=== PATIENT | female | born 1960 | race Caucasian/White ===

== ENCOUNTER 2017-12-24 15:59 | Emergency (ER) | payer OTHER, SELFPAY ==
--- OUTSIDE RECORDS SUMMARY | 2017-12-24 16:03 | XMS REPORT | Clinical Summary ---
:1960 Author Organization [facility] Address [address] [place] [address] Phone Care Team Providers Name Role Phone Unavailable Primary Care Provider Unavailable Allergies No Known Allergies Current Medications Prescription Sig. Disp. Refills Start Date End Date Status gabapentin Take 1 63 capsule 0 12/14/2017 01/04/2018 Active (NEURONTIN) 100 MG capsule (100 capsuleIndications: mg total) by Small bowel mouth 3 perforation (HCC) (three) times daily for 21 days. HYDROcodone-acetami Take 1-2 30 tablet 0 12/14/2017 12/29/2017 Active nophen (NORCO tablets by 5-325) 5-325 mg per mouth every 4 tabletIndications: (four) hours Small bowel as needed for perforation (HCC) up to 15 days. Max Daily Amount: 12 tablets magnesium oxide Take 1 tablet 270 tablet 0 12/14/2017 03/14/2018 Active (MAG-OX) 400 mg (400 mg tabletIndications: total) by Small bowel mouth 3 perforation (HCC) (three) times daily for 90 days. methocarbamol Take 2 240 tablet 0 12/14/2017 01/13/2018 Active (ROBAXIN) 750 MG tablets tabletIndications: (1,500 mg Small bowel total) by perforation (HCC) mouth 4 (four) times daily for 30 days. potassium chloride Take 15 mLs 500 mL 0 12/14/2017 Active (KAYCIEL) 20 mEq/15 (20 mEq mL total) by solutionIndications mouth daily. : Small bowel perforation (HCC) traMADol (ULTRAM) Take 1 tablet 30 tablet 0 12/14/2017 12/29/2017 Active 50 mg (50 mg total) tabletIndications: by mouth Small bowel every 6 (six) perforation (HCC) hours as needed for up to 15 days. Max Daily Amount: [address] 1 patch 10 patch 0 12/16/2017 01/15/2018 Active (TRANSDERM-SCOP) 1 (1.5 mg mg over 3 days total) onto patchIndications: the skin Small bowel every third perforation (HCC) day for 30 days. ondansetron Take 1 tablet 120 tablet 1 12/14/2017 01/13/2018 Active (ZOFRAN, (4 mg total) HYDROCHLORIDE,) 4 by mouth MG every 6 (six) tabletIndications: hours as Small bowel needed for perforation (HCC) Nausea for up to 30 days. nystatin Take 5 mLs 220 mL 0 12/14/2017 12/25/2017 Active (MYCOSTATIN) (500,000 100,000 unit/mL Units total) suspensionIndicatio by mouth 4 ns: Small bowel (four) times perforation (HCC) daily for 11 days. fluconazole Take 1 tablet 7 tablet 0 12/15/2017 12/14/2017 Discontinued (DIFLUCAN) 100 MG (100 mg tabletIndications: total) by Small bowel mouth daily perforation (HCC) for 7 days. nystatin Take 5 mLs 140 mL 0 12/14/2017 12/14/2017 Discontinued (MYCOSTATIN) (500,000 100,000 unit/mL Units total) suspensionIndicatio by mouth 4 ns: Small bowel (four) times perforation (HCC) daily for 7 days. fluconazole Take 1 tablet 8 tablet 0 12/15/2017 12/23/2017 (DIFLUCAN) 100 MG (100 mg tabletIndications: total) by Small bowel mouth daily perforation (HCC) for 8 days. Active Problems Problem Noted Date Severe protein-calorie malnutrition (HCC) 11/08/2017 Small bowel perforation and open abdomen s/p washout, repair SBR x2 11/03/2017 (11/01), [Hx OSH] SBR x2, Tayolr procedure, open abdomen (10/18, 2/5-7) Sepsis following intra-abdominal surgery (HCC) 11/02/2017 Overview: First operations at OSH On total parenteral nutrition (TPN) 10/29/2017 Anemia, unspecified type 10/28/2017 Hypotension 10/28/2017 Small bowel obstruction (HCC) 10/27/2017 Smoker 10/27/2017 COPD (chronic obstructive pulmonary disease) (HCC) 10/27/2017 Encounters Date Type Specialty Care Team Description 12/08/2017 Anesthesia Event Gastroenterology Oliva Kumar MD 12/08/2017 Procedure Pass Gastroenterology 12/08/2017 Surgery Gastroenterology Addison Ta UPPER Timur ENDOSCOPY,BIOPSY 11/10/2017 Anesthesia Event Enrique Velázquez, STUDIO OPERATIONS ENGINEER IN CHARGE 11/10/2017 Procedure Pass 11/10/2017 Surgery Soumya Rainey LAPAROTOMY,EXPLORAT FMD DAVID Fu 11/07/2017 Anesthesia Event Anthony Alvarez MD 11/07/2017 Procedure Pass 11/07/2017 Surgery [place], LAPAROTOMY,EXPLORAT DAVID Maza MD 11/05/2017 Anesthesia Event Jina Pascual, STUDIO OPERATIONS ENGINEER IN CHARGE 11/05/2017 Procedure Pass 11/05/2017 Surgery [place], LAPAROTOMY,EXPLORAT DAVID Maza MD 11/04/2017 Procedure Pass 11/04/2017 Surgery [place], EXPLORATION,ABDOMEN Torey Duckworth MD 11/03/2017 Anesthesia Event Josselin Ellis MD 11/01/2017 Orders Only General Internal Medicine 11/01/2017 Procedure Pass 11/01/2017 Soumya Watson EXPLORATION,ABDOMEN F., 10/31/2017 Anesthesia Event Tonja River MD 10/27/[address] [facility], Small bowel - Encounter Medicine Torey Duckworth, perforation and 12/14/2017 open abdomen s/p Addison Ta washout, repair SBR Timur x2 (11/01), [Hx OSH] SBR x2, Taylor procedure, open abdomen (10/18, 2-7) (Primary Dx);Open wound of anterior abdominal wall with complication, initial encounter;Perforate d viscus;Hyperglycemi a;Moderate protein-calorie malnutrition (HCC);Other emphysema (HCC);On total parenteral nutrition (TPN);Smoker;Acute blood loss anemia;Leukocytosis , unspecified type;Hypokalemia after 12/23/2016 Social History Tobacco Use Types Packs/Day Years Used Date Heavy Tobacco Smoker Cigarettes Alcohol Use Drinks/Week oz/Week Comments Yes Sex Assigned at Date Recorded Not on file Last Filed Vital Signs Vital Sign Reading Time Taken Blood Pressure 139/69 12/14/2017 4:00 PM CDT Pulse 90 12/14/2017 4:00 PM CDT Temperature 35.9 C (96.7 F) 12/14/2017 4:00 PM CDT Respiratory Rate 18 12/14/2017 4:00 PM CDT Oxygen Saturation 94% 12/14/2017 4:00 PM CDT Inhaled Oxygen Concentration - - Weight 47.7 kg (105 lb 3.2 oz) 12/12/2017 3:22 AM CDT Height 157.5 cm (5' 2") 10/27/2017 8:00 PM BROKERAGE COORDINATOR Body Mass Index 19.24 12/12/2017 3:22 AM CDT Plan of Treatment Not on file Procedures Procedure Name Priority Date/Time Associated Diagnosis Comments UPPER ENDOSCOPY,BIOPSY 12/08/2017 10:00 AM Epigastric abdominal CDT pain LAPAROTOMY,EXPLORATORY 11/10/2017 3:20 AM INTERNAL ABDOMINAL BROKERAGE COORDINATOR BLEEDING Special Needs EMERGENCY-TO BE DONE NOW!!! WASHOUT,ABDOMINAL 11/07/2017 9:00 AM BROKERAGE COORDINATOR OPEN ABDOMEN LAPAROTOMY,EXPLORATORY 11/07/2017 9:00 AM BROKERAGE COORDINATOR OPEN ABDOMEN LAPAROTOMY,EXPLORATORY 11/05/2017 8:00 AM BROKERAGE COORDINATOR S/P EX LAP CLOSURE,ESOPHAGOSTOMY/ 11/04/2017 12:10 PM BROKERAGE COORDINATOR Ischemic bowel disease FISTULA-THORACIC/ ABDOMINAL (HCC) WASHOUT,ABDOMINAL 11/04/2017 12:10 PM BROKERAGE COORDINATOR Ischemic bowel disease (HCC) EXPLORATION,ABDOMEN 11/04/2017 12:10 PM BROKERAGE COORDINATOR Ischemic bowel disease (HCC) EXPLORATION,ABDOMEN 11/01/2017 10:45 AM BROKERAGE COORDINATOR OPEN ABDOMEN, ISCHEMIC BOWEL Special Needs (REQ TF) after 12/23/2016 Results PERMANENT LAB REPORT - SCAN (12/15/2017 2:10 PM)RHYTHM STRIP - SCAN (2017 2:10 PM)Calcium, Ionized (12/14/2017 6:12 AM)Only the most recent of43 resultswithin the time period is included. Component Value Ref Range Calcium, Ion 0.98 (L) 1.12 - 1.27 mmol/L pH, Blood 7.46 Specimen Performing Laboratory Blood - Line, Venous [facility] [address] [address] CBC with platelet count + automated diff (12/14/2017 6:12 AM)Only the most recent of45 resultswithin the time period is included. Component Value Ref Range WBC 10.5 3.5 - 10.5 K/L RBC 2.92 (L) 3.93 - 5.22 M/L Hemoglobin 8.5 (L) 11.2 - 15.7 GM/DL Hematocrit 27.5 (L) 34.1 - 44.9 % MCV 94.2 79.4 - 94.8 fL MCH 29.1 25.6 - 32.2 pg MCHC 30.9 (L) 32.2 - 35.5 GM/DL RDW 14.1 11.7 - 14.4 % Platelets 330 150 - 450 K/CU MM MPV 9.3 (L) 9.4 - 12.3 fL nRBC 0 0 - 0 /100 WBC % Neutros 66 % % Lymphs 27 % % Monos 5 % % Eos 0 % % Baso 0 % # Neutros 6.91 (H) 1.56 - 6.13 K/L # Lymphs 2.86 1.18 - 3.74 K/L # Monos 0.54 (H) 0.24 - 0.36 K/L # Eos 0.04 0.04 - 0.36 K/L # Baso 0.02 0.01 - 0.08 K/L Immature Granulocytes-Relative 1 0 - 1 % Specimen Performing Laboratory Blood - Line, Venous [address] [address] CBC with platelet count + automated diff (12/14/2017 6:12 AM)Only the most recent of45 resultswithin the time period is included. Specimen Performing Laboratory Blood Narrative The following orders were created for panel order CBC with platelet count + automated diff. Procedure Abnormality Status --------- ------ CBC with platelet count ...[[id number]]AbnormalFinal result Please view results for these tests on the individual orders. Triglycerides (12/14/2017 6:12 AM)Only the most recent of6 resultswithin the time period is included. Component Value Ref Range Triglycerides 193 mg/dL Specimen Performing Laboratory Blood - Line, Venous [address] [address] Narrative TRIGLYCERIDE REFERENCE RANGE Low Risk<150 Borderline Risk 150-199 High Qciz537-124 Very High Risk >=500 Phosphorus (12/14/2017 6:12 AM)Only the most recent of57 resultswithin the time period is included. Component Value Ref Range Phosphorus 3.3 2.3 - 4.7 mg/dL Specimen Performing Laboratory Blood - Line, Venous [address] [address] Magnesium (12/14/2017 6:12 AM)Only the most recent of58 resultswithin the time period is included. Component Value Ref Range Magnesium 1.2 (L) 1.6 - 2.6 mg/dL Specimen Performing Laboratory Blood - Line, Venous [address] [address] Basic Metabolic Panel (12/14/2017 6:12 AM)Only the most recent of64 resultswithin the time period is included. Component Value Ref Range Sodium 136 136 - 145 meq/L Potassium 3.4 (L) 3.5 - 5.1 meq/L Chloride 102 98 - 107 meq/L CO2 23 22 - 29 meq/L BUN 3 (L) 7 - 21 mg/dL Creatinine 0.49 (L) 0.57 - 1.25 mg/dL Glucose 102 70 - 105 mg/dL Calcium 8.1 (L) 8.4 - 10.2 mg/dL EGFR 129Comment: ESTIMATED GFR IS NOT ACCURATE mL/min/1.73 sq m CREATININE CLEARANCE IN PREDICTING GLOMERULAR FILTRATION RATE. ESTIMATED GFR IS NOT APPLICABLE FOR DIALYSIS PATIENTS. Specimen Performing Laboratory Blood - Line, Venous [address] [address] REPORT OF PROCEDURE - ENDOSCOPY URL (12/13/2017 9:44 AM)CT abdomen/pelvis with IV contrast (12/12/2017 7:17 PM)Only the most recent of4 resultswithin the time period is included. Specimen Performing Laboratory GE RIS Narrative FINAL REPORT CT scan of the abdomen and pelvis. CLINICAL HISTORY: Evaluate for intra-abdominal source of leukocytosis, fevers, distention. COMPARISON STUDY: December 13, 2017. TECHNIQUE: Contiguous helical slices were acquired through the abdomen and pelvis post administration of intravenous contrast. No oral contrast was administered. This exam was performed according to our department dose optimization program which includes automated exposure control, adjustment of the mA and/or kV according to the patient's size and/or use of iterative reconstruction technique.. FINDINGS: Severe degenerative changes in the lung bases. There is bibasilar atelectasis or consolidation. The liver demonstrates scattered small granulomas. Tiny low-attenuation lesions are seen which are too small to characterize. The spleen also demonstrates no adrenal masses. The pancreas, adrenal glands and kidneys are within normal limits. There is a 4.6 x 4.1 cm cyst in the lower pole of the right kidney. Multiple dilated small bowel loops are seen measuring up to 4.4 cm in size, similar to previous. There has been extensive prior bowel surgery. A colostomy is seen in the left lower quadrant. A transition zone is difficult to identify. There is a residual rectosigmoid Taylor's pouch. Diverticulosis is seen. Generalized anasarca is seen. The uterus has been resected The bladder appears distended. Atop the right dome of the bladder is a 4.6 x 1.6 cm region of gas and fluid which may represent an extraluminal collection but this cannot be said with certainty. The aorta is normal in caliber. Atherosclerosis is seen. An open wound is seen anteriorly. Diffuse anasarca is present. Bone windows demonstrate degenerative changes. IMPRESSION: 1. Trace bilateral pleural effusions with adjacent atelectasis or consolidation. 2. Multiple dilated small bowel loops, as on previous. A small bowel or proximal colonic obstruction cannot be excluded. 3. Right renal and hepatic cysts. 4. Diffuse anasarca. 5. Colostomy left lower quadrant with a residual rectosigmoid Taylor's pouch in the pelvis. 6. Gas and fluid atop the right dome of the bladder which may be extraluminal in nature and represent an abscess. This cannot be said with certainty however. It is near a staple line. Signed: Magdi Rolon MD Report Verified Date/Time:12/12/2017 20:56:49 Reading Location: [address] Consult Reading Room Procedure Note Interface, External Ris In - 12/12/2017 8:58 PM CDT FINAL REPORT CT scan of the abdomen and pelvis. CLINICAL HISTORY: Evaluate for intra-abdominal source of leukocytosis, fevers, distention. COMPARISON STUDY: December 13, 2017. TECHNIQUE: Contiguous helical slices were acquired through the abdomen and pelvis post administration of intravenous contrast. No oral contrast was administered. This exam was performed according to our department dose optimization program which includes automated exposure control, adjustment of the mA and/or kV according to the patient's size and/or use of iterative reconstruction technique.. FINDINGS: Severe degenerative changes in the lung bases. There is bibasilar atelectasis or consolidation. The liver demonstrates scattered small granulomas. Tiny low-attenuation lesions are seen which are too small to characterize. The spleen also demonstrates no adrenal masses. The pancreas, adrenal glands and kidneys are within normal limits. There is a 4.6 x 4.1 cm cyst in the lower pole of the right kidney. Multiple dilated small bowel loops are seen measuring up to 4.4 cm in size, similar to previous. There has been extensive prior bowel surgery. A colostomy is seen in the left lower quadrant. A transition zone is difficult to identify. There is a residual rectosigmoid Taylor's pouch. Diverticulosis is seen. Generalized anasarca is seen. The uterus has been resected The bladder appears distended. Atop the right dome of the bladder is a 4.6 x 1.6 cm region of gas and fluid which may represent an extraluminal collection but this cannot be said with certainty. The aorta is normal in caliber. Atherosclerosis is seen. An open wound is seen anteriorly. Diffuse anasarca is present. Bone windows demonstrate degenerative changes. IMPRESSION: 1. Trace bilateral pleural effusions with adjacent atelectasis or consolidation. 2. Multiple dilated small bowel loops, as on previous. A small bowel or proximal colonic obstruction cannot be excluded. 3. Right renal and hepatic cysts. 4. Diffuse anasarca. 5. Colostomy left lower quadrant with a residual rectosigmoid Taylor's pouch in the pelvis. 6. Gas and fluid atop the right dome of the bladder which may be extraluminal in nature and represent an abscess. This cannot be said with certainty however. It is near a staple line. Signed: Magdi Rolon MD Report Verified Date/Time: 12/12/2017 20:56:49 Reading Location: [facility] [id number] Consult Reading Room Manual Differential (12/12/2017 11:29 AM)Only the most recent of7 resultswithin the time period is included. Component Value Ref Range Total Counted WBC Morphology Normal Platelet Morphology Normal RBC Morphology Normal Specimen Performing Laboratory Blood [address] [address] Prealbumin (12/12/2017 4:14 AM)Only the most recent of4 resultswithin the time period is included. Component Value Ref Range Prealbumin 8 (L) 14 - 45 mg/dL Specimen Performing Laboratory Blood - Central Venous Line [address] [address] POC-Glucose meter (12/10/2017 12:10 PM)Only the most recent of172 resultswithin the time period is included. Component Value Ref Range POC-Glucose Meter 134 (H)Comment: TESTED AT [address] 70 - 110 mg/[place] [address] Specimen Performing Laboratory Blood [address] [address] Fungus culture + smear (12/08/2017 11:05 AM)Only the most recent of4 resultswithin the time period is included. Component Value Ref Range Result 2+ Maryanne parapsilosis (A) Fungus Smear No fungi seen Specimen Performing Laboratory [place] - Esophagus [address] [address] Tissue Exam (12/08/2017 10:36 AM)Only the most recent of2 resultswithin the time period is included. Component Value Ref Range Case Report Surgical Pathology Report Case: [id number] Authorizing Provider:Addison Taected: 12/08/2017 1036 Ordering Location: [address] Received: 12/08/2017 1356 Service Pathologist: Ze Truong MD Specimens: A) - Biopsy, Gastric, random B) - Biopsy, Esophagus, random DIAGNOSIS A. STOMACH, RANDOM, BIOPSY: - REACTIVE GASTROPATHY WITH REGENERATIVE EPITHELIAL CHANGES - SMALL FOCUS OF DUODENAL MUCOSA, SUGGESTIVE OF JUNCTIONAL SAMPLING (SEE COMMENT) - NEGATIVE FOR H. PYLORI BY WARTHIN-STARRY STAIN B. ESOPHAGUS, RANDOM, BIOPSY: - ESOPHAGITIS WITH PARAKERATOSIS, DESQUAMATION, AND REACTIVE CHANGES - RARE DETATCHED FUNGAL ELEMENTS (YEASTS) AND BACTERIAL COLONIES IDENTIFIED ADJACENT TO DESQUAMATED SQUAMOUS CELLS, MOST COMPATIBLE WITH COLONIZATION (SEE COMMENT) - PENDING SPECIAL STAINS TO FURTHER EVALUATE Signing Pathologist Direct Phone Line: [phone] COMMENT A. Small focus of duodenal mucosa including Trent glands are seen adjacent to the gastric mucosa. This most likely represents sampling of junction between stomach and duodenum. Much less likely, it may represent intestinal metaplasia. B. Sections show squamous epithelium with intraepithelial neutrophils/ eosinphils and reactive changes, compatible with esophagitis. Additionally, desquamated squamous cells with rare surface detached fu ngal elements (yeasts) and bacterial colonies are seen. However, GMS stain performed on the deeper section fail to show additional fungal elements. The limited detached yeasts seen may be due to coloniz ation. Clinical correlation is recommended. Additional stains are being performed to rule out viral infection (HSV and CMV). An addendum will follow. CPT Code(s) 63470 X 2, 72455 X 2, 21293, 88349 CLINICAL HISTORY Epigastric abdominal pain SPECIMEN SOURCE A. Random gastric biopsy; B. Random esophagus biopsy GROSS DESCRIPTION Specimen A: Received in formalin labeled "biopsy, gastric" are four fragments measuring 0.8 x 0.6 x 0.1 cm in aggregate. Entirely submitted A1. Specimen B: Received in formalin labeled "biopsy, esophagus" are multiple fragments measuring 1.1 x 0.8 x 0.1 cm in aggregate. Entirely submitted B1. DB/ pl MICROSCOPIC DESCRIPTION Performed. SPECIAL STUDIES The following special studies were performed on this case and the interpretation is incorporated in the diagnostic report above: Specimen Performing Laboratory Tissue - Biopsy, Gastric; Tissue - Biopsy, [facility] Esophagus [address] [place] [address] CBC (Hemogram only) (12/07/2017 5:23 AM)Only the most recent of8 resultswithin the time period is included. Component Value Ref Range WBC 5.8 3.5 - 10.5 K/L RBC 2.76 (L) 3.93 - 5.22 M/L Hemoglobin 8.2 (L) 11.2 - 15.7 GM/DL Hematocrit 25.9 (L) 34.1 - 44.9 % MCV 93.8 79.4 - 94.8 fL MCH 29.7 25.6 - 32.2 pg MCHC 31.7 (L) 32.2 - 35.5 GM/DL RDW 13.7 11.7 - 14.4 % Platelets 194 150 - 450 K/CU MM MPV 10.4 9.4 - 12.3 fL nRBC 0 0 - 0 /100 WBC Specimen Performing Laboratory Blood - Line, Venous [address] [address] Urinalysis w/Microscopic (12/04/2017 4:03 PM)Only the most recent of3 resultswithin the time period is included. Component Value Ref Range Color, UA Yellow Clarity, UA Clear Specific [place], UA 1.008 1.001 - 1.035 pH, UA 6.0 5.0 - 8.0 Protein, UA Negative Negative Glucose, UA Negative Negative Ketones, UA Negative Negative Bilirubin, UA Negative Negative Blood, UA Negative Negative Nitrite, UA Negative Negative Leukocytes, UA Negative Negative Urobilinogen, UA 0.2 0.2 - 1.0 mg/dL RBC, UA <1 /HPF WBC, UA 2 /HPF Specimen Source Urine, Clean Catch Specimen Performing Laboratory Urine - Urine, Clean Catch [address] [address] Urine culture (12/04/2017 4:03 PM)Only the most recent of2 resultswithin the time period is included. Component Value Ref Range Result Result 50-59,000 col/mL Maryanne glabrata (A) Specimen Performing Laboratory Urine - Urine, Unspecified Source [address] [address] Urinalysis w/Microscopic + Reflex to Culture (11/29/2017 4:36 PM)Only the most recent of2 resultswithin the time period is included. Component Value Ref Range Color, UA Yellow Clarity, UA Clear Specific [place], UA 1.015 1.001 - 1.035 pH, UA 5.5 5.0 - 8.0 Protein, UA 20 mg/dL (A) Negative Glucose, UA Negative Negative Ketones, UA Negative Negative Bilirubin, UA Negative Negative Blood, UA Negative Negative Nitrite, UA Negative Negative Leukocytes, UA Negative Negative Urobilinogen, UA 0.2 0.2 - 1.0 mg/dL RBC, UA <1 /HPF WBC, UA 1 /HPF Bacteria, UA Occasional Mucus Rare Specimen Source Specimen Performing Laboratory Urine - Urine, Clean Catch [address] [place] [address] Prothrombin time/INR (11/29/2017 2:36 AM)Only the most recent of44 resultswithin the time period is included. Component Value Ref Range Protime 15.0 (H) 11.7 - 14.7 seconds INR 1.2 <=5.9 Specimen Performing Laboratory Blood [address] [address] Narrative RECOMMENDED COUMADIN/WARFARIN INR THERAPY RANGES STANDARD DOSE: 2.0 - 3.0 Includes: PROPHYLAXIS for venous thrombosis, systemic embolization; TREATMENT for venous thrombosis and/or pulmonary embolus. HIGH RISK: Target INR is 2.5-3.5 for patients with mechanical heart valves. Potassium (11/21/2017 6:47 PM) Component Value Ref Range Potassium 5.4 (H) 3.5 - 5.1 meq/L Specimen Performing Laboratory Blood - Central Venous Line [address] [address] Vancomycin level, trough (11/19/2017 7:11 PM)Only the most recent of5 resultswithin the time period is included. Component Value Ref Range Vancomycin Tr 14.9 10.0 - 20.0 ug/mL Specimen Performing Laboratory Blood - Central Venous Line [address] [address] Narrative Before vanc dose Hepatic function panel (11/19/2017 2:31 AM)Only the most recent of3 resultswithin the time period is included. Component Value Ref Range Protein, Total 5.7 (L) 6.0 - 8.3 gm/dL Albumin 2.6 (L) 3.5 - 5.0 g/dL Total Bilirubin 0.6 0.2 - 1.2 mg/dL Bilirubin, Direct 0.4 0.1 - 0.5 mg/dL Alkaline Phosphatase 83 40 - 150 U/L AST 16 5 - 34 U/L ALT 19 6 - 55 U/L Specimen Performing Laboratory Blood [address] [address] TRANSFUSION SERVICE REPORT - SCAN (11/18/2017 5:40 PM)Only the most recent of9 resultswithin the time period is included.T Spot TB (11/18/2017 11:45 AM) Component Value Ref Range T-Spot TB Negative Neg Ctrl Spot Count 0 Panel A Spot 0 Panel B Spot [address] >20 Scan Result Specimen Performing Laboratory Blood [facility] [address] [facility], [address] [place] [address] HIV-1 Antigen with HIV-1/2 Antibody (11/18/2017 7:27 AM)Only the most recent of2 resultswithin the time period is included. Component Value Ref Range HIV-1 Antigen with HIV 1&2 Antibody Nonreactive Nonreactive Specimen Performing Laboratory Blood [address] [address] Hepatitis panel, acute (11/18/2017 7:27 AM) Component Value Ref Range Hep A IgM Nonreactive Nonreactive Hep B C IgM Nonreactive Nonreactive Hepatitis C Ab Nonreactive Nonreactive hepatitis B Surface Ag Nonreactive Nonreactive Specimen Performing Laboratory Blood [address] [address] PT/aPTT (11/18/2017 4:00 AM)Only the most recent of5 resultswithin the time period is included. Component Value Ref Range Protime 16.9 (H) 11.7 - 14.7 seconds INR 1.4 <=5.9 PTT 32.6 22.5 - 36.0 seconds Specimen Performing Laboratory Blood [address] [address] Narrative RECOMMENDED COUMADIN/WARFARIN INR THERAPY RANGES STANDARD DOSE: 2.0 - 3.0 Includes: PROPHYLAXIS for venous thrombosis, systemic embolization; TREATMENT for venous thrombosis and/or pulmonary embolus. HIGH RISK: Target INR is 2.5-3.5 for patients with mechanical heart valves. Prepare plasma (11/17/2017 11:55 PM)Only the most recent of10 resultswithin the time period is included. Component Value Ref Range Unit ABO O Pos UNIT NUMBER [id number] Status TRANSFUSED Blood Bank Product FFP PRODUCT CODE [id number] Unit ABO O Pos UNIT NUMBER [id number] Status TRANSFUSED Blood Bank Product FFP PRODUCT CODE [id number] Specimen Performing Laboratory Blood SAFETRACE TX CT drainage abdominal (11/17/2017 2:26 PM) Specimen Performing Laboratory GE RIS Narrative FINAL REPORT CT-guided drainage catheter placement dated 11/17/2017 Name of practitioner performing procedure: Lucy Peraza M.D. Names of fire control assistant: None Procedure: Drainage placement into the abdominal abscess Preprocedure diagnosis: Abdominal abscess Postprocedure diagnosis: Abdominal abscess Specimens removed: 10 cc of cloudy fluid Estimated blood loss: None Complication: None Sedation: Moderate sedation was administered. 0.5 mg of Versed and 50 mcg fentanyl IV was used for moderate sedation monitored under my direction. Total intraservice time of the sedation was 20 minutes. The patient's vital signs were monitored throughout the procedure and recorded in the patient's medical record by the nurse. Graft/Implants: None Technique: This exam was performed according to our departmental dose-optimization program, which includes automated exposure control, adjustment of the mA and/or kV according to patient size and/or use of interactive reconstruction technique. After obtaining informed consent, CT-guided drainage catheter placement was performed under usual sterile technique. A 10 Turkmen pigtail catheter was placed into the right mid abdominal air-fluid collection. The drainage catheter was left in place, secured to skin with suture, and connected to bulb suction. Approximately 10 cc of cloudy fluid was removed. The specimen was sent to microbiology. Impression: Successful CT-guided drainage catheter placement into the right mid abdominal air-fluid collection. Signed: Lucy Peraza MD Report Verified Date/Time:11/17/2017 17:13:40 Reading Location: [address] Body Reading Room Procedure Note Interface, External Ris In - 11/17/2017 5:15 PM BROKERAGE COORDINATOR FINAL REPORT CT-guided drainage catheter placement dated 11/17/2017 Name of practitioner performing procedure: Lucy Peraza M.D. Names of fire control assistant: None Procedure: Drainage placement into the abdominal abscess Preprocedure diagnosis: Abdominal abscess Postprocedure diagnosis: Abdominal abscess Specimens removed: 10 cc of cloudy fluid Estimated blood loss: None Complication: None Sedation: Moderate sedation was administered. 0.5 mg of Versed and 50 mcg fentanyl IV was used for moderate sedation monitored under my direction. Total intraservice time of the sedation was 20 minutes. The patient's vital signs were monitored throughout the procedure and recorded in the patient's medical record by the nurse. Graft/Implants: None Technique: This exam was performed according to our departmental dose-optimization program, which includes automated exposure control, adjustment of the mA and/or kV according to patient size and/or use of interactive reconstruction technique. After obtaining informed consent, CT-guided drainage catheter placement was performed under usual sterile technique. A 10 Turkmen pigtail catheter was placed into the right mid abdominal air-fluid collection. The drainage catheter was left in place, secured to skin with suture, and connected to bulb suction. Approximately 10 cc of cloudy fluid was removed. The specimen was sent to microbiology. Impression: Successful CT-guided drainage catheter placement into the right mid abdominal air-fluid collection. Signed: Lucy Peraza MD Report Verified Date/Time: 11/17/2017 17:13:40 Reading Location: [facility] B1 C013Y CT Body Reading Room Anaerobic culture (11/17/2017 2:17 PM)Only the most recent of3 resultswithin the time period is included. Component Value Ref Range Result Result <1+ Lactobacillus rhamnosus (A) Specimen Performing Laboratory Body Fluid - Abdomen [address] [address] Narrative NO Anaerobes Isolated Body fluid culture + gram stain (11/17/2017 2:17 PM) Component Value Ref Range Result Result 4+ Pseudomonas aeruginosa (Mucoid-phenotype) (A) Result 1+ Maryanne parapsilosis (A) Gram Stain Result <1+ WBCs Gram Stain Result 1+ gram negative rods Gram Stain Result 2+ yeast Specimen Performing Laboratory Body Fluid - Abdomen [address] [address] Organism Antibiotic Method Susceptibility Pseudomonas aeruginosa Amikacin <=8: Susceptible (Mucoid-phenotype) Pseudomonas aeruginosa Aztreonam 16: Resistant (Mucoid-phenotype) Pseudomonas aeruginosa Cefepime <=4: Susceptible (Mucoid-phenotype) Pseudomonas aeruginosa Ceftazidime <=1: Susceptible (Mucoid-phenotype) Pseudomonas aeruginosa Ciprofloxacin 2: Resistant (Mucoid-phenotype) Pseudomonas aeruginosa Doripenem >4: Resistant (Mucoid-phenotype) Pseudomonas aeruginosa Gentamicin <=2: Susceptible (Mucoid-phenotype) Pseudomonas aeruginosa Imipenem >8: Resistant (Mucoid-phenotype) Pseudomonas aeruginosa Levofloxacin 8: Resistant (Mucoid-phenotype) Pseudomonas aeruginosa Meropenem >8: Resistant (Mucoid-phenotype) Pseudomonas aeruginosa Piperacillin <=16: Susceptible (Mucoid-phenotype) Pseudomonas aeruginosa Piperacillin + Tazobactam <=8: Susceptible (Mucoid-phenotype) Pseudomonas aeruginosa Tobramycin <=2: Susceptible (Mucoid-phenotype) Maryanne parapsilosis Fluconazole 0.25: Susceptible Maryanne parapsilosis Micafungin 2: Susceptible Maryanne parapsilosis Voriconazole 0.008: Susceptible Transfuse plasma (11/16/2017 9:03 PM)Only the most recent of19 resultswithin the time period is included.Incubated 1:1 Mixing Study (11/16/2017 3:28 PM) Component Value Ref Range Immediate PT 19.7 (H) 11.7 - 14.7 seconds Immediate PTT 36.7 (H) 22.5 - 36.0 seconds Immediate 1:1 Mix PT 14.8 (H) 11.7 - 14.7 seconds Immediate 1:1 Mix PTT 28.8 22.5 - 36.0 seconds 1:1 MIX, 1 HOUR INC PT 15.0 seconds 1:1 MIX, 1 HOUR INC PTT 30.4 seconds MIXING STUDY PATHOLOGIST Prolonged PT and PTT with INTERPRETATION complete correction suggestive of factor deficiency Pathologist: Ellyn Hamilton MD (electronic signature) Specimen Performing Laboratory Blood [place] [address] Thromboelastograph (TEG) (11/16/2017 3:28 PM)Only the most recent of3 resultswithin the time period is included. Component Value Ref Range TEG Activated Clotting Time 5.6 4.0 - 7.0 minutes TEG Fibrinogen Activity 76.5 (H) 61.0 - 73.0 degrees TEG Platelet Aggregation 72.1 (H) 55.0 - 65.0 MM TEG Fibrinolysis 0.1 0.0 - 5.0 % TEG-H Activated Clotting Time 5.8 4.0 - 7.0 minutes TEG-H Fibrinogen Activity 75.6 (H) 61.0 - 73.0 degrees TEG-H Platelet Aggregation 69.9 (H) 55.0 - 65.0 MM TEG-H Fibrinolysis 0.0 0.0 - 5.0 % Specimen Performing Laboratory Blood - Central Venous Line [facility] [address] [address] Fibrinogen (11/16/2017 3:28 PM)Only the most recent of5 resultswithin the time period is included. Component Value Ref Range Fibrinogen 335 225 - 434 mg/dl Specimen Performing Laboratory Blood - Central Venous Line [address] [address] Type and screen, automated (11/16/2017 3:47 AM)Only the most recent of4 resultswithin the time period is included. Component Value Ref Range ABO/RH AUTOMATED (BEAKER) O POSITIVE Ab Scrn NEGATIVE Specimen Performing Laboratory Blood [address] [address] Hemoglobin and hematocrit (11/14/2017 3:57 AM)Only the most recent of24 resultswithin the time period is included. Component Value Ref Range Hemoglobin 9.6 (L) 11.2 - 15.7 GM/DL Hematocrit 29.8 (L) 34.1 - 44.9 % Specimen Performing Laboratory Blood [address] [address] Prepare Leuko-Red RBC (11/11/2017 11:54 PM)Only the most recent of5 resultswithin the time period is included. Component Value Ref Range CROSSMATCH COMPATIBLE Unit ABO O Pos UNIT NUMBER [id number] Status TRANSFUSED Blood Bank Product RED BLOOD CELLS PRODUCT CODE J3262H76 CROSSMATCH COMPATIBLE Unit ABO O Pos UNIT NUMBER [id number] Status RETURNED FROM ISSUE Blood Bank Product RED BLOOD CELLS PRODUCT CODE [id number] Specimen Performing Laboratory Other [place] Prepare RBC (11/11/2017 11:54 PM)Only the most recent of4 resultswithin the time period is included. Component Value Ref Range CROSSMATCH COMPATIBLE Unit ABO O Pos UNIT NUMBER [id number] Status TRANSFUSED Blood Bank Product RED BLOOD CELLS PRODUCT CODE L2239B92 CROSSMATCH COMPATIBLE Unit ABO O Pos UNIT NUMBER [id number] Status RETURNED FROM ISSUE Blood Bank Product RED BLOOD CELLS PRODUCT CODE [id number] Specimen Performing Laboratory [place] Transfuse Leuko-Red RBC (11/11/2017 9:28 PM)Only the most recent of14 resultswithin the time period is included.XR chest 1 view portable / bedside ( 3:30 PM)Only the most recent of7 resultswithin the time period is included. Specimen Performing Laboratory GE RIS Narrative FINAL REPORT Chest one view INDICATION: Check PICC placement. COMPARISON: 11/08/2017 IMPRESSION: Right PICC line extends to the SVC. ET tube has been removed. NG tube and left subclavian line are again noted. The cardiomediastinal contours are stable accounting for positioning. Left retrocardiac consolidation or atelectasis is stable with adjacent pleural effusion. Pulmonary vascular congestion has regressed. Mild right basilar atelectasis is improved. No pneumothorax is seen. Signed: Jabari Grace MD Report Verified Date/Time:11/11/2017 15:51:54 Reading Location: [facility] C013 Consult Reading Room Procedure Note Interface, External Ris In - 11/11/2017 3:54 PM BROKERAGE COORDINATOR FINAL REPORT Chest one view INDICATION: Check PICC placement. COMPARISON: 11/08/2017 IMPRESSION: Right PICC line extends to the SVC. ET tube has been removed. NG tube and left subclavian line are again noted. The cardiomediastinal contours are stable accounting for positioning. Left retrocardiac consolidation or atelectasis is stable with adjacent pleural effusion. Pulmonary vascular congestion has regressed. Mild right basilar atelectasis is improved. No pneumothorax is seen. Signed: Jabari Grace MD Report Verified Date/Time: 11/11/2017 15:51:54 Reading Location: [facility] C013W Consult Reading Room Blood gas, arterial (11/10/2017 1:05 PM)Only the most recent of10 resultswithin the time period is included. Component Value Ref Range pH, Arterial 7.53 (H) 7.35 - 7.45 pCO2, Arterial 30 (L) 35 - 45 mmHg pO2, Arterial 96 (H) 80 - 90 mmHg O2 Sat, Arterial 97.9 (H) 96.0 - 97.0 % HCO3, Arterial 24 21 - 29 mmol/L Base Excess, Arterial 2.3 -2.0 - 3.0 mmol/L Patient Temperature 37.5 C FIO2 40.0 % Specimen Performing Laboratory Blood, Arterial - Line, Arterial [address] [address] [facility] CRITICAL LABS (ABG,NA,K,H&H,GLUCOSE) (11/10/2017 8:08 AM)Only the most recent of3 resultswithin the time period is included. Specimen Performing Laboratory Blood, Arterial Narrative The following orders were created for panel order [facility] CRITICAL LABS (ABG,NA,K,H&H,GLUCOSE). Procedure Abnormality Status --------- ------ Blood gas, arterial[[id number]]AbnormalFinal result Sodium Na-Stat Lab[[id number]] NormalFinal result Potassium-Stat Lab[[id number]] AbnormalFinal result Glucose-Stat Lab[[id number]] AbnormalFinal result HGB/HCT (H&H)-Stat Lab[[id number]] AbnormalFinal result Please view results for these tests on the individual orders. Potassium-Stat Lab (11/10/2017 8:08 AM)Only the most recent of3 resultswithin the time period is included. Component Value Ref Range Potassium 3.1 (L) 3.6 - 5.5 meq/L Specimen Performing Laboratory Blood, [address] [address] Sodium Na-Stat Lab (11/10/2017 8:08 AM)Only the most recent of3 resultswithin the time period is included. Component Value Ref Range Sodium 139 135 - 148 meq/L Specimen Performing Laboratory Blood, Arterial [address] [address] Glucose-Stat Lab (11/10/2017 8:08 AM)Only the most recent of3 resultswithin the time period is included. Component Value Ref Range Glucose 152 (H) 70 - 110 mg/dL Specimen Performing Laboratory Blood, [address] [address] HGB/HCT (H&H)-Stat Lab (11/10/2017 8:08 AM)Only the most recent of3 resultswithin the time period is included. Component Value Ref Range Hemoglobin 6.9 (L) 12.0 - 15.0 g/dL Hematocrit 20.0 (L) 36.0 - 45.0 % Specimen Performing Laboratory Blood, Arterial [address] [address] [facility] IBD (11/10/2017 3:56 AM) Component Value Ref Range ASCA IGA HORTECNIA 35.0 (H) <8.5 EU/ml ASCA IGG HORTENCIA 83.4 (H) <17.8 EU/ml Anti-OMPC IGA HORTENCIA 8.2 <10.9 EU/ml Anti-CBIR1 HORTENCIA 20.6 <78.4 EU/ml [id number] IGG HORTENCIA 30.6 <44.8 EU/ml Anti-FLAX IGG HORTENCIA 39.3 (H) <33.4 EU/ml IBD-Specific PANCA Autoantibody Comment: See report <19.8 EU/ml HORTENCIA IFA Perinuclear Pattern Not Detected Not Detected DNAse Sensitivity Not Detected Not Detected ATG 16L 1 SNP ([id number]) Variant detected ECM1 SNP ([id number]) Variant detected NKX2-3 SNP ([id number]) Variant not detected STAT3 SNP ([id number]) Variant detected ICAM-1 0.54 (H) <0.54 ug/ml VCAM-1 1.36 (H) <0.68 ug/ml VEGF 1616 (H) <345 pg/ml CRP 42.9 (H) <13.2 mg/L CALIXTO 161.3 (H) <10.9 mg/L Interpretation Pattern consistent with IBD Pattern not consistent with - Crohn's Disease (A) IBD Specimen Performing Laboratory Blood [employer] [address] [facility], [address] [place] [address] Blood culture (11/10/2017 3:56 AM)Only the most recent of5 resultswithin the time period is included. Component Value Ref Range Result No growth in 5 days Specimen Performing Laboratory Blood - Line, Arterial [address] [address] Sedimentation rate (11/09/2017 3:59 AM) Component Value Ref Range Sed Rate 26 0 - 30 mm/HR Specimen Performing Laboratory Blood - Line, Arterial [address] [address] CMV PCR, quantitative (11/07/2017 5:05 PM) Component Value Ref Range CMV DNA Viral Load Negative or below the linear range of the assay (<375 copies/mL) Specimen Performing Laboratory Blood [address] [address] Narrative Cytomegalovirus (CMV) infection can cause significant disease in immunosuppressed patients. However, it is common for CMV to manifest as a limited infection which is of no clinical significance in immunosuppressed patients or in healthy individuals. Viral load measurements are helpful to identify clinical CMV infection and to guide the pre-emptive management of antiviral therapy.For treatment of CMV infection due to reactivation in transplant recipients, a threshold between 4,000 and 5, 000 copies/mL is suggested.For treatment of primary CMV infection, a lower threshold can be used. CMV infection may also be monitored using weekly serial measurements. Serial measurements of CMV DNA viral load can be evaluated by identifying a 10-fold change, as well as assessing the CMV DNA viral load and the clinical context for each patient. The plasma CMV DNA viral load was detected using quantitative polymerase chain reaction and fluorescent monitoring of a specific hybridized probe. Genetic variation and other factors can affect the accuracy of nucleic acid testing. Therefore, the results should be interpreted in light of clinical data. A negative result may not exclude the presence of CMV disease. This test was developed and its performance characteristics determined by the [facility] Pathology Department, Section of Molecular Pathology. It has not been cleared or approved by the U.S. Food and Drug Administration (FDA), since FDA approval is not required for clinical use of the test. Validation was done as required by The Clinical Laboratory Improvement Amendments of 1988. XR X-RAY NO CHARGE (11/07/2017 10:42 AM) Specimen Performing Laboratory GE RIS Narrative FINAL REPORT Radiograph of the abdomen, intraoperative Reason for exam: previous retained item Comparison:No prior Discussion: A feeding tube is present. A surgical drain is seen in the pelvis, along with a rectal tube. No other surgical material identified. Note is made of splenic calcifications. Suture material is also seen in the pelvis. Results were called to the OR. Signed: Neville Kulkarni MD Report Verified Date/Time:11/07/2017 10:48:17 Reading Location: [facility] C0[facility] Ortho Consult Reading Room Procedure Note Interface, External Ris In - 11/07/2017 10:50 AM BROKERAGE COORDINATOR FINAL REPORT Radiograph of the abdomen, intraoperative Reason for exam: previous retained item Comparison: No prior Discussion: A feeding tube is present. A surgical drain is seen in the pelvis, along with a rectal tube. No other surgical material identified. Note is made of splenic calcifications. Suture material is also seen in the pelvis. Results were called to the OR. Signed: Neville Kulkarni MD Report Verified Date/Time: 11/07/2017 10:48:17 Reading Location: [facility] C013X Ortho Consult Reading Room Prepare cryoprecipitate (11/06/2017 11:54 PM) Component Value Ref Range Unit ABO O Pos UNIT NUMBER [id number] Status TRANSFUSED Blood Bank Product CRYOPRECIPITATE PRODUCT CODE [id number] Specimen Performing Laboratory Blood [employer] [place] aPTT (11/05/2017 3:37 PM)Only the most recent of4 resultswithin the time period is included. Component Value Ref Range PTT 39.9 (H) 22.5 - 36.0 seconds Specimen Performing Laboratory Blood - Line, Arterial [address] [address] Transfuse cryoprecipitate (11/05/2017 9:38 AM)Only the most recent of2 resultswithin the time period is included.Platelet count (11/05/2017 9:27 AM) Component Value Ref Range Platelets 153Comment: Discordant result compared to previous 150 - 450 K/CU MM result; clinical correlation required. Specimen Performing Laboratory Blood [address] [address] XR abdomen / KUB 1 view (11/03/2017 11:29 AM)Only the most recent of2 resultswithin the time period is included. Specimen Performing Laboratory GE RIS Narrative FINAL REPORT Abdomen one view shows NG tube extending to the gastric body level. Signed: Jaiden Santana MD Report Verified Date/Time:11/03/2017 12:10:21 Reading Location: [facility] Radiology Reading Room Procedure Note Interface, External Ris In - 11/03/2017 12:12 PM BROKERAGE COORDINATOR FINAL REPORT Abdomen one view shows NG tube extending to the gastric body level. Signed: Jaiden Santana MD Report Verified Date/Time: 11/03/2017 12:10:21 Reading Location: [facility] Radiology Reading Room Protein, 24 hour urine (11/02/2017 5:50 PM) Component Value Ref Range Protein, 24hr Urine 372 (H) 0 - 300 mg/24hr Volume, Urine 2325 ml Protein, Urine 16 (H) 0 - 14 mg/dL Specimen Performing Laboratory Urine - Urine, Shah [address] [address] Blood gas, venous (11/01/2017 2:52 PM) Component Value Ref Range pH, Angel 7.41 7.32 - 7.42 pCO2, Angel 60 (H) 41 - 51 mmHg pO2, Angel 46 (H) 25 - 40 mmHg O2 Sat, Angel 80.7 (H) 40.0 - 70.0 % HCO3, Angel 37 (H) 21 - 29 mmol/L Base Excess, Angel 11.3 (H) -2.0 - 3.0 mmol/L Patient Temperature 37.0 C FIO2 60.0 % Specimen Performing Laboratory Blood - Line, Venous [address] [address] ANESTHESIA PERIPHERAL BLOCK (11/01/2017 12:42 PM) Narrative Efra Philippe MD 11/01/2017 12:42 PM Peripheral Block Patient location during procedure: post-op Start time: 11/01/2017 12:17 PM End time: 11/01/2017 12:21 PM Reason for block: procedure for pain, at surgeon's request and post-op pain management Staffing Anesthesiologist: EFRA PHILIPPE Performed by: anesthesiologist Preanesthetic Checklist Completed: patient identified, site marked, surgical consent, pre-op evaluation, timeout performed, IV checked, risks and benefits discussed and monitors and equipment checked Peripheral Block Patient position: supine Prep: ChloraPrep and site prepped and draped Patient monitoring: heart rate, light technician and continuous pulse ox Block type: TAP Laterality: bilateral Injection technique: single-shot Procedures: ultrasound guided and landmark technique Local infiltration: bupivicaine Infiltration strength: 0.25 % Dose: 50 mL Additives: 25cc per side with Epi 1:200,000 Needle Needle type: pajunk sonotap. Needle gauge: 21 G Needle length: 100 mm Test dose: negative Assessment Injection assessment: negative aspiration for heme, no paresthesia on injection, incremental injection and local visualized surrounding nerve on ultrasound Paresthesia pain: none Heart rate change: no Slow fractionated injection: yes Additional Notes Patient tolerated well.No pain on injection or throughout procedure. Procedure Note Efra Philippe MD - 11/01/2017 12:40 PM BROKERAGE COORDINATOR Peripheral Block Patient location during procedure: post-op Start time: 11/01/2017 12:17 PM End time: 11/01/2017 12:21 PM Reason for block: procedure for pain, at surgeon's request and post-op pain management Staffing Anesthesiologist: EFRA PHILIPPE Performed by: anesthesiologist Preanesthetic Checklist Completed: patient identified, site marked, surgical consent, pre-op evaluation , timeout performed, IV checked, risks and benefits discussed and monitors and equipment checked Peripheral Block Patient position: supine Prep: ChloraPrep and site prepped and draped Patient monitoring: heart rate, light technician and continuous pulse ox Block type: TAP Laterality: bilateral Injection technique: single-shot Procedures: ultrasound guided and landmark technique Local infiltration: bupivicaine Infiltration strength: 0.25 % Dose: 50 mL Additives: 25cc per side with Epi 1:200,000 Needle Needle type: pajunk sonotap. Needle gauge: 21 G Needle length: 100 mm Test dose: negative Assessment Injection assessment: negative aspiration for heme, no paresthesia on injection , incremental injection and local visualized surrounding nerve on ultrasound Paresthesia pain: none Heart rate change: no Slow fractionated injection: yes Additional Notes Patient tolerated well. No pain on injection or throughout procedure. AFB culture + smear (11/01/2017 11:30 AM)Only the most recent of2 resultswithin the time period is included. Component Value Ref Range Result No acid-fast bacilli isolated in 42 days AFB Smear No acid fast bacilli seen Specimen Performing Laboratory Abscess - Abdomen [address] [address] Surgically obtained culture + gram stain (11/01/2017 11:30 AM)Only the most recent of2 resultswithin the time period is included. Component Value Ref Range Result Result 1+ Pseudomonas aeruginosa (A) Result 1+ Maryanne albicans (A) Result 1+ Maryanne tropicalis (A) Gram Stain Result 1+ WBCs Gram Stain Result No organisms seen Specimen Performing Laboratory Abscess - Abdomen [address] [address] Organism Antibiotic Method Susceptibility Pseudomonas aeruginosa Amikacin <=8: Susceptible Pseudomonas aeruginosa Aztreonam 8: Susceptible Pseudomonas aeruginosa Cefepime <=4: Susceptible Pseudomonas aeruginosa Ceftazidime 2: Susceptible Pseudomonas aeruginosa Ciprofloxacin 2: Resistant Pseudomonas aeruginosa Doripenem 2: Susceptible Pseudomonas aeruginosa Gentamicin <=2: Susceptible Pseudomonas aeruginosa Imipenem >8: Resistant Pseudomonas aeruginosa Levofloxacin 8: Resistant Pseudomonas aeruginosa Meropenem 4: Resistant Pseudomonas aeruginosa Piperacillin <=16: Susceptible Pseudomonas aeruginosa Piperacillin + Tazobactam <=8: Susceptible Pseudomonas aeruginosa Tobramycin <=2: Susceptible SPIN/CONCENTRATION CHARGE (11/01/2017 11:30 AM)Only the most recent of2 resultswithin the time period is included. Component Value Ref Range Concentration charged Done Specimen Performing Laboratory Abscess - Abdomen [address] [address] ECG 12 lead (11/01/2017 9:33 AM) Specimen Performing Laboratory GE MUSE Narrative Ventricular Rate 101 BPM Atrial Rate 101 BPM P-R Interval 142 ms QRS Duration 74 ms Q-T Interval 342 ms QTC Calculation(Bazett) 443 ms P Billings 45 degrees R Billings 69 degrees T Bill[place] 73 degrees Sinus tachycardia Minimal voltage criteria for LVH, may be normal variant Borderline ECG No previous ECGs available Confirmed by MD Brewster Roberto ([id number]) on 11/01/2017 1:22:04 PM Procedure Note Interface, External Ris In - 11/01/2017 1:22 PM BROKERAGE COORDINATOR Ventricular Rate 101 BPM Atrial Rate 101 BPM P-R Interval 142 ms QRS Duration 74 ms Q-T Interval 342 ms QTC Calculation(Bazett) 443 ms P Bill[place] 45 degrees R Bill[place] 69 degrees T [place] 73 degrees Sinus tachycardia Minimal voltage criteria for LVH, may be normal variant Borderline ECG No previous ECGs available Confirmed by MD Brewster Roberto ([id number]) on 11/01/2017 1:22:04 PM Anti-Neutrophil Cytoplasmic Ab (ANCA) (10/30/2017 8:29 PM) Component Value Ref Range Proteinase-3 Ab <1.0 <1.0 AI Comment: <1.0 AI No Antibody Detected > or=1.0 AI Antibody Detected Autoantibodies to proteinase-3 (OK-3) are accepted as characteristic for granulomatosis with polyangiitis (GPA, Mary Anne's), and are detectable in 95% of the histologically proven cases. The cytoplasmic IFA pattern, (c-ANCA), is based largely on autoantibody to OK-3 which serves as the primary antigen. These autoantibodies are present in active disease. Myeloperoxidase Ab <1.0 <1.0 AI Comment: <1.0 AI No Antibody Detected > or=1.0 AI Antibody Detected Autoantibodies to myeloperoxidase (MPO) are commonly associated with the following small-vessel vasculitides: microscopic polyangiitis, polyarteritis nodosa, Churg-Aj syndrome, necrotizing and crescentic glomerulonephritis and occasionally granulomatosis with polyangiitis (GPA, Mary Anne's). The perinuclear IFA pattern, (p-ANCA) is based largely on autoantibody to myeloperoxidase which serves as the primary antigen. These autoantibodies are present in active disease. Specimen Performing Laboratory Blood [facility] [address] [address] Narrative Performing Lab [facility] [address] [place] [address] Blu Downey MD, PhD Anti-Nuclear Antibody (BECCA) (10/30/2017 8:29 PM) Component Value Ref Range BECCA Negative Negative Specimen Performing Laboratory Blood [address] [address] Sodium, random urine (10/30/2017 1:02 PM) Component Value Ref Range Sodium Urine 82 meq/L Specimen Performing Laboratory Urine - Urine, [facility] [address] [place] [address] Narrative Reference Range: No Normals Eosinophil smear (10/30/2017 1:02 PM) Component Value Ref Range Eosinophil Smear Rare EOS=less than 5% WBCs seen are EOS (A)Comment: Many No EOS seen yeasts seen Specimen Performing Laboratory Urine - Urine, [facility] [address] [place] [address] CTA abdomen & pelvis (10/28/2017 9:41 PM) Specimen Performing Laboratory GE RIS Narrative FINAL REPORT CT angiogram of the abdomen and pelvis Reason for study: History of bowel perforation and resections at an outside hospital, possible acute on chronic mesenteric ischemia Comparison: KUB, earlier today Technique: Pre contrast imaging was performed of the abdomen and pelvis. Post contrast imaging was performed in the arterial and venous phases after intravenous contrast injection. 3-D post processing was performed at a freestanding workstation for vascular evaluation. Dose modulation, iterative reconstruction, and/or weight based adjustment of the mA/kV was utilized to reduce the radiation dose to as low as reasonably achievable. Findings: The abdominal aorta is patent and of normal caliber measuring 2.4 cm in diameter at the diaphragmatic hiatus, 1.8 cm at the renal artery origin, and 1.1 cm at the bifurcation. Scattered mild to moderate calcified and noncalcified atherosclerotic plaque is seen. The celiac, superior mesenteric, and inferior mesenteric arteries are patent. Mild luminal narrowing is identified at the origin of the superior mesenteric artery where some calcified plaque is identified. It measures 4 mm in caliber at its narrowest spot (at the origin). Minimal dilatation is identified just distally. The origin of the celiac and inferior mesenteric arteries measure 6 and 4 mm, respectively. No atherosclerotic plaque is identified. No thrombus is identified in the mesenteric vessels. However, peripheral SMA and EDIE branches are small. No pseudoaneurysm is seen. Single renal arteries are identified bilaterally with some scattered calcified plaque at the ostia. The iliofemoral arteries are patent with some scattered calcified and noncalcified plaque. The portal venous system is patent. The IVC and branches are patent, although this exam is not tailored for venous evaluation. The patient has undergone previous bowel resection. A portion of the left colon has been resected with a Taylor's pouch and left lower quadrant colostomy. There are multiple suture lines present in the central abdomen from small bowel resection and anastomosis. Some small bowel loops are mildly dilated measuring between 3.5 and 4 cm in diameter. Some bowel wall thickening is identified in these and other small bowel loops. Some colonic wall thickening is also noted. No high-grade bowel obstruction is noted.No pneumatosis is identified. Some oral contrast is identified in the bowel from previous CT. No leak of enteric contrast is identified into the peritoneal cavity. A nasogastric tube is present with tip in the stomach. An open abdomen is identified. There are pockets of air in the mesentery. A rim-enhancing fluid collection is identified in the dependent pelvis anterior to the sacral promontory measuring 2.5 x 1.9 cm. A surgical drain is present inferior to this collection. Edema is also identified in the small bowel mesentery. Minimal low-density peritoneal fluid is also identified in the paracolic gutters. Small liver cysts are identified. Calcified splenic granulomas are present. The adrenal glands and pancreas are unremarkable. The gallbladder is distended. There is no bile duct dilatation. The kidneys enhance symmetrically. Kidney cysts are seen, largest on the right. There is no hydronephrosis. The urinary bladder is empty with Shah catheter present. The uterus and ovaries are not identified. No abdominal or pelvic lymphadenopathy is identified. Moderate pleural effusions and lower lobe compressive atelectasis is seen. Anasarca is also identified. The bones are intact. IMPRESSION 1. Previous exploratory laparotomies with small and large bowel resection. Multiple sites of mid small bowel resection and anastomosis are noted along with partial left colon resection and Roger pouch and left lower quadrant colostomy. 2. The mesenteric vessels are patent, although some luminal narrowing is identified at the origin of the SMA (where calcified atherosclerotic plaque is seen). No mesenteric arterial thrombus is seen. There is narrowing of the peripheral mesenteric artery branches due to vasoconstriction. No mesenteric venous thrombus. 3. Scattered small and large bowel wall thickening. Some small bowel loops are also mildly distended. These are nonspecific findings, given the patient's history. No pneumatosis or high-grade obstruction. 4. Open abdomen. Pockets of free intraperitoneal air are noted, as expected with an open abdomen and recent surgeries. A small loculated fluid collection is identified in the upper pelvis. 5. Third spacing of fluid. Signed: Khoi Chand MD Report Verified Date/Time:10/29/2017 12:50:17 Reading Location: [place] [address] Cardiology MRI Procedure Note Interface, External Ris In - 10/29/2017 12:52 PM [employer] COORDINATOR FINAL REPORT CT angiogram of the abdomen and pelvis Reason for study: History of bowel perforation and resections at an outside hospital, possible acute on chronic mesenteric ischemia Comparison: KUB, earlier today Technique: Pre contrast imaging was performed of the abdomen and pelvis. Post contrast imaging was performed in the arterial and venous phases after intravenous contrast injection. 3-D post processing was performed at a freestanding workstation for vascular evaluation. Dose modulation, iterative reconstruction, and/or weight based adjustment of the mA/kV was utilized to reduce the radiation dose to as low as reasonably achievable. Findings: The abdominal aorta is patent and of normal caliber measuring 2.4 cm in diameter at the diaphragmatic hiatus, 1.8 cm at the renal artery origin, and 1.1 cm at the bifurcation. Scattered mild to moderate calcified and noncalcified atherosclerotic plaque is seen. The celiac, superior mesenteric, and inferior mesenteric arteries are patent. Mild luminal narrowing is identified at the origin of the superior mesenteric artery where some calcified plaque is identified. It measures 4 mm in caliber at its narrowest spot (at the origin). Minimal dilatation is identified just distally. The origin of the celiac and inferior mesenteric arteries measure 6 and 4 mm, respectively. No atherosclerotic plaque is identified. No thrombus is identified in the mesenteric vessels. However, peripheral SMA and EDIE branches are small. No pseudoaneurysm is seen. Single renal arteries are identified bilaterally with some scattered calcified plaque at the ostia. The iliofemoral arteries are patent with some scattered calcified and noncalcified plaque. The portal venous system is patent. The IVC and branches are patent, although this exam is not tailored for venous evaluation. The patient has undergone previous bowel resection. A portion of the left colon has been resected with a Taylor's pouch and left lower quadrant colostomy. There are multiple suture lines present in the central abdomen from small bowel resection and anastomosis. Some small bowel loops are mildly dilated measuring between 3.5 and 4 cm in diameter. Some bowel wall thickening is identified in these and other small bowel loops. Some colonic wall thickening is also noted. No high-grade bowel obstruction is noted. No pneumatosis is identified. Some oral contrast is identified in the bowel from previous CT. No leak of enteric contrast is identified into the peritoneal cavity. A nasogastric tube is present with tip in the stomach. An open abdomen is identified. There are pockets of air in the mesentery. A rim-enhancing fluid collection is identified in the dependent pelvis anterior to the sacral promontory measuring 2.5 x 1.9 cm. A surgical drain is present inferior to this collection. Edema is also identified in the small bowel mesentery. Minimal low-density peritoneal fluid is also identified in the paracolic gutters. Small liver cysts are identified. Calcified splenic granulomas are present. The adrenal glands and pancreas are unremarkable. The gallbladder is distended. There is no bile duct dilatation. The kidneys enhance symmetrically. Kidney cysts are seen, largest on the right. There is no hydronephrosis. The urinary bladder is empty with Shah catheter present. The uterus and ovaries are not identified. No abdominal or pelvic lymphadenopathy is identified. Moderate pleural effusions and lower lobe compressive atelectasis is seen. Anasarca is also identified. The bones are intact. IMPRESSION 1. Previous exploratory laparotomies with small and large bowel resection. Multiple sites of mid small bowel resection and anastomosis are noted along with partial left colon resection and Roger pouch and left lower quadrant colostomy. 2. The mesenteric vessels are patent, although some luminal narrowing is identified at the origin of the SMA (where calcified atherosclerotic plaque is seen). No mesenteric arterial thrombus is seen. There is narrowing of the peripheral mesenteric artery branches due to vasoconstriction. No mesenteric venous thrombus. 3. Scattered small and large bowel wall thickening. Some small bowel loops are also mildly distended. These are nonspecific findings, given the patient's history. No pneumatosis or high-grade obstruction. 4. Open abdomen. Pockets of free intraperitoneal air are noted, as expected with an open abdomen and recent surgeries. A small loculated fluid collection is identified in the upper pelvis. 5. Third spacing of fluid. 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 Other organisms and resistance markers not contained in this PCR panel cannot be excluded and follow-up of traditional culture results is required. This sample was tested at the [facility] Clinical Microbiology Laboratory using the [employer] Blood Culture ID Panel. This test is FDA cleared for in vitro diagnostic use and has been verified and approved by the [facility] Clinical [facility]biolog[facility] for clinical use. Reference Range: Not Detected Lactic acid, venous, whole blood (10/27/2017 8:29 PM) Component Value Ref Range Lactate, Venous 1.2 0.5 - 2.2 mmol/L Specimen Performing Laboratory Blood [address] [address] Narrative Effective 01/21/2016: Units/Reference Range Change New: 0.5-2.2 mmol/LPrevious: 5-20 mg/dL Comprehensive metabolic panel (10/27/2017 8:29 PM) Component Value Ref Range Protein, Total 3.6 (L) 6.0 - 8.3 gm/dL Albumin 1.5 (L) 3.5 - 5.0 g/dL Alkaline Phosphatase 43 40 - 150 U/L Total Bilirubin 2.0 (H) 0.2 - 1.2 mg/dL Sodium 131 (L) 136 - 145 meq/L Potassium 4.6 3.5 - 5.1 meq/L Chloride 101 98 - 107 meq/L CO2 25 22 - 29 meq/L BUN 16 7 - 21 mg/dL Creatinine 0.65 0.57 - 1.25 mg/dL Glucose 109 (H) 70 - 105 mg/dL Calcium 6.5 (L) 8.4 - 10.2 mg/dL AST 22 5 - 34 U/L ALT 10 6 - 55 U/L EGFR 93Comment: ESTIMATED GFR IS NOT ACCURATE mL/min/1.73 sq m CREATININE CLEARANCE IN PREDICTING GLOMERULAR FILTRATION RATE. ESTIMATED GFR IS NOT APPLICABLE FOR DIALYSIS PATIENTS. Specimen Performing Laboratory Blood [facility] [address] [place] [address] after 12/23/2016
--- OUTSIDE RECORDS SUMMARY | 2017-12-24 16:12 | XMS REPORT ---
:1960 [facility] [address] [place] [address] Care Team Providers Name Role Phone DENYS PERKINS Unavailable Unavailable Problems This patient has no known problems. Allergies, Adverse Reactions, Alerts This patient has no known allergies or adverse reactions. Medications This patient has no known medications. Results Test Description Test Time Test Comments Text Results Atomic Results Result Comments AFB CULTURE + SMEAR 2017-12-19 14:43:00 Test Item Value Reference Range Comments CULTURE (BEAKER) (test ejpf=0790) No acid-fast bacilli isolated in 42 days AFB SMEAR (BEAKER) (test bqrb=921) No acid fast bacilli seen AFB CULTURE + [id number] 14:43:00 Test Item Value Reference Range Comments CULTURE (BEAKER) (test No acid-fast bacilli isolated sghe=2420) in 42 days AFB SMEAR (BEAKER) (test No acid fast bacilli seen hgnr=673) FUNGUS CULTURE + [id number] 11:33:00 Test Item Value Reference Range Comments CULTURE (BEAKER) (test 2+ Maryanne parapsilosis fyay=8926) FUNGUS SMEAR (BEAKER) (test No fungi seen pezg=3041) [id number] 07:23:00 Test Item Value Reference Range Comments TRIGLYCERIDES (BEAKER) (test dubg=563) 193 mg/dL TRIGLYCERIDE REFERENCE RANGELow Risk <150Borderline Risk 150-199High Risk 200-499Very High Risk>=[id number] 07:23:00 Test Item Value Reference Range Comments MAGNESIUM (BEAKER) (test hphe=918) 1.2 mg/dL 1.6-2.6 [id number] 07:23:00 Test Item Value Reference Range Comments PHOSPHORUS (BEAKER) (test ftde=595) 3.3 mg/dL 2.3-4.7 BASIC METABOLIC [id number] 07:23:00 Test Item Value Reference Range Comments SODIUM (BEAKER) (test 136 meq/L 136-145 ajrr=871) POTASSIUM (BEAKER) (test 3.4 meq/L 3.5-5.1 xjzh=474) CHLORIDE (BEAKER) (test 102 meq/L 98-107 nitc=798) CO2 (BEAKER) (test 23 meq/L 22-29 gygv=209) BLOOD UREA NITROGEN 3 mg/dL 7-21 (BEAKER) (test skna=075) CREATININE (BEAKER) (test 0.49 mg/dL 0.57-1.25 opqq=111) GLUCOSE RANDOM (BEAKER) 102 mg/dL 70-105 (test lovd=944) CALCIUM (BEAKER) (test 8.1 mg/dL 8.4-10.2 fwoh=363) EGFR (BEAKER) (test 129 mL/min/1.73 sq m ESTIMATED GFR IS NOT rwga=4588) ACCURATE CREATININE CLEARANCE IN PREDICTING GLOMERULAR FILTRATION RATE. ESTIMATED GFR IS NOT APPLICABLE FOR DIALYSIS PATIENTS. CALCIUM, [id number] 07:08:00 Test Item Value Reference Range Comments CALCIUM IONIZED (BEAKER) (test kgsj=899) 0.98 mmol/L 1.12-1.27 PH, BLOOD (BEAKER) (test zsve=0961) 7.46 CBC W/PLT COUNT & AUTO [id number] 06:38:00 Test Item Value Reference Range Comments WHITE BLOOD CELL COUNT (BEAKER) (test ofhd=682) 10.5 K/ L 3.5-10.5 RED BLOOD CELL COUNT (BEAKER) (test zwgr=275) 2.92 M/ L 3.93-5.22 HEMOGLOBIN (BEAKER) (test eepi=878) 8.5 GM/DL 11.2-15.7 HEMATOCRIT (BEAKER) (test rlbp=002) 27.5 % 34.1-44.9 MEAN CORPUSCULAR VOLUME (BEAKER) (test thez=492) 94.2 fL 79.4-94.8 MEAN CORPUSCULAR HEMOGLOBIN (BEAKER) (test 29.1 pg 25.6-32.2 rayu=680) MEAN CORPUSCULAR HEMOGLOBIN CONC (BEAKER) (test 30.9 GM/DL 32.2-35.5 vakw=643) RED CELL DISTRIBUTION WIDTH (BEAKER) (test 14.1 % 11.7-14.4 fqgs=785) PLATELET COUNT (BEAKER) (test qjeg=411) 330 K/CU MM 150-450 MEAN PLATELET VOLUME (BEAKER) (test sjzb=985) 9.3 fL 9.4-12.3 NUCLEATED RED BLOOD CELLS (BEAKER) (test 0 /100 WBC 0-0 wsvt=686) NEUTROPHILS RELATIVE PERCENT (BEAKER) (test 66 % pocg=199) LYMPHOCYTES RELATIVE PERCENT (BEAKER) (test 27 % sbff=019) MONOCYTES RELATIVE PERCENT (BEAKER) (test 5 % jqfg=063) EOSINOPHILS RELATIVE PERCENT (BEAKER) (test 0 % scrf=415) BASOPHILS RELATIVE PERCENT (BEAKER) (test 0 % dysq=461) NEUTROPHILS ABSOLUTE COUNT (BEAKER) (test 6.91 K/ L 1.56-6.13 dufv=470) LYMPHOCYTES ABSOLUTE COUNT (BEAKER) (test 2.86 K/ L 1.18-3.74 bdxv=523) MONOCYTES ABSOLUTE COUNT (BEAKER) (test 0.54 K/ L 0.24-0.36 unyd=358) EOSINOPHILS ABSOLUTE COUNT (BEAKER) (test 0.04 K/ L 0.04-0.36 spev=663) BASOPHILS ABSOLUTE COUNT (BEAKER) (test 0.02 K/ L 0.01-0.08 yhlx=055) IMMATURE GRANULOCYTES-RELATIVE PERCENT (BEAKER) 1 % 0-1 (test epzf=5049) CALCIUM, [id number] 06:41:00 Test Item Value Reference Range Comments CALCIUM IONIZED (BEAKER) (test bueu=945) 1.02 mmol/L 1.12-1.27 PH, BLOOD (BEAKER) (test ycir=8661) 7.43 BASIC METABOLIC [id number] 06:20:00 Test Item Value Reference Range Comments SODIUM (BEAKER) (test 137 meq/L 136-145 dbjc=222) POTASSIUM (BEAKER) (test 3.5 meq/L 3.5-5.1 xwbv=992) CHLORIDE (BEAKER) (test 109 meq/L 98-107 jbqg=665) CO2 (BEAKER) (test 21 meq/L 22-29 thqm=988) BLOOD UREA NITROGEN 4 mg/dL 7-21 (BEAKER) (test xmec=721) CREATININE (BEAKER) (test 0.50 mg/dL 0.57-1.25 pzkx=129) GLUCOSE RANDOM (BEAKER) 88 mg/dL 70-105 (test bwbe=995) CALCIUM (BEAKER) (test 7.7 mg/dL 8.4-10.2 dnbz=453) EGFR (BEAKER) (test 126 mL/min/1.73 sq m ESTIMATED GFR IS NOT rfgd=6718) ACCURATE CREATININE CLEARANCE IN PREDICTING GLOMERULAR FILTRATION RATE. ESTIMATED GFR IS NOT APPLICABLE FOR DIALYSIS PATIENTS. [id number] 06:14:00 Test Item Value Reference Range Comments PHOSPHORUS (BEAKER) (test ivzb=132) 3.1 mg/dL 2.3-4.7 [id number] 06:14:00 Test Item Value Reference Range Comments MAGNESIUM (BEAKER) (test pkgq=311) 2.0 mg/dL 1.6-2.6 CBC W/PLT COUNT & AUTO [id number] 05:15:00 Test Item Value Reference Range Comments WHITE BLOOD CELL COUNT (BEAKER) (test woqs=260) 7.6 K/ L 3.5-10.5 RED BLOOD CELL COUNT (BEAKER) (test ltvp=545) 2.42 M/ L 3.93-5.22 HEMOGLOBIN (BEAKER) (test wpbb=895) 7.2 GM/DL 11.2-15.7 HEMATOCRIT (BEAKER) (test elju=631) 23.0 % 34.1-44.9 MEAN CORPUSCULAR VOLUME (BEAKER) (test iwpx=487) 95.0 fL 79.4-94.8 MEAN CORPUSCULAR HEMOGLOBIN (BEAKER) (test 29.8 pg 25.6-32.2 aibc=958) MEAN CORPUSCULAR HEMOGLOBIN CONC (BEAKER) (test 31.3 GM/DL 32.2-35.5 vfdu=230) RED CELL DISTRIBUTION WIDTH (BEAKER) (test 14.3 % 11.7-14.4 haya=530) PLATELET COUNT (BEAKER) (test ljyp=977) 272 K/CU MM 150-450 MEAN PLATELET VOLUME (BEAKER) (test etsg=987) 9.2 fL 9.4-12.3 NUCLEATED RED BLOOD CELLS (BEAKER) (test 0 /100 WBC 0-0 mqru=470) NEUTROPHILS RELATIVE PERCENT (BEAKER) (test 54 % xide=386) LYMPHOCYTES RELATIVE PERCENT (BEAKER) (test 34 % zjkc=303) MONOCYTES RELATIVE PERCENT (BEAKER) (test 9 % wzlt=542) EOSINOPHILS RELATIVE PERCENT (BEAKER) (test 3 % gjmq=558) BASOPHILS RELATIVE PERCENT (BEAKER) (test 0 % pakg=340) NEUTROPHILS ABSOLUTE COUNT (BEAKER) (test 4.07 K/ L 1.56-6.13 uvjw=085) LYMPHOCYTES ABSOLUTE COUNT (BEAKER) (test 2.57 K/ L 1.18-3.74 osse=516) MONOCYTES ABSOLUTE COUNT (BEAKER) (test 0.70 K/ L 0.24-0.36 wmaz=824) EOSINOPHILS ABSOLUTE COUNT (BEAKER) (test 0.19 K/ L 0.04-0.36 utzf=702) BASOPHILS ABSOLUTE COUNT (BEAKER) (test 0.02 K/ L 0.01-0.08 fhix=493) IMMATURE GRANULOCYTES-RELATIVE PERCENT (BEAKER) 1 % 0-1 (test rkwt=5977) CT, [id number] 20:56:00FINAL REPORT CT scan of the abdomen and pelvis. CLINICAL HISTORY: Evaluate for intra-abdominal source of leukocytosis, fevers, distention. COMPARISON STUDY: December 13, 2017. TECHNIQUE : Contiguous helical slices were acquired through the [...] low-attenuation lesions are seen which are too smallto characterize. The spleen also demonstrates no adrenal masses. The pancreas, adrenal glands and kidneys are within normal limits. There is a 4.6 x 4.1 cm cyst in the lower pole of the right kidney. Multiple dilated small bowel loops are seen measuring up to 4.4 cm in size, similar to previous. Therehas been extensive prior bowel surgery. A colostomy is seen in the left lower quadrant. A transitionzone is difficult to identify. There is a [...] is present. Bone windows demonstrate degenerative changes. IMPRESSION:1. Trace bilateral pleural effusions with adjacent atelectasis or consolidation.2. Multiple dilated small bowel loops, as on previous. A small bowel or proximal colonic obstruction cannot be excluded.3. Right renal and hepatic cysts.4. Diffuse anasarca.5. 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 Gas and fluid atop the right dome of the bladder which may be extraluminal in nature and represent an abscess. This cannot be said with certainty however. It is near a staple line. Signed: Magdi Rolon MDReport Verified Date/Time: 12/12/2017 20:56:49 Reading Location: [address] Consult Reading Room Electronicallysigned by : MAGDI ROLON M.D. on 12/12/2017 08:56 PMCBC W/PLT COUNT & AUTO [id number] 13:44:00 Test Item Value Reference Range Comments WHITE BLOOD CELL COUNT (BEAKER) (test trqf=430) 9.3 K/ L 3.5-10.5 RED BLOOD CELL COUNT (BEAKER) (test tnig=171) 2.56 M/ L 3.93-5.22 HEMOGLOBIN (BEAKER) (test zplz=695) 7.5 GM/DL 11.2-15.7 HEMATOCRIT (BEAKER) (test guic=200) 24.2 % 34.1-44.9 MEAN CORPUSCULAR VOLUME (BEAKER) (test qufj=175) 94.5 fL 79.4-94.8 MEAN CORPUSCULAR HEMOGLOBIN (BEAKER) (test 29.3 pg 25.6-32.2 wnar=708) MEAN CORPUSCULAR HEMOGLOBIN CONC (BEAKER) (test 31.0 GM/DL 32.2-35.5 tbpg=688) RED CELL DISTRIBUTION WIDTH (BEAKER) (test 14.4 % 11.7-14.4 ibst=798) PLATELET COUNT (BEAKER) (test chcv=521) 269 K/CU MM 150-450 MEAN PLATELET VOLUME (BEAKER) (test ynja=214) 9.2 fL 9.4-12.3 NUCLEATED RED BLOOD CELLS (BEAKER) (test 0 /100 WBC 0-0 gbng=295) NEUTROPHILS RELATIVE PERCENT (BEAKER) (test 70 % dqpp=003) LYMPHOCYTES RELATIVE PERCENT (BEAKER) (test 22 % zkdf=339) MONOCYTES RELATIVE PERCENT (BEAKER) (test 6 % jmip=599) EOSINOPHILS RELATIVE PERCENT (BEAKER) (test 2 % ssdw=136) BASOPHILS RELATIVE PERCENT (BEAKER) (test 0 % qgzw=854) NEUTROPHILS ABSOLUTE COUNT (BEAKER) (test 6.50 K/ L 1.56-6.13 tyky=954) LYMPHOCYTES ABSOLUTE COUNT (BEAKER) (test 2.06 K/ L 1.18-3.74 fykl=154) MONOCYTES ABSOLUTE COUNT (BEAKER) (test 0.51 K/ L 0.24-0.36 opao=305) EOSINOPHILS ABSOLUTE COUNT (BEAKER) (test 0.16 K/ L 0.04-0.36 ucqe=873) BASOPHILS ABSOLUTE COUNT (BEAKER) (test 0.02 K/ L 0.01-0.08 uqrs=090) IMMATURE GRANULOCYTES-RELATIVE PERCENT (BEAKER) 1 % 0-1 (test fhgu=1497) (MANUAL DIFFERENTIAL)2017-12-12 13:44:00 Test Item Value Reference Range Comments TOTAL COUNTED (BEAKER) (test cjam=7110) WBC MORPHOLOGY (BEAKER) (test tctb=559) Normal PLT MORPHOLOGY (BEAKER) (test fvxv=235) Normal RBC MORPHOLOGY (BEAKER) (test otmn=446) Normal BASIC METABOLIC [id number] 07:27:00 Test Item Value Reference Range Comments SODIUM (BEAKER) (test 132 meq/L 136-145 nndh=824) POTASSIUM (BEAKER) (test 3.8 meq/L 3.5-5.1 fdhh=409) CHLORIDE (BEAKER) (test 105 meq/L 98-107 njkj=522) CO2 (BEAKER) (test 19 meq/L 22-29 drlv=602) BLOOD UREA NITROGEN 10 mg/dL 7-21 (BEAKER) (test here=772) CREATININE (BEAKER) (test 0.59 mg/dL 0.57-1.25 rzha=113) GLUCOSE RANDOM (BEAKER) 95 mg/dL 70-105 (test ydeo=707) CALCIUM (BEAKER) (test 7.3 mg/dL 8.4-10.2 hsgq=625) EGFR (BEAKER) (test 104 mL/min/1.73 sq m ESTIMATED GFR IS NOT ibbu=1504) ACCURATE CREATININE CLEARANCE IN PREDICTING GLOMERULAR FILTRATION RATE. ESTIMATED GFR IS NOT APPLICABLE FOR DIALYSIS PATIENTS. [id number] 06:25:00 Test Item Value Reference Range Comments PHOSPHORUS (BEAKER) (test jebf=679) 2.9 mg/dL 2.3-4.7 [id number] 06:25:00 Test Item Value Reference Range Comments MAGNESIUM (BEAKER) (test vvqs=867) 1.2 mg/dL 1.6-2.6 [id number] 06:19:00 Test Item Value Reference Range Comments PREALBUMIN (BEAKER) (test mnho=437) 8 mg/dL 14-45 CALCIUM, [id number] 05:08:00 Test Item Value Reference Range Comments CALCIUM IONIZED (BEAKER) (test ycwr=403) 1.01 mmol/L 1.12-1.27 PH, BLOOD (BEAKER) (test plaw=0155) 7.41 CBC W/PLT COUNT & AUTO [id number] 14:04:00 Test Item Value Reference Range Comments WHITE BLOOD CELL COUNT (BEAKER) (test jfad=999) 14.2 K/ L 3.5-10.5 RED BLOOD CELL COUNT (BEAKER) (test lygs=394) 2.77 M/ L 3.93-5.22 HEMOGLOBIN (BEAKER) (test rnwr=282) 8.1 GM/DL 11.2-15.7 HEMATOCRIT (BEAKER) (test plzq=869) 26.0 % 34.1-44.9 MEAN CORPUSCULAR VOLUME (BEAKER) (test ejnl=209) 93.9 fL 79.4-94.8 MEAN CORPUSCULAR HEMOGLOBIN (BEAKER) (test 29.2 pg 25.6-32.2 zdpe=977) MEAN CORPUSCULAR HEMOGLOBIN CONC (BEAKER) (test 31.2 GM/DL 32.2-35.5 avtf=979) RED CELL DISTRIBUTION WIDTH (BEAKER) (test 14.1 % 11.7-14.4 qxdy=159) PLATELET COUNT (BEAKER) (test jgpv=614) 265 K/CU MM 150-450 MEAN PLATELET VOLUME (BEAKER) (test xxkj=146) 8.8 fL 9.4-12.3 NUCLEATED RED BLOOD CELLS (BEAKER) (test 0 /100 WBC 0-0 xeik=022) NEUTROPHILS RELATIVE PERCENT (BEAKER) (test 86 % ruzk=920) LYMPHOCYTES RELATIVE PERCENT (BEAKER) (test 8 % kryi=619) MONOCYTES RELATIVE PERCENT (BEAKER) (test 4 % fxpp=298) EOSINOPHILS RELATIVE PERCENT (BEAKER) (test 0 % zile=751) BASOPHILS RELATIVE PERCENT (BEAKER) (test 0 % sced=490) NEUTROPHILS ABSOLUTE COUNT (BEAKER) (test 12.27 K/ L 1.56-6.13 fjiu=447) LYMPHOCYTES ABSOLUTE COUNT (BEAKER) (test 1.20 K/ L 1.18-3.74 ocbe=336) MONOCYTES ABSOLUTE COUNT (BEAKER) (test 0.57 K/ L 0.24-0.36 jnln=322) EOSINOPHILS ABSOLUTE COUNT (BEAKER) (test 0.01 K/ L 0.04-0.36 azpx=766) BASOPHILS ABSOLUTE COUNT (BEAKER) (test 0.03 K/ L 0.01-0.08 gxep=938) IMMATURE GRANULOCYTES-RELATIVE PERCENT (BEAKER) 1 % 0-1 (test icho=2935) BASIC METABOLIC [id number] 09:23:00 Test Item Value Reference Range Comments SODIUM (BEAKER) (test 131 meq/L 136-145 zkru=608) POTASSIUM (BEAKER) (test 5.6 meq/L 3.5-5.1 ujpw=517) CHLORIDE (BEAKER) (test 105 meq/L 98-107 onib=456) CO2 (BEAKER) (test 16 meq/L 22-29 xtqy=047) BLOOD UREA NITROGEN 2 mg/dL 7-21 (BEAKER) (test ovca=697) CREATININE (BEAKER) (test 0.64 mg/dL 0.57-1.25 iqmr=560) GLUCOSE RANDOM (BEAKER) 358 mg/dL 70-105 (test paii=923) CALCIUM (BEAKER) (test 7.9 mg/dL 8.4-10.2 rpff=154) EGFR (BEAKER) (test 95 mL/min/1.73 sq m ESTIMATED GFR IS NOT xihz=1598) ACCURATE CREATININE CLEARANCE IN PREDICTING GLOMERULAR FILTRATION RATE. ESTIMATED GFR IS NOT APPLICABLE FOR DIALYSIS PATIENTS. [id number] 08:54:00 Test Item Value Reference Range Comments PHOSPHORUS (BEAKER) (test vbig=002) 3.3 mg/dL 2.3-4.7 [id number] 08:54:00 Test Item Value Reference Range Comments MAGNESIUM (BEAKER) (test hhts=007) 1.1 mg/dL 1.6-2.6 CALCIUM, [id number] 06:37:00 Test Item Value Reference Range Comments CALCIUM IONIZED (BEAKER) (test rmln=320) 1.01 mmol/L 1.12-1.27 PH, BLOOD (BEAKER) (test pldy=3489) 7.35 POCT-GLUCOSE [id number] 12:14:00 Test Item Value Reference Range Comments POC-GLUCOSE METER (BEAKER) 134 mg/dL 70-110 TESTED AT [address] (test gbhn=0978) [facility] [address] POCT-GLUCOSE [id number] 08:01:00 Test Item Value Reference Range Comments POC-GLUCOSE METER (BEAKER) 130 mg/dL 70-110 TESTED AT [address] (test yolp=8751) [place] [id number] 06:36:00 Test Item Value Reference Range Comments PHOSPHORUS (BEAKER) (test vxxy=968) 3.2 mg/dL 2.3-4.7 [id number] 06:36:00 Test Item Value Reference Range Comments MAGNESIUM (BEAKER) (test pugs=596) 1.6 mg/dL 1.6-2.6 BASIC METABOLIC [id number] 06:36:00 Test Item Value Reference Range Comments SODIUM (BEAKER) (test 133 meq/L 136-145 akyk=180) POTASSIUM (BEAKER) (test 3.8 meq/L 3.5-5.1 sbxt=153) CHLORIDE (BEAKER) (test 105 meq/L 98-107 ovnr=159) CO2 (BEAKER) (test 21 meq/L 22-29 jtpu=739) BLOOD UREA NITROGEN 2 mg/dL 7-21 (BEAKER) (test zfsu=914) CREATININE (BEAKER) (test 0.46 mg/dL 0.57-1.25 qbtf=055) GLUCOSE RANDOM (BEAKER) 102 mg/dL 70-105 (test enne=054) CALCIUM (BEAKER) (test 8.0 mg/dL 8.4-10.2 ipyu=320) EGFR (BEAKER) (test 139 mL/min/1.73 sq m ESTIMATED GFR IS NOT imbt=0442) ACCURATE CREATININE CLEARANCE IN PREDICTING GLOMERULAR FILTRATION RATE. ESTIMATED GFR IS NOT APPLICABLE FOR DIALYSIS PATIENTS. CALCIUM, [id number] 06:17:00 Test Item Value Reference Range Comments CALCIUM IONIZED (BEAKER) (test giqq=760) 1.07 mmol/L 1.12-1.27 PH, BLOOD (BEAKER) (test sedq=1543) 7.40 POCT-GLUCOSE [id number] 22:31:00 Test Item Value Reference Range Comments POC-GLUCOSE METER (BEAKER) 121 mg/dL 70-110 TESTED AT [address] (test zlwg=8620) [place] [address] POCT-GLUCOSE [id number] 18:01:00 Test Item Value Reference Range Comments POC-GLUCOSE METER (BEAKER) 132 mg/dL 70-110 TESTED AT [address] (test ttaz=6660) [place] [address] TISSUE [id number] 17:58:00Surgical Pathology Report Case: [id number] Authorizing Provider: Addison Ta Collected: 12/08/2017 1036 Ordering Location: [address] Received: 12/08/2017 1356 Service Pathologist: Ze Truong MD Specimens: A) - Biopsy, Gastric, random B) -Biopsy, Esophagus , random A. STOMACH, RANDOM, BIOPSY: - REACTIVE GASTROPATHY WITH REGENERATIVE EPITHELIAL CHANGES - SMALL FOCUS OF DUODENALMUCOSA, SUGGESTIVE OF JUNCTIONAL SAMPLING (SEE COMMENT) - NEGATIVE FOR H. PYLORI BY WARTHIN-STARRY STAINB. ESOPHAGUS, RANDOM, BIOPSY: - ESOPHAGITIS WITH PARAKERATOSIS, DESQUAMATION, AND REACTIVE CHANGES - RARE DETATCHED FUNGAL ELEMENTS (YEASTS) AND BACTERIAL COLONIES IDENTIFIED ADJACENT TO DESQUAMATED SQUAMOUS CELLS, MOST COMPATIBLE WITH COLONIZATION (SEE COMMENT) - PENDING SPECIAL STAINS TO FURTHER EVALUATE Signing Pathologist Direct Phone Line: A. Small focus of duodenal mucosa including Trent glands are seen adjacent to the gastric mucosa. This most likely represents sampling of junction between stomach and duodenum. Much less likely, it may represent intestinal metaplasia. B. Sections show squamous epithelium with intraepithelial neutrophils/ eosinphils and reactive changes, compatible with esophagitis. Additionally, desquamated squamous cells with rare surface detached fungal elements (yeasts) and bacterial colonies are seen. However, GMS stain performed on the deeper section fail to show additional fungal elements. The limited detached yeasts seen may be due to colonization. Clinical correlation is recommended. Additional stains are being performed to rule out viral infection (HSV and CMV) . An addendum will follow.84274 X 2, 95102 X 2, 27338, 51809 Epigastric abdominal painA.Random gastric biopsy; B. Random esophagus biopsySpecimen A: Received in formalin labeled "biopsy, gastric" are four fragments measuring 0.8 x 0.6 x 0.1 cm in aggregate. Entirely submitted A1. SpecimenB: Received in formalin labeled "biopsy, esophagus" are multiple fragments measuring 1.1 x 0.8 x 0.1cm in aggregate. Entirely submitted B1. DB/plPerformed.The following special studies were performed on this case and the interpretation is incorporated in the diagnostic report above:POCT-GLUCOSE [id number] 12:36: 00 Test Item Value Reference Range Comments POC-GLUCOSE METER (BEAKER) 132 mg/dL 70-[address] [facility] [address] [facility] (test mbld=7202) [facility] [address] POCT-GLUCOSE [id number] 08:46:00 Test Item Value Reference Range Comments POC-GLUCOSE METER (BEAKER) 158 mg/dL 70-[address] [facility] [address] [facility] (test ihom=3667) [facility] [address] CALCIUM, [id number] 05:59:00 Test Item Value Reference Range Comments CALCIUM IONIZED (BEAKER) (test kgel=331) 1.06 mmol/L 1.12-1.27 PH, BLOOD (BEAKER) (test xxxs=1740) 7.40 BASIC METABOLIC [id number] 05:37:00 Test Item Value Reference Range Comments SODIUM (BEAKER) (test 136 meq/L 136-145 bfwj=663) POTASSIUM (BEAKER) (test 3.9 meq/L 3.5-5.1 ejzs=198) CHLORIDE (BEAKER) (test 106 meq/L 98-107 cmri=633) CO2 (BEAKER) (test 21 meq/L 22-29 dnyv=109) BLOOD UREA NITROGEN 3 mg/dL 7-21 (BEAKER) (test slsg=801) CREATININE (BEAKER) (test 0.44 mg/dL 0.57-1.25 uarg=224) GLUCOSE RANDOM (BEAKER) 96 mg/dL 70-105 (test llju=507) CALCIUM (BEAKER) (test 7.9 mg/dL 8.4-10.2 aewi=764) EGFR (BEAKER) (test 146 mL/min/1.73 sq m ESTIMATED GFR IS NOT cppp=0761) ACCURATE CREATININE CLEARANCE IN PREDICTING GLOMERULAR FILTRATION RATE. ESTIMATED GFR IS NOT APPLICABLE FOR DIALYSIS PATIENTS. [id number] 05:34:00 Test Item Value Reference Range Comments PHOSPHORUS (BEAKER) (test mhrc=285) 2.4 mg/dL 2.3-4.7 [id number] 05:34:00 Test Item Value Reference Range Comments MAGNESIUM (BEAKER) (test jsmk=519) 1.9 mg/dL 1.6-2.6 [id number] 05:07:00 Test Item Value Reference Range Comments PREALBUMIN (BEAKER) (test iuoe=878) 10 mg/dL 14-45 POCT-GLUCOSE [id number] 23:01:00 Test Item Value Reference Range Comments POC-GLUCOSE METER (BEAKER) 109 mg/dL 70-110 TESTED AT [address] (test zdcu=5331) [facility] [address] POCT-GLUCOSE [id number] 16:57:00 Test Item Value Reference Range Comments POC-GLUCOSE METER (BEAKER) 131 mg/dL 70-110 TESTED AT [address] (test djli=7852) [facility] [address] POCT-GLUCOSE [id number] 13:09:00 Test Item Value Reference Range Comments POC-GLUCOSE METER (BEAKER) 97 mg/dL 70-110 TESTED AT [address] (test lwug=8695) [place] [id number] URINE [id number] 12:37:00 Test Item Value Reference Range Comments CULTURE (BEAKER) (test 50-59,000 col/mL Maryanne waav=8252) glabrata POCT-GLUCOSE [id number] 09:37:00 Test Item Value Reference Range Comments POC-GLUCOSE METER (BEAKER) 121 mg/dL 70-110 TESTED AT [address] (test qccc=0972) [place] [address] [id number] 08:22:00 Test Item Value Reference Range Comments PHOSPHORUS (BEAKER) (test mnkm=232) 3.0 mg/dL 2.3-4.7 [id number] 08:22:00 Test Item Value Reference Range Comments MAGNESIUM (BEAKER) (test syok=953) 1.5 mg/dL 1.6-2.6 BASIC METABOLIC [id number] 08:22:00 Test Item Value Reference Range Comments SODIUM (BEAKER) (test 135 meq/L 136-145 zchh=931) POTASSIUM (BEAKER) (test 3.2 meq/L 3.5-5.1 tspv=507) CHLORIDE (BEAKER) (test 101 meq/L 98-107 xdnx=388) CO2 (BEAKER) (test 22 meq/L 22-29 vlpl=416) BLOOD UREA NITROGEN 5 mg/dL 7-21 (BEAKER) (test dmqi=038) CREATININE (BEAKER) (test 0.47 mg/dL 0.57-1.25 wgax=021) GLUCOSE RANDOM (BEAKER) 93 mg/dL 70-105 (test naok=045) CALCIUM (BEAKER) (test 8.1 mg/dL 8.4-10.2 jbcp=645) EGFR (BEAKER) (test 136 mL/min/1.73 sq m ESTIMATED GFR IS NOT tmbq=7415) ACCURATE CREATININE CLEARANCE IN PREDICTING GLOMERULAR FILTRATION RATE. ESTIMATED GFR IS NOT APPLICABLE FOR DIALYSIS PATIENTS. CALCIUM, [id number] 07:15:00 Test Item Value Reference Range Comments CALCIUM IONIZED (BEAKER) (test rugw=527) 0.95 mmol/L 1.12-1.27 PH, BLOOD (BEAKER) (test tvzd=7837) 7.46 POCT-GLUCOSE [id number] 00:35:00 Test Item Value Reference Range Comments POC-GLUCOSE METER (BEAKER) 106 mg/dL 70-110 TESTED AT [address] (test ckge=1654) [facility] [address] POCT-GLUCOSE [id number] 16:38:00 Test Item Value Reference Range Comments POC-GLUCOSE METER (BEAKER) 89 mg/dL 70-110 TESTED AT [address] (test bduf=9213) [place] [id number] POCT-GLUCOSE [id number] 12:30:00 Test Item Value Reference Range Comments POC-GLUCOSE METER (BEAKER) 110 mg/dL 70-110 TESTED AT [address] (test muoc=6759) [facility] [address] POCT-GLUCOSE [id number] 08:50:00 Test Item Value Reference Range Comments POC-GLUCOSE METER (BEAKER) 125 mg/dL 70-110 TESTED AT [address] (test zoeq=4841) [facility] [address] CALCIUM, [id number] 07:29:00 Test Item Value Reference Range Comments CALCIUM IONIZED (BEAKER) (test dvuj=675) 1.08 mmol/L 1.12-1.27 PH, BLOOD (BEAKER) (test yieo=0457) 7.46 [id number] 06:49:00 Test Item Value Reference Range Comments TRIGLYCERIDES (BEAKER) (test ddkf=508) 265 mg/dL TRIGLYCERIDE REFERENCE RANGELow Risk <150Borderline Risk 150-199High Risk 200-499Very High Risk>=[id number] 06:49:00 Test Item Value Reference Range Comments MAGNESIUM (BEAKER) (test pjps=952) 1.8 mg/dL 1.6-2.6 [id number] 06:49:00 Test Item Value Reference Range Comments PHOSPHORUS (BEAKER) (test tlpr=380) 3.4 mg/dL 2.3-4.7 BASIC METABOLIC [id number] 06:49:00 Test Item Value Reference Range Comments SODIUM (BEAKER) (test 137 meq/L 136-145 bxzw=707) POTASSIUM (BEAKER) (test 3.5 meq/L 3.5-5.1 hmeg=904) CHLORIDE (BEAKER) (test 100 meq/L 98-107 bngr=742) CO2 (BEAKER) (test 25 meq/L 22-29 dbwh=086) BLOOD UREA NITROGEN 6 mg/dL 7-21 (BEAKER) (test qsxx=112) CREATININE (BEAKER) (test 0.50 mg/dL 0.57-1.25 vbsz=282) GLUCOSE RANDOM (BEAKER) 78 mg/dL 70-105 (test rrjk=012) CALCIUM (BEAKER) (test 8.5 mg/dL 8.4-10.2 tmfg=243) EGFR (BEAKER) (test 126 mL/min/1.73 sq m ESTIMATED GFR IS NOT zpvw=6384) ACCURATE CREATININE CLEARANCE IN PREDICTING GLOMERULAR FILTRATION RATE. ESTIMATED GFR IS NOT APPLICABLE FOR DIALYSIS PATIENTS. CBC (HEMOGRAM ONLY)2017-12-07 06:14:00 Test Item Value Reference Range Comments WHITE BLOOD CELL COUNT (BEAKER) (test yris=955) 5.8 K/ L 3.5-10.5 RED BLOOD CELL COUNT (BEAKER) (test awdj=654) 2.76 M/ L 3.93-5.22 HEMOGLOBIN (BEAKER) (test dfwl=603) 8.2 GM/DL 11.2-15.7 HEMATOCRIT (BEAKER) (test mnyh=152) 25.9 % 34.1-44.9 MEAN CORPUSCULAR VOLUME (BEAKER) (test slth=092) 93.8 fL 79.4-94.8 MEAN CORPUSCULAR HEMOGLOBIN (BEAKER) (test 29.7 pg 25.6-32.2 xsrk=611) MEAN CORPUSCULAR HEMOGLOBIN CONC (BEAKER) (test 31.7 GM/DL 32.2-35.5 vchg=810) RED CELL DISTRIBUTION WIDTH (BEAKER) (test 13.7 % 11.7-14.4 iswq=014) PLATELET COUNT (BEAKER) (test kcqv=045) 194 K/CU MM 150-450 MEAN PLATELET VOLUME (BEAKER) (test ljpg=892) 10.4 fL 9.4-12.3 NUCLEATED RED BLOOD CELLS (BEAKER) (test 0 /100 WBC 0-0 kbsu=364) CT, [id number] 03:50:00FINAL REPORT EXAM: CT of the abdomen and pelvis, with contrast CLINICAL HISTORY: History of intra- abdominal abscesses. Evaluate for resolution of abscesses versus new abscesses. TECHNIQUE: CT of the abdomen and pelvis was performed with intravenous contrast administration. Thisexam was performed according to our departmental dose optimization program which includes automated exposure control, adjustment of the mA and/or kV according to patient's size and/or use of iterative reconstructive technique. COMPARISON: CT abdomen and pelvis 11/28/2017 FINDINGS : LOWER CHEST: Emphysematous changes. Minimal bibasilar discoid atelectasis and/ or linear scarring.LIVER: Subcentimeter hypodensity in the right hepatic lobe too small to characterize. Small cyst in the medial segment of theleft hepatic lobe. Right hepatic calcified granuloma.BILE DUCTS: Within normal limits.GALL BLADDER: Within normal limits.PANCREAS: Within normal limits.SPLEEN: Calcified splenic granulomata.ADRENALS: Within normal limits.KIDNEYS/URETERS: Stable right lower pole renal cyst. Subcentimeter hypodensities in the left kidney too small to characterize. No hydronephrosis or radiopaque stones. URINARY BLADDER: Within normal limits.REPRODUCTIVE ORGANS: Status post hysterectomy. BOWEL/ MESENTERY: Left lower quadrant colostomy. Multiple small and large bowel anastomoses are seen. Dilatation of multiple small bowel loops with air-fluid levels, which likely represents an ileus. Diffuse mesenteric congestion. No bowel obstruction or abnormal wall thickening. Nonvisualization of the appendix. PERITONEUM/RETROPERITONEUM: Pigtail catheter in the anterior right lower quadrant. Trace abdominal and pelvic free fluid.Small pockets of peripheral enhancing fluid compatible with residual abscesses in the posterior pelvis measuring 2.7 x 1.8 x 1.4 cm (coronal image 47 and axial image 55-59) and another measuring 2.2 x 1.6 x 1.6 cm (coronal image 42 and axial image 52). Interval decrease in free intraperitoneal air with residual foci of air in the anterior abdomen and pelvis VESSELS: Calcific atherosclerosis. LYMPH NODES: Multiple subcentimeter retroperitoneal lymph nodes, nonspecific.SOFT TISSUES: Midline abdominal wound. Left lower quadrant colostomy. Right lower quadrant drainage catheter.BONES: No suspicious osseous lesions. Generalized osteopenia. IMPRESSION: Drainage catheter in the right anterior right lowerquadrant.Small residual abscesses in the posterior pelvis measuring 2.7 cm and 2.2 cm respectively.Small bowel ileus.Interval decrease in amount of free intraperitoneal air. Signed: Doug Ramirez MDReport Verified Date/Time: 2017 03:50:42 Reading Location: [address] Reading Room POCT- GLUCOSE [id number] 00:53:00 Test Item Value Reference Range Comments POC-GLUCOSE METER (BEAKER) 93 mg/dL 70-110 TESTED AT [address] (test ikpm=9651) [place] [id number] POCT-GLUCOSE [id number] 17:27:00 Test Item Value Reference Range Comments POC-GLUCOSE METER (BEAKER) 110 mg/dL 70-110 TESTED AT [address] (test sqnu=9672) [facility] [address] POCT-GLUCOSE [id number] 13:07:00 Test Item Value Reference Range Comments POC-GLUCOSE METER (BEAKER) 102 mg/dL 70-110 TESTED AT [address] (test uyqw=2933) [facility] [address] CALCIUM, [id number] 07:35:00 Test Item Value Reference Range Comments CALCIUM IONIZED (BEAKER) (test ihsu=808) 1.11 mmol/L 1.12-1.27 PH, BLOOD (BEAKER) (test kwzj=7911) 7.46 [id number] 06:20:00 Test Item Value Reference Range Comments PHOSPHORUS (BEAKER) (test pqcc=470) 4.2 mg/dL 2.3-4.7 [id number] 06:20:00 Test Item Value Reference Range Comments MAGNESIUM (BEAKER) (test qwhf=958) 1.5 mg/dL 1.6-2.6 BASIC METABOLIC [id number] 06:20:00 Test Item Value Reference Range Comments SODIUM (BEAKER) (test 131 meq/L 136-145 zcrd=673) POTASSIUM (BEAKER) (test 4.5 meq/L 3.5-5.1 rfuu=546) CHLORIDE (BEAKER) (test 98 meq/L 98-107 brdx=952) CO2 (BEAKER) (test 25 meq/L 22-29 lbyg=643) BLOOD UREA NITROGEN 10 mg/dL 7-21 (BEAKER) (test icmt=993) CREATININE (BEAKER) (test 0.51 mg/dL 0.57-1.25 qxjc=151) GLUCOSE RANDOM (BEAKER) 97 mg/dL 70-105 (test zhcj=954) CALCIUM (BEAKER) (test 8.6 mg/dL 8.4-10.2 airh=558) EGFR (BEAKER) (test 123 mL/min/1.73 sq m ESTIMATED GFR IS NOT zqhe=7216) ACCURATE CREATININE CLEARANCE IN PREDICTING GLOMERULAR FILTRATION RATE. ESTIMATED GFR IS NOT APPLICABLE FOR DIALYSIS PATIENTS. POCT-GLUCOSE [id number] 06:16:00 Test Item Value Reference Range Comments POC-GLUCOSE METER (BEAKER) 107 mg/dL 70-[address] [facility] [address] [facility] (test xbbc=1829) [facility] [address] CBC (HEMOGRAM ONLY)2017-12-06 06:15:00 Test Item Value Reference Range Comments WHITE BLOOD CELL COUNT (BEAKER) (test mdhy=953) 9.5 K/ L 3.5-10.5 RED BLOOD CELL COUNT (BEAKER) (test rrbd=353) 2.75 M/ L 3.93-5.22 HEMOGLOBIN (BEAKER) (test zbar=487) 8.1 GM/DL 11.2-15.7 HEMATOCRIT (BEAKER) (test bytl=628) 25.9 % 34.1-44.9 MEAN CORPUSCULAR VOLUME (BEAKER) (test lrqu=514) 94.2 fL 79.4-94.8 MEAN CORPUSCULAR HEMOGLOBIN (BEAKER) (test 29.5 pg 25.6-32.2 hykf=794) MEAN CORPUSCULAR HEMOGLOBIN CONC (BEAKER) (test 31.3 GM/DL 32.2-35.5 jtxs=674) RED CELL DISTRIBUTION WIDTH (BEAKER) (test 13.9 % 11.7-14.4 auqf=012) PLATELET COUNT (BEAKER) (test qufz=948) 164 K/CU MM 150-450 MEAN PLATELET VOLUME (BEAKER) (test fedy=489) 10.7 fL 9.4-12.3 NUCLEATED RED BLOOD CELLS (BEAKER) (test 0 /100 WBC 0-0 menn=737) POCT-GLUCOSE [id number] 23:31:00 Test Item Value Reference Range Comments POC-GLUCOSE METER (BEAKER) 124 mg/dL 70-110 TESTED AT [address] (test gniv=1419) [facility] [address] POCT-GLUCOSE [id number] 17:52:00 Test Item Value Reference Range Comments POC-GLUCOSE METER (BEAKER) 131 mg/dL 70-110 TESTED AT [address] (test ekyf=0760) [facility] [address] POCT-GLUCOSE [id number] 12:59:00 Test Item Value Reference Range Comments POC-GLUCOSE METER (BEAKER) 161 mg/dL 70-110 TESTED AT [address] (test gkff=1918) [place] [id number] 05:39:00 Test Item Value Reference Range Comments PHOSPHORUS (BEAKER) (test sxxv=057) 4.4 mg/dL 2.3-4.7 [id number] 05:39:00 Test Item Value Reference Range Comments MAGNESIUM (BEAKER) (test assn=130) 1.7 mg/dL 1.6-2.6 BASIC METABOLIC [id number] 05:39:00 Test Item Value Reference Range Comments SODIUM (BEAKER) (test 133 meq/L 136-145 dxzj=947) POTASSIUM (BEAKER) (test 4.3 meq/L 3.5-5.1 nvkm=578) CHLORIDE (BEAKER) (test 99 meq/L 98-107 elft=690) CO2 (BEAKER) (test 26 meq/L 22-29 rckl=287) BLOOD UREA NITROGEN 12 mg/dL 7-21 (BEAKER) (test uqfk=572) CREATININE (BEAKER) (test 0.48 mg/dL 0.57-1.25 ndrt=152) GLUCOSE RANDOM (BEAKER) 107 mg/dL 70-105 (test zmcu=146) CALCIUM (BEAKER) (test 9.3 mg/dL 8.4-10.2 ryyf=765) EGFR (BEAKER) (test 132 mL/min/1.73 sq m ESTIMATED GFR IS NOT ttcn=2488) ACCURATE CREATININE CLEARANCE IN PREDICTING GLOMERULAR FILTRATION RATE. ESTIMATED GFR IS NOT APPLICABLE FOR DIALYSIS PATIENTS. POCT-GLUCOSE [id number] 05:32:00 Test Item Value Reference Range Comments POC-GLUCOSE METER (BEAKER) 139 mg/dL 70-[address] [facility] [address] [facility] (test rbby=5631) [facility] [address] CALCIUM, [id number] 05:16:00 Test Item Value Reference Range Comments CALCIUM IONIZED (BEAKER) (test egot=976) 1.18 mmol/L 1.12-1.27 PH, BLOOD (BEAKER) (test ckqw=4061) 7.43 CBC (HEMOGRAM ONLY)2017-12-05 05:02:00 Test Item Value Reference Range Comments WHITE BLOOD CELL COUNT (BEAKER) (test vbhc=566) 7.8 K/ L 3.5-10.5 RED BLOOD CELL COUNT (BEAKER) (test qdyp=610) 3.01 M/ L 3.93-5.22 HEMOGLOBIN (BEAKER) (test zhul=781) 8.8 GM/DL 11.2-15.7 HEMATOCRIT (BEAKER) (test fnlu=757) 28.3 % 34.1-44.9 MEAN CORPUSCULAR VOLUME (BEAKER) (test lumf=766) 94.0 fL 79.4-94.8 MEAN CORPUSCULAR HEMOGLOBIN (BEAKER) (test 29.2 pg 25.6-32.2 arpi=390) MEAN CORPUSCULAR HEMOGLOBIN CONC (BEAKER) (test 31.1 GM/DL 32.2-35.5 mava=731) RED CELL DISTRIBUTION WIDTH (BEAKER) (test 14.0 % 11.7-14.4 jmzw=501) PLATELET COUNT (BEAKER) (test hqwl=347) 160 K/CU MM 150-450 MEAN PLATELET VOLUME (BEAKER) (test plci=595) 10.7 fL 9.4-12.3 NUCLEATED RED BLOOD CELLS (BEAKER) (test 0 /100 WBC 0-0 osqp=187) POCT-GLUCOSE [id number] 23:00:00 Test Item Value Reference Range Comments POC-GLUCOSE METER (BEAKER) 145 mg/dL 70-[address] [facility] [address] [facility] (test nmff=1259) [facility] [address] POCT-GLUCOSE [id number] 17:41:00 Test Item Value Reference Range Comments POC-GLUCOSE METER (BEAKER) 128 mg/dL 70-[address] [facility] [address] [facility] (test lufp=1402) [facility] [address] URINALYSIS W/ [id number] 16:27:00 Test Item Value Reference Range Comments COLOR (BEAKER) (test vrfw=660) Yellow CLARITY (BEAKER) (test elyx=094) Clear SPECIFIC GRAVITY UA (BEAKER) (test 1.008 1.001-1.035 ufya=782) PH UA (BEAKER) (test yinl=490) 6.0 5.0-8.0 PROTEIN UA (BEAKER) (test qdqj=172) Negative Negative GLUCOSE UA (BEAKER) (test hndr=124) Negative Negative KETONES UA (BEAKER) (test czit=640) Negative Negative BILIRUBIN UA (BEAKER) (test bkrs=024) Negative Negative BLOOD UA (BEAKER) (test roid=834) Negative Negative NITRITE UA (BEAKER) (test odgt=990) Negative Negative LEUKOCYTE ESTERASE UA (BEAKER) (test Negative Negative xsgl=955) UROBILINOGEN UA (BEAKER) (test atme=913) 0.2 mg/dL 0.2-1.0 RBC UA (BEAKER) (test pyhl=132) < /HPF WBC UA (BEAKER) (test ejyk=543) 2 /HPF SOURCE(BEAKER) (test szxw=1623) Urine, Clean Catch CBC (HEMOGRAM ONLY)2017-12-04 13:13:00 Test Item Value Reference Range Comments WHITE BLOOD CELL COUNT (BEAKER) (test iezs=460) 7.4 K/ L 3.5-10.5 RED BLOOD CELL COUNT (BEAKER) (test amhx=630) 2.81 M/ L 3.93-5.22 HEMOGLOBIN (BEAKER) (test ivyz=739) 8.1 GM/DL 11.2-15.7 HEMATOCRIT (BEAKER) (test bjjj=970) 26.2 % 34.1-44.9 MEAN CORPUSCULAR VOLUME (BEAKER) (test tjcj=393) 93.2 fL 79.4-94.8 MEAN CORPUSCULAR HEMOGLOBIN (BEAKER) (test 28.8 pg 25.6-32.2 vbya=747) MEAN CORPUSCULAR HEMOGLOBIN CONC (BEAKER) (test 30.9 GM/DL 32.2-35.5 rvur=355) RED CELL DISTRIBUTION WIDTH (BEAKER) (test 14.2 % 11.7-14.4 txai=110) PLATELET COUNT (BEAKER) (test jvgc=840) 142 K/CU MM 150-450 MEAN PLATELET VOLUME (BEAKER) (test lion=920) 11.0 fL 9.4-12.3 NUCLEATED RED BLOOD CELLS (BEAKER) (test 0 /100 WBC 0-0 yltv=524) POCT-GLUCOSE [id number] 13:06:00 Test Item Value Reference Range Comments POC-GLUCOSE METER ([facility]) 162 mg/dL 70-110 TESTED AT [address] (test gitw=4975) [facility] [address] CALCIUM, [id number] 06:59:00 Test Item Value Reference Range Comments CALCIUM IONIZED (BEAKER) (test ftny=070) 1.06 mmol/L 1.12-1.27 PH, BLOOD (AKER) (test jgnm=2892) 7.45 POCT-GLUCOSE [id number] 06:20:00 Test Item Value Reference Range Comments POC-GLUCOSE METER (BEAKER) 148 mg/dL 70-110 TESTED AT [address] (test ebif=9494) [facility] [address] [id number] 05:22:00 Test Item Value Reference Range Comments PHOSPHORUS (BEAKER) (test vtgf=273) 4.1 mg/dL 2.3-4.7 [id number] 05:22:00 Test Item Value Reference Range Comments MAGNESIUM (BEAKER) (test uinj=207) 1.5 mg/dL 1.6-2.6 BASIC METABOLIC [id number] 05:22:00 Test Item Value Reference Range Comments SODIUM (BEAKER) (test 132 meq/L 136-145 ljrr=899) POTASSIUM (BEAKER) (test 4.3 meq/L 3.5-5.1 mftv=401) CHLORIDE (BEAKER) (test 100 meq/L 98-107 iwli=930) CO2 (BEAKER) (test 25 meq/L 22-29 sgnb=668) BLOOD UREA NITROGEN 14 mg/dL 7-21 (BEAKER) (test vqhb=656) CREATININE (BEAKER) (test 0.46 mg/dL 0.57-1.25 eyiu=992) GLUCOSE RANDOM (BEAKER) 124 mg/dL 70-105 (test ywzy=047) CALCIUM (BEAKER) (test 9.0 mg/dL 8.4-10.2 ralm=077) EGFR (BEAKER) (test 139 mL/min/1.73 sq m ESTIMATED GFR IS NOT prdt=4616) ACCURATE CREATININE CLEARANCE IN PREDICTING GLOMERULAR FILTRATION RATE. ESTIMATED GFR IS NOT APPLICABLE FOR DIALYSIS PATIENTS. POCT-GLUCOSE [id number] 00:05:00 Test Item Value Reference Range Comments POC-GLUCOSE METER (BEAKER) 153 mg/dL 70-110 TESTED AT [address] (test nhfk=7829) [facility] [address] POCT-GLUCOSE [id number] 17:48:00 Test Item Value Reference Range Comments POC-GLUCOSE METER (BEAKER) 85 mg/dL 70-110 TESTED AT [address] (test alte=7929) [facility] [address] POCT-GLUCOSE [id number] 12:27:00 Test Item Value Reference Range Comments POC-GLUCOSE METER (BEAKER) 163 mg/dL 70-110 TESTED AT [address] (test wxoq=2428) [facility] [address] CALCIUM, [id number] 06:23:00 Test Item Value Reference Range Comments CALCIUM IONIZED (BEAKER) (test avkg=363) 1.16 mmol/L 1.12-1.27 PH, BLOOD (BEAKER) (test fmbk=6898) 7.35 POCT-GLUCOSE [id number] 05:48:00 Test Item Value Reference Range Comments POC-GLUCOSE METER (BEAKER) 121 mg/dL 70-110 TESTED AT [address] (test yaia=4662) [facility] [address] [id number] 04:21:00 Test Item Value Reference Range Comments PHOSPHORUS (BEAKER) (test ljkd=892) 4.0 mg/dL 2.3-4.7 [id number] 04:21:00 Test Item Value Reference Range Comments MAGNESIUM (BEAKER) (test kfsl=114) 1.9 mg/dL 1.6-2.6 BASIC METABOLIC [id number] 04:21:00 Test Item Value Reference Range Comments SODIUM (BEAKER) (test 136 meq/L 136-145 mqhn=392) POTASSIUM (BEAKER) (test 4.4 meq/L 3.5-5.1 mtos=506) CHLORIDE (BEAKER) (test 104 meq/L 98-107 xaoi=775) CO2 (BEAKER) (test 27 meq/L 22-29 rxru=553) BLOOD UREA NITROGEN 16 mg/dL 7-21 (BEAKER) (test aycn=947) CREATININE (BEAKER) (test 0.46 mg/dL 0.57-1.25 dupt=366) GLUCOSE RANDOM (BEAKER) 94 mg/dL 70-105 (test cdju=562) CALCIUM (BEAKER) (test 8.8 mg/dL 8.4-10.2 khue=929) EGFR (BEAKER) (test 139 mL/min/1.73 sq m ESTIMATED GFR IS NOT rmcf=1583) ACCURATE CREATININE CLEARANCE IN PREDICTING GLOMERULAR FILTRATION RATE. ESTIMATED GFR IS NOT APPLICABLE FOR DIALYSIS PATIENTS. POCT-GLUCOSE [id number] 23:26:00 Test Item Value Reference Range Comments POC-GLUCOSE METER (BEAKER) 149 mg/dL 70-110 TESTED AT [address] (test tfdz=9098) [place] [address] POCT-GLUCOSE [id number] 18:05:00 Test Item Value Reference Range Comments POC-GLUCOSE METER (BEAKER) 153 mg/dL 70-110 TESTED AT [address] (test yfsf=7802) [place] [id number] POCT-GLUCOSE [id number] 12:29:00 Test Item Value Reference Range Comments POC-GLUCOSE METER (BEAKER) 146 mg/dL 70-110 TESTED AT [address] (test juxf=6233) [place] [address] [id number] 07:57:00 Test Item Value Reference Range Comments PHOSPHORUS (BEAKER) (test veut=680) 3.5 mg/dL 2.3-4.7 [id number] 07:57:00 Test Item Value Reference Range Comments MAGNESIUM (BEAKER) (test iyme=838) 1.8 mg/dL 1.6-2.6 BASIC METABOLIC [id number] 07:57:00 Test Item Value Reference Range Comments SODIUM (BEAKER) (test 135 meq/L 136-145 qdqv=541) POTASSIUM (BEAKER) (test 4.2 meq/L 3.5-5.1 evtf=049) CHLORIDE (BEAKER) (test 102 meq/L 98-107 cwzu=584) CO2 (BEAKER) (test 25 meq/L 22-29 hhmr=263) BLOOD UREA NITROGEN 18 mg/dL 7-21 (BEAKER) (test fbqz=577) CREATININE (BEAKER) (test 0.44 mg/dL 0.57-1.25 zpgf=100) GLUCOSE RANDOM (BEAKER) 111 mg/dL 70-105 (test fzhp=731) CALCIUM (BEAKER) (test 8.7 mg/dL 8.4-10.2 zjsg=183) EGFR (BEAKER) (test 146 mL/min/1.73 sq m ESTIMATED GFR IS NOT xgye=4240) ACCURATE CREATININE CLEARANCE IN PREDICTING GLOMERULAR FILTRATION RATE. ESTIMATED GFR IS NOT APPLICABLE FOR DIALYSIS PATIENTS. [id number] 06:58:00 Test Item Value Reference Range Comments PREALBUMIN (BEAKER) (test mabi=097) 18 mg/dL 14-45 CALCIUM, [id number] 06:30:00 Test Item Value Reference Range Comments CALCIUM IONIZED (BEAKER) (test wlhv=350) 1.11 mmol/L 1.12-1.27 PH, BLOOD (BEAKER) (test nump=0985) 7.36 POCT-GLUCOSE [id number] 05:52:00 Test Item Value Reference Range Comments POC-GLUCOSE METER (BEAKER) 131 mg/dL 70-110 TESTED AT [address] (test fflf=2692) [facility] [address] POCT-GLUCOSE [id number] 00:36:00 Test Item Value Reference Range Comments POC-GLUCOSE METER (BEAKER) 121 mg/dL 70-110 TESTED AT [address] (test tuoq=4984) [facility] [address] POCT-GLUCOSE [id number] 17:52:00 Test Item Value Reference Range Comments POC-GLUCOSE METER (BEAKER) 150 mg/dL 70-[address] [facility] [address] [facility] (test pgix=1867) [facility] [address] POCT-GLUCOSE [id number] 12:17:00 Test Item Value Reference Range Comments POC-GLUCOSE METER (BEAKER) 138 mg/dL 70-[address] [facility] [address] [facility] (test ubzo=9448) [facility] [address] [id number] 07:15:00 Test Item Value Reference Range Comments PHOSPHORUS (BEAKER) (test ekgr=767) 3.8 mg/dL 2.3-4.7 [id number] 07:15:00 Test Item Value Reference Range Comments MAGNESIUM (BEAKER) (test xtuu=059) 1.8 mg/dL 1.6-2.6 BASIC METABOLIC [id number] 07:15:00 Test Item Value Reference Range Comments SODIUM (BEAKER) (test 136 meq/L 136-145 umpb=463) POTASSIUM (BEAKER) (test 4.1 meq/L 3.5-5.1 fmbe=422) CHLORIDE (BEAKER) (test 105 meq/L 98-107 wlaj=606) CO2 (BEAKER) (test 25 meq/L 22-29 fdbs=143) BLOOD UREA NITROGEN 18 mg/dL 7-21 (BEAKER) (test hgwo=534) CREATININE (BEAKER) (test 0.47 mg/dL 0.57-1.25 yvrn=937) GLUCOSE RANDOM (BEAKER) 101 mg/dL 70-105 (test jdnu=158) CALCIUM (BEAKER) (test 8.7 mg/dL 8.4-10.2 klyq=570) EGFR (BEAKER) (test 136 mL/min/1.73 sq m ESTIMATED GFR IS NOT ahzv=6947) ACCURATE CREATININE CLEARANCE IN PREDICTING GLOMERULAR FILTRATION RATE. ESTIMATED GFR IS NOT APPLICABLE FOR DIALYSIS PATIENTS. CALCIUM, [id number] 06:52:00 Test Item Value Reference Range Comments CALCIUM IONIZED (BEAKER) (test gewy=770) 1.20 mmol/L 1.12-1.27 PH, BLOOD (BEAKER) (test ecch=3946) 7.35 POCT-GLUCOSE [id number] 05:27:00 Test Item Value Reference Range Comments POC-GLUCOSE METER (BEAKER) 139 mg/dL 70-110 TESTED AT [address] (test cnle=9757) [facility] [address] POCT-GLUCOSE [id number] 23:45:00 Test Item Value Reference Range Comments POC-GLUCOSE METER (BEAKER) 147 mg/dL 70-110 TESTED AT [address] (test yycd=2473) [facility] [address] POCT-GLUCOSE [id number] 18:19:00 Test Item Value Reference Range Comments POC-GLUCOSE METER (BEAKER) 145 mg/dL 70-110 TESTED AT [address] (test dsjs=1287) [facility] [address] POCT-GLUCOSE [id number] 12:30:00 Test Item Value Reference Range Comments POC-GLUCOSE METER (BEAKER) 149 mg/dL 70-110 TESTED AT [address] (test bawx=3264) [facility] [address] CALCIUM, [id number] 05:40:00 Test Item Value Reference Range Comments CALCIUM IONIZED (BEAKER) (test hews=668) 1.17 mmol/L 1.12-1.27 PH, BLOOD (BEAKER) (test lyqq=7439) 7.39 POCT-GLUCOSE [id number] 05:16:00 Test Item Value Reference Range Comments POC-GLUCOSE METER (BEAKER) 164 mg/dL 70-110 TESTED AT [address] (test rhiz=8119) [facility] [address] [id number] 04:31:00 Test Item Value Reference Range Comments TRIGLYCERIDES (BEAKER) (test wlqb=265) 187 mg/dL TRIGLYCERIDE REFERENCE RANGELow Risk <150Borderline Risk 150-199High Risk 200-499Very High Risk>=[id number] 04:31:00 Test Item Value Reference Range Comments MAGNESIUM (BEAKER) (test likq=425) 1.7 mg/dL 1.6-2.6 [id number] 04:31:00 Test Item Value Reference Range Comments PHOSPHORUS (BEAKER) (test ezum=032) 3.9 mg/dL 2.3-4.7 BASIC METABOLIC [id number] 04:31:00 Test Item Value Reference Range Comments SODIUM (BEAKER) (test 136 meq/L 136-145 rmnn=884) POTASSIUM (BEAKER) (test 4.1 meq/L 3.5-5.1 lcmp=387) CHLORIDE (BEAKER) (test 106 meq/L 98-107 beco=836) CO2 (BEAKER) (test 23 meq/L 22-29 nflq=149) BLOOD UREA NITROGEN 21 mg/dL 7-21 (BEAKER) (test yrmx=040) CREATININE (BEAKER) (test 0.49 mg/dL 0.57-1.25 dlhn=689) GLUCOSE RANDOM (BEAKER) 108 mg/dL 70-105 (test qmfx=005) CALCIUM (BEAKER) (test 8.6 mg/dL 8.4-10.2 hfng=577) EGFR (BEAKER) (test 129 mL/min/1.73 sq m ESTIMATED GFR IS NOT bsdi=8130) ACCURATE CREATININE CLEARANCE IN PREDICTING GLOMERULAR FILTRATION RATE. ESTIMATED GFR IS NOT APPLICABLE FOR DIALYSIS PATIENTS. CBC (HEMOGRAM ONLY)2017-11-30 04:08:00 Test Item Value Reference Range Comments WHITE BLOOD CELL COUNT (BEAKER) (test ugmt=444) 4.9 K/ L 3.5-10.5 RED BLOOD CELL COUNT (BEAKER) (test elol=240) 2.81 M/ L 3.93-5.22 HEMOGLOBIN (BEAKER) (test bvjg=123) 8.3 GM/DL 11.2-15.7 HEMATOCRIT (BEAKER) (test rcul=577) 26.9 % 34.1-44.9 MEAN CORPUSCULAR VOLUME (BEAKER) (test umos=205) 95.7 fL 79.4-94.8 MEAN CORPUSCULAR HEMOGLOBIN (BEAKER) (test 29.5 pg 25.6-32.2 awpm=149) MEAN CORPUSCULAR HEMOGLOBIN CONC (BEAKER) (test 30.9 GM/DL 32.2-35.5 sucz=315) RED CELL DISTRIBUTION WIDTH (BEAKER) (test 14.7 % 11.7-14.4 fowd=019) PLATELET COUNT (BEAKER) (test huod=359) 151 K/CU MM 150-450 MEAN PLATELET VOLUME (BEAKER) (test jeuy=512) 11.3 fL 9.4-12.3 NUCLEATED RED BLOOD CELLS (BEAKER) (test 0 /100 WBC 0-0 istz=912) POCT-GLUCOSE [id number] 23:11:00 Test Item Value Reference Range Comments POC-GLUCOSE METER (BEAKER) 136 mg/dL 70-110 TESTED AT [address] (test twfj=3615) [facility] [address] URINALYSIS W/ REFLEX URINE [id number] 17:19:00 Test Item Value Reference Range Comments COLOR (BEAKER) (test pgpn=606) Yellow CLARITY (BEAKER) (test brtz=910) Clear SPECIFIC GRAVITY UA (BEAKER) (test bbsd=635) 1.015 1.001-1.035 PH UA (BEAKER) (test dcaw=530) 5.5 5.0-8.0 PROTEIN UA (BEAKER) (test rkqs=884) 20 mg/dL Negative GLUCOSE UA (BEAKER) (test fadz=323) Negative Negative KETONES UA (BEAKER) (test kwep=485) Negative Negative BILIRUBIN UA (BEAKER) (test kjnl=168) Negative Negative BLOOD UA (BEAKER) (test nwph=278) Negative Negative NITRITE UA (BEAKER) (test gczv=184) Negative Negative LEUKOCYTE ESTERASE UA (BEAKER) (test frfq=747) Negative Negative UROBILINOGEN UA (BEAKER) (test lxjf=319) 0.2 mg/dL 0.2-1.0 RBC UA (BEAKER) (test bcit=704) < /HPF WBC UA (BEAKER) (test vbvi=576) 1 /HPF BACTERIA (BEAKER) (test icrw=605) Occasional MUCUS (BEAKER) (test etti=1545) Rare SOURCE(BEAKER) (test qsiz=0629) POCT-GLUCOSE [id number] 17:03:00 Test Item Value Reference Range Comments POC-GLUCOSE METER (BEAKER) 213 mg/dL 70-110 TESTED AT [address] (test topf=6573) [facility] [address] POCT-GLUCOSE [id number] 13:24:00 Test Item Value Reference Range Comments POC-GLUCOSE METER (BEAKER) 127 mg/dL 70-110 TESTED AT [address] (test teef=7700) [facility] [address] POCT-GLUCOSE [id number] 06:03:00 Test Item Value Reference Range Comments POC-GLUCOSE METER (BEAKER) 95 mg/dL 70-[address] [facility] [address] (test nqtv=4807) [place] [address] CALCIUM, [id number] 05:01:00 Test Item Value Reference Range Comments CALCIUM IONIZED (BEAKER) (test vatv=811) 1.17 mmol/L 1.12-1.27 PH, BLOOD (BEAKER) (test tcpv=2247) 7.37 [id number] 04:51:00 Test Item Value Reference Range Comments PHOSPHORUS (BEAKER) (test qwxb=068) 3.9 mg/dL 2.3-4.7 [id number] 04:51:00 Test Item Value Reference Range Comments MAGNESIUM (BEAKER) (test rerp=793) 2.0 mg/dL 1.6-2.6 BASIC METABOLIC [id number] 04:51:00 Test Item Value Reference Range Comments SODIUM (BEAKER) (test 136 meq/L 136-145 fjhx=957) POTASSIUM (BEAKER) (test 4.6 meq/L 3.5-5.1 srio=769) CHLORIDE (BEAKER) (test 105 meq/L 98-107 wzgc=250) CO2 (BEAKER) (test 23 meq/L 22-29 zsij=593) BLOOD UREA NITROGEN 22 mg/dL 7-21 (BEAKER) (test vywy=769) CREATININE (BEAKER) (test 0.51 mg/dL 0.57-1.25 vavi=568) GLUCOSE RANDOM (BEAKER) 137 mg/dL 70-105 (test ytxl=942) CALCIUM (BEAKER) (test 8.8 mg/dL 8.4-10.2 vdfy=785) EGFR (BEAKER) (test 123 mL/min/1.73 sq m ESTIMATED GFR IS NOT hqet=1016) ACCURATE CREATININE CLEARANCE IN PREDICTING GLOMERULAR FILTRATION RATE. ESTIMATED GFR IS NOT APPLICABLE FOR DIALYSIS PATIENTS. PROTHROMBIN [id number] 04:43:00 Test Item Value Reference Range Comments PROTIME (BEAKER) (test rjgv=124) 15.0 seconds 11.7-14.7 INR (BEAKER) (test uesa=948) 1.2 <=5.9 RECOMMENDED COUMADIN/WARFARIN INR THERAPY RANGESSTANDARD DOSE: 2.0 - 3.0 Includes: PROPHYLAXIS forvenous thrombosis, systemic embolization; TREATMENT for venous thrombosis and/or pulmonary embolus.HIGH RISK: Target INR is 2.5-3.5 for patients with mechanical heart valves.CBC W/PLT COUNT & AUTO [id number] 04:34:00 Test Item Value Reference Range Comments WHITE BLOOD CELL COUNT (BEAKER) (test zpcu=971) 5.2 K/ L 3.5-10.5 RED BLOOD CELL COUNT (BEAKER) (test pfou=796) 2.88 M/ L 3.93-5.22 HEMOGLOBIN (BEAKER) (test rvzt=442) 8.7 GM/DL 11.2-15.7 HEMATOCRIT (BEAKER) (test cqng=253) 28.0 % 34.1-44.9 MEAN CORPUSCULAR VOLUME (BEAKER) (test pnod=414) 97.2 fL 79.4-94.8 MEAN CORPUSCULAR HEMOGLOBIN (BEAKER) (test 30.2 pg 25.6-32.2 lgzi=046) MEAN CORPUSCULAR HEMOGLOBIN CONC (BEAKER) (test 31.1 GM/DL 32.2-35.5 ueep=598) RED CELL DISTRIBUTION WIDTH (BEAKER) (test 14.8 % 11.7-14.4 shmi=911) PLATELET COUNT (BEAKER) (test rtep=972) 154 K/CU MM 150-450 MEAN PLATELET VOLUME (BEAKER) (test tena=889) 11.2 fL 9.4-12.3 NUCLEATED RED BLOOD CELLS (BEAKER) (test 0 /100 WBC 0-0 lhtm=499) NEUTROPHILS RELATIVE PERCENT (BEAKER) (test 64 % yqhl=689) LYMPHOCYTES RELATIVE PERCENT (BEAKER) (test 28 % rtqk=046) MONOCYTES RELATIVE PERCENT (BEAKER) (test 6 % zjqm=454) EOSINOPHILS RELATIVE PERCENT (BEAKER) (test 1 % xume=197) BASOPHILS RELATIVE PERCENT (BEAKER) (test 0 % yiwg=610) NEUTROPHILS ABSOLUTE COUNT (BEAKER) (test 3.36 K/ L 1.56-6.13 nccl=186) LYMPHOCYTES ABSOLUTE COUNT (BEAKER) (test 1.45 K/ L 1.18-3.74 tkzr=430) MONOCYTES ABSOLUTE COUNT (BEAKER) (test 0.33 K/ L 0.24-0.36 pipg=046) EOSINOPHILS ABSOLUTE COUNT (BEAKER) (test 0.05 K/ L 0.04-0.36 vqar=707) BASOPHILS ABSOLUTE COUNT (BEAKER) (test 0.02 K/ L 0.01-0.08 ntzf=344) IMMATURE GRANULOCYTES-RELATIVE PERCENT (BEAKER) 0 % 0-1 (test guci=1487) POCT-GLUCOSE [id number] 23:04:00 Test Item Value Reference Range Comments POC-GLUCOSE METER (BEAKER) 153 mg/dL 70-[address] [facility] [address] [facility] (test rpux=4553) [facility] [address] POCT-GLUCOSE [id number] 18:13:00 Test Item Value Reference Range Comments POC-GLUCOSE METER (BEAKER) 141 mg/dL 70-110 TESTED AT [address] (test yhgz=7203) [facility] [address] CT, [id number] 16:02:00Please use PO contrastFINAL REPORT CT scan of the abdomen and pelvis. MEDICAL HISTORY: Worsening pain, evaluate for drain placement, no anastomotic leaks. COMPARISON STUDY: CT guided drainage dated November 17, [address] scan of the abdomen and pelvis dated November 15, 2017. TECHNIQUE: Contiguous helical slices were acquired through the abdomen and pelvis posted ministration of oral and intravenous contrast. This exam was performed according to our department dose optimization program which includesautomated exposure control, adjustment of the mA and/or kV according to the patient's size and/or use of iterative reconstruction technique. FINDINGS: Atelectasis or fibrosis is seen in the lung bases.Emphysematous changes are present. The liver demonstrates a low- attenuation lesion in the left lobe,likely a cyst. Other tiny low-attenuation lesions are seen. Multiple calcified granulomas are seen in the spleen. The pancreas and adrenal glands are unremarkable. There are bilateral renal cysts measuring up to 4.5 x 4.2 cm the lower pole of the right kidney as well as tiny low-attenuation lesions, too small to characterize. No dilated loops of bowel are seen to suggest obstruction. A pigtail catheter seen in the right anterior abdomen with resolution of the previously seen fluid collection. A drainage catheter is also seen in the pelvis. There is a colostomy in the left lower quadrant and open wound anteriorly. Areas of significant free intraperitoneal air are seen. Diffuse mesenteric stranding is identified. The aorta is normal in caliber. Atherosclerosis is seen. There is no definite suspicious adenopathy. The uterus is absent. Bone windows demonstrate no focal abnormality. IMPRESSION:1. Emphysematous changes in the lung bases with areas of atelectasis or fibrosis.2. Low-attenuation renal and hepatic lesions, most likely cysts.3. Significant amount of intraperitoneal air. The patient is known to have anastomotic leaks. Some of the air may also be echogenic from the patient's catheters. Perforated viscus cannot be excluded.4. Other findings as described above. No drainable collection seen. Signed: Magdi Rolon MDReport Verified Date/Time: 11/28/2017 16:02:25 Reading Location: [facility] [id number] Ortho Consult Reading Room Electronically signed by: MAGDI ROLON M.D. on 08/2018 04:02 PMPOCT-GLUCOSE [id number] 12:56:00 Test Item Value Reference Range Comments POC-GLUCOSE METER (BEAKER) 282 mg/dL 70-110 TESTED AT [address] (test tkfx=7502) [facility] [address] FUNGUS CULTURE + [id number] 11:42:00 Test Item Value Reference Range Comments CULTURE (BEAKER) (test 4+ Same organism has been gyph=3382) isolated from culture(s) of the same body site and collection date. 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 [address] [place] [address] (test cdrx=3068) [facility] [address] CALCIUM, [id number] 05:04:00 Test Item Value Reference Range Comments CALCIUM IONIZED (BEAKER) (test bkby=633) 1.09 mmol/L 1.12-1.27 PH, BLOOD (BEAKER) (test hjdo=1756) 7.40 [id number] 04:52:00 Test Item Value Reference Range Comments PHOSPHORUS (BEAKER) (test slrd=284) 3.9 mg/dL 2.3-4.7 [id number] 04:52:00 Test Item Value Reference Range Comments MAGNESIUM (BEAKER) (test jrxw=673) 1.9 mg/dL 1.6-2.6 BASIC METABOLIC [id number] 04:52:00 Test Item Value Reference Range Comments SODIUM (BEAKER) (test 135 meq/L 136-145 ssdx=759) POTASSIUM (BEAKER) (test 4.7 meq/L 3.5-5.1 zuqh=329) CHLORIDE (BEAKER) (test 106 meq/L 98-107 wkgi=663) CO2 (BEAKER) (test 20 meq/L 22-29 sper=974) BLOOD UREA NITROGEN 22 mg/dL 7-21 (BEAKER) (test ujqp=414) CREATININE (BEAKER) (test 0.51 mg/dL 0.57-1.25 kasv=582) GLUCOSE RANDOM (BEAKER) 154 mg/dL 70-105 (test zomx=952) CALCIUM (BEAKER) (test 8.7 mg/dL 8.4-10.2 dmiv=736) EGFR (BEAKER) (test 123 mL/min/1.73 sq m ESTIMATED GFR IS NOT enax=6738) ACCURATE CREATININE CLEARANCE IN PREDICTING GLOMERULAR FILTRATION RATE. ESTIMATED GFR IS NOT APPLICABLE FOR DIALYSIS PATIENTS. PROTHROMBIN [id number] 03:58:00 Test Item Value Reference Range Comments PROTIME (BEAKER) (test lzvq=351) 15.3 seconds 11.7-14.7 INR (BEAKER) (test uwtd=657) 1.2 <=5.9 RECOMMENDED COUMADIN/WARFARIN INR THERAPY RANGESSTANDARD DOSE: 2.0 - 3.0 Includes: PROPHYLAXIS forvenous thrombosis, systemic embolization; TREATMENT for venous thrombosis and/or pulmonary embolus.HIGH RISK: Target INR is 2.5-3.5 for patients with mechanical heart valves.CBC W/PLT COUNT & AUTO [id number] 03:45:00 Test Item Value Reference Range Comments WHITE BLOOD CELL COUNT (BEAKER) (test wqpr=129) 5.4 K/ L 3.5-10.5 RED BLOOD CELL COUNT (BEAKER) (test sjtc=666) 2.93 M/ L 3.93-5.22 HEMOGLOBIN (BEAKER) (test hfwc=647) 8.7 GM/DL 11.2-15.7 HEMATOCRIT (BEAKER) (test vlwd=378) 28.1 % 34.1-44.9 MEAN CORPUSCULAR VOLUME (BEAKER) (test dzrk=080) 95.9 fL 79.4-94.8 MEAN CORPUSCULAR HEMOGLOBIN (BEAKER) (test 29.7 pg 25.6-32.2 pmyn=140) MEAN CORPUSCULAR HEMOGLOBIN CONC (BEAKER) (test 31.0 GM/DL 32.2-35.5 omfp=013) RED CELL DISTRIBUTION WIDTH (BEAKER) (test 14.7 % 11.7-14.4 mfye=802) PLATELET COUNT (BEAKER) (test zkat=654) 165 K/CU MM 150-450 MEAN PLATELET VOLUME (BEAKER) (test aesk=817) 11.5 fL 9.4-12.3 NUCLEATED RED BLOOD CELLS (BEAKER) (test 0 /100 WBC 0-0 fpbw=354) NEUTROPHILS RELATIVE PERCENT (BEAKER) (test 71 % aqly=320) LYMPHOCYTES RELATIVE PERCENT (BEAKER) (test 19 % wivc=106) MONOCYTES RELATIVE PERCENT (BEAKER) (test 7 % oblv=837) EOSINOPHILS RELATIVE PERCENT (BEAKER) (test 1 % qztx=649) BASOPHILS RELATIVE PERCENT (BEAKER) (test 1 % zqyt=160) NEUTROPHILS ABSOLUTE COUNT (BEAKER) (test 3.85 K/ L 1.56-6.13 bewl=532) LYMPHOCYTES ABSOLUTE COUNT (BEAKER) (test 1.05 K/ L 1.18-3.74 ldyn=871) MONOCYTES ABSOLUTE COUNT (BEAKER) (test 0.40 K/ L 0.24-0.36 eeor=129) EOSINOPHILS ABSOLUTE COUNT (BEAKER) (test 0.05 K/ L 0.04-0.36 nekw=759) BASOPHILS ABSOLUTE COUNT (BEAKER) (test 0.03 K/ L 0.01-0.08 cqnh=949) IMMATURE GRANULOCYTES-RELATIVE PERCENT (BEAKER) 0 % 0-1 (test pcgx=4231) POCT-GLUCOSE [id number] 23:07:00 Test Item Value Reference Range Comments POC-GLUCOSE METER (BEAKER) 139 mg/dL 70-110 TESTED AT [place] [id number] [facility] (test rwfi=7149) [facility] [address] POCT-GLUCOSE [id number] 17:14:00 Test Item Value Reference Range Comments POC-GLUCOSE METER (BEAKER) 146 mg/dL 70-110 TESTED AT [place] [id number] [facility] (test pthw=8730) [facility] [address] POCT-GLUCOSE [id number] 11:55:00 Test Item Value Reference Range Comments POC-GLUCOSE METER (BEAKER) 172 mg/dL 70-110 TESTED AT [address] (test eaop=7003) [facility] [address] CALCIUM, [id number] 08:29:00 Test Item Value Reference Range Comments CALCIUM IONIZED (BEAKER) (test dlls=687) 1.14 mmol/L 1.12-1.27 PH, BLOOD (BEAKER) (test qkca=7721) 7.33 [id number] 06:29:00 Test Item Value Reference Range Comments PHOSPHORUS (BEAKER) (test uhdv=805) 4.2 mg/dL 2.3-4.7 [id number] 06:29:00 Test Item Value Reference Range Comments MAGNESIUM (BEAKER) (test jjvs=561) 1.9 mg/dL 1.6-2.6 BASIC METABOLIC [id number] 06:29:00 Test Item Value Reference Range Comments SODIUM (BEAKER) (test 136 meq/L 136-145 chbp=813) POTASSIUM (BEAKER) (test 4.6 meq/L 3.5-5.1 onpb=214) CHLORIDE (BEAKER) (test 105 meq/L 98-107 tjgx=971) CO2 (BEAKER) (test 25 meq/L 22-29 phlr=272) BLOOD UREA NITROGEN 23 mg/dL 7-21 (BEAKER) (test urdz=004) CREATININE (BEAKER) (test 0.54 mg/dL 0.57-1.25 ziru=016) GLUCOSE RANDOM (BEAKER) 176 mg/dL 70-105 (test btnf=411) CALCIUM (BEAKER) (test 8.6 mg/dL 8.4-10.2 zauw=226) EGFR (BEAKER) (test 116 mL/min/1.73 sq m ESTIMATED GFR IS NOT kngw=9200) ACCURATE CREATININE CLEARANCE IN PREDICTING GLOMERULAR FILTRATION RATE. ESTIMATED GFR IS NOT APPLICABLE FOR DIALYSIS PATIENTS. PROTHROMBIN [id number] 06:13:00 Test Item Value Reference Range Comments PROTIME (BEAKER) (test lrwc=151) 16.0 seconds 11.7-14.7 INR (BEAKER) (test ntzj=470) 1.3 <=5.9 RECOMMENDED COUMADIN/WARFARIN INR THERAPY RANGESSTANDARD DOSE: 2.0 - 3.0 Includes: PROPHYLAXIS forvenous thrombosis, systemic embolization; TREATMENT for venous thrombosis and/or pulmonary embolus.HIGH RISK: Target INR is 2.5-3.5 for patients with mechanical heart valves.CBC W/PLT COUNT & AUTO [id number] 05:59:00 Test Item Value Reference Range Comments WHITE BLOOD CELL COUNT (BEAKER) (test ihoq=530) 5.7 K/ L 3.5-10.5 RED BLOOD CELL COUNT (BEAKER) (test nkae=288) 3.01 M/ L 3.93-5.22 HEMOGLOBIN (BEAKER) (test jqho=768) 9.0 GM/DL 11.2-15.7 HEMATOCRIT (BEAKER) (test yvbu=267) 29.0 % 34.1-44.9 MEAN CORPUSCULAR VOLUME (BEAKER) (test kavr=805) 96.3 fL 79.4-94.8 MEAN CORPUSCULAR HEMOGLOBIN (BEAKER) (test 29.9 pg 25.6-32.2 cdma=531) MEAN CORPUSCULAR HEMOGLOBIN CONC (BEAKER) (test 31.0 GM/DL 32.2-35.5 cpvl=602) RED CELL DISTRIBUTION WIDTH (BEAKER) (test 14.9 % 11.7-14.4 diov=128) PLATELET COUNT (BEAKER) (test jvyz=512) 187 K/CU MM 150-450 MEAN PLATELET VOLUME (BEAKER) (test wymq=710) 11.4 fL 9.4-12.3 NUCLEATED RED BLOOD CELLS (BEAKER) (test 0 /100 WBC 0-0 kdwb=534) NEUTROPHILS RELATIVE PERCENT (BEAKER) (test 72 % qjul=171) LYMPHOCYTES RELATIVE PERCENT (BEAKER) (test 18 % uqed=531) MONOCYTES RELATIVE PERCENT (BEAKER) (test 8 % tgkw=241) EOSINOPHILS RELATIVE PERCENT (BEAKER) (test 1 % aqdf=810) BASOPHILS RELATIVE PERCENT (BEAKER) (test 1 % amzl=533) NEUTROPHILS ABSOLUTE COUNT (BEAKER) (test 4.12 K/ L 1.56-6.13 bgyz=506) LYMPHOCYTES ABSOLUTE COUNT (BEAKER) (test 1.03 K/ L 1.18-3.74 eqib=417) MONOCYTES ABSOLUTE COUNT (BEAKER) (test 0.43 K/ L 0.24-0.36 xfha=217) EOSINOPHILS ABSOLUTE COUNT (BEAKER) (test 0.06 K/ L 0.04-0.36 aksi=365) BASOPHILS ABSOLUTE COUNT (BEAKER) (test 0.03 K/ L 0.01-0.08 vbpx=571) IMMATURE GRANULOCYTES-RELATIVE PERCENT (BEAKER) 1 % 0-1 (test elno=1010) POCT-GLUCOSE [id number] 05:54:00 Test Item Value Reference Range Comments POC-GLUCOSE METER (BEAKER) 187 mg/dL 70-110 TESTED AT [address] (test chux=7917) [place] [id number] POCT-GLUCOSE [id number] 23:25:00 Test Item Value Reference Range Comments POC-GLUCOSE METER (BEAKER) 159 mg/dL 70-110 TESTED AT [address] (test dhhn=3419) [place] [id number] POCT-GLUCOSE [id number] 17:20:00 Test Item Value Reference Range Comments POC-GLUCOSE METER (BEAKER) 105 mg/dL 70-110 TESTED AT [address] (test xykl=3141) [facility] [address] POCT-GLUCOSE [id number] 12:46:00 Test Item Value Reference Range Comments POC-GLUCOSE METER (BEAKER) 170 mg/dL 70-110 TESTED AT [address] (test quxn=7396) [facility] [address] CALCIUM, [id number] 07:00:00 Test Item Value Reference Range Comments CALCIUM IONIZED (BEAKER) (test hcyx=285) 1.06 mmol/L 1.12-1.27 PH, BLOOD (BEAKER) (test kohj=8830) 7.37 [id number] 06:42:00 Test Item Value Reference Range Comments PHOSPHORUS (BEAKER) (test krsv=207) 3.7 mg/dL 2.3-4.7 [id number] 06:42:00 Test Item Value Reference Range Comments MAGNESIUM (BEAKER) (test frld=021) 2.0 mg/dL 1.6-2.6 BASIC METABOLIC [id number] 06:42:00 Test Item Value Reference Range Comments SODIUM (BEAKER) (test 135 meq/L 136-145 retd=231) POTASSIUM (BEAKER) (test 4.5 meq/L 3.5-5.1 hvpx=878) CHLORIDE (BEAKER) (test 104 meq/L 98-107 dxtp=046) CO2 (BEAKER) (test 26 meq/L 22-29 evnm=261) BLOOD UREA NITROGEN 22 mg/dL 7-21 (BEAKER) (test vusi=057) CREATININE (BEAKER) (test 0.54 mg/dL 0.57-1.25 llfc=695) GLUCOSE RANDOM (BEAKER) 187 mg/dL 70-105 (test nnlk=687) CALCIUM (BEAKER) (test 8.6 mg/dL 8.4-10.2 nftr=600) EGFR (BEAKER) (test 116 mL/min/1.73 sq m ESTIMATED GFR IS NOT entc=9209) ACCURATE CREATININE CLEARANCE IN PREDICTING GLOMERULAR FILTRATION RATE. ESTIMATED GFR IS NOT APPLICABLE FOR DIALYSIS PATIENTS. PROTHROMBIN [id number] 06:41:00 Test Item Value Reference Range Comments PROTIME (BEAKER) (test xdna=466) 15.0 seconds 11.7-14.7 INR (BEAKER) (test oppo=001) 1.2 <=5.9 RECOMMENDED COUMADIN/WARFARIN INR THERAPY RANGESSTANDARD DOSE: 2.0 - 3.0 Includes: PROPHYLAXIS forvenous thrombosis, systemic embolization; TREATMENT for venous thrombosis and/or pulmonary embolus.HIGH RISK: Target INR is 2.5-3.5 for patients with mechanical heart valves.CBC W/PLT COUNT & AUTO [id number] 06:29:00 Test Item Value Reference Range Comments WHITE BLOOD CELL COUNT (BEAKER) (test frgq=068) 5.5 K/ L 3.5-10.5 RED BLOOD CELL COUNT (BEAKER) (test lpmg=981) 2.91 M/ L 3.93-5.22 HEMOGLOBIN (BEAKER) (test yurj=282) 8.9 GM/DL 11.2-15.7 HEMATOCRIT (BEAKER) (test ggfo=291) 28.1 % 34.1-44.9 MEAN CORPUSCULAR VOLUME (BEAKER) (test fzay=639) 96.6 fL 79.4-94.8 MEAN CORPUSCULAR HEMOGLOBIN (BEAKER) (test 30.6 pg 25.6-32.2 icrk=723) MEAN CORPUSCULAR HEMOGLOBIN CONC (BEAKER) (test 31.7 GM/DL 32.2-35.5 aend=221) RED CELL DISTRIBUTION WIDTH (BEAKER) (test 14.7 % 11.7-14.4 alpm=005) PLATELET COUNT (BEAKER) (test vjzp=319) 207 K/CU MM 150-450 MEAN PLATELET VOLUME (BEAKER) (test dpfi=389) 10.9 fL 9.4-12.3 NUCLEATED RED BLOOD CELLS (BEAKER) (test 0 /100 WBC 0-0 ptrc=608) NEUTROPHILS RELATIVE PERCENT (BEAKER) (test 70 % uuxh=458) LYMPHOCYTES RELATIVE PERCENT (BEAKER) (test 21 % qdkx=299) MONOCYTES RELATIVE PERCENT (BEAKER) (test 8 % tsfo=487) EOSINOPHILS RELATIVE PERCENT (BEAKER) (test 1 % yssq=180) BASOPHILS RELATIVE PERCENT (BEAKER) (test 0 % cslh=484) NEUTROPHILS ABSOLUTE COUNT (BEAKER) (test 3.86 K/ L 1.56-6.13 namd=452) LYMPHOCYTES ABSOLUTE COUNT (BEAKER) (test 1.13 K/ L 1.18-3.74 dnem=411) MONOCYTES ABSOLUTE COUNT (BEAKER) (test 0.44 K/ L 0.24-0.36 euxx=728) EOSINOPHILS ABSOLUTE COUNT (BEAKER) (test 0.04 K/ L 0.04-0.36 ezrd=633) BASOPHILS ABSOLUTE COUNT (BEAKER) (test 0.01 K/ L 0.01-0.08 cvjd=768) IMMATURE GRANULOCYTES-RELATIVE PERCENT (BEAKER) 0 % 0-1 (test qfza=5188) POCT-GLUCOSE [id number] 05:54:00 Test Item Value Reference Range Comments POC-GLUCOSE METER (BEAKER) 204 mg/dL 70-[address] [facility] [address] [facility] (test lekh=7869) [facility] [address] POCT-GLUCOSE [id number] 23:53:00 Test Item Value Reference Range Comments POC-GLUCOSE METER (BEAKER) 157 mg/dL 70-[address] [facility] [address] [facility] (test qcak=0108) [facility] [address] POCT-GLUCOSE [id number] 16:59:00 Test Item Value Reference Range Comments POC-GLUCOSE METER (BEAKER) 190 mg/dL 70-110 TESTED AT [address] (test cjdx=6237) [facility] [address] POCT-GLUCOSE [id number] 13:21:00 Test Item Value Reference Range Comments POC-GLUCOSE METER (BEAKER) 166 mg/dL 70-110 TESTED AT [address] (test nxjm=0739) [facility] [address] [id number] 07:07:00 Test Item Value Reference Range Comments PHOSPHORUS (BEAKER) (test qiwe=553) 3.5 mg/dL 2.3-4.7 [id number] 07:07:00 Test Item Value Reference Range Comments MAGNESIUM (BEAKER) (test tngd=989) 1.9 mg/dL 1.6-2.6 BASIC METABOLIC [id number] 07:07:00 Test Item Value Reference Range Comments SODIUM (BEAKER) (test 136 meq/L 136-145 fjjg=538) POTASSIUM (BEAKER) (test 4.4 meq/L 3.5-5.1 scvd=159) CHLORIDE (BEAKER) (test 103 meq/L 98-107 wooa=707) CO2 (BEAKER) (test 28 meq/L 22-29 wgjq=573) BLOOD UREA NITROGEN 22 mg/dL 7-21 (BEAKER) (test yida=786) CREATININE (BEAKER) (test 0.51 mg/dL 0.57-1.25 asni=010) GLUCOSE RANDOM (BEAKER) 163 mg/dL 70-105 (test cnis=465) CALCIUM (BEAKER) (test 8.6 mg/dL 8.4-10.2 zgko=541) EGFR (BEAKER) (test 123 mL/min/1.73 sq m ESTIMATED GFR IS NOT rbgg=9566) ACCURATE CREATININE CLEARANCE IN PREDICTING GLOMERULAR FILTRATION RATE. ESTIMATED GFR IS NOT APPLICABLE FOR DIALYSIS PATIENTS. CALCIUM, [id number] 06:57:00 Test Item Value Reference Range Comments CALCIUM IONIZED (BEAKER) (test aeuf=678) 1.17 mmol/L 1.12-1.27 PH, BLOOD (BEAKER) (test mtfh=0433) 7.37 PROTHROMBIN [id number] 06:42:00 Test Item Value Reference Range Comments PROTIME (BEAKER) (test gawe=360) 15.7 seconds 11.7-14.7 INR (BEAKER) (test swwm=889) 1.3 <=5.9 RECOMMENDED COUMADIN/WARFARIN INR THERAPY RANGESSTANDARD DOSE: 2.0 - 3.0 Includes: PROPHYLAXIS forvenous thrombosis, systemic embolization; TREATMENT for venous thrombosis and/or pulmonary embolus.HIGH RISK: Target INR is 2.5-3.5 for patients with mechanical heart valves.CBC W/PLT COUNT & AUTO [id number] 06:42:00 Test Item Value Reference Range Comments WHITE BLOOD CELL COUNT (BEAKER) (test xsmk=504) 6.0 K/ L 3.5-10.5 RED BLOOD CELL COUNT (BEAKER) (test coep=527) 3.02 M/ L 3.93-5.22 HEMOGLOBIN (BEAKER) (test euwe=136) 9.0 GM/DL 11.2-15.7 HEMATOCRIT (BEAKER) (test sguj=979) 29.0 % 34.1-44.9 MEAN CORPUSCULAR VOLUME (BEAKER) (test jvwj=945) 96.0 fL 79.4-94.8 MEAN CORPUSCULAR HEMOGLOBIN (BEAKER) (test 29.8 pg 25.6-32.2 wbet=401) MEAN CORPUSCULAR HEMOGLOBIN CONC (BEAKER) (test 31.0 GM/DL 32.2-35.5 nbwo=311) RED CELL DISTRIBUTION WIDTH (BEAKER) (test 14.7 % 11.7-14.4 xloz=929) PLATELET COUNT (BEAKER) (test obfy=922) 232 K/CU MM 150-450 MEAN PLATELET VOLUME (BEAKER) (test dsda=358) 10.7 fL 9.4-12.3 NUCLEATED RED BLOOD CELLS (BEAKER) (test 0 /100 WBC 0-0 bxjn=864) NEUTROPHILS RELATIVE PERCENT (BEAKER) (test 75 % zlie=130) LYMPHOCYTES RELATIVE PERCENT (BEAKER) (test 18 % xkfn=424) MONOCYTES RELATIVE PERCENT (BEAKER) (test 7 % ayus=696) EOSINOPHILS RELATIVE PERCENT (BEAKER) (test 0 % bove=202) BASOPHILS RELATIVE PERCENT (BEAKER) (test 0 % ymtd=790) NEUTROPHILS ABSOLUTE COUNT (BEAKER) (test 4.50 K/ L 1.56-6.13 zvxi=539) LYMPHOCYTES ABSOLUTE COUNT (BEAKER) (test 1.07 K/ L 1.18-3.74 iczk=073) MONOCYTES ABSOLUTE COUNT (BEAKER) (test 0.39 K/ L 0.24-0.36 eylb=598) EOSINOPHILS ABSOLUTE COUNT (BEAKER) (test 0.02 K/ L 0.04-0.36 dgjc=824) BASOPHILS ABSOLUTE COUNT (BEAKER) (test 0.02 K/ L 0.01-0.08 wguz=643) IMMATURE GRANULOCYTES-RELATIVE PERCENT (BEAKER) 1 % 0-1 (test abiy=0616) POCT-GLUCOSE [id number] 05:35:00 Test Item Value Reference Range Comments POC-GLUCOSE METER (BEAKER) 174 mg/dL 70-110 TESTED AT [address] (test onwy=2280) [place] [address] POCT-GLUCOSE [id number] 23:09:00 Test Item Value Reference Range Comments POC-GLUCOSE METER (BEAKER) 146 mg/dL 70-110 TESTED AT [address] (test kqrt=5090) [place] [address] POCT-GLUCOSE [id number] 18:00:00 Test Item Value Reference Range Comments POC-GLUCOSE METER (BEAKER) 100 mg/dL 70-110 TESTED AT [address] (test iuhx=5570) [place] [address] BODY FLUID CULTURE + GRAM [id number] 16:54:00 Test Item Value Reference Range Comments CULTURE (BEAKER) (test dmwa=1479) Amikacin (test code=1) Aztreonam (test code=32) Cefepime (test code=51) Ceftazidime (test code=27) Ciprofloxacin (test code=7) Doripenem (test upvw=707) Gentamicin (test code=18) Imipenem (test code=19) Levofloxacin (test code=22) Meropenem (test code=34) Piperacillin (test code=24) Piperacillin + Tazobactam (test code=29) Tobramycin (test code=25) CULTURE (BEAKER) (test 4+ Pseudomonas ojou=5588) aeruginosa (Mucoid-phenotype)mu coid colony type CULTURE (BEAKER) (test 4+ Pseudomonas jjiv=1167) aeruginosa (Mucoid-phenotype) GRAM STAIN RESULT <1+ WBCs (BEAKER) (test gars=6101) GRAM STAIN RESULT 1+ gram negative (BEAKER) (test rods pvqi=099290) GRAM STAIN RESULT 2+ yeast (BEAKER) (test zbzf=568916) CULTURE (BEAKER) (test MARYANNE PARAPSILOSIS 1+ Maryanne kulg=6777) parapsilosis 5-Flurocytosine (test raah=701) Caspofungin acetate (test bvtv=339) Fluconazole (test rdhd=626) Itraconazole (test zbdt=273) Micafungin (test yflp=353) Voriconazole (test yylp=863) Amphotericin B (test Susceptible >0-0 , upxx=012) No Interpretations Established <=0 or >0 Posaconazole (test Susceptible >0-0 , hdcd=184) No Interpretations Established <=0 or >0 GRAM STAIN RESULT 1+ gram negative (BEAKER) (test rods flfv=144862) GRAM STAIN RESULT 2+ yeast (BEAKER) (test hpzg=831450) POCT-GLUCOSE [id number] 13:32:00 Test Item Value Reference Range Comments POC-GLUCOSE METER (BEAKER) 191 mg/dL 70-110 TESTED AT [address] (test bamu=7828) [facility] [address] POCT-GLUCOSE [id number] 06:53:00 Test Item Value Reference Range Comments POC-GLUCOSE METER (BEAKER) 157 mg/dL 70-110 TESTED AT [address] (test fhja=5802) [facility] [address] CALCIUM, [id number] 05:32:00 Test Item Value Reference Range Comments CALCIUM IONIZED (BEAKER) (test ryqg=532) 1.09 mmol/L 1.12-1.27 PH, BLOOD (BEAKER) (test tqom=3794) 7.35 PROTHROMBIN TIME/[id number] 05:06:00 Test Item Value Reference Range Comments PROTIME (BEAKER) (test rven=434) 15.1 seconds 11.7-14.7 INR (BEAKER) (test pcpr=153) 1.2 <=5.9 RECOMMENDED COUMADIN/WARFARIN INR THERAPY RANGESSTANDARD DOSE: 2.0 - 3.0 Includes: PROPHYLAXIS forvenous thrombosis, systemic embolization; TREATMENT for venous thrombosis and/or pulmonary embolus.HIGH RISK: Target INR is 2.5-3.5 for patients with mechanical heart valves.[id number] 05:00:00 Test Item Value Reference Range Comments PHOSPHORUS (BEAKER) (test zqie=304) 3.5 mg/dL 2.3-4.7 [id number] 05:00:00 Test Item Value Reference Range Comments MAGNESIUM (BEAKER) (test llwi=370) 2.0 mg/dL 1.6-2.6 BASIC METABOLIC [id number] 05:00:00 Test Item Value Reference Range Comments SODIUM (BEAKER) (test 137 meq/L 136-145 tmah=293) POTASSIUM (BEAKER) (test 4.6 meq/L 3.5-5.1 qxxa=849) CHLORIDE (BEAKER) (test 104 meq/L 98-107 cbex=617) CO2 (BEAKER) (test 27 meq/L 22-29 uaka=603) BLOOD UREA NITROGEN 22 mg/dL 7-21 (BEAKER) (test heah=868) CREATININE (BEAKER) (test 0.51 mg/dL 0.57-1.25 jtvv=249) GLUCOSE RANDOM (BEAKER) 157 mg/dL 70-105 (test wltw=067) CALCIUM (BEAKER) (test 8.6 mg/dL 8.4-10.2 neef=402) EGFR (BEAKER) (test 123 mL/min/1.73 sq m ESTIMATED GFR IS NOT tkvu=8236) ACCURATE CREATININE CLEARANCE IN PREDICTING GLOMERULAR FILTRATION RATE. ESTIMATED GFR IS NOT APPLICABLE FOR DIALYSIS PATIENTS. CBC W/PLT COUNT & AUTO [id number] 04:37:00 Test Item Value Reference Range Comments WHITE BLOOD CELL COUNT (BEAKER) (test nwal=018) 6.7 K/ L 3.5-10.5 RED BLOOD CELL COUNT (BEAKER) (test fpnh=428) 2.80 M/ L 3.93-5.22 HEMOGLOBIN (BEAKER) (test frwn=963) 8.6 GM/DL 11.2-15.7 HEMATOCRIT (BEAKER) (test sdqi=154) 26.9 % 34.1-44.9 MEAN CORPUSCULAR VOLUME (BEAKER) (test booz=076) 96.1 fL 79.4-94.8 MEAN CORPUSCULAR HEMOGLOBIN (BEAKER) (test 30.7 pg 25.6-32.2 qpfm=199) MEAN CORPUSCULAR HEMOGLOBIN CONC (BEAKER) (test 32.0 GM/DL 32.2-35.5 nkiy=307) RED CELL DISTRIBUTION WIDTH (BEAKER) (test 14.5 % 11.7-14.4 ocvj=150) PLATELET COUNT (BEAKER) (test ntcz=982) 242 K/CU MM 150-450 MEAN PLATELET VOLUME (BEAKER) (test jddn=339) 10.3 fL 9.4-12.3 NUCLEATED RED BLOOD CELLS (BEAKER) (test 0 /100 WBC 0-0 twpv=524) NEUTROPHILS RELATIVE PERCENT (BEAKER) (test 78 % uygx=645) LYMPHOCYTES RELATIVE PERCENT (BEAKER) (test 14 % zqsr=462) MONOCYTES RELATIVE PERCENT (BEAKER) (test 8 % halz=147) EOSINOPHILS RELATIVE PERCENT (BEAKER) (test 0 % evmh=126) BASOPHILS RELATIVE PERCENT (BEAKER) (test 0 % jyyu=767) NEUTROPHILS ABSOLUTE COUNT (BEAKER) (test 5.17 K/ L 1.56-6.13 sqvh=737) LYMPHOCYTES ABSOLUTE COUNT (BEAKER) (test 0.90 K/ L 1.18-3.74 stax=372) MONOCYTES ABSOLUTE COUNT (BEAKER) (test 0.52 K/ L 0.24-0.36 pzum=301) EOSINOPHILS ABSOLUTE COUNT (BEAKER) (test 0.02 K/ L 0.04-0.36 tqim=417) BASOPHILS ABSOLUTE COUNT (BEAKER) (test 0.01 K/ L 0.01-0.08 cvex=743) IMMATURE GRANULOCYTES-RELATIVE PERCENT (BEAKER) 1 % 0-1 (test ypfe=4774) POCT-GLUCOSE [id number] 00:57:00 Test Item Value Reference Range Comments POC-GLUCOSE METER (BEAKER) 141 mg/dL 70-110 TESTED AT [address] (test ylcg=6169) [facility] [address] POCT-GLUCOSE [id number] 16:52:00 Test Item Value Reference Range Comments POC-GLUCOSE METER (BEAKER) 186 mg/dL 70-110 TESTED AT [address] (test fyrx=9291) [facility] [address] POCT-GLUCOSE [id number] 11:22:00 Test Item Value Reference Range Comments POC-GLUCOSE METER (BEAKER) 141 mg/dL 70-110 TESTED AT [address] (test fxmt=4454) [facility] [address] [id number] 06:45:00 Test Item Value Reference Range Comments TRIGLYCERIDES (BEAKER) (test uxgf=791) 193 mg/dL TRIGLYCERIDE REFERENCE RANGELow Risk <150Borderline Risk 150-199High Risk 200-499Very High Risk>=[id number] 06:45:00 Test Item Value Reference Range Comments MAGNESIUM (BEAKER) (test mabk=130) 1.9 mg/dL 1.6-2.6 [id number] 06:45:00 Test Item Value Reference Range Comments PHOSPHORUS (BEAKER) (test qgdp=196) 3.7 mg/dL 2.3-4.7 BASIC METABOLIC [id number] 06:45:00 Test Item Value Reference Range Comments SODIUM (BEAKER) (test 137 meq/L 136-145 tdgq=310) POTASSIUM (BEAKER) (test 4.7 meq/L 3.5-5.1 adfd=306) CHLORIDE (BEAKER) (test 104 meq/L 98-107 brco=548) CO2 (BEAKER) (test 27 meq/L 22-29 wdtp=407) BLOOD UREA NITROGEN 23 mg/dL 7-21 (BEAKER) (test dnay=210) CREATININE (BEAKER) (test 0.51 mg/dL 0.57-1.25 coaw=675) GLUCOSE RANDOM (BEAKER) 171 mg/dL 70-105 (test mhdo=324) CALCIUM (BEAKER) (test 8.4 mg/dL 8.4-10.2 bvsp=288) EGFR (BEAKER) (test 123 mL/min/1.73 sq m ESTIMATED GFR IS NOT cepm=5969) ACCURATE CREATININE CLEARANCE IN PREDICTING GLOMERULAR FILTRATION RATE. ESTIMATED GFR IS NOT APPLICABLE FOR DIALYSIS PATIENTS. CBC W/PLT COUNT & AUTO [id number] 06:14:00 Test Item Value Reference Range Comments WHITE BLOOD CELL COUNT (BEAKER) (test wjts=380) 7.6 K/ L 3.5-10.5 RED BLOOD CELL COUNT (BEAKER) (test vkvq=093) 2.82 M/ L 3.93-5.22 HEMOGLOBIN (BEAKER) (test xbom=770) 8.5 GM/DL 11.2-15.7 HEMATOCRIT (BEAKER) (test ighl=569) 27.3 % 34.1-44.9 MEAN CORPUSCULAR VOLUME (BEAKER) (test didz=851) 96.8 fL 79.4-94.8 MEAN CORPUSCULAR HEMOGLOBIN (BEAKER) (test 30.1 pg 25.6-32.2 afic=889) MEAN CORPUSCULAR HEMOGLOBIN CONC (BEAKER) (test 31.1 GM/DL 32.2-35.5 kzmi=783) RED CELL DISTRIBUTION WIDTH (BEAKER) (test 14.5 % 11.7-14.4 ibrr=656) PLATELET COUNT (BEAKER) (test uwnr=008) 282 K/CU MM 150-450 MEAN PLATELET VOLUME (BEAKER) (test mjyn=130) 10.5 fL 9.4-12.3 NUCLEATED RED BLOOD CELLS (BEAKER) (test 0 /100 WBC 0-0 vuxf=281) NEUTROPHILS RELATIVE PERCENT (BEAKER) (test 82 % upnm=896) LYMPHOCYTES RELATIVE PERCENT (BEAKER) (test 10 % xvnx=404) MONOCYTES RELATIVE PERCENT (BEAKER) (test 7 % wzow=047) EOSINOPHILS RELATIVE PERCENT (BEAKER) (test 0 % agve=160) BASOPHILS RELATIVE PERCENT (BEAKER) (test 0 % evaa=956) NEUTROPHILS ABSOLUTE COUNT (BEAKER) (test 6.24 K/ L 1.56-6.13 brsk=715) LYMPHOCYTES ABSOLUTE COUNT (BEAKER) (test 0.79 K/ L 1.18-3.74 azuj=821) MONOCYTES ABSOLUTE COUNT (BEAKER) (test 0.52 K/ L 0.24-0.36 dbih=424) EOSINOPHILS ABSOLUTE COUNT (BEAKER) (test 0.01 K/ L 0.04-0.36 duqm=832) BASOPHILS ABSOLUTE COUNT (BEAKER) (test 0.02 K/ L 0.01-0.08 gjsw=054) IMMATURE GRANULOCYTES-RELATIVE PERCENT (BEAKER) 0 % 0-1 (test arzl=7792) PROTHROMBIN [id number] 06:13:00 Test Item Value Reference Range Comments PROTIME (BEAKER) (test ives=175) 16.2 seconds 11.7-14.7 INR (BEAKER) (test fsuv=670) 1.3 <=5.9 RECOMMENDED COUMADIN/WARFARIN INR THERAPY RANGESSTANDARD DOSE: 2.0 - 3.0 Includes: PROPHYLAXIS forvenous thrombosis, systemic embolization; TREATMENT for venous thrombosis and/or pulmonary embolus.HIGH RISK: Target INR is 2.5-3.5 for patients with mechanical heart valves.POCT-GLUCOSE [id number] 05:59:00 Test Item Value Reference Range Comments POC-GLUCOSE METER (BEAKER) 180 mg/dL 70-110 TESTED AT [address] (test sisd=7007) [place] [id number] CALCIUM, [id number] 05:57:00 Test Item Value Reference Range Comments CALCIUM IONIZED (BEAKER) (test dyrn=493) 1.18 mmol/L 1.12-1.27 PH, BLOOD (BEAKER) (test axnw=9168) 7.38 POCT-GLUCOSE [id number] 22:36:00 Test Item Value Reference Range Comments POC-GLUCOSE METER (BEAKER) 119 mg/dL 70-110 TESTED AT [address] (test ivsx=4362) [facility] [address] POCT-GLUCOSE [id number] 16:57:00 Test Item Value Reference Range Comments POC-GLUCOSE METER (BEAKER) 141 mg/dL 70-110 TESTED AT [address] (test xunl=9383) [facility] [address] POCT-GLUCOSE [id number] 11:28:00 Test Item Value Reference Range Comments POC-GLUCOSE METER (BEAKER) 140 mg/dL 70-110 TESTED AT [address] (test dolx=0269) [facility] [address] POCT-GLUCOSE [id number] 07:47:00 Test Item Value Reference Range Comments POC-GLUCOSE METER (BEAKER) 141 mg/dL 70-[address] [facility] [address] [facility] (test qibf=4814) [facility] [address] POCT-GLUCOSE [id number] 06:10:00 Test Item Value Reference Range Comments POC-GLUCOSE METER (BEAKER) 222 mg/dL 70-[address] [facility] [address] [facility] (test fugi=5099) [facility] [address] [id number] 06:01:00 Test Item Value Reference Range Comments PHOSPHORUS (BEAKER) (test hbar=999) 3.3 mg/dL 2.3-4.7 [id number] 06:01:00 Test Item Value Reference Range Comments MAGNESIUM (BEAKER) (test timj=760) 2.1 mg/dL 1.6-2.6 BASIC METABOLIC [id number] 06:01:00 Test Item Value Reference Range Comments SODIUM (BEAKER) (test 136 meq/L 136-145 clql=669) POTASSIUM (BEAKER) (test 4.7 meq/L 3.5-5.1 ddpp=152) CHLORIDE (BEAKER) (test 103 meq/L 98-107 dnnp=434) CO2 (BEAKER) (test 26 meq/L 22-29 cptb=982) BLOOD UREA NITROGEN 23 mg/dL 7-21 (BEAKER) (test bhsa=159) CREATININE (BEAKER) (test 0.54 mg/dL 0.57-1.25 ztdw=050) GLUCOSE RANDOM (BEAKER) 199 mg/dL 70-105 (test dhqe=941) CALCIUM (BEAKER) (test 8.6 mg/dL 8.4-10.2 netj=682) EGFR (BEAKER) (test 116 mL/min/1.73 sq m ESTIMATED GFR IS NOT szwv=0538) ACCURATE CREATININE CLEARANCE IN PREDICTING GLOMERULAR FILTRATION RATE. ESTIMATED GFR IS NOT APPLICABLE FOR DIALYSIS PATIENTS. PROTHROMBIN [id number] 05:55:00 Test Item Value Reference Range Comments PROTIME (BEAKER) (test awio=353) 14.9 seconds 11.7-14.7 INR (BEAKER) (test epao=717) 1.2 <=5.9 RECOMMENDED COUMADIN/WARFARIN INR THERAPY RANGESSTANDARD DOSE: 2.0 - 3.0 Includes: PROPHYLAXIS forvenous thrombosis, systemic embolization; TREATMENT for venous thrombosis and/or pulmonary embolus.HIGH RISK: Target INR is 2.5-3.5 for patients with mechanical heart valves.CBC W/PLT COUNT & AUTO [id number] 05:45:00 Test Item Value Reference Range Comments WHITE BLOOD CELL COUNT (BEAKER) (test yhsl=330) 9.7 K/ L 3.5-10.5 RED BLOOD CELL COUNT (BEAKER) (test gjji=318) 3.05 M/ L 3.93-5.22 HEMOGLOBIN (BEAKER) (test npyi=235) 9.1 GM/DL 11.2-15.7 HEMATOCRIT (BEAKER) (test fhfn=407) 29.2 % 34.1-44.9 MEAN CORPUSCULAR VOLUME (BEAKER) (test auix=642) 95.7 fL 79.4-94.8 MEAN CORPUSCULAR HEMOGLOBIN (BEAKER) (test 29.8 pg 25.6-32.2 vgat=479) MEAN CORPUSCULAR HEMOGLOBIN CONC (BEAKER) (test 31.2 GM/DL 32.2-35.5 utiw=967) RED CELL DISTRIBUTION WIDTH (BEAKER) (test 14.4 % 11.7-14.4 hlmn=237) PLATELET COUNT (BEAKER) (test lwwc=014) 318 K/CU MM 150-450 MEAN PLATELET VOLUME (BEAKER) (test mvsu=115) 10.5 fL 9.4-12.3 NUCLEATED RED BLOOD CELLS (BEAKER) (test 0 /100 WBC 0-0 wnxc=133) NEUTROPHILS RELATIVE PERCENT (BEAKER) (test 85 % jsfa=333) LYMPHOCYTES RELATIVE PERCENT (BEAKER) (test 8 % jhjg=770) MONOCYTES RELATIVE PERCENT (BEAKER) (test 6 % ohxw=531) EOSINOPHILS RELATIVE PERCENT (BEAKER) (test 0 % qmqr=370) BASOPHILS RELATIVE PERCENT (BEAKER) (test 0 % dbcb=695) NEUTROPHILS ABSOLUTE COUNT (BEAKER) (test 8.22 K/ L 1.56-6.13 nxvb=764) LYMPHOCYTES ABSOLUTE COUNT (BEAKER) (test 0.81 K/ L 1.18-3.74 gkzl=791) MONOCYTES ABSOLUTE COUNT (BEAKER) (test 0.60 K/ L 0.24-0.36 sauc=146) EOSINOPHILS ABSOLUTE COUNT (BEAKER) (test 0.00 K/ L 0.04-0.36 mnec=625) BASOPHILS ABSOLUTE COUNT (BEAKER) (test 0.01 K/ L 0.01-0.08 wqmp=324) IMMATURE GRANULOCYTES-RELATIVE PERCENT (BEAKER) 0 % 0-1 (test rmdg=1703) CALCIUM, [id number] 05:33:00 Test Item Value Reference Range Comments CALCIUM IONIZED (BEAKER) (test sbbk=967) 1.10 mmol/L 1.12-1.27 PH, BLOOD (BEAKER) (test dtbw=9094) 7.43 ANAEROBIC [id number] 04:49:00 Test Item Value Reference Range Comments CULTURE (BEAKER) (test <1+ Lactobacillus rhamnosus ykqx=0527) NO Anaerobes IsolatedPOCT-GLUCOSE [id number] 23:46:00 Test Item Value Reference Range Comments POC-GLUCOSE METER (BEAKER) 134 mg/dL 70-110 TESTED AT [address] (test bjrj=7925) [place] [address] [id number] 19:05:00 Test Item Value Reference Range Comments POTASSIUM (BEAKER) (test cbxr=907) 5.4 meq/L 3.5-5.1 POCT-GLUCOSE [id number] 16:47:00 Test Item Value Reference Range Comments POC-GLUCOSE METER (BEAKER) 172 mg/dL 70-110 TESTED AT [address] (test zdae=2664) [place] [id number] POCT-GLUCOSE [id number] 12:08:00 Test Item Value Reference Range Comments POC-GLUCOSE METER (BEAKER) 173 mg/dL 70-110 TESTED AT [address] (test nrgd=4545) [place] [id number] CBC W/PLT COUNT & AUTO [id number] 05:19:00 Test Item Value Reference Range Comments WHITE BLOOD CELL COUNT (BEAKER) (test ypnh=627) 11.8 K/ L 3.5-10.5 RED BLOOD CELL COUNT (BEAKER) (test hjcy=369) 3.02 M/ L 3.93-5.22 HEMOGLOBIN (BEAKER) (test kjfw=632) 9.2 GM/DL 11.2-15.7 HEMATOCRIT (BEAKER) (test abim=332) 29.0 % 34.1-44.9 MEAN CORPUSCULAR VOLUME (BEAKER) (test eryt=843) 96.0 fL 79.4-94.8 MEAN CORPUSCULAR HEMOGLOBIN (BEAKER) (test 30.5 pg 25.6-32.2 oqmc=767) MEAN CORPUSCULAR HEMOGLOBIN CONC (BEAKER) (test 31.7 GM/DL 32.2-35.5 lnme=947) RED CELL DISTRIBUTION WIDTH (BEAKER) (test 14.4 % 11.7-14.4 orrx=411) PLATELET COUNT (BEAKER) (test snld=041) 337 K/CU MM 150-450 MEAN PLATELET VOLUME (BEAKER) (test ctbd=745) 10.7 fL 9.4-12.3 NUCLEATED RED BLOOD CELLS (BEAKER) (test 0 /100 WBC 0-0 dkoa=992) NEUTROPHILS RELATIVE PERCENT (BEAKER) (test 92 % nvzm=150) LYMPHOCYTES RELATIVE PERCENT (BEAKER) (test 5 % vzxt=650) MONOCYTES RELATIVE PERCENT (BEAKER) (test 3 % mwnw=139) EOSINOPHILS RELATIVE PERCENT (BEAKER) (test 0 % paiw=644) BASOPHILS RELATIVE PERCENT (BEAKER) (test 0 % vpui=111) NEUTROPHILS ABSOLUTE COUNT (BEAKER) (test 10.91 K/ L 1.56-6.13 ioml=208) LYMPHOCYTES ABSOLUTE COUNT (BEAKER) (test 0.55 K/ L 1.18-3.74 obhj=143) MONOCYTES ABSOLUTE COUNT (BEAKER) (test 0.30 K/ L 0.24-0.36 bjyy=920) EOSINOPHILS ABSOLUTE COUNT (BEAKER) (test 0.00 K/ L 0.04-0.36 bytd=494) BASOPHILS ABSOLUTE COUNT (BEAKER) (test 0.01 K/ L 0.01-0.08 oime=410) IMMATURE GRANULOCYTES-RELATIVE PERCENT (BEAKER) 1 % 0-1 (test tchk=4526) CALCIUM, [id number] 05:19:00 Test Item Value Reference Range Comments CALCIUM IONIZED (BEAKER) (test rubo=837) 1.08 mmol/L 1.12-1.27 PH, BLOOD (BEAKER) (test jfpr=4464) 7.41 POCT-GLUCOSE [id number] 05:08:00 Test Item Value Reference Range Comments POC-GLUCOSE METER (BEAKER) 237 mg/dL 70-[address] [facility] [address] (test vxse=7645) [facility] [address] [id number] 05:04:00 Test Item Value Reference Range Comments PHOSPHORUS (BEAKER) (test lkca=840) 3.2 mg/dL 2.3-4.7 [id number] 05:04:00 Test Item Value Reference Range Comments MAGNESIUM (BEAKER) (test jart=464) 2.0 mg/dL 1.6-2.6 BASIC METABOLIC [id number] 05:04:00 Test Item Value Reference Range Comments SODIUM (BEAKER) (test 133 meq/L 136-145 nfyo=888) POTASSIUM (BEAKER) (test 5.5 meq/L 3.5-5.1 ifnp=098) CHLORIDE (BEAKER) (test 100 meq/L 98-107 mlro=702) CO2 (BEAKER) (test 27 meq/L 22-29 xnig=861) BLOOD UREA NITROGEN 25 mg/dL 7-21 (BEAKER) (test rzih=574) CREATININE (BEAKER) (test 0.55 mg/dL 0.57-1.25 tazc=567) GLUCOSE RANDOM (BEAKER) 173 mg/dL 70-105 (test vgix=413) CALCIUM (BEAKER) (test 8.4 mg/dL 8.4-10.2 gpzm=650) EGFR (BEAKER) (test 113 mL/min/1.73 sq m ESTIMATED GFR IS NOT lsnx=8384) ACCURATE CREATININE CLEARANCE IN PREDICTING GLOMERULAR FILTRATION RATE. ESTIMATED GFR IS NOT APPLICABLE FOR DIALYSIS PATIENTS. PROTHROMBIN [id number] 05:03:00 Test Item Value Reference Range Comments PROTIME (BEAKER) (test ovuf=132) 15.4 seconds 11.7-14.7 INR (BEAKER) (test bsbq=356) 1.2 <=5.9 RECOMMENDED COUMADIN/WARFARIN INR THERAPY RANGESSTANDARD DOSE: 2.0 - 3.0 Includes: PROPHYLAXIS forvenous thrombosis, systemic embolization; TREATMENT for venous thrombosis and/or pulmonary embolus.HIGH RISK: Target INR is 2.5-3.5 for patients with mechanical heart valves.POCT-GLUCOSE [id number] 23:13:00 Test Item Value Reference Range Comments POC-GLUCOSE METER (BEAKER) 140 mg/dL 70-110 TESTED AT [address] (test amxk=4022) [facility] [address] POCT-GLUCOSE [id number] 16:46:00 Test Item Value Reference Range Comments POC-GLUCOSE METER (BEAKER) 252 mg/dL 70-110 TESTED AT [address] (test bnsw=5677) [facility] [address] POCT-GLUCOSE [id number] 11:42:00 Test Item Value Reference Range Comments POC-GLUCOSE METER (BEAKER) 191 mg/dL 70-110 TESTED AT [address] (test rkho=8296) [facility] [address] POCT-GLUCOSE [id number] 07:46:00 Test Item Value Reference Range Comments POC-GLUCOSE METER (BEAKER) 119 mg/dL 70-110 TESTED AT [address] (test mwwu=9879) [facility] [address] [id number] 05:40:00 Test Item Value Reference Range Comments PHOSPHORUS (BEAKER) (test xqkz=298) 2.7 mg/dL 2.3-4.7 [id number] 05:40:00 Test Item Value Reference Range Comments MAGNESIUM (BEAKER) (test oxgv=093) 1.9 mg/dL 1.6-2.6 BASIC METABOLIC [id number] 05:40:00 Test Item Value Reference Range Comments SODIUM (BEAKER) (test 137 meq/L 136-145 ozop=996) POTASSIUM (BEAKER) (test 4.4 meq/L 3.5-5.1 cfym=273) CHLORIDE (BEAKER) (test 103 meq/L 98-107 wzrw=010) CO2 (BEAKER) (test 28 meq/L 22-29 pppm=863) BLOOD UREA NITROGEN 23 mg/dL 7-21 (BEAKER) (test aipb=151) CREATININE (BEAKER) (test 0.48 mg/dL 0.57-1.25 oigd=644) GLUCOSE RANDOM (BEAKER) 106 mg/dL 70-105 (test mign=207) CALCIUM (BEAKER) (test 8.1 mg/dL 8.4-10.2 tooe=223) EGFR (BEAKER) (test 132 mL/min/1.73 sq m ESTIMATED GFR IS NOT eydf=1036) ACCURATE CREATININE CLEARANCE IN PREDICTING GLOMERULAR FILTRATION RATE. ESTIMATED GFR IS NOT APPLICABLE FOR DIALYSIS PATIENTS. POCT-GLUCOSE [id number] 05:26:00 Test Item Value Reference Range Comments POC-GLUCOSE METER (BEAKER) 154 mg/dL 70-[address] [facility] [address] [facility] (test hlnj=7038) [facility] [address] CALCIUM, [id number] 04:52:00 Test Item Value Reference Range Comments CALCIUM IONIZED (BEAKER) (test ragu=466) 1.10 mmol/L 1.12-1.27 PH, BLOOD (BEAKER) (test sgwb=1180) 7.42 CBC W/PLT COUNT & AUTO [id number] 04:48:00 Test Item Value Reference Range Comments WHITE BLOOD CELL COUNT (BEAKER) (test sype=774) 9.9 K/ L 3.5-10.5 RED BLOOD CELL COUNT (BEAKER) (test infq=182) 2.94 M/ L 3.93-5.22 HEMOGLOBIN (BEAKER) (test jhmh=886) 8.7 GM/DL 11.2-15.7 HEMATOCRIT (BEAKER) (test fgpg=511) 28.1 % 34.1-44.9 MEAN CORPUSCULAR VOLUME (BEAKER) (test dzuy=672) 95.6 fL 79.4-94.8 MEAN CORPUSCULAR HEMOGLOBIN (BEAKER) (test 29.6 pg 25.6-32.2 favw=925) MEAN CORPUSCULAR HEMOGLOBIN CONC (BEAKER) (test 31.0 GM/DL 32.2-35.5 rkcp=495) RED CELL DISTRIBUTION WIDTH (BEAKER) (test 14.2 % 11.7-14.4 gtcs=655) PLATELET COUNT (BEAKER) (test ytdi=450) 350 K/CU MM 150-450 MEAN PLATELET VOLUME (BEAKER) (test fxlm=820) 10.6 fL 9.4-12.3 NUCLEATED RED BLOOD CELLS (BEAKER) (test 0 /100 WBC 0-0 zbrw=835) NEUTROPHILS RELATIVE PERCENT (BEAKER) (test 78 % bpeg=572) LYMPHOCYTES RELATIVE PERCENT (BEAKER) (test 12 % npgc=756) MONOCYTES RELATIVE PERCENT (BEAKER) (test 10 % gcwx=280) EOSINOPHILS RELATIVE PERCENT (BEAKER) (test 0 % aife=640) BASOPHILS RELATIVE PERCENT (BEAKER) (test 0 % uzow=573) NEUTROPHILS ABSOLUTE COUNT (BEAKER) (test 7.69 K/ L 1.56-6.13 sibj=919) LYMPHOCYTES ABSOLUTE COUNT (BEAKER) (test 1.16 K/ L 1.18-3.74 tkxu=108) MONOCYTES ABSOLUTE COUNT (BEAKER) (test 0.97 K/ L 0.24-0.36 qoxm=350) EOSINOPHILS ABSOLUTE COUNT (BEAKER) (test 0.02 K/ L 0.04-0.36 idrj=348) BASOPHILS ABSOLUTE COUNT (BEAKER) (test 0.02 K/ L 0.01-0.08 fugu=982) IMMATURE GRANULOCYTES-RELATIVE PERCENT (BEAKER) 1 % 0-1 (test dlfo=9152) POCT-GLUCOSE [id number] 23:21:00 Test Item Value Reference Range Comments POC-GLUCOSE METER (BEAKER) 154 mg/dL 70-110 TESTED AT [address] (test mwxt=5378) [place] [id number] VANCOMYCIN LEVEL, [id number] 19:56:00 Test Item Value Reference Range Comments VANCOMYCIN TROUGH (BEAKER) (test wyst=182) 14.9 ug/mL 10.0-20.0 Before vanc dosePOCT-GLUCOSE [id number] 16:43:00 Test Item Value Reference Range Comments POC-GLUCOSE METER (BEAKER) 182 mg/dL 70-110 TESTED AT [address] (test ofxq=3987) [place] [address] POCT-GLUCOSE [id number] 12:09:00 Test Item Value Reference Range Comments POC-GLUCOSE METER (BEAKER) 163 mg/dL 70-110 TESTED AT [address] (test pqdb=1545) [place] [address] POCT-GLUCOSE [id number] 05:48:00 Test Item Value Reference Range Comments POC-GLUCOSE METER (BEAKER) 144 mg/dL 70-110 TESTED AT [address] (test unkf=3017) [place] [address] BASIC METABOLIC [id number] 03:50:00 Test Item Value Reference Range Comments SODIUM (BEAKER) (test 133 meq/L 136-145 fnml=983) POTASSIUM (BEAKER) (test 4.5 meq/L 3.5-5.1 xymh=209) CHLORIDE (BEAKER) (test 99 meq/L 98-107 xamo=965) CO2 (BEAKER) (test 27 meq/L 22-29 hrok=802) BLOOD UREA NITROGEN 23 mg/dL 7-21 (BEAKER) (test vtne=005) CREATININE (BEAKER) (test 0.48 mg/dL 0.57-1.25 qszn=546) GLUCOSE RANDOM (BEAKER) 90 mg/dL 70-105 (test efkb=758) CALCIUM (BEAKER) (test 8.2 mg/dL 8.4-10.2 edic=316) EGFR (BEAKER) (test 132 mL/min/1.73 sq m ESTIMATED GFR IS NOT asbt=1700) ACCURATE CREATININE CLEARANCE IN PREDICTING GLOMERULAR FILTRATION RATE. ESTIMATED GFR IS NOT APPLICABLE FOR DIALYSIS PATIENTS. HEPATIC FUNCTION [id number] 03:50:00 Test Item Value Reference Range Comments TOTAL PROTEIN (BEAKER) (test klai=054) 5.7 gm/dL 6.0-8.3 ALBUMIN (BEAKER) (test xwgh=5150) 2.6 g/dL 3.5-5.0 BILIRUBIN TOTAL (BEAKER) (test oesi=363) 0.6 mg/dL 0.2-1.2 BILIRUBIN DIRECT (BEAKER) (test jrdf=031) 0.4 mg/dL 0.1-0.5 ALKALINE PHOSPHATASE (BEAKER) (test qmef=181) 83 U/L 40-150 AST (SGOT) (BEAKER) (test dvop=094) 16 U/L 5-34 ALT (SGPT) (BEAKER) (test tqel=204) 19 U/L 6-55 [id number] 03:49:00 Test Item Value Reference Range Comments PHOSPHORUS (BEAKER) (test kcql=720) 2.6 mg/dL 2.3-4.7 [id number] 03:49:00 Test Item Value Reference Range Comments MAGNESIUM (BEAKER) (test dxpb=250) 2.0 mg/dL 1.6-2.6 CALCIUM, [id number] 03:28:00 Test Item Value Reference Range Comments CALCIUM IONIZED (BEAKER) (test jvsy=071) 1.08 mmol/L 1.12-1.27 PH, BLOOD (BEAKER) (test cptm=4518) 7.47 CBC W/PLT COUNT & AUTO [id number] 03:14:00 Test Item Value Reference Range Comments WHITE BLOOD CELL COUNT (BEAKER) (test wzvv=461) 11.4 K/ L 3.5-10.5 RED BLOOD CELL COUNT (BEAKER) (test gnda=561) 2.91 M/ L 3.93-5.22 HEMOGLOBIN (BEAKER) (test ejee=379) 8.8 GM/DL 11.2-15.7 HEMATOCRIT (BEAKER) (test mwjp=535) 27.6 % 34.1-44.9 MEAN CORPUSCULAR VOLUME (BEAKER) (test zius=521) 94.8 fL 79.4-94.8 MEAN CORPUSCULAR HEMOGLOBIN (BEAKER) (test 30.2 pg 25.6-32.2 amqs=955) MEAN CORPUSCULAR HEMOGLOBIN CONC (BEAKER) (test 31.9 GM/DL 32.2-35.5 raki=662) RED CELL DISTRIBUTION WIDTH (BEAKER) (test 14.5 % 11.7-14.4 quad=917) PLATELET COUNT (BEAKER) (test ajue=240) 335 K/CU MM 150-450 MEAN PLATELET VOLUME (BEAKER) (test ewml=422) 10.6 fL 9.4-12.3 NUCLEATED RED BLOOD CELLS (BEAKER) (test 0 /100 WBC 0-0 scdb=614) NEUTROPHILS RELATIVE PERCENT (BEAKER) (test 81 % viqb=163) LYMPHOCYTES RELATIVE PERCENT (BEAKER) (test 9 % krgy=464) MONOCYTES RELATIVE PERCENT (BEAKER) (test 9 % kjxi=771) EOSINOPHILS RELATIVE PERCENT (BEAKER) (test 0 % qbhn=741) BASOPHILS RELATIVE PERCENT (BEAKER) (test 0 % dswu=565) NEUTROPHILS ABSOLUTE COUNT (BEAKER) (test 9.23 K/ L 1.56-6.13 vkqm=057) LYMPHOCYTES ABSOLUTE COUNT (BEAKER) (test 1.01 K/ L 1.18-3.74 dzzd=105) MONOCYTES ABSOLUTE COUNT (BEAKER) (test 1.07 K/ L 0.24-0.36 xqsv=650) EOSINOPHILS ABSOLUTE COUNT (BEAKER) (test 0.02 K/ L 0.04-0.36 yoze=361) BASOPHILS ABSOLUTE COUNT (BEAKER) (test 0.02 K/ L 0.01-0.08 ikjn=782) IMMATURE GRANULOCYTES-RELATIVE PERCENT (BEAKER) 1 % 0-1 (test eian=3621) POCT-GLUCOSE [id number] 23:01:00 Test Item Value Reference Range Comments POC-GLUCOSE METER (BEAKER) 177 mg/dL 70-110 TESTED AT [address] (test fvqp=5377) [place] [address] POCT-GLUCOSE [id number] 17:40:00 Test Item Value Reference Range Comments POC-GLUCOSE METER (BEAKER) 220 mg/dL 70-110 TESTED AT [address] (test zbnz=5623) [place] [id number] POCT-GLUCOSE [id number] 12:09:00 Test Item Value Reference Range Comments POC-GLUCOSE METER (BEAKER) 146 mg/dL 70-110 TESTED AT [address] (test pwps=0381) [place] [id number] HEPATITIS PANEL, [id number] 08:46:00 Test Item Value Reference Range Comments HEPATITIS A IGM ANTIBODY (BEAKER) (test Nonreactive Nonreactive gdlx=541) HEPATITIS B CORE IGM ANTIBODY (BEAKER) (test Nonreactive Nonreactive enpo=223) HEPATITIS C ANTIBODY (BEAKER) (test flfm=884) Nonreactive Nonreactive HEPATITIS B SURFACE ANTIGEN (2) (BEAKER) (test Nonreactive Nonreactive dwjl=8915) HIV-1 ANTIGEN WITH HIV-1/2 [id number] 08:46:00 Test Item Value Reference Range Comments HIV-1 ANTIGEN WITH HIV 1\\T\\2 ANTIBODY (2) Nonreactive Nonreactive (BEAKER) (test npdl=4033) CBC W/PLT COUNT & AUTO [id number] 08:36:00 Test Item Value Reference Range Comments WHITE BLOOD CELL COUNT (BEAKER) (test xhuz=801) 15.1 K/ L 3.5-10.5 RED BLOOD CELL COUNT (BEAKER) (test uhhx=146) 2.74 M/ L 3.93-5.22 HEMOGLOBIN (BEAKER) (test pmnk=141) 8.4 GM/DL 11.2-15.7 HEMATOCRIT (BEAKER) (test kmlu=667) 26.6 % 34.1-44.9 MEAN CORPUSCULAR VOLUME (BEAKER) (test wfgs=165) 97.1 fL 79.4-94.8 MEAN CORPUSCULAR HEMOGLOBIN (BEAKER) (test 30.7 pg 25.6-32.2 cddj=363) MEAN CORPUSCULAR HEMOGLOBIN CONC (BEAKER) (test 31.6 GM/DL 32.2-35.5 asxs=621) RED CELL DISTRIBUTION WIDTH (BEAKER) (test 14.9 % 11.7-14.4 mifc=496) PLATELET COUNT (BEAKER) (test uaqh=917) 316 K/CU MM 150-450 MEAN PLATELET VOLUME (BEAKER) (test mhsm=500) 11.1 fL 9.4-12.3 NUCLEATED RED BLOOD CELLS (BEAKER) (test 0 /100 WBC 0-0 byuu=647) NEUTROPHILS RELATIVE PERCENT (BEAKER) (test 83 % cmyf=092) LYMPHOCYTES RELATIVE PERCENT (BEAKER) (test 8 % wnbn=327) MONOCYTES RELATIVE PERCENT (BEAKER) (test 8 % rlqy=239) EOSINOPHILS RELATIVE PERCENT (BEAKER) (test 0 % wetw=583) BASOPHILS RELATIVE PERCENT (BEAKER) (test 0 % frns=209) NEUTROPHILS ABSOLUTE COUNT (BEAKER) (test 12.50 K/ L 1.56-6.13 sltm=627) LYMPHOCYTES ABSOLUTE COUNT (BEAKER) (test 1.18 K/ L 1.18-3.74 cndd=080) MONOCYTES ABSOLUTE COUNT (BEAKER) (test 1.26 K/ L 0.24-0.36 frdb=740) EOSINOPHILS ABSOLUTE COUNT (BEAKER) (test 0.01 K/ L 0.04-0.36 jjha=057) BASOPHILS ABSOLUTE COUNT (BEAKER) (test 0.03 K/ L 0.01-0.08 jkxx=689) IMMATURE GRANULOCYTES-RELATIVE PERCENT (BEAKER) 1 % 0-1 (test rymh=2625) [id number] 08:22:00 Test Item Value Reference Range Comments PHOSPHORUS (BEAKER) (test pfrp=018) 2.4 mg/dL 2.3-4.7 [id number] 08:22:00 Test Item Value Reference Range Comments MAGNESIUM (BEAKER) (test iopu=554) 1.8 mg/dL 1.6-2.6 BASIC METABOLIC [id number] 08:22:00 Test Item Value Reference Range Comments SODIUM (BEAKER) (test 138 meq/L 136-145 zwkh=467) POTASSIUM (BEAKER) (test 4.5 meq/L 3.5-5.1 xjsk=840) CHLORIDE (BEAKER) (test 104 meq/L 98-107 zjla=927) CO2 (BEAKER) (test 25 meq/L 22-29 blnw=168) BLOOD UREA NITROGEN 22 mg/dL 7-21 (BEAKER) (test fwld=474) CREATININE (BEAKER) (test 0.52 mg/dL 0.57-1.25 totd=378) GLUCOSE RANDOM (BEAKER) 76 mg/dL 70-105 (test znkt=681) CALCIUM (BEAKER) (test 8.3 mg/dL 8.4-10.2 qevd=196) EGFR (BEAKER) (test 121 mL/min/1.73 sq m ESTIMATED GFR IS NOT zuzj=2225) ACCURATE CREATININE CLEARANCE IN PREDICTING GLOMERULAR FILTRATION RATE. ESTIMATED GFR IS NOT APPLICABLE FOR DIALYSIS PATIENTS. [id number] 07:21:00 Test Item Value Reference Range Comments PROTIME (BEAKER) (test cnaa=114) 16.9 seconds 11.7-14.7 INR (BEAKER) (test zlqg=912) 1.4 <=5.9 PARTIAL THROMBOPLASTIN TIME (BEAKER) (test 32.6 seconds 22.5-36.0 qcyr=278) RECOMMENDED COUMADIN/WARFARIN INR THERAPY RANGESSTANDARD DOSE: 2.0 - 3.0 Includes: PROPHYLAXIS forvenous thrombosis, systemic embolization; TREATMENT for venous thrombosis and/or pulmonary embolus.HIGH RISK: Target INR is 2.5-3.5 for patients with mechanical heart valves.POCT-GLUCOSE [id number] 07:16:00 Test Item Value Reference Range Comments POC-GLUCOSE METER (BEAKER) 135 mg/dL 70-[address] [facility] [address] [facility] (test egte=4967) [facility] [address] CALCIUM, [id number] 06:44:00 Test Item Value Reference Range Comments CALCIUM IONIZED (BEAKER) (test sumf=473) 1.07 mmol/L 1.12-1.27 PH, BLOOD (BEAKER) (test cabe=7211) 7.42 POCT-GLUCOSE [id number] 23:12:00 Test Item Value Reference Range Comments POC-GLUCOSE METER (BEAKER) 173 mg/dL 70-[address] [facility] [address] (test sptg=7774) [facility] [address] [address], DRAINAGE, [id number] 17:13:00Send fluid for C\\T\\S, Gstain, fungal C \\T\\S. Place to bulb suction. Reason for exam:->intestinal leak Should this be performed at the bedside?->NoFINAL REPORT CT- guided drainage catheter placement dated 11/17/2017 Name of practitioner performing procedure:Lucy Peraza M.D. Names of stores assistant:None Procedure: Drainage placement into the abdominal abscess Preprocedure diagnosis:Abdominal abscess Postprocedure diagnosis:Abdominal abscess Specimens removed:10 cc of cloudy fluid Estimated blood loss:None Complication:None Sedation: Moderate sedation was administered. 0.5 mg of Versed and 50 mcg fentanyl IV was used for moderatesedation monitored under my direction. Total intraservice time of the sedation was 20 minutes. The patient's vital signs were monitored throughout the procedure and recorded in the patient's medical record by the nurse. Graft/ Implants:None Technique: This exam was performed according to our departmental dose-optimization program, which includes automated exposure control, adjustment of the mA and/orkV according to patient size and/or use of interactive reconstruction technique. After obtaining informed consent, CT- guided drainage catheter placement was performed under usual sterile technique. A 10 [place] pigtail catheter was placed into the right mid abdominal air-fluid collection. The drainage catheter was left in place, secured to skin with suture , and connected to bulb suction. Nfoefadlfkbls18 cc of cloudy fluid was removed. The specimen was sent to microbiology. Impression: Successful CT- guided drainage catheter placement into the right mid abdominal air-fluid collection. Signed: Lucy Peraza MDReport Verified Date/Time: 11/17/2017 17:13: 40 Reading Location: [address] Body Reading Room CBC W/PLT COUNT & AUTO [id number] 13:16:00 Test Item Value Reference Range Comments WHITE BLOOD CELL COUNT (BEAKER) (test wmqx=616) 17.0 K/ L 3.5-10.5 RED BLOOD CELL COUNT (BEAKER) (test xgvu=548) 2.76 M/ L 3.93-5.22 HEMOGLOBIN (BEAKER) (test rgia=013) 8.3 GM/DL 11.2-15.7 HEMATOCRIT (BEAKER) (test yvuz=951) 26.8 % 34.1-44.9 MEAN CORPUSCULAR VOLUME (BEAKER) (test mtnv=736) 97.1 fL 79.4-94.8 MEAN CORPUSCULAR HEMOGLOBIN (BEAKER) (test 30.1 pg 25.6-32.2 iaiy=027) MEAN CORPUSCULAR HEMOGLOBIN CONC (BEAKER) (test 31.0 GM/DL 32.2-35.5 vnok=250) RED CELL DISTRIBUTION WIDTH (BEAKER) (test 15.6 % 11.7-14.4 fpru=658) PLATELET COUNT (BEAKER) (test gjwy=841) 314 K/CU MM 150-450 MEAN PLATELET VOLUME (BEAKER) (test flmb=947) 11.1 fL 9.4-12.3 NUCLEATED RED BLOOD CELLS (BEAKER) (test 0 /100 WBC 0-0 ylqd=140) NEUTROPHILS RELATIVE PERCENT (BEAKER) (test 84 % okfo=009) LYMPHOCYTES RELATIVE PERCENT (BEAKER) (test 8 % llhc=441) MONOCYTES RELATIVE PERCENT (BEAKER) (test 8 % hwrr=191) EOSINOPHILS RELATIVE PERCENT (BEAKER) (test 0 % kiuo=236) BASOPHILS RELATIVE PERCENT (BEAKER) (test 0 % wput=874) NEUTROPHILS ABSOLUTE COUNT (BEAKER) (test 14.20 K/ L 1.56-6.13 pdve=313) LYMPHOCYTES ABSOLUTE COUNT (BEAKER) (test 1.31 K/ L 1.18-3.74 avhr=020) MONOCYTES ABSOLUTE COUNT (BEAKER) (test 1.35 K/ L 0.24-0.36 btcl=069) EOSINOPHILS ABSOLUTE COUNT (BEAKER) (test 0.01 K/ L 0.04-0.36 sqbq=569) BASOPHILS ABSOLUTE COUNT (BEAKER) (test 0.02 K/ L 0.01-0.08 ytlu=711) IMMATURE GRANULOCYTES-RELATIVE PERCENT (BEAKER) 1 % 0-1 (test zmqp=5350) [id number] 13:15:00 Test Item Value Reference Range Comments PHOSPHORUS (BEAKER) (test kjma=406) 2.0 mg/dL 2.3-4.7 [id number] 13:15:00 Test Item Value Reference Range Comments MAGNESIUM (BEAKER) (test exyz=678) 1.7 mg/dL 1.6-2.6 [id number] 12:58:00 Test Item Value Reference Range Comments PROTIME (BEAKER) (test jktr=998) 17.3 seconds 11.7-14.7 INR (BEAKER) (test eigt=089) 1.4 <=5.9 PARTIAL THROMBOPLASTIN TIME (BEAKER) (test 33.1 seconds 22.5-36.0 orba=864) RECOMMENDED COUMADIN/WARFARIN INR THERAPY RANGESSTANDARD DOSE: 2.0 - 3.0 Includes: PROPHYLAXIS forvenous thrombosis, systemic embolization; TREATMENT for venous thrombosis and/or pulmonary embolus.HIGH RISK: Target INR is 2.5-3.5 for patients with mechanical heart valves.[id number] 08:29:00 Test Item Value Reference Range Comments PHOSPHORUS (BEAKER) (test ghlt=249) 2.3 mg/dL 2.3-4.7 [id number] 08:29:00 Test Item Value Reference Range Comments MAGNESIUM (BEAKER) (test nqos=360) 1.7 mg/dL 1.6-2.6 BASIC METABOLIC [id number] 08:29:00 Test Item Value Reference Range Comments SODIUM (BEAKER) (test 137 meq/L 136-145 xkbn=468) POTASSIUM (BEAKER) (test 4.3 meq/L 3.5-5.1 valo=470) CHLORIDE (BEAKER) (test 103 meq/L 98-107 xslb=457) CO2 (BEAKER) (test 28 meq/L 22-29 krvn=193) BLOOD UREA NITROGEN 22 mg/dL 7-21 (BEAKER) (test bynt=334) CREATININE (BEAKER) (test 0.51 mg/dL 0.57-1.25 xkvw=424) GLUCOSE RANDOM (BEAKER) 78 mg/dL 70-105 (test fcmd=972) CALCIUM (BEAKER) (test 8.1 mg/dL 8.4-10.2 bxgj=520) EGFR (BEAKER) (test 123 mL/min/1.73 sq m ESTIMATED GFR IS NOT mhxs=7303) ACCURATE CREATININE CLEARANCE IN PREDICTING GLOMERULAR FILTRATION RATE. ESTIMATED GFR IS NOT APPLICABLE FOR DIALYSIS PATIENTS. PROTHROMBIN [id number] 08:20:00 Test Item Value Reference Range Comments PROTIME (BEAKER) (test enpp=173) 17.8 seconds 11.7-14.7 INR (BEAKER) (test mqwm=457) 1.5 <=5.9 RECOMMENDED COUMADIN/WARFARIN INR THERAPY RANGESSTANDARD DOSE: 2.0 - 3.0 Includes: PROPHYLAXIS forvenous thrombosis, systemic embolization; TREATMENT for venous thrombosis and/or pulmonary embolus.HIGH RISK: Target INR is 2.5-3.5 for patients with mechanical heart valves.CBC W/PLT COUNT & AUTO [id number] 08:07:00 Test Item Value Reference Range Comments WHITE BLOOD CELL COUNT (BEAKER) (test wtck=011) 16.0 K/ L 3.5-10.5 RED BLOOD CELL COUNT (BEAKER) (test nxjc=418) 2.79 M/ L 3.93-5.22 HEMOGLOBIN (BEAKER) (test vyea=673) 8.3 GM/DL 11.2-15.7 HEMATOCRIT (BEAKER) (test lxnr=146) 26.5 % 34.1-44.9 MEAN CORPUSCULAR VOLUME (BEAKER) (test anxd=348) 95.0 fL 79.4-94.8 MEAN CORPUSCULAR HEMOGLOBIN (BEAKER) (test 29.7 pg 25.6-32.2 hwxa=836) MEAN CORPUSCULAR HEMOGLOBIN CONC (BEAKER) (test 31.3 GM/DL 32.2-35.5 twbo=216) RED CELL DISTRIBUTION WIDTH (BEAKER) (test 15.0 % 11.7-14.4 dfsl=126) PLATELET COUNT (BEAKER) (test jufg=308) 304 K/CU MM 150-450 MEAN PLATELET VOLUME (BEAKER) (test bpxb=991) 10.6 fL 9.4-12.3 NUCLEATED RED BLOOD CELLS (BEAKER) (test 0 /100 WBC 0-0 xbim=876) NEUTROPHILS RELATIVE PERCENT (BEAKER) (test 83 % xoto=194) LYMPHOCYTES RELATIVE PERCENT (BEAKER) (test 9 % ruyz=419) MONOCYTES RELATIVE PERCENT (BEAKER) (test 7 % mmrc=167) EOSINOPHILS RELATIVE PERCENT (BEAKER) (test 1 % ztdl=499) BASOPHILS RELATIVE PERCENT (BEAKER) (test 0 % kqau=931) NEUTROPHILS ABSOLUTE COUNT (BEAKER) (test 13.19 K/ L 1.56-6.13 wtft=726) LYMPHOCYTES ABSOLUTE COUNT (BEAKER) (test 1.41 K/ L 1.18-3.74 puiw=737) MONOCYTES ABSOLUTE COUNT (BEAKER) (test 1.12 K/ L 0.24-0.36 iyme=756) EOSINOPHILS ABSOLUTE COUNT (BEAKER) (test 0.08 K/ L 0.04-0.36 zfqo=221) BASOPHILS ABSOLUTE COUNT (BEAKER) (test 0.04 K/ L 0.01-0.08 axyg=044) IMMATURE GRANULOCYTES-RELATIVE PERCENT (BEAKER) 1 % 0-1 (test lmmy=0675) POCT-GLUCOSE [id number] 05:30:00 Test Item Value Reference Range Comments POC-GLUCOSE METER (BEAKER) 145 mg/dL 70-110 TESTED AT [address] (test yarv=8267) [place] [id number] CALCIUM, [id number] 02:43:00 Test Item Value Reference Range Comments CALCIUM IONIZED (BEAKER) (test bbhd=103) 1.08 mmol/L 1.12-1.27 PH, BLOOD (BEAKER) (test ithl=5871) 7.45 POCT-GLUCOSE [id number] 00:09:00 Test Item Value Reference Range Comments POC-GLUCOSE METER (BEAKER) 135 mg/dL 70-110 TESTED AT [address] (test aszh=1557) [facility] [address] THROMBOELASTOGRAPH (TEG)[id number] 17:44:00 Test Item Value Reference Range Comments TEG ACTIVATED CLOTTING TIME (BEAKER) (test 5.6 minutes 4.0-7.0 ezea=4148) TEG FIBRINOGEN ACTIVITY (BEAKER) (test 76.5 degrees 61.0-73.0 goqb=2621) TEG PLT. AGGREGATION (BEAKER) (test tlsy=3019) 72.1 MM 55.0-65.0 TEG FIBRINOLYSIS (BEAKER) (test mnsp=1050) 0.1 % 0.0-5.0 TGH ACTIVATED CLOTTING TIME (BEAKER) (test 5.8 minutes 4.0-7.0 zirp=8033) TGH FIBRINOGEN ACTIVITY (BEAKER) (test 75.6 degrees 61.0-73.0 wizc=9272) TGH PLT. AGGREGATION (BEAKER) (test nwdw=0616) 69.9 MM 55.0-65.0 TGH FIBRINOLYSIS (BEAKER) (test baxw=2749) 0.0 % 0.0-5.0 POCT-GLUCOSE [id number] 17:10:00 Test Item Value Reference Range Comments POC-GLUCOSE METER (BEAKER) 160 mg/dL 70-110 TESTED AT [address] (test gzfk=9901) [place] [address] [id number] 16:08:00 Test Item Value Reference Range Comments FIBRINOGEN LEVEL (BEAKER) (test gnzs=389) 335 mg/dl 225-434 POCT-GLUCOSE [id number] 14:43:00 Test Item Value Reference Range Comments POC-GLUCOSE METER (BEAKER) 205 mg/dL 70-110 TESTED AT [address] (test szfb=8146) [place] [address] PROTHROMBIN [id number] 11:51:00 Test Item Value Reference Range Comments PROTIME (BEAKER) (test qtfx=808) 19.6 seconds 11.7-14.7 INR (BEAKER) (test pmtv=814) 1.7 <=5.9 RECOMMENDED COUMADIN/WARFARIN INR THERAPY RANGESSTANDARD DOSE: 2.0 - 3.0 Includes: PROPHYLAXIS forvenous thrombosis, systemic embolization; TREATMENT for venous thrombosis and/or pulmonary embolus.HIGH RISK: Target INR is 2.5-3.5 for patients with mechanical heart valves.POCT-GLUCOSE [id number] 08:52:00 Test Item Value Reference Range Comments POC-GLUCOSE METER (BEAKER) 133 mg/dL 70-110 TESTED AT [address] (test bosv=0667) [place] [id number] POCT-GLUCOSE [id number] 06:06:00 Test Item Value Reference Range Comments POC-GLUCOSE METER (BEAKER) 144 mg/dL 70-[address] [facility] [address] (test oosv=8462) [facility] [address] CALCIUM, [id number] 04:52:00 Test Item Value Reference Range Comments CALCIUM IONIZED (BEAKER) (test lfxy=765) 1.01 mmol/L 1.12-1.27 PH, BLOOD (BEAKER) (test fxcu=4404) 7.45 BASIC METABOLIC [id number] 04:22:00 Test Item Value Reference Range Comments SODIUM (BEAKER) (test 137 meq/L 136-145 bqqf=140) POTASSIUM (BEAKER) (test 4.3 meq/L 3.5-5.1 evwp=679) CHLORIDE (BEAKER) (test 103 meq/L 98-107 efyn=547) CO2 (BEAKER) (test 28 meq/L 22-29 avtf=425) BLOOD UREA NITROGEN 28 mg/dL 7-21 (BEAKER) (test xpha=176) CREATININE (BEAKER) (test 0.50 mg/dL 0.57-1.25 pakh=119) GLUCOSE RANDOM (BEAKER) 112 mg/dL 70-105 (test pnix=684) CALCIUM (BEAKER) (test 7.7 mg/dL 8.4-10.2 azrs=455) EGFR (BEAKER) (test 126 mL/min/1.73 sq m ESTIMATED GFR IS NOT xgpv=4410) ACCURATE CREATININE CLEARANCE IN PREDICTING GLOMERULAR FILTRATION RATE. ESTIMATED GFR IS NOT APPLICABLE FOR DIALYSIS PATIENTS. [id number] 04:17:00 Test Item Value Reference Range Comments TRIGLYCERIDES (BEAKER) (test xdaz=379) 70 mg/dL TRIGLYCERIDE REFERENCE RANGELow Risk <150Borderline Risk 150-199High Risk 200-499Very High Risk>=[id number] 04:17:00 Test Item Value Reference Range Comments MAGNESIUM (BEAKER) (test azey=125) 2.0 mg/dL 1.6-2.6 [id number] 04:17:00 Test Item Value Reference Range Comments PHOSPHORUS (BEAKER) (test zphd=845) 2.3 mg/dL 2.3-4.7 [id number] 04:11:00 Test Item Value Reference Range Comments PROTIME (BEAKER) (test eprm=004) 22.8 seconds 11.7-14.7 INR (BEAKER) (test lmau=882) 2.0 <=5.9 PARTIAL THROMBOPLASTIN TIME (BEAKER) (test 41.9 seconds 22.5-36.0 gkpv=429) RECOMMENDED COUMADIN/WARFARIN INR THERAPY RANGESSTANDARD DOSE: 2.0 - 3.0 Includes: PROPHYLAXIS forvenous thrombosis, systemic embolization; TREATMENT for venous thrombosis and/or pulmonary embolus.HIGH RISK: Target INR is 2.5-3.5 for patients with mechanical heart valves.CBC W/PLT COUNT & AUTO [id number] 04:09:00 Test Item Value Reference Range Comments WHITE BLOOD CELL COUNT (BEAKER) (test izql=762) 21.9 K/ L 3.5-10.5 RED BLOOD CELL COUNT (BEAKER) (test lvpo=816) 3.21 M/ L 3.93-5.22 HEMOGLOBIN (BEAKER) (test mcwt=598) 9.6 GM/DL 11.2-15.7 HEMATOCRIT (BEAKER) (test tcqn=407) 29.8 % 34.1-44.9 MEAN CORPUSCULAR VOLUME (BEAKER) (test toat=636) 92.8 fL 79.4-94.8 MEAN CORPUSCULAR HEMOGLOBIN (BEAKER) (test 29.9 pg 25.6-32.2 ogpb=326) MEAN CORPUSCULAR HEMOGLOBIN CONC (BEAKER) (test 32.2 GM/DL 32.2-35.5 zupi=350) RED CELL DISTRIBUTION WIDTH (BEAKER) (test 15.1 % 11.7-14.4 lzpg=084) PLATELET COUNT (BEAKER) (test zffq=665) 292 K/CU MM 150-450 MEAN PLATELET VOLUME (BEAKER) (test awll=991) 10.8 fL 9.4-12.3 NUCLEATED RED BLOOD CELLS (BEAKER) (test 0 /100 WBC 0-0 cxnh=073) NEUTROPHILS RELATIVE PERCENT (BEAKER) (test 86 % ufrt=979) LYMPHOCYTES RELATIVE PERCENT (BEAKER) (test 6 % xiaz=206) MONOCYTES RELATIVE PERCENT (BEAKER) (test 6 % rzsy=765) EOSINOPHILS RELATIVE PERCENT (BEAKER) (test 0 % btux=070) BASOPHILS RELATIVE PERCENT (BEAKER) (test 0 % khcj=788) NEUTROPHILS ABSOLUTE COUNT (BEAKER) (test 18.89 K/ L 1.56-6.13 xpgb=982) LYMPHOCYTES ABSOLUTE COUNT (BEAKER) (test 1.37 K/ L 1.18-3.74 fawu=547) MONOCYTES ABSOLUTE COUNT (BEAKER) (test 1.34 K/ L 0.24-0.36 rwrw=942) EOSINOPHILS ABSOLUTE COUNT (BEAKER) (test 0.05 K/ L 0.04-0.36 hnly=620) BASOPHILS ABSOLUTE COUNT (BEAKER) (test 0.05 K/ L 0.01-0.08 rfmg=688) IMMATURE GRANULOCYTES-RELATIVE PERCENT (BEAKER) 1 % 0-1 (test doeh=6239) POCT-GLUCOSE [id number] 00:45:00 Test Item Value Reference Range Comments POC-GLUCOSE METER (BEAKER) 132 mg/dL 70-110 TESTED AT [address] (test vrjy=6131) [facility] [address] CT, [id number] 18:11:00PO and IV contrastFINAL REPORT ABDOMINAL AND PELVIS CT DATED 11/15/2017 COMPARISON: October CLINICAL INFORMATION: Fistula, GI TECHNIQUE: Axial images of the abdomen and pelvis were obtained from diaphragm to the pubic symphysis with GI and intravenous contrast. This exam was performedaccording to our departmental dose -optimization program, which includes automated exposure control, adjustment of the mA and/or kV according to patient size and/or use of interactive reconstruction technique. COMMENT: Previously noted right pleural effusion has been resolved. There is persistent smallto moderate left pleural effusion. Subsegmental atelectasis is seen in both lung bases. A large extraluminal collection is seen in the mid lower abdomen measuring 5.6 x 10 x 13.5 cm. A percutaneous drainage catheter is noted. GI contrast is seen in the collection suggestive of bowel perforation. The contrast is seen originating from a segment of the small bowel in the mid pelvis. A colostomy is seen in the left mid abdomen. Liver and spleen are normal in size without focal abnormality. Calcified granulomas are seen in the spleen. Gallbladder is contracted. No gallstone or biliary dilatation is noted. Pancreas and adrenals are unremarkable. Both kidneys are normal in size and functioning with prompt bilateral excretion. A 4.5 x 4 cm cyst is seen in the inferior pole right kidney. A 6 minutes cyst is seen in the inferior pole left kidney. There is diffusely decreased attenuation in the subcutaneous soft tissue suggestive of anasarca. Trace amount of free fluid is seen in the abdomen and pelvis. No pneumoperitoneum is seen. IMPRESSION: 1. Large extraluminal collection with GI contrast suggestive of small bowel perforation.2. Interval resolution of the right pleural effusion and persistent left pleural effusion.3. Trace ascites and subcutaneous edema.4. Bilateral renal cysts. Signed: Lucy Peraza MDReport Verified Date/Time: 11/15/2017 18:11:48 Reading Location: [address] Body Reading Room 06: 11 PMPOCT-GLUCOSE [id number] 11:41:00 Test Item Value Reference Range Comments POC-GLUCOSE METER (Codekko) 171 mg/dL 70-110 TESTED AT [address] (test gpgu=2715) [facility] [address] FUNGUS CULTURE + [id number] 10:38:00 Test Item Value Reference Range Comments CULTURE (BEAKER) (test <1+ Same organism has been wpvv=8973) isolated from culture(s) of the same body site and collection date. Repeat identification performed only after consultation with the clinical microbiology laboratory.Refer to previous culture ofCandida albicans FUNGUS SMEAR (BEAKER) No fungi seen (test psoh=7941) FUNGUS CULTURE + [id number] 10:37:00 Test Item Value Reference Range Comments CULTURE (BEAKER) (test rggb=1363) 5-Flurocytosine (test Susceptible 0-4 , ihja=977) Intermediate <0 or >4 , Resistant >16 Amphotericin B (test Susceptible >0-0 , No rwcf=792) Interpretations Established <=0 or >0 Caspofungin acetate Susceptible 0-0.12 , Non (test ymgl=877) Fluconazole (test Susceptible 0-0 , Dose wgjl=240) Dependent Susceptible <0 or >0 , Resi Micafungin (test Susceptible 0-0.06 , Non tqjq=990) Posaconazole (test Susceptible >0-0 , No jddu=022) Interpretations Established <=0 or >0 Voriconazole (test Susceptible >0-0 , Dose eakp=619) Dependent Susceptible <=0 or >0 , No CULTURE (BEAKER) (test 3+ Maryanne iszc=4331) glabrata FUNGUS SMEAR (BEAKER) <1+ budding (test vksf=4830) yeast BLOOD [id number] 10:00:00 Test Item Value Reference Range Comments CULTURE (BEAKER) (test jjsx=8932) No growth in 5 days BLOOD [id number] 10:00:00 Test Item Value Reference Range Comments CULTURE (BEAKER) (test cggv=3473) No growth in 5 days CBC W/PLT COUNT & AUTO [id number] 08:19:00 Test Item Value Reference Range Comments WHITE BLOOD CELL COUNT (BEAKER) (test kjmv=080) 29.0 K/ L 3.5-10.5 RED BLOOD CELL COUNT (BEAKER) (test bfxh=025) 3.41 M/ L 3.93-5.22 HEMOGLOBIN (BEAKER) (test dzoo=132) 10.2 GM/DL 11.2-15.7 HEMATOCRIT (BEAKER) (test mdie=160) 31.9 % 34.1-44.9 MEAN CORPUSCULAR VOLUME (BEAKER) (test nznm=930) 93.5 fL 79.4-94.8 MEAN CORPUSCULAR HEMOGLOBIN (BEAKER) (test 29.9 pg 25.6-32.2 gqhw=257) MEAN CORPUSCULAR HEMOGLOBIN CONC (BEAKER) (test 32.0 GM/DL 32.2-35.5 xqoz=976) RED CELL DISTRIBUTION WIDTH (BEAKER) (test 15.4 % 11.7-14.4 hsyo=195) PLATELET COUNT (BEAKER) (test drio=487) 276 K/CU MM 150-450 MEAN PLATELET VOLUME (BEAKER) (test zucx=097) 11.1 fL 9.4-12.3 NUCLEATED RED BLOOD CELLS (BEAKER) (test 0 /100 WBC 0-0 xdfa=631) NEUTROPHILS RELATIVE PERCENT (BEAKER) (test 87 % uurl=220) LYMPHOCYTES RELATIVE PERCENT (BEAKER) (test 6 % irmg=296) MONOCYTES RELATIVE PERCENT (BEAKER) (test 5 % dfyu=712) EOSINOPHILS RELATIVE PERCENT (BEAKER) (test 0 % yaea=617) BASOPHILS RELATIVE PERCENT (BEAKER) (test 0 % shvr=926) NEUTROPHILS ABSOLUTE COUNT (BEAKER) (test 25.13 K/ L 1.56-6.13 qahx=833) LYMPHOCYTES ABSOLUTE COUNT (BEAKER) (test 1.70 K/ L 1.18-3.74 eosd=813) MONOCYTES ABSOLUTE COUNT (BEAKER) (test 1.57 K/ L 0.24-0.36 hxxj=955) EOSINOPHILS ABSOLUTE COUNT (BEAKER) (test 0.13 K/ L 0.04-0.36 infz=013) BASOPHILS ABSOLUTE COUNT (BEAKER) (test 0.07 K/ L 0.01-0.08 jrma=321) IMMATURE GRANULOCYTES-RELATIVE PERCENT (BEAKER) 1 % 0-1 (test rqpk=7136) (MANUAL DIFFERENTIAL)2017-11-15 08:19:00 Test Item Value Reference Range Comments TOTAL COUNTED (BEAKER) (test dcuy=5778) WBC MORPHOLOGY (BEAKER) (test oqpf=492) Normal PLT MORPHOLOGY (BEAKER) (test qanf=151) Normal RBC MORPHOLOGY (BEAKER) (test tgfw=159) Normal CALCIUM, [id number] 04:56:00 Test Item Value Reference Range Comments CALCIUM IONIZED (BEAKER) (test gdmf=156) 1.15 mmol/L 1.12-1.27 PH, BLOOD (BEAKER) (test vyow=5016) 7.43 [id number] 04:29:00 Test Item Value Reference Range Comments PHOSPHORUS (BEAKER) (test jdcx=973) 2.5 mg/dL 2.3-4.7 [id number] 04:29:00 Test Item Value Reference Range Comments MAGNESIUM (BEAKER) (test ammn=038) 1.5 mg/dL 1.6-2.6 BASIC METABOLIC [id number] 04:29:00 Test Item Value Reference Range Comments SODIUM (BEAKER) (test 140 meq/L 136-145 zvxb=301) POTASSIUM (BEAKER) (test 4.3 meq/L 3.5-5.1 ghyh=133) CHLORIDE (BEAKER) (test 106 meq/L 98-107 msiy=596) CO2 (BEAKER) (test 27 meq/L 22-29 hpfz=574) BLOOD UREA NITROGEN 31 mg/dL 7-21 (BEAKER) (test ngkh=664) CREATININE (BEAKER) (test 0.50 mg/dL 0.57-1.25 plbu=553) GLUCOSE RANDOM (BEAKER) 112 mg/dL 70-105 (test fplr=721) CALCIUM (BEAKER) (test 8.0 mg/dL 8.4-10.2 jnmy=590) EGFR (BEAKER) (test 126 mL/min/1.73 sq m ESTIMATED GFR IS NOT sgti=1232) ACCURATE CREATININE CLEARANCE IN PREDICTING GLOMERULAR FILTRATION RATE. ESTIMATED GFR IS NOT APPLICABLE FOR DIALYSIS PATIENTS. PROTHROMBIN [id number] 04:16:00 Test Item Value Reference Range Comments PROTIME (BEAKER) (test gizz=348) 23.9 seconds 11.7-14.7 INR (BEAKER) (test hzdk=243) 2.1 <=5.9 RECOMMENDED COUMADIN/WARFARIN INR THERAPY RANGESSTANDARD DOSE: 2.0 - 3.0 Includes: PROPHYLAXIS forvenous thrombosis, systemic embolization; TREATMENT for venous thrombosis and/or pulmonary embolus.HIGH RISK: Target INR is 2.5-3.5 for patients with mechanical heart valves.POCT-GLUCOSE [id number] 00:37:00 Test Item Value Reference Range Comments POC-GLUCOSE METER (BEAKER) 113 mg/dL 70-110 TESTED AT [address] (test wdls=5498) [place] [id number] POCT-GLUCOSE [id number] 17:55:00 Test Item Value Reference Range Comments POC-GLUCOSE METER (BEAKER) 172 mg/dL 70-110 TESTED AT [address] (test ukrn=3428) [place] [id number] POCT-GLUCOSE [id number] 12:17:00 Test Item Value Reference Range Comments POC-GLUCOSE METER (BEAKER) 179 mg/dL 70-110 TESTED AT [address] (test qkym=3954) [place] [id number] CBC W/PLT COUNT & AUTO [id number] 08:15:00 Test Item Value Reference Range Comments WHITE BLOOD CELL COUNT (BEAKER) (test mkxv=024) 27.3 K/ L 3.5-10.5 RED BLOOD CELL COUNT (BEAKER) (test hlbz=984) 3.15 M/ L 3.93-5.22 HEMOGLOBIN (BEAKER) (test yfty=316) 9.6 GM/DL 11.2-15.7 HEMATOCRIT (BEAKER) (test elee=388) 29.8 % 34.1-44.9 MEAN CORPUSCULAR VOLUME (BEAKER) (test bnni=617) 94.6 fL 79.4-94.8 MEAN CORPUSCULAR HEMOGLOBIN (BEAKER) (test 30.5 pg 25.6-32.2 wqrq=030) MEAN CORPUSCULAR HEMOGLOBIN CONC (BEAKER) (test 32.2 GM/DL 32.2-35.5 fsmi=221) RED CELL DISTRIBUTION WIDTH (BEAKER) (test 15.7 % 11.7-14.4 utrs=579) PLATELET COUNT (BEAKER) (test bvbq=368) 214 K/CU MM 150-450 MEAN PLATELET VOLUME (BEAKER) (test mgme=238) 11.3 fL 9.4-12.3 NUCLEATED RED BLOOD CELLS (BEAKER) (test 0 /100 WBC 0-0 meiq=934) NEUTROPHILS RELATIVE PERCENT (BEAKER) (test 87 % tjxj=028) LYMPHOCYTES RELATIVE PERCENT (BEAKER) (test 6 % zxfx=045) MONOCYTES RELATIVE PERCENT (BEAKER) (test 5 % vyxv=491) EOSINOPHILS RELATIVE PERCENT (BEAKER) (test 1 % mvkt=964) BASOPHILS RELATIVE PERCENT (BEAKER) (test 0 % lumr=227) NEUTROPHILS ABSOLUTE COUNT (BEAKER) (test 23.56 K/ L 1.56-6.13 chtm=551) LYMPHOCYTES ABSOLUTE COUNT (BEAKER) (test 1.70 K/ L 1.18-3.74 vtwj=671) MONOCYTES ABSOLUTE COUNT (BEAKER) (test 1.41 K/ L 0.24-0.36 venx=284) EOSINOPHILS ABSOLUTE COUNT (BEAKER) (test 0.22 K/ L 0.04-0.36 owxr=766) BASOPHILS ABSOLUTE COUNT (BEAKER) (test 0.05 K/ L 0.01-0.08 nyid=032) IMMATURE GRANULOCYTES-RELATIVE PERCENT (BEAKER) 1 % 0-1 (test odxa=1354) (MANUAL DIFFERENTIAL)2017-11-14 08:15:00 Test Item Value Reference Range Comments TOTAL COUNTED (BEAKER) (test hpso=2918) WBC MORPHOLOGY (BEAKER) (test xmdt=463) Normal PLT MORPHOLOGY (BEAKER) (test jbyo=250) Normal RBC MORPHOLOGY (BEAKER) (test fzun=834) Normal VANCOMYCIN LEVEL, [id number] 08:13:00 Test Item Value Reference Range Comments VANCOMYCIN TROUGH (BEAKER) (test ftli=299) 12.9 ug/mL 10.0-20.0 POCT-GLUCOSE [id number] 06:30:00 Test Item Value Reference Range Comments POC-GLUCOSE METER (BEAKER) 134 mg/dL 70-[address] [facility] [address] [facility] (test bxxu=6199) [facility] [address] CALCIUM, [id number] 06:24:00 Test Item Value Reference Range Comments CALCIUM IONIZED (BEAKER) (test ylwn=395) 1.03 mmol/L 1.12-1.27 PH, BLOOD (BEAKER) (test mfdq=1635) 7.43 BASIC METABOLIC [id number] 04:52:00 Test Item Value Reference Range Comments SODIUM (BEAKER) (test 142 meq/L 136-145 ctvp=694) POTASSIUM (BEAKER) (test 4.0 meq/L 3.5-5.1 sdpg=464) CHLORIDE (BEAKER) (test 108 meq/L 98-107 ccmq=583) CO2 (BEAKER) (test 29 meq/L 22-29 zfzq=850) BLOOD UREA NITROGEN 31 mg/dL 7-21 (BEAKER) (test ppsp=829) CREATININE (BEAKER) (test 0.48 mg/dL 0.57-1.25 cxbm=128) GLUCOSE RANDOM (BEAKER) 93 mg/dL 70-105 (test osmm=859) CALCIUM (BEAKER) (test 7.7 mg/dL 8.4-10.2 ndiv=343) EGFR (BEAKER) (test 132 mL/min/1.73 sq m ESTIMATED GFR IS NOT juys=3777) ACCURATE CREATININE CLEARANCE IN PREDICTING GLOMERULAR FILTRATION RATE. ESTIMATED GFR IS NOT APPLICABLE FOR DIALYSIS PATIENTS. [id number] 04:49:00 Test Item Value Reference Range Comments PHOSPHORUS (BEAKER) (test dsjz=401) 2.1 mg/dL 2.3-4.7 [id number] 04:49:00 Test Item Value Reference Range Comments MAGNESIUM (BEAKER) (test bowp=334) 1.9 mg/dL 1.6-2.6 PROTHROMBIN [id number] 04:44:00 Test Item Value Reference Range Comments PROTIME (BEAKER) (test iouu=088) 23.6 seconds 11.7-14.7 INR (BEAKER) (test ilsq=410) 2.1 <=5.9 RECOMMENDED COUMADIN/WARFARIN INR THERAPY RANGESSTANDARD DOSE: 2.0 - 3.0 Includes: PROPHYLAXIS forvenous thrombosis, systemic embolization; TREATMENT for venous thrombosis and/or pulmonary embolus.HIGH RISK: Target INR is 2.5-3.5 for patients with mechanical heart valves.HEMOGLOBIN AND [id number] 04 :37:00 Test Item Value Reference Range Comments HEMOGLOBIN (BEAKER) (test tqle=963) 9.6 GM/DL 11.2-15.7 HEMATOCRIT (BEAKER) (test sbmo=326) 29.8 % 34.1-44.9 POCT-GLUCOSE [id number] 23:36:00 Test Item Value Reference Range Comments POC-GLUCOSE METER (BEAKER) 139 mg/dL 70-110 TESTED AT [address] (test qrsr=4824) [place] [id number] POCT-GLUCOSE [id number] 18:04:00 Test Item Value Reference Range Comments POC-GLUCOSE METER (BEAKER) 220 mg/dL 70-110 TESTED AT [address] (test jzoy=3845) [place] [id number] HEMOGLOBIN AND [id number] 17:09:00 Test Item Value Reference Range Comments HEMOGLOBIN (BEAKER) (test rtgm=508) 10.2 GM/DL 11.2-15.7 HEMATOCRIT (BEAKER) (test wsuv=808) 33.8 % 34.1-44.9 POCT-GLUCOSE [id number] 12:13:00 Test Item Value Reference Range Comments POC-GLUCOSE METER (BEAKER) 194 mg/dL 70-110 TESTED AT [address] (test ubgl=6715) [facility] [address] PROTHROMBIN [id number] 10:05:00 Test Item Value Reference Range Comments PROTIME (BEAKER) (test rews=073) 21.4 seconds 11.7-14.7 INR (BEAKER) (test lewb=856) 1.9 <=5.9 RECOMMENDED COUMADIN/WARFARIN INR THERAPY RANGESSTANDARD DOSE: 2.0 - 3.0 Includes: PROPHYLAXIS forvenous thrombosis, systemic embolization; TREATMENT for venous thrombosis and/or pulmonary embolus.HIGH RISK: Target INR is 2.5-3.5 for patients with mechanical heart valves.POCT-GLUCOSE [id number] 07:40:00 Test Item Value Reference Range Comments POC-GLUCOSE METER (BEAKER) 138 mg/dL 70-[address] [facility] [address] [facility] (test zsvi=4490) [facility] [address] CALCIUM, [id number] 04:47:00 Test Item Value Reference Range Comments CALCIUM IONIZED (BEAKER) (test vbrn=237) 1.16 mmol/L 1.12-1.27 PH, BLOOD (BEAKER) (test zaxn=3405) 7.41 CBC W/PLT COUNT & AUTO [id number] 04:41:00 Test Item Value Reference Range Comments WHITE BLOOD CELL COUNT (BEAKER) (test xnzb=791) 27.4 K/ L 3.5-10.5 RED BLOOD CELL COUNT (BEAKER) (test zlcl=525) 3.30 M/ L 3.93-5.22 HEMOGLOBIN (BEAKER) (test bdqy=643) 10.0 GM/DL 11.2-15.7 HEMATOCRIT (BEAKER) (test gaty=960) 30.8 % 34.1-44.9 MEAN CORPUSCULAR VOLUME (BEAKER) (test gqcl=321) 93.3 fL 79.4-94.8 MEAN CORPUSCULAR HEMOGLOBIN (BEAKER) (test 30.3 pg 25.6-32.2 vjea=119) MEAN CORPUSCULAR HEMOGLOBIN CONC (BEAKER) (test 32.5 GM/DL 32.2-35.5 yima=557) RED CELL DISTRIBUTION WIDTH (BEAKER) (test 15.6 % 11.7-14.4 ndxv=238) PLATELET COUNT (BEAKER) (test oxut=970) 189 K/CU MM 150-450 MEAN PLATELET VOLUME (BEAKER) (test mpoe=685) 11.0 fL 9.4-12.3 NUCLEATED RED BLOOD CELLS (BEAKER) (test 0 /100 WBC 0-0 yvtx=723) NEUTROPHILS RELATIVE PERCENT (BEAKER) (test 86 % qsxw=224) LYMPHOCYTES RELATIVE PERCENT (BEAKER) (test 6 % prcv=168) MONOCYTES RELATIVE PERCENT (BEAKER) (test 5 % zyki=221) EOSINOPHILS RELATIVE PERCENT (BEAKER) (test 1 % aqfw=666) BASOPHILS RELATIVE PERCENT (BEAKER) (test 0 % evzm=452) NEUTROPHILS ABSOLUTE COUNT (BEAKER) (test 23.62 K/ L 1.56-6.13 azhx=685) LYMPHOCYTES ABSOLUTE COUNT (BEAKER) (test 1.74 K/ L 1.18-3.74 qgnd=678) MONOCYTES ABSOLUTE COUNT (BEAKER) (test 1.30 K/ L 0.24-0.36 ntah=447) EOSINOPHILS ABSOLUTE COUNT (BEAKER) (test 0.29 K/ L 0.04-0.36 zlqs=191) BASOPHILS ABSOLUTE COUNT (BEAKER) (test 0.04 K/ L 0.01-0.08 eodz=226) IMMATURE GRANULOCYTES-RELATIVE PERCENT (BEAKER) 1 % 0-1 (test bqau=6969) BASIC METABOLIC [id number] 04:26:00 Test Item Value Reference Range Comments SODIUM (BEAKER) (test 145 meq/L 136-145 rikh=262) POTASSIUM (BEAKER) (test 4.0 meq/L 3.5-5.1 vggr=033) CHLORIDE (BEAKER) (test 109 meq/L 98-107 vscf=873) CO2 (BEAKER) (test 29 meq/L 22-29 wszc=114) BLOOD UREA NITROGEN 34 mg/dL 7-21 (BEAKER) (test llks=157) CREATININE (BEAKER) (test 0.54 mg/dL 0.57-1.25 tsun=849) GLUCOSE RANDOM (BEAKER) 117 mg/dL 70-105 (test usfw=198) CALCIUM (BEAKER) (test 7.8 mg/dL 8.4-10.2 zoet=106) EGFR (BEAKER) (test 116 mL/min/1.73 sq m ESTIMATED GFR IS NOT weep=9497) ACCURATE CREATININE CLEARANCE IN PREDICTING GLOMERULAR FILTRATION RATE. ESTIMATED GFR IS NOT APPLICABLE FOR DIALYSIS PATIENTS. [id number] 04:22:00 Test Item Value Reference Range Comments PHOSPHORUS (BEAKER) (test ovmc=775) 2.3 mg/dL 2.3-4.7 [id number] 04:22:00 Test Item Value Reference Range Comments MAGNESIUM (BEAKER) (test opqv=030) 1.7 mg/dL 1.6-2.6 PROTHROMBIN TIME/[id number] 21:51:00 Test Item Value Reference Range Comments PROTIME (BEAKER) (test aeol=578) 23.3 seconds 11.7-14.7 INR (BEAKER) (test ojsh=327) 2.1 <=5.9 RECOMMENDED COUMADIN/WARFARIN INR THERAPY RANGESSTANDARD DOSE: 2.0 - 3.0 Includes: PROPHYLAXIS forvenous thrombosis, systemic embolization; TREATMENT for venous thrombosis and/or pulmonary embolus.HIGH RISK: Target INR is 2.5-3.5 for patients with mechanical heart valves.POCT-GLUCOSE [id number] 18:30:00 Test Item Value Reference Range Comments POC-GLUCOSE METER (BEAKER) 151 mg/dL 70-110 TESTED AT [address] (test sobe=1302) [facility] [address] POCT-GLUCOSE [id number] 11:57:00 Test Item Value Reference Range Comments POC-GLUCOSE METER (BEAKER) 174 mg/dL 70-110 TESTED AT [address] (test qfdf=8198) [facility] [address] PROTHROMBIN [id number] 11:40:00 Test Item Value Reference Range Comments PROTIME (BEAKER) (test qerw=815) 20.8 seconds 11.7-14.7 INR (BEAKER) (test knmm=821) 1.8 <=5.9 RECOMMENDED COUMADIN/WARFARIN INR THERAPY RANGESSTANDARD DOSE: 2.0 - 3.0 Includes: PROPHYLAXIS forvenous thrombosis, systemic embolization; TREATMENT for venous thrombosis and/or pulmonary embolus.HIGH RISK: Target INR is 2.5-3.5 for patients with mechanical heart valves.CBC W/PLT COUNT & AUTO [id number] 11:32:00 Test Item Value Reference Range Comments WHITE BLOOD CELL COUNT (BEAKER) (test qkun=246) 28.8 K/ L 3.5-10.5 RED BLOOD CELL COUNT (BEAKER) (test qvia=298) 3.77 M/ L 3.93-5.22 HEMOGLOBIN (BEAKER) (test udcw=514) 11.1 GM/DL 11.2-15.7 HEMATOCRIT (BEAKER) (test bptr=341) 34.0 % 34.1-44.9 MEAN CORPUSCULAR VOLUME (BEAKER) (test atkf=420) 90.2 fL 79.4-94.8 MEAN CORPUSCULAR HEMOGLOBIN (BEAKER) (test 29.4 pg 25.6-32.2 yppi=118) MEAN CORPUSCULAR HEMOGLOBIN CONC (BEAKER) (test 32.6 GM/DL 32.2-35.5 zuhl=387) RED CELL DISTRIBUTION WIDTH (BEAKER) (test 15.9 % 11.7-14.4 dwrz=868) PLATELET COUNT (BEAKER) (test ydpz=151) 162 K/CU MM 150-450 MEAN PLATELET VOLUME (BEAKER) (test slin=356) 11.0 fL 9.4-12.3 NUCLEATED RED BLOOD CELLS (BEAKER) (test 0 /100 WBC 0-0 eyll=613) NEUTROPHILS RELATIVE PERCENT (BEAKER) (test 85 % bbtt=885) LYMPHOCYTES RELATIVE PERCENT (BEAKER) (test 6 % uvfg=981) MONOCYTES RELATIVE PERCENT (BEAKER) (test 5 % yczj=667) EOSINOPHILS RELATIVE PERCENT (BEAKER) (test 1 % zoub=541) BASOPHILS RELATIVE PERCENT (BEAKER) (test 0 % ndat=495) NEUTROPHILS ABSOLUTE COUNT (BEAKER) (test 24.49 K/ L 1.56-6.13 dqse=633) LYMPHOCYTES ABSOLUTE COUNT (BEAKER) (test 1.60 K/ L 1.18-3.74 inrr=412) MONOCYTES ABSOLUTE COUNT (BEAKER) (test 1.54 K/ L 0.24-0.36 tpdi=766) EOSINOPHILS ABSOLUTE COUNT (BEAKER) (test 0.22 K/ L 0.04-0.36 nkus=601) BASOPHILS ABSOLUTE COUNT (BEAKER) (test 0.09 K/ L 0.01-0.08 odvr=309) IMMATURE GRANULOCYTES-RELATIVE PERCENT (BEAKER) 3 % 0-1 (test onko=3325) (MANUAL DIFFERENTIAL)2017-11-12 11:32:00 Test Item Value Reference Range Comments TOTAL COUNTED (BEAKER) (test rxje=6247) WBC MORPHOLOGY (BEAKER) (test gdcl=021) Normal PLT MORPHOLOGY (BEAKER) (test tzwq=734) Normal ANISOCYTOSIS (BEAKER) (test dsjj=801) 1+ few POIKILOCYTES (BEAKER) (test wdpw=181) 1+ few HEMOGLOBIN AND [id number] 11:24:00 Test Item Value Reference Range Comments HEMOGLOBIN (BEAKER) (test gvxh=496) 9.9 GM/DL 11.2-15.7 HEMATOCRIT (BEAKER) (test deap=933) 31.0 % 34.1-44.9 VANCOMYCIN LEVEL, [id number] 09:40:00 Test Item Value Reference Range Comments VANCOMYCIN TROUGH (BEAKER) (test vsvp=291) 14.4 ug/mL 10.0-20.0 CALCIUM, [id number] 06:27:00 Test Item Value Reference Range Comments CALCIUM IONIZED (BEAKER) (test ttjc=930) 1.11 mmol/L 1.12-1.27 PH, BLOOD (BEAKER) (test hwak=5026) 7.49 POCT-GLUCOSE [id number] 06:26:00 Test Item Value Reference Range Comments POC-GLUCOSE METER (BEAKER) 190 mg/dL 70-110 TESTED AT [address] (test epga=4583) [facility] [address] BASIC METABOLIC [id number] 06:21:00 Test Item Value Reference Range Comments SODIUM (BEAKER) (test 144 meq/L 136-145 yugl=408) POTASSIUM (BEAKER) (test 3.4 meq/L 3.5-5.1 pjcw=722) CHLORIDE (BEAKER) (test 106 meq/L 98-107 jbzz=457) CO2 (BEAKER) (test 28 meq/L 22-29 cojy=312) BLOOD UREA NITROGEN 28 mg/dL 7-21 (BEAKER) (test vvbp=613) CREATININE (BEAKER) (test 0.53 mg/dL 0.57-1.25 dtes=860) GLUCOSE RANDOM (BEAKER) 158 mg/dL 70-105 (test klsh=000) CALCIUM (BEAKER) (test 7.5 mg/dL 8.4-10.2 eqjh=822) EGFR (BEAKER) (test 118 mL/min/1.73 sq m ESTIMATED GFR IS NOT tarz=8355) ACCURATE CREATININE CLEARANCE IN PREDICTING GLOMERULAR FILTRATION RATE. ESTIMATED GFR IS NOT APPLICABLE FOR DIALYSIS PATIENTS. [id number] 06:15:00 Test Item Value Reference Range Comments PHOSPHORUS (BEAKER) (test hpmx=751) 3.1 mg/dL 2.3-4.7 [id number] 06:15:00 Test Item Value Reference Range Comments MAGNESIUM (BEAKER) (test lcqw=062) 2.0 mg/dL 1.6-2.6 HEMOGLOBIN AND [id number] 00:22:00 Test Item Value Reference Range Comments HEMOGLOBIN (BEAKER) (test qady=059) 11.0 GM/DL 11.2-15.7 HEMATOCRIT (BEAKER) (test zhem=121) 32.8 % 34.1-44.9 POCT-GLUCOSE [id number] 00:14:00 Test Item Value Reference Range Comments POC-GLUCOSE METER (BEAKER) 143 mg/dL 70-110 TESTED AT [address] (test wrmm=9019) [place] [address] PROTHROMBIN [id number] 21:48:00 Test Item Value Reference Range Comments PROTIME (BEAKER) (test ooai=572) 18.6 seconds 11.7-14.7 INR (BEAKER) (test zvux=013) 1.6 <=5.9 RECOMMENDED COUMADIN/WARFARIN INR THERAPY RANGESSTANDARD DOSE: 2.0 - 3.0 Includes: PROPHYLAXIS forvenous thrombosis, systemic embolization; TREATMENT for venous thrombosis and/or pulmonary embolus.HIGH RISK: Target INR is 2.5-3.5 for patients with mechanical heart valves.HEMOGLOBIN AND [id number] 18 :10:00 Test Item Value Reference Range Comments HEMOGLOBIN (BEAKER) (test tkwl=614) 11.3 GM/DL 11.2-15.7 HEMATOCRIT (BEAKER) (test usic=421) 33.3 % 34.1-44.9 POCT-GLUCOSE [id number] 18:06:00 Test Item Value Reference Range Comments POC-GLUCOSE METER (BEAKER) 207 mg/dL 70-110 TESTED AT [address] (test mtok=4774) [place] [address] RAD, CHEST, 1 VIEW, NON [id number] 15:51:00Reason for exam:->check picc placement Should this be performed at the bedside?->YesFINAL REPORT Chest one view INDICATION: Check PICC placement. COMPARISON: 11/08 IMPRESSION: Right PICC line extends to the SVC. ET tube has been removed. NG tube and left subclavian line are again noted. The cardiomediastinal contours are stable accounting for positioning. Left retrocardiac consolidation or atelectasis is stable with adjacent pleural effusion. Pulmonary vascular congestion has regressed. Mild right basilar atelectasis is improved. No pneumothorax is seen. Signed: Jabari Grace MDReport Verified Date/Time: 11/11/2017 15:51:54 Reading Location: [address] Consult Reading Room BASIC METABOLIC [id number] 15:41:00 Test Item Value Reference Range Comments SODIUM (BEAKER) (test 144 meq/L 136-145 ttms=109) POTASSIUM (BEAKER) (test 3.6 meq/L 3.5-5.1 xduq=896) CHLORIDE (BEAKER) (test 110 meq/L 98-107 jpyy=479) CO2 (BEAKER) (test 26 meq/L 22-29 pacx=124) BLOOD UREA NITROGEN 32 mg/dL 7-21 (BEAKER) (test mwwr=621) CREATININE (BEAKER) (test 0.56 mg/dL 0.57-1.25 qtms=777) GLUCOSE RANDOM (BEAKER) 214 mg/dL 70-105 (test qhmz=287) CALCIUM (BEAKER) (test 7.7 mg/dL 8.4-10.2 hbth=265) EGFR (BEAKER) (test 111 mL/min/1.73 sq m ESTIMATED GFR IS NOT erub=1696) ACCURATE CREATININE CLEARANCE IN PREDICTING GLOMERULAR FILTRATION RATE. ESTIMATED GFR IS NOT APPLICABLE FOR DIALYSIS PATIENTS. [id number] 15:30:00 Test Item Value Reference Range Comments PHOSPHORUS (BEAKER) (test ecrx=043) 2.0 mg/dL 2.3-4.7 [id number] 15:30:00 Test Item Value Reference Range Comments MAGNESIUM (BEAKER) (test dfqz=118) 1.6 mg/dL 1.6-2.6 HEMOGLOBIN AND [id number] 12:57:00 Test Item Value Reference Range Comments HEMOGLOBIN (BEAKER) (test xcfg=385) 12.1 GM/DL 11.2-15.7 HEMATOCRIT (BEAKER) (test dmph=009) 35.6 % 34.1-44.9 POCT-GLUCOSE [id number] 11:30:00 Test Item Value Reference Range Comments POC-GLUCOSE METER (BEAKER) 190 mg/dL 70-110 TESTED AT [address] (test cyav=4920) [facility] [address] PROTHROMBIN [id number] 08:25:00 Test Item Value Reference Range Comments PROTIME (BEAKER) (test hmsv=379) 20.5 seconds 11.7-14.7 INR (BEAKER) (test rvec=022) 1.8 <=5.9 RECOMMENDED COUMADIN/WARFARIN INR THERAPY RANGESSTANDARD DOSE: 2.0 - 3.0 Includes: PROPHYLAXIS forvenous thrombosis, systemic embolization; TREATMENT for venous thrombosis and/or pulmonary embolus.HIGH RISK: Target INR is 2.5-3.5 for patients with mechanical heart valves.POCT-GLUCOSE [id number] 06:16:00 Test Item Value Reference Range Comments POC-GLUCOSE METER (BEAKER) 161 mg/dL 70-110 TESTED AT [address] (test jaol=8723) [facility] [address] CALCIUM, [id number] 04:22:00 Test Item Value Reference Range Comments CALCIUM IONIZED (BEAKER) (test wufx=221) 1.12 mmol/L 1.12-1.27 PH, BLOOD (BEAKER) (test erfs=4262) 7.43 [id number] 04:03:00 Test Item Value Reference Range Comments PREALBUMIN (BEAKER) (test vbll=162) 17 mg/dL 14-45 PROTHROMBIN [id number] 04:02:00 Test Item Value Reference Range Comments PROTIME (BEAKER) (test iken=372) 19.0 seconds 11.7-14.7 INR (BEAKER) (test gaiz=407) 1.6 <=5.9 RECOMMENDED COUMADIN/WARFARIN INR THERAPY RANGESSTANDARD DOSE: 2.0 - 3.0 Includes: PROPHYLAXIS forvenous thrombosis, systemic embolization; TREATMENT for venous thrombosis and/or pulmonary embolus.HIGH RISK: Target INR is 2.5-3.5 for patients with mechanical heart valves.[id number] 04:02:00 Test Item Value Reference Range Comments PROTIME (BEAKER) (test kvdg=343) 19.0 seconds 11.7-14.7 INR (BEAKER) (test quxu=221) 1.6 <=5.9 PARTIAL THROMBOPLASTIN TIME (BEAKER) (test 34.3 seconds 22.5-36.0 nsrl=221) RECOMMENDED COUMADIN/WARFARIN INR THERAPY RANGESSTANDARD DOSE: 2.0 - 3.0 Includes: PROPHYLAXIS forvenous thrombosis, systemic embolization; TREATMENT for venous thrombosis and/or pulmonary embolus.HIGH RISK: Target INR is 2.5-3.5 for patients with mechanical heart valves.[id number] 04:02:00 Test Item Value Reference Range Comments PHOSPHORUS (BEAKER) (test pztp=974) 2.5 mg/dL 2.3-4.7 [id number] 04:02:00 Test Item Value Reference Range Comments MAGNESIUM (BEAKER) (test kkqg=598) 2.1 mg/dL 1.6-2.6 BASIC METABOLIC [id number] 04:02:00 Test Item Value Reference Range Comments SODIUM (BEAKER) (test 146 meq/L 136-145 lgwh=896) POTASSIUM (BEAKER) (test 3.8 meq/L 3.5-5.1 habr=077) CHLORIDE (BEAKER) (test 111 meq/L 98-107 hveb=908) CO2 (BEAKER) (test 27 meq/L 22-29 ynri=568) BLOOD UREA NITROGEN 37 mg/dL 7-21 (BEAKER) (test vhsn=994) CREATININE (BEAKER) (test 0.57 mg/dL 0.57-1.25 dxbt=389) GLUCOSE RANDOM (BEAKER) 157 mg/dL 70-105 (test tecw=966) CALCIUM (BEAKER) (test 8.0 mg/dL 8.4-10.2 jqxw=920) EGFR (BEAKER) (test 109 mL/min/1.73 sq m ESTIMATED GFR IS NOT fhdf=5029) ACCURATE CREATININE CLEARANCE IN PREDICTING GLOMERULAR FILTRATION RATE. ESTIMATED GFR IS NOT APPLICABLE FOR DIALYSIS PATIENTS. CBC W/PLT COUNT & AUTO [id number] 03:50:00 Test Item Value Reference Range Comments WHITE BLOOD CELL COUNT (BEAKER) (test tvtv=780) 23.8 K/ L 3.5-10.5 RED BLOOD CELL COUNT (BEAKER) (test qewk=299) 4.17 M/ L 3.93-5.22 HEMOGLOBIN (BEAKER) (test ijjb=970) 12.4 GM/DL 11.2-15.7 HEMATOCRIT (BEAKER) (test ryuy=109) 36.9 % 34.1-44.9 MEAN CORPUSCULAR VOLUME (BEAKER) (test vicv=680) 88.5 fL 79.4-94.8 MEAN CORPUSCULAR HEMOGLOBIN (BEAKER) (test 29.7 pg 25.6-32.2 izxl=204) MEAN CORPUSCULAR HEMOGLOBIN CONC (BEAKER) (test 33.6 GM/DL 32.2-35.5 gfmw=752) RED CELL DISTRIBUTION WIDTH (BEAKER) (test 16.1 % 11.7-14.4 ldia=998) PLATELET COUNT (BEAKER) (test xlrw=565) 168 K/CU MM 150-450 MEAN PLATELET VOLUME (BEAKER) (test xxin=457) 10.3 fL 9.4-12.3 NUCLEATED RED BLOOD CELLS (BEAKER) (test 0 /100 WBC 0-0 jejm=020) NEUTROPHILS RELATIVE PERCENT (BEAKER) (test 84 % fckg=548) LYMPHOCYTES RELATIVE PERCENT (BEAKER) (test 6 % qzko=181) MONOCYTES RELATIVE PERCENT (BEAKER) (test 7 % eqrz=976) EOSINOPHILS RELATIVE PERCENT (BEAKER) (test 0 % gsaf=642) BASOPHILS RELATIVE PERCENT (BEAKER) (test 0 % vcqw=197) NEUTROPHILS ABSOLUTE COUNT (BEAKER) (test 19.98 K/ L 1.56-6.13 vtky=840) LYMPHOCYTES ABSOLUTE COUNT (BEAKER) (test 1.42 K/ L 1.18-3.74 pjan=298) MONOCYTES ABSOLUTE COUNT (BEAKER) (test 1.75 K/ L 0.24-0.36 zusu=276) EOSINOPHILS ABSOLUTE COUNT (BEAKER) (test 0.08 K/ L 0.04-0.36 ntzz=440) BASOPHILS ABSOLUTE COUNT (BEAKER) (test 0.05 K/ L 0.01-0.08 fsbn=218) IMMATURE GRANULOCYTES-RELATIVE PERCENT (BEAKER) 2 % 0-1 (test wqpu=7846) HEMOGLOBIN AND [id number] 03:48:00 Test Item Value Reference Range Comments HEMOGLOBIN (BEAKER) (test tvfq=858) 12.4 GM/DL 11.2-15.7 HEMATOCRIT (BEAKER) (test zjby=013) 36.9 % 34.1-44.9 HEMOGLOBIN AND [id number] 23:58:00 Test Item Value Reference Range Comments HEMOGLOBIN (BEAKER) (test yyoy=716) 12.2 GM/DL 11.2-15.7 HEMATOCRIT (BEAKER) (test rqvq=904) 35.6 % 34.1-44.9 POCT-GLUCOSE [id number] 23:53:00 Test Item Value Reference Range Comments POC-GLUCOSE METER (BEAKER) 165 mg/dL 70-110 TESTED AT [address] (test gubr=8417) [facility] [id number] PROTHROMBIN [id number] 20:21:00 Test Item Value Reference Range Comments PROTIME (BEAKER) (test dooj=959) 19.6 seconds 11.7-14.7 INR (BEAKER) (test vixy=092) 1.7 <=5.9 RECOMMENDED COUMADIN/WARFARIN INR THERAPY RANGESSTANDARD DOSE: 2.0 - 3.0 Includes: PROPHYLAXIS forvenous thrombosis, systemic embolization; TREATMENT for venous thrombosis and/or pulmonary embolus.HIGH RISK: Target INR is 2.5-3.5 for patients with mechanical heart valves.POCT-GLUCOSE [id number] 18:48:00 Test Item Value Reference Range Comments POC-GLUCOSE METER (BEAKER) 138 mg/dL 70-110 TESTED AT [address] (test dzrt=5986) [place] [id number] HEMOGLOBIN AND [id number] 17:47:00 Test Item Value Reference Range Comments HEMOGLOBIN (BEAKER) (test mjgo=082) 12.2 GM/DL 11.2-15.7 HEMATOCRIT (BEAKER) (test jykz=277) 35.7 % 34.1-44.9 [id number] 16:02:00 Test Item Value Reference Range Comments PHOSPHORUS (BEAKER) (test zdmv=053) 1.3 mg/dL 2.3-4.7 [id number] 15:53:00 Test Item Value Reference Range Comments MAGNESIUM (BEAKER) (test ozvj=920) 1.8 mg/dL 1.6-2.6 BASIC METABOLIC [id number] 15:53:00 Test Item Value Reference Range Comments SODIUM (BEAKER) (test 144 meq/L 136-145 kqlw=425) POTASSIUM (BEAKER) (test 3.4 meq/L 3.5-5.1 cksz=107) CHLORIDE (BEAKER) (test 110 meq/L 98-107 gjrg=637) CO2 (BEAKER) (test 26 meq/L 22-29 znjd=896) BLOOD UREA NITROGEN 42 mg/dL 7-21 (BEAKER) (test rkll=028) CREATININE (BEAKER) (test 0.61 mg/dL 0.57-1.25 xzue=040) GLUCOSE RANDOM (BEAKER) 201 mg/dL 70-105 (test ivai=471) CALCIUM (BEAKER) (test 8.1 mg/dL 8.4-10.2 wjlm=746) EGFR (BEAKER) (test 100 mL/min/1.73 sq m ESTIMATED GFR IS NOT zlhd=6405) ACCURATE CREATININE CLEARANCE IN PREDICTING GLOMERULAR FILTRATION RATE. ESTIMATED GFR IS NOT APPLICABLE FOR DIALYSIS PATIENTS. BLOOD GAS, [id number] 13:15:00 Test Item Value Reference Range Comments PH ARTERIAL (BEAKER) (test avms=059) 7.53 7.35-7.45 PCO2 ARTERIAL (BEAKER) (test kyjt=325) 30 mmHg 35-45 PO2 ARTERIAL (BEAKER) (test jheb=885) 96 mmHg 80-90 O2 SATURATION ARTERIAL (BEAKER) (test wnfg=792) 97.9 % 96.0-97.0 HCO3 ARTERIAL (BEAKER) (test vlok=170) 24 mmol/L 21-29 BASE EXCESS ARTERIAL (BEAKER) (test ydpl=886) 2.3 mmol/L -2.0-3.0 PATIENT TEMPERATURE (BEAKER) (test lcto=4034) 37.5 C FIO2 (BEAKER) (test xgbu=2263) 40.0 % SURGICALLY OBTAINED CULTURE + GRAM [id number] 11:44:00 Test Item Value Reference Range Comments CULTURE (BEAKER) (test rzqd=9938) Amikacin (test code=1) Aztreonam (test code=32) Cefepime (test code=51) Ceftazidime (test code=27) Ciprofloxacin (test code=7) Doripenem (test yhvl=432) Gentamicin (test code=18) Imipenem (test code=19) Levofloxacin (test code=22) Meropenem (test code=34) Piperacillin (test code=24) Piperacillin + Tazobactam (test code=29) Tobramycin (test code=25) CULTURE (BEAKER) (test 1+ Pseudomonas kvym=4315) aeruginosa CULTURE (BEAKER) (test 1+ Maryanne albicans olea=5920) CULTURE (BEAKER) (test 1+ Maryanne tropicalis kmth=6426) GRAM STAIN RESULT (BEAKER) 1+ WBCs (test ukas=8863) GRAM STAIN RESULT (BEAKER) No organisms seen (test emqi=347907) POCT-GLUCOSE [id number] 11:40:00 Test Item Value Reference Range Comments POC-GLUCOSE METER (BEAKER) 156 mg/dL 70-110 TESTED AT [address] (test fyji=5772) [facility] [address] BASIC METABOLIC [id number] 11:38:00 Test Item Value Reference Range Comments SODIUM (BEAKER) (test 144 meq/L 136-145 sihf=114) POTASSIUM (BEAKER) (test 2.8 meq/L 3.5-5.1 Specimen slightly vyzw=114) hemolyzed CHLORIDE (BEAKER) (test 111 meq/L 98-107 cqfn=743) CO2 (BEAKER) (test 26 meq/L 22-29 rlix=899) BLOOD UREA NITROGEN 47 mg/dL 7-21 (BEAKER) (test lmjh=794) CREATININE (BEAKER) (test 0.60 mg/dL 0.57-1.25 Specimen slightly aviy=472) hemolyzed GLUCOSE RANDOM (BEAKER) 184 mg/dL 70-105 (test uyrv=863) CALCIUM (BEAKER) (test 7.9 mg/dL 8.4-10.2 nmyi=864) EGFR (BEAKER) (test 102 mL/min/1.73 sq m ESTIMATED GFR IS NOT wkqe=0865) ACCURATE CREATININE CLEARANCE IN PREDICTING GLOMERULAR FILTRATION RATE. ESTIMATED GFR IS NOT APPLICABLE FOR DIALYSIS PATIENTS. PROTHROMBIN [id number] 11:14:00 Test Item Value Reference Range Comments PROTIME (BEAKER) (test ujyh=163) 18.3 seconds 11.7-14.7 INR (BEAKER) (test tvcy=486) 1.5 <=5.9 RECOMMENDED COUMADIN/WARFARIN INR THERAPY RANGESSTANDARD DOSE: 2.0 - 3.0 Includes: PROPHYLAXIS forvenous thrombosis, systemic embolization; TREATMENT for venous thrombosis and/or pulmonary embolus.HIGH RISK: Target INR is 2.5-3.5 for patients with mechanical heart valves.HEMOGLOBIN AND [id number] 11 :13:00 Test Item Value Reference Range Comments HEMOGLOBIN (BEAKER) (test gero=317) 12.0 GM/DL 11.2-15.7 HEMATOCRIT (BEAKER) (test tzvo=729) 35.9 % 34.1-44.9 [id number] 08:46:00 Test Item Value Reference Range Comments FIBRINOGEN LEVEL (BEAKER) (test whmo=584) 172 mg/dl 225-434 [id number] 08:41:00 Test Item Value Reference Range Comments PROTIME (BEAKER) (test hmqu=416) 20.9 seconds 11.7-14.7 INR (BEAKER) (test jqvc=831) 1.8 <=5.9 PARTIAL THROMBOPLASTIN TIME (BEAKER) (test 35.3 seconds 22.5-36.0 vene=588) RECOMMENDED COUMADIN/WARFARIN INR THERAPY RANGESSTANDARD DOSE: 2.0 - 3.0 Includes: PROPHYLAXIS forvenous thrombosis, systemic embolization; TREATMENT for venous thrombosis and/or pulmonary embolus.HIGH RISK: Target INR is 2.5-3.5 for patients with mechanical heart valves.BLOOD GAS, [id number] 08:33:00 Test Item Value Reference Range Comments PH ARTERIAL (BEAKER) (test tbva=187) 7.38 7.35-7.45 PCO2 ARTERIAL (BEAKER) (test jdwe=561) 49 mmHg 35-45 PO2 ARTERIAL (BEAKER) (test gkaa=788) 210 mmHg 80-90 O2 SATURATION ARTERIAL (BEAKER) (test ganv=958) 99.4 % 96.0-97.0 HCO3 ARTERIAL (BEAKER) (test lfkw=855) 28 mmol/L 21-29 BASE EXCESS ARTERIAL (BEAKER) (test plth=520) 2.8 mmol/L -2.0-3.0 PATIENT TEMPERATURE (BEAKER) (test ilcm=9389) 37.0 C FIO2 (BEAKER) (test mags=9316) 100.0 % GLUCOSE-STAT [id number] 08:33:00 Test Item Value Reference Range Comments GLUCOSE RANDOM (BEAKER) (test vvse=483) 152 mg/dL 70-110 POTASSIUM-STAT [id number] 08:33:00 Test Item Value Reference Range Comments POTASSIUM (BEAKER) (test wrae=597) 3.1 meq/L 3.6-5.5 HGB/HCT (H&H) - STAT [id number] 08:33:00 Test Item Value Reference Range Comments HEMOGLOBIN (BEAKER) (test zrsm=848) 6.9 g/dL 12.0-15.0 HEMATOCRIT (BEAKER) (test fgob=515) 20.0 % 36.0-45.0 CALCIUM, [id number] 08:28:00 Test Item Value Reference Range Comments CALCIUM IONIZED (BEAKER) (test ztkp=749) 1.11 mmol/L 1.12-1.27 PH, BLOOD (BEAKER) (test olxs=3737) 7.38 SODIUM NA-STAT [id number] 08:26:00 Test Item Value Reference Range Comments SODIUM (BEAKER) (test juza=494) 139 meq/L 135-148 VANCOMYCIN LEVEL, [id number] 07:50:00 Test Item Value Reference Range Comments VANCOMYCIN TROUGH (BEAKER) (test umvm=956) 17.2 ug/mL 10.0-20.0 Please draw 30 minutes prior to vancomycin due time. Do not administer if vancomycin trough is >20 mcg/mL. Thank you!POCT-GLUCOSE [id number] 06:16 :00 Test Item Value Reference Range Comments POC-GLUCOSE METER (BEAKER) 188 mg/dL 70-[address] [facility] [address] (test tprf=0481) [place] [address] PROTHROMBIN [id number] 06:02:00 Test Item Value Reference Range Comments PROTIME (BEAKER) (test ebrm=224) 18.9 seconds 11.7-14.7 INR (BEAKER) (test amip=737) 1.6 <=5.9 RECOMMENDED COUMADIN/WARFARIN INR THERAPY RANGESSTANDARD DOSE: 2.0 - 3.0 Includes: PROPHYLAXIS forvenous thrombosis, systemic embolization; TREATMENT for venous thrombosis and/or pulmonary embolus.HIGH RISK: Target INR is 2.5-3.5 for patients with mechanical heart valves.CALCIUM, [id number] 04:50:00 Test Item Value Reference Range Comments CALCIUM IONIZED (BEAKER) (test thga=510) 1.16 mmol/L 1.12-1.27 PH, BLOOD (BEAKER) (test fbij=7299) 7.45 CBC W/PLT COUNT & AUTO [id number] 04:43:00 Test Item Value Reference Range Comments WHITE BLOOD CELL COUNT (BEAKER) (test kuql=078) 19.2 K/ L 3.5-10.5 RED BLOOD CELL COUNT (BEAKER) (test mbty=236) 2.17 M/ L 3.93-5.22 HEMOGLOBIN (BEAKER) (test wvjc=052) 6.6 GM/DL 11.2-15.7 HEMATOCRIT (BEAKER) (test jisw=486) 20.6 % 34.1-44.9 MEAN CORPUSCULAR VOLUME (BEAKER) (test jusr=706) 94.9 fL 79.4-94.8 MEAN CORPUSCULAR HEMOGLOBIN (BEAKER) (test 30.4 pg 25.6-32.2 vrff=126) MEAN CORPUSCULAR HEMOGLOBIN CONC (BEAKER) (test 32.0 GM/DL 32.2-35.5 jaih=199) RED CELL DISTRIBUTION WIDTH (BEAKER) (test 15.5 % 11.7-14.4 kjyq=009) PLATELET COUNT (BEAKER) (test jakl=598) 217 K/CU MM 150-450 MEAN PLATELET VOLUME (BEAKER) (test jbcq=996) 10.4 fL 9.4-12.3 NUCLEATED RED BLOOD CELLS (BEAKER) (test 0 /100 WBC 0-0 ddwt=895) NEUTROPHILS RELATIVE PERCENT (BEAKER) (test 83 % whua=939) LYMPHOCYTES RELATIVE PERCENT (BEAKER) (test 7 % zzvi=438) MONOCYTES RELATIVE PERCENT (BEAKER) (test 7 % dcqw=973) EOSINOPHILS RELATIVE PERCENT (BEAKER) (test 0 % krrs=687) BASOPHILS RELATIVE PERCENT (BEAKER) (test 0 % oork=781) NEUTROPHILS ABSOLUTE COUNT (BEAKER) (test 15.91 K/ L 1.56-6.13 dnae=531) LYMPHOCYTES ABSOLUTE COUNT (BEAKER) (test 1.36 K/ L 1.18-3.74 ffek=927) MONOCYTES ABSOLUTE COUNT (BEAKER) (test 1.41 K/ L 0.24-0.36 cwky=081) EOSINOPHILS ABSOLUTE COUNT (BEAKER) (test 0.01 K/ L 0.04-0.36 ypou=205) BASOPHILS ABSOLUTE COUNT (BEAKER) (test 0.02 K/ L 0.01-0.08 aeei=095) IMMATURE GRANULOCYTES-RELATIVE PERCENT (BEAKER) 2 % 0-1 (test ofgi=2824) [id number] 04:31:00 Test Item Value Reference Range Comments PHOSPHORUS (BEAKER) (test mujj=379) 2.2 mg/dL 2.3-4.7 [id number] 04:31:00 Test Item Value Reference Range Comments MAGNESIUM (BEAKER) (test nkrf=779) 1.9 mg/dL 1.6-2.6 BASIC METABOLIC [id number] 04:31:00 Test Item Value Reference Range Comments SODIUM (BEAKER) (test 146 meq/L 136-145 czsb=095) POTASSIUM (BEAKER) (test 2.8 meq/L 3.5-5.1 vxmv=082) CHLORIDE (BEAKER) (test 109 meq/L 98-107 jrbk=534) CO2 (BEAKER) (test 29 meq/L 22-29 icxt=099) BLOOD UREA NITROGEN 49 mg/dL 7-21 (BEAKER) (test zops=172) CREATININE (BEAKER) (test 0.60 mg/dL 0.57-1.25 lusy=350) GLUCOSE RANDOM (BEAKER) 155 mg/dL 70-105 (test kpra=909) CALCIUM (BEAKER) (test 8.1 mg/dL 8.4-10.2 klsr=188) EGFR (BEAKER) (test 102 mL/min/1.73 sq m ESTIMATED GFR IS NOT wlrw=8185) ACCURATE CREATININE CLEARANCE IN PREDICTING GLOMERULAR FILTRATION RATE. ESTIMATED GFR IS NOT APPLICABLE FOR DIALYSIS PATIENTS. POCT-GLUCOSE [id number] 00:06:00 Test Item Value Reference Range Comments POC-GLUCOSE METER (BEAKER) 168 mg/dL 70-110 TESTED AT [address] (test jcer=0881) [place] [address] PROTHROMBIN [id number] 20:34:00 Test Item Value Reference Range Comments PROTIME (BEAKER) (test zduo=392) 17.1 seconds 11.7-14.7 INR (BEAKER) (test qxov=203) 1.4 <=5.9 RECOMMENDED COUMADIN/WARFARIN INR THERAPY RANGESSTANDARD DOSE: 2.0 - 3.0 Includes: PROPHYLAXIS forvenous thrombosis, systemic embolization; TREATMENT for venous thrombosis and/or pulmonary embolus.HIGH RISK: Target INR is 2.5-3.5 for patients with mechanical heart valves.HEMOGLOBIN AND [id number] 20 :29:00 Test Item Value Reference Range Comments HEMOGLOBIN (BEAKER) (test irfp=567) 8.8 GM/DL 11.2-15.7 HEMATOCRIT (BEAKER) (test jlmw=798) 27.6 % 34.1-44.9 POCT-GLUCOSE [id number] 20:11:00 Test Item Value Reference Range Comments POC-GLUCOSE METER (BEAKER) 193 mg/dL 70-110 TESTED AT [address] (test pnbh=8391) [place] [address] TISSUE [id number] 17:28:00Surgical Pathology Report Case: [id number] Authorizing Provider: Torey Perkins MD Collected: 11/04/2017 1442 Ordering Location: [address] Received: 11/07/2017 0718 Cardiovascular Pathologist: Ze Truong MD Specimen: Small Bowel, NOS SMALL BOWEL, RESECTION: - NECROSIS ASSOCIATED WITH ACUTE AND CHRONIC INFLAMMATION, ULCERATION, COMPATIBLE WITH ISCHEMIC TYPE CHANGES (SEE COMMENT) - MARKED ACUTE AND ORGANIZING SEROSITIS WITH FOREIGN BODY GIANT CELL REACTION - NEGATIVE FOR FUNGAL ELEMENTS BY GMS STAIN - ONE REACTIVE LYMPH NODE Signing Pathologist Direct Phone Line: [phone] signed by Ze Truong MD on 2017 at 5:28 PMNo diagnostic features of inflammatory bowel disease or amyloidosis are seen. No features of vasculitis or thrombi seen in the vessels away from the ulcerated areas. Vessels show mild arterioclerotics change. The histologic findings are not specific. In the appropriate clinical setting, they aremost compatible with ischemic type changes. Clinical correlation is recommended.Intradepartmental consultation: Dr. Tete Mandujano has been consulted on this case and concurs with the diagnosis.[id number], [address]77[address]Foyubjol bowel disease Small bowel The specimen is received in a formalin-filled container labeled with the patient's information and labeled "small bowel biopsy " and consists of a firm unoriented segment of small bowel measuring 16.5 cm in length x 4 cm in circumference. The serosa is morales-red anddull with green exudate. There is a perforation accompanied by many sutures measuring 4 cm in circumference x 0.8 cm in length located 4 and 8.5 cm from the resection margins. The remainder of the small bowel mucosa is unremarkable.Section code: A1. Resection margins en face; A2-A4, area of sutures and perforation. CG/ew A5 tp A9, additional sections of small bowel; A10, fat. CG/pl Performed.[id number] 15:08:00 Test Item Value Reference Range Comments MAGNESIUM (BEAKER) (test come=085) 2.0 mg/dL 1.6-2.6 BASIC METABOLIC [id number] 15:08:00 Test Item Value Reference Range Comments SODIUM (BEAKER) (test 147 meq/L 136-145 cifv=047) POTASSIUM (BEAKER) (test 3.5 meq/L 3.5-5.1 fnfz=981) CHLORIDE (BEAKER) (test 110 meq/L 98-107 wlzq=918) CO2 (BEAKER) (test 29 meq/L 22-29 cmen=636) BLOOD UREA NITROGEN 49 mg/dL 7-21 (BEAKER) (test lptj=798) CREATININE (BEAKER) (test 0.60 mg/dL 0.57-1.25 jeks=667) GLUCOSE RANDOM (BEAKER) 168 mg/dL 70-105 (test tbsg=705) CALCIUM (BEAKER) (test 8.2 mg/dL 8.4-10.2 zxqy=282) EGFR (BEAKER) (test 102 mL/min/1.73 sq m ESTIMATED GFR IS NOT vraj=8697) ACCURATE CREATININE CLEARANCE IN PREDICTING GLOMERULAR FILTRATION RATE. ESTIMATED GFR IS NOT APPLICABLE FOR DIALYSIS PATIENTS. POCT-GLUCOSE [id number] 14:07:00 Test Item Value Reference Range Comments POC-GLUCOSE METER (BEAKER) 174 mg/dL 70-110 TESTED AT [address] (test vxye=6678) [facility] [address] POCT-GLUCOSE [id number] 10:18:00 Test Item Value Reference Range Comments POC-GLUCOSE METER (BEAKER) 176 mg/dL 70-110 TESTED AT [address] (test gzle=6046) [facility] [address] PROTHROMBIN [id number] 09:40:00 Test Item Value Reference Range Comments PROTIME (BEAKER) (test metl=353) 18.7 seconds 11.7-14.7 INR (BEAKER) (test pvef=648) 1.6 <=5.9 RECOMMENDED COUMADIN/WARFARIN INR THERAPY RANGESSTANDARD DOSE: 2.0 - 3.0 Includes: PROPHYLAXIS forvenous thrombosis, systemic embolization; TREATMENT for venous thrombosis and/or pulmonary embolus.HIGH RISK: Target INR is 2.5-3.5 for patients with mechanical heart valves.HEMOGLOBIN AND [id number] 09 :27:00 Test Item Value Reference Range Comments HEMOGLOBIN (BEAKER) (test mxjt=923) 8.9 GM/DL 11.2-15.7 HEMATOCRIT (BEAKER) (test cdrj=607) 27.6 % 34.1-44.9 SEDIMENTATION [id number] 09:18:00 Test Item Value Reference Range Comments SEDIMENTATION RATE, ERYTHROCYTE (BEAKER) (test 26 mm/HR 0-30 dopo=777) CALCIUM, [id number] 05:11:00 Test Item Value Reference Range Comments CALCIUM IONIZED (BEAKER) (test ufpb=695) 1.19 mmol/L 1.12-1.27 PH, BLOOD (BEAKER) (test zlma=0812) 7.41 CBC W/PLT COUNT & AUTO [id number] 04:46:00 Test Item Value Reference Range Comments WHITE BLOOD CELL COUNT (BEAKER) (test uedv=687) 17.4 K/ L 3.5-10.5 RED BLOOD CELL COUNT (BEAKER) (test dysl=210) 2.81 M/ L 3.93-5.22 HEMOGLOBIN (BEAKER) (test tkra=497) 8.6 GM/DL 11.2-15.7 HEMATOCRIT (BEAKER) (test qwmg=546) 26.8 % 34.1-44.9 MEAN CORPUSCULAR VOLUME (BEAKER) (test lvwp=804) 95.4 fL 79.4-94.8 MEAN CORPUSCULAR HEMOGLOBIN (BEAKER) (test 30.6 pg 25.6-32.2 ygtr=946) MEAN CORPUSCULAR HEMOGLOBIN CONC (BEAKER) (test 32.1 GM/DL 32.2-35.5 fnvp=359) RED CELL DISTRIBUTION WIDTH (BEAKER) (test 15.9 % 11.7-14.4 xvxy=456) PLATELET COUNT (BEAKER) (test kwrv=760) 225 K/CU MM 150-450 MEAN PLATELET VOLUME (BEAKER) (test akck=286) 10.6 fL 9.4-12.3 NUCLEATED RED BLOOD CELLS (BEAKER) (test 0 /100 WBC 0-0 navu=347) NEUTROPHILS RELATIVE PERCENT (BEAKER) (test 88 % yjfa=292) LYMPHOCYTES RELATIVE PERCENT (BEAKER) (test 5 % wpng=925) MONOCYTES RELATIVE PERCENT (BEAKER) (test 5 % muhv=772) EOSINOPHILS RELATIVE PERCENT (BEAKER) (test 0 % hyea=705) BASOPHILS RELATIVE PERCENT (BEAKER) (test 0 % isgx=015) NEUTROPHILS ABSOLUTE COUNT (BEAKER) (test 15.38 K/ L 1.56-6.13 whep=704) LYMPHOCYTES ABSOLUTE COUNT (BEAKER) (test 0.84 K/ L 1.18-3.74 nbzl=185) MONOCYTES ABSOLUTE COUNT (BEAKER) (test 0.82 K/ L 0.24-0.36 agxi=684) EOSINOPHILS ABSOLUTE COUNT (BEAKER) (test 0.00 K/ L 0.04-0.36 cxea=896) BASOPHILS ABSOLUTE COUNT (BEAKER) (test 0.02 K/ L 0.01-0.08 nukb=945) IMMATURE GRANULOCYTES-RELATIVE PERCENT (BEAKER) 2 % 0-1 (test rroy=9213) [id number] 04:35:00 Test Item Value Reference Range Comments PHOSPHORUS (BEAKER) (test lbnb=012) 3.0 mg/dL 2.3-4.7 [id number] 04:35:00 Test Item Value Reference Range Comments MAGNESIUM (BEAKER) (test rmob=306) 1.9 mg/dL 1.6-2.6 BASIC METABOLIC [id number] 04:35:00 Test Item Value Reference Range Comments SODIUM (BEAKER) (test 148 meq/L 136-145 qbcb=985) POTASSIUM (BEAKER) (test 2.9 meq/L 3.5-5.1 czcf=848) CHLORIDE (BEAKER) (test 110 meq/L 98-107 hteg=034) CO2 (BEAKER) (test 29 meq/L 22-29 vfba=728) BLOOD UREA NITROGEN 54 mg/dL 7-21 (BEAKER) (test aoqi=380) CREATININE (BEAKER) (test 0.64 mg/dL 0.57-1.25 tvbk=295) GLUCOSE RANDOM (BEAKER) 165 mg/dL 70-105 (test flpg=000) CALCIUM (BEAKER) (test 8.3 mg/dL 8.4-10.2 bost=913) EGFR (BEAKER) (test 95 mL/min/1.73 sq m ESTIMATED GFR IS NOT izuf=5725) ACCURATE CREATININE CLEARANCE IN PREDICTING GLOMERULAR FILTRATION RATE. ESTIMATED GFR IS NOT APPLICABLE FOR DIALYSIS PATIENTS. POCT-GLUCOSE [id number] 00:11:00 Test Item Value Reference Range Comments POC-GLUCOSE METER (BEAKER) 188 mg/dL 70-[address] [facility] [address] [facility] (test wwbz=7290) [facility] [address] PROTHROMBIN [id number] 20:47:00 Test Item Value Reference Range Comments PROTIME (BEAKER) (test qyel=935) 17.2 seconds 11.7-14.7 INR (BEAKER) (test psac=137) 1.4 <=5.9 RECOMMENDED COUMADIN/WARFARIN INR THERAPY RANGESSTANDARD DOSE: 2.0 - 3.0 Includes: PROPHYLAXIS forvenous thrombosis, systemic embolization; TREATMENT for venous thrombosis and/or pulmonary embolus.HIGH RISK: Target INR is 2.5-3.5 for patients with mechanical heart valves.HEMOGLOBIN AND [id number] 20 :41:00 Test Item Value Reference Range Comments HEMOGLOBIN (BEAKER) (test stwx=059) 8.5 GM/DL 11.2-15.7 HEMATOCRIT (BEAKER) (test zxwv=211) 26.0 % 34.1-44.9 POCT-GLUCOSE [id number] 18:26:00 Test Item Value Reference Range Comments POC-GLUCOSE METER (BEAKER) 151 mg/dL 70-[address] [facility] [address] [facility] (test yklg=6371) [facility] [address] BASIC METABOLIC [id number] 15:46:00 Test Item Value Reference Range Comments SODIUM (BEAKER) (test 149 meq/L 136-145 bjrg=904) POTASSIUM (BEAKER) (test 3.9 meq/L 3.5-5.1 skao=518) CHLORIDE (BEAKER) (test 114 meq/L 98-107 mejs=837) CO2 (BEAKER) (test 26 meq/L 22-29 wixg=901) BLOOD UREA NITROGEN 65 mg/dL 7-21 (BEAKER) (test xgfr=245) CREATININE (BEAKER) (test 0.78 mg/dL 0.57-1.25 pplz=026) GLUCOSE RANDOM (BEAKER) 177 mg/dL 70-105 (test zzvf=767) CALCIUM (BEAKER) (test 8.4 mg/dL 8.4-10.2 lufz=531) EGFR (BEAKER) (test 76 mL/min/1.73 sq m ESTIMATED GFR IS NOT kifd=2422) ACCURATE CREATININE CLEARANCE IN PREDICTING GLOMERULAR FILTRATION RATE. ESTIMATED GFR IS NOT APPLICABLE FOR DIALYSIS PATIENTS. PROTHROMBIN [id number] 15:34:00 Test Item Value Reference Range Comments PROTIME (BEAKER) (test wcql=367) 17.6 seconds 11.7-14.7 INR (BEAKER) (test hyyh=968) 1.5 <=5.9 RECOMMENDED COUMADIN/WARFARIN INR THERAPY RANGESSTANDARD DOSE: 2.0 - 3.0 Includes: PROPHYLAXIS forvenous thrombosis, systemic embolization; TREATMENT for venous thrombosis and/or pulmonary embolus.HIGH RISK: Target INR is 2.5-3.5 for patients with mechanical heart valves.HEMOGLOBIN AND [id number] 15 :27:00 Test Item Value Reference Range Comments HEMOGLOBIN (BEAKER) (test bwbx=090) 8.6 GM/DL 11.2-15.7 HEMATOCRIT (BEAKER) (test klpx=531) 26.1 % 34.1-44.9 CMV PCR, [id number] 13:16:00 Test Item Value Reference Range Comments CMV VIRAL LOAD - NEGATIVE Negative or below the linear (BEAKER) (test tfmq=6776) range of the assay (<375 copies/mL) Cytomegalovirus (CMV) infection can cause significant disease in immunosuppressed patients. However,it is common for CMV to manifest as a limited infection which is of no clinical significance in immunosuppressed patients or in healthy individuals.Viral load measurements are helpful to identify clinical CMV infection and to guide the pre-emptive management of antiviral therapy. For treatment of CMVinfection due to reactivation in transplant recipients, a threshold between 4,000 and 5,000 copies/mL is suggested. For treatment of primary CMV infection, a lower threshold can be used.CMV infection may also be monitored using weekly serial measurements. Serial measurements of CMV DNA viral load canbe evaluated by identifying a 10- fold change, as well as assessing the CMV DNA viral load and the clinical context for each patient.The plasma CMV DNA viral load was detected using quantitative polymerase chain reaction and fluorescent monitoring of a specific hybridized probe. Genetic variation and other factors can affect the accuracy of nucleic acid testing. Therefore, the results should be interpreted in light of clinical data. A negative result may not exclude the presence of CMV disease.This test was developed and its performance characteristics determined by the [facility] Pathology Department, Section of Molecular Pathology. It has not been cleared or approved by the U.S. Food and Drug Administration (FDA), since FDA approval is not required for clinical use of the test. Validation was done as required by The Clinical Laboratory Improvement Amendments of 1988.POCT-GLUCOSE [id number] 12:45:00 Test Item Value Reference Range Comments POC-GLUCOSE METER (BEAKER) 213 mg/dL 70-[address] [facility] [address] [facility] (test mjdu=7276) [facility] [address] RAD, CHEST, 1 VIEW, NON [id number] 09:02:00Reason for exam:->ETT placement verificationFINAL REPORT Chest one view INDICATION: ET tube placement COMPARISON: 11/07/2017 IMPRESSION: ET tube terminates 5.5 cm above the balta. NG tube and left subclavian line are againnoted. The cardiomediastinal contours are stable accounting for positioning. Left retrocardiac consolidation or atelectasis has developed with adjacent pleural effusion. There is pulmonary vascular congestion. Mild right basilar opacities suggest atelectasis, possibly with adjacent trace effusion. No pneumothorax is seen. Signed: Jabari Grace MDReport Verified Date/ Time: 11/08/2017 09:02:35 Reading Location: [facility] Radiology Reading Room POCT-GLUCOSE [id number] 06:36:00 Test Item Value Reference Range Comments POC-GLUCOSE METER (BEAKER) 197 mg/dL 70-110 TESTED AT [address] (test cifd=0825) [facility] [address] BLOOD GAS, [id number] 05:35:00 Test Item Value Reference Range Comments PH ARTERIAL (BEAKER) (test vgej=947) 7.41 7.35-7.45 PCO2 ARTERIAL (BEAKER) (test lwnr=573) 42 mmHg 35-45 PO2 ARTERIAL (BEAKER) (test yflf=760) 104 mmHg 80-90 O2 SATURATION ARTERIAL (BEAKER) (test aics=385) 97.8 % 96.0-97.0 HCO3 ARTERIAL (BEAKER) (test hhhe=149) 26 mmol/L 21-29 BASE EXCESS ARTERIAL (BEAKER) (test rvgr=054) 1.1 mmol/L -2.0-3.0 PATIENT TEMPERATURE (BEAKER) (test nhsw=6048) 37.0 C FIO2 (BEAKER) (test fczx=1930) 40.0 % CALCIUM, [id number] 05:19:00 Test Item Value Reference Range Comments CALCIUM IONIZED (BEAKER) (test qkyh=970) 1.24 mmol/L 1.12-1.27 PH, BLOOD (BEAKER) (test haze=3133) 7.41 [id number] 04:52:00 Test Item Value Reference Range Comments PHOSPHORUS (BEAKER) (test gyke=382) 4.4 mg/dL 2.3-4.7 [id number] 04:52:00 Test Item Value Reference Range Comments MAGNESIUM (BEAKER) (test tmrs=721) 2.1 mg/dL 1.6-2.6 BASIC METABOLIC [id number] 04:52:00 Test Item Value Reference Range Comments SODIUM (BEAKER) (test 149 meq/L 136-145 lwxj=075) POTASSIUM (BEAKER) (test 4.8 meq/L 3.5-5.1 ezyu=887) CHLORIDE (BEAKER) (test 115 meq/L 98-107 gsou=132) CO2 (BEAKER) (test 24 meq/L 22-29 jkjs=658) BLOOD UREA NITROGEN 69 mg/dL 7-21 (BEAKER) (test paqk=100) CREATININE (BEAKER) (test 0.88 mg/dL 0.57-1.25 nyma=940) GLUCOSE RANDOM (BEAKER) 180 mg/dL 70-105 (test pxtd=863) CALCIUM (BEAKER) (test 8.6 mg/dL 8.4-10.2 ohpw=261) EGFR (BEAKER) (test 66 mL/min/1.73 sq m ESTIMATED GFR IS NOT tnhk=9328) ACCURATE CREATININE CLEARANCE IN PREDICTING GLOMERULAR FILTRATION RATE. ESTIMATED GFR IS NOT APPLICABLE FOR DIALYSIS PATIENTS. PROTHROMBIN [id number] 04:37:00 Test Item Value Reference Range Comments PROTIME (BEAKER) (test sniu=445) 21.0 seconds 11.7-14.7 INR (BEAKER) (test ellj=092) 1.8 <=5.9 RECOMMENDED COUMADIN/WARFARIN INR THERAPY RANGESSTANDARD DOSE: 2.0 - 3.0 Includes: PROPHYLAXIS forvenous thrombosis, systemic embolization; TREATMENT for venous thrombosis and/or pulmonary embolus.HIGH RISK: Target INR is 2.5-3.5 for patients with mechanical heart valves.CBC W/PLT COUNT & AUTO [id number] 04:36:00 Test Item Value Reference Range Comments WHITE BLOOD CELL COUNT (BEAKER) (test lamt=900) 15.5 K/ L 3.5-10.5 RED BLOOD CELL COUNT (BEAKER) (test uzth=937) 2.93 M/ L 3.93-5.22 HEMOGLOBIN (BEAKER) (test smdx=640) 9.1 GM/DL 11.2-15.7 HEMATOCRIT (BEAKER) (test pskm=117) 27.4 % 34.1-44.9 MEAN CORPUSCULAR VOLUME (BEAKER) (test ewaa=144) 93.5 fL 79.4-94.8 MEAN CORPUSCULAR HEMOGLOBIN (BEAKER) (test 31.1 pg 25.6-32.2 lfzs=554) MEAN CORPUSCULAR HEMOGLOBIN CONC (BEAKER) (test 33.2 GM/DL 32.2-35.5 jmpk=962) RED CELL DISTRIBUTION WIDTH (BEAKER) (test 16.0 % 11.7-14.4 xcyl=948) PLATELET COUNT (BEAKER) (test tfgi=780) 211 K/CU MM 150-450 MEAN PLATELET VOLUME (BEAKER) (test shbl=524) 10.6 fL 9.4-12.3 NUCLEATED RED BLOOD CELLS (BEAKER) (test 0 /100 WBC 0-0 vspq=210) NEUTROPHILS RELATIVE PERCENT (BEAKER) (test 87 % szbh=654) LYMPHOCYTES RELATIVE PERCENT (BEAKER) (test 6 % mirj=033) MONOCYTES RELATIVE PERCENT (BEAKER) (test 3 % ybxx=362) EOSINOPHILS RELATIVE PERCENT (BEAKER) (test 0 % azmg=837) BASOPHILS RELATIVE PERCENT (BEAKER) (test 0 % yruy=259) NEUTROPHILS ABSOLUTE COUNT (BEAKER) (test 13.44 K/ L 1.56-6.13 ahiv=300) LYMPHOCYTES ABSOLUTE COUNT (BEAKER) (test 0.97 K/ L 1.18-3.74 gvaz=579) MONOCYTES ABSOLUTE COUNT (BEAKER) (test 0.40 K/ L 0.24-0.36 ighw=920) EOSINOPHILS ABSOLUTE COUNT (BEAKER) (test 0.00 K/ L 0.04-0.36 rtqq=296) BASOPHILS ABSOLUTE COUNT (BEAKER) (test 0.03 K/ L 0.01-0.08 obel=083) IMMATURE GRANULOCYTES-RELATIVE PERCENT (BEAKER) 4 % 0-1 (test vjgg=1412) HEMOGLOBIN AND [id number] 04:29:00 Test Item Value Reference Range Comments HEMOGLOBIN (BEAKER) (test dkee=728) 9.1 GM/DL 11.2-15.7 HEMATOCRIT (BEAKER) (test ycks=395) 27.4 % 34.1-44.9 POCT-GLUCOSE [id number] 00:24:00 Test Item Value Reference Range Comments POC-GLUCOSE METER (BEAKER) 221 mg/dL 70-110 TESTED AT [address] (test wcwd=3563) [facility] [address] PROTHROMBIN [id number] 22:48:00 Test Item Value Reference Range Comments PROTIME (BEAKER) (test xeol=973) 21.8 seconds 11.7-14.7 INR (BEAKER) (test kgtf=867) 1.9 <=5.9 RECOMMENDED COUMADIN/WARFARIN INR THERAPY RANGESSTANDARD DOSE: 2.0 - 3.0 Includes: PROPHYLAXIS forvenous thrombosis, systemic embolization; TREATMENT for venous thrombosis and/or pulmonary embolus.HIGH RISK: Target INR is 2.5-3.5 for patients with mechanical heart valves.HEMOGLOBIN AND [id number] 22 :41:00 Test Item Value Reference Range Comments HEMOGLOBIN (BEAKER) (test tgtu=278) 9.1 GM/DL 11.2-15.7 HEMATOCRIT (BEAKER) (test omla=732) 27.9 % 34.1-44.9 HIV-1 ANTIGEN WITH HIV-1/2 [id number] 20:14:00 Test Item Value Reference Range Comments HIV-1 ANTIGEN WITH HIV 1\\T\\2 ANTIBODY (2) Nonreactive Nonreactive (BEAKER) (test leoa=8934) POCT-GLUCOSE [id number] 18:39:00 Test Item Value Reference Range Comments POC-GLUCOSE METER (BEAKER) 152 mg/dL 70-110 TESTED AT [place] [id number] [facility] (test aufp=4583) [facility] [address] PROTHROMBIN [id number] 17:42:00 Test Item Value Reference Range Comments PROTIME (BEAKER) (test slfi=908) 21.5 seconds 11.7-14.7 INR (BEAKER) (test tpor=457) 1.9 <=5.9 RECOMMENDED COUMADIN/WARFARIN INR THERAPY RANGESSTANDARD DOSE: 2.0 - 3.0 Includes: PROPHYLAXIS forvenous thrombosis, systemic embolization; TREATMENT for venous thrombosis and/or pulmonary embolus.HIGH RISK: Target INR is 2.5-3.5 for patients with mechanical heart valves.HEMOGLOBIN AND [id number] 17 :33:00 Test Item Value Reference Range Comments HEMOGLOBIN (BEAKER) (test xvkv=973) 9.2 GM/DL 11.2-15.7 HEMATOCRIT (BEAKER) (test txil=841) 27.9 % 34.1-44.9 BASIC METABOLIC [id number] 16:38:00 Test Item Value Reference Range Comments SODIUM (BEAKER) (test 148 meq/L 136-145 egdw=961) POTASSIUM (BEAKER) (test 5.0 meq/L 3.5-5.1 wmfh=238) CHLORIDE (BEAKER) (test 117 meq/L 98-107 asqa=622) CO2 (BEAKER) (test 24 meq/L 22-29 jkcy=232) BLOOD UREA NITROGEN 57 mg/dL 7-21 (BEAKER) (test hxhp=958) CREATININE (BEAKER) (test 0.78 mg/dL 0.57-1.25 wggu=050) GLUCOSE RANDOM (BEAKER) 175 mg/dL 70-105 (test nkes=142) CALCIUM (BEAKER) (test 8.4 mg/dL 8.4-10.2 efxk=761) EGFR (BEAKER) (test 76 mL/min/1.73 sq m ESTIMATED GFR IS NOT cwmj=4037) ACCURATE CREATININE CLEARANCE IN PREDICTING GLOMERULAR FILTRATION RATE. ESTIMATED GFR IS NOT APPLICABLE FOR DIALYSIS PATIENTS. PROTHROMBIN [id number] 16:33:00 Test Item Value Reference Range Comments PROTIME (BEAKER) (test hyci=677) 21.3 seconds 11.7-14.7 INR (BEAKER) (test yijf=798) 1.8 <=5.9 RECOMMENDED COUMADIN/WARFARIN INR THERAPY RANGESSTANDARD DOSE: 2.0 - 3.0 Includes: PROPHYLAXIS forvenous thrombosis, systemic embolization; TREATMENT for venous thrombosis and/or pulmonary embolus.HIGH RISK: Target INR is 2.5-3.5 for patients with mechanical heart valves.HEMOGLOBIN AND [id number] 16 :20:00 Test Item Value Reference Range Comments HEMOGLOBIN (BEAKER) (test opbs=458) 9.3 GM/DL 11.2-15.7 HEMATOCRIT (BEAKER) (test thrm=442) 28.1 % 34.1-44.9 RAD, CHEST, 1 VIEW, NON [id number] 14:22:00Reason for exam:->ETT placement verificationFINAL REPORT AP chest HISTORY: Endotracheal tube placement COMPARISON: 11/05/2007 IMPRESSION:Supportive lines unchanged. Stable cardiac silhouette. Mild pulmonary vascular congestion. Small left effusion. No pneumothorax. Signed: Radha Machuca MDReport Verified Date/ Time: 11/07/2017 14:22:52 Reading Location: [facility] Mammo Reading Room POCT -GLUCOSE [id number] 12:08:00 Test Item Value Reference Range Comments POC-GLUCOSE METER (BEAKER) 168 mg/dL 70-[address] [facility] [address] [facility] (test isgc=3226) [facility] [address] BASIC METABOLIC [id number] 11:57:00 Test Item Value Reference Range Comments SODIUM (BEAKER) (test 147 meq/L 136-145 wruc=432) POTASSIUM (BEAKER) (test 5.2 meq/L 3.5-5.1 uqda=121) CHLORIDE (BEAKER) (test 119 meq/L 98-107 uerz=684) CO2 (BEAKER) (test 21 meq/L 22-29 bliv=682) BLOOD UREA NITROGEN 55 mg/dL 7-21 (BEAKER) (test tfmd=950) CREATININE (BEAKER) (test 0.79 mg/dL 0.57-1.25 bsgh=110) GLUCOSE RANDOM (BEAKER) 158 mg/dL 70-105 (test cprc=340) CALCIUM (BEAKER) (test 8.1 mg/dL 8.4-10.2 krdw=248) EGFR (BEAKER) (test 74 mL/min/1.73 sq m ESTIMATED GFR IS NOT fnqv=9694) ACCURATE CREATININE CLEARANCE IN PREDICTING GLOMERULAR FILTRATION RATE. ESTIMATED GFR IS NOT APPLICABLE FOR DIALYSIS PATIENTS. HEMOGLOBIN AND [id number] 11:36:00 Test Item Value Reference Range Comments HEMOGLOBIN (BEAKER) (test gjmb=085) 9.0 GM/DL 11.2-15.7 HEMATOCRIT (BEAKER) (test sjjb=338) 27.7 % 34.1-44.9 POCT-GLUCOSE [id number] 11:18:00 Test Item Value Reference Range Comments POC-GLUCOSE METER (BEAKER) 183 mg/dL 70-[address] [facility] [address] (test cyxd=5835) [facility] [address] RAD, X-RAY, NO [id number] 10:48:00Reason for exam:->previous retained item Should this be performed at the bedside?->NoFINAL REPORT Radiograph of the abdomen, intraoperative Reason for exam: previous retained item Comparison: No prior Discussion: A feeding tube is present. A surgical drain is seen in the pelvis, along with a rectal tube. No other surgical material identified. Note is made of splenic calcifications. Suture material is also seen in the pelvis. Results were called to the OR. Signed: Neville Kulkarni MDReport Verified Date/Time: 11/07/2017 10:48:17 Reading Location: [address] OrthoConsult Reading Room BASIC METABOLIC [id number] 08:13:00 Test Item Value Reference Range Comments SODIUM (BEAKER) (test 148 meq/L 136-145 vqjs=615) POTASSIUM (BEAKER) (test 4.9 meq/L 3.5-5.1 hwta=741) CHLORIDE (BEAKER) (test 119 meq/L 98-107 agnx=162) CO2 (BEAKER) (test 26 meq/L 22-29 onvw=057) BLOOD UREA NITROGEN 61 mg/dL 7-21 (BEAKER) (test dkjl=832) CREATININE (BEAKER) (test 0.77 mg/dL 0.57-1.25 zgur=756) GLUCOSE RANDOM (BEAKER) 92 mg/dL 70-105 (test ghep=109) CALCIUM (BEAKER) (test 8.3 mg/dL 8.4-10.2 peig=263) EGFR (BEAKER) (test 77 mL/min/1.73 sq m ESTIMATED GFR IS NOT gngc=1394) ACCURATE CREATININE CLEARANCE IN PREDICTING GLOMERULAR FILTRATION RATE. ESTIMATED GFR IS NOT APPLICABLE FOR DIALYSIS PATIENTS. ANAEROBIC [id number] 08:13:00 Test Item Value Reference Range Comments CULTURE (BEAKER) (test prgz=0219) 2+ Lactobacillus species PROTHROMBIN [id number] 07:58:00 Test Item Value Reference Range Comments PROTIME (BEAKER) (test dact=582) 21.8 seconds 11.7-14.7 INR (BEAKER) (test fbey=359) 1.9 <=5.9 RECOMMENDED COUMADIN/WARFARIN INR THERAPY RANGESSTANDARD DOSE: 2.0 - 3.0 Includes: PROPHYLAXIS forvenous thrombosis, systemic embolization; TREATMENT for venous thrombosis and/or pulmonary embolus.HIGH RISK: Target INR is 2.5-3.5 for patients with mechanical heart valves.HEMOGLOBIN AND [id number] 07 :46:00 Test Item Value Reference Range Comments HEMOGLOBIN (BEAKER) (test lzem=895) 8.4 GM/DL 11.2-15.7 HEMATOCRIT (BEAKER) (test jarz=980) 25.4 % 34.1-44.9 BASIC METABOLIC [id number] 04:20:00 Test Item Value Reference Range Comments SODIUM (BEAKER) (test 147 meq/L 136-145 cseg=108) POTASSIUM (BEAKER) (test 5.5 meq/L 3.5-5.1 nlwp=479) CHLORIDE (BEAKER) (test 119 meq/L 98-107 cheh=105) CO2 (BEAKER) (test 23 meq/L 22-29 gnuz=673) BLOOD UREA NITROGEN 63 mg/dL 7-21 (BEAKER) (test sxxr=693) CREATININE (BEAKER) (test 0.83 mg/dL 0.57-1.25 bvoa=421) GLUCOSE RANDOM (BEAKER) 121 mg/dL 70-105 (test izuz=325) CALCIUM (BEAKER) (test 8.3 mg/dL 8.4-10.2 fucl=009) EGFR (BEAKER) (test 70 mL/min/1.73 sq m ESTIMATED GFR IS NOT zoyq=9698) ACCURATE CREATININE CLEARANCE IN PREDICTING GLOMERULAR FILTRATION RATE. ESTIMATED GFR IS NOT APPLICABLE FOR DIALYSIS PATIENTS. [id number] 04:19:00 Test Item Value Reference Range Comments PHOSPHORUS (BEAKER) (test qiva=319) 4.4 mg/dL 2.3-4.7 [id number] 04:19:00 Test Item Value Reference Range Comments MAGNESIUM (BEAKER) (test sxyw=404) 2.1 mg/dL 1.6-2.6 BLOOD GAS, [id number] 04:08:00 Test Item Value Reference Range Comments PH ARTERIAL (BEAKER) (test wvpe=294) 7.30 7.35-7.45 PCO2 ARTERIAL (BEAKER) (test gtbm=509) 50 mmHg 35-45 PO2 ARTERIAL (BEAKER) (test mvnf=392) 144 mmHg 80-90 O2 SATURATION ARTERIAL (BEAKER) (test ryly=753) 98.5 % 96.0-97.0 HCO3 ARTERIAL (BEAKER) (test hkhr=323) 24 mmol/L 21-29 BASE EXCESS ARTERIAL (BEAKER) (test xpmo=207) -2.3 mmol/L -2.0-3.0 PATIENT TEMPERATURE (BEAKER) (test ysvw=6166) 37.6 C FIO2 (BEAKER) (test fptv=2297) 40.0 % CALCIUM, [id number] 04:05:00 Test Item Value Reference Range Comments CALCIUM IONIZED (BEAKER) (test wiub=759) 1.28 mmol/L 1.12-1.27 PH, BLOOD (BEAKER) (test xmrv=0694) 7.31 PROTHROMBIN [id number] 04:02:00 Test Item Value Reference Range Comments PROTIME (BEAKER) (test dyvi=588) 24.4 seconds 11.7-14.7 INR (BEAKER) (test fqri=414) 2.2 <=5.9 RECOMMENDED COUMADIN/WARFARIN INR THERAPY RANGESSTANDARD DOSE: 2.0 - 3.0 Includes: PROPHYLAXIS forvenous thrombosis, systemic embolization; TREATMENT for venous thrombosis and/or pulmonary embolus.HIGH RISK: Target INR is 2.5-3.5 for patients with mechanical heart valves.CBC W/PLT COUNT & AUTO [id number] 04:00:00 Test Item Value Reference Range Comments WHITE BLOOD CELL COUNT (BEAKER) (test nkgt=670) 17.3 K/ L 3.5-10.5 RED BLOOD CELL COUNT (BEAKER) (test nvfq=550) 2.76 M/ L 3.93-5.22 HEMOGLOBIN (BEAKER) (test knap=386) 8.6 GM/DL 11.2-15.7 HEMATOCRIT (BEAKER) (test kwou=534) 26.0 % 34.1-44.9 MEAN CORPUSCULAR VOLUME (BEAKER) (test uoym=489) 94.2 fL 79.4-94.8 MEAN CORPUSCULAR HEMOGLOBIN (BEAKER) (test 31.2 pg 25.6-32.2 ciir=767) MEAN CORPUSCULAR HEMOGLOBIN CONC (BEAKER) (test 33.1 GM/DL 32.2-35.5 xbfl=151) RED CELL DISTRIBUTION WIDTH (BEAKER) (test 15.9 % 11.7-14.4 jkzp=290) PLATELET COUNT (BEAKER) (test abgp=697) 181 K/CU MM 150-450 MEAN PLATELET VOLUME (BEAKER) (test exsb=245) 10.4 fL 9.4-12.3 NUCLEATED RED BLOOD CELLS (BEAKER) (test 0 /100 WBC 0-0 kihy=917) NEUTROPHILS RELATIVE PERCENT (BEAKER) (test 73 % smvb=265) LYMPHOCYTES RELATIVE PERCENT (BEAKER) (test 10 % hsom=564) MONOCYTES RELATIVE PERCENT (BEAKER) (test 8 % kcpf=198) EOSINOPHILS RELATIVE PERCENT (BEAKER) (test 4 % eang=118) BASOPHILS RELATIVE PERCENT (BEAKER) (test 1 % cuze=632) NEUTROPHILS ABSOLUTE COUNT (BEAKER) (test 12.57 K/ L 1.56-6.13 nswr=913) LYMPHOCYTES ABSOLUTE COUNT (BEAKER) (test 1.65 K/ L 1.18-3.74 avua=761) MONOCYTES ABSOLUTE COUNT (BEAKER) (test 1.45 K/ L 0.24-0.36 hpwx=800) EOSINOPHILS ABSOLUTE COUNT (BEAKER) (test 0.76 K/ L 0.04-0.36 oclf=271) BASOPHILS ABSOLUTE COUNT (BEAKER) (test 0.08 K/ L 0.01-0.08 itps=933) IMMATURE GRANULOCYTES-RELATIVE PERCENT (BEAKER) 5 % 0-1 (test duxo=8135) HEMOGLOBIN AND [id number] 03:53:00 Test Item Value Reference Range Comments HEMOGLOBIN (BEAKER) (test evve=296) 8.6 GM/DL 11.2-15.7 HEMATOCRIT (BEAKER) (test lxbm=444) 26.0 % 34.1-44.9 POCT-GLUCOSE [id number] 03:46:00 Test Item Value Reference Range Comments POC-GLUCOSE METER (BEAKER) 125 mg/dL 70-110 TESTED AT [address] (test rbca=1304) [facility] [address] POCT-GLUCOSE [id number] 00:59:00 Test Item Value Reference Range Comments POC-GLUCOSE METER (BEAKER) 106 mg/dL 70-110 TESTED AT [address] (test gczp=4445) [facility] [address] POCT-GLUCOSE [id number] 00:23:00 Test Item Value Reference Range Comments POC-GLUCOSE METER (BEAKER) 55 mg/dL 70-110 Notified EVERARDO GRAHAM/TESTED AT [facility] (test enkj=6975) [address] [place] [address] BASIC METABOLIC [id number] 22:22:00 Test Item Value Reference Range Comments SODIUM (BEAKER) (test 147 meq/L 136-145 pkzh=366) POTASSIUM (BEAKER) (test 5.8 meq/L 3.5-5.1 fxzo=857) CHLORIDE (BEAKER) (test 119 meq/L 98-107 zflz=836) CO2 (BEAKER) (test 21 meq/L 22-29 difc=240) BLOOD UREA NITROGEN 64 mg/dL 7-21 (BEAKER) (test rhdd=049) CREATININE (BEAKER) (test 0.84 mg/dL 0.57-1.25 msru=446) GLUCOSE RANDOM (BEAKER) 68 mg/dL 70-105 (test tbnl=533) CALCIUM (BEAKER) (test 8.3 mg/dL 8.4-10.2 lmmg=807) EGFR (BEAKER) (test 69 mL/min/1.73 sq m ESTIMATED GFR IS NOT mgyi=6293) ACCURATE CREATININE CLEARANCE IN PREDICTING GLOMERULAR FILTRATION RATE. ESTIMATED GFR IS NOT APPLICABLE FOR DIALYSIS PATIENTS. PROTHROMBIN [id number] 22:17:00 Test Item Value Reference Range Comments PROTIME (BEAKER) (test oxai=031) 23.2 seconds 11.7-14.7 INR (BEAKER) (test nqcy=339) 2.1 <=5.9 RECOMMENDED COUMADIN/WARFARIN INR THERAPY RANGESSTANDARD DOSE: 2.0 - 3.0 Includes: PROPHYLAXIS forvenous thrombosis, systemic embolization; TREATMENT for venous thrombosis and/or pulmonary embolus.HIGH RISK: Target INR is 2.5-3.5 for patients with mechanical heart valves.CBC W/PLT COUNT & AUTO [id number] 22:12:00 Test Item Value Reference Range Comments WHITE BLOOD CELL COUNT (BEAKER) (test gfbb=091) 19.6 K/ L 3.5-10.5 RED BLOOD CELL COUNT (BEAKER) (test arto=258) 3.04 M/ L 3.93-5.22 HEMOGLOBIN (BEAKER) (test jzsh=205) 9.3 GM/DL 11.2-15.7 HEMATOCRIT (BEAKER) (test qzos=595) 28.4 % 34.1-44.9 MEAN CORPUSCULAR VOLUME (BEAKER) (test xzjy=379) 93.4 fL 79.4-94.8 MEAN CORPUSCULAR HEMOGLOBIN (BEAKER) (test 30.6 pg 25.6-32.2 vpxg=132) MEAN CORPUSCULAR HEMOGLOBIN CONC (BEAKER) (test 32.7 GM/DL 32.2-35.5 maau=063) RED CELL DISTRIBUTION WIDTH (BEAKER) (test 15.5 % 11.7-14.4 pndg=750) PLATELET COUNT (BEAKER) (test aulk=069) 189 K/CU MM 150-450 MEAN PLATELET VOLUME (BEAKER) (test xgrh=525) 10.1 fL 9.4-12.3 NUCLEATED RED BLOOD CELLS (BEAKER) (test 0 /100 WBC 0-0 adbj=189) NEUTROPHILS RELATIVE PERCENT (BEAKER) (test 71 % bcqf=490) LYMPHOCYTES RELATIVE PERCENT (BEAKER) (test 10 % ivpk=906) MONOCYTES RELATIVE PERCENT (BEAKER) (test 8 % kgfs=412) EOSINOPHILS RELATIVE PERCENT (BEAKER) (test 5 % xaiu=938) BASOPHILS RELATIVE PERCENT (BEAKER) (test 1 % mezg=009) NEUTROPHILS ABSOLUTE COUNT (BEAKER) (test 13.94 K/ L 1.56-6.13 sfiv=718) LYMPHOCYTES ABSOLUTE COUNT (BEAKER) (test 1.96 K/ L 1.18-3.74 vpqh=841) MONOCYTES ABSOLUTE COUNT (BEAKER) (test 1.64 K/ L 0.24-0.36 jcci=743) EOSINOPHILS ABSOLUTE COUNT (BEAKER) (test 1.00 K/ L 0.04-0.36 fzdp=636) BASOPHILS ABSOLUTE COUNT (BEAKER) (test 0.10 K/ L 0.01-0.08 zeuj=734) IMMATURE GRANULOCYTES-RELATIVE PERCENT (BEAKER) 5 % 0-1 (test qfgl=9309) POCT-GLUCOSE [id number] 17:55:00 Test Item Value Reference Range Comments POC-GLUCOSE METER (BEAKER) 129 mg/dL 70-[address] [facility] [address] [facility] (test tbtg=3357) [facility] [address] [id number] 17:04:00 Test Item Value Reference Range Comments PHOSPHORUS (BEAKER) (test xssw=160) 3.8 mg/dL 2.3-4.7 [id number] 17:04:00 Test Item Value Reference Range Comments MAGNESIUM (BEAKER) (test zmcs=539) 2.3 mg/dL 1.6-2.6 BASIC METABOLIC [id number] 17:04:00 Test Item Value Reference Range Comments SODIUM (BEAKER) (test 148 meq/L 136-145 hiez=320) POTASSIUM (BEAKER) (test 5.7 meq/L 3.5-5.1 zmto=284) CHLORIDE (BEAKER) (test 120 meq/L 98-107 pkpj=021) CO2 (BEAKER) (test 22 meq/L 22-29 awbd=396) BLOOD UREA NITROGEN 67 mg/dL 7-21 (BEAKER) (test efef=306) CREATININE (BEAKER) (test 0.84 mg/dL 0.57-1.25 rjyt=541) GLUCOSE RANDOM (BEAKER) 124 mg/dL 70-105 (test xqoj=442) CALCIUM (BEAKER) (test 8.8 mg/dL 8.4-10.2 yxtd=229) EGFR (BEAKER) (test 69 mL/min/1.73 sq m ESTIMATED GFR IS NOT klic=6642) ACCURATE CREATININE CLEARANCE IN PREDICTING GLOMERULAR FILTRATION RATE. ESTIMATED GFR IS NOT APPLICABLE FOR DIALYSIS PATIENTS. PROTHROMBIN [id number] 17:01:00 Test Item Value Reference Range Comments PROTIME (BEAKER) (test epap=110) 24.4 seconds 11.7-14.7 INR (BEAKER) (test nmma=841) 2.2 <=5.9 RECOMMENDED COUMADIN/WARFARIN INR THERAPY RANGESSTANDARD DOSE: 2.0 - 3.0 Includes: PROPHYLAXIS forvenous thrombosis, systemic embolization; TREATMENT for venous thrombosis and/or pulmonary embolus.HIGH RISK: Target INR is 2.5-3.5 for patients with mechanical heart valves.CBC W/PLT COUNT & AUTO [id number] 16:51:00 Test Item Value Reference Range Comments WHITE BLOOD CELL COUNT (BEAKER) (test tmmz=864) 18.6 K/ L 3.5-10.5 RED BLOOD CELL COUNT (BEAKER) (test ouhw=949) 3.08 M/ L 3.93-5.22 HEMOGLOBIN (BEAKER) (test yfnd=343) 9.6 GM/DL 11.2-15.7 HEMATOCRIT (BEAKER) (test ourj=290) 28.1 % 34.1-44.9 MEAN CORPUSCULAR VOLUME (BEAKER) (test tlkg=745) 91.2 fL 79.4-94.8 MEAN CORPUSCULAR HEMOGLOBIN (BEAKER) (test 31.2 pg 25.6-32.2 fjjq=075) MEAN CORPUSCULAR HEMOGLOBIN CONC (BEAKER) (test 34.2 GM/DL 32.2-35.5 tged=203) RED CELL DISTRIBUTION WIDTH (BEAKER) (test 14.9 % 11.7-14.4 fcfs=335) PLATELET COUNT (BEAKER) (test ykrx=425) 181 K/CU MM 150-450 MEAN PLATELET VOLUME (BEAKER) (test zwzb=025) 10.5 fL 9.4-12.3 NUCLEATED RED BLOOD CELLS (BEAKER) (test 0 /100 WBC 0-0 gphk=117) NEUTROPHILS RELATIVE PERCENT (BEAKER) (test 74 % gnui=590) LYMPHOCYTES RELATIVE PERCENT (BEAKER) (test 10 % xxqv=122) MONOCYTES RELATIVE PERCENT (BEAKER) (test 6 % kkuu=006) EOSINOPHILS RELATIVE PERCENT (BEAKER) (test 6 % paqk=108) BASOPHILS RELATIVE PERCENT (BEAKER) (test 1 % nknc=296) NEUTROPHILS ABSOLUTE COUNT (BEAKER) (test 13.79 K/ L 1.56-6.13 thks=921) LYMPHOCYTES ABSOLUTE COUNT (BEAKER) (test 1.76 K/ L 1.18-3.74 vzau=002) MONOCYTES ABSOLUTE COUNT (BEAKER) (test 1.19 K/ L 0.24-0.36 lmyf=442) EOSINOPHILS ABSOLUTE COUNT (BEAKER) (test 1.08 K/ L 0.04-0.36 hktt=207) BASOPHILS ABSOLUTE COUNT (BEAKER) (test 0.11 K/ L 0.01-0.08 davt=367) IMMATURE GRANULOCYTES-RELATIVE PERCENT (BEAKER) 4 % 0-1 (test ksxj=1888) HEMOGLOBIN AND [id number] 16:39:00 Test Item Value Reference Range Comments HEMOGLOBIN (BEAKER) (test kayl=598) 9.6 GM/DL 11.2-15.7 HEMATOCRIT (BEAKER) (test exli=702) 28.1 % 34.1-44.9 CBC W/PLT COUNT & AUTO [id number] 14:49:00 Test Item Value Reference Range Comments WHITE BLOOD CELL COUNT 19.0 K/ L 3.5-10.5 (BEAKER) (test yqnj=124) RED BLOOD CELL COUNT (BEAKER) 3.06 M/ L 3.93-5.22 (test pzma=867) HEMOGLOBIN (BEAKER) (test 9.6 GM/DL 11.2-15.7 dhku=481) HEMATOCRIT (BEAKER) (test 27.9 % 34.1-44.9 ttzz=644) MEAN CORPUSCULAR VOLUME 91.2 fL 79.4-94.8 (BEAKER) (test hbwk=518) MEAN CORPUSCULAR HEMOGLOBIN 31.4 pg 25.6-32.2 (BEAKER) (test maox=991) MEAN CORPUSCULAR HEMOGLOBIN 34.4 GM/DL 32.2-35.5 CONC (BEAKER) (test zvtv=324) RED CELL DISTRIBUTION WIDTH 14.6 % 11.7-14.4 (BEAKER) (test yjgb=243) PLATELET COUNT (BEAKER) (test 172 K/CU MM 150-450 Few large platelets seen on pgur=440) smear. MEAN PLATELET VOLUME (BEAKER) 10.7 fL 9.4-12.3 (test qlqa=806) NUCLEATED RED BLOOD CELLS 0 /100 WBC 0-0 (BEAKER) (test pclu=393) NEUTROPHILS RELATIVE PERCENT 75 % (BEAKER) (test ekur=911) LYMPHOCYTES RELATIVE PERCENT 9 % (BEAKER) (test voie=461) MONOCYTES RELATIVE PERCENT 6 % (BEAKER) (test kknn=265) EOSINOPHILS RELATIVE PERCENT 6 % (BEAKER) (test ocmb=991) BASOPHILS RELATIVE PERCENT 0 % (BEAKER) (test ljwo=175) NEUTROPHILS ABSOLUTE COUNT 14.31 K/ L 1.56-6.13 (BEAKER) (test genb=478) LYMPHOCYTES ABSOLUTE COUNT 1.69 K/ L 1.18-3.74 (BEAKER) (test sbon=056) MONOCYTES ABSOLUTE COUNT 1.14 K/ L 0.24-0.36 (BEAKER) (test enew=452) EOSINOPHILS ABSOLUTE COUNT 1.14 K/ L 0.04-0.36 (BEAKER) (test hvex=009) BASOPHILS ABSOLUTE COUNT 0.07 K/ L 0.01-0.08 (BEAKER) (test skls=499) IMMATURE GRANULOCYTES-RELATIVE 3 % 0-1 PERCENT (BEAKER) (test rarn=0267) PROTHROMBIN [id number] 12:40:00 Test Item Value Reference Range Comments PROTIME (BEAKER) (test bklx=468) 22.2 seconds 11.7-14.7 INR (BEAKER) (test vtyf=309) 2.0 <=5.9 RECOMMENDED COUMADIN/WARFARIN INR THERAPY RANGESSTANDARD DOSE: 2.0 - 3.0 Includes: PROPHYLAXIS forvenous thrombosis, systemic embolization; TREATMENT for venous thrombosis and/or pulmonary embolus.HIGH RISK: Target INR is 2.5-3.5 for patients with mechanical heart valves.POCT-GLUCOSE [id number] 12:17:00 Test Item Value Reference Range Comments POC-GLUCOSE METER (BEAKER) 103 mg/dL 70-[address] [facility] [address] [facility] (test cxrn=0334) [facility] [address] CBC W/PLT COUNT & AUTO [id number] 07:45:00 Test Item Value Reference Range Comments WHITE BLOOD CELL COUNT (BEAKER) (test fnwg=049) 17.7 K/ L 3.5-10.5 RED BLOOD CELL COUNT (BEAKER) (test isqy=951) 2.18 M/ L 3.93-5.22 HEMOGLOBIN (BEAKER) (test rupk=251) 6.8 GM/DL 11.2-15.7 HEMATOCRIT (BEAKER) (test rerb=494) 19.7 % 34.1-44.9 MEAN CORPUSCULAR VOLUME (BEAKER) (test mirp=102) 90.4 fL 79.4-94.8 MEAN CORPUSCULAR HEMOGLOBIN (BEAKER) (test 31.2 pg 25.6-32.2 vcmt=967) MEAN CORPUSCULAR HEMOGLOBIN CONC (BEAKER) (test 34.5 GM/DL 32.2-35.5 hutg=631) RED CELL DISTRIBUTION WIDTH (BEAKER) (test 14.7 % 11.7-14.4 ovhn=809) PLATELET COUNT (BEAKER) (test vmrj=095) 151 K/CU MM 150-450 MEAN PLATELET VOLUME (BEAKER) (test ampr=868) 11.0 fL 9.4-12.3 NUCLEATED RED BLOOD CELLS (BEAKER) (test 0 /100 WBC 0-0 nxpq=780) IMMATURE GRANULOCYTES-RELATIVE PERCENT (BEAKER) 2 % 0-1 (test cqrt=6117) (MANUAL DIFFERENTIAL)2017-11-06 07:45:00 Test Item Value Reference Range Comments NEUTROPHILS - REL (DIFF) (BEAKER) (test 79 % xzlg=0844) LYMPHOCYTES - REL (DIFF) (BEAKER) (test 6 % smch=9379) MONOCYTES - REL (DIFF) (BEAKER) (test icmd=2583) 6 % EOSINOPHILS - REL (DIFF) (BEAKER) (test 6 % bjff=9947) BASOPHILS - REL (DIFF) (BEAKER) (test jrwm=6364) 0 % BANDS - REL (DIFF) (BEAKER) (test jeyr=7808) 3 % 0-10 NEUTROPHILS - ABS (DIFF) (BEAKER) (test 13.98 K/ L 1.80-8.00 ujfs=9291) LYMPHOCYTES - ABS (DIFF) (BEAKER) (test 1.06 K/ L 1.48-4.50 xaii=1059) MONOCYTES - ABS (DIFF) (BEAKER) (test jqsl=6846) 1.06 K/ L 0.00-1.30 EOSINOPHILS - ABS (DIFF) (BEAKER) (test 1.06 K/ L 0.00-0.50 krxw=8179) BASOPHILS - ABS (DIFF) (BEAKER) (test bcin=5054) 0.00 K/ L 0.00-0.20 BANDS-ABS (DIFF) (BEAKER) (test qbvo=7129) 0.5 K/ L 0.0-0.8 TOTAL COUNTED (BEAKER) (test uyxy=1465) 100 BANDS + SEGMENTED NEUTROPHILS (BEAKER) (test 14.51 rlbx=8458) WBC MORPHOLOGY (BEAKER) (test lzcu=072) Normal PLT MORPHOLOGY (BEAKER) (test iqki=598) Normal RBC MORPHOLOGY (BEAKER) (test emet=843) Normal CALCIUM, [id number] 06:41:00 Test Item Value Reference Range Comments CALCIUM IONIZED (BEAKER) (test olve=853) 1.24 mmol/L 1.12-1.27 PH, BLOOD (BEAKER) (test nweb=6419) 7.38 POCT-GLUCOSE [id number] 06:29:00 Test Item Value Reference Range Comments POC-GLUCOSE METER (BEAKER) 149 mg/dL 70-110 TESTED AT [address] (test snvs=4829) [facility] [address] BLOOD GAS, [id number] 04:40:00 Test Item Value Reference Range Comments PH ARTERIAL (BEAKER) (test pgwp=335) 7.38 7.35-7.45 PCO2 ARTERIAL (BEAKER) (test pxsh=452) 43 mmHg 35-45 PO2 ARTERIAL (BEAKER) (test ybvb=289) 213 mmHg 80-90 O2 SATURATION ARTERIAL (BEAKER) (test rvbs=452) 99.4 % 96.0-97.0 HCO3 ARTERIAL (BEAKER) (test eolq=705) 25 mmol/L 21-29 BASE EXCESS ARTERIAL (BEAKER) (test qlpi=770) 0.0 mmol/L -2.0-3.0 PATIENT TEMPERATURE (BEAKER) (test cnbk=1373) 37.0 C FIO2 (BEAKER) (test zmvh=3776) 50.0 % BLOOD GAS, [id number] 04:38:00 Test Item Value Reference Range Comments PH ARTERIAL (BEAKER) (test dtwt=268) 7.38 7.35-7.45 PCO2 ARTERIAL (BEAKER) (test ceqk=202) 43 mmHg 35-45 PO2 ARTERIAL (BEAKER) (test qtib=445) 213 mmHg 80-90 O2 SATURATION ARTERIAL (BEAKER) (test oevj=541) 99.4 % 96.0-97.0 HCO3 ARTERIAL (BEAKER) (test tqlm=899) 25 mmol/L 21-29 BASE EXCESS ARTERIAL (BEAKER) (test ubnv=976) 0.0 mmol/L -2.0-3.0 PATIENT TEMPERATURE (BEAKER) (test pvzn=9185) 37.0 C FIO2 (BEAKER) (test ebiw=7491) 50.0 % [id number] 04:20:00 Test Item Value Reference Range Comments PHOSPHORUS (BEAKER) (test uvil=526) 3.6 mg/dL 2.3-4.7 [id number] 04:20:00 Test Item Value Reference Range Comments MAGNESIUM (BEAKER) (test ukss=672) 2.4 mg/dL 1.6-2.6 BASIC METABOLIC [id number] 04:20:00 Test Item Value Reference Range Comments SODIUM (BEAKER) (test 143 meq/L 136-145 pffs=941) POTASSIUM (BEAKER) (test 5.5 meq/L 3.5-5.1 jona=120) CHLORIDE (BEAKER) (test 114 meq/L 98-107 pobu=340) CO2 (BEAKER) (test 24 meq/L 22-29 vsba=170) BLOOD UREA NITROGEN 74 mg/dL 7-21 (BEAKER) (test blkw=318) CREATININE (BEAKER) (test 0.91 mg/dL 0.57-1.25 boum=022) GLUCOSE RANDOM (BEAKER) 137 mg/dL 70-105 (test hlgp=734) CALCIUM (BEAKER) (test 8.5 mg/dL 8.4-10.2 dlur=121) EGFR (BEAKER) (test 63 mL/min/1.73 sq m ESTIMATED GFR IS NOT qutg=1731) ACCURATE CREATININE CLEARANCE IN PREDICTING GLOMERULAR FILTRATION RATE. ESTIMATED GFR IS NOT APPLICABLE FOR DIALYSIS PATIENTS. PROTHROMBIN TIME/[id number] 04:03:00 Test Item Value Reference Range Comments PROTIME (BEAKER) (test tfat=816) 23.9 seconds 11.7-14.7 INR (BEAKER) (test mmkf=002) 2.1 <=5.9 RECOMMENDED COUMADIN/WARFARIN INR THERAPY RANGESSTANDARD DOSE: 2.0 - 3.0 Includes: PROPHYLAXIS forvenous thrombosis, systemic embolization; TREATMENT for venous thrombosis and/or pulmonary embolus.HIGH RISK: Target INR is 2.5-3.5 for patients with mechanical heart valves.HEMOGLOBIN AND [id number] 04 :02:00 Test Item Value Reference Range Comments HEMOGLOBIN (BEAKER) (test sdyz=961) 6.8 GM/DL 11.2-15.7 HEMATOCRIT (BEAKER) (test lelc=229) 19.7 % 34.1-44.9 POCT-GLUCOSE [id number] 23:57:00 Test Item Value Reference Range Comments POC-GLUCOSE METER (BEAKER) 153 mg/dL 70-[address] [facility] [address] [facility] [facility] (test qqkl=4079) [facility] [address] CBC W/PLT COUNT & AUTO [id number] 21:17:00 Test Item Value Reference Range Comments WHITE BLOOD CELL COUNT (BEAKER) (test ulgu=841) 17.6 K/ L 3.5-10.5 RED BLOOD CELL COUNT (BEAKER) (test fent=643) 2.67 M/ L 3.93-5.22 HEMOGLOBIN (BEAKER) (test cgte=488) 8.1 GM/DL 11.2-15.7 HEMATOCRIT (BEAKER) (test onyo=670) 23.4 % 34.1-44.9 MEAN CORPUSCULAR VOLUME (BEAKER) (test kphu=573) 87.6 fL 79.4-94.8 MEAN CORPUSCULAR HEMOGLOBIN (BEAKER) (test 30.3 pg 25.6-32.2 fcoo=557) MEAN CORPUSCULAR HEMOGLOBIN CONC (BEAKER) (test 34.6 GM/DL 32.2-35.5 sqoy=218) RED CELL DISTRIBUTION WIDTH (BEAKER) (test 14.5 % 11.7-14.4 qzpe=783) PLATELET COUNT (BEAKER) (test vkfl=447) 155 K/CU MM 150-450 MEAN PLATELET VOLUME (BEAKER) (test eizb=392) 10.7 fL 9.4-12.3 NUCLEATED RED BLOOD CELLS (BEAKER) (test 0 /100 WBC 0-0 wste=254) NEUTROPHILS RELATIVE PERCENT (BEAKER) (test 79 % xlfk=376) LYMPHOCYTES RELATIVE PERCENT (BEAKER) (test 10 % xnjl=572) MONOCYTES RELATIVE PERCENT (BEAKER) (test 6 % dvdn=544) EOSINOPHILS RELATIVE PERCENT (BEAKER) (test 4 % epvt=280) BASOPHILS RELATIVE PERCENT (BEAKER) (test 1 % lspl=358) NEUTROPHILS ABSOLUTE COUNT (BEAKER) (test 13.87 K/ L 1.56-6.13 ehnh=644) LYMPHOCYTES ABSOLUTE COUNT (BEAKER) (test 1.71 K/ L 1.18-3.74 bpak=296) MONOCYTES ABSOLUTE COUNT (BEAKER) (test 1.07 K/ L 0.24-0.36 cyrw=204) EOSINOPHILS ABSOLUTE COUNT (BEAKER) (test 0.63 K/ L 0.04-0.36 fjxf=499) BASOPHILS ABSOLUTE COUNT (BEAKER) (test 0.08 K/ L 0.01-0.08 gwqb=941) IMMATURE GRANULOCYTES-RELATIVE PERCENT (BEAKER) 1 % 0-1 (test numg=2083) PROTHROMBIN TIME/[id number] 21:03:00 Test Item Value Reference Range Comments PROTIME (BEAKER) (test drzx=341) 23.0 seconds 11.7-14.7 INR (BEAKER) (test njnw=421) 2.0 <=5.9 RECOMMENDED COUMADIN/WARFARIN INR THERAPY RANGESSTANDARD DOSE: 2.0 - 3.0 Includes: PROPHYLAXIS forvenous thrombosis, systemic embolization; TREATMENT for venous thrombosis and/or pulmonary embolus.HIGH RISK: Target INR is 2.5-3.5 for patients with mechanical heart valves.THROMBOELASTOGRAPH (TEG)2017-11-05 19: 07:00 Test Item Value Reference Range Comments TEG ACTIVATED CLOTTING TIME (BEAKER) (test 8.2 minutes 4.0-7.0 ebvi=9826) TEG FIBRINOGEN ACTIVITY (BEAKER) (test 63.1 degrees 61.0-73.0 uevu=9188) TEG PLT. AGGREGATION (BEAKER) (test fnke=6148) 59.5 MM 55.0-65.0 TEG FIBRINOLYSIS (BEAKER) (test hbzb=9346) 0.0 % 0.0-5.0 TGH ACTIVATED CLOTTING TIME (BEAKER) (test 8.8 minutes 4.0-7.0 rqqa=5708) TGH FIBRINOGEN ACTIVITY (BEAKER) (test 64.5 degrees 61.0-73.0 ajmq=9135) TGH PLT. AGGREGATION (BEAKER) (test ljeu=7927) 50.0 MM 55.0-65.0 TGH FIBRINOLYSIS (BEAKER) (test akly=1450) 0.2 % 0.0-5.0 POCT-GLUCOSE [id number] 17:58:00 Test Item Value Reference Range Comments POC-GLUCOSE METER (BEAKER) 136 mg/dL 70-[address] [facility] [address] [facility] [facility] (test wdtb=3372) [facility] [address] [id number] 16:32:00 Test Item Value Reference Range Comments FIBRINOGEN LEVEL (BEAKER) (test ndfx=169) 260 mg/dl 225-434 [id number] 16:32:00 Test Item Value Reference Range Comments PARTIAL THROMBOPLASTIN TIME (BEAKER) (test 39.9 seconds 22.5-36.0 sezj=185) PROTHROMBIN TIME/[id number] 16:31:00 Test Item Value Reference Range Comments PROTIME (BEAKER) (test mevn=118) 20.9 seconds 11.7-14.7 INR (BEAKER) (test lfwv=334) 1.8 <=5.9 RECOMMENDED COUMADIN/WARFARIN INR THERAPY RANGESSTANDARD DOSE: 2.0 - 3.0 Includes: PROPHYLAXIS forvenous thrombosis, systemic embolization; TREATMENT for venous thrombosis and/or pulmonary embolus.HIGH RISK: Target INR is 2.5-3.5 for patients with mechanical heart valves.CBC (HEMOGRAM ONLY)2017-11-05 16:21:00 Test Item Value Reference Range Comments WHITE BLOOD CELL COUNT (BEAKER) (test djhm=314) 16.7 K/ L 3.5-10.5 RED BLOOD CELL COUNT (BEAKER) (test htnq=749) 2.69 M/ L 3.93-5.22 HEMOGLOBIN (BEAKER) (test udmw=996) 8.2 GM/DL 11.2-15.7 HEMATOCRIT (BEAKER) (test leey=568) 24.1 % 34.1-44.9 MEAN CORPUSCULAR VOLUME (BEAKER) (test rytv=892) 89.6 fL 79.4-94.8 MEAN CORPUSCULAR HEMOGLOBIN (BEAKER) (test 30.5 pg 25.6-32.2 ngil=320) MEAN CORPUSCULAR HEMOGLOBIN CONC (BEAKER) (test 34.0 GM/DL 32.2-35.5 mxrv=990) RED CELL DISTRIBUTION WIDTH (BEAKER) (test 14.6 % 11.7-14.4 oukw=252) PLATELET COUNT (BEAKER) (test qntz=539) 143 K/CU MM 150-450 MEAN PLATELET VOLUME (BEAKER) (test bzxj=559) 10.8 fL 9.4-12.3 NUCLEATED RED BLOOD CELLS (BEAKER) (test 0 /100 WBC 0-0 rdhj=165) CBC W/PLT COUNT & AUTO [id number] 13:14:00 Test Item Value Reference Range Comments WHITE BLOOD CELL COUNT (BEAKER) (test tizw=638) 16.0 K/ L 3.5-10.5 RED BLOOD CELL COUNT (BEAKER) (test eokj=483) 2.52 M/ L 3.93-5.22 HEMOGLOBIN (BEAKER) (test amej=781) 7.5 GM/DL 11.2-15.7 HEMATOCRIT (BEAKER) (test vegk=009) 22.2 % 34.1-44.9 MEAN CORPUSCULAR VOLUME (BEAKER) (test pawp=365) 88.1 fL 79.4-94.8 MEAN CORPUSCULAR HEMOGLOBIN (BEAKER) (test 29.8 pg 25.6-32.2 vepn=150) MEAN CORPUSCULAR HEMOGLOBIN CONC (BEAKER) (test 33.8 GM/DL 32.2-35.5 mjmf=000) RED CELL DISTRIBUTION WIDTH (BEAKER) (test 13.6 % 11.7-14.4 xgmq=170) PLATELET COUNT (BEAKER) (test imyp=037) 149 K/CU MM 150-450 MEAN PLATELET VOLUME (BEAKER) (test kzvl=863) 10.5 fL 9.4-12.3 NUCLEATED RED BLOOD CELLS (BEAKER) (test 0 /100 WBC 0-0 paxm=007) NEUTROPHILS RELATIVE PERCENT (BEAKER) (test 79 % lztd=909) LYMPHOCYTES RELATIVE PERCENT (BEAKER) (test 11 % tseg=964) MONOCYTES RELATIVE PERCENT (BEAKER) (test 7 % rsae=892) EOSINOPHILS RELATIVE PERCENT (BEAKER) (test 1 % skgk=749) BASOPHILS RELATIVE PERCENT (BEAKER) (test 0 % kkox=203) NEUTROPHILS ABSOLUTE COUNT (BEAKER) (test 12.69 K/ L 1.56-6.13 vvno=842) LYMPHOCYTES ABSOLUTE COUNT (BEAKER) (test 1.75 K/ L 1.18-3.74 umuz=207) MONOCYTES ABSOLUTE COUNT (BEAKER) (test 1.11 K/ L 0.24-0.36 tqqs=327) EOSINOPHILS ABSOLUTE COUNT (BEAKER) (test 0.18 K/ L 0.04-0.36 baqf=812) BASOPHILS ABSOLUTE COUNT (BEAKER) (test 0.05 K/ L 0.01-0.08 xasv=309) IMMATURE GRANULOCYTES-RELATIVE PERCENT (BEAKER) 1 % 0-1 (test jdhx=8026) (MANUAL DIFFERENTIAL)2017-11-05 13:14:00 Test Item Value Reference Range Comments TOTAL COUNTED (BEAKER) (test qmqd=3601) WBC MORPHOLOGY (BEAKER) (test ewvk=045) Normal PLT MORPHOLOGY (BEAKER) (test jpcp=477) Normal RBC MORPHOLOGY (BEAKER) (test pead=240) Normal RAD, CHEST, 1 VIEW, NON [id number] 13:01:00Reason for exam:->ETT evaluationShould this be performed at the bedside?->YesFINAL REPORT AP chest HISTORY: Endotracheal tube COMPARISON: 11/01/2007 IMPRESSION:Endotracheal tube appears in satisfactory position. Nasogastric tube also noted. Stable cardiac silhouette. Mild perihilar edema. Small left effusion. No pneumothorax. Signed: Radha Machuca MDReport Verified Date/Time: 11/05/2017 13:01:25 Reading Location: [facility] C013T Transitional Reading Room BASI METABOLIC [id number] 12:55:00 Test Item Value Reference Range Comments SODIUM (BEAKER) (test 142 meq/L 136-145 lgte=347) POTASSIUM (BEAKER) (test 4.8 meq/L 3.5-5.1 sqxp=333) CHLORIDE (BEAKER) (test 112 meq/L 98-107 blxd=260) CO2 (BEAKER) (test 25 meq/L 22-29 pgxg=720) BLOOD UREA NITROGEN 67 mg/dL 7-21 (BEAKER) (test zuat=696) CREATININE (BEAKER) (test 0.90 mg/dL 0.57-1.25 kmva=125) GLUCOSE RANDOM (BEAKER) 141 mg/dL 70-105 (test utfz=167) CALCIUM (BEAKER) (test 7.5 mg/dL 8.4-10.2 bgui=591) EGFR (BEAKER) (test 64 mL/min/1.73 sq m ESTIMATED GFR IS NOT ddoy=5181) ACCURATE CREATININE CLEARANCE IN PREDICTING GLOMERULAR FILTRATION RATE. ESTIMATED GFR IS NOT APPLICABLE FOR DIALYSIS PATIENTS. POCT-GLUCOSE [id number] 12:43:00 Test Item Value Reference Range Comments POC-GLUCOSE METER (BEAKER) 165 mg/dL 70-[address] [facility] [address] [facility] (test ezrw=4909) [facility] [address] [id number] 12:38:00 Test Item Value Reference Range Comments PHOSPHORUS (BEAKER) (test vrdi=978) 4.4 mg/dL 2.3-4.7 [id number] 12:38:00 Test Item Value Reference Range Comments MAGNESIUM (BEAKER) (test xztp=960) 2.2 mg/dL 1.6-2.6 HEPATIC FUNCTION [id number] 12:38:00 Test Item Value Reference Range Comments TOTAL PROTEIN (BEAKER) (test ylut=106) 4.4 gm/dL 6.0-8.3 ALBUMIN (BEAKER) (test yyas=4552) 2.4 g/dL 3.5-5.0 BILIRUBIN TOTAL (BEAKER) (test bqzb=733) 2.0 mg/dL 0.2-1.2 BILIRUBIN DIRECT (BEAKER) (test etwi=133) 1.3 mg/dL 0.1-0.5 ALKALINE PHOSPHATASE (BEAKER) (test mvab=294) 48 U/L 40-150 AST (SGOT) (BEAKER) (test ihkv=846) 13 U/L 5-34 ALT (SGPT) (BEAKER) (test zbmx=481) 9 U/L 6-55 PROTHROMBIN TIME/[id number] 12:18:00 Test Item Value Reference Range Comments PROTIME (BEAKER) (test pxon=472) 21.7 seconds 11.7-14.7 INR (BEAKER) (test oxng=979) 1.9 <=5.9 RECOMMENDED COUMADIN/WARFARIN INR THERAPY RANGESSTANDARD DOSE: 2.0 - 3.0 Includes: PROPHYLAXIS forvenous thrombosis, systemic embolization; TREATMENT for venous thrombosis and/or pulmonary embolus.HIGH RISK: Target INR is 2.5-3.5 for patients with mechanical heart valves.BLOOD GAS, [id number] 12:07:00 Test Item Value Reference Range Comments PH ARTERIAL (BEAKER) (test atxp=719) 7.37 7.35-7.45 PCO2 ARTERIAL (BEAKER) (test oypp=710) 46 mmHg 35-45 PO2 ARTERIAL (BEAKER) (test yxsl=078) 136 mmHg 80-90 O2 SATURATION ARTERIAL (BEAKER) (test bpuj=443) 98.7 % 96.0-97.0 HCO3 ARTERIAL (BEAKER) (test lntn=439) 26 mmol/L 21-29 BASE EXCESS ARTERIAL (BEAKER) (test vlct=390) 0.5 mmol/L -2.0-3.0 PATIENT TEMPERATURE (BEAKER) (test lwsn=1256) 35.6 C FIO2 (BEAKER) (test pwet=8649) 50.0 % CALCIUM, [id number] 12:07:00 Test Item Value Reference Range Comments CALCIUM IONIZED (BEAKER) (test sfmt=549) 1.03 mmol/L 1.12-1.27 PH, BLOOD (BEAKER) (test nxma=2742) 7.35 SURGICALLY OBTAINED CULTURE + GRAM [id number] 11:38:00 Test Item Value Reference Range Comments CULTURE (BEAKER) (test 1+ Same organism has been yuaw=8368) isolated from culture(s) of the same body site and collection date. Repeat identification performed only after consultation with the clinical microbiology laboratory.Refer to previous culture ofCandida tropicalis GRAM STAIN RESULT 1+ WBCs (BEAKER) (test omvz=1831) GRAM STAIN RESULT No organisms seen (BEAKER) (test llef=227520) THROMBOELASTOGRAPH (TEG)2017-11-05 11:25:00 Test Item Value Reference Range Comments TEG ACTIVATED CLOTTING TIME (BEAKER) (test 9.2 minutes 4.0-7.0 rizi=0138) TEG FIBRINOGEN ACTIVITY (BEAKER) (test 55.5 degrees 61.0-73.0 kdxn=6189) TEG PLT. AGGREGATION (BEAKER) (test walx=2734) 58.4 MM 55.0-65.0 TEG FIBRINOLYSIS (BEAKER) (test gpxs=0213) 2.1 % 0.0-5.0 TGH ACTIVATED CLOTTING TIME (BEAKER) (test 9.5 minutes 4.0-7.0 xsow=5638) TGH FIBRINOGEN ACTIVITY (BEAKER) (test 67.0 degrees 61.0-73.0 qoop=3144) TGH PLT. AGGREGATION (BEAKER) (test bboy=2145) 53.7 MM 55.0-65.0 TGH FIBRINOLYSIS (BEAKER) (test mmfs=7110) 0.6 % 0.0-5.0 CBC W/PLT COUNT & AUTO [id number] 10:58:00 Test Item Value Reference Range Comments WHITE BLOOD CELL COUNT 12.6 K/ L 3.5-10.5 (BEAKER) (test ckvp=515) RED BLOOD CELL COUNT (BEAKER) 1.25 M/ L 3.93-5.22 (test luzs=057) HEMOGLOBIN (BEAKER) (test 3.4 GM/DL 11.2-15.7 Discordant result compared igkx=875) to previous result; clinical correlation required. HEMATOCRIT (BEAKER) (test 10.9 % 34.1-44.9 tmoe=693) MEAN CORPUSCULAR VOLUME 87.2 fL 79.4-94.8 (BEAKER) (test hdmp=784) MEAN CORPUSCULAR HEMOGLOBIN 27.2 pg 25.6-32.2 (BEAKER) (test skmq=100) MEAN CORPUSCULAR HEMOGLOBIN 31.2 GM/DL 32.2-35.5 CONC (BEAKER) (test vlrs=723) RED CELL DISTRIBUTION WIDTH 17.1 % 11.7-14.4 (BEAKER) (test myin=621) PLATELET COUNT (BEAKER) (test 233 K/CU MM 150-450 Discordant result compared azju=754) to previous result; clinical correlation required. MEAN PLATELET VOLUME (BEAKER) 10.7 fL 9.4-12.3 (test ipda=349) NUCLEATED RED BLOOD CELLS 0 /100 WBC 0-0 (BEAKER) (test iirt=032) NEUTROPHILS RELATIVE PERCENT 78 % (BEAKER) (test aegn=412) LYMPHOCYTES RELATIVE PERCENT 12 % (BEAKER) (test lbct=847) MONOCYTES RELATIVE PERCENT 8 % (BEAKER) (test xnmz=528) EOSINOPHILS RELATIVE PERCENT 1 % (BEAKER) (test ilrq=546) BASOPHILS RELATIVE PERCENT 0 % (BEAKER) (test najc=285) NEUTROPHILS ABSOLUTE COUNT 9.87 K/ L 1.56-6.13 (BEAKER) (test xjwj=231) LYMPHOCYTES ABSOLUTE COUNT 1.56 K/ L 1.18-3.74 (BEAKER) (test mmld=479) MONOCYTES ABSOLUTE COUNT 0.95 K/ L 0.24-0.36 (BEAKER) (test tkmk=898) EOSINOPHILS ABSOLUTE COUNT 0.08 K/ L 0.04-0.36 (BEAKER) (test soyo=649) BASOPHILS ABSOLUTE COUNT 0.00 K/ L 0.01-0.08 (BEAKER) (test vobx=824) IMMATURE 1 % 0-1 GRANULOCYTES-RELATIVE PERCENT (BEAKER) (test ebqp=8357) (MANUAL DIFFERENTIAL)2017-11-05 10:58:00 Test Item Value Reference Range Comments TOTAL COUNTED (BEAKER) (test zcog=4310) WBC MORPHOLOGY (BEAKER) (test usdf=099) Normal PLT MORPHOLOGY (BEAKER) (test qczm=027) Normal HYPOCHROMIA (BEAKER) (test yini=280) 2+ moderate BASIC METABOLIC [id number] 10:09:00 Test Item Value Reference Range Comments SODIUM (BEAKER) (test 143 meq/L 136-145 hwdx=193) POTASSIUM (BEAKER) (test 5.2 meq/L 3.5-5.1 jzau=376) CHLORIDE (BEAKER) (test 113 meq/L 98-107 zriq=942) CO2 (BEAKER) (test 25 meq/L 22-29 vhtg=893) BLOOD UREA NITROGEN 68 mg/dL 7-21 (BEAKER) (test tvim=943) CREATININE (BEAKER) (test 0.85 mg/dL 0.57-1.25 gojm=779) GLUCOSE RANDOM (BEAKER) 183 mg/dL 70-105 (test tngc=883) CALCIUM (BEAKER) (test 7.6 mg/dL 8.4-10.2 vrjd=326) EGFR (BEAKER) (test 68 mL/min/1.73 sq m ESTIMATED GFR IS NOT lmim=9160) ACCURATE CREATININE CLEARANCE IN PREDICTING GLOMERULAR FILTRATION RATE. ESTIMATED GFR IS NOT APPLICABLE FOR DIALYSIS PATIENTS. [id number] 09:55:00 Test Item Value Reference Range Comments PHOSPHORUS (BEAKER) (test ityb=263) 4.5 mg/dL 2.3-4.7 [id number] 09:55:00 Test Item Value Reference Range Comments MAGNESIUM (BEAKER) (test exyb=705) 2.1 mg/dL 1.6-2.6 [id number] 09:49:00 Test Item Value Reference Range Comments FIBRINOGEN LEVEL (BEAKER) (test zrol=907) 233 mg/dl 225-434 [id number] 09:49:00 Test Item Value Reference Range Comments PARTIAL THROMBOPLASTIN TIME (BEAKER) (test 51.0 seconds 22.5-36.0 eaae=779) PROTHROMBIN [id number] 09:48:00 Test Item Value Reference Range Comments PROTIME (BEAKER) (test docs=083) 22.3 seconds 11.7-14.7 INR (BEAKER) (test pmrh=063) 2.0 <=5.9 RECOMMENDED COUMADIN/WARFARIN INR THERAPY RANGESSTANDARD DOSE: 2.0 - 3.0 Includes: PROPHYLAXIS forvenous thrombosis, systemic embolization; TREATMENT for venous thrombosis and/or pulmonary embolus.HIGH RISK: Target INR is 2.5-3.5 for patients with mechanical heart valves.BLOOD GAS, [id number] 09:43:00 Test Item Value Reference Range Comments PH ARTERIAL (BEAKER) (test wkao=351) 7.37 7.35-7.45 PCO2 ARTERIAL (BEAKER) (test ftip=615) 44 mmHg 35-45 PO2 ARTERIAL (BEAKER) (test bfpm=078) 111 mmHg 80-90 O2 SATURATION ARTERIAL (BEAKER) (test plrk=631) 98.1 % 96.0-97.0 HCO3 ARTERIAL (BEAKER) (test tfjk=808) 25 mmol/L 21-29 BASE EXCESS ARTERIAL (BEAKER) (test muik=908) -0.4 mmol/L -2.0-3.0 PATIENT TEMPERATURE (BEAKER) (test dwvq=1605) 36.1 C FIO2 (BEAKER) (test liaa=3518) 28.0 % HEMOGLOBIN AND [id number] 09:39:00 Test Item Value Reference Range Comments HEMOGLOBIN (BEAKER) (test 9.2 GM/DL 11.2-15.7 Discordant result compared to bbuh=743) previous result; clinical correlation required. HEMATOCRIT (BEAKER) (test 27.3 % 34.1-44.9 tjgx=557) PLATELET [id number] 09:39:00 Test Item Value Reference Range Comments PLATELET COUNT (BEAKER) 153 K/CU MM 150-450 Discordant result compared to (test ttby=553) previous result; clinical correlation required. CBC (HEMOGRAM ONLY)2017-11-05 08:12:00 Test Item Value Reference Range Comments WHITE BLOOD CELL COUNT (BEAKER) (test wgwh=315) 14.6 K/ L 3.5-10.5 RED BLOOD CELL COUNT (BEAKER) (test yxdw=375) 0.86 M/ L 3.93-5.22 HEMOGLOBIN (BEAKER) (test pkxg=525) 2.4 GM/DL 11.2-15.7 HEMATOCRIT (BEAKER) (test qkof=940) 7.5 % 34.1-44.9 MEAN CORPUSCULAR VOLUME (BEAKER) (test disu=880) 87.2 fL 79.4-94.8 MEAN CORPUSCULAR HEMOGLOBIN (BEAKER) (test 27.9 pg 25.6-32.2 acpn=356) MEAN CORPUSCULAR HEMOGLOBIN CONC (BEAKER) (test 32.0 GM/DL 32.2-35.5 znds=002) RED CELL DISTRIBUTION WIDTH (BEAKER) (test 17.2 % 11.7-14.4 ujcr=253) PLATELET COUNT (BEAKER) (test qsyj=251) 207 K/CU MM 150-450 MEAN PLATELET VOLUME (BEAKER) (test bvhk=754) 10.7 fL 9.4-12.3 NUCLEATED RED BLOOD CELLS (BEAKER) (test 0 /100 WBC 0-0 jzsb=577) [id number] 08:04:00 Test Item Value Reference Range Comments FIBRINOGEN LEVEL (BEAKER) (test vnvt=561) 146 mg/dl 225-434 [id number] 08:00:00 Test Item Value Reference Range Comments PARTIAL THROMBOPLASTIN TIME (BEAKER) (test 72.3 seconds 22.5-36.0 nbxj=545) PROTHROMBIN [id number] 07:58:00 Test Item Value Reference Range Comments PROTIME (BEAKER) (test ivgk=929) 31.0 seconds 11.7-14.7 INR (BEAKER) (test dcxk=287) 3.0 <=5.9 RECOMMENDED COUMADIN/WARFARIN INR THERAPY RANGESSTANDARD DOSE: 2.0 - 3.0 Includes: PROPHYLAXIS forvenous thrombosis, systemic embolization; TREATMENT for venous thrombosis and/or pulmonary embolus.HIGH RISK: Target INR is 2.5-3.5 for patients with mechanical heart valves.HGB/HCT (H&H) - STAT [id number] 07:50:00 Test Item Value Reference Range Comments HEMOGLOBIN (BEAKER) (test pbkt=950) 2.6 g/dL 12.0-15.0 HEMATOCRIT (BEAKER) (test ehtk=212) 8.0 % 36.0-45.0 GLUCOSE-STAT [id number] 07:50:00 Test Item Value Reference Range Comments GLUCOSE RANDOM (BEAKER) (test exjj=572) 134 mg/dL 70-110 SODIUM NA-STAT [id number] 07:43:00 Test Item Value Reference Range Comments SODIUM (BEAKER) (test quwb=966) 138 meq/L 135-148 POTASSIUM-STAT [id number] 07:43:00 Test Item Value Reference Range Comments POTASSIUM (BEAKER) (test rlzm=605) 4.6 meq/L 3.6-5.5 POCT-GLUCOSE [id number] 06:26:00 Test Item Value Reference Range Comments POC-GLUCOSE METER (BEAKER) 171 mg/dL 70-[address] [facility] [address] [facility] (test iget=5441) [facility] [address] BASIC METABOLIC [id number] 04:22:00 Test Item Value Reference Range Comments SODIUM (BEAKER) (test 143 meq/L 136-145 zqjw=775) POTASSIUM (BEAKER) (test 4.5 meq/L 3.5-5.1 ifyv=913) CHLORIDE (BEAKER) (test 109 meq/L 98-107 dxno=488) CO2 (BEAKER) (test 28 meq/L 22-29 kmrr=492) BLOOD UREA NITROGEN 67 mg/dL 7-21 (BEAKER) (test wbvw=159) CREATININE (BEAKER) (test 0.94 mg/dL 0.57-1.25 yasc=804) GLUCOSE RANDOM (BEAKER) 141 mg/dL 70-105 (test ummi=296) CALCIUM (BEAKER) (test 7.7 mg/dL 8.4-10.2 dnqn=578) EGFR (BEAKER) (test 61 mL/min/1.73 sq m ESTIMATED GFR IS NOT taog=6832) ACCURATE CREATININE CLEARANCE IN PREDICTING GLOMERULAR FILTRATION RATE. ESTIMATED GFR IS NOT APPLICABLE FOR DIALYSIS PATIENTS. [id number] 04:16:00 Test Item Value Reference Range Comments PHOSPHORUS (BEAKER) (test gmqs=725) 3.8 mg/dL 2.3-4.7 [id number] 04:16:00 Test Item Value Reference Range Comments MAGNESIUM (BEAKER) (test spvf=655) 2.4 mg/dL 1.6-2.6 POCT-GLUCOSE [id number] 00:08:00 Test Item Value Reference Range Comments POC-GLUCOSE METER (BEAKER) 177 mg/dL 70-110 TESTED AT [address] (test fgfc=0520) [place] [address] POCT-GLUCOSE [id number] 18:45:00 Test Item Value Reference Range Comments POC-GLUCOSE METER (BEAKER) 149 mg/dL 70-110 TESTED AT [address] (test lkpd=7151) [place] [address] ANAEROBIC [id number] 18:14:00 Test Item Value Reference Range Comments CULTURE (BEAKER) (test spjq=4482) No anaerobes isolated [id number] 17:23:00 Test Item Value Reference Range Comments PHOSPHORUS (BEAKER) (test lkob=219) 3.7 mg/dL 2.3-4.7 [id number] 17:23:00 Test Item Value Reference Range Comments MAGNESIUM (BEAKER) (test myix=645) 2.1 mg/dL 1.6-2.6 BASIC METABOLIC [id number] 17:23:00 Test Item Value Reference Range Comments SODIUM (BEAKER) (test 145 meq/L 136-145 mblv=522) POTASSIUM (BEAKER) (test 4.2 meq/L 3.5-5.1 ajhl=835) CHLORIDE (BEAKER) (test 107 meq/L 98-107 pfaq=636) CO2 (BEAKER) (test 30 meq/L 22-29 lqgb=412) BLOOD UREA NITROGEN 55 mg/dL 7-21 (BEAKER) (test anwj=109) CREATININE (BEAKER) (test 0.77 mg/dL 0.57-1.25 esyn=414) GLUCOSE RANDOM (BEAKER) 174 mg/dL 70-105 (test hfac=157) CALCIUM (BEAKER) (test 8.8 mg/dL 8.4-10.2 rxme=490) EGFR (BEAKER) (test 77 mL/min/1.73 sq m ESTIMATED GFR IS NOT apaj=0269) ACCURATE CREATININE CLEARANCE IN PREDICTING GLOMERULAR FILTRATION RATE. ESTIMATED GFR IS NOT APPLICABLE FOR DIALYSIS PATIENTS. [id number] 17:15:00 Test Item Value Reference Range Comments PARTIAL THROMBOPLASTIN TIME (BEAKER) (test 47.1 seconds 22.5-36.0 uqbl=985) PROTHROMBIN TIME/[id number] 17:14:00 Test Item Value Reference Range Comments PROTIME (BEAKER) (test njel=991) 21.3 seconds 11.7-14.7 INR (BEAKER) (test csin=307) 1.9 <=5.9 RECOMMENDED COUMADIN/WARFARIN INR THERAPY RANGESSTANDARD DOSE: 2.0 - 3.0 Includes: PROPHYLAXIS forvenous thrombosis, systemic embolization; TREATMENT for venous thrombosis and/or pulmonary embolus.HIGH RISK: Target INR is 2.5-3.5 for patients with mechanical heart valves.CBC W/PLT COUNT & AUTO [id number] 17:05:00 Test Item Value Reference Range Comments WHITE BLOOD CELL COUNT (BEAKER) (test xads=337) 15.2 K/ L 3.5-10.5 RED BLOOD CELL COUNT (BEAKER) (test uzuc=000) 3.35 M/ L 3.93-5.22 HEMOGLOBIN (BEAKER) (test zqcg=753) 8.9 GM/DL 11.2-15.7 HEMATOCRIT (BEAKER) (test zlqv=429) 28.2 % 34.1-44.9 MEAN CORPUSCULAR VOLUME (BEAKER) (test fygz=825) 84.2 fL 79.4-94.8 MEAN CORPUSCULAR HEMOGLOBIN (BEAKER) (test 26.6 pg 25.6-32.2 ytxp=222) MEAN CORPUSCULAR HEMOGLOBIN CONC (BEAKER) (test 31.6 GM/DL 32.2-35.5 oblk=223) RED CELL DISTRIBUTION WIDTH (BEAKER) (test 16.5 % 11.7-14.4 gsyz=170) PLATELET COUNT (BEAKER) (test mcve=465) 464 K/CU MM 150-450 MEAN PLATELET VOLUME (BEAKER) (test orjy=052) 10.0 fL 9.4-12.3 NUCLEATED RED BLOOD CELLS (BEAKER) (test 0 /100 WBC 0-0 rxlf=380) NEUTROPHILS RELATIVE PERCENT (BEAKER) (test 75 % uiqv=560) LYMPHOCYTES RELATIVE PERCENT (BEAKER) (test 14 % vinm=046) MONOCYTES RELATIVE PERCENT (BEAKER) (test 6 % azfb=596) EOSINOPHILS RELATIVE PERCENT (BEAKER) (test 3 % zggw=483) BASOPHILS RELATIVE PERCENT (BEAKER) (test 1 % tknd=683) NEUTROPHILS ABSOLUTE COUNT (BEAKER) (test 11.32 K/ L 1.56-6.13 wydu=888) LYMPHOCYTES ABSOLUTE COUNT (BEAKER) (test 2.09 K/ L 1.18-3.74 tnnx=580) MONOCYTES ABSOLUTE COUNT (BEAKER) (test 0.88 K/ L 0.24-0.36 gjjo=943) EOSINOPHILS ABSOLUTE COUNT (BEAKER) (test 0.41 K/ L 0.04-0.36 fesv=627) BASOPHILS ABSOLUTE COUNT (BEAKER) (test 0.10 K/ L 0.01-0.08 akya=646) IMMATURE GRANULOCYTES-RELATIVE PERCENT (BEAKER) 3 % 0-1 (test ihuk=4359) BLOOD GAS, [id number] 14:57:00 Test Item Value Reference Range Comments PH ARTERIAL (BEAKER) (test fzub=089) 7.41 7.35-7.45 PCO2 ARTERIAL (BEAKER) (test vsjj=570) 55 mmHg 35-45 PO2 ARTERIAL (BEAKER) (test ooqi=743) 202 mmHg 80-90 O2 SATURATION ARTERIAL (BEAKER) (test mgte=824) 99.4 % 96.0-97.0 HCO3 ARTERIAL (BEAKER) (test zjqp=033) 34 mmol/L 21-29 BASE EXCESS ARTERIAL (BEAKER) (test hnbj=876) 8.0 mmol/L -2.0-3.0 PATIENT TEMPERATURE (BEAKER) (test ixwj=2154) 37.0 C FIO2 (BEAKER) (test budx=1212) 100.0 % GLUCOSE-STAT [id number] 14:57:00 Test Item Value Reference Range Comments GLUCOSE RANDOM (BEAKER) (test plji=633) 149 mg/dL 70-110 HGB/HCT (H&H) - STAT [id number] 14:57:00 Test Item Value Reference Range Comments HEMOGLOBIN (BEAKER) (test uxrw=686) 6.9 g/dL 12.0-15.0 HEMATOCRIT (BEAKER) (test obsd=071) 20.0 % 36.0-45.0 CALCIUM, [id number] 14:57:00 Test Item Value Reference Range Comments CALCIUM IONIZED (BEAKER) (test vbgj=490) 1.09 mmol/L 1.12-1.27 PH, BLOOD (BEAKER) (test inpf=3227) 7.41 SODIUM NA-STAT [id number] 14:56:00 Test Item Value Reference Range Comments SODIUM (BEAKER) (test sacd=356) 141 meq/L 135-148 POTASSIUM-STAT [id number] 14:56:00 Test Item Value Reference Range Comments POTASSIUM (BEAKER) (test rjtd=909) 3.6 meq/L 3.6-5.5 POCT-GLUCOSE [id number] 11:52:00 Test Item Value Reference Range Comments POC-GLUCOSE METER (BEAKER) 150 mg/dL 70-[address] [facility] [address] [facility] (test lzjm=0700) [facility] [address] PROTEIN, 24 HOUR [id number] 08:38:00 Test Item Value Reference Range Comments PROTEIN, 24HR URINE (BEAKER) (test izuw=1695) 372 mg/24hr 0-300 VOLUME, TOTAL (BEAKER) (test lvrg=8501) 2325 ml PROTEIN, URINE (BEAKER) (test ieal=7218) 16 mg/dL 0-14 POCT-GLUCOSE [id number] 07:58:00 Test Item Value Reference Range Comments POC-GLUCOSE METER (BEAKER) 170 mg/dL 70-[address] [facility] [address] (test rmbw=8084) [place] [address] [id number] 05:09:00 Test Item Value Reference Range Comments PHOSPHORUS (BEAKER) (test krhz=031) 3.5 mg/dL 2.3-4.7 [id number] 05:09:00 Test Item Value Reference Range Comments MAGNESIUM (BEAKER) (test mucp=849) 1.9 mg/dL 1.6-2.6 BASIC METABOLIC [id number] 05:09:00 Test Item Value Reference Range Comments SODIUM (BEAKER) (test 145 meq/L 136-145 atoi=635) POTASSIUM (BEAKER) (test 3.6 meq/L 3.5-5.1 ygkz=747) CHLORIDE (BEAKER) (test 103 meq/L 98-107 yagh=412) CO2 (BEAKER) (test 35 meq/L 22-29 soyi=190) BLOOD UREA NITROGEN 56 mg/dL 7-21 (BEAKER) (test sgfp=159) CREATININE (BEAKER) (test 0.75 mg/dL 0.57-1.25 suyl=622) GLUCOSE RANDOM (BEAKER) 141 mg/dL 70-105 (test ukyc=516) CALCIUM (BEAKER) (test 7.9 mg/dL 8.4-10.2 bges=343) EGFR (BEAKER) (test 79 mL/min/1.73 sq m ESTIMATED GFR IS NOT oszt=6365) ACCURATE CREATININE CLEARANCE IN PREDICTING GLOMERULAR FILTRATION RATE. ESTIMATED GFR IS NOT APPLICABLE FOR DIALYSIS PATIENTS. CBC W/PLT COUNT & AUTO [id number] 05:00:00 Test Item Value Reference Range Comments WHITE BLOOD CELL COUNT (BEAKER) (test dgtf=844) 17.6 K/ L 3.5-10.5 RED BLOOD CELL COUNT (BEAKER) (test kzjh=368) 2.83 M/ L 3.93-5.22 HEMOGLOBIN (BEAKER) (test brga=014) 7.6 GM/DL 11.2-15.7 HEMATOCRIT (BEAKER) (test mmvr=320) 24.7 % 34.1-44.9 MEAN CORPUSCULAR VOLUME (BEAKER) (test nolq=174) 87.3 fL 79.4-94.8 MEAN CORPUSCULAR HEMOGLOBIN (BEAKER) (test 26.9 pg 25.6-32.2 tvhf=276) MEAN CORPUSCULAR HEMOGLOBIN CONC (BEAKER) (test 30.8 GM/DL 32.2-35.5 hnsm=322) RED CELL DISTRIBUTION WIDTH (BEAKER) (test 17.3 % 11.7-14.4 tzem=363) PLATELET COUNT (BEAKER) (test vatu=247) 530 K/CU MM 150-450 MEAN PLATELET VOLUME (BEAKER) (test fdcj=460) 9.8 fL 9.4-12.3 NUCLEATED RED BLOOD CELLS (BEAKER) (test 0 /100 WBC 0-0 pgsk=340) NEUTROPHILS RELATIVE PERCENT (BEAKER) (test 77 % ecbi=042) LYMPHOCYTES RELATIVE PERCENT (BEAKER) (test 12 % jcbj=239) MONOCYTES RELATIVE PERCENT (BEAKER) (test 8 % lpbo=269) EOSINOPHILS RELATIVE PERCENT (BEAKER) (test 1 % yakl=144) BASOPHILS RELATIVE PERCENT (BEAKER) (test 1 % ymsb=038) NEUTROPHILS ABSOLUTE COUNT (BEAKER) (test 13.50 K/ L 1.56-6.13 lyli=844) LYMPHOCYTES ABSOLUTE COUNT (BEAKER) (test 2.10 K/ L 1.18-3.74 cbsl=710) MONOCYTES ABSOLUTE COUNT (BEAKER) (test 1.48 K/ L 0.24-0.36 qpzy=665) EOSINOPHILS ABSOLUTE COUNT (BEAKER) (test 0.22 K/ L 0.04-0.36 fcmr=289) BASOPHILS ABSOLUTE COUNT (BEAKER) (test 0.12 K/ L 0.01-0.08 sefx=298) IMMATURE GRANULOCYTES-RELATIVE PERCENT (BEAKER) 1 % 0-1 (test ecbt=1381) PROTHROMBIN [id number] 04:47:00 Test Item Value Reference Range Comments PROTIME (BEAKER) (test txnj=981) 21.6 seconds 11.7-14.7 INR (BEAKER) (test fhkw=130) 1.9 <=5.9 RECOMMENDED COUMADIN/WARFARIN INR THERAPY RANGESSTANDARD DOSE: 2.0 - 3.0 Includes: PROPHYLAXIS forvenous thrombosis, systemic embolization; TREATMENT for venous thrombosis and/or pulmonary embolus.HIGH RISK: Target INR is 2.5-3.5 for patients with mechanical heart valves.POCT-GLUCOSE [id number] 02:38:00 Test Item Value Reference Range Comments POC-GLUCOSE METER (BEAKER) 167 mg/dL 70-110 TESTED AT [address] (test xest=6020) [place] [id number] POCT-GLUCOSE [id number] 17:37:00 Test Item Value Reference Range Comments POC-GLUCOSE METER (BEAKER) 141 mg/dL 70-110 TESTED AT [address] (test jwkl=0557) [place] [address] BLOOD [id number] 17:00:00 Test Item Value Reference Range Comments CULTURE (BEAKER) (test uihe=8606) No growth in 5 days BLOOD [id number] 17:00:00 Test Item Value Reference Range Comments CULTURE (BEAKER) (test pusu=3167) No growth in 5 days RAD, ABDOMEN/KUB, 1 VIEW [id number] 12:10:00Reason for exam:->NG placementFINAL REPORT Abdomen one view shows NG tube extending to the gastric body level. Signed: Jaiden Santana Verified Date /Time: 11/03/2017 12:10:21 Reading Location: [facility] Reading Room POCT-GLUCOSE [id number] 11:45:00 Test Item Value Reference Range Comments POC-GLUCOSE METER (BEAKER) 149 mg/dL 70-110 TESTED AT [address] (test zwjs=4915) [place] [id number] POCT-GLUCOSE [id number] 07:20:00 Test Item Value Reference Range Comments POC-GLUCOSE METER (BEAKER) 157 mg/dL 70-110 TESTED AT [address] (test pvsh=7676) [place] [address] BASIC METABOLIC [id number] 05:35:00 Test Item Value Reference Range Comments SODIUM (BEAKER) (test 150 meq/L 136-145 wlse=026) POTASSIUM (BEAKER) (test 4.2 meq/L 3.5-5.1 lbei=913) CHLORIDE (BEAKER) (test 106 meq/L 98-107 ewxg=025) CO2 (BEAKER) (test 35 meq/L 22-29 glmp=048) BLOOD UREA NITROGEN 53 mg/dL 7-21 (BEAKER) (test axbx=583) CREATININE (BEAKER) (test 0.78 mg/dL 0.57-1.25 jnle=644) GLUCOSE RANDOM (BEAKER) 124 mg/dL 70-105 (test ddnt=218) CALCIUM (BEAKER) (test 7.9 mg/dL 8.4-10.2 vunl=566) EGFR (BEAKER) (test 76 mL/min/1.73 sq m ESTIMATED GFR IS NOT kxxq=5581) ACCURATE CREATININE CLEARANCE IN PREDICTING GLOMERULAR FILTRATION RATE. ESTIMATED GFR IS NOT APPLICABLE FOR DIALYSIS PATIENTS. [id number] 05:32:00 Test Item Value Reference Range Comments PHOSPHORUS (BEAKER) (test vpht=219) 3.6 mg/dL 2.3-4.7 [id number] 05:32:00 Test Item Value Reference Range Comments MAGNESIUM (BEAKER) (test rwtm=317) 2.0 mg/dL 1.6-2.6 CBC W/PLT COUNT & AUTO [id number] 05:26:00 Test Item Value Reference Range Comments WHITE BLOOD CELL COUNT (BEAKER) (test brwd=333) 16.8 K/ L 3.5-10.5 RED BLOOD CELL COUNT (BEAKER) (test yedu=579) 2.90 M/ L 3.93-5.22 HEMOGLOBIN (BEAKER) (test rrcg=283) 7.8 GM/DL 11.2-15.7 HEMATOCRIT (BEAKER) (test cvok=052) 25.4 % 34.1-44.9 MEAN CORPUSCULAR VOLUME (BEAKER) (test jlpp=764) 87.6 fL 79.4-94.8 MEAN CORPUSCULAR HEMOGLOBIN (BEAKER) (test 26.9 pg 25.6-32.2 assk=266) MEAN CORPUSCULAR HEMOGLOBIN CONC (BEAKER) (test 30.7 GM/DL 32.2-35.5 bmmf=262) RED CELL DISTRIBUTION WIDTH (BEAKER) (test 17.1 % 11.7-14.4 fwzl=695) PLATELET COUNT (BEAKER) (test wvwo=178) 523 K/CU MM 150-450 MEAN PLATELET VOLUME (BEAKER) (test bokv=981) 9.8 fL 9.4-12.3 NUCLEATED RED BLOOD CELLS (BEAKER) (test 0 /100 WBC 0-0 dsdw=028) NEUTROPHILS RELATIVE PERCENT (BEAKER) (test 71 % luzf=755) LYMPHOCYTES RELATIVE PERCENT (BEAKER) (test 13 % agpx=901) MONOCYTES RELATIVE PERCENT (BEAKER) (test 8 % cafb=895) EOSINOPHILS RELATIVE PERCENT (BEAKER) (test 6 % fitf=391) BASOPHILS RELATIVE PERCENT (BEAKER) (test 1 % nswh=185) NEUTROPHILS ABSOLUTE COUNT (BEAKER) (test 11.98 K/ L 1.56-6.13 hixn=413) LYMPHOCYTES ABSOLUTE COUNT (BEAKER) (test 2.15 K/ L 1.18-3.74 pnuj=442) MONOCYTES ABSOLUTE COUNT (BEAKER) (test 1.40 K/ L 0.24-0.36 iada=787) EOSINOPHILS ABSOLUTE COUNT (BEAKER) (test 0.96 K/ L 0.04-0.36 hznq=198) BASOPHILS ABSOLUTE COUNT (BEAKER) (test 0.15 K/ L 0.01-0.08 dzzm=424) IMMATURE GRANULOCYTES-RELATIVE PERCENT (BEAKER) 1 % 0-1 (test uqce=5529) POCT-GLUCOSE [id number] 00:53:00 Test Item Value Reference Range Comments POC-GLUCOSE METER (BEAKER) 136 mg/dL 70-110 TESTED AT [address] (test tgjx=8991) [place] [id number] POCT-GLUCOSE [id number] 18:41:00 Test Item Value Reference Range Comments POC-GLUCOSE METER (BEAKER) 131 mg/dL 70-110 TESTED AT [address] (test djod=0875) [place] [id number] SPIN/CONCENTRATION [id number] 15:10:00 Test Item Value Reference Range Comments CONCENTRATION CHARGED (BEAKER) (test live=4292) Done SPIN/CONCENTRATION [id number] 15:10:00 Test Item Value Reference Range Comments CONCENTRATION CHARGED (BEAKER) (test alpn=8479) Done VANCOMYCIN LEVEL, [id number] 13:24:00 Test Item Value Reference Range Comments VANCOMYCIN TROUGH (BEAKER) (test unyk=297) 11.9 ug/mL 10.0-20.0 Please draw 30 minutes prior to vancomycin due time. Do not administer if vancomycin trough is >20 mcg/mL. Thank you!POCT-GLUCOSE [id number] 13:23 :00 Test Item Value Reference Range Comments POC-GLUCOSE METER (BEAKER) 140 mg/dL 70-[address] 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 Other organisms and resistance markers not contained in this PCR panel cannot be excluded and follow-up of traditional culture results is required. This sample was tested at the [facility] Clinical Microbiology Laboratory using the [employer] Blood Culture ID Panel.This test is FDA cleared for in vitro diagnostic use and has been verified and approved by the [facility] for clinical use. Reference Range: Not DetectedBASI METABOLIC [id number] 06:02:00 Test Item Value Reference Range Comments SODIUM (BEAKER) (test 145 meq/L 136-145 utry=483) POTASSIUM (BEAKER) (test 4.3 meq/L 3.5-5.1 qddw=333) CHLORIDE (BEAKER) (test 104 meq/L 98-107 yupv=734) CO2 (BEAKER) (test 35 meq/L 22-29 mhkv=452) BLOOD UREA NITROGEN 52 mg/dL 7-21 (BEAKER) (test lxta=819) CREATININE (BEAKER) (test 0.99 mg/dL 0.57-1.25 tbeu=359) GLUCOSE RANDOM (BEAKER) 146 mg/dL 70-105 (test stxj=516) CALCIUM (BEAKER) (test 7.7 mg/dL 8.4-10.2 fnts=514) EGFR (BEAKER) (test 57 mL/min/1.73 sq m ESTIMATED GFR IS NOT hjgm=4590) ACCURATE CREATININE CLEARANCE IN PREDICTING GLOMERULAR FILTRATION RATE. ESTIMATED GFR IS NOT APPLICABLE FOR DIALYSIS PATIENTS. [id number] 06:01:00 Test Item Value Reference Range Comments PHOSPHORUS (BEAKER) (test xiyf=293) 2.9 mg/dL 2.3-4.7 [id number] 06:01:00 Test Item Value Reference Range Comments MAGNESIUM (BEAKER) (test jsaf=786) 2.3 mg/dL 1.6-2.6 POCT-GLUCOSE [id number] 05:59:00 Test Item Value Reference Range Comments POC-GLUCOSE METER (BEAKER) 153 mg/dL 70-[address] [facility] [address] [facility] (test riid=7928) [facility] [address] CBC W/PLT COUNT & AUTO [id number] 05:40:00 Test Item Value Reference Range Comments WHITE BLOOD CELL COUNT (BEAKER) (test bvbk=047) 21.1 K/ L 3.5-10.5 RED BLOOD CELL COUNT (BEAKER) (test wlgs=708) 3.05 M/ L 3.93-5.22 HEMOGLOBIN (BEAKER) (test hgmt=811) 8.2 GM/DL 11.2-15.7 HEMATOCRIT (BEAKER) (test tbce=661) 26.0 % 34.1-44.9 MEAN CORPUSCULAR VOLUME (BEAKER) (test xkow=506) 85.2 fL 79.4-94.8 MEAN CORPUSCULAR HEMOGLOBIN (BEAKER) (test 26.9 pg 25.6-32.2 owac=680) MEAN CORPUSCULAR HEMOGLOBIN CONC (BEAKER) (test 31.5 GM/DL 32.2-35.5 yhlg=900) RED CELL DISTRIBUTION WIDTH (BEAKER) (test 16.9 % 11.7-14.4 glkt=559) PLATELET COUNT (BEAKER) (test lyyc=763) 537 K/CU MM 150-450 MEAN PLATELET VOLUME (BEAKER) (test crzf=298) 9.8 fL 9.4-12.3 NUCLEATED RED BLOOD CELLS (BEAKER) (test 0 /100 WBC 0-0 fiqm=803) NEUTROPHILS RELATIVE PERCENT (BEAKER) (test 82 % oryy=633) LYMPHOCYTES RELATIVE PERCENT (BEAKER) (test 9 % ripo=852) MONOCYTES RELATIVE PERCENT (BEAKER) (test 8 % jtyj=072) EOSINOPHILS RELATIVE PERCENT (BEAKER) (test 0 % lizq=296) BASOPHILS RELATIVE PERCENT (BEAKER) (test 1 % lley=203) NEUTROPHILS ABSOLUTE COUNT (BEAKER) (test 17.30 K/ L 1.56-6.13 gtis=151) LYMPHOCYTES ABSOLUTE COUNT (BEAKER) (test 1.86 K/ L 1.18-3.74 xzzy=866) MONOCYTES ABSOLUTE COUNT (BEAKER) (test 1.58 K/ L 0.24-0.36 ixjp=199) EOSINOPHILS ABSOLUTE COUNT (BEAKER) (test 0.02 K/ L 0.04-0.36 uqye=688) BASOPHILS ABSOLUTE COUNT (BEAKER) (test 0.11 K/ L 0.01-0.08 orlc=068) IMMATURE GRANULOCYTES-RELATIVE PERCENT (BEAKER) 1 % 0-1 (test hsxn=4302) POCT-GLUCOSE [id number] 00:46:00 Test Item Value Reference Range Comments POC-GLUCOSE METER (BEAKER) 144 mg/dL 70-110 TESTED AT [address] (test lgdy=6531) [facility] [address] BLOOD GAS, [id number] 18:49:00 Test Item Value Reference Range Comments PH ARTERIAL (BEAKER) (test pyac=448) 7.47 7.35-7.45 PCO2 ARTERIAL (BEAKER) (test wnky=477) 50 mmHg 35-45 PO2 ARTERIAL (BEAKER) (test wvqe=522) 105 mmHg 80-90 O2 SATURATION ARTERIAL (BEAKER) (test wuwq=689) 97.9 % 96.0-97.0 HCO3 ARTERIAL (BEAKER) (test snhs=301) 35 mmol/L 21-29 BASE EXCESS ARTERIAL (BEAKER) (test vfxd=673) 10.5 mmol/L -2.0-3.0 PATIENT TEMPERATURE (BEAKER) (test yadl=1731) 37.5 C FIO2 (BEAKER) (test nmxa=2739) 60.0 % POCT-GLUCOSE [id number] 18:14:00 Test Item Value Reference Range Comments POC-GLUCOSE METER (BEAKER) 177 mg/dL 70-[address] [facility] [address] (test dcgc=0996) [place] [address] RAD, CHEST, 1 VIEW, NON [id number] 15:41:00Reason for exam:->low 02 saturationShould this be performed at the bedside?->YesFINAL REPORT Chest one view compared to October 29, 2017 Discussion: Hazy opacity left lower lung is unchanged. Right lung clear. ET tube tip at the thoracic inlet. NG tube extends to the stomach. Left subclavian line in place at the upper to mid SVC level. No gross effusion. No pneumothorax. IMPRESSIONS: No significant change. Signed: Jaiden Santana Verified Date/Time: 2017 15:41:20 Reading Location: [address] [place] Consult Reading Room BLOOD GAS, [id number] 14:58:00 Test Item Value Reference Range Comments PH VENOUS (BEAKER) (test lsyu=591) 7.41 7.32-7.42 PCO2 VENOUS (BEAKER) (test xsgs=985) 60 mmHg 41-51 PO2 VENOUS (BEAKER) (test lnmo=525) 46 mmHg 25-40 O2 SATURATION VENOUS (BEAKER) (test geyn=025) 80.7 % 40.0-70.0 HCO3 VENOUS (BEAKER) (test cugp=603) 37 mmol/L 21-29 BASE EXCESS VENOUS (BEAKER) (test bkqi=900) 11.3 mmol/L -2.0-3.0 PATIENT TEMPERATURE (BEAKER) (test cblz=1967) 37.0 C FIO2 (BEAKER) (test lpwk=7126) 60.0 % PROTHROMBIN [id number] 14:30:00 Test Item Value Reference Range Comments PROTIME (BEAKER) (test acsk=209) 21.9 seconds 11.7-14.7 INR (BEAKER) (test cjdb=835) 1.9 <=5.9 RECOMMENDED COUMADIN/WARFARIN INR THERAPY RANGESSTANDARD DOSE: 2.0 - 3.0 Includes: PROPHYLAXIS forvenous thrombosis, systemic embolization; TREATMENT for venous thrombosis and/or pulmonary embolus.HIGH RISK: Target INR is 2.5-3.5 for patients with mechanical heart valves.BASIC METABOLIC [id number] 14:13: 00 Test Item Value Reference Range Comments SODIUM (BEAKER) (test 144 meq/L 136-145 rter=755) POTASSIUM (BEAKER) (test 4.2 meq/L 3.5-5.1 orzz=751) CHLORIDE (BEAKER) (test 104 meq/L 98-107 opgf=548) CO2 (BEAKER) (test 32 meq/L 22-29 laog=936) BLOOD UREA NITROGEN 43 mg/dL 7-21 (BEAKER) (test diht=670) CREATININE (BEAKER) (test 0.88 mg/dL 0.57-1.25 ztix=544) GLUCOSE RANDOM (BEAKER) 205 mg/dL 70-105 (test kgim=447) CALCIUM (BEAKER) (test 7.3 mg/dL 8.4-10.2 lhjq=177) EGFR (BEAKER) (test 66 mL/min/1.73 sq m ESTIMATED GFR IS NOT urwu=4721) ACCURATE CREATININE CLEARANCE IN PREDICTING GLOMERULAR FILTRATION RATE. ESTIMATED GFR IS NOT APPLICABLE FOR DIALYSIS PATIENTS. HEPATIC FUNCTION [id number] 14:13:00 Test Item Value Reference Range Comments TOTAL PROTEIN (BEAKER) (test xipy=250) 4.4 gm/dL 6.0-8.3 ALBUMIN (BEAKER) (test efea=8861) 1.6 g/dL 3.5-5.0 BILIRUBIN TOTAL (BEAKER) (test fzvv=153) 0.9 mg/dL 0.2-1.2 BILIRUBIN DIRECT (BEAKER) (test nbss=699) 0.6 mg/dL 0.1-0.5 ALKALINE PHOSPHATASE (BEAKER) (test sdut=781) 82 U/L 40-150 AST (SGOT) (BEAKER) (test gkjv=935) 28 U/L 5-34 ALT (SGPT) (BEAKER) (test fyra=340) 14 U/L 6-55 [id number] 14:12:00 Test Item Value Reference Range Comments MAGNESIUM (BEAKER) (test bikw=152) 2.2 mg/dL 1.6-2.6 [id number] 14:09:00 Test Item Value Reference Range Comments PHOSPHORUS (BEAKER) (test rixr=550) 3.2 mg/dL 2.3-4.7 CBC (HEMOGRAM ONLY)2017-11-01 13:59:00 Test Item Value Reference Range Comments WHITE BLOOD CELL COUNT (BEAKER) (test qlnj=319) 23.2 K/ L 3.5-10.5 RED BLOOD CELL COUNT (BEAKER) (test ejty=837) 3.10 M/ L 3.93-5.22 HEMOGLOBIN (BEAKER) (test jzxl=824) 8.4 GM/DL 11.2-15.7 HEMATOCRIT (BEAKER) (test zdjw=564) 26.2 % 34.1-44.9 MEAN CORPUSCULAR VOLUME (BEAKER) (test luqj=199) 84.5 fL 79.4-94.8 MEAN CORPUSCULAR HEMOGLOBIN (BEAKER) (test 27.1 pg 25.6-32.2 wzcd=910) MEAN CORPUSCULAR HEMOGLOBIN CONC (BEAKER) (test 32.1 GM/DL 32.2-35.5 zsck=418) RED CELL DISTRIBUTION WIDTH (BEAKER) (test 16.3 % 11.7-14.4 qafz=623) PLATELET COUNT (BEAKER) (test tlxn=018) 502 K/CU MM 150-450 MEAN PLATELET VOLUME (BEAKER) (test iouf=264) 9.7 fL 9.4-12.3 NUCLEATED RED BLOOD CELLS (BEAKER) (test 0 /100 WBC 0-0 xmxo=471) POCT-GLUCOSE [id number] 06:06:00 Test Item Value Reference Range Comments POC-GLUCOSE METER (BEAKER) 105 mg/dL 70-[address] [facility] [address] [facility] (test zfmt=8933) [facility] [address] CALCIUM, [id number] 05:07:00 Test Item Value Reference Range Comments CALCIUM IONIZED (BEAKER) (test dimy=947) 1.08 mmol/L 1.12-1.27 PH, BLOOD (BEAKER) (test xksv=2485) 7.45 BASIC METABOLIC [id number] 04:19:00 Test Item Value Reference Range Comments SODIUM (BEAKER) (test 142 meq/L 136-145 msfp=039) POTASSIUM (BEAKER) (test 3.8 meq/L 3.5-5.1 lzfy=984) CHLORIDE (BEAKER) (test 97 meq/L 98-107 dycb=346) CO2 (BEAKER) (test 37 meq/L 22-29 rrei=669) BLOOD UREA NITROGEN 42 mg/dL 7-21 (BEAKER) (test jggj=399) CREATININE (BEAKER) (test 1.03 mg/dL 0.57-1.25 fivq=214) GLUCOSE RANDOM (BEAKER) 139 mg/dL 70-105 (test japy=851) CALCIUM (BEAKER) (test 7.6 mg/dL 8.4-10.2 vbck=644) EGFR (BEAKER) (test 55 mL/min/1.73 sq m ESTIMATED GFR IS NOT crag=6496) ACCURATE CREATININE CLEARANCE IN PREDICTING GLOMERULAR FILTRATION RATE. ESTIMATED GFR IS NOT APPLICABLE FOR DIALYSIS PATIENTS. [id number] 04:11:00 Test Item Value Reference Range Comments PHOSPHORUS (BEAKER) (test pzpi=545) 2.9 mg/dL 2.3-4.7 [id number] 04:11:00 Test Item Value Reference Range Comments MAGNESIUM (BEAKER) (test vusc=039) 1.9 mg/dL 1.6-2.6 CBC W/PLT COUNT & AUTO [id number] 04:05:00 Test Item Value Reference Range Comments WHITE BLOOD CELL COUNT (BEAKER) (test obol=877) 18.8 K/ L 3.5-10.5 RED BLOOD CELL COUNT (BEAKER) (test dzdw=608) 3.09 M/ L 3.93-5.22 HEMOGLOBIN (BEAKER) (test mqnf=530) 8.3 GM/DL 11.2-15.7 HEMATOCRIT (BEAKER) (test qdbr=000) 25.6 % 34.1-44.9 MEAN CORPUSCULAR VOLUME (BEAKER) (test xecs=903) 82.8 fL 79.4-94.8 MEAN CORPUSCULAR HEMOGLOBIN (BEAKER) (test 26.9 pg 25.6-32.2 vmke=315) MEAN CORPUSCULAR HEMOGLOBIN CONC (BEAKER) (test 32.4 GM/DL 32.2-35.5 wpjh=031) RED CELL DISTRIBUTION WIDTH (BEAKER) (test 16.0 % 11.7-14.4 jdij=668) PLATELET COUNT (BEAKER) (test fsbz=919) 511 K/CU MM 150-450 MEAN PLATELET VOLUME (BEAKER) (test jlmq=085) 9.6 fL 9.4-12.3 NUCLEATED RED BLOOD CELLS (BEAKER) (test 0 /100 WBC 0-0 hgxi=760) NEUTROPHILS RELATIVE PERCENT (BEAKER) (test 79 % dkey=852) LYMPHOCYTES RELATIVE PERCENT (BEAKER) (test 8 % kviu=748) MONOCYTES RELATIVE PERCENT (BEAKER) (test 9 % myqc=070) EOSINOPHILS RELATIVE PERCENT (BEAKER) (test 3 % kqmm=071) BASOPHILS RELATIVE PERCENT (BEAKER) (test 1 % jhia=755) NEUTROPHILS ABSOLUTE COUNT (BEAKER) (test 14.79 K/ L 1.56-6.13 rqcp=675) LYMPHOCYTES ABSOLUTE COUNT (BEAKER) (test 1.42 K/ L 1.18-3.74 kncu=279) MONOCYTES ABSOLUTE COUNT (BEAKER) (test 1.59 K/ L 0.24-0.36 ylav=119) EOSINOPHILS ABSOLUTE COUNT (BEAKER) (test 0.64 K/ L 0.04-0.36 iahl=610) BASOPHILS ABSOLUTE COUNT (BEAKER) (test 0.12 K/ L 0.01-0.08 ueij=934) IMMATURE GRANULOCYTES-RELATIVE PERCENT (BEAKER) 1 % 0-1 (test dskk=8081) POCT-GLUCOSE [id number] 00:36:00 Test Item Value Reference Range Comments POC-GLUCOSE METER (BEAKER) 145 mg/dL 70-110 TESTED AT [address] (test bssw=4327) [facility] [id number] BASIC METABOLIC [id number] 22:49:00 Test Item Value Reference Range Comments SODIUM (BEAKER) (test 143 meq/L 136-145 mwej=232) POTASSIUM (BEAKER) (test 3.1 meq/L 3.5-5.1 wjzz=394) CHLORIDE (BEAKER) (test 97 meq/L 98-107 lpxm=707) CO2 (BEAKER) (test 36 meq/L 22-29 csda=231) BLOOD UREA NITROGEN 40 mg/dL 7-21 (BEAKER) (test udim=359) CREATININE (BEAKER) (test 1.03 mg/dL 0.57-1.25 phis=567) GLUCOSE RANDOM (BEAKER) 131 mg/dL 70-105 (test ymsy=931) CALCIUM (BEAKER) (test 7.5 mg/dL 8.4-10.2 vxip=082) EGFR (BEAKER) (test 55 mL/min/1.73 sq m ESTIMATED GFR IS NOT jwua=9467) ACCURATE CREATININE CLEARANCE IN PREDICTING GLOMERULAR FILTRATION RATE. ESTIMATED GFR IS NOT APPLICABLE FOR DIALYSIS PATIENTS. POCT-GLUCOSE [id number] 17:45:00 Test Item Value Reference Range Comments POC-GLUCOSE METER (BEAKER) 129 mg/dL 70-110 TESTED AT [address] (test jonm=9103) [place] [id number] MISCELLANEOUS LAB [id number] 14:46:00 Test Item Value Reference Range Comments SCAN RESULT (test [id number]) Result comments: Coagulase Negative Staphylococcus Species (CoNS) [...] required. This sample was tested at the [facility] Clinical Microbiology Laboratory using the [employer] Blood Culture ID Panel. This test is FDA cleared for in vitro diagnostic use and has been verified and approved by the [facility] Clinical Microbiology laboratory for clinical use. Reference Range: Not DetectedANTI-NUCLEAR ANTIBODY (BECCA) 13:59:00 Test Item Value Reference Range Comments ANTI-NUCLEAR ANTIBODY (BECCA) (BEAKER) (test Negative Negative qtym=383) POCT-GLUCOSE [id number] 11:45:00 Test Item Value Reference Range Comments POC-GLUCOSE METER (BEAKER) 152 mg/dL 70-110 TESTED AT [address] (test vrxg=0127) [place] [address] BASIC METABOLIC [id number] 04:44:00 Test Item Value Reference Range Comments SODIUM (BEAKER) (test 139 meq/L 136-145 cijf=595) POTASSIUM (BEAKER) (test 3.2 meq/L 3.5-5.1 mkje=424) CHLORIDE (BEAKER) (test 99 meq/L 98-107 xebp=771) CO2 (BEAKER) (test 32 meq/L 22-29 iqhx=656) BLOOD UREA NITROGEN 35 mg/dL 7-21 (BEAKER) (test czbn=842) CREATININE (BEAKER) (test 1.24 mg/dL 0.57-1.25 phuy=019) GLUCOSE RANDOM (BEAKER) 140 mg/dL 70-105 (test iwvw=515) CALCIUM (BEAKER) (test 7.6 mg/dL 8.4-10.2 pyrl=032) EGFR (BEAKER) (test 44 mL/min/1.73 sq m ESTIMATED GFR IS NOT wksl=6648) ACCURATE CREATININE CLEARANCE IN PREDICTING GLOMERULAR FILTRATION RATE. ESTIMATED GFR IS NOT APPLICABLE FOR DIALYSIS PATIENTS. [id number] 04:40:00 Test Item Value Reference Range Comments PHOSPHORUS (BEAKER) (test xvvf=220) 2.3 mg/dL 2.3-4.7 [id number] 04:40:00 Test Item Value Reference Range Comments MAGNESIUM (BEAKER) (test irka=107) 2.1 mg/dL 1.6-2.6 CBC W/PLT COUNT & AUTO [id number] 04:21:00 Test Item Value Reference Range Comments WHITE BLOOD CELL COUNT (BEAKER) (test pffr=730) 14.9 K/ L 3.5-10.5 RED BLOOD CELL COUNT (BEAKER) (test anla=507) 2.81 M/ L 3.93-5.22 HEMOGLOBIN (BEAKER) (test vszp=210) 7.7 GM/DL 11.2-15.7 HEMATOCRIT (BEAKER) (test dfyb=526) 23.3 % 34.1-44.9 MEAN CORPUSCULAR VOLUME (BEAKER) (test fwmq=958) 82.9 fL 79.4-94.8 MEAN CORPUSCULAR HEMOGLOBIN (BEAKER) (test 27.4 pg 25.6-32.2 ujcz=552) MEAN CORPUSCULAR HEMOGLOBIN CONC (BEAKER) (test 33.0 GM/DL 32.2-35.5 yzuo=811) RED CELL DISTRIBUTION WIDTH (BEAKER) (test 15.6 % 11.7-14.4 zbti=074) PLATELET COUNT (BEAKER) (test qmtp=580) 466 K/CU MM 150-450 MEAN PLATELET VOLUME (BEAKER) (test euvz=642) 9.6 fL 9.4-12.3 NUCLEATED RED BLOOD CELLS (BEAKER) (test 0 /100 WBC 0-0 ahrx=733) NEUTROPHILS RELATIVE PERCENT (BEAKER) (test 79 % hphw=948) LYMPHOCYTES RELATIVE PERCENT (BEAKER) (test 8 % abmz=455) MONOCYTES RELATIVE PERCENT (BEAKER) (test 8 % oalp=443) EOSINOPHILS RELATIVE PERCENT (BEAKER) (test 4 % uznq=833) BASOPHILS RELATIVE PERCENT (BEAKER) (test 0 % kmbq=497) NEUTROPHILS ABSOLUTE COUNT (BEAKER) (test 11.81 K/ L 1.56-6.13 ekji=701) LYMPHOCYTES ABSOLUTE COUNT (BEAKER) (test 1.14 K/ L 1.18-3.74 xnrh=615) MONOCYTES ABSOLUTE COUNT (BEAKER) (test 1.14 K/ L 0.24-0.36 ofwf=062) EOSINOPHILS ABSOLUTE COUNT (BEAKER) (test 0.57 K/ L 0.04-0.36 shqy=672) BASOPHILS ABSOLUTE COUNT (BEAKER) (test 0.05 K/ L 0.01-0.08 qukg=841) IMMATURE GRANULOCYTES-RELATIVE PERCENT (BEAKER) 1 % 0-1 (test rfai=3803) POCT-GLUCOSE [id number] 00:13:00 Test Item Value Reference Range Comments POC-GLUCOSE METER (BEAKER) 136 mg/dL 70-110 TESTED AT [place] [id number] [facility] (test vpun=8829) [facility] [address] BASIC METABOLIC [id number] 19:05:00 Test Item Value Reference Range Comments SODIUM (BEAKER) (test 138 meq/L 136-145 dwuc=513) POTASSIUM (BEAKER) (test 3.3 meq/L 3.5-5.1 nkjn=622) CHLORIDE (BEAKER) (test 99 meq/L 98-107 jzjg=624) CO2 (BEAKER) (test 32 meq/L 22-29 cjon=320) BLOOD UREA NITROGEN 32 mg/dL 7-21 (BEAKER) (test vgrf=763) CREATININE (BEAKER) (test 1.35 mg/dL 0.57-1.25 dqec=465) GLUCOSE RANDOM (BEAKER) 111 mg/dL 70-105 (test avhs=767) CALCIUM (BEAKER) (test 7.7 mg/dL 8.4-10.2 ruqe=547) EGFR (BEAKER) (test 40 mL/min/1.73 sq m ESTIMATED GFR IS NOT vods=6990) ACCURATE CREATININE CLEARANCE IN PREDICTING GLOMERULAR FILTRATION RATE. ESTIMATED GFR IS NOT APPLICABLE FOR DIALYSIS PATIENTS. POCT-GLUCOSE [id number] 18:48:00 Test Item Value Reference Range Comments POC-GLUCOSE METER (BEAKER) 128 mg/dL 70-[address] [facility] [address] [facility] (test hrgm=9917) [facility] [address] EOSINOPHIL SMEAR, [id number] 16:07:00 Test Item Value Reference Range Comments EOSINOPHIL SMEAR, URINE Rare EOS=less than 5% No EOS seen Many yeasts seen (BEAKER) (test aujz=3806) WBCs seen are EOS URINALYSIS W/ [id number] 14:34:00 Test Item Value Reference Range Comments COLOR (BEAKER) (test qnch=342) Yellow CLARITY (BEAKER) (test urol=255) Hazy SPECIFIC GRAVITY UA (BEAKER) (test kpnx=151) 1.009 1.001-1.035 PH UA (BEAKER) (test wful=226) 6.5 5.0-8.0 PROTEIN UA (BEAKER) (test gtow=079) 20 mg/dL Negative GLUCOSE UA (BEAKER) (test qwja=668) Negative Negative KETONES UA (BEAKER) (test xxpi=809) Negative Negative BILIRUBIN UA (BEAKER) (test xzzm=720) Negative Negative BLOOD UA (BEAKER) (test bwgz=527) Small Negative NITRITE UA (BEAKER) (test kqwd=203) Negative Negative LEUKOCYTE ESTERASE UA (BEAKER) (test xgqs=162) Large Negative UROBILINOGEN UA (BEAKER) (test mzqb=763) 0.2 mg/dL 0.2-1.0 RBC UA (BEAKER) (test mhwb=456) 5 /HPF WBC UA (BEAKER) (test pkma=344) 149 /HPF MUCUS (BEAKER) (test cqib=3913) Rare SOURCE(BEAKER) (test gyig=3397) Urine, Shah SODIUM, RANDOM [id number] 13:51:00 Test Item Value Reference Range Comments SODIUM URINE (BEAKER) (test iqdt=251) 82 meq/L Reference Range: No NormalsPOCT-GLUCOSE [id number] 12:49:00 Test Item Value Reference Range Comments POC-GLUCOSE METER (BEAKER) 128 mg/dL 70-[address] [facility] [address] (test ixty=6779) [facility] [address] BASIC METABOLIC [id number] 07:39:00 Test Item Value Reference Range Comments SODIUM (BEAKER) (test 134 meq/L 136-145 xkcr=588) POTASSIUM (BEAKER) (test 3.6 meq/L 3.5-5.1 grts=596) CHLORIDE (BEAKER) (test 100 meq/L 98-107 vlpv=374) CO2 (BEAKER) (test 28 meq/L 22-29 egdm=473) BLOOD UREA NITROGEN 30 mg/dL 7-21 (BEAKER) (test xolv=343) CREATININE (BEAKER) (test 1.42 mg/dL 0.57-1.25 janb=078) GLUCOSE RANDOM (BEAKER) 117 mg/dL 70-105 (test vjaj=394) CALCIUM (BEAKER) (test 7.3 mg/dL 8.4-10.2 txpd=017) EGFR (BEAKER) (test 38 mL/min/1.73 sq m ESTIMATED GFR IS NOT iywj=3111) ACCURATE CREATININE CLEARANCE IN PREDICTING GLOMERULAR FILTRATION RATE. ESTIMATED GFR IS NOT APPLICABLE FOR DIALYSIS PATIENTS. CBC W/PLT COUNT & AUTO [id number] 06:37:00 Test Item Value Reference Range Comments WHITE BLOOD CELL COUNT (BEAKER) (test eosb=776) 15.6 K/ L 3.5-10.5 RED BLOOD CELL COUNT (BEAKER) (test bfgm=896) 2.86 M/ L 3.93-5.22 HEMOGLOBIN (BEAKER) (test vdci=332) 7.7 GM/DL 11.2-15.7 HEMATOCRIT (BEAKER) (test cuif=006) 23.7 % 34.1-44.9 MEAN CORPUSCULAR VOLUME (BEAKER) (test qdfg=542) 82.9 fL 79.4-94.8 MEAN CORPUSCULAR HEMOGLOBIN (BEAKER) (test 26.9 pg 25.6-32.2 jiua=393) MEAN CORPUSCULAR HEMOGLOBIN CONC (BEAKER) (test 32.5 GM/DL 32.2-35.5 rlkm=816) RED CELL DISTRIBUTION WIDTH (BEAKER) (test 15.6 % 11.7-14.4 lxha=347) PLATELET COUNT (BEAKER) (test hnha=980) 442 K/CU MM 150-450 MEAN PLATELET VOLUME (BEAKER) (test myhq=893) 9.6 fL 9.4-12.3 NUCLEATED RED BLOOD CELLS (BEAKER) (test 0 /100 WBC 0-0 cyyy=098) NEUTROPHILS RELATIVE PERCENT (BEAKER) (test 80 % fywf=032) LYMPHOCYTES RELATIVE PERCENT (BEAKER) (test 8 % poes=494) MONOCYTES RELATIVE PERCENT (BEAKER) (test 7 % sgrz=510) EOSINOPHILS RELATIVE PERCENT (BEAKER) (test 4 % ggwy=088) BASOPHILS RELATIVE PERCENT (BEAKER) (test 1 % npih=187) NEUTROPHILS ABSOLUTE COUNT (BEAKER) (test 12.51 K/ L 1.56-6.13 atra=775) LYMPHOCYTES ABSOLUTE COUNT (BEAKER) (test 1.17 K/ L 1.18-3.74 bhmc=239) MONOCYTES ABSOLUTE COUNT (BEAKER) (test 1.09 K/ L 0.24-0.36 qvnt=738) EOSINOPHILS ABSOLUTE COUNT (BEAKER) (test 0.58 K/ L 0.04-0.36 vdwv=936) BASOPHILS ABSOLUTE COUNT (BEAKER) (test 0.08 K/ L 0.01-0.08 ecoy=972) IMMATURE GRANULOCYTES-RELATIVE PERCENT (BEAKER) 1 % 0-1 (test tiqy=5984) POCT-GLUCOSE [id number] 06:27:00 Test Item Value Reference Range Comments POC-GLUCOSE METER (BEAKER) 136 mg/dL 70-[address] [facility] [address] [facility] (test gyfq=6950) [facility] [address] [id number] 05:48:00 Test Item Value Reference Range Comments PHOSPHORUS (BEAKER) (test gpwb=438) 2.6 mg/dL 2.3-4.7 [id number] 05:48:00 Test Item Value Reference Range Comments MAGNESIUM (BEAKER) (test veie=797) 2.1 mg/dL 1.6-2.6 POCT-GLUCOSE [id number] 00:10:00 Test Item Value Reference Range Comments POC-GLUCOSE METER (BEAKER) 118 mg/dL 70-110 TESTED AT [address] (test whvb=6299) [place] [id number] URINALYSIS W/ REFLEX URINE [id number] 19:35:00 Test Item Value Reference Range Comments COLOR (BEAKER) (test jplb=638) Light Yellow CLARITY (BEAKER) (test qlnf=162) Hazy SPECIFIC GRAVITY UA (BEAKER) (test kivm=628) 1.008 1.001-1.035 PH UA (BEAKER) (test ffku=123) 6.0 5.0-8.0 PROTEIN UA (BEAKER) (test ecdh=870) Negative Negative GLUCOSE UA (BEAKER) (test zhkv=406) Negative Negative KETONES UA (BEAKER) (test ihbe=165) Negative Negative BILIRUBIN UA (BEAKER) (test cizd=394) Negative Negative BLOOD UA (BEAKER) (test bucj=207) Small Negative NITRITE UA (BEAKER) (test kicm=345) Negative Negative LEUKOCYTE ESTERASE UA (BEAKER) (test llrg=979) Moderate Negative UROBILINOGEN UA (BEAKER) (test vjek=220) 0.2 mg/dL 0.2-1.0 RBC UA (BEAKER) (test ujxv=842) 17 /HPF WBC UA (BEAKER) (test xgvs=103) 23 /HPF BACTERIA (BEAKER) (test olja=921) Occasional MUCUS (BEAKER) (test mbmw=1395) Occasional SOURCE(BEAKER) (test aodh=8532) POCT-GLUCOSE [id number] 18:41:00 Test Item Value Reference Range Comments POC-GLUCOSE METER (BEAKER) 114 mg/dL 70-110 TESTED AT [address] (test fhim=5905) [place] [address] RAD, CHEST, 1 VIEW, NON [id number] 15:55:00Reason for exam:->line placementFINAL REPORT Chest, one view HISTORY: Line placement COMPARISON: 10/28/2017 IMPRESSION: Interval placement of a left subclavian catheter with the tip overlying the SVC. Right-sidedPICC and nasogastric tube grossly unchanged in position. No identifiable pneumothorax. Unchanged trace bilateral pleural effusions and mild interstitial edema. No new focal consolidation. Cardiomediastinal silhouette is unremarkable. Signed: Monico Reed MDReport Verified Date/Time: 10/29/2017 15:55:41 Reading Location: [facility] B1 C013Y CT Body Reading Room CT, CTA [id number] 12:50:00CTA abdomen and pelvis down to upper thighs (2mm cuts, no oral contrast)Please perform delayed phaseportal venous studyFINAL REPORT CT angiogram of the abdomen and pelvis Reason for study: Historyof bowel perforation and resections at an outside hospital, possible acute on chronic mesenteric ischemia Comparison : KUB, earlier today Technique: Pre contrast imaging was performed of the abdomen andpelvis. Post contrast imaging was performed in the arterial and venous phases after intravenous contrast injection. 3-D post processing was performed at a freestanding workstation for vascular evaluation. Dose modulation , iterative reconstruction, and/or weight based adjustment of [...] pockets of air in the mesentery. A rim- enhancing fluid collection is identified in the dependent [...] The urinary bladder is empty with Shah catheterpresent. The uterus and ovaries are not identified. [...] given the patient's history. No pneumatosis or high- grade obstruction. 4. Open abdomen. Pockets of free intraperitoneal air are noted, as expected with an open abdomen and recent surgeries. A small loculated fluid collection is identified in the upper pelvis. 5. Third spacing of fluid. Signed: Khoi Chand MDReport Verified Date/Time: 10/29/2017 12:50:17 Reading Location: [place] [address] Cardiology MRI POCT-GLUCOSE [id number] 12:27:00 Test Item Value Reference Range Comments POC-GLUCOSE METER (BEAKER) 119 mg/dL 70-[address] [facility] [address] [facility] (test pqbr=4346) [facility] [address] POCT-GLUCOSE [id number] 06:40:00 Test Item Value Reference Range Comments POC-GLUCOSE METER (BEAKER) 113 mg/dL 70-[address] [facility] [address] [facility] (test cdmm=3572) [facility] [address] BASIC METABOLIC [id number] 04:26:00 Test Item Value Reference Range Comments SODIUM (BEAKER) (test 131 meq/L 136-145 wdpw=775) POTASSIUM (BEAKER) (test 4.1 meq/L 3.5-5.1 mskk=934) CHLORIDE (BEAKER) (test 101 meq/L 98-107 spmh=391) CO2 (BEAKER) (test 24 meq/L 22-29 umrj=089) BLOOD UREA NITROGEN 23 mg/dL 7-21 (BEAKER) (test vjas=986) CREATININE (BEAKER) (test 1.27 mg/dL 0.57-1.25 vnqu=602) GLUCOSE RANDOM (BEAKER) 98 mg/dL 70-105 (test ndyx=660) CALCIUM (BEAKER) (test 7.0 mg/dL 8.4-10.2 aqfl=220) EGFR (BEAKER) (test 43 mL/min/1.73 sq m ESTIMATED GFR IS NOT ixua=3185) ACCURATE CREATININE CLEARANCE IN PREDICTING GLOMERULAR FILTRATION RATE. ESTIMATED GFR IS NOT APPLICABLE FOR DIALYSIS PATIENTS. CBC W/PLT COUNT & AUTO [id number] 04:11:00 Test Item Value Reference Range Comments WHITE BLOOD CELL COUNT (BEAKER) (test iecx=624) 17.2 K/ L 3.5-10.5 RED BLOOD CELL COUNT (BEAKER) (test ragq=573) 2.79 M/ L 3.93-5.22 HEMOGLOBIN (BEAKER) (test ohus=162) 7.5 GM/DL 11.2-15.7 HEMATOCRIT (BEAKER) (test hopq=150) 23.2 % 34.1-44.9 MEAN CORPUSCULAR VOLUME (BEAKER) (test celf=989) 83.2 fL 79.4-94.8 MEAN CORPUSCULAR HEMOGLOBIN (BEAKER) (test 26.9 pg 25.6-32.2 qtxa=109) MEAN CORPUSCULAR HEMOGLOBIN CONC (BEAKER) (test 32.3 GM/DL 32.2-35.5 mchj=111) RED CELL DISTRIBUTION WIDTH (BEAKER) (test 15.4 % 11.7-14.4 dbzf=857) PLATELET COUNT (BEAKER) (test viyp=864) 406 K/CU MM 150-450 MEAN PLATELET VOLUME (BEAKER) (test unhd=667) 9.8 fL 9.4-12.3 NUCLEATED RED BLOOD CELLS (BEAKER) (test 0 /100 WBC 0-0 oclt=503) NEUTROPHILS RELATIVE PERCENT (BEAKER) (test 81 % kvbk=459) LYMPHOCYTES RELATIVE PERCENT (BEAKER) (test 7 % txhx=986) MONOCYTES RELATIVE PERCENT (BEAKER) (test 7 % txan=709) EOSINOPHILS RELATIVE PERCENT (BEAKER) (test 4 % lfle=451) BASOPHILS RELATIVE PERCENT (BEAKER) (test 1 % kqzk=553) NEUTROPHILS ABSOLUTE COUNT (BEAKER) (test 13.93 K/ L 1.56-6.13 ztjm=013) LYMPHOCYTES ABSOLUTE COUNT (BEAKER) (test 1.15 K/ L 1.18-3.74 fdgt=845) MONOCYTES ABSOLUTE COUNT (BEAKER) (test 1.26 K/ L 0.24-0.36 woab=345) EOSINOPHILS ABSOLUTE COUNT (BEAKER) (test 0.63 K/ L 0.04-0.36 zoqz=535) BASOPHILS ABSOLUTE COUNT (BEAKER) (test 0.08 K/ L 0.01-0.08 oxmq=851) IMMATURE GRANULOCYTES-RELATIVE PERCENT (BEAKER) 1 % 0-1 (test ygxb=6193) [id number] 04:00:00 Test Item Value Reference Range Comments TRIGLYCERIDES (BEAKER) (test hnep=971) 200 mg/dL TRIGLYCERIDE REFERENCE RANGELow Risk <150Borderline Risk 150-199High Risk 200-499Very High Risk>=[id number] 04:00:00 Test Item Value Reference Range Comments MAGNESIUM (BEAKER) (test jrjl=353) 1.6 mg/dL 1.6-2.6 [id number] 04:00:00 Test Item Value Reference Range Comments PHOSPHORUS (BEAKER) (test pqmk=274) 3.1 mg/dL 2.3-4.7 POCT-GLUCOSE [id number] 00:39:00 Test Item Value Reference Range Comments POC-GLUCOSE METER (BEAKER) 116 mg/dL 70-110 TESTED AT [address] (test oolp=3609) [place] [address] POCT-GLUCOSE [id number] 18:02:00 Test Item Value Reference Range Comments POC-GLUCOSE METER (BEAKER) 97 mg/dL 70-110 TESTED AT [address] (test pykk=6018) [place] [address] RAD, CHEST, 1 VIEW, NON [id number] 13:06:00Reason for exam:->concern for PNAShould this be performed at the bedside?->YesFINAL REPORT Chest one view AP 10/28/2017 1:06 PM CLINICAL INDICATION: concern for PNA COMPARISON: None available IMPRESSION: Hazy opacity in the left mid and lower lung suggestingcombination of small volume pleural fluid and airspace disease, atelectasis versus pneumonia. Right lung is well aerated. Cardiomediastinal contours are within normal limits. The central pulmonary vasculature is not engorged. Support catheters are in satisfactory radiographic position. Signed: Alon Mars MDReport Verified Date/Time: 10/28/2017 13:06: 52 Reading Location: [facility] B1 C013W Consult Reading Room POCT-GLUCOSE [id number] 11 :35:00 Test Item Value Reference Range Comments POC-GLUCOSE METER (BEAKER) 115 mg/dL 70-110 TESTED AT [address] (test hhjn=4025) [place] [address] URINALYSIS W/ [id number] 11:02:00 Test Item Value Reference Range Comments COLOR (BEAKER) (test xqsj=383) [place] CLARITY (BEAKER) (test lqmz=481) Cloudy SPECIFIC GRAVITY UA (BEAKER) (test ffcc=244) 1.017 1.001-1.035 PH UA (BEAKER) (test eoxh=091) 6.0 5.0-8.0 PROTEIN UA (BEAKER) (test frox=176) 50 mg/dL Negative GLUCOSE UA (BEAKER) (test nziz=729) Negative Negative KETONES UA (BEAKER) (test jsbl=408) Negative Negative BILIRUBIN UA (BEAKER) (test ispr=219) Positive Negative BLOOD UA (BEAKER) (test gkyb=723) Small Negative NITRITE UA (BEAKER) (test zhid=115) Negative Negative LEUKOCYTE ESTERASE UA (BEAKER) (test jocb=384) Moderate Negative UROBILINOGEN UA (BEAKER) (test rpcx=275) 2.0 mg/dL 0.2-1.0 RBC UA (BEAKER) (test vjfx=286) 41 /HPF WBC UA (BEAKER) (test gyay=516) 68 /HPF SOURCE(BEAKER) (test frgj=0839) Urine, Shah RAD, ABDOMEN/KUB, 1 VIEW [id number] 07:33:00Reason for exam:->sboFINAL REPORT Abdomen one view supine 10/28/2017 7:32 AM CLINICAL INDICATION: sbo COMPARISON: None available IMPRESSION: There are dilated loops of small bowel measuring up to 4.1 cm in diameter. There is a comparative paucity of air in the colon. Findings suggest small bowel obstruction. The side port of an enteric tube projects over the gastric body. A drainage catheter projectsover the pelvis. There are no acute-appearing skeletal abnormalities. Opacity in the retrocardiac left lower lobe may reflect atelectasis or pneumonia. There is a trace left pleural effusion. Signed: Alon Mars Verified Date/Time: 10/28/2017 07:33:35 Reading Location: [facility] Radiology Reading Room POCT-GLUCOSE [id number] 05:58:00 Test Item Value Reference Range Comments POC-GLUCOSE METER (BEAKER) 122 mg/dL 70-110 [address] [facility] [address] BASIC METABOLIC [id number] 04:27:00 Test Item Value Reference Range Comments SODIUM (BEAKER) (test 132 meq/L 136-145 qbok=606) POTASSIUM (BEAKER) (test 4.2 meq/L 3.5-5.1 lfsm=888) CHLORIDE (BEAKER) (test 104 meq/L 98-107 pfsu=343) CO2 (BEAKER) (test 25 meq/L 22-29 kkmp=498) BLOOD UREA NITROGEN 18 mg/dL 7-21 (BEAKER) (test xihg=680) CREATININE (BEAKER) (test 0.73 mg/dL 0.57-1.25 hpky=656) GLUCOSE RANDOM (BEAKER) 127 mg/dL 70-105 (test xxvv=049) CALCIUM (BEAKER) (test 6.6 mg/dL 8.4-10.2 arth=071) EGFR (BEAKER) (test 82 mL/min/1.73 sq m ESTIMATED GFR IS NOT fjxm=8955) ACCURATE CREATININE CLEARANCE IN PREDICTING GLOMERULAR FILTRATION RATE. ESTIMATED GFR IS NOT APPLICABLE FOR DIALYSIS PATIENTS. [id number] 04:24:00 Test Item Value Reference Range Comments PHOSPHORUS (BEAKER) (test xbxc=079) 3.0 mg/dL 2.3-4.7 [id number] 04:24:00 Test Item Value Reference Range Comments MAGNESIUM (BEAKER) (test fipj=375) 1.8 mg/dL 1.6-2.6 CBC W/PLT COUNT & AUTO [id number] 03:53:00 Test Item Value Reference Range Comments WHITE BLOOD CELL COUNT (BEAKER) (test trso=110) 19.5 K/ L 3.5-10.5 RED BLOOD CELL COUNT (BEAKER) (test nfev=143) 2.87 M/ L 3.93-5.22 HEMOGLOBIN (BEAKER) (test jhle=118) 7.9 GM/DL 11.2-15.7 HEMATOCRIT (BEAKER) (test ptad=624) 23.8 % 34.1-44.9 MEAN CORPUSCULAR VOLUME (BEAKER) (test weml=169) 82.9 fL 79.4-94.8 MEAN CORPUSCULAR HEMOGLOBIN (BEAKER) (test 27.5 pg 25.6-32.2 insk=085) MEAN CORPUSCULAR HEMOGLOBIN CONC (BEAKER) (test 33.2 GM/DL 32.2-35.5 arsc=436) RED CELL DISTRIBUTION WIDTH (BEAKER) (test 15.6 % 11.7-14.4 uiez=243) PLATELET COUNT (BEAKER) (test anwr=043) 349 K/CU MM 150-450 MEAN PLATELET VOLUME (BEAKER) (test djso=005) 10.1 fL 9.4-12.3 NUCLEATED RED BLOOD CELLS (BEAKER) (test 0 /100 WBC 0-0 gvzi=616) NEUTROPHILS RELATIVE PERCENT (BEAKER) (test 84 % hqjk=223) LYMPHOCYTES RELATIVE PERCENT (BEAKER) (test 7 % hiau=581) MONOCYTES RELATIVE PERCENT (BEAKER) (test 8 % gtos=785) EOSINOPHILS RELATIVE PERCENT (BEAKER) (test 1 % rdva=878) BASOPHILS RELATIVE PERCENT (BEAKER) (test 0 % nejy=150) NEUTROPHILS ABSOLUTE COUNT (BEAKER) (test 16.27 K/ L 1.56-6.13 gvzt=302) LYMPHOCYTES ABSOLUTE COUNT (BEAKER) (test 1.32 K/ L 1.18-3.74 rvte=254) MONOCYTES ABSOLUTE COUNT (BEAKER) (test 1.51 K/ L 0.24-0.36 mwzj=177) EOSINOPHILS ABSOLUTE COUNT (BEAKER) (test 0.22 K/ L 0.04-0.36 vuwm=999) BASOPHILS ABSOLUTE COUNT (BEAKER) (test 0.06 K/ L 0.01-0.08 bjrl=927) IMMATURE GRANULOCYTES-RELATIVE PERCENT (BEAKER) 1 % 0-1 (test glil=7560) COMPREHENSIVE METABOLIC [id number] 21:24:00 Test Item Value Reference Range Comments TOTAL PROTEIN (BEAKER) 3.6 gm/dL 6.0-8.3 (test hkib=058) ALBUMIN (BEAKER) (test 1.5 g/dL 3.5-5.0 mwdp=7338) ALKALINE PHOSPHATASE 43 U/L 40-150 (BEAKER) (test tjbf=037) BILIRUBIN TOTAL (BEAKER) 2.0 mg/dL 0.2-1.2 (test qhbs=977) SODIUM (BEAKER) (test 131 meq/L 136-145 yawe=893) POTASSIUM (BEAKER) (test 4.6 meq/L 3.5-5.1 siwb=030) CHLORIDE (BEAKER) (test 101 meq/L 98-107 rcvf=098) CO2 (BEAKER) (test 25 meq/L 22-29 xjwj=454) BLOOD UREA NITROGEN 16 mg/dL 7-21 (BEAKER) (test ccwb=419) CREATININE (BEAKER) (test 0.65 mg/dL 0.57-1.25 vtap=230) GLUCOSE RANDOM (BEAKER) 109 mg/dL 70-105 (test plsk=874) CALCIUM (BEAKER) (test 6.5 mg/dL 8.4-10.2 pbpf=550) AST (SGOT) (BEAKER) (test 22 U/L 5-34 wqmo=901) ALT (SGPT) (BEAKER) (test 10 U/L 6-55 khke=588) EGFR (BEAKER) (test 93 mL/min/1.73 sq m ESTIMATED GFR IS NOT fihz=6154) ACCURATE CREATININE CLEARANCE IN PREDICTING GLOMERULAR FILTRATION RATE. ESTIMATED GFR IS NOT APPLICABLE FOR DIALYSIS PATIENTS. [id number] 21:19:00 Test Item Value Reference Range Comments PHOSPHORUS (BEAKER) (test ceto=070) 2.6 mg/dL 2.3-4.7 [id number] 21:19:00 Test Item Value Reference Range Comments MAGNESIUM (BEAKER) (test iemv=820) 1.6 mg/dL 1.6-2.6 LACTIC ACID, VENOUS, WHOLE [id number] 21:16:00 Test Item Value Reference Range Comments LACTATE BLOOD VENOUS (2) (BEAKER) (test 1.2 mmol/L 0.5-2.2 ubzn=4489) Effective 01/21/2016: Units/Reference Range ChangeNew: 0.5-2.2 mmol/L Previous: 5 -20 mg/dLCBC W/PLT COUNT & AUTO [id number] 21:07:00 Test Item Value Reference Range Comments WHITE BLOOD CELL COUNT (BEAKER) (test lqbl=693) 23.9 K/ L 3.5-10.5 RED BLOOD CELL COUNT (BEAKER) (test uyrm=994) 3.73 M/ L 3.93-5.22 HEMOGLOBIN (BEAKER) (test xdhc=995) 10.1 GM/DL 11.2-15.7 HEMATOCRIT (BEAKER) (test nqvn=739) 30.7 % 34.1-44.9 MEAN CORPUSCULAR VOLUME (BEAKER) (test sang=627) 82.3 fL 79.4-94.8 MEAN CORPUSCULAR HEMOGLOBIN (BEAKER) (test 27.1 pg 25.6-32.2 znsn=538) MEAN CORPUSCULAR HEMOGLOBIN CONC (BEAKER) (test 32.9 GM/DL 32.2-35.5 icab=693) RED CELL DISTRIBUTION WIDTH (BEAKER) (test 15.6 % 11.7-14.4 fjfm=971) PLATELET COUNT (BEAKER) (test lvlg=904) 422 K/CU MM 150-450 MEAN PLATELET VOLUME (BEAKER) (test bvuz=872) 10.3 fL 9.4-12.3 NUCLEATED RED BLOOD CELLS (BEAKER) (test 0 /100 WBC 0-0 kyht=031) NEUTROPHILS RELATIVE PERCENT (BEAKER) (test 84 % ofsf=047) LYMPHOCYTES RELATIVE PERCENT (BEAKER) (test 7 % hmmr=567) MONOCYTES RELATIVE PERCENT (BEAKER) (test 8 % atoo=147) EOSINOPHILS RELATIVE PERCENT (BEAKER) (test 0 % tdnr=285) BASOPHILS RELATIVE PERCENT (BEAKER) (test 0 % gzfs=466) NEUTROPHILS ABSOLUTE COUNT (BEAKER) (test 20.10 K/ L 1.56-6.13 zdin=257) LYMPHOCYTES ABSOLUTE COUNT (BEAKER) (test 1.64 K/ L 1.18-3.74 glmp=510) MONOCYTES ABSOLUTE COUNT (BEAKER) (test 1.86 K/ L 0.24-0.36 wilw=215) EOSINOPHILS ABSOLUTE COUNT (BEAKER) (test 0.03 K/ L 0.04-0.36 qggj=813) BASOPHILS ABSOLUTE COUNT (BEAKER) (test 0.08 K/ L 0.01-0.08 bwfg=353) IMMATURE GRANULOCYTES-RELATIVE PERCENT (BEAKER) 1 % 0-1 (test dusi=3310)
[2017-12-24] MEDS ORDERED: ONDANSETRON 4 MG/2 ML VIAL ONE (17:47)
[2017-12-24 18:05] LABS: Absolute Lymphocytes (CBC) 2.2 K/uL (0.7-4.9); Absolute Monocytes 0.6 K/uL (0.1-1.3); Absolute Neutrophil 3.8 K/uL (1.8-8.0); Basophils % 0.6 % (0-1.3); Eosinophils % 0.6 % (0-4.4); Hematocrit 32.3 % (36.0-45.0); Lymphocytes % 32.9 % (15.3-44.8); MCH 28.6 pg (27.0-35.0); MCV 86.7 fL (80-100); MPV 7.1 fL (7.6-11.3); Monocytes % 9.2 % (3.3-12.3); RBC Red Blood Cell Count 3.72 M/uL (3.86-4.86)
[2017-12-24 18:11] LABS: Bicarbonate 32 mEq/L (21-31); Glucose Level 98 mg/dL (65-120); Potassium 3.4 mEq/L (3.6-5.0); Sodium Level 130 mEq/L (135-145)
[2017-12-24] MEDS ORDERED: FENTANYL CITR 100 MCG/2 ML ONE ×2 (18:16→19:38)
[2017-12-24 18:17] LABS: Protime INR 1.23
[2017-12-24] MEDS ORDERED: NA CHLORIDE 0.9% 1,000 ML ONE (18:17)
[2017-12-24 18:18] LABS: ALT/SGPT 8 IU/L (10-60); AST/SGOT 15 IU/L (10-42); Albumin 2.2 g/dL (3.2-5.5); Alkaline Phosphatase 140 IU/L (42-121); BUN Blood Urea Nitrogen 10 mg/dL (6-20); Bilirubin Direct 0.2 mg/dL (0-0.2); Bilirubin Total 0.7 mg/dL (0.3-1.2); Creatine Phosphokinase 6 IU/L (22-269); Glomerular Filtration Rate > 90 mL/min (=/>90)
[2017-12-24 18:20] LABS: CKMB Creatine Kinase MB 0.6 ng/ml (0.3-4.0)
[2017-12-24 18:37] LABS: Lipase < 10 U/L (22-51)
--- NOTE | 2017-12-24 19:15 | RAD REPORT ---
EXAM DESCRIPTION: CTAbdomen Pelvis W Contrast - 12/24/2017 6:49 pm CLINICAL HISTORY: Abdominal pain. Draining wound. COMPARISON: 10/24/2017, 10/10/2017 TECHNIQUE: Biphasic CT imaging of the abdomen and pelvis was performed with 100 ml non-ionic IV cont rast. All CT scans are performed using dose optimization technique as appropriate and may include automated exposure control or mA/KV adjustment according to patient size. FINDINGS: The inferior lung valverde are mildly emphysematous. The liver demonstrates several small cysts. No aggressive liver lesion or biliary dilatation. The spl een, pancreas, adrenal glands and kidneys demonstrate no acute finding. Prominent benign right renal cyst is noted measuring 4 cm. Complex postsurgical changes are present in the abdomen. A left lower quadrant colostomy is noted. Sm all air-filled fistulous connection is noted from skin to the intra- abdominal cavity in the lower ab dominal region (image 59/79 - 62/79). This may communicate with a bowel loop. In addition, there is a somewhat irregular air and fluid-filled collection in the deep central pelvis measuring 5.5 x 5.4 cm . It is difficult to definitively say that this collection is part of the bowel given the complex brissa gically altered anatomy in this region. It most likely does communicate with bowel but is favored to represent a collection external to the bowel itself, potentially contained a bowel leak. No evidence of significant lymphadenopathy. No suspicious bony findings. IMPRESSION: A fistulous connection is noted between the skin at the site of surgical wound and the i ntra-abdominal cavity, probably involving a fistulous connection to bowel loops. An irregular air and fluid collection is also noted in the central pelvis (5.5 x 5.4 cm) as described above. Bowel anatomy in the abdomen and pelvis is significantly surgically altered.
--- NOTE | 2017-12-24 19:24 | RAD REPORT ---
EXAM DESCRIPTION: RAD - Chest Single View - 12/24/2017 6:22 pm CLINICAL HISTORY: Chest pain, hypertension COMPARISON: 10/27/2017, 10/18/2017 FINDINGS: Portable technique limits examination quality. The lungs are grossly clear. The heart is normal in size. No displaced fractures. IMPRESSION: No acute intrathoracic process suspected.
[2017-12-24 19:26] LABS: Urine Blood NEGATIVE (NEG); Urine Glucose NEGATIVE (NEG); Urine Protein 1+ (NEG); Urine Specific Gravity 1.015 (1.005-1.030)
[2017-12-24] MEDS ORDERED: PROMETHAZINE 25 MG/ML VIAL ONE (19:37)
--- NOTE | 2017-12-24 20:10 | EDPHYS ---
Physician Documentation [facility] Name: Rose Marie Carrasco Age: 57 yrs Sex: Female : 1960 Arrival Date: 12/24/2017 Time: 16:01 Bed 20 Private MD: ED Physician Tiago Salcido HPI: 12/24 18:09 This 57 yrs old Female presents to ER via Wheelchair with complaints of snw Incisional Drainage. 18:09 Onset: The symptoms/episode began/occurred acutely. Associated signs and symptoms: snw Pertinent positives: abdominal pain, nausea, Pertinent negatives: fever. Modifying factors: The patient symptoms are alleviated by nothing. The patient has experienced similar episodes in the past, multiple times, chronically. The patient has been recently seen by a physician: with similar presenting complaints, pt has had 9 abd surgeries since September 2017. Last 1.5 weeks ago, Daughter has been cleaning and packing wound since, + dark discharge x 1 day. + nausea, abdominal pain, no fever. Historical: - Allergies: 16:25 No Known Allergies; hb - PMHx: 16:25 COPD; Hypertension; hb - PSHx: 16:25 Hysterectomy; Appendectomy; Bowel Obstruction; Colostomy; hb - Immunization history:: Adult Immunizations up to date. - Social history:: Smoking status: Patient/guardian denies using tobacco. ROS: 18:09 Constitutional: Negative for fever, chills, and weight loss Eyes: Negative for injury, snw pain, redness, and discharge, ENT: Negative for injury, pain, and discharge, Neck: Negative for injury, pain, and swelling. 18:09 Cardiovascular: Negative for chest pain, palpitations, and edema, Respiratory: Negative for shortness of breath, cough, wheezing, and pleuritic chest pain, Back: Negative for injury and pain, : Negative for injury, bleeding, discharge, and swelling, MS/Extremity: Negative for injury and deformity, Skin: Negative for injury, rash, and discoloration, Neuro: Negative for headache, weakness, numbness, tingling, and seizure. 18:09 Abdomen/GI: Positive for abdominal pain, drainage from surgical wound. Exam: 17:58 Respiratory: Lungs have equal breath sounds bilaterally, clear to auscultation and snw percussion. No rales, rhonchi or wheezes noted. No increased work of breathing, no retractions or nasal flaring. Back: No spinal tenderness. No costovertebral tenderness. Full range of motion. Skin: Warm, dry with normal turgor. Normal color with no rashes, no lesions, and no evidence of cellulitis. MS/ Extremity: Pulses equal, no cyanosis. Neurovascular intact. Full, normal range of motion. Neuro: Awake and alert, GCS 15, oriented to person, place, time, and situation. Cranial nerves II-XII grossly intact. Motor strength 5/5 in all extremities. Sensory grossly intact. Cerebellar exam normal. Normal gait. 17:58 Constitutional: This is a frail, thin patient who is awake, alert, and in no acute distress. Appears dry. Head/Face: Normocephalic, atraumatic. Eyes: Pupils equal round and reactive to light, extra-ocular motions intact. Lids and lashes normal. Conjunctiva and sclera are non-icteric and not injected. Cornea within normal limits. Periorbital areas with no swelling, redness, or edema. ENT: Nares patent. No nasal discharge, no septal abnormalities noted. Tympanic membranes are normal and external auditory canals are clear. Oropharynx with no redness, swelling, or masses, exudates, or evidence of obstruction, uvula midline. Mucous membranes dry. Neck: Trachea midline, no thyromegaly or masses palpated, and no cervical lymphadenopathy. Supple, full range of motion without nuchal rigidity, or vertebral point tenderness. No Meningismus. Chest/axilla: Normal chest wall appearance and motion. Nontender with no deformity. No lesions are appreciated. 17:58 Cardiovascular: Rate: tachycardic, Heart sounds: normal. 17:58 Abdomen/GI: Inspection: scar(s), are noted in the , colostomy to left lower quad, ventral surgical wound with packing, distal area of wound with discharge of same color, consistency of colostomy drainage, Bowel sounds: diminished, Palpation: mild abdominal tenderness, in all quadrants. Vital Signs: 16:24 BP 103 / 72; Pulse 104; Resp 16; Temp 98.5(O); Pulse Ox 98% ; Weight 45.36 kg; Height 5 hb ft. 2 in. (157.48 cm); Pain 8/10; 17:30 BP 105 / 78; Pulse 99; Resp 18; Pulse Ox 100% on R/A; hj 18:30 BP 116 / 64; Pulse 95; Resp 18; Pulse Ox 100% on R/A; hj 19:15 BP 119 / 69; Pulse 88; Resp 20; Pulse Ox 96% ; bp 20:00 BP 102 / 66; Pulse 83; Resp 16; Pulse Ox 97% ; bp 21:00 BP 107 / 74; Pulse 88; Resp 16; Pulse Ox 96% ; bp 16:24 Body Mass Index 18.29 (45.36 kg, 157.48 cm) hb MDM: 16:30 Patient medically screened. snw 20:11 Data reviewed: vital signs, nurses notes. Data interpreted: Pulse oximetry: on room air snw is 100 %. Interpretation: normal. 20:11 Counseling: I had a detailed discussion with the patient and/or guardian regarding: the snw historical points, exam findings, and any diagnostic results supporting the discharge/admit diagnosis, lab results, radiology results, the need to transfer to another facility, for higher level of care, [facility] does not immediately have the required specialist. Physician consultation: Dr. Ray was called at 20:12, was contacted at 20:12, regarding regarding transfer, to [facility]. Dr. Ray kindly accepts pt in transfer. 12/24 17:32 Order name: T\T\S; Complete Time: 19:02 snw 12/24 17:32 Order name: Basic Metabolic Panel; Complete Time: 18:37 snw 12/24 17:32 Order name: Blood Culture Adult (2) snw 12/24 17:32 Order name: CBC with Diff; Complete Time: 18:14 snw 12/24 17:32 Order name: Ckmb; Complete Time: 18:37 snw 12/24 17:32 Order name: CPK; Complete Time: 18:37 snw 12/24 17:32 Order name: Lactate; Complete Time: 18:21 snw 12/24 17:32 Order name: LFT's; Complete Time: 18:37 snw 12/24 17:32 Order name: Lipase; Complete Time: 18:37 snw 12/24 17:32 Order name: Procalcitonin; Complete Time: 18:38 snw 12/24 17:32 Order name: Protime (+inr); Complete Time: 18:21 snw 12/24 17:32 Order name: Ptt, Activated; Complete Time: 18:21 snw 12/24 17:32 Order name: Wound Culture snw 12/24 19:21 Order name: Urine Dipstick--Ancillary (enter results); Complete Time: 19:34 em1 12/24 17:32 Order name: Chest Single View XRAY; Complete Time: 19:34 snw 12/24 17:32 Order name: Cardiac monitoring; Complete Time: 17:52 snw 12/24 17:32 Order name: EKG - Nurse/Tech; Complete Time: 17:52 snw 12/24 17:32 Order name: IV Saline Lock - Large Bore; Complete Time: 17:52 snw 12/24 17:32 Order name: Labs collected and sent; Complete Time: 17:52 snw 12/24 17:32 Order name: O2 Per Protocol; Complete Time: 17:52 snw 12/24 17:32 Order name: O2 Sat Monitoring; Complete Time: 17:52 snw 12/24 17:32 Order name: Urine Dipstick-Ancillary (obtain specimen); Complete Time: 19:18 snw 12/24 17:32 Order name: Wound Care; Complete Time: 18:52 snw 12/24 17:34 Order name: CT Abd/Pelvis - W/Contrast; Complete Time: 19:21 snw 12/24 17:32 Order name: Wound dressing; Complete Time: 18:52 snw Administered Medications: 07:45 Drug: NS 0.9% 1000 ml Route: IV; Rate: 125 ml/hr; Site: right antecubital; hj 20:49 Follow up: IV Status: Infusion continued upon transfer bp 17:45 Drug: fentaNYL (PF) 25 mcg Route: IVP; Site: right antecubital; hj 18:52 Follow up: Response: No adverse reaction; Pain is decreased hj 17:45 Drug: Zofran 4 mg Route: IVP; Site: right antecubital; hb 18:52 Follow up: Response: No adverse reaction; Nausea is decreased hj 19:28 Drug: fentaNYL (PF) 25 mcg Route: IVP; Site: left antecubital; bp 20:15 Follow up: Response: Pain is decreased bp 19:28 Drug: Phenergan 6.25 mg Route: IVP; Site: left antecubital; bp 20:15 Follow up: Response: Pain is decreased bp 20:40 Drug: Flagyl 500 mg Volume: 100 ml; Route: IVPB; Rate: 200 ml/hr; Infused Over: 30 bp mins; Site: left antecubital; 20:49 Follow up: IV Status: Infusion continued upon transfer bp Disposition: 12/25 07:07 Co-signature as Attending Physician, Tiago Salcido MD. rn Disposition: 12/24/17 20:09 Transfer ordered to [facility]. Diagnosis is Abdominal fistula. - Reason for transfer: Higher level of care. - Accepting physician is Dr. Ray. - Condition is Fair. - Problem is an acute exacerbation. - Symptoms have worsened. Signatures: Dispatcher [employer] EDMS Arpita Munguia, POND SUPERVISOR-C POND SUPERVISOR-Csnw Tiago Salcido MD MD rn Joaquin, Henry, RN RN hj Baxter, Heather, RN RN hb Peltier, Brian, RN RN bp Corrections: (The following items were deleted from the chart) 12/24 18:14 17:58 Constitutional: This is a well developed, well nourished patient who is awake, snw alert, and in no acute distress. Head/Face: Normocephalic, atraumatic. Eyes: Pupils equal round and reactive to light, extra-ocular motions intact. Lids and lashes normal. Conjunctiva and sclera are non-icteric and not injected. Cornea within normal limits. Periorbital areas with no swelling, redness, or edema. ENT: Nares patent. No nasal discharge, no septal abnormalities noted. Tympanic membranes are normal and external auditory canals are clear. Oropharynx with no redness, swelling, or masses, exudates, or evidence of obstruction, uvula midline. Mucous membranes moist. Neck: Trachea midline, no thyromegaly or masses palpated, and no cervical lymphadenopathy. Supple, full range of motion without nuchal rigidity, or vertebral point tenderness. No Meningismus. Chest/axilla: Normal chest wall appearance and motion. Nontender with no deformity. No lesions are appreciated. snw
[2017-12-24] MEDS ORDERED: METRONIDAZOLE 500mg IVPB 500 MG/100 ML BAG IV ONE (21:04)
--- NOTE | 2017-12-24 21:04 | ER ---
Nurse's Notes [facility] Name: Rose Marie Carrasco Age: 57 yrs Sex: Female : 1960 Arrival Date: 12/24/2017 Time: 16:01 Bed 20 Private MD: Diagnosis: Abdominal fistula Presentation: 12/24 16:22 Presenting complaint: Patient states: Draining surgical wound on abdomen that is hb draining dark brown fluid since this morning. Multiple bowel surgeries since September. Transition of care: patient was not received from another setting of care. Onset of symptoms was December 24, 2017. Care prior to arrival: None. 16:22 Method Of Arrival: Wheelchair hb 16:22 Acuity: MAU 3 hb Triage Assessment: 16:36 General: Appears in no apparent distress. uncomfortable, Behavior is calm, cooperative, hj appropriate for age. Pain:. Historical: - Allergies: 16:25 No Known Allergies; hb - PMHx: 16:25 COPD; Hypertension; hb - PSHx: 16:25 Hysterectomy; Appendectomy; Bowel Obstruction; Colostomy; hb - Immunization history:: Adult Immunizations up to date. - Social history:: Smoking status: Patient/guardian denies using tobacco. Screenin:36 Abuse screen: Denies threats or abuse. Denies injuries from another. Nutritional hj screening: No deficits noted. Tuberculosis screening: No symptoms or risk factors identified. Fall Risk None identified. Assessment: 16:23 General: Appears in no apparent distress. uncomfortable, slender, Behavior is calm, hj cooperative, appropriate for age. Pain: Complains of pain in abdomen. Neuro: Level of Consciousness is awake, alert, obeys commands, Oriented to person, place, time, situation, Appropriate for age. Cardiovascular: Capillary refill < 3 seconds Patient's skin is warm and dry. Respiratory: Airway is patent Respiratory effort is even, unlabored, Respiratory pattern is regular, symmetrical. GI: Abdomen is. : No signs and/or symptoms were reported regarding the genitourinary system. EENT: No signs and/or symptoms were reported regarding the EENT system. Derm: No signs and/or symptoms reported regarding the dermatologic system. Musculoskeletal: No signs and/or symptoms reported regarding the musculoskeletal system. 17:22 Reassessment: provider in room;. hj 18:10 Derm: Skin red on the surrounding tissues with drains the looks like coming from the hj colostomy bag; Wound noted abdomen. 18:20 Reassessment: Patient and/or family updated on plan of care and expected duration. Pain hj level reassessed. Patient is alert, oriented x 3, equal unlabored respirations, skin warm/dry/pink. wound dressing wet to dry done packed with mini kerlix, with medipore on top; wound culture specimen sent to lab; Patient states symptoms have improved. 18:44 Reassessment: to CT;. hj 19:00 Reassessment: RECD REPORT FROM NICHOLAS MCGEE. 57YO WF P/W WOUND DEHISCENCE AND DRAINAGE S/P bp ABD SURGERY. PT IS EMACIATED AND LETHARGIC, BUT AO4 WITH STABLE VS ON MONITOR. CT RESULTS PENDING, WOUND DRESSING IN PLACE. 20:00 Reassessment: ALL CURRENT ORDERS COMPLETED, PT TO BE TRANSFERRED. bp 21:00 Reassessment: EMS AT B/S FOR TRANSPORT. bp Vital Signs: 16:24 BP 103 / 72; Pulse 104; Resp 16; Temp 98.5(O); Pulse Ox 98% ; Weight 45.36 kg; Height 5 hb ft. 2 in. (157.48 cm); Pain 8/10; 17:30 BP 105 / 78; Pulse 99; Resp 18; Pulse Ox 100% on R/A; hj 18:30 BP 116 / 64; Pulse 95; Resp 18; Pulse Ox 100% on R/A; hj 19:15 BP 119 / 69; Pulse 88; Resp 20; Pulse Ox 96% ; bp 20:00 BP 102 / 66; Pulse 83; Resp 16; Pulse Ox 97% ; bp 21:00 BP 107 / 74; Pulse 88; Resp 16; Pulse Ox 96% ; bp 16:24 Body Mass Index 18.29 (45.36 kg, 157.48 cm) hb ED Course: 16:01 Patient arrived in ED. as 16:24 Triage completed. hb 16:24 Arm band placed on right wrist. hb 16:30 Arpita Munguia FNP-C is PHCP. snw 16:30 Tiago Salcido MD is Attending Physician. snw 16:35 Nicholas Power, EVERARDO is Primary Nurse. hj 16:37 Patient has correct armband on for positive identification. Placed in gown. Bed in low hj position. Call light in reach. Side rails up X 1. 17:45 Initial lab(s) drawn, by me, sent to lab. First set of blood cultures drawn by me. hj 18:00 Second set of blood cultures drawn by me. hj 18:11 Inserted saline lock: 22 gauge in right antecubital area, using aseptic technique. hj Blood collected. 18:21 Chest Single View XRAY In Process Unspecified. EDMS 18:49 CT completed. Patient moved to CT via stretcher. Patient moved back from CT. cw1 18:49 CT Abd/Pelvis - W/Contrast In Process Unspecified. EDMS 19:23 Urine Dipstick--Ancillary (enter results) Sent. jb5 19:23 IV discontinued, Pressure dressing applied. jb5 19:24 Inserted saline lock: 24 gauge in left antecubital area, using aseptic technique. jb5 20:36 Report given to MALLY MGCEE, [facility] 1515. bp 21:00 No provider procedures requiring assistance completed. Patient transferred, IV remains bp in place. Administered Medications: 07:45 Drug: NS 0.9% 1000 ml Route: IV; Rate: 125 ml/hr; Site: right antecubital; hj 20:49 Follow up: IV Status: Infusion continued upon transfer bp 17:45 Drug: fentaNYL (PF) 25 mcg Route: IVP; Site: right antecubital; hj 18:52 Follow up: Response: No adverse reaction; Pain is decreased hj 17:45 Drug: Zofran 4 mg Route: IVP; Site: right antecubital; hb 18:52 Follow up: Response: No adverse reaction; Nausea is decreased hj 19:28 Drug: fentaNYL (PF) 25 mcg Route: IVP; Site: left antecubital; bp 20:15 Follow up: Response: Pain is decreased bp 19:28 Drug: Phenergan 6.25 mg Route: IVP; Site: left antecubital; bp 20:15 Follow up: Response: Pain is decreased bp 20:40 Drug: Flagyl 500 mg Volume: 100 ml; Route: IVPB; Rate: 200 ml/hr; Infused Over: 30 bp mins; Site: left antecubital; 20:49 Follow up: IV Status: Infusion continued upon transfer bp Outcome: 20:09 ER care complete, transfer ordered by MD. howe 21:02 [place] by [place] [facility] [place]. bp X-rays sent w/ patient. 21:02 Condition: stable 21:02 Instructed on the need for transfer. 21:03 Patient left the ED. bp Addendum: 12/28/2017 11:08 Addendum: Culture Results: Positive wound culture. Phone call Attempt #1 [facility] s s notified and faxed over attn: EVERARDO Dumont. Signatures: Dispatcher [employer] EDMS Arpita Munguia, PRODUCTION TEAM MANAGER-C PRODUCTION TEAM MANAGER-CsnAl[place] Frost Shelby RN RN ss Anisha Em [email or web address] Nicholas Power RN RN hj Baxter, Heather, RN RN hb Broussard, Jennifer [email or web address] Jules Martinez RN RN bp Corrections: (The following items were deleted from the chart) 12/24 19:25 19:23 IV discontinued, Pressure dressing applied, jb5 jb5
[2017-12-24 21:20] VITALS: TEMP 98.8
[2017-12-24 21:24] VITALS: BP 107/74; O2SAT 96
--- NOTE | 2017-12-25 10:22 | EKG ---
Test Date: 2017-12-24 Test Time: 17:46:25 Sole Conditioner: NAKITA MEASUREMENT RESULTS: Intervals: Rate: 94 WI: 128 QRSD: 90 QT: 390 QTc: 487 [place]: P: 64 WI: 128 QRS: 66 T: 49 INTERPRETIVE STATEMENTS: Normal sinus rhythm Moderate voltage criteria for LVH, may be normal variant Nonspecific T wave abnormality Prolonged QT Abnormal ECG Compared to ECG 07/13/2014 18:41:18 No significant changes Electronically Signed On 12-25-17 10:21:25 CDT by Real Concepcion
== END 2017-12-24 21:03 | disposition short-term general hospital (02) ==
LOC: ER 15:59
DX: K63.2 Fistula of intestine (principal); I10 Essential (primary) hypertension; J44.9 Chronic obstructive pulmonary disease, unspecified
CPT/HCPCS: 36415; 71045; 74177; 80048; 80076; 81003; 82550; 82553; 83605; 83690; 84145; 85025; 85610; 85730; 86850; 86900; 86901; 87040; 87070; 87077; 87186; 87205; 93005; 99285; J2405; J2550; J3010; J7030; Q9967

== ENCOUNTER 2018-01-29 16:46 | Emergency (ER) | payer SELFPAY ==
--- OUTSIDE RECORDS SUMMARY | 2018-01-29 16:48 | XMS REPORT | Clinical Summary ---
:1960 Author Organization [facility] Address [address] [place] [address] Phone Care Team Providers Name Role Phone Unavailable Primary Care Provider Unavailable Allergies No Known Allergies Current Medications Prescription Sig. Disp. Refills Start Date End Date Status potassium chloride Take 15 mLs (20 500 mL 0 12/14/2017 Active (KAYCIEL) 20 mEq/15 mEq total) by mL mouth daily. solutionIndications: Small bowel perforation (HCC) gabapentin Take 1 capsule 90 capsule 11 01/06/2018 01/07/20 Active (NEURONTIN) 300 MG (300 mg total) 19 capsule by mouth 3 (three) times daily. magnesium oxide Take 1 tablet 270 tablet 0 01/06/2018 04/06/20 Active (MAG-OX) 400 mg (400 mg total) 18 tabletIndications: by mouth 3 Small bowel (three) times perforation (HCC) daily for 90 days. fluconazole Take 1 tablet 7 tablet 0 12/15/2017 12/15/19 Discontinued (DIFLUCAN) 100 MG (100 mg total) 18 tabletIndications: by mouth daily Small bowel for 7 days. perforation (HCC) gabapentin Take 1 capsule 63 capsule 0 12/14/2017 01/07/20 Discontinued (NEURONTIN) 100 MG (100 mg total) 18 capsuleIndications: by mouth 3 Small bowel (three) times perforation (HCC) daily for 21 days. HYDROcodone-acetamin Take 1-2 30 tablet 0 12/14/2017 01/07/20 Discontinued ophen (NORCO 5-325) tablets by 18 5-325 mg per mouth every 4 tabletIndications: (four) hours as Small bowel needed for up perforation (HCC) to 15 days. Max Daily Amount: 12 tablets magnesium oxide Take 1 tablet 270 tablet 0 12/14/2017 01/07/20 Discontinued (MAG-OX) 400 mg (400 mg total) 18 tabletIndications: by mouth 3 Small bowel (three) times perforation (HCC) daily for 90 days. methocarbamol Take 2 tablets 240 tablet 0 12/14/2017 01/14/20 (ROBAXIN) 750 MG (1,500 mg 18 tabletIndications: total) by mouth Small bowel 4 (four) times perforation (HCC) daily for 30 days. nystatin Take 5 mLs 140 mL 0 12/14/2017 12/15/19 Discontinued (MYCOSTATIN) 100,000 (500,000 Units 18 unit/mL total) by mouth suspensionIndication 4 (four) times s: Small bowel daily for 7 perforation (HCC) days. traMADol (ULTRAM) 50 Take 1 tablet 30 tablet 0 12/14/2017 01/07/20 Discontinued mg (50 mg total) 18 tabletIndications: by mouth every Small bowel 6 (six) hours perforation (HCC) as needed for up to 15 days. Max Daily Amount: [address] 1 patch 10 patch 0 12/16/2017 01/07/20 Discontinued (TRANSDERM-SCOP) 1 (1.5 mg total) 18 mg over 3 days onto the skin patchIndications: every third day Small bowel for 30 days. perforation (HCC) ondansetron (ZOFRAN, Take 1 tablet 120 tablet 1 12/14/2017 01/14/20 HYDROCHLORIDE,) 4 (4 mg total) by 18 MG mouth every 6 tabletIndications: (six) hours as Small bowel needed for perforation (HCC) Nausea for up to 30 days. fluconazole Take 1 tablet 8 tablet 0 12/15/2017 12/24/19 (DIFLUCAN) 100 MG (100 mg total) 18 tabletIndications: by mouth daily Small bowel for 8 days. perforation (HCC) nystatin Take 5 mLs 220 mL 0 12/14/2017 01/07/20 Discontinued (MYCOSTATIN) 100,000 (500,000 Units 18 unit/mL total) by mouth suspensionIndication 4 (four) times s: Small bowel daily for 11 perforation (HCC) days. cyclobenzaprine Take 1 tablet 30 tablet 0 01/06/2018 01/17/20 (FLEXERIL) 10 MG (10 mg total) 18 tablet by mouth 3 (three) times daily as needed for Muscle spasms for up to 10 days. simethicone Take 1 tablet 30 tablet 0 01/06/2018 01/17/20 (MYLICON) 80 MG (80 mg total) 18 chewable tablet by mouth every 6 (six) hours as needed for Flatulence for up to 10 days. 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 Abdominal pain 12/24/2017 Severe protein-calorie malnutrition (HCC) 11/08/2017 Small bowel perforation and open abdomen s/p washout, repair SBR x2 11/03/2017 (11/01), [Hx OSH] SBR x2, Taylor procedure, open abdomen (10/18, 2/5-7) Sepsis following intra-abdominal surgery (HCC) 11/02/2017 Overview: First operations at OSH On total parenteral nutrition (TPN) 10/29/2017 Anemia, unspecified type 10/28/2017 Hypotension 10/28/2017 Small bowel obstruction (HCC) 10/27/2017 Smoker 10/27/2017 COPD (chronic obstructive pulmonary disease) ([facility]) 10/27/2017 Encounters Date Type Specialty Care Team Description 12/24/2017 [facility] Internal [facility], Severe - Encounter Medicine protein-calorie 01/06/2018 [place], cami Duckworth, ([facility]);Small bowel perforation and Soumya Rainey open abdomen s/p F., washout, repair SBR x2 (11/01), [Hx OSH] SBR x2, Taylor procedure, open abdomen (10/18, 25-7) 12/08/2017 Anesthesia Event Gastroenterology Oliva Kumar MD 12/08/2017 Procedure Pass Gastroenterology 12/08/2017 Surgery Gastroenterology Addison Ta UPPER Timur ENDOSCOPY,BIOPSY 11/10/2017 Anesthesia Event Enrique Velázquez CRNA 11/10/2017 Procedure Pass 11/10/2017 Surgery Soumya Rainey LAPAROTOMY,EXPLORIFRAH FMD DAVID Fu 11/07/2017 Anesthesia Event Anthony Alvarez MD 11/07/2017 Procedure Pass 11/07/2017 Surgery [place] LAPAROTOMY,EXPLORAT DAVID Maza MD 11/05/2017 Anesthesia Event Jina Pascual CRNA 11/05/2017 Procedure Pass 11/05/2017 Surgery [place], LAPAROTOMY,EXPLORAT DAVID Maza MD 11/04/2017 Procedure Pass 11/04/2017 Surgery [place], EXPLORATION,ABDOMEN Torey Duckworth MD 11/03/2017 Anesthesia Event Josselin Ellis MD 11/01/2017 Orders Only General Internal Medicine 11/01/2017 Procedure Pass 11/01/2017 Soumya Watson,ABDOMEN FMD Tank 10/31/2017 Anesthesia Event Tonja River MD 10/27/2017 [facility] Internal [facility], Small bowel - Encounter Medicine Torey Duckworth, perforation and 12/14/2017 open abdomen s/p [place], Addison washout, repair SBR Timur x2 (11/01), [Hx OSH] SBR x2, Taylor procedure, open abdomen (10/18, 10/24-) (Primary Dx);Open wound of anterior abdominal wall with complication, initial encounter;Perforate d viscus;Hyperglycemi a;Moderate protein-calorie malnutrition (HCC);Other emphysema (HCC);On total parenteral nutrition (TPN);Smoker;Acute blood loss anemia;Leukocytosis , unspecified type;Hypokalemia after 01/28/2017 Social History Tobacco Use Types Packs/Day Years Used Date Former Smoker Cigarettes Quit: 09/19/2017 Smokeless Tobacco: Never Used Alcohol Use Drinks/Week oz/Week Comments Yes Sex Assigned at Date Recorded Not on file Last Filed Vital Signs Vital Sign Reading Time Taken Blood Pressure 142/67 01/06/2018 7:55 AM CDT Pulse 104 01/06/2018 7:55 AM CDT Temperature 37.4 C (99.3 F) 01/06/2018 7:55 AM CDT Respiratory Rate 18 01/06/2018 7:55 AM CDT Oxygen Saturation 95% 01/06/2018 7:55 AM CDT Inhaled Oxygen Concentration - - Weight 40.2 kg (88 lb 11.2 oz) 01/05/2018 1:00 PM CDT Height 157.5 cm (5' 2") 12/28/2017 7:33 AM CDT Body Mass Index 16.22 01/05/2018 1:00 PM CDT Plan of Treatment Not on file Procedures Procedure Name Priority Date/Time Associated Diagnosis Comments UPPER ENDOSCOPY,BIOPSY 12/08/2017 10:00 AM Epigastric abdominal CDT pain LAPAROTOMY,EXPLORATORY 11/10/2017 3:[address] SWEEPER BLEEDING Special Needs EMERGENCY-TO BE DONE NOW!!! WASHOUT,ABDOMINAL 11/07/2017 9:[address] SWEEPER OPEN ABDOMEN LAPAROTOMY,EXPLORATORY 11/07/2017 9:[address] SWEEPER OPEN ABDOMEN LAPAROTOMY,EXPLORATORY 11/05/2017 8:[address] SWEEPER S/P EX LAP CLOSURE,ESOPHAGOSTOMY/ 11/04/2017 12:[address] SWEEPER Ischemic bowel disease FISTULA-THORACIC/ ABDOMINAL (HCC) WASHOUT,ABDOMINAL 11/04/2017 12:[address] SWEEPER Ischemic bowel disease (HCC) EXPLORATION,ABDOMEN 11/04/2017 12:[address] SWEEPER Ischemic bowel disease (HCC) EXPLORATION,ABDOMEN 11/01/2017 10:[address] SWEEPER OPEN ABDOMEN, ISCHEMIC BOWEL Special Needs (REQ TF) after 01/28/2017 Results Prealbumin (01/06/2018 4:36 AM)Only the most recent of8 resultswithin the time period is included. Component Value Ref Range Prealbumin 6 (L) 14 - 45 mg/dL Specimen Performing Laboratory Blood - Central Venous Line [address] [address] Phosphorus (01/06/2018 4:36 AM)Only the most recent of70 resultswithin the time period is included. Component Value Ref Range Phosphorus 4.3 2.3 - 4.7 mg/dL Specimen Performing Laboratory Blood - Central Venous Line [address] [address] Magnesium (01/06/2018 4:36 AM)Only the most recent of71 resultswithin the time period is included. Component Value Ref Range Magnesium 1.7 1.6 - 2.6 mg/dL Specimen Performing Laboratory Blood - Central Venous Line [address] [address] Hepatic function panel (01/06/2018 4:36 AM)Only the most recent of15 resultswithin the time period is included. Component Value Ref Range Protein, Total 5.0 (L) 6.0 - 8.3 gm/dL Albumin 2.1 (L) 3.5 - 5.0 g/dL Total Bilirubin 0.2 0.2 - 1.2 mg/dL Bilirubin, Direct 0.1 0.1 - 0.5 mg/dL Alkaline Phosphatase 282 (H) 40 - 150 U/L AST 48 (H) 5 - 34 U/L ALT 62 (H) 6 - 55 U/L Specimen Performing Laboratory Blood - Central Venous Line [address] [address] Basic Metabolic Panel (01/06/2018 4:36 AM)Only the most recent of77 resultswithin the time period is included. Component Value Ref Range Sodium 138 136 - 145 meq/L Potassium 4.0 3.5 - 5.1 meq/L Chloride 106 98 - 107 meq/L CO2 24 22 - 29 meq/L BUN 12 7 - 21 mg/dL Creatinine 0.42 (L) 0.57 - 1.25 mg/dL Glucose 83 70 - 105 mg/dL Calcium 7.9 (L) 8.4 - 10.2 mg/dL EGFR 154Comment: ESTIMATED GFR IS NOT ACCURATE mL/min/1.73 sq m CREATININE CLEARANCE IN PREDICTING GLOMERULAR FILTRATION RATE. ESTIMATED GFR IS NOT APPLICABLE FOR DIALYSIS PATIENTS. Specimen Performing Laboratory Blood - Central Venous Line [address] [address] POC-Glucose meter (01/05/2018 5:12 PM)Only the most recent of208 resultswithin the time period is included. Component Value Ref Range POC-Glucose Meter 124 (H)Comment: TESTED AT [address] 70 - 110 mg/[place] [address] Specimen Performing Laboratory Blood [address] [address] CBC (Hemogram only) (01/05/2018 11:12 AM)Only the most recent of10 resultswithin the time period is included. Component Value Ref Range WBC 6.9 3.5 - 10.5 K/L RBC 2.71 (L) 3.93 - 5.22 M/L Hemoglobin 7.6 (L) 11.2 - 15.7 GM/DL Hematocrit 24.3 (L) 34.1 - 44.9 % MCV 89.7 79.4 - 94.8 fL MCH 28.0 25.6 - 32.2 pg MCHC 31.3 (L) 32.2 - 35.5 GM/DL RDW 15.3 (H) 11.7 - 14.4 % Platelets 425 150 - 450 K/CU MM MPV 9.0 (L) 9.4 - 12.3 fL nRBC 0 0 - 0 /100 WBC Specimen Performing Laboratory Blood [address] [address] CBC with platelet count + automated diff (01/03/2018 5:49 AM)Only the most recent of47 resultswithin the time period is included. Component Value Ref Range WBC 6.4 3.5 - 10.5 K/L RBC 2.56 (L) 3.93 - 5.22 M/L Hemoglobin 7.0 (L) 11.2 - 15.7 GM/DL Hematocrit 23.0 (L) 34.1 - 44.9 % MCV 89.8 79.4 - 94.8 fL MCH 27.3 25.6 - 32.2 pg MCHC 30.4 (L) 32.2 - 35.5 GM/DL RDW 15.5 (H) 11.7 - 14.4 % Platelets 401 150 - 450 K/CU MM MPV 9.1 (L) 9.4 - 12.3 fL nRBC 0 0 - 0 /100 WBC % Neutros 55 % % Lymphs 32 % % Monos 10 % % Eos 3 % % Baso 1 % # Neutros 3.50 1.56 - 6.13 K/L # Lymphs 2.07 1.18 - 3.74 K/L # Monos 0.61 (H) 0.24 - 0.36 K/L # Eos 0.16 0.04 - 0.36 K/L # Baso 0.03 0.01 - 0.08 K/L Immature Granulocytes-Relative 0 0 - 1 % Specimen Performing Laboratory Blood - Central Venous Line [address] [address] CBC with platelet count + automated diff (01/03/2018 5:49 AM)Only the most recent of47 resultswithin the time period is included. Specimen Performing Laboratory Blood Narrative The following orders were created for panel order CBC with platelet count + automated diff. Procedure Abnormality Status --------- ------ CBC with platelet count ...[[id number]]AbnormalFinal result Please view results for these tests on the individual orders. C-Reactive Protein (01/02/2018 2:24 AM) Component Value Ref Range CRP 2.13 (H) 0.00 - 0.50 mg/dL Specimen Performing Laboratory Blood [address] [address] Triglycerides (01/02/2018 2:24 AM)Only the most recent of8 resultswithin the time period is included. Component Value Ref Range Triglycerides 144Comment: Specimen slightly hemolyzed mg/dL Specimen Performing Laboratory Blood [address] [address] Narrative TRIGLYCERIDE REFERENCE RANGE Low Risk<150 Borderline Risk 150-199 High [id number] Very High Risk >=500 PT/aPTT (12/27/2017 4:06 AM)Only the most recent of8 resultswithin the time period is included. Component Value Ref Range Protime 16.1 (H) 11.7 - 14.7 seconds INR 1.3 <=5.9 PTT 38.8 (H) 22.5 - 36.0 seconds Specimen Performing Laboratory Blood [address] [address] Narrative RECOMMENDED COUMADIN/WARFARIN INR THERAPY RANGES STANDARD DOSE: 2.0 - 3.0 Includes: PROPHYLAXIS for venous thrombosis, systemic embolization; TREATMENT for venous thrombosis and/or pulmonary embolus. HIGH RISK: Target INR is 2.5-3.5 for patients with mechanical heart valves. Prothrombin time/INR (12/27/2017 4:06 AM)Only the most recent of47 resultswithin the time period is included. Component Value Ref Range Protime 16.1 (H) 11.7 - 14.7 seconds INR 1.3 <=5.9 Specimen Performing Laboratory Blood [address] [address] Narrative RECOMMENDED COUMADIN/WARFARIN INR THERAPY RANGES STANDARD DOSE: 2.0 - 3.0 Includes: PROPHYLAXIS for venous thrombosis, systemic embolization; TREATMENT for venous thrombosis and/or pulmonary embolus. HIGH RISK: Target INR is 2.5-3.5 for patients with mechanical heart valves. XR chest 1 view portable / bedside (12/26/2017 9:48 AM)Only the most recent of8 resultswithin the time period is included. Specimen Performing Laboratory GE RIS Narrative FINAL REPORT Chest one view INDICATION: PICC line insertion. COMPARISON: 11/11/2017 IMPRESSION: A right PICC line extends to the SVC. No pneumothorax is seen. There is underlying emphysema with coarsened interstitial markings and mild basilar opacities could reflect atelectasis. Pneumonitis should be excluded clinically. Biapical scarring is stable. No significant pleural effusion is seen. Cardiac silhouette size is stable. The bones appear unchanged. Signed: Jabari Grace MD Report Verified Date/Time:12/26/2017 10:10:41 Reading Location: [facility] Radiology Reading Room Procedure Note Interface, External Ris In - 12/26/2017 10:22 AM CDT FINAL REPORT Chest one view INDICATION: PICC line insertion. COMPARISON: 11/11/2017 IMPRESSION: A right PICC line extends to the SVC. No pneumothorax is seen. There is underlying emphysema with coarsened interstitial markings and mild basilar opacities could reflect atelectasis. Pneumonitis should be excluded clinically. Biapical scarring is stable. No significant pleural effusion is seen. Cardiac silhouette size is stable. The bones appear unchanged. Signed: Jabari Grace MD Report Verified Date/Time: 12/26/2017 10:10:41 Reading Location: [facility] Radiology Reading Room Manual Differential (12/26/2017 4:45 AM)Only the most recent of8 resultswithin the time period is included. Component Value Ref Range Total Counted Platelet Morphology Normal Atypical Lymphs Present Polychromasia 1+ few Specimen Performing Laboratory Blood - Arm, Right [address] [address] aPTT (12/26/2017 4:45 AM)Only the most recent of5 resultswithin the time period is included. Component Value Ref Range PTT 39.6 (H) 22.5 - 36.0 seconds Specimen Performing Laboratory Blood - Arm, [address] [address] PERMANENT LAB REPORT - SCAN (12/15/2017 2:10 PM)RHYTHM STRIP - SCAN (2017 2:10 PM)Calcium, Ionized (12/14/2017 6:12 AM)Only the most recent of43 resultswithin the time period is included. Component Value Ref Range Calcium, Ion 0.98 (L) 1.12 - 1.27 mmol/L pH, Blood 7.46 Specimen Performing Laboratory Blood - Line, Venous [facility] [address] [address] REPORT OF PROCEDURE - ENDOSCOPY URL (12/13/2017 9:44 AM)CT abdomen/pelvis with IV contrast (12/12/2017 7:17 PM)Only the most recent of4 resultswithin the time period is included. Specimen Performing Laboratory Mlog RIS Narrative FINAL REPORT CT scan of [...] MD Report Verified Date/Time:12/12/2017 20:56:49 Reading Location: [facility] C013 Consult Reading Room Procedure Note Interface, [...] Report Verified Date/Time: 12/12/2017 20:56:49 Reading Location: [address] Consult Reading Room Fungus culture + smear (12/08/2017 11:05 AM)Only the most recent of4 resultswithin the time period is included. Component Value Ref Range Result 2+ Maryanne parapsilosis (A) Fungus Smear No fungi seen Specimen Performing Laboratory [place] - Esophagus [address] [address] Tissue Exam (12/08/2017 10:36 AM)Only the most recent of2 resultswithin the time period is included. Component Value Ref Range Case Report Surgical Pathology Report Case: [id number] Authorizing Provider:Addison Taected: 12/08/2017 1036 Ordering Location: [address] Received: 12/08/2017 1356 Service Pathologist: Ze [...] FURTHER EVALUATE Signing Pathologist Direct Phone Line: [phone] COMMENT A. Small focus of duodenal mucosa [...] CMV). An addendum will follow. CPT Code(s) 10089 X 2, 87395 X 2, 69806, 91022 CLINICAL HISTORY Epigastric abdominal pain SPECIMEN SOURCE [...] Tissue - Biopsy, Gastric; Tissue - Biopsy, [facility] Esophagus [address] [place] [address] Urinalysis w/Microscopic (12/04/2017 4:03 PM)Only the most recent of3 resultswithin the time period is included. Component Value Ref Range Color, UA Yellow Clarity, UA Clear Specific [place], UA 1.008 1.001 - 1.035 pH, UA [...] Performing Laboratory Urine - Urine, Clean Catch [address] [address] Urine culture (12/04/2017 4:03 PM)Only the most recent of2 resultswithin the time period is included. Component Value Ref Range Result Result 50-59,000 col/mL Maryanne glabrata (A) Specimen Performing Laboratory Urine - Urine, Unspecified Source [address] [address] Urinalysis w/Microscopic + Reflex to Culture (11/29/2017 4:36 PM)Only the most recent of2 resultswithin the time period is included. Component Value Ref Range Color, UA Yellow Clarity, UA Clear Specific [place], UA 1.015 1.001 - 1.035 pH, UA [...] Performing Laboratory Urine - Urine, Clean Catch [address] [address] Potassium (11/21/2017 6:47 PM) Component Value Ref Range Potassium 5.4 (H) 3.5 - 5.1 meq/L Specimen Performing Laboratory Blood - Central Venous Line [address] [address] Vancomycin level, trough (11/19/2017 7:11 PM)Only the most recent of5 resultswithin the time period is included. Component Value Ref Range Vancomycin Tr 14.9 10.0 - 20.0 ug/mL Specimen Performing Laboratory Blood - Central Venous Line [address] [address] Narrative Before vanc dose TRANSFUSION SERVICE REPORT - SCAN (11/18/2017 5:40 PM)Only the most recent of9 resultswithin the time period is included.T Spot TB (11/18/2017 11:45 AM) Component Value Ref Range T-Spot TB Negative Neg Ctrl Spot Count 0 Panel A Spot 0 Panel B Spot [address] >20 Scan Result Specimen Performing Laboratory Blood [facility] [address] [facility], [address] [place] [address] HIV-1 Antigen with HIV-1/2 Antibody (11/18/2017 7:27 AM)Only the most recent of2 resultswithin the time period is included. Component Value Ref Range HIV-1 Antigen with HIV 1&2 Antibody Nonreactive Nonreactive Specimen Performing Laboratory Blood [address] [address] Hepatitis panel, acute (11/18/2017 7:27 AM) Component Value Ref Range Hep A IgM Nonreactive Nonreactive Hep B C IgM Nonreactive Nonreactive Hepatitis C Ab Nonreactive Nonreactive hepatitis B Surface Ag Nonreactive Nonreactive Specimen Performing Laboratory Blood [address] [address] Prepare plasma (11/17/2017 11:55 PM)Only the most recent of10 resultswithin the time period is included. Component Value Ref Range Unit ABO O Pos UNIT NUMBER [id number] Status TRANSFUSED Blood Bank Product FFP PRODUCT CODE N6099S89 Unit ABO O Pos UNIT NUMBER [id number] Status TRANSFUSED Blood Bank Product FFP PRODUCT CODE D1414I89 Specimen Performing Laboratory Blood SAFETRACE [place] CT drainage abdominal (11/17/2017 2:26 PM) Specimen Performing Laboratory GE RIS Narrative FINAL REPORT CT-guided drainage catheter placement dated 11/17/2017 Name of practitioner performing procedure: Lucy Peraza M.D. Names of head start assistant teacher: None Procedure: Drainage placement into the abdominal [...] performed under usual sterile technique. A 10 Frisian pigtail catheter was placed into the right [...] MD Report Verified Date/Time:11/17/2017 17:13:40 Reading Location: [facility] B1 C013Y CT Body Reading Room Procedure Note Interface, External Ris In - 11/17/2017 5:[address] SWEEPER FINAL REPORT CT-guided drainage catheter placement dated 11/17/2017 Name of practitioner performing procedure: Lucy Peraza M.D. Names of head start assistant teacher: None Procedure: Drainage placement into the abdominal [...] performed under usual sterile technique. A 10 Frisian pigtail catheter was placed into the right [...] Report Verified Date/Time: 11/17/2017 17:13:40 Reading Location: [facility] C013Y CT Body Reading Room Anaerobic culture (11/17/2017 2:17 PM)Only the most recent of3 resultswithin the time period is included. Component Value Ref Range Result Result <1+ Lactobacillus rhamnosus (A) Specimen Performing Laboratory Body Fluid - Abdomen [address] [address] Narrative NO Anaerobes Isolated Body fluid culture + gram stain (11/17/2017 2:17 PM) Component Value Ref Range Result Result 4+ Pseudomonas aeruginosa (Mucoid-phenotype) (A) Result 1+ Maryanne parapsilosis (A) Gram Stain Result <1+ WBCs Gram Stain Result 1+ gram negative rods Gram Stain Result 2+ yeast Specimen Performing Laboratory Body Fluid - Abdomen [address] [address] Organism Antibiotic Method Susceptibility Pseudomonas aeruginosa Amikacin [...] Performing Laboratory Blood - Central Venous Line [address] [address] Thromboelastograph (TEG) (11/16/2017 3:28 PM)Only the most [...] Performing Laboratory Blood - Central Venous Line [address] [address] Fibrinogen (11/16/2017 3:28 PM)Only the most recent of5 resultswithin the time period is included. Component Value Ref Range Fibrinogen 335 225 - 434 mg/dl Specimen Performing Laboratory Blood - Central Venous Line [address] [address] Type and screen, automated (11/16/2017 3:47 AM)Only the most recent of4 resultswithin the time period is included. Component Value Ref Range ABO/RH AUTOMATED (BEAKER) O POSITIVE Ab Scrn NEGATIVE Specimen Performing Laboratory Blood [address] [address] Hemoglobin and hematocrit (11/14/2017 3:57 AM)Only the most recent of24 resultswithin the time period is included. Component Value Ref Range Hemoglobin 9.6 (L) 11.2 - 15.7 GM/DL Hematocrit 29.8 (L) 34.1 - 44.9 % Specimen Performing Laboratory Blood [address] [address] Prepare Leuko-Red RBC (11/11/2017 11:54 PM)Only the most recent of5 resultswithin the time period is included. Component Value Ref Range CROSSMATCH COMPATIBLE Unit ABO O Pos UNIT NUMBER [id number] Status TRANSFUSED Blood Bank Product RED BLOOD CELLS PRODUCT CODE L4719X46 CROSSMATCH COMPATIBLE Unit ABO O Pos UNIT NUMBER [id number] Status RETURNED FROM ISSUE Blood Bank Product RED BLOOD CELLS PRODUCT CODE [id number] Specimen Performing Laboratory Other SAFETRACE [place] Prepare RBC (11/11/2017 11:54 PM)Only the most recent of4 resultswithin the time period is included. Component Value Ref Range CROSSMATCH COMPATIBLE Unit ABO O Pos UNIT NUMBER [id number] Status TRANSFUSED Blood Bank Product RED BLOOD CELLS PRODUCT CODE G5375J49 CROSSMATCH COMPATIBLE Unit ABO O Pos UNIT NUMBER [id number] Status RETURNED FROM ISSUE Blood Bank Product RED BLOOD CELLS PRODUCT CODE [id number] Specimen Performing Laboratory SAFETRACE [place] Transfuse Leuko-Red RBC (11/11/2017 9:28 PM)Only the most recent of14 resultswithin the time period is included.Blood gas, arterial (11/10/2017 1:05 PM)Only the most [...] Performing Laboratory Blood, Arterial - Line, Arterial [facility] [address] [facility] CRITICAL LABS (ABG,NA,K,H&H,GLUCOSE) (11/10/2017 8:08 AM)Only the most recent of3 resultswithin the time period is included. Specimen Performing Laboratory Blood, Arterial Narrative The following orders were created for panel order [facility] CR[facility] LAB[facility] (ABG,NA,K,H&H,GLUCOSE). Procedure Abnormality Status --------- ------ Blood gas, arterial[[id number]]AbnormalFinal result Sodium Na-Stat Lab[[id number]] NormalFinal result Potassium-Stat Lab[[id number]] AbnormalFinal result Glucose-Stat Lab[[id number]] AbnormalFinal result HGB/HCT (H&H)-Stat Lab[[id number]] Abnormal Final result Please view results for these tests on the individual orders. Potassium-Stat Lab (11/10/2017 8:08 AM)Only the most recent of3 resultswithin the time period is included. Component Value Ref Range Potassium 3.1 (L) 3.6 - 5.5 meq/L Specimen Performing Laboratory Blood, Arterial [address] [address] Sodium Na-Stat Lab (11/10/2017 8:08 AM)Only the most recent of3 resultswithin the time period is included. Component Value Ref Range Sodium 139 135 - 148 meq/L Specimen Performing Laboratory Blood, Arterial [address] [address] Glucose-Stat Lab (11/10/2017 8:08 AM)Only the most recent of3 resultswithin the time period is included. Component Value Ref Range Glucose 152 (H) 70 - 110 mg/dL Specimen Performing Laboratory Blood, [address] [address] HGB/HCT (H&H)-Stat Lab (11/10/2017 8:08 AM)Only the most recent of3 resultswithin the time period is included. Component Value Ref Range Hemoglobin 6.9 (L) 12.0 - 15.0 g/dL Hematocrit 20.0 (L) 36.0 - 45.0 % Specimen Performing Laboratory Blood, Arterial [address] [address] [employer] IBD (11/10/2017 3:56 AM) Component Value Ref Range ASCA IGA HORTENCIA 35.0 (H) <8.5 EU/ml ASCA IGG HORTENCIA 83.4 (H) <17.8 EU/ml Anti-OMPC IGA HORTENCIA 8.2 <10.9 EU/ml Anti-CBIR1 HORTENCIA 20.6 <78.4 EU/ml [id number]-[id number] IGG HORTENCIA 30.6 <44.8 EU/ml Anti-FLAX IGG HORTENCIA 39.3 (H) <33.4 EU/ml IBD-Specific PANCA Autoantibody Comment: See report <19.8 EU/ml HORTENCIA IFA Perinuclear Pattern Not Detected Not Detected DNAse Sensitivity Not Detected Not Detected ATG 16L 1 SNP ([id number]) Variant detected ECM1 SNP ([id number]) Variant detected NKX2-3 SNP ([id number]) Variant not detected STAT3 SNP ([id number]) Variant detected ICAM-1 0.54 (H) <0.54 ug/ml VCAM-1 1.36 (H) <0.68 ug/ml VEGF 1616 (H) <345 pg/ml CRP 42.9 (H) <13.2 mg/L [place]TO 161.3 (H) <10.9 mg/L Interpretation Pattern consistent with IBD Pattern not consistent with - Crohn's Disease (A) IBD Specimen Performing Laboratory Blood [employer] [address], [address] [place] [address] Blood culture (11/10/2017 3:56 AM)Only the most recent of5 resultswithin the time period is included. Component Value Ref Range Result No growth in 5 days Specimen Performing Laboratory Blood - Line, Arterial [address] [address] Sedimentation rate (11/09/2017 3:59 AM) Component Value Ref Range Sed Rate 26 0 - 30 mm/HR Specimen Performing Laboratory Blood - Line, Arterial [address] [address] CMV PCR, quantitative (11/07/2017 5:05 PM) Component Value Ref Range CMV DNA Viral Load Negative or below the linear range of the assay (<375 copies/mL) Specimen Performing Laboratory Blood [facility] [address] [place] [address] Narrative Cytomegalovirus (CMV) infection can cause significant [...] and its performance characteristics determined by the [facility] Pathology Department, Section of Molecular Pathology. [...] MD Report Verified Date/Time:11/07/2017 10:48:17 Reading Location: [facility] C0X [facility] Consult Reading Room Procedure Note Interface, External Ris In - 11/07/2017 10:[address] SWEEPER FINAL REPORT Radiograph of the abdomen, intraoperative [...] Report Verified Date/Time: 11/07/2017 10:48:17 Reading Location: [facility] C013X Ortho Consult Reading Room Prepare cryoprecipitate (11/06/2017 11:54 PM) Component Value Ref Range Unit ABO O Pos UNIT NUMBER [id number] Status TRANSFUSED Blood Bank Product CRYOPRECIPITATE PRODUCT CODE [id number] Specimen Performing Laboratory Blood [employer] [place] Transfuse cryoprecipitate (11/05/2017 9:38 AM)Only the most recent of2 resultswithin the time period is included.Platelet count (11/05/2017 9:27 AM) Component Value Ref Range Platelets 153Comment: Discordant result compared to previous 150 - 450 K/CU MM result; clinical correlation required. Specimen Performing Laboratory Blood [facility] [address] [address] XR abdomen / KUB 1 view (11/03/2017 11:29 AM)Only the most recent of2 resultswithin the time period is included. Specimen Performing Laboratory GE RIS Narrative FINAL REPORT Abdomen one view shows NG tube extending to the gastric body level. Signed: Jaiden Santana MD Report Verified Date/Time:11/03/2017 12:10:21 Reading Location: [facility] Radiology Reading Room Procedure Note Interface, External Ris In - 11/03/2017 12:[address] SWEEPER FINAL REPORT Abdomen one view shows NG tube extending to the gastric body level. Signed: Jaiden Santana MD Report Verified Date/Time: 11/03/2017 12:10:21 Reading Location: [facility] Radiology Reading Room Protein, 24 hour urine (11/02/2017 5:50 PM) Component Value Ref Range Protein, 24hr Urine 372 (H) 0 - 300 mg/24hr Volume, Urine 2325 ml Protein, Urine 16 (H) 0 - 14 mg/dL Specimen Performing Laboratory Urine - Urine, Shah [address] [address] Blood gas, venous (11/01/2017 2:52 PM) Component [...] Specimen Performing Laboratory Blood - Line, Venous [address] [address] ANESTHESIA PERIPHERAL BLOCK (11/01/2017 12:42 PM) Narrative [...] prepped and draped Patient monitoring: heart rate, shelter monitor and continuous pulse ox Block type: TAP [...] Efra Philippe MD - 11/01/2017 12:[address] SWEEPER Peripheral Block Patient location during procedure: post-op [...] prepped and draped Patient monitoring: heart rate, shelter monitor and continuous pulse ox Block type: TAP Laterality: bilateral Injection technique: single-shot Procedures: ultrasound guided and landmark technique Local infiltration: bupivicaine Infiltration strength: 0.25 % Dose: 50 mL Additives: 25cc per side with Epi 1:200,000 Needle Needle type: pa[employer]k sonotap. Needle gauge: 21 G Needle length: [...] seen Specimen Performing Laboratory Abscess - Abdomen [address] [place] [address] Surgically obtained culture + gram stain (11/01/2017 11:30 AM)Only the most recent of2 resultswithin the time period is included. Component Value Ref Range Result Result 1+ Pseudomonas aeruginosa (A) Result 1+ Maryanne albicans (A) Result 1+ Maryanne tropicalis (A) Gram Stain Result 1+ WBCs Gram Stain Result No organisms seen Specimen Performing Laboratory Abscess - Abdomen [address] [place] [address] Organism Antibiotic Method Susceptibility Pseudomonas aeruginosa Amikacin [...] Done Specimen Performing Laboratory Abscess - Abdomen [facility] [address] [address] ECG 12 lead (11/01/2017 9:33 AM) Specimen Performing Laboratory GE MUSE Narrative Ventricular Rate 101 BPM Atrial Rate 101 BPM P-R Interval 142 ms QRS Duration 74 ms Q-T Interval 342 ms QTC Calculation(Bazett) 443 ms P [place] 45 degrees R [place] 69 degrees T [place] 73 degrees Sinus tachycardia Minimal voltage criteria for LVH, may be normal variant Borderline ECG No previous ECGs available Confirmed by MD Brewster Roberto ([id number]) on 11/01/2017 1:22:04 PM Procedure Note Interface, External Ris In - 11/01/2017 1:[address] SWEEPER Ventricular Rate 101 BPM Atrial Rate 101 BPM P-R Interval 142 ms QRS Duration 74 ms Q-T Interval 342 ms QTC Calculation(Bazett) 443 ms P [place] 45 degrees R [place] 69 degrees T [place] 73 degrees Sinus tachycardia Minimal voltage criteria for LVH, may be normal variant Borderline ECG No previous ECGs available Confirmed by MD Brewster Roberto ([id number]) on 11/01/2017 1:22:04 PM Anti-Neutrophil Cytoplasmic Ab (ANCA) (10/30/2017 8:29 PM) Component Value Ref Range Proteinase-3 Ab <1.0 <1.0 AI Comment: <1.0 AI No Antibody Detected > or=1.0 AI Antibody Detected Autoantibodies to proteinase-3 (SC-3) are accepted as characteristic for granulomatosis with polyangiitis (GPA, Mary Anne's), and are detectable in 95% of the histologically proven cases. The cytoplasmic IFA pattern, (c-ANCA), is based largely on autoantibody to SC-3 which serves as the primary antigen. These [...] Specimen Performing Laboratory Blood [facility] [address] [address] Narrative Performing Lab [facility] [address] [address] Blu Downey MD, PhD Anti-Nuclear Antibody (BECCA) (10/30/2017 8:29 PM) Component Value Ref Range BECCA Negative Negative Specimen Performing Laboratory Blood [address] [address] Sodium, random urine (10/30/2017 1:02 PM) Component Value Ref Range Sodium Urine 82 meq/L Specimen Performing Laboratory Urine - Urine, [address] [address] Narrative Reference Range: No Normals Eosinophil smear (10/30/2017 1:02 PM) Component Value Ref Range Eosinophil Smear Rare EOS=less than 5% WBCs seen are EOS (A)Comment: Many No EOS seen yeasts seen Specimen Performing Laboratory Urine - Urine, [address] [address] CTA abdomen & pelvis (10/28/2017 9:41 PM) [...] MD Report Verified Date/Time:10/29/2017 12:50:17 Reading Location: [place] [address] Cardiology MRI Procedure Note Interface, External Ris In - 10/29/2017 12:[address] SWEEPER FINAL REPORT CT angiogram of the abdomen [...] Report Verified Date/Time: 10/29/2017 12:50:17 Reading Location: [place] [address] Cardiology MRI (10/28/2017 3:45 AM) Component Value Ref Range Scan Result Specimen Performing Laboratory Blood [facility] [address] [address] Narrative Result comments: Coagulase Negative Staphylococcus Species [...] required. This sample was tested at the [facility] Clinical Microbiology Laboratory using the [employer] Blood Culture ID Panel. This test is FDA cleared for in vitro diagnostic use and has been verified and approved by the [facility] Clinical Microbiologylaboratory for clinical use. Reference Range: Not Detected Lactic acid, venous, whole blood (10/27/2017 8:29 PM) Component Value Ref Range Lactate, Venous 1.2 0.5 - 2.2 mmol/L Specimen Performing Laboratory Blood [address] [address] Narrative Effective 01/21/2016: Units/Reference Range Change New: [...] FOR DIALYSIS PATIENTS. Specimen Performing Laboratory Blood [address] [address] after 01/28/2017
--- OUTSIDE RECORDS SUMMARY | 2018-01-29 16:57 | XMS REPORT ---
:1960 [facility] Address [address] [place] [address] Care Team Providers Name Role Phone ROCÍO PEREZ Unavailable Unavailable SAIDA PERKINS Unavailable Unavailable Problems This patient has no known problems. Allergies, Adverse Reactions, Alerts This patient has no known allergies or adverse reactions. Medications This patient has no known medications. Results Test Description Test Time Test Comments Text Results Atomic Results Result Comments BASIC METABOLIC PANEL 2018-01-06 06:37:00 Test Item Value Reference Range Comments SODIUM (BEAKER) (test 138 meq/L 136-145 slez=114) POTASSIUM (BEAKER) (test 4.0 meq/L 3.5-5.1 cxog=401) CHLORIDE (BEAKER) (test 106 meq/L 98-107 jcmr=122) CO2 (BEAKER) (test 24 meq/L 22-29 okpo=508) BLOOD UREA NITROGEN 12 mg/dL 7-21 (BEAKER) (test cbzl=214) CREATININE (BEAKER) (test 0.42 mg/dL 0.57-1.25 jeda=154) GLUCOSE RANDOM (BEAKER) 83 mg/dL 70-105 (test rynm=734) CALCIUM (BEAKER) (test 7.9 mg/dL 8.4-10.2 hjgb=782) EGFR (BEAKER) (test 154 mL/min/1.73 sq m ESTIMATED GFR IS NOT mspm=5695) ACCURATE CREATININE CLEARANCE IN PREDICTING GLOMERULAR FILTRATION RATE. ESTIMATED GFR IS NOT APPLICABLE FOR DIALYSIS PATIENTS. [id number] 06:36:00 Test Item Value Reference Range Comments PHOSPHORUS (BEAKER) (test qqna=152) 4.3 mg/dL 2.3-4.7 [id number] 06:36:00 Test Item Value Reference Range Comments MAGNESIUM (BEAKER) (test igrr=120) 1.7 mg/dL 1.6-2.6 HEPATIC FUNCTION [id number] 06:36:00 Test Item Value Reference Range Comments TOTAL PROTEIN (BEAKER) (test brox=320) 5.0 gm/dL 6.0-8.3 ALBUMIN (BEAKER) (test okqk=2302) 2.1 g/dL 3.5-5.0 BILIRUBIN TOTAL (BEAKER) (test ucoe=325) 0.2 mg/dL 0.2-1.2 BILIRUBIN DIRECT (BEAKER) (test iyvd=458) 0.1 mg/dL 0.1-0.5 ALKALINE PHOSPHATASE (BEAKER) (test xajt=615) 282 U/L 40-150 AST (SGOT) (BEAKER) (test meai=014) 48 U/L 5-34 ALT (SGPT) (BEAKER) (test tqss=139) 62 U/L 6-55 [id number] 06:01:00 Test Item Value Reference Range Comments PREALBUMIN (BEAKER) (test kcam=656) 6 mg/dL 14-45 POCT-GLUCOSE [id number] 17:51:00 Test Item Value Reference Range Comments POC-GLUCOSE METER (BEAKER) 124 mg/dL 70-110 TESTED AT [address] (test siqm=1165) [facility] [address] POCT-GLUCOSE [id number] 12:37:00 Test Item Value Reference Range Comments POC-GLUCOSE METER (BEAKER) 111 mg/dL 70-110 TESTED AT [address] (test hvrg=2620) [facility] [address] CBC (HEMOGRAM ONLY)2018-01-05 11:31:00 Test Item Value Reference Range Comments WHITE BLOOD CELL COUNT (BEAKER) (test ugzu=559) 6.9 K/ L 3.5-10.5 RED BLOOD CELL COUNT (BEAKER) (test ushf=791) 2.71 M/ L 3.93-5.22 HEMOGLOBIN (BEAKER) (test vdof=079) 7.6 GM/DL 11.2-15.7 HEMATOCRIT (BEAKER) (test gler=159) 24.3 % 34.1-44.9 MEAN CORPUSCULAR VOLUME (BEAKER) (test skhj=891) 89.7 fL 79.4-94.8 MEAN CORPUSCULAR HEMOGLOBIN (BEAKER) (test 28.0 pg 25.6-32.2 hjcb=556) MEAN CORPUSCULAR HEMOGLOBIN CONC (BEAKER) (test 31.3 GM/DL 32.2-35.5 mswa=445) RED CELL DISTRIBUTION WIDTH (BEAKER) (test 15.3 % 11.7-14.4 ecvs=333) PLATELET COUNT (BEAKER) (test nlgs=663) 425 K/CU MM 150-450 MEAN PLATELET VOLUME (BEAKER) (test stmf=317) 9.0 fL 9.4-12.3 NUCLEATED RED BLOOD CELLS (BEAKER) (test 0 /100 WBC 0-0 pakj=814) BASIC METABOLIC [id number] 05:55:00 Test Item Value Reference Range Comments SODIUM (BEAKER) (test 135 meq/L 136-145 qqya=493) POTASSIUM (BEAKER) (test 4.1 meq/L 3.5-5.1 gutq=051) CHLORIDE (BEAKER) (test 102 meq/L 98-107 bnee=770) CO2 (BEAKER) (test 26 meq/L 22-29 muys=527) BLOOD UREA NITROGEN 13 mg/dL 7-21 (BEAKER) (test wkvu=315) CREATININE (BEAKER) (test 0.41 mg/dL 0.57-1.25 ucql=520) GLUCOSE RANDOM (BEAKER) 103 mg/dL 70-105 (test mpeo=996) CALCIUM (BEAKER) (test 7.9 mg/dL 8.4-10.2 zbni=895) EGFR (BEAKER) (test 159 mL/min/1.73 sq m ESTIMATED GFR IS NOT xsuc=9310) ACCURATE CREATININE CLEARANCE IN PREDICTING GLOMERULAR FILTRATION RATE. ESTIMATED GFR IS NOT APPLICABLE FOR DIALYSIS PATIENTS. HEPATIC FUNCTION [id number] 05:55:00 Test Item Value Reference Range Comments TOTAL PROTEIN (BEAKER) (test xaza=577) 5.0 gm/dL 6.0-8.3 ALBUMIN (BEAKER) (test gfst=6956) 2.1 g/dL 3.5-5.0 BILIRUBIN TOTAL (BEAKER) (test xjte=060) 0.2 mg/dL 0.2-1.2 BILIRUBIN DIRECT (BEAKER) (test zpxa=213) 0.1 mg/dL 0.1-0.5 ALKALINE PHOSPHATASE (BEAKER) (test wokn=730) 229 U/L 40-150 AST (SGOT) (BEAKER) (test axoa=423) 35 U/L 5-34 ALT (SGPT) (BEAKER) (test uqij=223) 43 U/L 6-55 [id number] 05:51:00 Test Item Value Reference Range Comments PHOSPHORUS (BEAKER) (test zrcp=752) 4.5 mg/dL 2.3-4.7 [id number] 05:51:00 Test Item Value Reference Range Comments MAGNESIUM (BEAKER) (test dlij=789) 1.8 mg/dL 1.6-2.6 POCT-GLUCOSE [id number] 05:41:00 Test Item Value Reference Range Comments POC-GLUCOSE METER (BEAKER) 128 mg/dL 70-110 TESTED AT [address] (test pkjk=9924) [place] [id number] POCT-GLUCOSE [id number] 23:44:00 Test Item Value Reference Range Comments POC-GLUCOSE METER (BEAKER) 121 mg/dL 70-110 TESTED AT [address] (test dxqu=0376) [facility] [address] POCT-GLUCOSE [id number] 17:34:00 Test Item Value Reference Range Comments POC-GLUCOSE METER (BEAKER) 118 mg/dL 70-110 TESTED AT [address] (test rswk=4969) [facility] [address] POCT-GLUCOSE [id number] 13:06:00 Test Item Value Reference Range Comments POC-GLUCOSE METER (BEAKER) 134 mg/dL 70-110 TESTED AT [address] (test qdmb=0572) [facility] [address] POCT-GLUCOSE [id number] 05:53:00 Test Item Value Reference Range Comments POC-GLUCOSE METER (BEAKER) 134 mg/dL 70-110 TESTED AT [address] (test oatc=3861) [facility] [address] BASIC METABOLIC [id number] 05:36:00 Test Item Value Reference Range Comments SODIUM (BEAKER) (test 137 meq/L 136-145 cjee=099) POTASSIUM (BEAKER) (test 4.1 meq/L 3.5-5.1 ilpy=962) CHLORIDE (BEAKER) (test 106 meq/L 98-107 xbul=394) CO2 (BEAKER) (test 25 meq/L 22-29 nxug=589) BLOOD UREA NITROGEN 12 mg/dL 7-21 (BEAKER) (test jogq=293) CREATININE (BEAKER) (test 0.41 mg/dL 0.57-1.25 mzwm=835) GLUCOSE RANDOM (BEAKER) 119 mg/dL 70-105 (test miua=661) CALCIUM (BEAKER) (test 7.9 mg/dL 8.4-10.2 pdog=637) EGFR (BEAKER) (test 159 mL/min/1.73 sq m ESTIMATED GFR IS NOT kaif=1789) ACCURATE CREATININE CLEARANCE IN PREDICTING GLOMERULAR FILTRATION RATE. ESTIMATED GFR IS NOT APPLICABLE FOR DIALYSIS PATIENTS. [id number] 05:35:00 Test Item Value Reference Range Comments PHOSPHORUS (BEAKER) (test wnos=842) 4.2 mg/dL 2.3-4.7 [id number] 05:35:00 Test Item Value Reference Range Comments MAGNESIUM (BEAKER) (test axbt=873) 1.7 mg/dL 1.6-2.6 HEPATIC FUNCTION [id number] 05:35:00 Test Item Value Reference Range Comments TOTAL PROTEIN (BEAKER) (test qcnh=719) 4.9 gm/dL 6.0-8.3 ALBUMIN (BEAKER) (test ciev=3428) 2.0 g/dL 3.5-5.0 BILIRUBIN TOTAL (BEAKER) (test azzh=465) 0.2 mg/dL 0.2-1.2 BILIRUBIN DIRECT (BEAKER) (test gpox=085) 0.1 mg/dL 0.1-0.5 ALKALINE PHOSPHATASE (BEAKER) (test vigm=518) 228 U/L 40-150 AST (SGOT) (BEAKER) (test uwms=220) 51 U/L 5-34 ALT (SGPT) (BEAKER) (test ujzu=450) 53 U/L 6-55 POCT-GLUCOSE [id number] 23:35:00 Test Item Value Reference Range Comments POC-GLUCOSE METER (BEAKER) 136 mg/dL 70-[address] [facility] [address] [facility] (test dnyw=2529) [facility] [address] POCT-GLUCOSE [id number] 18:52:00 Test Item Value Reference Range Comments POC-GLUCOSE METER (BEAKER) 119 mg/dL 70-[address] [facility] [address] [facility] (test vwkz=6486) [facility] [address] POCT-GLUCOSE [id number] 12:12:00 Test Item Value Reference Range Comments POC-GLUCOSE METER (BEAKER) 139 mg/dL 70-[address] [facility] [address] [facility] (test kmyb=7374) [facility] [address] BASIC METABOLIC [id number] 06:50:00 Test Item Value Reference Range Comments SODIUM (BEAKER) (test 137 meq/L 136-145 onkd=111) POTASSIUM (BEAKER) (test 3.8 meq/L 3.5-5.1 wtqc=691) CHLORIDE (BEAKER) (test 106 meq/L 98-107 lrnm=315) CO2 (BEAKER) (test 25 meq/L 22-29 maky=942) BLOOD UREA NITROGEN 11 mg/dL 7-21 (BEAKER) (test jprg=553) CREATININE (BEAKER) (test 0.44 mg/dL 0.57-1.25 rhvs=297) GLUCOSE RANDOM (BEAKER) 121 mg/dL 70-105 (test kulz=254) CALCIUM (BEAKER) (test 7.8 mg/dL 8.4-10.2 rmvs=370) EGFR (BEAKER) (test 146 mL/min/1.73 sq m ESTIMATED GFR IS NOT zkhb=8825) ACCURATE CREATININE CLEARANCE IN PREDICTING GLOMERULAR FILTRATION RATE. ESTIMATED GFR IS NOT APPLICABLE FOR DIALYSIS PATIENTS. [id number] 06:38:00 Test Item Value Reference Range Comments PHOSPHORUS (BEAKER) (test kpie=289) 4.5 mg/dL 2.3-4.7 [id number] 06:38:00 Test Item Value Reference Range Comments MAGNESIUM (BEAKER) (test mwji=149) 2.0 mg/dL 1.6-2.6 HEPATIC FUNCTION [id number] 06:38:00 Test Item Value Reference Range Comments TOTAL PROTEIN (BEAKER) (test vzof=924) 4.8 gm/dL 6.0-8.3 ALBUMIN (BEAKER) (test ohrm=6611) 2.0 g/dL 3.5-5.0 BILIRUBIN TOTAL (BEAKER) (test jwey=390) 0.2 mg/dL 0.2-1.2 BILIRUBIN DIRECT (BEAKER) (test kvrp=100) 0.1 mg/dL 0.1-0.5 ALKALINE PHOSPHATASE (BEAKER) (test rojq=635) 191 U/L 40-150 AST (SGOT) (BEAKER) (test ajel=222) 39 U/L 5-34 ALT (SGPT) (BEAKER) (test masa=087) 43 U/L 6-55 CBC W/PLT COUNT & AUTO [id number] 06:24:00 Test Item Value Reference Range Comments WHITE BLOOD CELL COUNT (BEAKER) (test ufak=486) 6.4 K/ L 3.5-10.5 RED BLOOD CELL COUNT (BEAKER) (test xpob=748) 2.56 M/ L 3.93-5.22 HEMOGLOBIN (BEAKER) (test ugmq=169) 7.0 GM/DL 11.2-15.7 HEMATOCRIT (BEAKER) (test ogcf=867) 23.0 % 34.1-44.9 MEAN CORPUSCULAR VOLUME (BEAKER) (test joxv=755) 89.8 fL 79.4-94.8 MEAN CORPUSCULAR HEMOGLOBIN (BEAKER) (test 27.3 pg 25.6-32.2 kkks=671) MEAN CORPUSCULAR HEMOGLOBIN CONC (BEAKER) (test 30.4 GM/DL 32.2-35.5 smrv=483) RED CELL DISTRIBUTION WIDTH (BEAKER) (test 15.5 % 11.7-14.4 ybqj=182) PLATELET COUNT (BEAKER) (test wrhv=785) 401 K/CU MM 150-450 MEAN PLATELET VOLUME (BEAKER) (test xjlk=777) 9.1 fL 9.4-12.3 NUCLEATED RED BLOOD CELLS (BEAKER) (test 0 /100 WBC 0-0 vots=358) NEUTROPHILS RELATIVE PERCENT (BEAKER) (test 55 % ghxr=897) LYMPHOCYTES RELATIVE PERCENT (BEAKER) (test 32 % ubka=254) MONOCYTES RELATIVE PERCENT (BEAKER) (test 10 % eljv=547) EOSINOPHILS RELATIVE PERCENT (BEAKER) (test 3 % isie=458) BASOPHILS RELATIVE PERCENT (BEAKER) (test 1 % vlsv=071) NEUTROPHILS ABSOLUTE COUNT (BEAKER) (test 3.50 K/ L 1.56-6.13 wuyp=383) LYMPHOCYTES ABSOLUTE COUNT (BEAKER) (test 2.07 K/ L 1.18-3.74 igvb=187) MONOCYTES ABSOLUTE COUNT (BEAKER) (test 0.61 K/ L 0.24-0.36 tbmg=863) EOSINOPHILS ABSOLUTE COUNT (BEAKER) (test 0.16 K/ L 0.04-0.36 xglh=403) BASOPHILS ABSOLUTE COUNT (BEAKER) (test 0.03 K/ L 0.01-0.08 eoyr=635) IMMATURE GRANULOCYTES-RELATIVE PERCENT (BEAKER) 0 % 0-1 (test spap=1323) POCT-GLUCOSE [id number] 05:49:00 Test Item Value Reference Range Comments POC-GLUCOSE METER (BEAKER) 134 mg/dL 70-110 TESTED AT [address] (test hinb=7659) [place] [address] POCT-GLUCOSE [id number] 23:19:00 Test Item Value Reference Range Comments POC-GLUCOSE METER (BEAKER) 128 mg/dL 70-110 TESTED AT [address] (test etle=8085) [place] [address] POCT-GLUCOSE [id number] 18:23:00 Test Item Value Reference Range Comments POC-GLUCOSE METER (BEAKER) 123 mg/dL 70-110 TESTED AT [address] (test nwkc=1134) [place] [id number] POCT-GLUCOSE [id number] 12:16:00 Test Item Value Reference Range Comments POC-GLUCOSE METER (BEAKER) 131 mg/dL 70-110 TESTED AT [address] (test njxu=9512) [place] [id number] POCT-GLUCOSE [id number] 05:47:00 Test Item Value Reference Range Comments POC-GLUCOSE METER (BEAKER) 87 mg/dL 70-110 TESTED AT [address] (test ydzu=3594) [place] [id number] BASIC METABOLIC [id number] 04:01:00 Test Item Value Reference Range Comments SODIUM (BEAKER) (test 139 meq/L 136-145 wdum=402) POTASSIUM (BEAKER) (test 4.0 meq/L 3.5-5.1 Specimen slightly lper=453) hemolyzed CHLORIDE (BEAKER) (test 109 meq/L 98-107 uaaq=506) CO2 (BEAKER) (test 23 meq/L 22-29 pprw=692) BLOOD UREA NITROGEN 10 mg/dL 7-21 (BEAKER) (test tsxf=364) CREATININE (BEAKER) (test 0.41 mg/dL 0.57-1.25 Specimen slightly oalw=232) hemolyzed GLUCOSE RANDOM (BEAKER) 101 mg/dL 70-105 (test ywut=692) CALCIUM (BEAKER) (test 7.7 mg/dL 8.4-10.2 jcfl=317) EGFR (BEAKER) (test 159 mL/min/1.73 sq m ESTIMATED GFR IS NOT zwaz=0772) ACCURATE CREATININE CLEARANCE IN PREDICTING GLOMERULAR FILTRATION RATE. ESTIMATED GFR IS NOT APPLICABLE FOR DIALYSIS PATIENTS. [id number] 03:59:00 Test Item Value Reference Range Comments MAGNESIUM (BEAKER) (test 1.9 mg/dL 1.6-2.6 Specimen slightly hemolyzed tirx=295) [id number] 03:59:00 Test Item Value Reference Range Comments PHOSPHORUS (BEAKER) (test 3.8 mg/dL 2.3-4.7 Specimen slightly hemolyzed ucmg=951) [id number] 03:59:00 Test Item Value Reference Range Comments TRIGLYCERIDES (BEAKER) (test 144 mg/dL Specimen slightly hemolyzed mqiz=194) TRIGLYCERIDE REFERENCE RANGELow Risk <150Borderline Risk 150-199High Risk 200-499Very High Risk>=500HEPATIC FUNCTION [id number] 03:59:00 Test Item Value Reference Range Comments TOTAL PROTEIN (BEAKER) (test 4.9 gm/dL 6.0-8.3 Specimen slightly hemolyzed cgvr=494) ALBUMIN (BEAKER) (test 2.0 g/dL 3.5-5.0 Specimen slightly hemolyzed zimn=1655) BILIRUBIN TOTAL (BEAKER) (test 0.1 mg/dL 0.2-1.2 Specimen slightly hemolyzed jeyq=538) BILIRUBIN DIRECT (BEAKER) (test 0.1 mg/dL 0.1-0.5 Specimen slightly hemolyzed blzc=377) ALKALINE PHOSPHATASE (BEAKER) 203 U/L 40-150 (test jhig=658) AST (SGOT) (BEAKER) (test 78 U/L 5-34 Specimen slightly hemolyzed msxv=636) ALT (SGPT) (BEAKER) (test 54 U/L 6-55 Specimen slightly hemolyzed tabj=955) C-REACTIVE [id number] 03:59:00 Test Item Value Reference Range Comments C-REACTIVE PROTEIN (BEAKER) (test cwfk=668) 2.13 mg/dL 0.00-0.50 [id number] 03:57:00 Test Item Value Reference Range Comments PREALBUMIN (BEAKER) (test bmbx=126) 5 mg/dL 14-45 POCT-GLUCOSE [id number] 23:26:00 Test Item Value Reference Range Comments POC-GLUCOSE METER (BEAKER) 114 mg/dL 70-110 TESTED AT [address] (test ecwz=5132) [facility] [address] POCT-GLUCOSE [id number] 18:25:00 Test Item Value Reference Range Comments POC-GLUCOSE METER (BEAKER) 117 mg/dL 70-110 TESTED AT [address] (test yxaj=5439) [facility] [address] POCT-GLUCOSE [id number] 11:56:00 Test Item Value Reference Range Comments POC-GLUCOSE METER (BEAKER) 122 mg/dL 70-110 TESTED AT [address] (test hcts=5209) [facility] [address] BASIC METABOLIC [id number] 06:18:00 Test Item Value Reference Range Comments SODIUM (BEAKER) (test 135 meq/L 136-145 gbgk=216) POTASSIUM (BEAKER) (test 3.8 meq/L 3.5-5.1 gqog=660) CHLORIDE (BEAKER) (test 104 meq/L 98-107 gmus=494) CO2 (BEAKER) (test 26 meq/L 22-29 jmvf=839) BLOOD UREA NITROGEN 8 mg/dL 7-21 (BEAKER) (test aahq=904) CREATININE (BEAKER) (test 0.38 mg/dL 0.57-1.25 fquw=783) GLUCOSE RANDOM (BEAKER) 113 mg/dL 70-105 (test tmis=474) CALCIUM (BEAKER) (test 7.5 mg/dL 8.4-10.2 myaj=519) EGFR (BEAKER) (test 173 mL/min/1.73 sq m ESTIMATED GFR IS NOT rfbb=9485) ACCURATE CREATININE CLEARANCE IN PREDICTING GLOMERULAR FILTRATION RATE. ESTIMATED GFR IS NOT APPLICABLE FOR DIALYSIS PATIENTS. HEPATIC FUNCTION [id number] 06:14:00 Test Item Value Reference Range Comments TOTAL PROTEIN (BEAKER) (test vpib=964) 4.7 gm/dL 6.0-8.3 ALBUMIN (BEAKER) (test dqer=8307) 2.0 g/dL 3.5-5.0 BILIRUBIN TOTAL (BEAKER) (test hsrv=421) 0.1 mg/dL 0.2-1.2 BILIRUBIN DIRECT (BEAKER) (test xuqc=563) 0.1 mg/dL 0.1-0.5 ALKALINE PHOSPHATASE (BEAKER) (test ytne=075) 147 U/L 40-150 AST (SGOT) (BEAKER) (test qhcf=039) 60 U/L 5-34 ALT (SGPT) (BEAKER) (test dywo=710) 28 U/L 6-55 [id number] 06:14:00 Test Item Value Reference Range Comments MAGNESIUM (BEAKER) (test rvnr=039) 2.0 mg/dL 1.6-2.6 [id number] 06:14:00 Test Item Value Reference Range Comments PHOSPHORUS (BEAKER) (test kgrn=618) 2.2 mg/dL 2.3-4.7 POCT-GLUCOSE [id number] 05:51:00 Test Item Value Reference Range Comments POC-GLUCOSE METER (BEAKER) 133 mg/dL 70-110 TESTED AT [address] (test zpzt=5979) [facility] [address] POCT-GLUCOSE [id number] 00:14:00 Test Item Value Reference Range Comments POC-GLUCOSE METER (BEAKER) 128 mg/dL 70-110 TESTED AT [address] (test azjg=3547) [facility] [address] POCT-GLUCOSE [id number] 17:33:00 Test Item Value Reference Range Comments POC-GLUCOSE METER (BEAKER) 123 mg/dL 70-110 TESTED AT [address] (test mihd=1706) [facility] [address] POCT-GLUCOSE [id number] 12:00:00 Test Item Value Reference Range Comments POC-GLUCOSE METER (BEAKER) 128 mg/dL 70-[address] [facility] [address] (test ukrh=6506) [facility] [address] [id number] 07:22:00 Test Item Value Reference Range Comments PHOSPHORUS (BEAKER) (test dppk=549) 1.3 mg/dL 2.3-4.7 BASIC METABOLIC [id number] 06:39:00 Test Item Value Reference Range Comments SODIUM (BEAKER) (test 135 meq/L 136-145 voqq=169) POTASSIUM (BEAKER) (test 3.8 meq/L 3.5-5.1 xwmv=754) CHLORIDE (BEAKER) (test 104 meq/L 98-107 dsgq=466) CO2 (BEAKER) (test 26 meq/L 22-29 nzkk=444) BLOOD UREA NITROGEN 8 mg/dL 7-21 (BEAKER) (test peqm=495) CREATININE (BEAKER) (test 0.40 mg/dL 0.57-1.25 qlln=229) GLUCOSE RANDOM (BEAKER) 120 mg/dL 70-105 (test gcqk=594) CALCIUM (BEAKER) (test 7.5 mg/dL 8.4-10.2 onxc=424) EGFR (BEAKER) (test 163 mL/min/1.73 sq m ESTIMATED GFR IS NOT rmsa=2921) ACCURATE CREATININE CLEARANCE IN PREDICTING GLOMERULAR FILTRATION RATE. ESTIMATED GFR IS NOT APPLICABLE FOR DIALYSIS PATIENTS. [id number] 06:12:00 Test Item Value Reference Range Comments MAGNESIUM (BEAKER) (test lgtx=522) 1.7 mg/dL 1.6-2.6 HEPATIC FUNCTION [id number] 06:12:00 Test Item Value Reference Range Comments TOTAL PROTEIN (BEAKER) (test gywl=047) 4.9 gm/dL 6.0-8.3 ALBUMIN (BEAKER) (test zmzo=8444) 2.1 g/dL 3.5-5.0 BILIRUBIN TOTAL (BEAKER) (test dtqo=697) 0.2 mg/dL 0.2-1.2 BILIRUBIN DIRECT (BEAKER) (test rsxh=475) 0.1 mg/dL 0.1-0.5 ALKALINE PHOSPHATASE (BEAKER) (test wxmz=503) 119 U/L 40-150 AST (SGOT) (BEAKER) (test hjij=753) 29 U/L 5-34 ALT (SGPT) (BEAKER) (test makb=885) 13 U/L 6-55 POCT-GLUCOSE [id number] 05:40:00 Test Item Value Reference Range Comments POC-GLUCOSE METER (BEAKER) 141 mg/dL 70-110 TESTED AT [address] (test eiiq=7438) [facility] [address] POCT-GLUCOSE [id number] 23:19:00 Test Item Value Reference Range Comments POC-GLUCOSE METER (BEAKER) 163 mg/dL 70-110 TESTED AT [address] (test ysnn=5358) [facility] [address] POCT-GLUCOSE [id number] 18:23:00 Test Item Value Reference Range Comments POC-GLUCOSE METER (BEAKER) 135 mg/dL 70-110 TESTED AT [address] (test ptnh=3700) [facility] [address] POCT-GLUCOSE [id number] 12:09:00 Test Item Value Reference Range Comments POC-GLUCOSE METER (BEAKER) 164 mg/dL 70-110 TESTED AT [address] (test taab=2427) [facility] [address] [id number] 06:56:00 Test Item Value Reference Range Comments PHOSPHORUS (BEAKER) (test sfmt=655) 1.2 mg/dL 2.3-4.7 BASIC METABOLIC [id number] 06:07:00 Test Item Value Reference Range Comments SODIUM (BEAKER) (test 136 meq/L 136-145 fvys=410) POTASSIUM (BEAKER) (test 3.9 meq/L 3.5-5.1 bvzo=650) CHLORIDE (BEAKER) (test 106 meq/L 98-107 wnxb=488) CO2 (BEAKER) (test 25 meq/L 22-29 alzq=994) BLOOD UREA NITROGEN 6 mg/dL 7-21 (BEAKER) (test gvwl=128) CREATININE (BEAKER) (test 0.44 mg/dL 0.57-1.25 dfoc=946) GLUCOSE RANDOM (BEAKER) 118 mg/dL 70-105 (test uayy=922) CALCIUM (BEAKER) (test 7.6 mg/dL 8.4-10.2 oczf=979) EGFR (BEAKER) (test 146 mL/min/1.73 sq m ESTIMATED GFR IS NOT nwsc=7837) ACCURATE CREATININE CLEARANCE IN PREDICTING GLOMERULAR FILTRATION RATE. ESTIMATED GFR IS NOT APPLICABLE FOR DIALYSIS PATIENTS. [id number] 06:06:00 Test Item Value Reference Range Comments MAGNESIUM (BEAKER) (test pltz=420) 1.5 mg/dL 1.6-2.6 HEPATIC FUNCTION [id number] 06:06:00 Test Item Value Reference Range Comments TOTAL PROTEIN (BEAKER) (test ulre=450) 4.6 gm/dL 6.0-8.3 ALBUMIN (BEAKER) (test jlet=8779) 2.0 g/dL 3.5-5.0 BILIRUBIN TOTAL (BEAKER) (test torp=736) 0.2 mg/dL 0.2-1.2 BILIRUBIN DIRECT (BEAKER) (test pcdh=110) 0.1 mg/dL 0.1-0.5 ALKALINE PHOSPHATASE (BEAKER) (test mazr=762) 99 U/L 40-150 AST (SGOT) (BEAKER) (test kbmj=828) 14 U/L 5-34 ALT (SGPT) (BEAKER) (test qmok=049) 7 U/L 6-55 POCT-GLUCOSE [id number] 06:03:00 Test Item Value Reference Range Comments POC-GLUCOSE METER (BEAKER) 141 mg/dL 70-110 TESTED AT [address] (test mlwc=8574) [place] [id number] POCT-GLUCOSE [id number] 23:19:00 Test Item Value Reference Range Comments POC-GLUCOSE METER (BEAKER) 148 mg/dL 70-110 TESTED AT [address] (test vgbi=3896) [facility] [address] POCT-GLUCOSE [id number] 17:44:00 Test Item Value Reference Range Comments POC-GLUCOSE METER (BEAKER) 137 mg/dL 70-110 TESTED AT [address] (test lpcf=2669) [place] [id number] POCT-GLUCOSE [id number] 12:17:00 Test Item Value Reference Range Comments POC-GLUCOSE METER (BEAKER) 124 mg/dL 70-110 TESTED AT [address] (test sdqw=5362) [place] [address] [id number] 08:49:00 Test Item Value Reference Range Comments PREALBUMIN (BEAKER) (test 4 mg/dL 14-45 Specimen slightly hemolyzed aruf=938) BASIC METABOLIC [id number] 06:53:00 Test Item Value Reference Range Comments SODIUM (BEAKER) (test 138 meq/L 136-145 ryup=184) POTASSIUM (BEAKER) (test 3.3 meq/L 3.5-5.1 girw=890) CHLORIDE (BEAKER) (test 106 meq/L 98-107 ggtx=894) CO2 (BEAKER) (test 27 meq/L 22-29 xots=448) BLOOD UREA NITROGEN 4 mg/dL 7-21 (BEAKER) (test fsys=068) CREATININE (BEAKER) (test 0.44 mg/dL 0.57-1.25 jclu=325) GLUCOSE RANDOM (BEAKER) 126 mg/dL 70-105 (test noul=717) CALCIUM (BEAKER) (test 7.4 mg/dL 8.4-10.2 mrvv=124) EGFR (BEAKER) (test 146 mL/min/1.73 sq m ESTIMATED GFR IS NOT jopu=8260) ACCURATE CREATININE CLEARANCE IN PREDICTING GLOMERULAR FILTRATION RATE. ESTIMATED GFR IS NOT APPLICABLE FOR DIALYSIS PATIENTS. HEPATIC FUNCTION [id number] 06:53:00 Test Item Value Reference Range Comments TOTAL PROTEIN (BEAKER) (test myjn=951) 4.2 gm/dL 6.0-8.3 ALBUMIN (BEAKER) (test nnzl=0518) 1.8 g/dL 3.5-5.0 BILIRUBIN TOTAL (BEAKER) (test vkcr=116) 0.2 mg/dL 0.2-1.2 BILIRUBIN DIRECT (BEAKER) (test rbal=236) 0.1 mg/dL 0.1-0.5 ALKALINE PHOSPHATASE (BEAKER) (test wxpv=770) 92 U/L 40-150 AST (SGOT) (BEAKER) (test xabz=995) 12 U/L 5-34 ALT (SGPT) (BEAKER) (test vbdl=494) < U/L 6-55 [id number] 06:52:00 Test Item Value Reference Range Comments PHOSPHORUS (BEAKER) (test bvpg=742) 2.0 mg/dL 2.3-4.7 [id number] 06:52:00 Test Item Value Reference Range Comments MAGNESIUM (BEAKER) (test vfzl=064) 1.4 mg/dL 1.6-2.6 POCT-GLUCOSE [id number] 05:41:00 Test Item Value Reference Range Comments POC-GLUCOSE METER (BEAKER) 157 mg/dL 70-110 TESTED AT [address] (test ksly=9674) [facility] [address] POCT-GLUCOSE [id number] 23:14:00 Test Item Value Reference Range Comments POC-GLUCOSE METER (BEAKER) 158 mg/dL 70-110 TESTED AT [address] (test dssa=9161) [facility] [address] POCT-GLUCOSE [id number] 18:06:00 Test Item Value Reference Range Comments POC-GLUCOSE METER (BEAKER) 155 mg/dL 70-110 TESTED AT [address] (test zekm=0658) [facility] [address] POCT-GLUCOSE [id number] 11:59:00 Test Item Value Reference Range Comments POC-GLUCOSE METER (BEAKER) 140 mg/dL 70-110 TESTED AT [address] (test lozc=8685) [facility] [address] POCT-GLUCOSE [id number] 05:11:00 Test Item Value Reference Range Comments POC-GLUCOSE METER (BEAKER) 152 mg/dL 70-110 TESTED AT [address] (test todp=7892) [facility] [address] BASIC METABOLIC [id number] 04:10:00 Test Item Value Reference Range Comments SODIUM (BEAKER) (test 138 meq/L 136-145 ktzr=657) POTASSIUM (BEAKER) (test 3.3 meq/L 3.5-5.1 tzvv=148) CHLORIDE (BEAKER) (test 110 meq/L 98-107 qcxe=325) CO2 (BEAKER) (test 22 meq/L 22-29 nwkh=231) BLOOD UREA NITROGEN 3 mg/dL 7-21 (BEAKER) (test zwsg=512) CREATININE (BEAKER) (test 0.45 mg/dL 0.57-1.25 rjfd=085) GLUCOSE RANDOM (BEAKER) 120 mg/dL 70-105 (test hfqf=108) CALCIUM (BEAKER) (test 7.2 mg/dL 8.4-10.2 alfg=663) EGFR (BEAKER) (test 143 mL/min/1.73 sq m ESTIMATED GFR IS NOT zwfc=0388) ACCURATE CREATININE CLEARANCE IN PREDICTING GLOMERULAR FILTRATION RATE. ESTIMATED GFR IS NOT APPLICABLE FOR DIALYSIS PATIENTS. HEPATIC FUNCTION [id number] 04:10:00 Test Item Value Reference Range Comments TOTAL PROTEIN (BEAKER) (test emon=196) 4.1 gm/dL 6.0-8.3 ALBUMIN (BEAKER) (test rxjw=7672) 1.8 g/dL 3.5-5.0 BILIRUBIN TOTAL (BEAKER) (test ahat=164) 0.2 mg/dL 0.2-1.2 BILIRUBIN DIRECT (BEAKER) (test bnev=066) 0.1 mg/dL 0.1-0.5 ALKALINE PHOSPHATASE (BEAKER) (test gfoh=548) 100 U/L 40-150 AST (SGOT) (BEAKER) (test gfpc=855) 9 U/L 5-34 ALT (SGPT) (BEAKER) (test djeh=855) < U/L 6-55 [id number] 04:07:00 Test Item Value Reference Range Comments PHOSPHORUS (BEAKER) (test tnzp=226) 3.0 mg/dL 2.3-4.7 [id number] 04:07:00 Test Item Value Reference Range Comments MAGNESIUM (BEAKER) (test yjjk=779) 1.6 mg/dL 1.6-2.6 POCT-GLUCOSE [id number] 00:23:00 Test Item Value Reference Range Comments POC-GLUCOSE METER (BEAKER) 158 mg/dL 70-[address] [facility] [address] [facility] (test hbpx=0331) [facility] [address] BASIC METABOLIC [id number] 05:14:00 Test Item Value Reference Range Comments SODIUM (BEAKER) (test 137 meq/L 136-145 hqzf=212) POTASSIUM (BEAKER) (test 3.6 meq/L 3.5-5.1 gmvi=197) CHLORIDE (BEAKER) (test 109 meq/L 98-107 hzii=482) CO2 (BEAKER) (test 22 meq/L 22-29 zhpn=276) BLOOD UREA NITROGEN 3 mg/dL 7-21 (BEAKER) (test vdif=899) CREATININE (BEAKER) (test 0.48 mg/dL 0.57-1.25 svpz=998) GLUCOSE RANDOM (BEAKER) 93 mg/dL 70-105 (test ltgy=596) CALCIUM (BEAKER) (test 7.1 mg/dL 8.4-10.2 ekxe=806) EGFR (BEAKER) (test 132 mL/min/1.73 sq m ESTIMATED GFR IS NOT wrmj=3129) ACCURATE CREATININE CLEARANCE IN PREDICTING GLOMERULAR FILTRATION RATE. ESTIMATED GFR IS NOT APPLICABLE FOR DIALYSIS PATIENTS. HEPATIC FUNCTION [id number] 05:14:00 Test Item Value Reference Range Comments TOTAL PROTEIN (BEAKER) (test jvus=963) 4.1 gm/dL 6.0-8.3 ALBUMIN (BEAKER) (test kfyk=7998) 1.8 g/dL 3.5-5.0 BILIRUBIN TOTAL (BEAKER) (test plog=902) 0.2 mg/dL 0.2-1.2 BILIRUBIN DIRECT (BEAKER) (test qcpu=703) 0.1 mg/dL 0.1-0.5 ALKALINE PHOSPHATASE (BEAKER) (test gfvg=866) 103 U/L 40-150 AST (SGOT) (BEAKER) (test jibf=388) 8 U/L 5-34 ALT (SGPT) (BEAKER) (test lwjg=680) < U/L 6-55 [id number] 05:13:00 Test Item Value Reference Range Comments TRIGLYCERIDES (BEAKER) (test ecmq=771) 90 mg/dL TRIGLYCERIDE REFERENCE RANGELow Risk <150Borderline Risk 150-199High Risk 200-499Very High Risk>=[id number] 05:13:00 Test Item Value Reference Range Comments MAGNESIUM (BEAKER) (test rvzj=895) 1.6 mg/dL 1.6-2.6 [id number] 05:13:00 Test Item Value Reference Range Comments PHOSPHORUS (BEAKER) (test gaqk=830) 3.0 mg/dL 2.3-4.7 [id number] 04:55:00 Test Item Value Reference Range Comments PROTIME (BEAKER) (test rdrg=720) 16.1 seconds 11.7-14.7 INR (BEAKER) (test hlgh=235) 1.3 <=5.9 PARTIAL THROMBOPLASTIN TIME (BEAKER) (test 38.8 seconds 22.5-36.0 aoca=182) RECOMMENDED COUMADIN/WARFARIN INR THERAPY RANGESSTANDARD DOSE: 2.0 - 3.0 Includes: PROPHYLAXIS forvenous thrombosis, systemic embolization; TREATMENT for venous thrombosis and/or pulmonary embolus.HIGH RISK: Target INR is 2.5-3.5 for patients with mechanical heart valves.PROTHROMBIN [id number] 04:54: 00 Test Item Value Reference Range Comments PROTIME (BEAKER) (test dgpl=946) 16.1 seconds 11.7-14.7 INR (BEAKER) (test mfew=380) 1.3 <=5.9 RECOMMENDED COUMADIN/WARFARIN INR THERAPY RANGESSTANDARD DOSE: 2.0 - 3.0 Includes: PROPHYLAXIS forvenous thrombosis, systemic embolization; TREATMENT for venous thrombosis and/or pulmonary embolus.HIGH RISK: Target INR is 2.5-3.5 for patients with mechanical heart valves.RAD, CHEST, 1 VIEW, NON [id number] 10:10:00Reason for exam:->post Power PICC line insertion for tip verificationFINAL REPORT Chest one view INDICATION: PICC line [...] The bones appear unchanged. Signed: Jabari Grace MDRepkevin Verified Date/Time : 12/26/2017 10:10:41 Reading Location: [facility] Radiology Reading Room CBC W/ PLT COUNT & AUTO [id number] 09:35:00 Test Item Value Reference Range Comments WHITE BLOOD CELL COUNT (BEAKER) (test knhg=640) 3.9 K/ L 3.5-10.5 RED BLOOD CELL COUNT (BEAKER) (test ngjw=035) 2.63 M/ L 3.93-5.22 HEMOGLOBIN (BEAKER) (test nbsz=980) 7.5 GM/DL 11.2-15.7 HEMATOCRIT (BEAKER) (test qsuh=525) 24.1 % 34.1-44.9 MEAN CORPUSCULAR VOLUME (BEAKER) (test fbzm=947) 91.6 fL 79.4-94.8 MEAN CORPUSCULAR HEMOGLOBIN (BEAKER) (test 28.5 pg 25.6-32.2 xxwo=950) MEAN CORPUSCULAR HEMOGLOBIN CONC (BEAKER) (test 31.1 GM/DL 32.2-35.5 oqdv=896) RED CELL DISTRIBUTION WIDTH (BEAKER) (test 14.2 % 11.7-14.4 jegw=988) PLATELET COUNT (BEAKER) (test luxu=397) 401 K/CU MM 150-450 MEAN PLATELET VOLUME (BEAKER) (test htez=369) 8.7 fL 9.4-12.3 NUCLEATED RED BLOOD CELLS (BEAKER) (test 0 /100 WBC 0-0 uiyx=429) NEUTROPHILS RELATIVE PERCENT (BEAKER) (test 28 % pauw=700) LYMPHOCYTES RELATIVE PERCENT (BEAKER) (test 57 % pkvk=019) MONOCYTES RELATIVE PERCENT (BEAKER) (test 11 % aymw=264) EOSINOPHILS RELATIVE PERCENT (BEAKER) (test 3 % cvps=608) BASOPHILS RELATIVE PERCENT (BEAKER) (test 1 % omct=522) NEUTROPHILS ABSOLUTE COUNT (BEAKER) (test 1.09 K/ L 1.56-6.13 wnff=299) LYMPHOCYTES ABSOLUTE COUNT (BEAKER) (test 2.19 K/ L 1.18-3.74 jryk=460) MONOCYTES ABSOLUTE COUNT (BEAKER) (test 0.41 K/ L 0.24-0.36 dxvd=713) EOSINOPHILS ABSOLUTE COUNT (BEAKER) (test 0.13 K/ L 0.04-0.36 zeot=684) BASOPHILS ABSOLUTE COUNT (BEAKER) (test 0.02 K/ L 0.01-0.08 uxcl=397) IMMATURE GRANULOCYTES-RELATIVE PERCENT (BEAKER) 1 % 0-1 (test ldtx=3796) (MANUAL DIFFERENTIAL)2017-12-26 09:35:00 Test Item Value Reference Range Comments TOTAL COUNTED (BEAKER) (test gini=6536) PLT MORPHOLOGY (BEAKER) (test himv=895) Normal ATYPICAL LYMPHS(BEAKER) (test xxli=2994) Present POLYCHROMATOPHILLIC RBCS(BEAKER) (test ipev=520) 1+ few BASIC METABOLIC [id number] 07:06:00 Test Item Value Reference Range Comments SODIUM (BEAKER) (test 140 meq/L 136-145 bxzx=689) POTASSIUM (BEAKER) (test 3.1 meq/L 3.5-5.1 kwdo=700) CHLORIDE (BEAKER) (test 110 meq/L 98-107 dgdx=709) CO2 (BEAKER) (test 24 meq/L 22-29 xpxo=842) BLOOD UREA NITROGEN 3 mg/dL 7-21 (BEAKER) (test kaxk=401) CREATININE (BEAKER) (test 0.51 mg/dL 0.57-1.25 fgaw=855) GLUCOSE RANDOM (BEAKER) 94 mg/dL 70-105 (test gtmp=682) CALCIUM (BEAKER) (test 7.5 mg/dL 8.4-10.2 glio=209) EGFR (BEAKER) (test 123 mL/min/1.73 sq m ESTIMATED GFR IS NOT gjle=1944) ACCURATE CREATININE CLEARANCE IN PREDICTING GLOMERULAR FILTRATION RATE. ESTIMATED GFR IS NOT APPLICABLE FOR DIALYSIS PATIENTS. [id number] 06:21:00 Test Item Value Reference Range Comments PHOSPHORUS (BEAKER) (test qbod=181) 3.3 mg/dL 2.3-4.7 [id number] 06:21:00 Test Item Value Reference Range Comments MAGNESIUM (BEAKER) (test poys=189) 1.4 mg/dL 1.6-2.6 [id number] 05:56:00 Test Item Value Reference Range Comments PROTIME (BEAKER) (test mjcz=873) 16.8 seconds 11.7-14.7 INR (BEAKER) (test jzux=197) 1.4 <=5.9 PARTIAL THROMBOPLASTIN TIME (BEAKER) (test 39.6 seconds 22.5-36.0 jkpx=702) RECOMMENDED COUMADIN/WARFARIN INR THERAPY RANGESSTANDARD DOSE: 2.0 - 3.0 Includes: PROPHYLAXIS forvenous thrombosis, systemic embolization; TREATMENT for venous thrombosis and/or pulmonary embolus.HIGH RISK: Target INR is 2.5-3.5 for patients with mechanical heart valves.[id number] 05:56:00 Test Item Value Reference Range Comments PARTIAL THROMBOPLASTIN TIME (BEAKER) (test 39.6 seconds 22.5-36.0 tbuk=859) PROTHROMBIN [id number] 05:55:00 Test Item Value Reference Range Comments PROTIME (BEAKER) (test kpzh=603) 16.8 seconds 11.7-14.7 INR (BEAKER) (test klbe=058) 1.4 <=5.9 RECOMMENDED COUMADIN/WARFARIN INR THERAPY RANGESSTANDARD DOSE: 2.0 - 3.0 Includes: PROPHYLAXIS forvenous thrombosis, systemic embolization; TREATMENT for venous thrombosis and/or pulmonary embolus.HIGH RISK: Target INR is 2.5-3.5 for patients with mechanical heart valves.HEPATIC FUNCTION [id number] 04:26 :00 Test Item Value Reference Range Comments TOTAL PROTEIN (BEAKER) (test cycx=459) 4.8 gm/dL 6.0-8.3 ALBUMIN (BEAKER) (test nysr=2822) 2.1 g/dL 3.5-5.0 BILIRUBIN TOTAL (BEAKER) (test ztqy=941) 0.3 mg/dL 0.2-1.2 BILIRUBIN DIRECT (BEAKER) (test ordk=003) 0.2 mg/dL 0.1-0.5 ALKALINE PHOSPHATASE (BEAKER) (test nuvd=305) 116 U/L 40-150 AST (SGOT) (BEAKER) (test vpuy=877) 9 U/L 5-34 ALT (SGPT) (BEAKER) (test vvqs=691) < U/L 6-55 BASIC METABOLIC [id number] 04:21:00 Test Item Value Reference Range Comments SODIUM (BEAKER) (test 135 meq/L 136-145 vlxm=545) POTASSIUM (BEAKER) (test 3.2 meq/L 3.5-5.1 uanp=830) CHLORIDE (BEAKER) (test 98 meq/L 98-107 mqjc=339) CO2 (BEAKER) (test 29 meq/L 22-29 ogxt=687) BLOOD UREA NITROGEN 8 mg/dL 7-21 (BEAKER) (test djtv=061) CREATININE (BEAKER) (test 0.52 mg/dL 0.57-1.25 lqys=086) GLUCOSE RANDOM (BEAKER) 101 mg/dL 70-105 (test necw=927) CALCIUM (BEAKER) (test 7.5 mg/dL 8.4-10.2 cjgn=001) EGFR (BEAKER) (test 121 mL/min/1.73 sq m ESTIMATED GFR IS NOT fmku=2192) ACCURATE CREATININE CLEARANCE IN PREDICTING GLOMERULAR FILTRATION RATE. ESTIMATED GFR IS NOT APPLICABLE FOR DIALYSIS PATIENTS. [id number] 04:14:00 Test Item Value Reference Range Comments PREALBUMIN (BEAKER) (test mruh=470) 4 mg/dL 14-45 [id number] 04:13:00 Test Item Value Reference Range Comments PHOSPHORUS (BEAKER) (test ifws=470) 3.9 mg/dL 2.3-4.7 [id number] 04:13:00 Test Item Value Reference Range Comments MAGNESIUM (BEAKER) (test yaai=540) 1.7 mg/dL 1.6-2.6 [id number] 04:07:00 Test Item Value Reference Range Comments PROTIME (BEAKER) (test hmcb=071) 15.9 seconds 11.7-14.7 INR (BEAKER) (test fcne=089) 1.3 <=5.9 PARTIAL THROMBOPLASTIN TIME (BEAKER) (test 39.9 seconds 22.5-36.0 jnba=038) RECOMMENDED COUMADIN/WARFARIN INR THERAPY RANGESSTANDARD DOSE: 2.0 - 3.0 Includes: PROPHYLAXIS forvenous thrombosis, systemic embolization; TREATMENT for venous thrombosis and/or pulmonary embolus.HIGH RISK: Target INR is 2.5-3.5 for patients with mechanical heart valves.PROTHROMBIN [id number] 04:06: 00 Test Item Value Reference Range Comments PROTIME (BEAKER) (test yevm=486) 15.9 seconds 11.7-14.7 INR (BEAKER) (test ykfb=833) 1.3 <=5.9 RECOMMENDED COUMADIN/WARFARIN INR THERAPY RANGESSTANDARD DOSE: 2.0 - 3.0 Includes: PROPHYLAXIS forvenous thrombosis, systemic embolization; TREATMENT for venous thrombosis and/or pulmonary embolus.HIGH RISK: Target INR is 2.5-3.5 for patients with mechanical heart valves.CBC (HEMOGRAM ONLY)2017-12-25 03:44:00 Test Item Value Reference Range Comments WHITE BLOOD CELL COUNT (BEAKER) (test yexu=896) 4.7 K/ L 3.5-10.5 RED BLOOD CELL COUNT (BEAKER) (test ulyq=775) 2.91 M/ L 3.93-5.22 HEMOGLOBIN (BEAKER) (test oacs=385) 8.2 GM/DL 11.2-15.7 HEMATOCRIT (BEAKER) (test fqnj=872) 25.9 % 34.1-44.9 MEAN CORPUSCULAR VOLUME (BEAKER) (test gpmw=272) 89.0 fL 79.4-94.8 MEAN CORPUSCULAR HEMOGLOBIN (BEAKER) (test 28.2 pg 25.6-32.2 sgcv=102) MEAN CORPUSCULAR HEMOGLOBIN CONC (BEAKER) (test 31.7 GM/DL 32.2-35.5 mqtw=683) RED CELL DISTRIBUTION WIDTH (BEAKER) (test 14.0 % 11.7-14.4 ysov=710) PLATELET COUNT (BEAKER) (test rpio=712) 397 K/CU MM 150-450 MEAN PLATELET VOLUME (BEAKER) (test pcjm=344) 8.8 fL 9.4-12.3 NUCLEATED RED BLOOD CELLS (BEAKER) (test 0 /100 WBC 0-0 wxjm=517) AFB CULTURE + [id number] 14:43:00 Test Item Value Reference Range Comments CULTURE (BEAKER) (test No acid-fast bacilli isolated exba=7295) in 42 days AFB SMEAR (BEAKER) (test No acid fast bacilli seen kkgh=127) AFB CULTURE + [id number] 14:43:00 Test Item Value Reference Range Comments CULTURE (BEAKER) (test No acid-fast bacilli isolated fgus=9661) in 42 days AFB SMEAR (BEAKER) (test No acid fast bacilli seen icnl=256) FUNGUS CULTURE + [id number] 11:33:00 Test Item Value Reference Range Comments CULTURE (BEAKER) (test 2+ Maryanne parapsilosis duxd=7487) FUNGUS SMEAR (BEAKER) (test No fungi seen dgmp=9157) [id number] 07:23:00 Test Item Value Reference Range Comments TRIGLYCERIDES (BEAKER) (test jfmz=471) 193 mg/dL TRIGLYCERIDE REFERENCE RANGELow Risk <150Borderline Risk 150-199High Risk 200-499Very High Risk>=[id number] 07:23:00 Test Item Value Reference Range Comments MAGNESIUM (BEAKER) (test mncd=190) 1.2 mg/dL 1.6-2.6 [id number] 07:23:00 Test Item Value Reference Range Comments PHOSPHORUS (BEAKER) (test ggsr=780) 3.3 mg/dL 2.3-4.7 BASIC METABOLIC [id number] 07:23:00 Test Item Value Reference Range Comments SODIUM (BEAKER) (test 136 meq/L 136-145 mugi=759) POTASSIUM (BEAKER) (test 3.4 meq/L 3.5-5.1 wzdt=112) CHLORIDE (BEAKER) (test 102 meq/L 98-107 zney=308) CO2 (BEAKER) (test 23 meq/L 22-29 sjsv=821) BLOOD UREA NITROGEN 3 mg/dL 7-21 (BEAKER) (test jhgd=484) CREATININE (BEAKER) (test 0.49 mg/dL 0.57-1.25 zpry=874) GLUCOSE RANDOM (BEAKER) 102 mg/dL 70-105 (test juns=781) CALCIUM (BEAKER) (test 8.1 mg/dL 8.4-10.2 diza=766) EGFR (BEAKER) (test 129 mL/min/1.73 sq m ESTIMATED GFR IS NOT hrvu=5966) ACCURATE CREATININE CLEARANCE IN PREDICTING GLOMERULAR FILTRATION RATE. ESTIMATED GFR IS NOT APPLICABLE FOR DIALYSIS PATIENTS. CALCIUM, [id number] 07:08:00 Test Item Value Reference Range Comments CALCIUM IONIZED (BEAKER) (test ouxx=072) 0.98 mmol/L 1.12-1.27 PH, BLOOD (BEAKER) (test wcon=8274) 7.46 CBC W/PLT COUNT & AUTO [id number] 06:38:00 Test Item Value Reference Range Comments WHITE BLOOD CELL COUNT (BEAKER) (test dayz=772) 10.5 K/ L 3.5-10.5 RED BLOOD CELL COUNT (BEAKER) (test zsjq=535) 2.92 M/ L 3.93-5.22 HEMOGLOBIN (BEAKER) (test vvso=181) 8.5 GM/DL 11.2-15.7 HEMATOCRIT (BEAKER) (test ahvs=753) 27.5 % 34.1-44.9 MEAN CORPUSCULAR VOLUME (BEAKER) (test glir=715) 94.2 fL 79.4-94.8 MEAN CORPUSCULAR HEMOGLOBIN (BEAKER) (test 29.1 pg 25.6-32.2 sbai=371) MEAN CORPUSCULAR HEMOGLOBIN CONC (BEAKER) (test 30.9 GM/DL 32.2-35.5 emiv=396) RED CELL DISTRIBUTION WIDTH (BEAKER) (test 14.1 % 11.7-14.4 befc=224) PLATELET COUNT (BEAKER) (test yefe=038) 330 K/CU MM 150-450 MEAN PLATELET VOLUME (BEAKER) (test dxom=482) 9.3 fL 9.4-12.3 NUCLEATED RED BLOOD CELLS (BEAKER) (test 0 /100 WBC 0-0 hnin=067) NEUTROPHILS RELATIVE PERCENT (BEAKER) (test 66 % whqz=165) LYMPHOCYTES RELATIVE PERCENT (BEAKER) (test 27 % odkc=282) MONOCYTES RELATIVE PERCENT (BEAKER) (test 5 % yydt=195) EOSINOPHILS RELATIVE PERCENT (BEAKER) (test 0 % aibd=940) BASOPHILS RELATIVE PERCENT (BEAKER) (test 0 % ulqg=429) NEUTROPHILS ABSOLUTE COUNT (BEAKER) (test 6.91 K/ L 1.56-6.13 gqmm=616) LYMPHOCYTES ABSOLUTE COUNT (BEAKER) (test 2.86 K/ L 1.18-3.74 qrvl=883) MONOCYTES ABSOLUTE COUNT (BEAKER) (test 0.54 K/ L 0.24-0.36 ybqh=687) EOSINOPHILS ABSOLUTE COUNT (BEAKER) (test 0.04 K/ L 0.04-0.36 dotd=102) BASOPHILS ABSOLUTE COUNT (BEAKER) (test 0.02 K/ L 0.01-0.08 ltwa=891) IMMATURE GRANULOCYTES-RELATIVE PERCENT (BEAKER) 1 % 0-1 (test khdk=2005) CALCIUM, [id number] 06:41:00 Test Item Value Reference Range Comments CALCIUM IONIZED (BEAKER) (test lvfa=620) 1.02 mmol/L 1.12-1.27 PH, BLOOD (BEAKER) (test abgn=9213) 7.43 BASIC METABOLIC [id number] 06:20:00 Test Item Value Reference Range Comments SODIUM (BEAKER) (test 137 meq/L 136-145 itfk=576) POTASSIUM (BEAKER) (test 3.5 meq/L 3.5-5.1 jshi=977) CHLORIDE (BEAKER) (test 109 meq/L 98-107 uyrn=464) CO2 (BEAKER) (test 21 meq/L 22-29 lhjf=225) BLOOD UREA NITROGEN 4 mg/dL 7-21 (BEAKER) (test aumr=200) CREATININE (BEAKER) (test 0.50 mg/dL 0.57-1.25 sgfp=497) GLUCOSE RANDOM (BEAKER) 88 mg/dL 70-105 (test txbx=360) CALCIUM (BEAKER) (test 7.7 mg/dL 8.4-10.2 rxol=829) EGFR (BEAKER) (test 126 mL/min/1.73 sq m ESTIMATED GFR IS NOT rzmj=3375) ACCURATE CREATININE CLEARANCE IN PREDICTING GLOMERULAR FILTRATION RATE. ESTIMATED GFR IS NOT APPLICABLE FOR DIALYSIS PATIENTS. [id number] 06:14:00 Test Item Value Reference Range Comments PHOSPHORUS (BEAKER) (test gbdd=933) 3.1 mg/dL 2.3-4.7 [id number] 06:14:00 Test Item Value Reference Range Comments MAGNESIUM (BEAKER) (test cwlw=994) 2.0 mg/dL 1.6-2.6 CBC W/PLT COUNT & AUTO [id number] 05:15:00 Test Item Value Reference Range Comments WHITE BLOOD CELL COUNT (BEAKER) (test ygqv=653) 7.6 K/ L 3.5-10.5 RED BLOOD CELL COUNT (BEAKER) (test aisc=459) 2.42 M/ L 3.93-5.22 HEMOGLOBIN (BEAKER) (test suaj=703) 7.2 GM/DL 11.2-15.7 HEMATOCRIT (BEAKER) (test kllm=524) 23.0 % 34.1-44.9 MEAN CORPUSCULAR VOLUME (BEAKER) (test yunq=693) 95.0 fL 79.4-94.8 MEAN CORPUSCULAR HEMOGLOBIN (BEAKER) (test 29.8 pg 25.6-32.2 xqae=149) MEAN CORPUSCULAR HEMOGLOBIN CONC (BEAKER) (test 31.3 GM/DL 32.2-35.5 ksxd=961) RED CELL DISTRIBUTION WIDTH (BEAKER) (test 14.3 % 11.7-14.4 tkyv=079) PLATELET COUNT (BEAKER) (test wshq=317) 272 K/CU MM 150-450 MEAN PLATELET VOLUME (BEAKER) (test eynp=275) 9.2 fL 9.4-12.3 NUCLEATED RED BLOOD CELLS (BEAKER) (test 0 /100 WBC 0-0 knws=488) NEUTROPHILS RELATIVE PERCENT (BEAKER) (test 54 % vsue=875) LYMPHOCYTES RELATIVE PERCENT (BEAKER) (test 34 % lvyb=887) MONOCYTES RELATIVE PERCENT (BEAKER) (test 9 % elkd=102) EOSINOPHILS RELATIVE PERCENT (BEAKER) (test 3 % eoaz=298) BASOPHILS RELATIVE PERCENT (BEAKER) (test 0 % rekl=425) NEUTROPHILS ABSOLUTE COUNT (BEAKER) (test 4.07 K/ L 1.56-6.13 syna=393) LYMPHOCYTES ABSOLUTE COUNT (BEAKER) (test 2.57 K/ L 1.18-3.74 wrdm=102) MONOCYTES ABSOLUTE COUNT (BEAKER) (test 0.70 K/ L 0.24-0.36 eczi=999) EOSINOPHILS ABSOLUTE COUNT (BEAKER) (test 0.19 K/ L 0.04-0.36 lfog=613) BASOPHILS ABSOLUTE COUNT (BEAKER) (test 0.02 K/ L 0.01-0.08 haqy=956) IMMATURE GRANULOCYTES-RELATIVE PERCENT (BEAKER) 1 % 0-1 (test ureo=7048) CT, [id number] 20:56:00FINAL REPORT CT scan of the abdomen [...] MDReport Verified Date/Time: 12/12/2017 20:56:49 Reading Location: [facility] [id number] Consult Reading Room Electronicallysigned by : MAGDI ROLON M.D. on 12/12/2017 08:56 PMCBC W/PLT COUNT & AUTO [id number] 13:44:00 Test Item Value Reference Range Comments WHITE BLOOD CELL COUNT (BEAKER) (test qqjy=926) 9.3 K/ L 3.5-10.5 RED BLOOD CELL COUNT (BEAKER) (test fhnu=655) 2.56 M/ L 3.93-5.22 HEMOGLOBIN (BEAKER) (test qhzt=842) 7.5 GM/DL 11.2-15.7 HEMATOCRIT (BEAKER) (test rqbq=620) 24.2 % 34.1-44.9 MEAN CORPUSCULAR VOLUME (BEAKER) (test qwzl=279) 94.5 fL 79.4-94.8 MEAN CORPUSCULAR HEMOGLOBIN (BEAKER) (test 29.3 pg 25.6-32.2 kdtf=440) MEAN CORPUSCULAR HEMOGLOBIN CONC (BEAKER) (test 31.0 GM/DL 32.2-35.5 ewfd=091) RED CELL DISTRIBUTION WIDTH (BEAKER) (test 14.4 % 11.7-14.4 qcsu=319) PLATELET COUNT (BEAKER) (test pjlc=232) 269 K/CU MM 150-450 MEAN PLATELET VOLUME (BEAKER) (test nbph=117) 9.2 fL 9.4-12.3 NUCLEATED RED BLOOD CELLS (BEAKER) (test 0 /100 WBC 0-0 mlhp=465) NEUTROPHILS RELATIVE PERCENT (BEAKER) (test 70 % ogtm=985) LYMPHOCYTES RELATIVE PERCENT (BEAKER) (test 22 % zxuk=570) MONOCYTES RELATIVE PERCENT (BEAKER) (test 6 % eyqn=262) EOSINOPHILS RELATIVE PERCENT (BEAKER) (test 2 % hdeb=066) BASOPHILS RELATIVE PERCENT (BEAKER) (test 0 % duai=387) NEUTROPHILS ABSOLUTE COUNT (BEAKER) (test 6.50 K/ L 1.56-6.13 impy=533) LYMPHOCYTES ABSOLUTE COUNT (BEAKER) (test 2.06 K/ L 1.18-3.74 uxoa=949) MONOCYTES ABSOLUTE COUNT (BEAKER) (test 0.51 K/ L 0.24-0.36 jvrn=177) EOSINOPHILS ABSOLUTE COUNT (BEAKER) (test 0.16 K/ L 0.04-0.36 zxsa=160) BASOPHILS ABSOLUTE COUNT (BEAKER) (test 0.02 K/ L 0.01-0.08 gsby=518) IMMATURE GRANULOCYTES-RELATIVE PERCENT (BEAKER) 1 % 0-1 (test uozw=7466) (MANUAL DIFFERENTIAL)2017-12-12 13:44:00 Test Item Value Reference Range Comments TOTAL COUNTED (BEAKER) (test intd=0478) WBC MORPHOLOGY (BEAKER) (test rfxr=892) Normal PLT MORPHOLOGY (BEAKER) (test gsez=248) Normal RBC MORPHOLOGY (BEAKER) (test cbdb=705) Normal BASIC METABOLIC [id number] 07:27:00 Test Item Value Reference Range Comments SODIUM (BEAKER) (test 132 meq/L 136-145 tcpe=084) POTASSIUM (BEAKER) (test 3.8 meq/L 3.5-5.1 dsmt=406) CHLORIDE (BEAKER) (test 105 meq/L 98-107 cmna=492) CO2 (BEAKER) (test 19 meq/L 22-29 psqo=307) BLOOD UREA NITROGEN 10 mg/dL 7-21 (BEAKER) (test owtw=445) CREATININE (BEAKER) (test 0.59 mg/dL 0.57-1.25 kftd=443) GLUCOSE RANDOM (BEAKER) 95 mg/dL 70-105 (test lrqp=338) CALCIUM (BEAKER) (test 7.3 mg/dL 8.4-10.2 lcjf=390) EGFR (BEAKER) (test 104 mL/min/1.73 sq m ESTIMATED GFR IS NOT alpv=1554) ACCURATE CREATININE CLEARANCE IN PREDICTING GLOMERULAR FILTRATION RATE. ESTIMATED GFR IS NOT APPLICABLE FOR DIALYSIS PATIENTS. [id number] 06:25:00 Test Item Value Reference Range Comments PHOSPHORUS (BEAKER) (test aths=278) 2.9 mg/dL 2.3-4.7 [id number] 06:25:00 Test Item Value Reference Range Comments MAGNESIUM (BEAKER) (test liin=943) 1.2 mg/dL 1.6-2.6 [id number] 06:19:00 Test Item Value Reference Range Comments PREALBUMIN (BEAKER) (test cgix=805) 8 mg/dL 14-45 CALCIUM, [id number] 05:08:00 Test Item Value Reference Range Comments CALCIUM IONIZED (BEAKER) (test awww=212) 1.01 mmol/L 1.12-1.27 PH, BLOOD (BEAKER) (test jnoo=9409) 7.41 CBC W/PLT COUNT & AUTO [id number] 14:04:00 Test Item Value Reference Range Comments WHITE BLOOD CELL COUNT (BEAKER) (test ztkg=403) 14.2 K/ L 3.5-10.5 RED BLOOD CELL COUNT (BEAKER) (test bwpm=210) 2.77 M/ L 3.93-5.22 HEMOGLOBIN (BEAKER) (test lsdr=741) 8.1 GM/DL 11.2-15.7 HEMATOCRIT (BEAKER) (test sltb=288) 26.0 % 34.1-44.9 MEAN CORPUSCULAR VOLUME (BEAKER) (test njhz=391) 93.9 fL 79.4-94.8 MEAN CORPUSCULAR HEMOGLOBIN (BEAKER) (test 29.2 pg 25.6-32.2 mmsa=264) MEAN CORPUSCULAR HEMOGLOBIN CONC (BEAKER) (test 31.2 GM/DL 32.2-35.5 uehr=297) RED CELL DISTRIBUTION WIDTH (BEAKER) (test 14.1 % 11.7-14.4 gtsw=623) PLATELET COUNT (BEAKER) (test oyag=672) 265 K/CU MM 150-450 MEAN PLATELET VOLUME (BEAKER) (test xicd=885) 8.8 fL 9.4-12.3 NUCLEATED RED BLOOD CELLS (BEAKER) (test 0 /100 WBC 0-0 ffnc=401) NEUTROPHILS RELATIVE PERCENT (BEAKER) (test 86 % akdv=951) LYMPHOCYTES RELATIVE PERCENT (BEAKER) (test 8 % lvcd=713) MONOCYTES RELATIVE PERCENT (BEAKER) (test 4 % oobw=172) EOSINOPHILS RELATIVE PERCENT (BEAKER) (test 0 % rrfu=470) BASOPHILS RELATIVE PERCENT (BEAKER) (test 0 % royg=705) NEUTROPHILS ABSOLUTE COUNT (BEAKER) (test 12.27 K/ L 1.56-6.13 pgac=204) LYMPHOCYTES ABSOLUTE COUNT (BEAKER) (test 1.20 K/ L 1.18-3.74 uxmm=433) MONOCYTES ABSOLUTE COUNT (BEAKER) (test 0.57 K/ L 0.24-0.36 phxf=321) EOSINOPHILS ABSOLUTE COUNT (BEAKER) (test 0.01 K/ L 0.04-0.36 fsux=009) BASOPHILS ABSOLUTE COUNT (BEAKER) (test 0.03 K/ L 0.01-0.08 zyws=525) IMMATURE GRANULOCYTES-RELATIVE PERCENT (BEAKER) 1 % 0-1 (test zlqg=3353) BASIC METABOLIC [id number] 09:23:00 Test Item Value Reference Range Comments SODIUM (BEAKER) (test 131 meq/L 136-145 tpsp=729) POTASSIUM (BEAKER) (test 5.6 meq/L 3.5-5.1 awoa=441) CHLORIDE (BEAKER) (test 105 meq/L 98-107 stuo=074) CO2 (BEAKER) (test 16 meq/L 22-29 oxgh=062) BLOOD UREA NITROGEN 2 mg/dL 7-21 (BEAKER) (test syvi=063) CREATININE (BEAKER) (test 0.64 mg/dL 0.57-1.25 sxsr=557) GLUCOSE RANDOM (BEAKER) 358 mg/dL 70-105 (test uwmq=110) CALCIUM (BEAKER) (test 7.9 mg/dL 8.4-10.2 rehy=740) EGFR (BEAKER) (test 95 mL/min/1.73 sq m ESTIMATED GFR IS NOT imnq=7945) ACCURATE CREATININE CLEARANCE IN PREDICTING GLOMERULAR FILTRATION RATE. ESTIMATED GFR IS NOT APPLICABLE FOR DIALYSIS PATIENTS. [id number] 08:54:00 Test Item Value Reference Range Comments PHOSPHORUS (BEAKER) (test breo=936) 3.3 mg/dL 2.3-4.7 [id number] 08:54:00 Test Item Value Reference Range Comments MAGNESIUM (BEAKER) (test tgil=510) 1.1 mg/dL 1.6-2.6 CALCIUM, [id number] 06:37:00 Test Item Value Reference Range Comments CALCIUM IONIZED (BEAKER) (test ruqu=441) 1.01 mmol/L 1.12-1.27 PH, BLOOD (BEAKER) (test nkjf=2365) 7.35 POCT-GLUCOSE [id number] 12:14:00 Test Item Value Reference Range Comments POC-GLUCOSE METER (BEAKER) 134 mg/dL 70-[address] [facility] [address] (test qgqv=5285) [facility] [address] POCT-GLUCOSE [id number] 08:01:00 Test Item Value Reference Range Comments POC-GLUCOSE METER (BEAKER) 130 mg/dL 70-110 TESTED AT [address] (test hibr=3642) [facility] [address] [id number] 06:36:00 Test Item Value Reference Range Comments PHOSPHORUS (BEAKER) (test nlpn=106) 3.2 mg/dL 2.3-4.7 [id number] 06:36:00 Test Item Value Reference Range Comments MAGNESIUM (BEAKER) (test znyt=300) 1.6 mg/dL 1.6-2.6 BASIC METABOLIC [id number] 06:36:00 Test Item Value Reference Range Comments SODIUM (BEAKER) (test 133 meq/L 136-145 qvsj=051) POTASSIUM (BEAKER) (test 3.8 meq/L 3.5-5.1 gvsq=914) CHLORIDE (BEAKER) (test 105 meq/L 98-107 boqq=968) CO2 (BEAKER) (test 21 meq/L 22-29 ftlz=875) BLOOD UREA NITROGEN 2 mg/dL 7-21 (BEAKER) (test msjf=787) CREATININE (BEAKER) (test 0.46 mg/dL 0.57-1.25 uaxg=128) GLUCOSE RANDOM (BEAKER) 102 mg/dL 70-105 (test qbbo=593) CALCIUM (BEAKER) (test 8.0 mg/dL 8.4-10.2 fltj=360) EGFR (BEAKER) (test 139 mL/min/1.73 sq m ESTIMATED GFR IS NOT xdkp=5872) ACCURATE CREATININE CLEARANCE IN PREDICTING GLOMERULAR FILTRATION RATE. ESTIMATED GFR IS NOT APPLICABLE FOR DIALYSIS PATIENTS. CALCIUM, [id number] 06:17:00 Test Item Value Reference Range Comments CALCIUM IONIZED (BEAKER) (test qilh=208) 1.07 mmol/L 1.12-1.27 PH, BLOOD (BEAKER) (test edkq=7793) 7.40 POCT-GLUCOSE [id number] 22:31:00 Test Item Value Reference Range Comments POC-GLUCOSE METER (BEAKER) 121 mg/dL 70-110 TESTED AT [address] (test nasg=2106) [facility] [address] POCT-GLUCOSE [id number] 18:01:00 Test Item Value Reference Range Comments POC-GLUCOSE METER (BEAKER) 132 mg/dL 70-110 TESTED AT [address] (test smfn=4784) [facility] [address] TISSUE [id number] 17:58:00Surgical Pathology Report Case: [id number] Authorizing Provider: Keyon Addison Ding Collected: 12/08/2017 1036 Ordering Location: [address] Received: 12/08/2017 1356 Service Pathologist: Ze [...] (HSV and CMV) . An addendum will follow.73534 X 2, 09156 X 2, 25660, 38424 Epigastric abdominal painA.Random gastric biopsy; B. Random [...] is incorporated in the diagnostic report above:POCT-GLUCOSE [id number] 12:36: 00 Test Item Value Reference Range Comments POC-GLUCOSE METER (BEAKER) 132 mg/dL 70-[address] [facility] [address] [facility] (test xxeo=9886) [facility] [address] POCT-GLUCOSE [id number] 08:46:00 Test Item Value Reference Range Comments POC-GLUCOSE METER (BEAKER) 158 mg/dL 70-110 TESTED AT [place] [id number] [facility] (test drap=5085) [facility] [address] CALCIUM, [id number] 05:59:00 Test Item Value Reference Range Comments CALCIUM IONIZED (BEAKER) (test ospa=000) 1.06 mmol/L 1.12-1.27 PH, BLOOD (BEAKER) (test heyh=0607) 7.40 BASIC METABOLIC [id number] 05:37:00 Test Item Value Reference Range Comments SODIUM (BEAKER) (test 136 meq/L 136-145 izuk=369) POTASSIUM (BEAKER) (test 3.9 meq/L 3.5-5.1 seqk=418) CHLORIDE (BEAKER) (test 106 meq/L 98-107 ovjd=995) CO2 (BEAKER) (test 21 meq/L 22-29 djfh=179) BLOOD UREA NITROGEN 3 mg/dL 7-21 (BEAKER) (test ywxm=901) CREATININE (BEAKER) (test 0.44 mg/dL 0.57-1.25 xrkc=926) GLUCOSE RANDOM (BEAKER) 96 mg/dL 70-105 (test mzxv=936) CALCIUM (BEAKER) (test 7.9 mg/dL 8.4-10.2 huzj=085) EGFR (BEAKER) (test 146 mL/min/1.73 sq m ESTIMATED GFR IS NOT iygw=9025) ACCURATE CREATININE CLEARANCE IN PREDICTING GLOMERULAR FILTRATION RATE. ESTIMATED GFR IS NOT APPLICABLE FOR DIALYSIS PATIENTS. [id number] 05:34:00 Test Item Value Reference Range Comments PHOSPHORUS (BEAKER) (test jqxy=403) 2.4 mg/dL 2.3-4.7 [id number] 05:34:00 Test Item Value Reference Range Comments MAGNESIUM (BEAKER) (test zdru=436) 1.9 mg/dL 1.6-2.6 [id number] 05:07:00 Test Item Value Reference Range Comments PREALBUMIN (BEAKER) (test nsqe=496) 10 mg/dL 14-45 POCT-GLUCOSE [id number] 23:01:00 Test Item Value Reference Range Comments POC-GLUCOSE METER (BEAKER) 109 mg/dL 70-110 TESTED AT [address] (test wqlf=6085) [place] [address] POCT-GLUCOSE [id number] 16:57:00 Test Item Value Reference Range Comments POC-GLUCOSE METER (BEAKER) 131 mg/dL 70-110 TESTED AT [address] (test zcqb=1893) [place] [address] POCT-GLUCOSE [id number] 13:09:00 Test Item Value Reference Range Comments POC-GLUCOSE METER (BEAKER) 97 mg/dL 70-110 TESTED AT [address] (test ixom=8438) [place] [address] URINE [id number] 12:37:00 Test Item Value Reference Range Comments CULTURE (BEAKER) (test 50-59,000 col/mL Maryanne blut=8307) glabrata POCT-GLUCOSE [id number] 09:37:00 Test Item Value Reference Range Comments POC-GLUCOSE METER (BEAKER) 121 mg/dL 70-110 TESTED AT [address] (test njem=5353) [place] [address] [id number] 08:22:00 Test Item Value Reference Range Comments PHOSPHORUS (BEAKER) (test msgu=570) 3.0 mg/dL 2.3-4.7 [id number] 08:22:00 Test Item Value Reference Range Comments MAGNESIUM (BEAKER) (test ipae=152) 1.5 mg/dL 1.6-2.6 BASIC METABOLIC [id number] 08:22:00 Test Item Value Reference Range Comments SODIUM (BEAKER) (test 135 meq/L 136-145 ilxf=318) POTASSIUM (BEAKER) (test 3.2 meq/L 3.5-5.1 rbgp=479) CHLORIDE (BEAKER) (test 101 meq/L 98-107 wmhj=520) CO2 (BEAKER) (test 22 meq/L 22-29 wija=038) BLOOD UREA NITROGEN 5 mg/dL 7-21 (BEAKER) (test rhtb=753) CREATININE (BEAKER) (test 0.47 mg/dL 0.57-1.25 viaf=392) GLUCOSE RANDOM (BEAKER) 93 mg/dL 70-105 (test udqu=006) CALCIUM (BEAKER) (test 8.1 mg/dL 8.4-10.2 wfwj=079) EGFR (BEAKER) (test 136 mL/min/1.73 sq m ESTIMATED GFR IS NOT uxzm=8708) ACCURATE CREATININE CLEARANCE IN PREDICTING GLOMERULAR FILTRATION RATE. ESTIMATED GFR IS NOT APPLICABLE FOR DIALYSIS PATIENTS. CALCIUM, [id number] 07:15:00 Test Item Value Reference Range Comments CALCIUM IONIZED (BEAKER) (test ibbh=325) 0.95 mmol/L 1.12-1.27 PH, BLOOD (BEAKER) (test gdkk=7747) 7.46 POCT-GLUCOSE [id number] 00:35:00 Test Item Value Reference Range Comments POC-GLUCOSE METER (BEAKER) 106 mg/dL 70-110 TESTED AT [address] (test xdkm=6343) [place] [address] POCT-GLUCOSE [id number] 16:38:00 Test Item Value Reference Range Comments POC-GLUCOSE METER (BEAKER) 89 mg/dL 70-110 TESTED AT [address] (test tsys=2176) [place] [id number] POCT-GLUCOSE [id number] 12:30:00 Test Item Value Reference Range Comments POC-GLUCOSE METER (BEAKER) 110 mg/dL 70-110 TESTED AT [address] (test rsta=6603) [place] [id number] POCT-GLUCOSE [id number] 08:50:00 Test Item Value Reference Range Comments POC-GLUCOSE METER (BEAKER) 125 mg/dL 70-110 TESTED AT [address] (test hpca=2954) [place] [id number] CALCIUM, [id number] 07:29:00 Test Item Value Reference Range Comments CALCIUM IONIZED (BEAKER) (test aqjw=917) 1.08 mmol/L 1.12-1.27 PH, BLOOD (BEAKER) (test rowp=1686) 7.46 [id number] 06:49:00 Test Item Value Reference Range Comments TRIGLYCERIDES (BEAKER) (test gfmg=284) 265 mg/dL TRIGLYCERIDE REFERENCE RANGELow Risk <150Borderline Risk 150-199High Risk 200-499Very High Risk>=[id number] 06:49:00 Test Item Value Reference Range Comments MAGNESIUM (BEAKER) (test ttfp=728) 1.8 mg/dL 1.6-2.6 [id number] 06:49:00 Test Item Value Reference Range Comments PHOSPHORUS (BEAKER) (test xgvn=570) 3.4 mg/dL 2.3-4.7 BASIC METABOLIC [id number] 06:49:00 Test Item Value Reference Range Comments SODIUM (BEAKER) (test 137 meq/L 136-145 wczc=294) POTASSIUM (BEAKER) (test 3.5 meq/L 3.5-5.1 zqnl=684) CHLORIDE (BEAKER) (test 100 meq/L 98-107 zyap=903) CO2 (BEAKER) (test 25 meq/L 22-29 udrg=298) BLOOD UREA NITROGEN 6 mg/dL 7-21 (BEAKER) (test thsi=820) CREATININE (BEAKER) (test 0.50 mg/dL 0.57-1.25 pzfe=978) GLUCOSE RANDOM (BEAKER) 78 mg/dL 70-105 (test mitz=033) CALCIUM (BEAKER) (test 8.5 mg/dL 8.4-10.2 dfmr=546) EGFR (BEAKER) (test 126 mL/min/1.73 sq m ESTIMATED GFR IS NOT ywnq=2215) ACCURATE CREATININE CLEARANCE IN PREDICTING GLOMERULAR FILTRATION RATE. ESTIMATED GFR IS NOT APPLICABLE FOR DIALYSIS PATIENTS. CBC (HEMOGRAM ONLY)2017-12-07 06:14:00 Test Item Value Reference Range Comments WHITE BLOOD CELL COUNT (BEAKER) (test pdsm=664) 5.8 K/ L 3.5-10.5 RED BLOOD CELL COUNT (BEAKER) (test yjcr=018) 2.76 M/ L 3.93-5.22 HEMOGLOBIN (BEAKER) (test dldo=895) 8.2 GM/DL 11.2-15.7 HEMATOCRIT (BEAKER) (test wtmf=477) 25.9 % 34.1-44.9 MEAN CORPUSCULAR VOLUME (BEAKER) (test cgyp=878) 93.8 fL 79.4-94.8 MEAN CORPUSCULAR HEMOGLOBIN (BEAKER) (test 29.7 pg 25.6-32.2 tfyq=976) MEAN CORPUSCULAR HEMOGLOBIN CONC (BEAKER) (test 31.7 GM/DL 32.2-35.5 cnna=504) RED CELL DISTRIBUTION WIDTH (BEAKER) (test 13.7 % 11.7-14.4 tlzc=025) PLATELET COUNT (BEAKER) (test cqdo=127) 194 K/CU MM 150-450 MEAN PLATELET VOLUME (BEAKER) (test lrze=050) 10.4 fL 9.4-12.3 NUCLEATED RED BLOOD CELLS (BEAKER) (test 0 /100 WBC 0-0 cadl=963) CT, [id number] 03:50:00FINAL REPORT EXAM: CT of the abdomen [...] amount of free intraperitoneal air. Signed: Doug [facility]ep[facility] Verified Date/Time: 2017 03:50:42 Reading Location: [address] Reading Room POCT- GLUCOSE [id number] 00:53:00 Test Item Value Reference Range Comments POC-GLUCOSE METER (BEAKER) 93 mg/dL 70-110 TESTED AT [address] (test hwpu=8988) [facility] [address] POCT-GLUCOSE [id number] 17:27:00 Test Item Value Reference Range Comments POC-GLUCOSE METER (BEAKER) 110 mg/dL 70-110 TESTED AT [address] (test rfua=9640) [facility] [address] POCT-GLUCOSE [id number] 13:07:00 Test Item Value Reference Range Comments POC-GLUCOSE METER (BEAKER) 102 mg/dL 70-110 TESTED AT [address] (test ojzw=0625) [facility] [address] CALCIUM, [id number] 07:35:00 Test Item Value Reference Range Comments CALCIUM IONIZED (BEAKER) (test ceag=655) 1.11 mmol/L 1.12-1.27 PH, BLOOD (BEAKER) (test okva=7003) 7.46 [id number] 06:20:00 Test Item Value Reference Range Comments PHOSPHORUS (BEAKER) (test scxq=570) 4.2 mg/dL 2.3-4.7 [id number] 06:20:00 Test Item Value Reference Range Comments MAGNESIUM (BEAKER) (test dfax=409) 1.5 mg/dL 1.6-2.6 BASIC METABOLIC [id number] 06:20:00 Test Item Value Reference Range Comments SODIUM (BEAKER) (test 131 meq/L 136-145 mevs=789) POTASSIUM (BEAKER) (test 4.5 meq/L 3.5-5.1 tpqj=876) CHLORIDE (BEAKER) (test 98 meq/L 98-107 xkja=007) CO2 (BEAKER) (test 25 meq/L 22-29 kzct=847) BLOOD UREA NITROGEN 10 mg/dL 7-21 (BEAKER) (test ucxr=149) CREATININE (BEAKER) (test 0.51 mg/dL 0.57-1.25 eijf=985) GLUCOSE RANDOM (BEAKER) 97 mg/dL 70-105 (test vbzl=226) CALCIUM (BEAKER) (test 8.6 mg/dL 8.4-10.2 ahav=610) EGFR (BEAKER) (test 123 mL/min/1.73 sq m ESTIMATED GFR IS NOT zwng=2482) ACCURATE CREATININE CLEARANCE IN PREDICTING GLOMERULAR FILTRATION RATE. ESTIMATED GFR IS NOT APPLICABLE FOR DIALYSIS PATIENTS. POCT-GLUCOSE [id number] 06:16:00 Test Item Value Reference Range Comments POC-GLUCOSE METER (BEAKER) 107 mg/dL 70-[address] [facility] [address] [facility] (test xxbq=9908) [facility] [address] CBC (HEMOGRAM ONLY)2017-12-06 06:15:00 Test Item Value Reference Range Comments WHITE BLOOD CELL COUNT (BEAKER) (test zrty=616) 9.5 K/ L 3.5-10.5 RED BLOOD CELL COUNT (BEAKER) (test racl=957) 2.75 M/ L 3.93-5.22 HEMOGLOBIN (BEAKER) (test fyzx=971) 8.1 GM/DL 11.2-15.7 HEMATOCRIT (BEAKER) (test rqwx=836) 25.9 % 34.1-44.9 MEAN CORPUSCULAR VOLUME (BEAKER) (test ntfe=320) 94.2 fL 79.4-94.8 MEAN CORPUSCULAR HEMOGLOBIN (BEAKER) (test 29.5 pg 25.6-32.2 dgge=927) MEAN CORPUSCULAR HEMOGLOBIN CONC (BEAKER) (test 31.3 GM/DL 32.2-35.5 amdq=597) RED CELL DISTRIBUTION WIDTH (BEAKER) (test 13.9 % 11.7-14.4 niuw=682) PLATELET COUNT (BEAKER) (test njka=048) 164 K/CU MM 150-450 MEAN PLATELET VOLUME (BEAKER) (test negk=423) 10.7 fL 9.4-12.3 NUCLEATED RED BLOOD CELLS (BEAKER) (test 0 /100 WBC 0-0 xzfc=857) POCT-GLUCOSE [id number] 23:31:00 Test Item Value Reference Range Comments POC-GLUCOSE METER (BEAKER) 124 mg/dL 70-110 TESTED AT [address] (test qmfh=2856) [place] [address] POCT-GLUCOSE [id number] 17:52:00 Test Item Value Reference Range Comments POC-GLUCOSE METER (BEAKER) 131 mg/dL 70-110 TESTED AT [address] (test bgof=8211) [place] [address] POCT-GLUCOSE [id number] 12:59:00 Test Item Value Reference Range Comments POC-GLUCOSE METER (BEAKER) 161 mg/dL 70-110 TESTED AT [address] (test abbn=9106) [place] [address] [id number] 05:39:00 Test Item Value Reference Range Comments PHOSPHORUS (BEAKER) (test ttdk=175) 4.4 mg/dL 2.3-4.7 [id number] 05:39:00 Test Item Value Reference Range Comments MAGNESIUM (BEAKER) (test usra=897) 1.7 mg/dL 1.6-2.6 BASIC METABOLIC [id number] 05:39:00 Test Item Value Reference Range Comments SODIUM (BEAKER) (test 133 meq/L 136-145 srnj=944) POTASSIUM (BEAKER) (test 4.3 meq/L 3.5-5.1 qgrh=641) CHLORIDE (BEAKER) (test 99 meq/L 98-107 hurs=868) CO2 (BEAKER) (test 26 meq/L 22-29 mlgv=799) BLOOD UREA NITROGEN 12 mg/dL 7-21 (BEAKER) (test mdaj=724) CREATININE (BEAKER) (test 0.48 mg/dL 0.57-1.25 htlb=781) GLUCOSE RANDOM (BEAKER) 107 mg/dL 70-105 (test yolt=352) CALCIUM (BEAKER) (test 9.3 mg/dL 8.4-10.2 pjun=240) EGFR (BEAKER) (test 132 mL/min/1.73 sq m ESTIMATED GFR IS NOT nirq=6029) ACCURATE CREATININE CLEARANCE IN PREDICTING GLOMERULAR FILTRATION RATE. ESTIMATED GFR IS NOT APPLICABLE FOR DIALYSIS PATIENTS. POCT-GLUCOSE [id number] 05:32:00 Test Item Value Reference Range Comments POC-GLUCOSE METER (BEAKER) 139 mg/dL 70-110 TESTED AT [address] (test afte=7755) [facility] [address] CALCIUM, [id number] 05:16:00 Test Item Value Reference Range Comments CALCIUM IONIZED (BEAKER) (test tjvr=222) 1.18 mmol/L 1.12-1.27 PH, BLOOD (BEAKER) (test ipfs=9685) 7.43 CBC (HEMOGRAM ONLY)2017-12-05 05:02:00 Test Item Value Reference Range Comments WHITE BLOOD CELL COUNT (BEAKER) (test yjnz=916) 7.8 K/ L 3.5-10.5 RED BLOOD CELL COUNT (BEAKER) (test wmky=449) 3.01 M/ L 3.93-5.22 HEMOGLOBIN (BEAKER) (test hzxo=032) 8.8 GM/DL 11.2-15.7 HEMATOCRIT (BEAKER) (test fjhg=645) 28.3 % 34.1-44.9 MEAN CORPUSCULAR VOLUME (BEAKER) (test zpcn=850) 94.0 fL 79.4-94.8 MEAN CORPUSCULAR HEMOGLOBIN (BEAKER) (test 29.2 pg 25.6-32.2 wrst=955) MEAN CORPUSCULAR HEMOGLOBIN CONC (BEAKER) (test 31.1 GM/DL 32.2-35.5 wcqi=948) RED CELL DISTRIBUTION WIDTH (BEAKER) (test 14.0 % 11.7-14.4 lprl=355) PLATELET COUNT (BEAKER) (test wmns=250) 160 K/CU MM 150-450 MEAN PLATELET VOLUME (BEAKER) (test yhnz=790) 10.7 fL 9.4-12.3 NUCLEATED RED BLOOD CELLS (BEAKER) (test 0 /100 WBC 0-0 hbjd=533) POCT-GLUCOSE [id number] 23:00:00 Test Item Value Reference Range Comments POC-GLUCOSE METER (BEAKER) 145 mg/dL 70-110 TESTED AT [address] (test jovb=8637) [place] [address] POCT-GLUCOSE [id number] 17:41:00 Test Item Value Reference Range Comments POC-GLUCOSE METER (BEAKER) 128 mg/dL 70-110 TESTED AT [address] (test mbwr=1897) [place] [id number] URINALYSIS W/ [id number] 16:27:00 Test Item Value Reference Range Comments COLOR (BEAKER) (test grmu=722) Yellow CLARITY (BEAKER) (test ikhr=690) Clear SPECIFIC GRAVITY UA (BEAKER) (test 1.008 1.001-1.035 xkgz=919) PH UA (BEAKER) (test fhlp=899) 6.0 5.0-8.0 PROTEIN UA (BEAKER) (test fbhi=195) Negative Negative GLUCOSE UA (BEAKER) (test wpcf=140) Negative Negative KETONES UA (BEAKER) (test ehwy=737) Negative Negative BILIRUBIN UA (BEAKER) (test lzdj=229) Negative Negative BLOOD UA (BEAKER) (test nokr=404) Negative Negative NITRITE UA (BEAKER) (test finj=929) Negative Negative LEUKOCYTE ESTERASE UA (BEAKER) (test Negative Negative pkzb=126) UROBILINOGEN UA (BEAKER) (test dcnn=175) 0.2 mg/dL 0.2-1.0 RBC UA (BEAKER) (test rizy=850) < /HPF WBC UA (BEAKER) (test zixj=462) 2 /HPF SOURCE(BEAKER) (test ernu=2223) Urine, Clean Catch CBC (HEMOGRAM ONLY)2017-12-04 13:13:00 Test Item Value Reference Range Comments WHITE BLOOD CELL COUNT (BEAKER) (test jyss=624) 7.4 K/ L 3.5-10.5 RED BLOOD CELL COUNT (BEAKER) (test fvyz=562) 2.81 M/ L 3.93-5.22 HEMOGLOBIN (BEAKER) (test vioh=074) 8.1 GM/DL 11.2-15.7 HEMATOCRIT (BEAKER) (test pmzu=407) 26.2 % 34.1-44.9 MEAN CORPUSCULAR VOLUME (BEAKER) (test gsqn=088) 93.2 fL 79.4-94.8 MEAN CORPUSCULAR HEMOGLOBIN (BEAKER) (test 28.8 pg 25.6-32.2 tijm=969) MEAN CORPUSCULAR HEMOGLOBIN CONC (BEAKER) (test 30.9 GM/DL 32.2-35.5 twjz=632) RED CELL DISTRIBUTION WIDTH (BEAKER) (test 14.2 % 11.7-14.4 txuu=608) PLATELET COUNT (BEAKER) (test nvzc=596) 142 K/CU MM 150-450 MEAN PLATELET VOLUME (BEAKER) (test lysa=590) 11.0 fL 9.4-12.3 NUCLEATED RED BLOOD CELLS (BEAKER) (test 0 /100 WBC 0-0 ukmr=638) POCT-GLUCOSE [id number] 13:06:00 Test Item Value Reference Range Comments POC-GLUCOSE METER (BEAKER) 162 mg/dL 70-110 TESTED AT [address] (test hyxz=4588) [facility] [address] CALCIUM, [id number] 06:59:00 Test Item Value Reference Range Comments CALCIUM IONIZED (BEAKER) (test ggne=803) 1.06 mmol/L 1.12-1.27 PH, BLOOD (BEAKER) (test eexr=7793) 7.45 POCT-GLUCOSE [id number] 06:20:00 Test Item Value Reference Range Comments POC-GLUCOSE METER (BEAKER) 148 mg/dL 70-110 TESTED AT [address] (test dhsv=2861) [facility] [address] [id number] 05:22:00 Test Item Value Reference Range Comments PHOSPHORUS (BEAKER) (test atia=382) 4.1 mg/dL 2.3-4.7 [id number] 05:22:00 Test Item Value Reference Range Comments MAGNESIUM (BEAKER) (test puzh=021) 1.5 mg/dL 1.6-2.6 BASIC METABOLIC [id number] 05:22:00 Test Item Value Reference Range Comments SODIUM (BEAKER) (test 132 meq/L 136-145 qtzd=612) POTASSIUM (BEAKER) (test 4.3 meq/L 3.5-5.1 axwb=106) CHLORIDE (BEAKER) (test 100 meq/L 98-107 rqtk=865) CO2 (BEAKER) (test 25 meq/L 22-29 uikh=754) BLOOD UREA NITROGEN 14 mg/dL 7-21 (BEAKER) (test osvx=789) CREATININE (BEAKER) (test 0.46 mg/dL 0.57-1.25 nwjd=010) GLUCOSE RANDOM (BEAKER) 124 mg/dL 70-105 (test snhg=072) CALCIUM (BEAKER) (test 9.0 mg/dL 8.4-10.2 gziv=200) EGFR (BEAKER) (test 139 mL/min/1.73 sq m ESTIMATED GFR IS NOT ksto=5254) ACCURATE CREATININE CLEARANCE IN PREDICTING GLOMERULAR FILTRATION RATE. ESTIMATED GFR IS NOT APPLICABLE FOR DIALYSIS PATIENTS. POCT-GLUCOSE [id number] 00:05:00 Test Item Value Reference Range Comments POC-GLUCOSE METER (BEAKER) 153 mg/dL 70-110 TESTED AT [address] (test lfon=9505) [facility] [address] POCT-GLUCOSE [id number] 17:48:00 Test Item Value Reference Range Comments POC-GLUCOSE METER (BEAKER) 85 mg/dL 70-110 TESTED AT [address] (test crpz=8398) [facility] [address] POCT-GLUCOSE [id number] 12:27:00 Test Item Value Reference Range Comments POC-GLUCOSE METER (BEAKER) 163 mg/dL 70-110 TESTED AT [address] (test aahe=2238) [facility] [address] CALCIUM, [id number] 06:23:00 Test Item Value Reference Range Comments CALCIUM IONIZED (BEAKER) (test upop=515) 1.16 mmol/L 1.12-1.27 PH, BLOOD (BEAKER) (test tlyk=8805) 7.35 POCT-GLUCOSE [id number] 05:48:00 Test Item Value Reference Range Comments POC-GLUCOSE METER (BEAKER) 121 mg/dL 70-[address] [facility] [address] [facility] (test olvq=5322) [facility] [address] [id number] 04:21:00 Test Item Value Reference Range Comments PHOSPHORUS (BEAKER) (test tisr=140) 4.0 mg/dL 2.3-4.7 [id number] 04:21:00 Test Item Value Reference Range Comments MAGNESIUM (BEAKER) (test gzan=965) 1.9 mg/dL 1.6-2.6 BASIC METABOLIC [id number] 04:21:00 Test Item Value Reference Range Comments SODIUM (BEAKER) (test 136 meq/L 136-145 xdps=102) POTASSIUM (BEAKER) (test 4.4 meq/L 3.5-5.1 djpl=791) CHLORIDE (BEAKER) (test 104 meq/L 98-107 ggek=593) CO2 (BEAKER) (test 27 meq/L 22-29 fytw=486) BLOOD UREA NITROGEN 16 mg/dL 7-21 (BEAKER) (test buyi=759) CREATININE (BEAKER) (test 0.46 mg/dL 0.57-1.25 iqtv=500) GLUCOSE RANDOM (BEAKER) 94 mg/dL 70-105 (test oemo=419) CALCIUM (BEAKER) (test 8.8 mg/dL 8.4-10.2 micw=976) EGFR (BEAKER) (test 139 mL/min/1.73 sq m ESTIMATED GFR IS NOT pess=7363) ACCURATE CREATININE CLEARANCE IN PREDICTING GLOMERULAR FILTRATION RATE. ESTIMATED GFR IS NOT APPLICABLE FOR DIALYSIS PATIENTS. POCT-GLUCOSE [id number] 23:26:00 Test Item Value Reference Range Comments POC-GLUCOSE METER (BEAKER) 149 mg/dL 70-[address] [facility] [address] [facility] (test fylm=6223) [facility] [address] POCT-GLUCOSE [id number] 18:05:00 Test Item Value Reference Range Comments POC-GLUCOSE METER (BEAKER) 153 mg/dL 70-[address] [facility] [address] [facility] (test asyb=6380) [facility] [address] POCT-GLUCOSE [id number] 12:29:00 Test Item Value Reference Range Comments POC-GLUCOSE METER (BEAKER) 146 mg/dL 70-[address] [facility] [address] [facility] (test cepv=4588) [facility] [address] [id number] 07:57:00 Test Item Value Reference Range Comments PHOSPHORUS (BEAKER) (test pgor=153) 3.5 mg/dL 2.3-4.7 [id number] 07:57:00 Test Item Value Reference Range Comments MAGNESIUM (BEAKER) (test cnfu=488) 1.8 mg/dL 1.6-2.6 BASIC METABOLIC [id number] 07:57:00 Test Item Value Reference Range Comments SODIUM (BEAKER) (test 135 meq/L 136-145 msfn=653) POTASSIUM (BEAKER) (test 4.2 meq/L 3.5-5.1 cdti=186) CHLORIDE (BEAKER) (test 102 meq/L 98-107 jgjz=286) CO2 (BEAKER) (test 25 meq/L 22-29 fnfr=774) BLOOD UREA NITROGEN 18 mg/dL 7-21 (BEAKER) (test pvqo=913) CREATININE (BEAKER) (test 0.44 mg/dL 0.57-1.25 iaqq=247) GLUCOSE RANDOM (BEAKER) 111 mg/dL 70-105 (test plug=724) CALCIUM (BEAKER) (test 8.7 mg/dL 8.4-10.2 fgsa=147) EGFR (BEAKER) (test 146 mL/min/1.73 sq m ESTIMATED GFR IS NOT ldpo=0392) ACCURATE CREATININE CLEARANCE IN PREDICTING GLOMERULAR FILTRATION RATE. ESTIMATED GFR IS NOT APPLICABLE FOR DIALYSIS PATIENTS. [id number] 06:58:00 Test Item Value Reference Range Comments PREALBUMIN (BEAKER) (test yjkr=855) 18 mg/dL 14-45 CALCIUM, [id number] 06:30:00 Test Item Value Reference Range Comments CALCIUM IONIZED (BEAKER) (test alcc=857) 1.11 mmol/L 1.12-1.27 PH, BLOOD (BEAKER) (test zbkk=9296) 7.36 POCT-GLUCOSE [id number] 05:52:00 Test Item Value Reference Range Comments POC-GLUCOSE METER (BEAKER) 131 mg/dL 70-110 TESTED AT [address] (test sete=5096) [facility] [address] POCT-GLUCOSE [id number] 00:36:00 Test Item Value Reference Range Comments POC-GLUCOSE METER (BEAKER) 121 mg/dL 70-110 TESTED AT [address] (test ides=0462) [facility] [address] POCT-GLUCOSE [id number] 17:52:00 Test Item Value Reference Range Comments POC-GLUCOSE METER (BEAKER) 150 mg/dL 70-110 TESTED AT [address] (test kanw=9154) [facility] [address] POCT-GLUCOSE [id number] 12:17:00 Test Item Value Reference Range Comments POC-GLUCOSE METER (BEAKER) 138 mg/dL 70-110 TESTED AT [address] (test ogit=9310) [facility] [address] [id number] 07:15:00 Test Item Value Reference Range Comments PHOSPHORUS (BEAKER) (test qlah=866) 3.8 mg/dL 2.3-4.7 [id number] 07:15:00 Test Item Value Reference Range Comments MAGNESIUM (BEAKER) (test ojbs=773) 1.8 mg/dL 1.6-2.6 BASIC METABOLIC [id number] 07:15:00 Test Item Value Reference Range Comments SODIUM (BEAKER) (test 136 meq/L 136-145 aauy=812) POTASSIUM (BEAKER) (test 4.1 meq/L 3.5-5.1 rjxd=717) CHLORIDE (BEAKER) (test 105 meq/L 98-107 lxth=770) CO2 (BEAKER) (test 25 meq/L 22-29 oaxl=383) BLOOD UREA NITROGEN 18 mg/dL 7-21 (BEAKER) (test zfqa=338) CREATININE (BEAKER) (test 0.47 mg/dL 0.57-1.25 boal=108) GLUCOSE RANDOM (BEAKER) 101 mg/dL 70-105 (test yjjs=642) CALCIUM (BEAKER) (test 8.7 mg/dL 8.4-10.2 tesw=303) EGFR (BEAKER) (test 136 mL/min/1.73 sq m ESTIMATED GFR IS NOT ousb=0196) ACCURATE CREATININE CLEARANCE IN PREDICTING GLOMERULAR FILTRATION RATE. ESTIMATED GFR IS NOT APPLICABLE FOR DIALYSIS PATIENTS. CALCIUM, [id number] 06:52:00 Test Item Value Reference Range Comments CALCIUM IONIZED (BEAKER) (test tgkf=962) 1.20 mmol/L 1.12-1.27 PH, BLOOD (BEAKER) (test pinb=3263) 7.35 POCT-GLUCOSE [id number] 05:27:00 Test Item Value Reference Range Comments POC-GLUCOSE METER (BEAKER) 139 mg/dL 70-110 TESTED AT [address] (test fqaf=0297) [place] [id number] POCT-GLUCOSE [id number] 23:45:00 Test Item Value Reference Range Comments POC-GLUCOSE METER (BEAKER) 147 mg/dL 70-110 TESTED AT [address] (test hytr=5629) [place] [id number] POCT-GLUCOSE [id number] 18:19:00 Test Item Value Reference Range Comments POC-GLUCOSE METER (BEAKER) 145 mg/dL 70-110 TESTED AT [address] (test cttj=9893) [place] [id number] POCT-GLUCOSE [id number] 12:30:00 Test Item Value Reference Range Comments POC-GLUCOSE METER (BEAKER) 149 mg/dL 70-110 TESTED AT [address] (test zdqt=8705) [place] [id number] CALCIUM, [id number] 05:40:00 Test Item Value Reference Range Comments CALCIUM IONIZED (BEAKER) (test yphv=341) 1.17 mmol/L 1.12-1.27 PH, BLOOD (BEAKER) (test lmtz=2094) 7.39 POCT-GLUCOSE [id number] 05:16:00 Test Item Value Reference Range Comments POC-GLUCOSE METER (BEAKER) 164 mg/dL 70-110 TESTED AT [address] (test lekz=0775) [facility] [address] [id number] 04:31:00 Test Item Value Reference Range Comments TRIGLYCERIDES (BEAKER) (test uqwt=080) 187 mg/dL TRIGLYCERIDE REFERENCE RANGELow Risk <150Borderline Risk 150-199High Risk 200-499Very High Risk>=[id number] 04:31:00 Test Item Value Reference Range Comments MAGNESIUM (BEAKER) (test gsmy=966) 1.7 mg/dL 1.6-2.6 [id number] 04:31:00 Test Item Value Reference Range Comments PHOSPHORUS (BEAKER) (test ijsu=007) 3.9 mg/dL 2.3-4.7 BASIC METABOLIC [id number] 04:31:00 Test Item Value Reference Range Comments SODIUM (BEAKER) (test 136 meq/L 136-145 fdtn=438) POTASSIUM (BEAKER) (test 4.1 meq/L 3.5-5.1 xhon=154) CHLORIDE (BEAKER) (test 106 meq/L 98-107 stiv=401) CO2 (BEAKER) (test 23 meq/L 22-29 gmyi=820) BLOOD UREA NITROGEN 21 mg/dL 7-21 (BEAKER) (test izyg=026) CREATININE (BEAKER) (test 0.49 mg/dL 0.57-1.25 jcqg=417) GLUCOSE RANDOM (BEAKER) 108 mg/dL 70-105 (test sqra=995) CALCIUM (BEAKER) (test 8.6 mg/dL 8.4-10.2 hqub=583) EGFR (BEAKER) (test 129 mL/min/1.73 sq m ESTIMATED GFR IS NOT otte=1377) ACCURATE CREATININE CLEARANCE IN PREDICTING GLOMERULAR FILTRATION RATE. ESTIMATED GFR IS NOT APPLICABLE FOR DIALYSIS PATIENTS. CBC (HEMOGRAM ONLY)2017-11-30 04:08:00 Test Item Value Reference Range Comments WHITE BLOOD CELL COUNT (BEAKER) (test tarr=065) 4.9 K/ L 3.5-10.5 RED BLOOD CELL COUNT (BEAKER) (test txxe=474) 2.81 M/ L 3.93-5.22 HEMOGLOBIN (BEAKER) (test cskw=273) 8.3 GM/DL 11.2-15.7 HEMATOCRIT (BEAKER) (test ybxu=014) 26.9 % 34.1-44.9 MEAN CORPUSCULAR VOLUME (BEAKER) (test batu=157) 95.7 fL 79.4-94.8 MEAN CORPUSCULAR HEMOGLOBIN (BEAKER) (test 29.5 pg 25.6-32.2 doqv=484) MEAN CORPUSCULAR HEMOGLOBIN CONC (BEAKER) (test 30.9 GM/DL 32.2-35.5 srou=115) RED CELL DISTRIBUTION WIDTH (BEAKER) (test 14.7 % 11.7-14.4 kimp=542) PLATELET COUNT (BEAKER) (test iqng=505) 151 K/CU MM 150-450 MEAN PLATELET VOLUME (BEAKER) (test fgnj=440) 11.3 fL 9.4-12.3 NUCLEATED RED BLOOD CELLS (BEAKER) (test 0 /100 WBC 0-0 zxsa=074) POCT-GLUCOSE [id number] 23:11:00 Test Item Value Reference Range Comments POC-GLUCOSE METER (BEAKER) 136 mg/dL 70-[address] [facility] [address] [facility] (test gmvb=7932) [facility] [address] URINALYSIS W/ REFLEX URINE [id number] 17:19:00 Test Item Value Reference Range Comments COLOR (BEAKER) (test xesf=381) Yellow CLARITY (BEAKER) (test egig=943) Clear SPECIFIC GRAVITY UA (BEAKER) (test szyj=445) 1.015 1.001-1.035 PH UA (BEAKER) (test shov=490) 5.5 5.0-8.0 PROTEIN UA (BEAKER) (test rzch=213) 20 mg/dL Negative GLUCOSE UA (BEAKER) (test svnl=340) Negative Negative KETONES UA (BEAKER) (test aoqv=553) Negative Negative BILIRUBIN UA (BEAKER) (test lfhf=860) Negative Negative BLOOD UA (BEAKER) (test fbgn=327) Negative Negative NITRITE UA (BEAKER) (test fqya=982) Negative Negative LEUKOCYTE ESTERASE UA (BEAKER) (test psis=837) Negative Negative UROBILINOGEN UA (BEAKER) (test hgni=685) 0.2 mg/dL 0.2-1.0 RBC UA (BEAKER) (test uvqv=050) < /HPF WBC UA (BEAKER) (test yqtw=455) 1 /HPF BACTERIA (BEAKER) (test gnbh=661) Occasional MUCUS (BEAKER) (test nzpd=8915) Rare SOURCE(BEAKER) (test rews=6865) POCT-GLUCOSE [id number] 17:03:00 Test Item Value Reference Range Comments POC-GLUCOSE METER (BEAKER) 213 mg/dL 70-110 TESTED AT [place] [id number] [facility] (test vwav=2567) [facility] [address] POCT-GLUCOSE [id number] 13:24:00 Test Item Value Reference Range Comments POC-GLUCOSE METER (BEAKER) 127 mg/dL 70-110 TESTED AT [address] (test kzwe=2107) [facility] [address] POCT-GLUCOSE [id number] 06:03:00 Test Item Value Reference Range Comments POC-GLUCOSE METER (BEAKER) 95 mg/dL 70-110 TESTED AT [address] (test lcqi=2622) [facility] [address] CALCIUM, [id number] 05:01:00 Test Item Value Reference Range Comments CALCIUM IONIZED (BEAKER) (test sjwf=101) 1.17 mmol/L 1.12-1.27 PH, BLOOD (BEAKER) (test tytp=5479) 7.37 [id number] 04:51:00 Test Item Value Reference Range Comments PHOSPHORUS (BEAKER) (test pyug=908) 3.9 mg/dL 2.3-4.7 [id number] 04:51:00 Test Item Value Reference Range Comments MAGNESIUM (BEAKER) (test jihh=810) 2.0 mg/dL 1.6-2.6 BASIC METABOLIC [id number] 04:51:00 Test Item Value Reference Range Comments SODIUM (BEAKER) (test 136 meq/L 136-145 zgzk=017) POTASSIUM (BEAKER) (test 4.6 meq/L 3.5-5.1 mlro=547) CHLORIDE (BEAKER) (test 105 meq/L 98-107 hbgx=089) CO2 (BEAKER) (test 23 meq/L 22-29 fwsg=403) BLOOD UREA NITROGEN 22 mg/dL 7-21 (BEAKER) (test ctuq=053) CREATININE (BEAKER) (test 0.51 mg/dL 0.57-1.25 tjjs=184) GLUCOSE RANDOM (BEAKER) 137 mg/dL 70-105 (test cpmr=327) CALCIUM (BEAKER) (test 8.8 mg/dL 8.4-10.2 rxxp=374) EGFR (BEAKER) (test 123 mL/min/1.73 sq m ESTIMATED GFR IS NOT cxbt=4102) ACCURATE CREATININE CLEARANCE IN PREDICTING GLOMERULAR FILTRATION RATE. ESTIMATED GFR IS NOT APPLICABLE FOR DIALYSIS PATIENTS. PROTHROMBIN [id number] 04:43:00 Test Item Value Reference Range Comments PROTIME (BEAKER) (test wgqd=349) 15.0 seconds 11.7-14.7 INR (BEAKER) (test gwag=492) 1.2 <=5.9 RECOMMENDED COUMADIN/WARFARIN INR THERAPY RANGESSTANDARD DOSE: 2.0 - 3.0 Includes: PROPHYLAXIS forvenous thrombosis, systemic embolization; TREATMENT for venous thrombosis and/or pulmonary embolus.HIGH RISK: Target INR is 2.5-3.5 for patients with mechanical heart valves.CBC W/PLT COUNT & AUTO [id number] 04:34:00 Test Item Value Reference Range Comments WHITE BLOOD CELL COUNT (BEAKER) (test tkpo=807) 5.2 K/ L 3.5-10.5 RED BLOOD CELL COUNT (BEAKER) (test bxuv=493) 2.88 M/ L 3.93-5.22 HEMOGLOBIN (BEAKER) (test dgsr=696) 8.7 GM/DL 11.2-15.7 HEMATOCRIT (BEAKER) (test pouf=918) 28.0 % 34.1-44.9 MEAN CORPUSCULAR VOLUME (BEAKER) (test xmsn=950) 97.2 fL 79.4-94.8 MEAN CORPUSCULAR HEMOGLOBIN (BEAKER) (test 30.2 pg 25.6-32.2 mgjs=821) MEAN CORPUSCULAR HEMOGLOBIN CONC (BEAKER) (test 31.1 GM/DL 32.2-35.5 zkio=060) RED CELL DISTRIBUTION WIDTH (BEAKER) (test 14.8 % 11.7-14.4 mhzl=305) PLATELET COUNT (BEAKER) (test oqeh=130) 154 K/CU MM 150-450 MEAN PLATELET VOLUME (BEAKER) (test lsrn=310) 11.2 fL 9.4-12.3 NUCLEATED RED BLOOD CELLS (BEAKER) (test 0 /100 WBC 0-0 awtk=270) NEUTROPHILS RELATIVE PERCENT (BEAKER) (test 64 % izws=592) LYMPHOCYTES RELATIVE PERCENT (BEAKER) (test 28 % omaa=823) MONOCYTES RELATIVE PERCENT (BEAKER) (test 6 % oikb=415) EOSINOPHILS RELATIVE PERCENT (BEAKER) (test 1 % dokg=838) BASOPHILS RELATIVE PERCENT (BEAKER) (test 0 % kwwv=916) NEUTROPHILS ABSOLUTE COUNT (BEAKER) (test 3.36 K/ L 1.56-6.13 kowm=632) LYMPHOCYTES ABSOLUTE COUNT (BEAKER) (test 1.45 K/ L 1.18-3.74 deyu=110) MONOCYTES ABSOLUTE COUNT (BEAKER) (test 0.33 K/ L 0.24-0.36 fztl=653) EOSINOPHILS ABSOLUTE COUNT (BEAKER) (test 0.05 K/ L 0.04-0.36 wcrf=672) BASOPHILS ABSOLUTE COUNT (BEAKER) (test 0.02 K/ L 0.01-0.08 yihc=046) IMMATURE GRANULOCYTES-RELATIVE PERCENT (BEAKER) 0 % 0-1 (test mqqy=5389) POCT-GLUCOSE [id number] 23:04:00 Test Item Value Reference Range Comments POC-GLUCOSE METER (BEAKER) 153 mg/dL 70-[address] [facility] [address] [facility] (test wqfz=2188) [facility] [address] POCT-GLUCOSE [id number] 18:13:00 Test Item Value Reference Range Comments POC-GLUCOSE METER (BEAKER) 141 mg/dL 70-110 TESTED AT [place] [id number] [facility] (test sguf=7814) [facility] [address] [address], [id number] 16:02:00Please use PO contrastFINAL REPORT CT scan [...] above. No drainable collection seen. Signed: Magdi [place] Verified Date/Time: 11/28/2017 16:02:25 Reading Location: [address] Consult Reading Room Electronically signed by: MAGDI ROLON M.D. on 08/2018 04:02 PMPOCT-GLUCOSE [id number] 12:56:00 Test Item Value Reference Range Comments POC-GLUCOSE METER (BEAKER) 282 mg/dL 70-[address] [facility] [address] [facility] (test inzv=5434) [facility] [address] FUNGUS CULTURE + [id number] 11:42:00 Test Item Value Reference Range Comments CULTURE (BEAKER) (test 4+ Same organism has been totd=3528) isolated from culture(s) of the same body site and collection date. Repeat identification performed only after consultation with the clinical microbiology laboratory.Refer to previous culture ofCandida parapsilosis FUNGUS SMEAR (BEAKER) No fungi seen (test pltj=8142) POCT-GLUCOSE [id number] 06:07:00 Test Item Value Reference Range Comments POC-GLUCOSE METER (BEAKER) 191 mg/dL 70-[address] [facility] [address] (test xvtz=9259) [place] [address] CALCIUM, [id number] 05:04:00 Test Item Value Reference Range Comments CALCIUM IONIZED (BEAKER) (test vhmq=822) 1.09 mmol/L 1.12-1.27 PH, BLOOD (BEAKER) (test buzm=5126) 7.40 [id number] 04:52:00 Test Item Value Reference Range Comments PHOSPHORUS (BEAKER) (test ejtc=392) 3.9 mg/dL 2.3-4.7 [id number] 04:52:00 Test Item Value Reference Range Comments MAGNESIUM (BEAKER) (test plnw=412) 1.9 mg/dL 1.6-2.6 BASIC METABOLIC [id number] 04:52:00 Test Item Value Reference Range Comments SODIUM (BEAKER) (test 135 meq/L 136-145 lcfw=481) POTASSIUM (BEAKER) (test 4.7 meq/L 3.5-5.1 tzmr=543) CHLORIDE (BEAKER) (test 106 meq/L 98-107 msxe=268) CO2 (BEAKER) (test 20 meq/L 22-29 wvrm=223) BLOOD UREA NITROGEN 22 mg/dL 7-21 (BEAKER) (test gutm=661) CREATININE (BEAKER) (test 0.51 mg/dL 0.57-1.25 peca=503) GLUCOSE RANDOM (BEAKER) 154 mg/dL 70-105 (test pmtw=817) CALCIUM (BEAKER) (test 8.7 mg/dL 8.4-10.2 owcz=353) EGFR (BEAKER) (test 123 mL/min/1.73 sq m ESTIMATED GFR IS NOT uegt=9811) ACCURATE CREATININE CLEARANCE IN PREDICTING GLOMERULAR FILTRATION RATE. ESTIMATED GFR IS NOT APPLICABLE FOR DIALYSIS PATIENTS. PROTHROMBIN [id number] 03:58:00 Test Item Value Reference Range Comments PROTIME (BEAKER) (test eyff=573) 15.3 seconds 11.7-14.7 INR (BEAKER) (test keue=778) 1.2 <=5.9 RECOMMENDED COUMADIN/WARFARIN INR THERAPY RANGESSTANDARD DOSE: 2.0 - 3.0 Includes: PROPHYLAXIS forvenous thrombosis, systemic embolization; TREATMENT for venous thrombosis and/or pulmonary embolus.HIGH RISK: Target INR is 2.5-3.5 for patients with mechanical heart valves.CBC W/PLT COUNT & AUTO [id number] 03:45:00 Test Item Value Reference Range Comments WHITE BLOOD CELL COUNT (BEAKER) (test ydsc=545) 5.4 K/ L 3.5-10.5 RED BLOOD CELL COUNT (BEAKER) (test qjvh=287) 2.93 M/ L 3.93-5.22 HEMOGLOBIN (BEAKER) (test ahmk=238) 8.7 GM/DL 11.2-15.7 HEMATOCRIT (BEAKER) (test ngja=296) 28.1 % 34.1-44.9 MEAN CORPUSCULAR VOLUME (BEAKER) (test oiid=933) 95.9 fL 79.4-94.8 MEAN CORPUSCULAR HEMOGLOBIN (BEAKER) (test 29.7 pg 25.6-32.2 atzu=061) MEAN CORPUSCULAR HEMOGLOBIN CONC (BEAKER) (test 31.0 GM/DL 32.2-35.5 fhwz=823) RED CELL DISTRIBUTION WIDTH (BEAKER) (test 14.7 % 11.7-14.4 mkcj=393) PLATELET COUNT (BEAKER) (test dxin=053) 165 K/CU MM 150-450 MEAN PLATELET VOLUME (BEAKER) (test oekq=911) 11.5 fL 9.4-12.3 NUCLEATED RED BLOOD CELLS (BEAKER) (test 0 /100 WBC 0-0 xyrm=555) NEUTROPHILS RELATIVE PERCENT (BEAKER) (test 71 % imop=128) LYMPHOCYTES RELATIVE PERCENT (BEAKER) (test 19 % ozvy=614) MONOCYTES RELATIVE PERCENT (BEAKER) (test 7 % uwna=483) EOSINOPHILS RELATIVE PERCENT (BEAKER) (test 1 % pvba=352) BASOPHILS RELATIVE PERCENT (BEAKER) (test 1 % hoxq=409) NEUTROPHILS ABSOLUTE COUNT (BEAKER) (test 3.85 K/ L 1.56-6.13 uphu=148) LYMPHOCYTES ABSOLUTE COUNT (BEAKER) (test 1.05 K/ L 1.18-3.74 assh=120) MONOCYTES ABSOLUTE COUNT (BEAKER) (test 0.40 K/ L 0.24-0.36 oygd=745) EOSINOPHILS ABSOLUTE COUNT (BEAKER) (test 0.05 K/ L 0.04-0.36 ahdg=038) BASOPHILS ABSOLUTE COUNT (BEAKER) (test 0.03 K/ L 0.01-0.08 zpyu=890) IMMATURE GRANULOCYTES-RELATIVE PERCENT (BEAKER) 0 % 0-1 (test ignn=6409) POCT-GLUCOSE [id number] 23:07:00 Test Item Value Reference Range Comments POC-GLUCOSE METER (BEAKER) 139 mg/dL 70-110 TESTED AT [address] (test arve=0108) [facility] [address] POCT-GLUCOSE [id number] 17:14:00 Test Item Value Reference Range Comments POC-GLUCOSE METER (BEAKER) 146 mg/dL 70-110 TESTED AT [address] (test zviq=1503) [facility] [address] POCT-GLUCOSE [id number] 11:55:00 Test Item Value Reference Range Comments POC-GLUCOSE METER (BEAKER) 172 mg/dL 70-110 TESTED AT [address] (test apqk=2923) [facility] [address] CALCIUM, [id number] 08:29:00 Test Item Value Reference Range Comments CALCIUM IONIZED (BEAKER) (test emha=689) 1.14 mmol/L 1.12-1.27 PH, BLOOD (BEAKER) (test xswe=5515) 7.33 [id number] 06:29:00 Test Item Value Reference Range Comments PHOSPHORUS (BEAKER) (test hnee=154) 4.2 mg/dL 2.3-4.7 [id number] 06:29:00 Test Item Value Reference Range Comments MAGNESIUM (BEAKER) (test jfxx=668) 1.9 mg/dL 1.6-2.6 BASIC METABOLIC [id number] 06:29:00 Test Item Value Reference Range Comments SODIUM (BEAKER) (test 136 meq/L 136-145 gjzf=987) POTASSIUM (BEAKER) (test 4.6 meq/L 3.5-5.1 xgdg=285) CHLORIDE (BEAKER) (test 105 meq/L 98-107 plvb=106) CO2 (BEAKER) (test 25 meq/L 22-29 glnz=523) BLOOD UREA NITROGEN 23 mg/dL 7-21 (BEAKER) (test fope=767) CREATININE (BEAKER) (test 0.54 mg/dL 0.57-1.25 qavk=141) GLUCOSE RANDOM (BEAKER) 176 mg/dL 70-105 (test jizt=831) CALCIUM (BEAKER) (test 8.6 mg/dL 8.4-10.2 htcv=281) EGFR (BEAKER) (test 116 mL/min/1.73 sq m ESTIMATED GFR IS NOT rqrt=2076) ACCURATE CREATININE CLEARANCE IN PREDICTING GLOMERULAR FILTRATION RATE. ESTIMATED GFR IS NOT APPLICABLE FOR DIALYSIS PATIENTS. PROTHROMBIN TIME/[id number] 06:13:00 Test Item Value Reference Range Comments PROTIME (BEAKER) (test zzil=934) 16.0 seconds 11.7-14.7 INR (BEAKER) (test wnml=574) 1.3 <=5.9 RECOMMENDED COUMADIN/WARFARIN INR THERAPY RANGESSTANDARD DOSE: 2.0 - 3.0 Includes: PROPHYLAXIS forvenous thrombosis, systemic embolization; TREATMENT for venous thrombosis and/or pulmonary embolus.HIGH RISK: Target INR is 2.5-3.5 for patients with mechanical heart valves.CBC W/PLT COUNT & AUTO [id number] 05:59:00 Test Item Value Reference Range Comments WHITE BLOOD CELL COUNT (BEAKER) (test tmmj=458) 5.7 K/ L 3.5-10.5 RED BLOOD CELL COUNT (BEAKER) (test yvgl=664) 3.01 M/ L 3.93-5.22 HEMOGLOBIN (BEAKER) (test qlzl=374) 9.0 GM/DL 11.2-15.7 HEMATOCRIT (BEAKER) (test xvga=159) 29.0 % 34.1-44.9 MEAN CORPUSCULAR VOLUME (BEAKER) (test kqrk=370) 96.3 fL 79.4-94.8 MEAN CORPUSCULAR HEMOGLOBIN (BEAKER) (test 29.9 pg 25.6-32.2 oywv=489) MEAN CORPUSCULAR HEMOGLOBIN CONC (BEAKER) (test 31.0 GM/DL 32.2-35.5 tpco=861) RED CELL DISTRIBUTION WIDTH (BEAKER) (test 14.9 % 11.7-14.4 pyzi=782) PLATELET COUNT (BEAKER) (test eylb=366) 187 K/CU MM 150-450 MEAN PLATELET VOLUME (BEAKER) (test fqsm=645) 11.4 fL 9.4-12.3 NUCLEATED RED BLOOD CELLS (BEAKER) (test 0 /100 WBC 0-0 vwil=601) NEUTROPHILS RELATIVE PERCENT (BEAKER) (test 72 % nyso=217) LYMPHOCYTES RELATIVE PERCENT (BEAKER) (test 18 % bnup=028) MONOCYTES RELATIVE PERCENT (BEAKER) (test 8 % jmvv=593) EOSINOPHILS RELATIVE PERCENT (BEAKER) (test 1 % djtc=957) BASOPHILS RELATIVE PERCENT (BEAKER) (test 1 % zsje=274) NEUTROPHILS ABSOLUTE COUNT (BEAKER) (test 4.12 K/ L 1.56-6.13 rxtm=331) LYMPHOCYTES ABSOLUTE COUNT (BEAKER) (test 1.03 K/ L 1.18-3.74 cpmp=583) MONOCYTES ABSOLUTE COUNT (BEAKER) (test 0.43 K/ L 0.24-0.36 zdfi=750) EOSINOPHILS ABSOLUTE COUNT (BEAKER) (test 0.06 K/ L 0.04-0.36 grvc=318) BASOPHILS ABSOLUTE COUNT (BEAKER) (test 0.03 K/ L 0.01-0.08 vgrp=342) IMMATURE GRANULOCYTES-RELATIVE PERCENT (BEAKER) 1 % 0-1 (test wcqr=6353) POCT-GLUCOSE [id number] 05:54:00 Test Item Value Reference Range Comments POC-GLUCOSE METER (BEAKER) 187 mg/dL 70-110 TESTED AT [address] (test wkfb=8924) [facility] [address] POCT-GLUCOSE [id number] 23:25:00 Test Item Value Reference Range Comments POC-GLUCOSE METER (BEAKER) 159 mg/dL 70-110 TESTED AT [address] (test ghrg=4764) [facility] [address] POCT-GLUCOSE [id number] 17:20:00 Test Item Value Reference Range Comments POC-GLUCOSE METER (BEAKER) 105 mg/dL 70-110 TESTED AT [address] (test tpui=9835) [facility] [address] POCT-GLUCOSE [id number] 12:46:00 Test Item Value Reference Range Comments POC-GLUCOSE METER (BEAKER) 170 mg/dL 70-[address] [facility] [address] (test bgjv=1149) [place] [address] CALCIUM, [id number] 07:00:00 Test Item Value Reference Range Comments CALCIUM IONIZED (BEAKER) (test aony=101) 1.06 mmol/L 1.12-1.27 PH, BLOOD (BEAKER) (test jsuv=5919) 7.37 [id number] 06:42:00 Test Item Value Reference Range Comments PHOSPHORUS (BEAKER) (test wgip=726) 3.7 mg/dL 2.3-4.7 [id number] 06:42:00 Test Item Value Reference Range Comments MAGNESIUM (BEAKER) (test vkdl=436) 2.0 mg/dL 1.6-2.6 BASIC METABOLIC [id number] 06:42:00 Test Item Value Reference Range Comments SODIUM (BEAKER) (test 135 meq/L 136-145 bpam=505) POTASSIUM (BEAKER) (test 4.5 meq/L 3.5-5.1 bmeg=702) CHLORIDE (BEAKER) (test 104 meq/L 98-107 kgij=442) CO2 (BEAKER) (test 26 meq/L 22-29 yjxc=517) BLOOD UREA NITROGEN 22 mg/dL 7-21 (BEAKER) (test lpgq=608) CREATININE (BEAKER) (test 0.54 mg/dL 0.57-1.25 msug=831) GLUCOSE RANDOM (BEAKER) 187 mg/dL 70-105 (test sevf=465) CALCIUM (BEAKER) (test 8.6 mg/dL 8.4-10.2 jhmw=745) EGFR (BEAKER) (test 116 mL/min/1.73 sq m ESTIMATED GFR IS NOT uoul=4912) ACCURATE CREATININE CLEARANCE IN PREDICTING GLOMERULAR FILTRATION RATE. ESTIMATED GFR IS NOT APPLICABLE FOR DIALYSIS PATIENTS. PROTHROMBIN [id number] 06:41:00 Test Item Value Reference Range Comments PROTIME (BEAKER) (test fgmu=945) 15.0 seconds 11.7-14.7 INR (BEAKER) (test zxto=380) 1.2 <=5.9 RECOMMENDED COUMADIN/WARFARIN INR THERAPY RANGESSTANDARD DOSE: 2.0 - 3.0 Includes: PROPHYLAXIS forvenous thrombosis, systemic embolization; TREATMENT for venous thrombosis and/or pulmonary embolus.HIGH RISK: Target INR is 2.5-3.5 for patients with mechanical heart valves.CBC W/PLT COUNT & AUTO [id number] 06:29:00 Test Item Value Reference Range Comments WHITE BLOOD CELL COUNT (BEAKER) (test qwwg=597) 5.5 K/ L 3.5-10.5 RED BLOOD CELL COUNT (BEAKER) (test pukn=175) 2.91 M/ L 3.93-5.22 HEMOGLOBIN (BEAKER) (test hhte=025) 8.9 GM/DL 11.2-15.7 HEMATOCRIT (BEAKER) (test fzfm=506) 28.1 % 34.1-44.9 MEAN CORPUSCULAR VOLUME (BEAKER) (test yyrc=217) 96.6 fL 79.4-94.8 MEAN CORPUSCULAR HEMOGLOBIN (BEAKER) (test 30.6 pg 25.6-32.2 qzhz=640) MEAN CORPUSCULAR HEMOGLOBIN CONC (BEAKER) (test 31.7 GM/DL 32.2-35.5 xrzk=319) RED CELL DISTRIBUTION WIDTH (BEAKER) (test 14.7 % 11.7-14.4 alzt=589) PLATELET COUNT (BEAKER) (test uouk=637) 207 K/CU MM 150-450 MEAN PLATELET VOLUME (BEAKER) (test ttgz=953) 10.9 fL 9.4-12.3 NUCLEATED RED BLOOD CELLS (BEAKER) (test 0 /100 WBC 0-0 upql=999) NEUTROPHILS RELATIVE PERCENT (BEAKER) (test 70 % unbb=592) LYMPHOCYTES RELATIVE PERCENT (BEAKER) (test 21 % faft=462) MONOCYTES RELATIVE PERCENT (BEAKER) (test 8 % tpul=409) EOSINOPHILS RELATIVE PERCENT (BEAKER) (test 1 % yeaa=682) BASOPHILS RELATIVE PERCENT (BEAKER) (test 0 % hoql=635) NEUTROPHILS ABSOLUTE COUNT (BEAKER) (test 3.86 K/ L 1.56-6.13 nmmo=248) LYMPHOCYTES ABSOLUTE COUNT (BEAKER) (test 1.13 K/ L 1.18-3.74 dffh=603) MONOCYTES ABSOLUTE COUNT (BEAKER) (test 0.44 K/ L 0.24-0.36 rhxf=760) EOSINOPHILS ABSOLUTE COUNT (BEAKER) (test 0.04 K/ L 0.04-0.36 jlmg=457) BASOPHILS ABSOLUTE COUNT (BEAKER) (test 0.01 K/ L 0.01-0.08 ltoo=263) IMMATURE GRANULOCYTES-RELATIVE PERCENT (BEAKER) 0 % 0-1 (test fmlr=9511) POCT-GLUCOSE [id number] 05:54:00 Test Item Value Reference Range Comments POC-GLUCOSE METER (BEAKER) 204 mg/dL 70-110 TESTED AT [address] (test ifil=6538) [facility] [address] POCT-GLUCOSE [id number] 23:53:00 Test Item Value Reference Range Comments POC-GLUCOSE METER (BEAKER) 157 mg/dL 70-110 TESTED AT [address] (test bnot=1703) [facility] [address] POCT-GLUCOSE [id number] 16:59:00 Test Item Value Reference Range Comments POC-GLUCOSE METER (BEAKER) 190 mg/dL 70-110 TESTED AT [address] (test dezv=0633) [facility] [address] POCT-GLUCOSE [id number] 13:21:00 Test Item Value Reference Range Comments POC-GLUCOSE METER (BEAKER) 166 mg/dL 70-110 TESTED AT [address] (test eudh=4082) [facility] [address] [id number] 07:07:00 Test Item Value Reference Range Comments PHOSPHORUS (BEAKER) (test icni=805) 3.5 mg/dL 2.3-4.7 [id number] 07:07:00 Test Item Value Reference Range Comments MAGNESIUM (BEAKER) (test wltt=667) 1.9 mg/dL 1.6-2.6 BASIC METABOLIC [id number] 07:07:00 Test Item Value Reference Range Comments SODIUM (BEAKER) (test 136 meq/L 136-145 ojdq=187) POTASSIUM (BEAKER) (test 4.4 meq/L 3.5-5.1 ggnm=667) CHLORIDE (BEAKER) (test 103 meq/L 98-107 sdho=342) CO2 (BEAKER) (test 28 meq/L 22-29 bdsz=157) BLOOD UREA NITROGEN 22 mg/dL 7-21 (BEAKER) (test gonm=837) CREATININE (BEAKER) (test 0.51 mg/dL 0.57-1.25 dezj=776) GLUCOSE RANDOM (BEAKER) 163 mg/dL 70-105 (test opjs=889) CALCIUM (BEAKER) (test 8.6 mg/dL 8.4-10.2 tdly=572) EGFR (BEAKER) (test 123 mL/min/1.73 sq m ESTIMATED GFR IS NOT msnq=5843) ACCURATE CREATININE CLEARANCE IN PREDICTING GLOMERULAR FILTRATION RATE. ESTIMATED GFR IS NOT APPLICABLE FOR DIALYSIS PATIENTS. CALCIUM, [id number] 06:57:00 Test Item Value Reference Range Comments CALCIUM IONIZED (BEAKER) (test skgo=909) 1.17 mmol/L 1.12-1.27 PH, BLOOD (BEAKER) (test ycxe=3426) 7.37 PROTHROMBIN [id number] 06:42:00 Test Item Value Reference Range Comments PROTIME (BEAKER) (test ujtq=502) 15.7 seconds 11.7-14.7 INR (BEAKER) (test tetx=440) 1.3 <=5.9 RECOMMENDED COUMADIN/WARFARIN INR THERAPY RANGESSTANDARD DOSE: 2.0 - 3.0 Includes: PROPHYLAXIS forvenous thrombosis, systemic embolization; TREATMENT for venous thrombosis and/or pulmonary embolus.HIGH RISK: Target INR is 2.5-3.5 for patients with mechanical heart valves.CBC W/PLT COUNT & AUTO [id number] 06:42:00 Test Item Value Reference Range Comments WHITE BLOOD CELL COUNT (BEAKER) (test joud=137) 6.0 K/ L 3.5-10.5 RED BLOOD CELL COUNT (BEAKER) (test stza=432) 3.02 M/ L 3.93-5.22 HEMOGLOBIN (BEAKER) (test ciar=888) 9.0 GM/DL 11.2-15.7 HEMATOCRIT (BEAKER) (test hkvr=442) 29.0 % 34.1-44.9 MEAN CORPUSCULAR VOLUME (BEAKER) (test fvcm=622) 96.0 fL 79.4-94.8 MEAN CORPUSCULAR HEMOGLOBIN (BEAKER) (test 29.8 pg 25.6-32.2 qatj=506) MEAN CORPUSCULAR HEMOGLOBIN CONC (BEAKER) (test 31.0 GM/DL 32.2-35.5 leyo=961) RED CELL DISTRIBUTION WIDTH (BEAKER) (test 14.7 % 11.7-14.4 evpw=560) PLATELET COUNT (BEAKER) (test exnj=321) 232 K/CU MM 150-450 MEAN PLATELET VOLUME (BEAKER) (test leiw=603) 10.7 fL 9.4-12.3 NUCLEATED RED BLOOD CELLS (BEAKER) (test 0 /100 WBC 0-0 nrzb=551) NEUTROPHILS RELATIVE PERCENT (BEAKER) (test 75 % ynue=418) LYMPHOCYTES RELATIVE PERCENT (BEAKER) (test 18 % eghh=080) MONOCYTES RELATIVE PERCENT (BEAKER) (test 7 % hvaw=438) EOSINOPHILS RELATIVE PERCENT (BEAKER) (test 0 % wrdj=463) BASOPHILS RELATIVE PERCENT (BEAKER) (test 0 % qshl=333) NEUTROPHILS ABSOLUTE COUNT (BEAKER) (test 4.50 K/ L 1.56-6.13 sohd=272) LYMPHOCYTES ABSOLUTE COUNT (BEAKER) (test 1.07 K/ L 1.18-3.74 hoiv=596) MONOCYTES ABSOLUTE COUNT (BEAKER) (test 0.39 K/ L 0.24-0.36 bhin=776) EOSINOPHILS ABSOLUTE COUNT (BEAKER) (test 0.02 K/ L 0.04-0.36 ooyu=250) BASOPHILS ABSOLUTE COUNT (BEAKER) (test 0.02 K/ L 0.01-0.08 oenq=440) IMMATURE GRANULOCYTES-RELATIVE PERCENT (BEAKER) 1 % 0-1 (test ejad=0221) POCT-GLUCOSE [id number] 05:35:00 Test Item Value Reference Range Comments POC-GLUCOSE METER (BEAKER) 174 mg/dL 70-110 TESTED AT [address] (test rbsi=6143) [facility] [address] POCT-GLUCOSE [id number] 23:09:00 Test Item Value Reference Range Comments POC-GLUCOSE METER (BEAKER) 146 mg/dL 70-110 TESTED AT [address] (test yeyf=8141) [place] [id number] POCT-GLUCOSE [id number] 18:00:00 Test Item Value Reference Range Comments POC-GLUCOSE METER (BEAKER) 100 mg/dL 70-110 TESTED AT [address] (test uudi=8776) [facility] [address] BODY FLUID CULTURE + GRAM [id number] 16:54:00 Test Item Value Reference Range Comments CULTURE (BEAKER) (test opwj=7614) Amikacin (test code=1) Aztreonam (test code=32) Cefepime (test code=51) Ceftazidime (test code=27) Ciprofloxacin (test code=7) Doripenem (test ugkd=856) Gentamicin (test code=18) Imipenem (test code=19) Levofloxacin (test code=22) Meropenem (test code=34) Piperacillin (test code=24) Piperacillin + Tazobactam (test code=29) Tobramycin (test code=25) CULTURE (BEAKER) (test 4+ Pseudomonas ncro=9564) aeruginosa (Mucoid-phenotype)mu coid colony type CULTURE (BEAKER) (test 4+ Pseudomonas ubxo=2204) aeruginosa (Mucoid-phenotype) GRAM STAIN RESULT <1+ WBCs (BEAKER) (test thcr=6006) GRAM STAIN RESULT 1+ gram negative (BEAKER) (test rods xzhy=838101) GRAM STAIN RESULT 2+ yeast (BEAKER) (test rhbo=835967) CULTURE (BEAKER) (test MARAYNNE PARAPSILOSIS 1+ Maryanne rswo=7020) parapsilosis 5-Flurocytosine (test sujc=006) Caspofungin acetate (test ttwo=018) Fluconazole (test yeqf=818) Itraconazole (test ikma=406) Micafungin (test daiw=194) Voriconazole (test krwx=164) Amphotericin B (test Susceptible >0-0 , No dpnb=194) Interpretations Established <=0 or >0 Posaconazole (test Susceptible >0-0 , No fhqs=885) Interpretations Established <=0 or >0 GRAM STAIN RESULT 1+ gram negative (BEAKER) (test rods xkpz=092240) GRAM STAIN RESULT 2+ yeast (BEAKER) (test dwhd=405150) POCT-GLUCOSE [id number] 13:32:00 Test Item Value Reference Range Comments POC-GLUCOSE METER (BEAKER) 191 mg/dL 70-[address] [facility] [address] [place] [address] (test uato=4592) [facility] [address] POCT-GLUCOSE [id number] 06:53:00 Test Item Value Reference Range Comments POC-GLUCOSE METER (BEAKER) 157 mg/dL 70-[address] [facility] [address] (test mxnf=4917) [place] [address] CALCIUM, [id number] 05:32:00 Test Item Value Reference Range Comments CALCIUM IONIZED (BEAKER) (test vmse=283) 1.09 mmol/L 1.12-1.27 PH, BLOOD (BEAKER) (test plwk=4576) 7.35 PROTHROMBIN [id number] 05:06:00 Test Item Value Reference Range Comments PROTIME (BEAKER) (test rqzw=066) 15.1 seconds 11.7-14.7 INR (BEAKER) (test bbcv=880) 1.2 <=5.9 RECOMMENDED COUMADIN/WARFARIN INR THERAPY RANGESSTANDARD DOSE: 2.0 - 3.0 Includes: PROPHYLAXIS forvenous thrombosis, systemic embolization; TREATMENT for venous thrombosis and/or pulmonary embolus.HIGH RISK: Target INR is 2.5-3.5 for patients with mechanical heart valves.[id number] 05:00:00 Test Item Value Reference Range Comments PHOSPHORUS (BEAKER) (test vxwe=206) 3.5 mg/dL 2.3-4.7 [id number] 05:00:00 Test Item Value Reference Range Comments MAGNESIUM (BEAKER) (test mdny=073) 2.0 mg/dL 1.6-2.6 BASIC METABOLIC [id number] 05:00:00 Test Item Value Reference Range Comments SODIUM (BEAKER) (test 137 meq/L 136-145 uzxx=469) POTASSIUM (BEAKER) (test 4.6 meq/L 3.5-5.1 wpcz=447) CHLORIDE (BEAKER) (test 104 meq/L 98-107 ccnb=174) CO2 (BEAKER) (test 27 meq/L 22-29 arwt=835) BLOOD UREA NITROGEN 22 mg/dL 7-21 (BEAKER) (test wzyt=407) CREATININE (BEAKER) (test 0.51 mg/dL 0.57-1.25 ltok=028) GLUCOSE RANDOM (BEAKER) 157 mg/dL 70-105 (test hpoa=378) CALCIUM (BEAKER) (test 8.6 mg/dL 8.4-10.2 cmsd=802) EGFR (BEAKER) (test 123 mL/min/1.73 sq m ESTIMATED GFR IS NOT xpln=3373) ACCURATE CREATININE CLEARANCE IN PREDICTING GLOMERULAR FILTRATION RATE. ESTIMATED GFR IS NOT APPLICABLE FOR DIALYSIS PATIENTS. CBC W/PLT COUNT & AUTO [id number] 04:37:00 Test Item Value Reference Range Comments WHITE BLOOD CELL COUNT (BEAKER) (test qutr=223) 6.7 K/ L 3.5-10.5 RED BLOOD CELL COUNT (BEAKER) (test yvla=994) 2.80 M/ L 3.93-5.22 HEMOGLOBIN (BEAKER) (test mikk=043) 8.6 GM/DL 11.2-15.7 HEMATOCRIT (BEAKER) (test uhiy=416) 26.9 % 34.1-44.9 MEAN CORPUSCULAR VOLUME (BEAKER) (test jlti=179) 96.1 fL 79.4-94.8 MEAN CORPUSCULAR HEMOGLOBIN (BEAKER) (test 30.7 pg 25.6-32.2 xcnv=047) MEAN CORPUSCULAR HEMOGLOBIN CONC (BEAKER) (test 32.0 GM/DL 32.2-35.5 gfpt=565) RED CELL DISTRIBUTION WIDTH (BEAKER) (test 14.5 % 11.7-14.4 eqfx=720) PLATELET COUNT (BEAKER) (test yfpg=479) 242 K/CU MM 150-450 MEAN PLATELET VOLUME (BEAKER) (test ykqw=530) 10.3 fL 9.4-12.3 NUCLEATED RED BLOOD CELLS (BEAKER) (test 0 /100 WBC 0-0 fmwg=053) NEUTROPHILS RELATIVE PERCENT (BEAKER) (test 78 % btov=686) LYMPHOCYTES RELATIVE PERCENT (BEAKER) (test 14 % sqhf=513) MONOCYTES RELATIVE PERCENT (BEAKER) (test 8 % ykhb=189) EOSINOPHILS RELATIVE PERCENT (BEAKER) (test 0 % nitd=047) BASOPHILS RELATIVE PERCENT (BEAKER) (test 0 % uepi=478) NEUTROPHILS ABSOLUTE COUNT (BEAKER) (test 5.17 K/ L 1.56-6.13 flxk=339) LYMPHOCYTES ABSOLUTE COUNT (BEAKER) (test 0.90 K/ L 1.18-3.74 bpmh=887) MONOCYTES ABSOLUTE COUNT (BEAKER) (test 0.52 K/ L 0.24-0.36 nnkv=387) EOSINOPHILS ABSOLUTE COUNT (BEAKER) (test 0.02 K/ L 0.04-0.36 mgns=665) BASOPHILS ABSOLUTE COUNT (BEAKER) (test 0.01 K/ L 0.01-0.08 fnwo=910) IMMATURE GRANULOCYTES-RELATIVE PERCENT (BEAKER) 1 % 0-1 (test uzjy=0530) POCT-GLUCOSE [id number] 00:57:00 Test Item Value Reference Range Comments POC-GLUCOSE METER (BEAKER) 141 mg/dL 70-110 TESTED AT [address] (test mena=6993) [place] [id number] POCT-GLUCOSE [id number] 16:52:00 Test Item Value Reference Range Comments POC-GLUCOSE METER (BEAKER) 186 mg/dL 70-110 TESTED AT [address] (test huzo=8634) [place] [address] POCT-GLUCOSE [id number] 11:22:00 Test Item Value Reference Range Comments POC-GLUCOSE METER (BEAKER) 141 mg/dL 70-110 TESTED AT [address] (test bcrd=9925) [place] [address] [id number] 06:45:00 Test Item Value Reference Range Comments TRIGLYCERIDES (BEAKER) (test svgm=552) 193 mg/dL TRIGLYCERIDE REFERENCE RANGELow Risk <150Borderline Risk 150-199High Risk 200-499Very High Risk>=[id number] 06:45:00 Test Item Value Reference Range Comments MAGNESIUM (BEAKER) (test mybm=828) 1.9 mg/dL 1.6-2.6 [id number] 06:45:00 Test Item Value Reference Range Comments PHOSPHORUS (BEAKER) (test ayig=692) 3.7 mg/dL 2.3-4.7 BASIC METABOLIC [id number] 06:45:00 Test Item Value Reference Range Comments SODIUM (BEAKER) (test 137 meq/L 136-145 bbga=380) POTASSIUM (BEAKER) (test 4.7 meq/L 3.5-5.1 qzve=518) CHLORIDE (BEAKER) (test 104 meq/L 98-107 alzl=498) CO2 (BEAKER) (test 27 meq/L 22-29 kble=743) BLOOD UREA NITROGEN 23 mg/dL 7-21 (BEAKER) (test rwyi=875) CREATININE (BEAKER) (test 0.51 mg/dL 0.57-1.25 pqnq=636) GLUCOSE RANDOM (BEAKER) 171 mg/dL 70-105 (test vddt=816) CALCIUM (BEAKER) (test 8.4 mg/dL 8.4-10.2 gfoq=498) EGFR (BEAKER) (test 123 mL/min/1.73 sq m ESTIMATED GFR IS NOT nsil=2715) ACCURATE CREATININE CLEARANCE IN PREDICTING GLOMERULAR FILTRATION RATE. ESTIMATED GFR IS NOT APPLICABLE FOR DIALYSIS PATIENTS. CBC W/PLT COUNT & AUTO [id number] 06:14:00 Test Item Value Reference Range Comments WHITE BLOOD CELL COUNT (BEAKER) (test pbxr=292) 7.6 K/ L 3.5-10.5 RED BLOOD CELL COUNT (BEAKER) (test oqqa=817) 2.82 M/ L 3.93-5.22 HEMOGLOBIN (BEAKER) (test ygih=809) 8.5 GM/DL 11.2-15.7 HEMATOCRIT (BEAKER) (test jyot=717) 27.3 % 34.1-44.9 MEAN CORPUSCULAR VOLUME (BEAKER) (test pquk=645) 96.8 fL 79.4-94.8 MEAN CORPUSCULAR HEMOGLOBIN (BEAKER) (test 30.1 pg 25.6-32.2 vuwi=480) MEAN CORPUSCULAR HEMOGLOBIN CONC (BEAKER) (test 31.1 GM/DL 32.2-35.5 ejny=187) RED CELL DISTRIBUTION WIDTH (BEAKER) (test 14.5 % 11.7-14.4 dgwd=419) PLATELET COUNT (BEAKER) (test ywmz=221) 282 K/CU MM 150-450 MEAN PLATELET VOLUME (BEAKER) (test ppzd=969) 10.5 fL 9.4-12.3 NUCLEATED RED BLOOD CELLS (BEAKER) (test 0 /100 WBC 0-0 tdbe=635) NEUTROPHILS RELATIVE PERCENT (BEAKER) (test 82 % fniv=401) LYMPHOCYTES RELATIVE PERCENT (BEAKER) (test 10 % buek=196) MONOCYTES RELATIVE PERCENT (BEAKER) (test 7 % lprm=997) EOSINOPHILS RELATIVE PERCENT (BEAKER) (test 0 % fori=934) BASOPHILS RELATIVE PERCENT (BEAKER) (test 0 % hqxf=103) NEUTROPHILS ABSOLUTE COUNT (BEAKER) (test 6.24 K/ L 1.56-6.13 fptd=520) LYMPHOCYTES ABSOLUTE COUNT (BEAKER) (test 0.79 K/ L 1.18-3.74 nagx=303) MONOCYTES ABSOLUTE COUNT (BEAKER) (test 0.52 K/ L 0.24-0.36 hold=631) EOSINOPHILS ABSOLUTE COUNT (BEAKER) (test 0.01 K/ L 0.04-0.36 vdth=047) BASOPHILS ABSOLUTE COUNT (BEAKER) (test 0.02 K/ L 0.01-0.08 wzxt=987) IMMATURE GRANULOCYTES-RELATIVE PERCENT (BEAKER) 0 % 0-1 (test jjdm=4090) PROTHROMBIN [id number] 06:13:00 Test Item Value Reference Range Comments PROTIME (BEAKER) (test sswy=704) 16.2 seconds 11.7-14.7 INR (BEAKER) (test gezw=443) 1.3 <=5.9 RECOMMENDED COUMADIN/WARFARIN INR THERAPY RANGESSTANDARD DOSE: 2.0 - 3.0 Includes: PROPHYLAXIS forvenous thrombosis, systemic embolization; TREATMENT for venous thrombosis and/or pulmonary embolus.HIGH RISK: Target INR is 2.5-3.5 for patients with mechanical heart valves.POCT-GLUCOSE [id number] 05:59:00 Test Item Value Reference Range Comments POC-GLUCOSE METER (BEAKER) 180 mg/dL 70-110 TESTED AT [address] (test kbpk=0307) [facility] [address] CALCIUM, [id number] 05:57:00 Test Item Value Reference Range Comments CALCIUM IONIZED (BEAKER) (test ycsf=077) 1.18 mmol/L 1.12-1.27 PH, BLOOD (BEAKER) (test dqan=2055) 7.38 POCT-GLUCOSE [id number] 22:36:00 Test Item Value Reference Range Comments POC-GLUCOSE METER (BEAKER) 119 mg/dL 70-110 TESTED AT [address] (test mdch=0588) [facility] [address] POCT-GLUCOSE [id number] 16:57:00 Test Item Value Reference Range Comments POC-GLUCOSE METER (BEAKER) 141 mg/dL 70-110 TESTED AT [address] (test ihnq=1540) [facility] [address] POCT-GLUCOSE [id number] 11:28:00 Test Item Value Reference Range Comments POC-GLUCOSE METER (BEAKER) 140 mg/dL 70-110 TESTED AT [address] (test cjbb=1855) [facility] [address] POCT-GLUCOSE [id number] 07:47:00 Test Item Value Reference Range Comments POC-GLUCOSE METER (BEAKER) 141 mg/dL 70-110 TESTED AT [address] (test ilur=8386) [facility] [address] POCT-GLUCOSE [id number] 06:10:00 Test Item Value Reference Range Comments POC-GLUCOSE METER (BEAKER) 222 mg/dL 70-110 TESTED AT [address] (test pcyj=9426) [facility] [address] [id number] 06:01:00 Test Item Value Reference Range Comments PHOSPHORUS (BEAKER) (test lfpg=067) 3.3 mg/dL 2.3-4.7 [id number] 06:01:00 Test Item Value Reference Range Comments MAGNESIUM (BEAKER) (test ttkx=293) 2.1 mg/dL 1.6-2.6 BASIC METABOLIC [id number] 06:01:00 Test Item Value Reference Range Comments SODIUM (BEAKER) (test 136 meq/L 136-145 uzba=965) POTASSIUM (BEAKER) (test 4.7 meq/L 3.5-5.1 jplp=115) CHLORIDE (BEAKER) (test 103 meq/L 98-107 aovc=600) CO2 (BEAKER) (test 26 meq/L 22-29 pibp=737) BLOOD UREA NITROGEN 23 mg/dL 7-21 (BEAKER) (test dsrf=802) CREATININE (BEAKER) (test 0.54 mg/dL 0.57-1.25 sgye=149) GLUCOSE RANDOM (BEAKER) 199 mg/dL 70-105 (test qkxg=311) CALCIUM (BEAKER) (test 8.6 mg/dL 8.4-10.2 lpzp=882) EGFR (BEAKER) (test 116 mL/min/1.73 sq m ESTIMATED GFR IS NOT zlob=2444) ACCURATE CREATININE CLEARANCE IN PREDICTING GLOMERULAR FILTRATION RATE. ESTIMATED GFR IS NOT APPLICABLE FOR DIALYSIS PATIENTS. PROTHROMBIN [id number] 05:55:00 Test Item Value Reference Range Comments PROTIME (BEAKER) (test qcap=140) 14.9 seconds 11.7-14.7 INR (BEAKER) (test bwwl=098) 1.2 <=5.9 RECOMMENDED COUMADIN/WARFARIN INR THERAPY RANGESSTANDARD DOSE: 2.0 - 3.0 Includes: PROPHYLAXIS forvenous thrombosis, systemic embolization; TREATMENT for venous thrombosis and/or pulmonary embolus.HIGH RISK: Target INR is 2.5-3.5 for patients with mechanical heart valves.CBC W/PLT COUNT & AUTO [id number] 05:45:00 Test Item Value Reference Range Comments WHITE BLOOD CELL COUNT (BEAKER) (test ehge=266) 9.7 K/ L 3.5-10.5 RED BLOOD CELL COUNT (BEAKER) (test oxvt=558) 3.05 M/ L 3.93-5.22 HEMOGLOBIN (BEAKER) (test nfyt=158) 9.1 GM/DL 11.2-15.7 HEMATOCRIT (BEAKER) (test pabf=892) 29.2 % 34.1-44.9 MEAN CORPUSCULAR VOLUME (BEAKER) (test dodc=072) 95.7 fL 79.4-94.8 MEAN CORPUSCULAR HEMOGLOBIN (BEAKER) (test 29.8 pg 25.6-32.2 cvyn=736) MEAN CORPUSCULAR HEMOGLOBIN CONC (BEAKER) (test 31.2 GM/DL 32.2-35.5 ivsj=846) RED CELL DISTRIBUTION WIDTH (BEAKER) (test 14.4 % 11.7-14.4 ymgr=298) PLATELET COUNT (BEAKER) (test msas=102) 318 K/CU MM 150-450 MEAN PLATELET VOLUME (BEAKER) (test zibx=749) 10.5 fL 9.4-12.3 NUCLEATED RED BLOOD CELLS (BEAKER) (test 0 /100 WBC 0-0 nhor=508) NEUTROPHILS RELATIVE PERCENT (BEAKER) (test 85 % hnyi=002) LYMPHOCYTES RELATIVE PERCENT (BEAKER) (test 8 % zsxt=098) MONOCYTES RELATIVE PERCENT (BEAKER) (test 6 % ykee=193) EOSINOPHILS RELATIVE PERCENT (BEAKER) (test 0 % ynzy=204) BASOPHILS RELATIVE PERCENT (BEAKER) (test 0 % heid=900) NEUTROPHILS ABSOLUTE COUNT (BEAKER) (test 8.22 K/ L 1.56-6.13 yfdh=943) LYMPHOCYTES ABSOLUTE COUNT (BEAKER) (test 0.81 K/ L 1.18-3.74 jyzq=388) MONOCYTES ABSOLUTE COUNT (BEAKER) (test 0.60 K/ L 0.24-0.36 dqxd=720) EOSINOPHILS ABSOLUTE COUNT (BEAKER) (test 0.00 K/ L 0.04-0.36 mahq=163) BASOPHILS ABSOLUTE COUNT (BEAKER) (test 0.01 K/ L 0.01-0.08 qacn=391) IMMATURE GRANULOCYTES-RELATIVE PERCENT (BEAKER) 0 % 0-1 (test fjmn=2688) CALCIUM, [id number] 05:33:00 Test Item Value Reference Range Comments CALCIUM IONIZED (BEAKER) (test msei=618) 1.10 mmol/L 1.12-1.27 PH, BLOOD (BEAKER) (test zlat=8920) 7.43 ANAEROBIC [id number] 04:49:00 Test Item Value Reference Range Comments CULTURE (BEAKER) (test hopl=8754) <1+ Lactobacillus rhamnosus NO Anaerobes IsolatedPOCT-GLUCOSE [id number] 23:46:00 Test Item Value Reference Range Comments POC-GLUCOSE METER (BEAKER) 134 mg/dL 70-110 TESTED AT [address] (test djjv=0517) [place] [address] [id number] 19:05:00 Test Item Value Reference Range Comments POTASSIUM (BEAKER) (test kwjc=037) 5.4 meq/L 3.5-5.1 POCT-GLUCOSE [id number] 16:47:00 Test Item Value Reference Range Comments POC-GLUCOSE METER (BEAKER) 172 mg/dL 70-110 TESTED AT [address] (test mgfr=4345) [place] [id number] POCT-GLUCOSE [id number] 12:08:00 Test Item Value Reference Range Comments POC-GLUCOSE METER (BEAKER) 173 mg/dL 70-110 TESTED AT [address] (test biqc=9735) [place] [address] CBC W/PLT COUNT & AUTO [id number] 05:19:00 Test Item Value Reference Range Comments WHITE BLOOD CELL COUNT (BEAKER) (test dzfe=880) 11.8 K/ L 3.5-10.5 RED BLOOD CELL COUNT (BEAKER) (test jssw=932) 3.02 M/ L 3.93-5.22 HEMOGLOBIN (BEAKER) (test ktla=422) 9.2 GM/DL 11.2-15.7 HEMATOCRIT (BEAKER) (test ietd=454) 29.0 % 34.1-44.9 MEAN CORPUSCULAR VOLUME (BEAKER) (test tldp=686) 96.0 fL 79.4-94.8 MEAN CORPUSCULAR HEMOGLOBIN (BEAKER) (test 30.5 pg 25.6-32.2 piqw=002) MEAN CORPUSCULAR HEMOGLOBIN CONC (BEAKER) (test 31.7 GM/DL 32.2-35.5 rbhu=755) RED CELL DISTRIBUTION WIDTH (BEAKER) (test 14.4 % 11.7-14.4 dngz=430) PLATELET COUNT (BEAKER) (test swgl=335) 337 K/CU MM 150-450 MEAN PLATELET VOLUME (BEAKER) (test ufqs=656) 10.7 fL 9.4-12.3 NUCLEATED RED BLOOD CELLS (BEAKER) (test 0 /100 WBC 0-0 iidd=686) NEUTROPHILS RELATIVE PERCENT (BEAKER) (test 92 % bowa=323) LYMPHOCYTES RELATIVE PERCENT (BEAKER) (test 5 % hsgb=524) MONOCYTES RELATIVE PERCENT (BEAKER) (test 3 % xkee=313) EOSINOPHILS RELATIVE PERCENT (BEAKER) (test 0 % lawc=456) BASOPHILS RELATIVE PERCENT (BEAKER) (test 0 % iogj=888) NEUTROPHILS ABSOLUTE COUNT (BEAKER) (test 10.91 K/ L 1.56-6.13 jrlw=834) LYMPHOCYTES ABSOLUTE COUNT (BEAKER) (test 0.55 K/ L 1.18-3.74 szsb=105) MONOCYTES ABSOLUTE COUNT (BEAKER) (test 0.30 K/ L 0.24-0.36 kjei=159) EOSINOPHILS ABSOLUTE COUNT (BEAKER) (test 0.00 K/ L 0.04-0.36 tumf=925) BASOPHILS ABSOLUTE COUNT (BEAKER) (test 0.01 K/ L 0.01-0.08 fnhu=605) IMMATURE GRANULOCYTES-RELATIVE PERCENT (BEAKER) 1 % 0-1 (test ewip=3791) CALCIUM, [id number] 05:19:00 Test Item Value Reference Range Comments CALCIUM IONIZED (BEAKER) (test ethd=697) 1.08 mmol/L 1.12-1.27 PH, BLOOD (BEAKER) (test uxdf=4599) 7.41 POCT-GLUCOSE [id number] 05:08:00 Test Item Value Reference Range Comments POC-GLUCOSE METER (BEAKER) 237 mg/dL 70-[address] [facility] [address] [facility] (test zyna=4977) [facility] [address] [id number] 05:04:00 Test Item Value Reference Range Comments PHOSPHORUS (BEAKER) (test fmcw=485) 3.2 mg/dL 2.3-4.7 [id number] 05:04:00 Test Item Value Reference Range Comments MAGNESIUM (BEAKER) (test pdvc=393) 2.0 mg/dL 1.6-2.6 BASIC METABOLIC [id number] 05:04:00 Test Item Value Reference Range Comments SODIUM (BEAKER) (test 133 meq/L 136-145 zkyv=933) POTASSIUM (BEAKER) (test 5.5 meq/L 3.5-5.1 pmfw=742) CHLORIDE (BEAKER) (test 100 meq/L 98-107 yyps=395) CO2 (BEAKER) (test 27 meq/L 22-29 ekwh=854) BLOOD UREA NITROGEN 25 mg/dL 7-21 (BEAKER) (test icji=139) CREATININE (BEAKER) (test 0.55 mg/dL 0.57-1.25 zrae=764) GLUCOSE RANDOM (BEAKER) 173 mg/dL 70-105 (test ollb=432) CALCIUM (BEAKER) (test 8.4 mg/dL 8.4-10.2 jpdw=476) EGFR (BEAKER) (test 113 mL/min/1.73 sq m ESTIMATED GFR IS NOT vwfb=5597) ACCURATE CREATININE CLEARANCE IN PREDICTING GLOMERULAR FILTRATION RATE. ESTIMATED GFR IS NOT APPLICABLE FOR DIALYSIS PATIENTS. PROTHROMBIN [id number] 05:03:00 Test Item Value Reference Range Comments PROTIME (BEAKER) (test vwee=085) 15.4 seconds 11.7-14.7 INR (BEAKER) (test qdpb=877) 1.2 <=5.9 RECOMMENDED COUMADIN/WARFARIN INR THERAPY RANGESSTANDARD DOSE: 2.0 - 3.0 Includes: PROPHYLAXIS forvenous thrombosis, systemic embolization; TREATMENT for venous thrombosis and/or pulmonary embolus.HIGH RISK: Target INR is 2.5-3.5 for patients with mechanical heart valves.POCT-GLUCOSE [id number] 23:13:00 Test Item Value Reference Range Comments POC-GLUCOSE METER (BEAKER) 140 mg/dL 70-110 TESTED AT [address] (test aqqq=6862) [facility] [address] POCT-GLUCOSE [id number] 16:46:00 Test Item Value Reference Range Comments POC-GLUCOSE METER (BEAKER) 252 mg/dL 70-110 TESTED AT [address] (test jwsp=0957) [facility] [address] POCT-GLUCOSE [id number] 11:42:00 Test Item Value Reference Range Comments POC-GLUCOSE METER (BEAKER) 191 mg/dL 70-110 TESTED AT [address] (test owkp=6486) [facility] [address] POCT-GLUCOSE [id number] 07:46:00 Test Item Value Reference Range Comments POC-GLUCOSE METER (BEAKER) 119 mg/dL 70-110 TESTED AT [address] (test zsgi=4798) [facility] [address] [id number] 05:40:00 Test Item Value Reference Range Comments PHOSPHORUS (BEAKER) (test gkfd=186) 2.7 mg/dL 2.3-4.7 [id number] 05:40:00 Test Item Value Reference Range Comments MAGNESIUM (BEAKER) (test nyup=048) 1.9 mg/dL 1.6-2.6 BASIC METABOLIC [id number] 05:40:00 Test Item Value Reference Range Comments SODIUM (BEAKER) (test 137 meq/L 136-145 vmmq=589) POTASSIUM (BEAKER) (test 4.4 meq/L 3.5-5.1 dtgb=366) CHLORIDE (BEAKER) (test 103 meq/L 98-107 sjjr=897) CO2 (BEAKER) (test 28 meq/L 22-29 ofss=040) BLOOD UREA NITROGEN 23 mg/dL 7-21 (BEAKER) (test rkll=096) CREATININE (BEAKER) (test 0.48 mg/dL 0.57-1.25 fjeq=223) GLUCOSE RANDOM (BEAKER) 106 mg/dL 70-105 (test noot=066) CALCIUM (BEAKER) (test 8.1 mg/dL 8.4-10.2 cojt=014) EGFR (BEAKER) (test 132 mL/min/1.73 sq m ESTIMATED GFR IS NOT siaj=8931) ACCURATE CREATININE CLEARANCE IN PREDICTING GLOMERULAR FILTRATION RATE. ESTIMATED GFR IS NOT APPLICABLE FOR DIALYSIS PATIENTS. POCT-GLUCOSE [id number] 05:26:00 Test Item Value Reference Range Comments POC-GLUCOSE METER (BEAKER) 154 mg/dL 70-[address] [facility] [address] [facility] (test wsld=9504) [facility] [address] CALCIUM, [id number] 04:52:00 Test Item Value Reference Range Comments CALCIUM IONIZED (BEAKER) (test cyfd=942) 1.10 mmol/L 1.12-1.27 PH, BLOOD (BEAKER) (test ianl=4627) 7.42 CBC W/PLT COUNT & AUTO [id number] 04:48:00 Test Item Value Reference Range Comments WHITE BLOOD CELL COUNT (BEAKER) (test kkcn=460) 9.9 K/ L 3.5-10.5 RED BLOOD CELL COUNT (BEAKER) (test liay=524) 2.94 M/ L 3.93-5.22 HEMOGLOBIN (BEAKER) (test aulc=026) 8.7 GM/DL 11.2-15.7 HEMATOCRIT (BEAKER) (test pylf=550) 28.1 % 34.1-44.9 MEAN CORPUSCULAR VOLUME (BEAKER) (test dekz=200) 95.6 fL 79.4-94.8 MEAN CORPUSCULAR HEMOGLOBIN (BEAKER) (test 29.6 pg 25.6-32.2 hpki=368) MEAN CORPUSCULAR HEMOGLOBIN CONC (BEAKER) (test 31.0 GM/DL 32.2-35.5 dfhx=983) RED CELL DISTRIBUTION WIDTH (BEAKER) (test 14.2 % 11.7-14.4 czfm=139) PLATELET COUNT (BEAKER) (test xpxn=943) 350 K/CU MM 150-450 MEAN PLATELET VOLUME (BEAKER) (test awnx=131) 10.6 fL 9.4-12.3 NUCLEATED RED BLOOD CELLS (BEAKER) (test 0 /100 WBC 0-0 dmvh=670) NEUTROPHILS RELATIVE PERCENT (BEAKER) (test 78 % scli=461) LYMPHOCYTES RELATIVE PERCENT (BEAKER) (test 12 % xamq=978) MONOCYTES RELATIVE PERCENT (BEAKER) (test 10 % kjmb=683) EOSINOPHILS RELATIVE PERCENT (BEAKER) (test 0 % ship=003) BASOPHILS RELATIVE PERCENT (BEAKER) (test 0 % nqrz=997) NEUTROPHILS ABSOLUTE COUNT (BEAKER) (test 7.69 K/ L 1.56-6.13 wwpk=670) LYMPHOCYTES ABSOLUTE COUNT (BEAKER) (test 1.16 K/ L 1.18-3.74 hrtk=688) MONOCYTES ABSOLUTE COUNT (BEAKER) (test 0.97 K/ L 0.24-0.36 onnd=295) EOSINOPHILS ABSOLUTE COUNT (BEAKER) (test 0.02 K/ L 0.04-0.36 grei=947) BASOPHILS ABSOLUTE COUNT (BEAKER) (test 0.02 K/ L 0.01-0.08 iovn=228) IMMATURE GRANULOCYTES-RELATIVE PERCENT (BEAKER) 1 % 0-1 (test blfv=1266) POCT-GLUCOSE [id number] 23:21:00 Test Item Value Reference Range Comments POC-GLUCOSE METER (BEAKER) 154 mg/dL 70-110 TESTED AT [address] (test ysbj=6619) [place] [id number] VANCOMYCIN LEVEL, [id number] 19:56:00 Test Item Value Reference Range Comments VANCOMYCIN TROUGH (BEAKER) (test vrfg=811) 14.9 ug/mL 10.0-20.0 Before vanc dosePOCT-GLUCOSE [id number] 16:43:00 Test Item Value Reference Range Comments POC-GLUCOSE METER (BEAKER) 182 mg/dL 70-110 TESTED AT [address] (test xwce=5782) [place] [id number] POCT-GLUCOSE [id number] 12:09:00 Test Item Value Reference Range Comments POC-GLUCOSE METER (BEAKER) 163 mg/dL 70-110 TESTED AT [address] (test tkqy=3171) [facility] [address] POCT-GLUCOSE [id number] 05:48:00 Test Item Value Reference Range Comments POC-GLUCOSE METER (BEAKER) 144 mg/dL 70-[address] [facility] [address] [facility] (test tzbh=7915) [facility] [address] BASIC METABOLIC [id number] 03:50:00 Test Item Value Reference Range Comments SODIUM (BEAKER) (test 133 meq/L 136-145 ndae=990) POTASSIUM (BEAKER) (test 4.5 meq/L 3.5-5.1 igtm=801) CHLORIDE (BEAKER) (test 99 meq/L 98-107 jgqe=315) CO2 (BEAKER) (test 27 meq/L 22-29 bvkw=133) BLOOD UREA NITROGEN 23 mg/dL 7-21 (BEAKER) (test nfvz=567) CREATININE (BEAKER) (test 0.48 mg/dL 0.57-1.25 ljdj=767) GLUCOSE RANDOM (BEAKER) 90 mg/dL 70-105 (test mpqx=271) CALCIUM (BEAKER) (test 8.2 mg/dL 8.4-10.2 ormn=338) EGFR (BEAKER) (test 132 mL/min/1.73 sq m ESTIMATED GFR IS NOT knrl=8636) ACCURATE CREATININE CLEARANCE IN PREDICTING GLOMERULAR FILTRATION RATE. ESTIMATED GFR IS NOT APPLICABLE FOR DIALYSIS PATIENTS. HEPATIC FUNCTION [id number] 03:50:00 Test Item Value Reference Range Comments TOTAL PROTEIN (BEAKER) (test uaiy=354) 5.7 gm/dL 6.0-8.3 ALBUMIN (BEAKER) (test wzeq=2725) 2.6 g/dL 3.5-5.0 BILIRUBIN TOTAL (BEAKER) (test yyme=107) 0.6 mg/dL 0.2-1.2 BILIRUBIN DIRECT (BEAKER) (test moix=098) 0.4 mg/dL 0.1-0.5 ALKALINE PHOSPHATASE (BEAKER) (test bvtf=472) 83 U/L 40-150 AST (SGOT) (BEAKER) (test iyep=285) 16 U/L 5-34 ALT (SGPT) (BEAKER) (test nzlc=360) 19 U/L 6-55 [id number] 03:49:00 Test Item Value Reference Range Comments PHOSPHORUS (BEAKER) (test fqpl=204) 2.6 mg/dL 2.3-4.7 [id number] 03:49:00 Test Item Value Reference Range Comments MAGNESIUM (BEAKER) (test rrns=017) 2.0 mg/dL 1.6-2.6 CALCIUM, [id number] 03:28:00 Test Item Value Reference Range Comments CALCIUM IONIZED (BEAKER) (test qsen=855) 1.08 mmol/L 1.12-1.27 PH, BLOOD (BEAKER) (test dwmx=0615) 7.47 CBC W/PLT COUNT & AUTO [id number] 03:14:00 Test Item Value Reference Range Comments WHITE BLOOD CELL COUNT (BEAKER) (test frdt=036) 11.4 K/ L 3.5-10.5 RED BLOOD CELL COUNT (BEAKER) (test dwux=365) 2.91 M/ L 3.93-5.22 HEMOGLOBIN (BEAKER) (test vbux=037) 8.8 GM/DL 11.2-15.7 HEMATOCRIT (BEAKER) (test ilak=770) 27.6 % 34.1-44.9 MEAN CORPUSCULAR VOLUME (BEAKER) (test wuiv=774) 94.8 fL 79.4-94.8 MEAN CORPUSCULAR HEMOGLOBIN (BEAKER) (test 30.2 pg 25.6-32.2 loxz=575) MEAN CORPUSCULAR HEMOGLOBIN CONC (BEAKER) (test 31.9 GM/DL 32.2-35.5 hnqg=487) RED CELL DISTRIBUTION WIDTH (BEAKER) (test 14.5 % 11.7-14.4 pvyu=532) PLATELET COUNT (BEAKER) (test kivi=715) 335 K/CU MM 150-450 MEAN PLATELET VOLUME (BEAKER) (test ruvq=601) 10.6 fL 9.4-12.3 NUCLEATED RED BLOOD CELLS (BEAKER) (test 0 /100 WBC 0-0 ihyn=989) NEUTROPHILS RELATIVE PERCENT (BEAKER) (test 81 % ryos=104) LYMPHOCYTES RELATIVE PERCENT (BEAKER) (test 9 % xgti=266) MONOCYTES RELATIVE PERCENT (BEAKER) (test 9 % wpyl=975) EOSINOPHILS RELATIVE PERCENT (BEAKER) (test 0 % xjvy=884) BASOPHILS RELATIVE PERCENT (BEAKER) (test 0 % bvcv=260) NEUTROPHILS ABSOLUTE COUNT (BEAKER) (test 9.23 K/ L 1.56-6.13 ogxh=435) LYMPHOCYTES ABSOLUTE COUNT (BEAKER) (test 1.01 K/ L 1.18-3.74 yhqn=180) MONOCYTES ABSOLUTE COUNT (BEAKER) (test 1.07 K/ L 0.24-0.36 azij=372) EOSINOPHILS ABSOLUTE COUNT (BEAKER) (test 0.02 K/ L 0.04-0.36 ikbt=314) BASOPHILS ABSOLUTE COUNT (BEAKER) (test 0.02 K/ L 0.01-0.08 xorb=621) IMMATURE GRANULOCYTES-RELATIVE PERCENT (BEAKER) 1 % 0-1 (test dxas=9946) POCT-GLUCOSE [id number] 23:01:00 Test Item Value Reference Range Comments POC-GLUCOSE METER (BEAKER) 177 mg/dL 70-110 TESTED AT [address] (test tjlc=7071) [place] [address] POCT-GLUCOSE [id number] 17:40:00 Test Item Value Reference Range Comments POC-GLUCOSE METER (BEAKER) 220 mg/dL 70-110 TESTED AT [address] (test ewjv=4546) [place] [address] POCT-GLUCOSE [id number] 12:09:00 Test Item Value Reference Range Comments POC-GLUCOSE METER (BEAKER) 146 mg/dL 70-110 TESTED AT [address] (test scqq=5498) [place] [address] HEPATITIS PANEL, [id number] 08:46:00 Test Item Value Reference Range Comments HEPATITIS A IGM ANTIBODY (BEAKER) (test Nonreactive Nonreactive ehgi=233) HEPATITIS B CORE IGM ANTIBODY (BEAKER) (test Nonreactive Nonreactive gzfg=406) HEPATITIS C ANTIBODY (BEAKER) (test embq=012) Nonreactive Nonreactive HEPATITIS B SURFACE ANTIGEN (2) (BEAKER) (test Nonreactive Nonreactive nkng=8754) HIV-1 ANTIGEN WITH HIV-1/2 [id number] 08:46:00 Test Item Value Reference Range Comments HIV-1 ANTIGEN WITH HIV 1\\T\\2 ANTIBODY (2) Nonreactive Nonreactive (BEAKER) (test osjj=3607) CBC W/PLT COUNT & AUTO [id number] 08:36:00 Test Item Value Reference Range Comments WHITE BLOOD CELL COUNT (BEAKER) (test cnyn=276) 15.1 K/ L 3.5-10.5 RED BLOOD CELL COUNT (BEAKER) (test unkn=205) 2.74 M/ L 3.93-5.22 HEMOGLOBIN (BEAKER) (test hqqm=391) 8.4 GM/DL 11.2-15.7 HEMATOCRIT (BEAKER) (test xcgu=272) 26.6 % 34.1-44.9 MEAN CORPUSCULAR VOLUME (BEAKER) (test zlrj=016) 97.1 fL 79.4-94.8 MEAN CORPUSCULAR HEMOGLOBIN (BEAKER) (test 30.7 pg 25.6-32.2 aafy=286) MEAN CORPUSCULAR HEMOGLOBIN CONC (BEAKER) (test 31.6 GM/DL 32.2-35.5 btfu=120) RED CELL DISTRIBUTION WIDTH (BEAKER) (test 14.9 % 11.7-14.4 miyu=698) PLATELET COUNT (BEAKER) (test dfuo=576) 316 K/CU MM 150-450 MEAN PLATELET VOLUME (BEAKER) (test fstp=269) 11.1 fL 9.4-12.3 NUCLEATED RED BLOOD CELLS (BEAKER) (test 0 /100 WBC 0-0 dezf=936) NEUTROPHILS RELATIVE PERCENT (BEAKER) (test 83 % lezv=279) LYMPHOCYTES RELATIVE PERCENT (BEAKER) (test 8 % psyu=097) MONOCYTES RELATIVE PERCENT (BEAKER) (test 8 % fmjl=929) EOSINOPHILS RELATIVE PERCENT (BEAKER) (test 0 % mxbn=768) BASOPHILS RELATIVE PERCENT (BEAKER) (test 0 % bsrt=704) NEUTROPHILS ABSOLUTE COUNT (BEAKER) (test 12.50 K/ L 1.56-6.13 nvks=356) LYMPHOCYTES ABSOLUTE COUNT (BEAKER) (test 1.18 K/ L 1.18-3.74 ezuy=858) MONOCYTES ABSOLUTE COUNT (BEAKER) (test 1.26 K/ L 0.24-0.36 iuvd=861) EOSINOPHILS ABSOLUTE COUNT (BEAKER) (test 0.01 K/ L 0.04-0.36 objq=732) BASOPHILS ABSOLUTE COUNT (BEAKER) (test 0.03 K/ L 0.01-0.08 fcdb=685) IMMATURE GRANULOCYTES-RELATIVE PERCENT (BEAKER) 1 % 0-1 (test wwjm=5593) [id number] 08:22:00 Test Item Value Reference Range Comments PHOSPHORUS (BEAKER) (test bmvd=830) 2.4 mg/dL 2.3-4.7 [id number] 08:22:00 Test Item Value Reference Range Comments MAGNESIUM (BEAKER) (test ahgb=029) 1.8 mg/dL 1.6-2.6 BASIC METABOLIC [id number] 08:22:00 Test Item Value Reference Range Comments SODIUM (BEAKER) (test 138 meq/L 136-145 qhyy=298) POTASSIUM (BEAKER) (test 4.5 meq/L 3.5-5.1 ncvf=703) CHLORIDE (BEAKER) (test 104 meq/L 98-107 dkbl=535) CO2 (BEAKER) (test 25 meq/L 22-29 iocs=048) BLOOD UREA NITROGEN 22 mg/dL 7-21 (BEAKER) (test qazm=290) CREATININE (BEAKER) (test 0.52 mg/dL 0.57-1.25 joja=590) GLUCOSE RANDOM (BEAKER) 76 mg/dL 70-105 (test tyjx=410) CALCIUM (BEAKER) (test 8.3 mg/dL 8.4-10.2 ndwm=733) EGFR (BEAKER) (test 121 mL/min/1.73 sq m ESTIMATED GFR IS NOT iwvk=5648) ACCURATE CREATININE CLEARANCE IN PREDICTING GLOMERULAR FILTRATION RATE. ESTIMATED GFR IS NOT APPLICABLE FOR DIALYSIS PATIENTS. [id number] 07:21:00 Test Item Value Reference Range Comments PROTIME (BEAKER) (test jcwp=944) 16.9 seconds 11.7-14.7 INR (BEAKER) (test kequ=211) 1.4 <=5.9 PARTIAL THROMBOPLASTIN TIME (BEAKER) (test 32.6 seconds 22.5-36.0 jlvj=809) RECOMMENDED COUMADIN/WARFARIN INR THERAPY RANGESSTANDARD DOSE: 2.0 - 3.0 Includes: PROPHYLAXIS forvenous thrombosis, systemic embolization; TREATMENT for venous thrombosis and/or pulmonary embolus.HIGH RISK: Target INR is 2.5-3.5 for patients with mechanical heart valves.POCT-GLUCOSE [id number] 07:16:00 Test Item Value Reference Range Comments POC-GLUCOSE METER (BEAKER) 135 mg/dL 70-110 TESTED AT [address] (test laaq=4355) [place] [id number] CALCIUM, [id number] 06:44:00 Test Item Value Reference Range Comments CALCIUM IONIZED (BEAKER) (test ckwr=948) 1.07 mmol/L 1.12-1.27 PH, BLOOD (BEAKER) (test nooc=0070) 7.42 POCT-GLUCOSE [id number] 23:12:00 Test Item Value Reference Range Comments POC-GLUCOSE METER (BEAKER) 173 mg/dL 70-110 TESTED AT [address] (test rnnx=7452) [place] [id number] CT, DRAINAGE, [id number] 17:13:00Send fluid for C\\T\\S, Gstain, fungal C \\T\\S. Place to bulb suction. Reason for exam:->intestinal leak Should this be performed at the bedside?->NoFINAL REPORT CT- guided drainage catheter placement dated 11/17/2017 Name of practitioner performing procedure:Lucy Peraza M.D. Names of biology laboratory assistant:None Procedure: Drainage placement into the abdominal [...] performed under usual sterile technique. A 10 [place] pigtail catheter was placed into the right mid abdominal air-fluid collection. The drainage catheter was left in place, secured to skin with suture , and connected to bulb suction. Yuvcqpngulesx43 cc of cloudy fluid was removed. The specimen was sent to microbiology. Impression: Successful CT- guided drainage catheter placement into the right mid abdominal air-fluid collection. Signed: Lucy Peraza MDReport Verified Date/Time: 11/17/2017 17:13: 40 Reading Location: [facility] B1 C013Y CT Body Reading Room CBC W/PLT COUNT & AUTO [id number] 13:16:00 Test Item Value Reference Range Comments WHITE BLOOD CELL COUNT (BEAKER) (test xcap=460) 17.0 K/ L 3.5-10.5 RED BLOOD CELL COUNT (BEAKER) (test jzzx=489) 2.76 M/ L 3.93-5.22 HEMOGLOBIN (BEAKER) (test fbwe=124) 8.3 GM/DL 11.2-15.7 HEMATOCRIT (BEAKER) (test gajt=024) 26.8 % 34.1-44.9 MEAN CORPUSCULAR VOLUME (BEAKER) (test zyoy=375) 97.1 fL 79.4-94.8 MEAN CORPUSCULAR HEMOGLOBIN (BEAKER) (test 30.1 pg 25.6-32.2 ybdj=239) MEAN CORPUSCULAR HEMOGLOBIN CONC (BEAKER) (test 31.0 GM/DL 32.2-35.5 eorj=666) RED CELL DISTRIBUTION WIDTH (BEAKER) (test 15.6 % 11.7-14.4 gurh=963) PLATELET COUNT (BEAKER) (test dxpg=444) 314 K/CU MM 150-450 MEAN PLATELET VOLUME (BEAKER) (test rhrs=730) 11.1 fL 9.4-12.3 NUCLEATED RED BLOOD CELLS (BEAKER) (test 0 /100 WBC 0-0 xayv=325) NEUTROPHILS RELATIVE PERCENT (BEAKER) (test 84 % sxta=922) LYMPHOCYTES RELATIVE PERCENT (BEAKER) (test 8 % mazq=754) MONOCYTES RELATIVE PERCENT (BEAKER) (test 8 % jrjp=887) EOSINOPHILS RELATIVE PERCENT (BEAKER) (test 0 % xmcd=006) BASOPHILS RELATIVE PERCENT (BEAKER) (test 0 % dgwq=175) NEUTROPHILS ABSOLUTE COUNT (BEAKER) (test 14.20 K/ L 1.56-6.13 wikv=970) LYMPHOCYTES ABSOLUTE COUNT (BEAKER) (test 1.31 K/ L 1.18-3.74 lfkv=210) MONOCYTES ABSOLUTE COUNT (BEAKER) (test 1.35 K/ L 0.24-0.36 tuyp=521) EOSINOPHILS ABSOLUTE COUNT (BEAKER) (test 0.01 K/ L 0.04-0.36 yjzm=481) BASOPHILS ABSOLUTE COUNT (BEAKER) (test 0.02 K/ L 0.01-0.08 ruxq=961) IMMATURE GRANULOCYTES-RELATIVE PERCENT (BEAKER) 1 % 0-1 (test ixno=5754) [id number] 13:15:00 Test Item Value Reference Range Comments PHOSPHORUS (BEAKER) (test aegb=341) 2.0 mg/dL 2.3-4.7 [id number] 13:15:00 Test Item Value Reference Range Comments MAGNESIUM (BEAKER) (test hgfy=491) 1.7 mg/dL 1.6-2.6 [id number] 12:58:00 Test Item Value Reference Range Comments PROTIME (BEAKER) (test dacc=560) 17.3 seconds 11.7-14.7 INR (BEAKER) (test fkej=389) 1.4 <=5.9 PARTIAL THROMBOPLASTIN TIME (BEAKER) (test 33.1 seconds 22.5-36.0 bpoi=682) RECOMMENDED COUMADIN/WARFARIN INR THERAPY RANGESSTANDARD DOSE: 2.0 - 3.0 Includes: PROPHYLAXIS forvenous thrombosis, systemic embolization; TREATMENT for venous thrombosis and/or pulmonary embolus.HIGH RISK: Target INR is 2.5-3.5 for patients with mechanical heart valves.[id number] 08:29:00 Test Item Value Reference Range Comments PHOSPHORUS (BEAKER) (test ufar=593) 2.3 mg/dL 2.3-4.7 [id number] 08:29:00 Test Item Value Reference Range Comments MAGNESIUM (BEAKER) (test hawh=873) 1.7 mg/dL 1.6-2.6 BASIC METABOLIC [id number] 08:29:00 Test Item Value Reference Range Comments SODIUM (BEAKER) (test 137 meq/L 136-145 hrdo=112) POTASSIUM (BEAKER) (test 4.3 meq/L 3.5-5.1 awak=933) CHLORIDE (BEAKER) (test 103 meq/L 98-107 adto=170) CO2 (BEAKER) (test 28 meq/L 22-29 shgn=631) BLOOD UREA NITROGEN 22 mg/dL 7-21 (BEAKER) (test vxnr=342) CREATININE (BEAKER) (test 0.51 mg/dL 0.57-1.25 fnnd=135) GLUCOSE RANDOM (BEAKER) 78 mg/dL 70-105 (test howx=655) CALCIUM (BEAKER) (test 8.1 mg/dL 8.4-10.2 dwpo=523) EGFR (BEAKER) (test 123 mL/min/1.73 sq m ESTIMATED GFR IS NOT rpjv=7160) ACCURATE CREATININE CLEARANCE IN PREDICTING GLOMERULAR FILTRATION RATE. ESTIMATED GFR IS NOT APPLICABLE FOR DIALYSIS PATIENTS. PROTHROMBIN [id number] 08:20:00 Test Item Value Reference Range Comments PROTIME (BEAKER) (test zqpz=744) 17.8 seconds 11.7-14.7 INR (BEAKER) (test ybru=421) 1.5 <=5.9 RECOMMENDED COUMADIN/WARFARIN INR THERAPY RANGESSTANDARD DOSE: 2.0 - 3.0 Includes: PROPHYLAXIS forvenous thrombosis, systemic embolization; TREATMENT for venous thrombosis and/or pulmonary embolus.HIGH RISK: Target INR is 2.5-3.5 for patients with mechanical heart valves.CBC W/PLT COUNT & AUTO [id number] 08:07:00 Test Item Value Reference Range Comments WHITE BLOOD CELL COUNT (BEAKER) (test txqp=467) 16.0 K/ L 3.5-10.5 RED BLOOD CELL COUNT (BEAKER) (test efvx=231) 2.79 M/ L 3.93-5.22 HEMOGLOBIN (BEAKER) (test htmw=689) 8.3 GM/DL 11.2-15.7 HEMATOCRIT (BEAKER) (test llfv=504) 26.5 % 34.1-44.9 MEAN CORPUSCULAR VOLUME (BEAKER) (test kcbq=231) 95.0 fL 79.4-94.8 MEAN CORPUSCULAR HEMOGLOBIN (BEAKER) (test 29.7 pg 25.6-32.2 orye=008) MEAN CORPUSCULAR HEMOGLOBIN CONC (BEAKER) (test 31.3 GM/DL 32.2-35.5 wceo=785) RED CELL DISTRIBUTION WIDTH (BEAKER) (test 15.0 % 11.7-14.4 nuxx=201) PLATELET COUNT (BEAKER) (test aesr=723) 304 K/CU MM 150-450 MEAN PLATELET VOLUME (BEAKER) (test hfhe=916) 10.6 fL 9.4-12.3 NUCLEATED RED BLOOD CELLS (BEAKER) (test 0 /100 WBC 0-0 upcp=063) NEUTROPHILS RELATIVE PERCENT (BEAKER) (test 83 % hqvd=288) LYMPHOCYTES RELATIVE PERCENT (BEAKER) (test 9 % vkyw=620) MONOCYTES RELATIVE PERCENT (BEAKER) (test 7 % frmn=104) EOSINOPHILS RELATIVE PERCENT (BEAKER) (test 1 % rzxx=933) BASOPHILS RELATIVE PERCENT (BEAKER) (test 0 % bmfk=960) NEUTROPHILS ABSOLUTE COUNT (BEAKER) (test 13.19 K/ L 1.56-6.13 oond=990) LYMPHOCYTES ABSOLUTE COUNT (BEAKER) (test 1.41 K/ L 1.18-3.74 kbrz=928) MONOCYTES ABSOLUTE COUNT (BEAKER) (test 1.12 K/ L 0.24-0.36 hcrk=630) EOSINOPHILS ABSOLUTE COUNT (BEAKER) (test 0.08 K/ L 0.04-0.36 zuzr=678) BASOPHILS ABSOLUTE COUNT (BEAKER) (test 0.04 K/ L 0.01-0.08 mljo=802) IMMATURE GRANULOCYTES-RELATIVE PERCENT (BEAKER) 1 % 0-1 (test repw=9478) POCT-GLUCOSE [id number] 05:30:00 Test Item Value Reference Range Comments POC-GLUCOSE METER (BEAKER) 145 mg/dL 70-[address] [facility] [address] [facility] (test qbuo=4775) [facility] [address] CALCIUM, [id number] 02:43:00 Test Item Value Reference Range Comments CALCIUM IONIZED (BEAKER) (test wtqx=480) 1.08 mmol/L 1.12-1.27 PH, BLOOD (BEAKER) (test cfkn=5612) 7.45 POCT-GLUCOSE [id number] 00:09:00 Test Item Value Reference Range Comments POC-GLUCOSE METER (BEAKER) 135 mg/dL 70-110 TESTED AT [address] (test swzh=3805) [place] [id number] THROMBOELASTOGRAPH ([id number])[id number] 17:44:00 Test Item Value Reference Range Comments TEG ACTIVATED CLOTTING TIME (BEAKER) (test 5.6 minutes 4.0-7.0 jfgc=0182) TEG FIBRINOGEN ACTIVITY (BEAKER) (test 76.5 degrees 61.0-73.0 yovn=3458) TEG PLT. AGGREGATION (BEAKER) (test fgam=5140) 72.1 MM 55.0-65.0 TEG FIBRINOLYSIS (BEAKER) (test yfsv=1237) 0.1 % 0.0-5.0 TGH ACTIVATED CLOTTING TIME (BEAKER) (test 5.8 minutes 4.0-7.0 dagb=6007) TGH FIBRINOGEN ACTIVITY (BEAKER) (test 75.6 degrees 61.0-73.0 iusy=4347) TGH PLT. AGGREGATION (BEAKER) (test dktu=7346) 69.9 MM 55.0-65.0 TGH FIBRINOLYSIS (BEAKER) (test asho=2037) 0.0 % 0.0-5.0 POCT-GLUCOSE [id number] 17:10:00 Test Item Value Reference Range Comments POC-GLUCOSE METER (BEAKER) 160 mg/dL 70-110 TESTED AT [address] (test bbsy=8051) [place] [address] [id number] 16:08:00 Test Item Value Reference Range Comments FIBRINOGEN LEVEL (BEAKER) (test vsco=050) 335 mg/dl 225-434 POCT-GLUCOSE [id number] 14:43:00 Test Item Value Reference Range Comments POC-GLUCOSE METER (BEAKER) 205 mg/dL 70-110 TESTED AT [address] (test tzbp=7484) [place] [address] PROTHROMBIN [id number] 11:51:00 Test Item Value Reference Range Comments PROTIME (BEAKER) (test hzxh=696) 19.6 seconds 11.7-14.7 INR (BEAKER) (test zssl=552) 1.7 <=5.9 RECOMMENDED COUMADIN/WARFARIN INR THERAPY RANGESSTANDARD DOSE: 2.0 - 3.0 Includes: PROPHYLAXIS forvenous thrombosis, systemic embolization; TREATMENT for venous thrombosis and/or pulmonary embolus.HIGH RISK: Target INR is 2.5-3.5 for patients with mechanical heart valves.POCT-GLUCOSE [id number] 08:52:00 Test Item Value Reference Range Comments POC-GLUCOSE METER (BEAKER) 133 mg/dL 70-[address] [facility] [address] [facility] (test mxza=8895) [facility] [address] POCT-GLUCOSE [id number] 06:06:00 Test Item Value Reference Range Comments POC-GLUCOSE METER (BEAKER) 144 mg/dL 70-110 TESTED AT [place] [id number] [facility] (test cixz=9624) [facility] [address] CALCIUM, [id number] 04:52:00 Test Item Value Reference Range Comments CALCIUM IONIZED (BEAKER) (test gcvi=489) 1.01 mmol/L 1.12-1.27 PH, BLOOD (BEAKER) (test hjaw=9054) 7.45 BASIC METABOLIC [id number] 04:22:00 Test Item Value Reference Range Comments SODIUM (BEAKER) (test 137 meq/L 136-145 cniz=729) POTASSIUM (BEAKER) (test 4.3 meq/L 3.5-5.1 xtal=491) CHLORIDE (BEAKER) (test 103 meq/L 98-107 rghl=404) CO2 (BEAKER) (test 28 meq/L 22-29 bmjd=908) BLOOD UREA NITROGEN 28 mg/dL 7-21 (BEAKER) (test vrkw=538) CREATININE (BEAKER) (test 0.50 mg/dL 0.57-1.25 xhig=012) GLUCOSE RANDOM (BEAKER) 112 mg/dL 70-105 (test mkuk=481) CALCIUM (BEAKER) (test 7.7 mg/dL 8.4-10.2 mixf=667) EGFR (BEAKER) (test 126 mL/min/1.73 sq m ESTIMATED GFR IS NOT jntl=4850) ACCURATE CREATININE CLEARANCE IN PREDICTING GLOMERULAR FILTRATION RATE. ESTIMATED GFR IS NOT APPLICABLE FOR DIALYSIS PATIENTS. [id number] 04:17:00 Test Item Value Reference Range Comments TRIGLYCERIDES (BEAKER) (test oxny=539) 70 mg/dL TRIGLYCERIDE REFERENCE RANGELow Risk <150Borderline Risk 150-199High Risk 200-499Very High Risk>=[id number] 04:17:00 Test Item Value Reference Range Comments MAGNESIUM (BEAKER) (test mzhb=024) 2.0 mg/dL 1.6-2.6 [id number] 04:17:00 Test Item Value Reference Range Comments PHOSPHORUS (BEAKER) (test inxn=794) 2.3 mg/dL 2.3-4.7 [id number] 04:11:00 Test Item Value Reference Range Comments PROTIME (BEAKER) (test cqfi=456) 22.8 seconds 11.7-14.7 INR (BEAKER) (test lwdw=086) 2.0 <=5.9 PARTIAL THROMBOPLASTIN TIME (BEAKER) (test 41.9 seconds 22.5-36.0 kxbl=671) RECOMMENDED COUMADIN/WARFARIN INR THERAPY RANGESSTANDARD DOSE: 2.0 - 3.0 Includes: PROPHYLAXIS forvenous thrombosis, systemic embolization; TREATMENT for venous thrombosis and/or pulmonary embolus.HIGH RISK: Target INR is 2.5-3.5 for patients with mechanical heart valves.CBC W/PLT COUNT & AUTO [id number] 04:09:00 Test Item Value Reference Range Comments WHITE BLOOD CELL COUNT (BEAKER) (test luox=539) 21.9 K/ L 3.5-10.5 RED BLOOD CELL COUNT (BEAKER) (test rtaw=952) 3.21 M/ L 3.93-5.22 HEMOGLOBIN (BEAKER) (test iuxd=268) 9.6 GM/DL 11.2-15.7 HEMATOCRIT (BEAKER) (test qcgm=144) 29.8 % 34.1-44.9 MEAN CORPUSCULAR VOLUME (BEAKER) (test qurx=909) 92.8 fL 79.4-94.8 MEAN CORPUSCULAR HEMOGLOBIN (BEAKER) (test 29.9 pg 25.6-32.2 lexm=611) MEAN CORPUSCULAR HEMOGLOBIN CONC (BEAKER) (test 32.2 GM/DL 32.2-35.5 nths=849) RED CELL DISTRIBUTION WIDTH (BEAKER) (test 15.1 % 11.7-14.4 axwv=569) PLATELET COUNT (BEAKER) (test ovjx=563) 292 K/CU MM 150-450 MEAN PLATELET VOLUME (BEAKER) (test fmhf=698) 10.8 fL 9.4-12.3 NUCLEATED RED BLOOD CELLS (BEAKER) (test 0 /100 WBC 0-0 fczj=607) NEUTROPHILS RELATIVE PERCENT (BEAKER) (test 86 % ipnb=782) LYMPHOCYTES RELATIVE PERCENT (BEAKER) (test 6 % wjvz=341) MONOCYTES RELATIVE PERCENT (BEAKER) (test 6 % qjkd=452) EOSINOPHILS RELATIVE PERCENT (BEAKER) (test 0 % fvzb=322) BASOPHILS RELATIVE PERCENT (BEAKER) (test 0 % njbl=846) NEUTROPHILS ABSOLUTE COUNT (BEAKER) (test 18.89 K/ L 1.56-6.13 mqkw=447) LYMPHOCYTES ABSOLUTE COUNT (BEAKER) (test 1.37 K/ L 1.18-3.74 zviz=677) MONOCYTES ABSOLUTE COUNT (BEAKER) (test 1.34 K/ L 0.24-0.36 jolc=633) EOSINOPHILS ABSOLUTE COUNT (BEAKER) (test 0.05 K/ L 0.04-0.36 hpqf=596) BASOPHILS ABSOLUTE COUNT (BEAKER) (test 0.05 K/ L 0.01-0.08 fenc=593) IMMATURE GRANULOCYTES-RELATIVE PERCENT (BEAKER) 1 % 0-1 (test cotc=7963) POCT-GLUCOSE [id number] 00:45:00 Test Item Value Reference Range Comments POC-GLUCOSE METER (BEAKER) 132 mg/dL 70-[address] [facility] [address] [facility] (test cjfo=0205) [facility] [address] [address], [id number] 18:11:00PO and IV contrastFINAL REPORT ABDOMINAL AND [...] MDReport Verified Date/Time: 11/15/2017 18:11:48 Reading Location: [facility] C013Y CT Body Reading Room 06: 11 PMPOCT-GLUCOSE [id number] 11:41:00 Test Item Value Reference Range Comments POC-GLUCOSE METER (BEAKER) 171 mg/dL 70-[address] [facility] [address] [facility] (test jvfy=8600) [facility] [address] FUNGUS CULTURE + [id number] 10:38:00 Test Item Value Reference Range Comments CULTURE (BEAKER) (test <1+ Same organism has been rwqv=3392) isolated from culture(s) of the same body site and collection date. Repeat identification performed only after consultation with the clinical microbiology laboratory.Refer to previous culture ofCandida albicans FUNGUS SMEAR (BEAKER) No fungi seen (test moln=5505) FUNGUS CULTURE + [id number] 10:37:00 Test Item Value Reference Range Comments CULTURE (BEAKER) (test tjbf=8024) 5-Flurocytosine (test Susceptible 0-4 , dwdx=014) Intermediate <0 or >4 , Resistant >16 Amphotericin B (test Susceptible >0-0 , No crpl=942) Interpretations Established <=0 or >0 Caspofungin acetate Susceptible 0-0.12 , Non (test zvfr=776) Fluconazole (test Susceptible 0-0 , Dose yxag=016) Dependent Susceptible <0 or >0 , Resi Micafungin (test Susceptible 0-0.06 , Non kuro=703) Posaconazole (test Susceptible >0-0 , No nipl=024) Interpretations Established <=0 or >0 Voriconazole (test Susceptible >0-0 , Dose urom=267) Dependent Susceptible <=0 or >0 , No CULTURE (BEAKER) (test 3+ Maryanne rwmh=6268) glabrata FUNGUS SMEAR (BEAKER) <1+ budding yeast (test cuqs=4627) BLOOD [id number] 10:00:00 Test Item Value Reference Range Comments CULTURE (BEAKER) (test vmgq=5555) No growth in 5 days BLOOD [id number] 10:00:00 Test Item Value Reference Range Comments CULTURE (BEAKER) (test klzf=7830) No growth in 5 days CBC W/PLT COUNT & AUTO [id number] 08:19:00 Test Item Value Reference Range Comments WHITE BLOOD CELL COUNT (BEAKER) (test cmij=756) 29.0 K/ L 3.5-10.5 RED BLOOD CELL COUNT (BEAKER) (test kvkc=919) 3.41 M/ L 3.93-5.22 HEMOGLOBIN (BEAKER) (test ywxh=104) 10.2 GM/DL 11.2-15.7 HEMATOCRIT (BEAKER) (test lnxa=822) 31.9 % 34.1-44.9 MEAN CORPUSCULAR VOLUME (BEAKER) (test yiig=188) 93.5 fL 79.4-94.8 MEAN CORPUSCULAR HEMOGLOBIN (BEAKER) (test 29.9 pg 25.6-32.2 gche=832) MEAN CORPUSCULAR HEMOGLOBIN CONC (BEAKER) (test 32.0 GM/DL 32.2-35.5 heqr=088) RED CELL DISTRIBUTION WIDTH (BEAKER) (test 15.4 % 11.7-14.4 gwcb=068) PLATELET COUNT (BEAKER) (test omiu=152) 276 K/CU MM 150-450 MEAN PLATELET VOLUME (BEAKER) (test tppo=368) 11.1 fL 9.4-12.3 NUCLEATED RED BLOOD CELLS (BEAKER) (test 0 /100 WBC 0-0 inhc=615) NEUTROPHILS RELATIVE PERCENT (BEAKER) (test 87 % disb=814) LYMPHOCYTES RELATIVE PERCENT (BEAKER) (test 6 % jlov=540) MONOCYTES RELATIVE PERCENT (BEAKER) (test 5 % jrzp=455) EOSINOPHILS RELATIVE PERCENT (BEAKER) (test 0 % fxbg=110) BASOPHILS RELATIVE PERCENT (BEAKER) (test 0 % kphl=106) NEUTROPHILS ABSOLUTE COUNT (BEAKER) (test 25.13 K/ L 1.56-6.13 wtqy=041) LYMPHOCYTES ABSOLUTE COUNT (BEAKER) (test 1.70 K/ L 1.18-3.74 raqe=615) MONOCYTES ABSOLUTE COUNT (BEAKER) (test 1.57 K/ L 0.24-0.36 xssw=078) EOSINOPHILS ABSOLUTE COUNT (BEAKER) (test 0.13 K/ L 0.04-0.36 pgzb=869) BASOPHILS ABSOLUTE COUNT (BEAKER) (test 0.07 K/ L 0.01-0.08 vvda=379) IMMATURE GRANULOCYTES-RELATIVE PERCENT (BEAKER) 1 % 0-1 (test zxyr=8823) (MANUAL DIFFERENTIAL)2017-11-15 08:19:00 Test Item Value Reference Range Comments TOTAL COUNTED (BEAKER) (test gzxk=1754) WBC MORPHOLOGY (BEAKER) (test mnmr=679) Normal PLT MORPHOLOGY (BEAKER) (test awvj=105) Normal RBC MORPHOLOGY (BEAKER) (test yklt=677) Normal CALCIUM, [id number] 04:56:00 Test Item Value Reference Range Comments CALCIUM IONIZED (BEAKER) (test pclz=021) 1.15 mmol/L 1.12-1.27 PH, BLOOD (BEAKER) (test kerm=7539) 7.43 [id number] 04:29:00 Test Item Value Reference Range Comments PHOSPHORUS (BEAKER) (test nwnl=196) 2.5 mg/dL 2.3-4.7 [id number] 04:29:00 Test Item Value Reference Range Comments MAGNESIUM (BEAKER) (test funl=155) 1.5 mg/dL 1.6-2.6 BASIC METABOLIC [id number] 04:29:00 Test Item Value Reference Range Comments SODIUM (BEAKER) (test 140 meq/L 136-145 hwig=356) POTASSIUM (BEAKER) (test 4.3 meq/L 3.5-5.1 fjfa=559) CHLORIDE (BEAKER) (test 106 meq/L 98-107 hrdi=974) CO2 (BEAKER) (test 27 meq/L 22-29 xkqb=476) BLOOD UREA NITROGEN 31 mg/dL 7-21 (BEAKER) (test pucz=898) CREATININE (BEAKER) (test 0.50 mg/dL 0.57-1.25 dmxo=631) GLUCOSE RANDOM (BEAKER) 112 mg/dL 70-105 (test casn=412) CALCIUM (BEAKER) (test 8.0 mg/dL 8.4-10.2 zcqv=636) EGFR (BEAKER) (test 126 mL/min/1.73 sq m ESTIMATED GFR IS NOT lyri=9557) ACCURATE CREATININE CLEARANCE IN PREDICTING GLOMERULAR FILTRATION RATE. ESTIMATED GFR IS NOT APPLICABLE FOR DIALYSIS PATIENTS. PROTHROMBIN TIME/[id number] 04:16:00 Test Item Value Reference Range Comments PROTIME (BEAKER) (test sgbp=507) 23.9 seconds 11.7-14.7 INR (BEAKER) (test zuuf=828) 2.1 <=5.9 RECOMMENDED COUMADIN/WARFARIN INR THERAPY RANGESSTANDARD DOSE: 2.0 - 3.0 Includes: PROPHYLAXIS forvenous thrombosis, systemic embolization; TREATMENT for venous thrombosis and/or pulmonary embolus.HIGH RISK: Target INR is 2.5-3.5 for patients with mechanical heart valves.POCT-GLUCOSE [id number] 00:37:00 Test Item Value Reference Range Comments POC-GLUCOSE METER (BEAKER) 113 mg/dL 70-110 TESTED AT [address] (test risu=0545) [facility] [address] POCT-GLUCOSE [id number] 17:55:00 Test Item Value Reference Range Comments POC-GLUCOSE METER (BEAKER) 172 mg/dL 70-110 TESTED AT [address] (test suvd=9032) [facility] [address] POCT-GLUCOSE [id number] 12:17:00 Test Item Value Reference Range Comments POC-GLUCOSE METER (BEAKER) 179 mg/dL 70-110 TESTED AT [place] [address] [address] (test uxqb=6644) [place] [address] CBC W/PLT COUNT & AUTO [id number] 08:15:00 Test Item Value Reference Range Comments WHITE BLOOD CELL COUNT (BEAKER) (test ewnl=485) 27.3 K/ L 3.5-10.5 RED BLOOD CELL COUNT (BEAKER) (test jfyz=798) 3.15 M/ L 3.93-5.22 HEMOGLOBIN (BEAKER) (test ducq=142) 9.6 GM/DL 11.2-15.7 HEMATOCRIT (BEAKER) (test kkym=853) 29.8 % 34.1-44.9 MEAN CORPUSCULAR VOLUME (BEAKER) (test dtgz=791) 94.6 fL 79.4-94.8 MEAN CORPUSCULAR HEMOGLOBIN (BEAKER) (test 30.5 pg 25.6-32.2 zdbz=163) MEAN CORPUSCULAR HEMOGLOBIN CONC (BEAKER) (test 32.2 GM/DL 32.2-35.5 zxnz=922) RED CELL DISTRIBUTION WIDTH (BEAKER) (test 15.7 % 11.7-14.4 chnf=958) PLATELET COUNT (BEAKER) (test shsl=347) 214 K/CU MM 150-450 MEAN PLATELET VOLUME (BEAKER) (test kxrl=112) 11.3 fL 9.4-12.3 NUCLEATED RED BLOOD CELLS (BEAKER) (test 0 /100 WBC 0-0 qijm=804) NEUTROPHILS RELATIVE PERCENT (BEAKER) (test 87 % gqtp=352) LYMPHOCYTES RELATIVE PERCENT (BEAKER) (test 6 % cuor=561) MONOCYTES RELATIVE PERCENT (BEAKER) (test 5 % hbjr=929) EOSINOPHILS RELATIVE PERCENT (BEAKER) (test 1 % vitw=799) BASOPHILS RELATIVE PERCENT (BEAKER) (test 0 % gkqy=254) NEUTROPHILS ABSOLUTE COUNT (BEAKER) (test 23.56 K/ L 1.56-6.13 wuhk=169) LYMPHOCYTES ABSOLUTE COUNT (BEAKER) (test 1.70 K/ L 1.18-3.74 kiyb=779) MONOCYTES ABSOLUTE COUNT (BEAKER) (test 1.41 K/ L 0.24-0.36 obdn=260) EOSINOPHILS ABSOLUTE COUNT (BEAKER) (test 0.22 K/ L 0.04-0.36 mitn=901) BASOPHILS ABSOLUTE COUNT (BEAKER) (test 0.05 K/ L 0.01-0.08 cbwr=298) IMMATURE GRANULOCYTES-RELATIVE PERCENT (BEAKER) 1 % 0-1 (test lpeq=6046) (MANUAL DIFFERENTIAL)2017-11-14 08:15:00 Test Item Value Reference Range Comments TOTAL COUNTED (BEAKER) (test zgps=3490) WBC MORPHOLOGY (BEAKER) (test akby=549) Normal PLT MORPHOLOGY (BEAKER) (test kuzx=267) Normal RBC MORPHOLOGY (BEAKER) (test ojsu=428) Normal VANCOMYCIN LEVEL, [id number] 08:13:00 Test Item Value Reference Range Comments VANCOMYCIN TROUGH (BEAKER) (test mhuh=368) 12.9 ug/mL 10.0-20.0 POCT-GLUCOSE [id number] 06:30:00 Test Item Value Reference Range Comments POC-GLUCOSE METER (BEAKER) 134 mg/dL 70-[address] [facility] [address] [facility] (test axbt=7760) [facility] [address] CALCIUM, [id number] 06:24:00 Test Item Value Reference Range Comments CALCIUM IONIZED (BEAKER) (test etsg=489) 1.03 mmol/L 1.12-1.27 PH, BLOOD (BEAKER) (test xauq=8689) 7.43 BASIC METABOLIC [id number] 04:52:00 Test Item Value Reference Range Comments SODIUM (BEAKER) (test 142 meq/L 136-145 axcs=163) POTASSIUM (BEAKER) (test 4.0 meq/L 3.5-5.1 mcgl=419) CHLORIDE (BEAKER) (test 108 meq/L 98-107 sgib=208) CO2 (BEAKER) (test 29 meq/L 22-29 kryj=648) BLOOD UREA NITROGEN 31 mg/dL 7-21 (BEAKER) (test jpbw=745) CREATININE (BEAKER) (test 0.48 mg/dL 0.57-1.25 larq=357) GLUCOSE RANDOM (BEAKER) 93 mg/dL 70-105 (test pnns=597) CALCIUM (BEAKER) (test 7.7 mg/dL 8.4-10.2 eftw=228) EGFR (BEAKER) (test 132 mL/min/1.73 sq m ESTIMATED GFR IS NOT zzyn=3478) ACCURATE CREATININE CLEARANCE IN PREDICTING GLOMERULAR FILTRATION RATE. ESTIMATED GFR IS NOT APPLICABLE FOR DIALYSIS PATIENTS. [id number] 04:49:00 Test Item Value Reference Range Comments PHOSPHORUS (BEAKER) (test aito=002) 2.1 mg/dL 2.3-4.7 [id number] 04:49:00 Test Item Value Reference Range Comments MAGNESIUM (BEAKER) (test cygs=312) 1.9 mg/dL 1.6-2.6 PROTHROMBIN [id number] 04:44:00 Test Item Value Reference Range Comments PROTIME (BEAKER) (test uqjx=971) 23.6 seconds 11.7-14.7 INR (BEAKER) (test udtk=984) 2.1 <=5.9 RECOMMENDED COUMADIN/WARFARIN INR THERAPY RANGESSTANDARD DOSE: 2.0 - 3.0 Includes: PROPHYLAXIS forvenous thrombosis, systemic embolization; TREATMENT for venous thrombosis and/or pulmonary embolus.HIGH RISK: Target INR is 2.5-3.5 for patients with mechanical heart valves.HEMOGLOBIN AND [id number] 04 :37:00 Test Item Value Reference Range Comments HEMOGLOBIN (BEAKER) (test dzma=695) 9.6 GM/DL 11.2-15.7 HEMATOCRIT (BEAKER) (test pxad=356) 29.8 % 34.1-44.9 POCT-GLUCOSE [id number] 23:36:00 Test Item Value Reference Range Comments POC-GLUCOSE METER (BEAKER) 139 mg/dL 70-[address] [facility] [address] [facility] (test pfhk=4819) [facility] [address] POCT-GLUCOSE [id number] 18:04:00 Test Item Value Reference Range Comments POC-GLUCOSE METER (BEAKER) 220 mg/dL 70-[address] [facility] [address] [facility] (test qtnd=5144) [facility] [address] HEMOGLOBIN AND [id number] 17:09:00 Test Item Value Reference Range Comments HEMOGLOBIN (BEAKER) (test ckxi=737) 10.2 GM/DL 11.2-15.7 HEMATOCRIT (BEAKER) (test kbxt=808) 33.8 % 34.1-44.9 POCT-GLUCOSE [id number] 12:13:00 Test Item Value Reference Range Comments POC-GLUCOSE METER (BEAKER) 194 mg/dL 70-110 TESTED AT [address] (test oegf=5212) [facility] [address] PROTHROMBIN [id number] 10:05:00 Test Item Value Reference Range Comments PROTIME (BEAKER) (test lhst=462) 21.4 seconds 11.7-14.7 INR (BEAKER) (test egml=721) 1.9 <=5.9 RECOMMENDED COUMADIN/WARFARIN INR THERAPY RANGESSTANDARD DOSE: 2.0 - 3.0 Includes: PROPHYLAXIS forvenous thrombosis, systemic embolization; TREATMENT for venous thrombosis and/or pulmonary embolus.HIGH RISK: Target INR is 2.5-3.5 for patients with mechanical heart valves.POCT-GLUCOSE [id number] 07:40:00 Test Item Value Reference Range Comments POC-GLUCOSE METER (BEAKER) 138 mg/dL 70-110 TESTED AT [address] (test cfya=9638) [facility] [address] CALCIUM, [id number] 04:47:00 Test Item Value Reference Range Comments CALCIUM IONIZED (BEAKER) (test tmcs=671) 1.16 mmol/L 1.12-1.27 PH, BLOOD (BEAKER) (test lxlk=6696) 7.41 CBC W/PLT COUNT & AUTO [id number] 04:41:00 Test Item Value Reference Range Comments WHITE BLOOD CELL COUNT (BEAKER) (test mcly=779) 27.4 K/ L 3.5-10.5 RED BLOOD CELL COUNT (BEAKER) (test bbdo=379) 3.30 M/ L 3.93-5.22 HEMOGLOBIN (BEAKER) (test azii=234) 10.0 GM/DL 11.2-15.7 HEMATOCRIT (BEAKER) (test wmuq=284) 30.8 % 34.1-44.9 MEAN CORPUSCULAR VOLUME (BEAKER) (test jooo=893) 93.3 fL 79.4-94.8 MEAN CORPUSCULAR HEMOGLOBIN (BEAKER) (test 30.3 pg 25.6-32.2 ugrf=535) MEAN CORPUSCULAR HEMOGLOBIN CONC (BEAKER) (test 32.5 GM/DL 32.2-35.5 veia=679) RED CELL DISTRIBUTION WIDTH (BEAKER) (test 15.6 % 11.7-14.4 klne=722) PLATELET COUNT (BEAKER) (test gvqo=727) 189 K/CU MM 150-450 MEAN PLATELET VOLUME (BEAKER) (test blrk=446) 11.0 fL 9.4-12.3 NUCLEATED RED BLOOD CELLS (BEAKER) (test 0 /100 WBC 0-0 sgam=720) NEUTROPHILS RELATIVE PERCENT (BEAKER) (test 86 % myoa=804) LYMPHOCYTES RELATIVE PERCENT (BEAKER) (test 6 % stmu=220) MONOCYTES RELATIVE PERCENT (BEAKER) (test 5 % glom=030) EOSINOPHILS RELATIVE PERCENT (BEAKER) (test 1 % wjhc=118) BASOPHILS RELATIVE PERCENT (BEAKER) (test 0 % gykj=034) NEUTROPHILS ABSOLUTE COUNT (BEAKER) (test 23.62 K/ L 1.56-6.13 nbky=119) LYMPHOCYTES ABSOLUTE COUNT (BEAKER) (test 1.74 K/ L 1.18-3.74 ecls=436) MONOCYTES ABSOLUTE COUNT (BEAKER) (test 1.30 K/ L 0.24-0.36 iesw=343) EOSINOPHILS ABSOLUTE COUNT (BEAKER) (test 0.29 K/ L 0.04-0.36 kvcs=922) BASOPHILS ABSOLUTE COUNT (BEAKER) (test 0.04 K/ L 0.01-0.08 fuyk=711) IMMATURE GRANULOCYTES-RELATIVE PERCENT (BEAKER) 1 % 0-1 (test qiku=3216) BASIC METABOLIC [id number] 04:26:00 Test Item Value Reference Range Comments SODIUM (BEAKER) (test 145 meq/L 136-145 cdbm=955) POTASSIUM (BEAKER) (test 4.0 meq/L 3.5-5.1 tqkw=229) CHLORIDE (BEAKER) (test 109 meq/L 98-107 fric=388) CO2 (BEAKER) (test 29 meq/L 22-29 gosm=562) BLOOD UREA NITROGEN 34 mg/dL 7-21 (BEAKER) (test jvws=768) CREATININE (BEAKER) (test 0.54 mg/dL 0.57-1.25 nfzc=336) GLUCOSE RANDOM (BEAKER) 117 mg/dL 70-105 (test xmdv=050) CALCIUM (BEAKER) (test 7.8 mg/dL 8.4-10.2 wvla=706) EGFR (BEAKER) (test 116 mL/min/1.73 sq m ESTIMATED GFR IS NOT btbl=6693) ACCURATE CREATININE CLEARANCE IN PREDICTING GLOMERULAR FILTRATION RATE. ESTIMATED GFR IS NOT APPLICABLE FOR DIALYSIS PATIENTS. [id number] 04:22:00 Test Item Value Reference Range Comments PHOSPHORUS (BEAKER) (test hwel=635) 2.3 mg/dL 2.3-4.7 [id number] 04:22:00 Test Item Value Reference Range Comments MAGNESIUM (BEAKER) (test lohp=091) 1.7 mg/dL 1.6-2.6 PROTHROMBIN [id number] 21:51:00 Test Item Value Reference Range Comments PROTIME (BEAKER) (test xlxp=846) 23.3 seconds 11.7-14.7 INR (BEAKER) (test xfsu=536) 2.1 <=5.9 RECOMMENDED COUMADIN/WARFARIN INR THERAPY RANGESSTANDARD DOSE: 2.0 - 3.0 Includes: PROPHYLAXIS forvenous thrombosis, systemic embolization; TREATMENT for venous thrombosis and/or pulmonary embolus.HIGH RISK: Target INR is 2.5-3.5 for patients with mechanical heart valves.POCT-GLUCOSE [id number] 18:30:00 Test Item Value Reference Range Comments POC-GLUCOSE METER (BEAKER) 151 mg/dL 70-[address] [facility] [address] [facility] (test swbt=3382) [facility] [address] POCT-GLUCOSE [id number] 11:57:00 Test Item Value Reference Range Comments POC-GLUCOSE METER (BEAKER) 174 mg/dL 70-110 TESTED AT [place] [id number] [facility] (test rpas=9262) [facility] [address] PROTHROMBIN [id number] 11:40:00 Test Item Value Reference Range Comments PROTIME (BEAKER) (test hshx=778) 20.8 seconds 11.7-14.7 INR (BEAKER) (test xrmh=364) 1.8 <=5.9 RECOMMENDED COUMADIN/WARFARIN INR THERAPY RANGESSTANDARD DOSE: 2.0 - 3.0 Includes: PROPHYLAXIS forvenous thrombosis, systemic embolization; TREATMENT for venous thrombosis and/or pulmonary embolus.HIGH RISK: Target INR is 2.5-3.5 for patients with mechanical heart valves.CBC W/PLT COUNT & AUTO [id number] 11:32:00 Test Item Value Reference Range Comments WHITE BLOOD CELL COUNT (BEAKER) (test cbhq=859) 28.8 K/ L 3.5-10.5 RED BLOOD CELL COUNT (BEAKER) (test nmod=460) 3.77 M/ L 3.93-5.22 HEMOGLOBIN (BEAKER) (test lneo=992) 11.1 GM/DL 11.2-15.7 HEMATOCRIT (BEAKER) (test zeem=816) 34.0 % 34.1-44.9 MEAN CORPUSCULAR VOLUME (BEAKER) (test aovb=880) 90.2 fL 79.4-94.8 MEAN CORPUSCULAR HEMOGLOBIN (BEAKER) (test 29.4 pg 25.6-32.2 lucj=742) MEAN CORPUSCULAR HEMOGLOBIN CONC (BEAKER) (test 32.6 GM/DL 32.2-35.5 gehs=345) RED CELL DISTRIBUTION WIDTH (BEAKER) (test 15.9 % 11.7-14.4 xycr=748) PLATELET COUNT (BEAKER) (test qozp=392) 162 K/CU MM 150-450 MEAN PLATELET VOLUME (BEAKER) (test lgkt=914) 11.0 fL 9.4-12.3 NUCLEATED RED BLOOD CELLS (BEAKER) (test 0 /100 WBC 0-0 tnly=970) NEUTROPHILS RELATIVE PERCENT (BEAKER) (test 85 % vwve=099) LYMPHOCYTES RELATIVE PERCENT (BEAKER) (test 6 % dsus=427) MONOCYTES RELATIVE PERCENT (BEAKER) (test 5 % zlwo=964) EOSINOPHILS RELATIVE PERCENT (BEAKER) (test 1 % qwuh=764) BASOPHILS RELATIVE PERCENT (BEAKER) (test 0 % bdsb=117) NEUTROPHILS ABSOLUTE COUNT (BEAKER) (test 24.49 K/ L 1.56-6.13 bhlf=866) LYMPHOCYTES ABSOLUTE COUNT (BEAKER) (test 1.60 K/ L 1.18-3.74 yzec=409) MONOCYTES ABSOLUTE COUNT (BEAKER) (test 1.54 K/ L 0.24-0.36 wkxf=432) EOSINOPHILS ABSOLUTE COUNT (BEAKER) (test 0.22 K/ L 0.04-0.36 jsnw=499) BASOPHILS ABSOLUTE COUNT (BEAKER) (test 0.09 K/ L 0.01-0.08 ibpj=071) IMMATURE GRANULOCYTES-RELATIVE PERCENT (BEAKER) 3 % 0-1 (test pwzz=2603) (MANUAL DIFFERENTIAL)2017-11-12 11:32:00 Test Item Value Reference Range Comments TOTAL COUNTED (BEAKER) (test qwjr=2853) WBC MORPHOLOGY (BEAKER) (test qwsa=700) Normal PLT MORPHOLOGY (BEAKER) (test nwux=035) Normal ANISOCYTOSIS (BEAKER) (test dnkn=004) 1+ few POIKILOCYTES (BEAKER) (test crnb=922) 1+ few HEMOGLOBIN AND [id number] 11:24:00 Test Item Value Reference Range Comments HEMOGLOBIN (BEAKER) (test myjv=096) 9.9 GM/DL 11.2-15.7 HEMATOCRIT (BEAKER) (test ryrq=221) 31.0 % 34.1-44.9 VANCOMYCIN LEVEL, [id number] 09:40:00 Test Item Value Reference Range Comments VANCOMYCIN TROUGH (BEAKER) (test bwqp=860) 14.4 ug/mL 10.0-20.0 CALCIUM, [id number] 06:27:00 Test Item Value Reference Range Comments CALCIUM IONIZED (BEAKER) (test wdzf=035) 1.11 mmol/L 1.12-1.27 PH, BLOOD (BEAKER) (test twjh=6094) 7.49 POCT-GLUCOSE [id number] 06:26:00 Test Item Value Reference Range Comments POC-GLUCOSE METER (BEAKER) 190 mg/dL 70-110 TESTED AT [address] (test jqfo=9909) [facility] [address] BASIC METABOLIC [id number] 06:21:00 Test Item Value Reference Range Comments SODIUM (BEAKER) (test 144 meq/L 136-145 buhx=435) POTASSIUM (BEAKER) (test 3.4 meq/L 3.5-5.1 dpsz=752) CHLORIDE (BEAKER) (test 106 meq/L 98-107 rnut=492) CO2 (BEAKER) (test 28 meq/L 22-29 riic=594) BLOOD UREA NITROGEN 28 mg/dL 7-21 (BEAKER) (test xguv=911) CREATININE (BEAKER) (test 0.53 mg/dL 0.57-1.25 qdhu=925) GLUCOSE RANDOM (BEAKER) 158 mg/dL 70-105 (test ieep=395) CALCIUM (BEAKER) (test 7.5 mg/dL 8.4-10.2 yemj=188) EGFR (BEAKER) (test 118 mL/min/1.73 sq m ESTIMATED GFR IS NOT cfad=2255) ACCURATE CREATININE CLEARANCE IN PREDICTING GLOMERULAR FILTRATION RATE. ESTIMATED GFR IS NOT APPLICABLE FOR DIALYSIS PATIENTS. [id number] 06:15:00 Test Item Value Reference Range Comments PHOSPHORUS (BEAKER) (test idsq=165) 3.1 mg/dL 2.3-4.7 [id number] 06:15:00 Test Item Value Reference Range Comments MAGNESIUM (BEAKER) (test keln=328) 2.0 mg/dL 1.6-2.6 HEMOGLOBIN AND [id number] 00:22:00 Test Item Value Reference Range Comments HEMOGLOBIN (BEAKER) (test llug=729) 11.0 GM/DL 11.2-15.7 HEMATOCRIT (BEAKER) (test bjpo=898) 32.8 % 34.1-44.9 POCT-GLUCOSE [id number] 00:14:00 Test Item Value Reference Range Comments POC-GLUCOSE METER (BEAKER) 143 mg/dL 70-110 TESTED AT [address] (test neeo=5220) [facility] [address] PROTHROMBIN [id number] 21:48:00 Test Item Value Reference Range Comments PROTIME (BEAKER) (test gewn=607) 18.6 seconds 11.7-14.7 INR (BEAKER) (test ptio=754) 1.6 <=5.9 RECOMMENDED COUMADIN/WARFARIN INR THERAPY RANGESSTANDARD DOSE: 2.0 - 3.0 Includes: PROPHYLAXIS forvenous thrombosis, systemic embolization; TREATMENT for venous thrombosis and/or pulmonary embolus.HIGH RISK: Target INR is 2.5-3.5 for patients with mechanical heart valves.HEMOGLOBIN AND [id number] 18 :10:00 Test Item Value Reference Range Comments HEMOGLOBIN (BEAKER) (test hbiz=207) 11.3 GM/DL 11.2-15.7 HEMATOCRIT (BEAKER) (test xgmr=952) 33.3 % 34.1-44.9 POCT-GLUCOSE [id number] 18:06:00 Test Item Value Reference Range Comments POC-GLUCOSE METER (BEAKER) 207 mg/dL 70-[address] [facility] [address] (test ulqy=8065) [facility] [address] RAD, CHEST, 1 VIEW, NON [id number] 15:51:00Reason for exam:->check picc placement Should this [...] MDReport Verified Date/Time: 11/11/2017 15:51:54 Reading Location: [facility] [id number] Consult Reading Room BASIC METABOLIC [id number] 15:41:00 Test Item Value Reference Range Comments SODIUM (BEAKER) (test 144 meq/L 136-145 jvdp=512) POTASSIUM (BEAKER) (test 3.6 meq/L 3.5-5.1 igen=968) CHLORIDE (BEAKER) (test 110 meq/L 98-107 dekg=631) CO2 (BEAKER) (test 26 meq/L 22-29 xlwc=754) BLOOD UREA NITROGEN 32 mg/dL 7-21 (BEAKER) (test qkih=346) CREATININE (BEAKER) (test 0.56 mg/dL 0.57-1.25 tbrw=707) GLUCOSE RANDOM (BEAKER) 214 mg/dL 70-105 (test wdtv=734) CALCIUM (BEAKER) (test 7.7 mg/dL 8.4-10.2 plrf=495) EGFR (BEAKER) (test 111 mL/min/1.73 sq m ESTIMATED GFR IS NOT veff=4400) ACCURATE CREATININE CLEARANCE IN PREDICTING GLOMERULAR FILTRATION RATE. ESTIMATED GFR IS NOT APPLICABLE FOR DIALYSIS PATIENTS. [id number] 15:30:00 Test Item Value Reference Range Comments PHOSPHORUS (BEAKER) (test tpnm=441) 2.0 mg/dL 2.3-4.7 [id number] 15:30:00 Test Item Value Reference Range Comments MAGNESIUM (BEAKER) (test ycho=514) 1.6 mg/dL 1.6-2.6 HEMOGLOBIN AND [id number] 12:57:00 Test Item Value Reference Range Comments HEMOGLOBIN (BEAKER) (test qdlt=484) 12.1 GM/DL 11.2-15.7 HEMATOCRIT (BEAKER) (test sppj=310) 35.6 % 34.1-44.9 POCT-GLUCOSE [id number] 11:30:00 Test Item Value Reference Range Comments POC-GLUCOSE METER (BEAKER) 190 mg/dL 70-110 TESTED AT [address] (test aotq=6285) [facility] [address] PROTHROMBIN [id number] 08:25:00 Test Item Value Reference Range Comments PROTIME (BEAKER) (test bptz=687) 20.5 seconds 11.7-14.7 INR (BEAKER) (test acng=793) 1.8 <=5.9 RECOMMENDED COUMADIN/WARFARIN INR THERAPY RANGESSTANDARD DOSE: 2.0 - 3.0 Includes: PROPHYLAXIS forvenous thrombosis, systemic embolization; TREATMENT for venous thrombosis and/or pulmonary embolus.HIGH RISK: Target INR is 2.5-3.5 for patients with mechanical heart valves.POCT-GLUCOSE [id number] 06:16:00 Test Item Value Reference Range Comments POC-GLUCOSE METER (BEAKER) 161 mg/dL 70-[address] [facility] [address] [place] [address] (test njkk=7106) [facility] [address] CALCIUM, [id number] 04:22:00 Test Item Value Reference Range Comments CALCIUM IONIZED (BEAKER) (test tkzo=575) 1.12 mmol/L 1.12-1.27 PH, BLOOD (BEAKER) (test nryr=0023) 7.43 [id number] 04:03:00 Test Item Value Reference Range Comments PREALBUMIN (BEAKER) (test ntau=213) 17 mg/dL 14-45 PROTHROMBIN [id number] 04:02:00 Test Item Value Reference Range Comments PROTIME (BEAKER) (test nvgf=966) 19.0 seconds 11.7-14.7 INR (BEAKER) (test opjq=325) 1.6 <=5.9 RECOMMENDED COUMADIN/WARFARIN INR THERAPY RANGESSTANDARD DOSE: 2.0 - 3.0 Includes: PROPHYLAXIS forvenous thrombosis, systemic embolization; TREATMENT for venous thrombosis and/or pulmonary embolus.HIGH RISK: Target INR is 2.5-3.5 for patients with mechanical heart valves.[id number] 04:02:00 Test Item Value Reference Range Comments PROTIME (BEAKER) (test deee=947) 19.0 seconds 11.7-14.7 INR (BEAKER) (test xwtd=050) 1.6 <=5.9 PARTIAL THROMBOPLASTIN TIME (BEAKER) (test 34.3 seconds 22.5-36.0 wkxn=267) RECOMMENDED COUMADIN/WARFARIN INR THERAPY RANGESSTANDARD DOSE: 2.0 - 3.0 Includes: PROPHYLAXIS forvenous thrombosis, systemic embolization; TREATMENT for venous thrombosis and/or pulmonary embolus.HIGH RISK: Target INR is 2.5-3.5 for patients with mechanical heart valves.[id number] 04:02:00 Test Item Value Reference Range Comments PHOSPHORUS (BEAKER) (test vvkr=750) 2.5 mg/dL 2.3-4.7 [id number] 04:02:00 Test Item Value Reference Range Comments MAGNESIUM (BEAKER) (test bcqh=554) 2.1 mg/dL 1.6-2.6 BASIC METABOLIC [id number] 04:02:00 Test Item Value Reference Range Comments SODIUM (BEAKER) (test 146 meq/L 136-145 pajd=167) POTASSIUM (BEAKER) (test 3.8 meq/L 3.5-5.1 vyjy=147) CHLORIDE (BEAKER) (test 111 meq/L 98-107 syql=276) CO2 (BEAKER) (test 27 meq/L 22-29 bjtz=831) BLOOD UREA NITROGEN 37 mg/dL 7-21 (BEAKER) (test fxwe=035) CREATININE (BEAKER) (test 0.57 mg/dL 0.57-1.25 jwtx=417) GLUCOSE RANDOM (BEAKER) 157 mg/dL 70-105 (test sjjh=527) CALCIUM (BEAKER) (test 8.0 mg/dL 8.4-10.2 erqa=196) EGFR (BEAKER) (test 109 mL/min/1.73 sq m ESTIMATED GFR IS NOT pnvc=5629) ACCURATE CREATININE CLEARANCE IN PREDICTING GLOMERULAR FILTRATION RATE. ESTIMATED GFR IS NOT APPLICABLE FOR DIALYSIS PATIENTS. CBC W/PLT COUNT & AUTO [id number] 03:50:00 Test Item Value Reference Range Comments WHITE BLOOD CELL COUNT (BEAKER) (test iorh=779) 23.8 K/ L 3.5-10.5 RED BLOOD CELL COUNT (BEAKER) (test nbtd=847) 4.17 M/ L 3.93-5.22 HEMOGLOBIN (BEAKER) (test fnaa=313) 12.4 GM/DL 11.2-15.7 HEMATOCRIT (BEAKER) (test skbd=794) 36.9 % 34.1-44.9 MEAN CORPUSCULAR VOLUME (BEAKER) (test fdvy=286) 88.5 fL 79.4-94.8 MEAN CORPUSCULAR HEMOGLOBIN (BEAKER) (test 29.7 pg 25.6-32.2 utzn=263) MEAN CORPUSCULAR HEMOGLOBIN CONC (BEAKER) (test 33.6 GM/DL 32.2-35.5 gzao=110) RED CELL DISTRIBUTION WIDTH (BEAKER) (test 16.1 % 11.7-14.4 bsex=033) PLATELET COUNT (BEAKER) (test slsu=102) 168 K/CU MM 150-450 MEAN PLATELET VOLUME (BEAKER) (test pixt=264) 10.3 fL 9.4-12.3 NUCLEATED RED BLOOD CELLS (BEAKER) (test 0 /100 WBC 0-0 fiym=001) NEUTROPHILS RELATIVE PERCENT (BEAKER) (test 84 % nclh=024) LYMPHOCYTES RELATIVE PERCENT (BEAKER) (test 6 % ninc=073) MONOCYTES RELATIVE PERCENT (BEAKER) (test 7 % kybz=190) EOSINOPHILS RELATIVE PERCENT (BEAKER) (test 0 % nxin=882) BASOPHILS RELATIVE PERCENT (BEAKER) (test 0 % rjns=143) NEUTROPHILS ABSOLUTE COUNT (BEAKER) (test 19.98 K/ L 1.56-6.13 rddi=562) LYMPHOCYTES ABSOLUTE COUNT (BEAKER) (test 1.42 K/ L 1.18-3.74 ypuv=031) MONOCYTES ABSOLUTE COUNT (BEAKER) (test 1.75 K/ L 0.24-0.36 kjkb=195) EOSINOPHILS ABSOLUTE COUNT (BEAKER) (test 0.08 K/ L 0.04-0.36 hjal=849) BASOPHILS ABSOLUTE COUNT (BEAKER) (test 0.05 K/ L 0.01-0.08 qgmp=549) IMMATURE GRANULOCYTES-RELATIVE PERCENT (BEAKER) 2 % 0-1 (test wyij=8687) HEMOGLOBIN AND [id number] 03:48:00 Test Item Value Reference Range Comments HEMOGLOBIN (BEAKER) (test jsrf=363) 12.4 GM/DL 11.2-15.7 HEMATOCRIT (BEAKER) (test tnne=529) 36.9 % 34.1-44.9 HEMOGLOBIN AND [id number] 23:58:00 Test Item Value Reference Range Comments HEMOGLOBIN (BEAKER) (test ibey=454) 12.2 GM/DL 11.2-15.7 HEMATOCRIT (BEAKER) (test zdvw=540) 35.6 % 34.1-44.9 POCT-GLUCOSE [id number] 23:53:00 Test Item Value Reference Range Comments POC-GLUCOSE METER (BEAKER) 165 mg/dL 70-110 TESTED AT [address] (test ozls=5096) [place] [address] PROTHROMBIN [id number] 20:21:00 Test Item Value Reference Range Comments PROTIME (BEAKER) (test mkiz=407) 19.6 seconds 11.7-14.7 INR (BEAKER) (test yyte=740) 1.7 <=5.9 RECOMMENDED COUMADIN/WARFARIN INR THERAPY RANGESSTANDARD DOSE: 2.0 - 3.0 Includes: PROPHYLAXIS forvenous thrombosis, systemic embolization; TREATMENT for venous thrombosis and/or pulmonary embolus.HIGH RISK: Target INR is 2.5-3.5 for patients with mechanical heart valves.POCT-GLUCOSE [id number] 18:48:00 Test Item Value Reference Range Comments POC-GLUCOSE METER (BEAKER) 138 mg/dL 70-110 TESTED AT [address] (test ghmz=7271) [place] [address] HEMOGLOBIN AND [id number] 17:47:00 Test Item Value Reference Range Comments HEMOGLOBIN (BEAKER) (test vaem=199) 12.2 GM/DL 11.2-15.7 HEMATOCRIT (BEAKER) (test pdsz=063) 35.7 % 34.1-44.9 [id number] 16:02:00 Test Item Value Reference Range Comments PHOSPHORUS (BEAKER) (test ltda=572) 1.3 mg/dL 2.3-4.7 [id number] 15:53:00 Test Item Value Reference Range Comments MAGNESIUM (BEAKER) (test hibu=020) 1.8 mg/dL 1.6-2.6 BASIC METABOLIC [id number] 15:53:00 Test Item Value Reference Range Comments SODIUM (BEAKER) (test 144 meq/L 136-145 pqsb=828) POTASSIUM (BEAKER) (test 3.4 meq/L 3.5-5.1 zock=920) CHLORIDE (BEAKER) (test 110 meq/L 98-107 ixtx=254) CO2 (BEAKER) (test 26 meq/L 22-29 oexl=412) BLOOD UREA NITROGEN 42 mg/dL 7-21 (BEAKER) (test rris=814) CREATININE (BEAKER) (test 0.61 mg/dL 0.57-1.25 qgdl=649) GLUCOSE RANDOM (BEAKER) 201 mg/dL 70-105 (test ijjp=645) CALCIUM (BEAKER) (test 8.1 mg/dL 8.4-10.2 atsl=047) EGFR (BEAKER) (test 100 mL/min/1.73 sq m ESTIMATED GFR IS NOT qiqi=5963) ACCURATE CREATININE CLEARANCE IN PREDICTING GLOMERULAR FILTRATION RATE. ESTIMATED GFR IS NOT APPLICABLE FOR DIALYSIS PATIENTS. BLOOD GAS, [id number] 13:15:00 Test Item Value Reference Range Comments PH ARTERIAL (BEAKER) (test uhir=621) 7.53 7.35-7.45 PCO2 ARTERIAL (BEAKER) (test uhlb=759) 30 mmHg 35-45 PO2 ARTERIAL (BEAKER) (test taej=089) 96 mmHg 80-90 O2 SATURATION ARTERIAL (BEAKER) (test wagt=302) 97.9 % 96.0-97.0 HCO3 ARTERIAL (BEAKER) (test egqt=581) 24 mmol/L 21-29 BASE EXCESS ARTERIAL (BEAKER) (test hscj=484) 2.3 mmol/L -2.0-3.0 PATIENT TEMPERATURE (BEAKER) (test qffn=0935) 37.5 C FIO2 (BEAKER) (test vphi=8209) 40.0 % SURGICALLY OBTAINED CULTURE + GRAM [id number] 11:44:00 Test Item Value Reference Range Comments CULTURE (BEAKER) (test gieh=0035) Amikacin (test code=1) Aztreonam (test code=32) Cefepime (test code=51) Ceftazidime (test code=27) Ciprofloxacin (test code=7) Doripenem (test wvae=333) Gentamicin (test code=18) Imipenem (test code=19) Levofloxacin (test code=22) Meropenem (test code=34) Piperacillin (test code=24) Piperacillin + Tazobactam (test code=29) Tobramycin (test code=25) CULTURE (BEAKER) (test 1+ Pseudomonas pmtl=7840) aeruginosa CULTURE (BEAKER) (test 1+ Maryanne albicans vcvr=1822) CULTURE (BEAKER) (test 1+ Maryanne tropicalis pitb=5495) GRAM STAIN RESULT (BEAKER) 1+ WBCs (test uncx=2563) GRAM STAIN RESULT (BEAKER) No organisms seen (test iopq=585222) POCT-GLUCOSE [id number] 11:40:00 Test Item Value Reference Range Comments POC-GLUCOSE METER (BEAKER) 156 mg/dL 70-110 TESTED AT [address] (test bxhq=7697) [facility] [address] BASIC METABOLIC [id number] 11:38:00 Test Item Value Reference Range Comments SODIUM (BEAKER) (test 144 meq/L 136-145 pqni=142) POTASSIUM (BEAKER) (test 2.8 meq/L 3.5-5.1 Specimen slightly naab=019) hemolyzed CHLORIDE (BEAKER) (test 111 meq/L 98-107 eshz=863) CO2 (BEAKER) (test 26 meq/L 22-29 hisf=075) BLOOD UREA NITROGEN 47 mg/dL 7-21 (BEAKER) (test ahxg=807) CREATININE (BEAKER) (test 0.60 mg/dL 0.57-1.25 Specimen slightly zodz=320) hemolyzed GLUCOSE RANDOM (BEAKER) 184 mg/dL 70-105 (test etdv=844) CALCIUM (BEAKER) (test 7.9 mg/dL 8.4-10.2 pxwp=122) EGFR (BEAKER) (test 102 mL/min/1.73 sq m ESTIMATED GFR IS NOT mflu=5741) ACCURATE CREATININE CLEARANCE IN PREDICTING GLOMERULAR FILTRATION RATE. ESTIMATED GFR IS NOT APPLICABLE FOR DIALYSIS PATIENTS. PROTHROMBIN [id number] 11:14:00 Test Item Value Reference Range Comments PROTIME (BEAKER) (test edsg=249) 18.3 seconds 11.7-14.7 INR (BEAKER) (test zwzk=492) 1.5 <=5.9 RECOMMENDED COUMADIN/WARFARIN INR THERAPY RANGESSTANDARD DOSE: 2.0 - 3.0 Includes: PROPHYLAXIS forvenous thrombosis, systemic embolization; TREATMENT for venous thrombosis and/or pulmonary embolus.HIGH RISK: Target INR is 2.5-3.5 for patients with mechanical heart valves.HEMOGLOBIN AND [id number] 11 :13:00 Test Item Value Reference Range Comments HEMOGLOBIN (BEAKER) (test ldmz=242) 12.0 GM/DL 11.2-15.7 HEMATOCRIT (BEAKER) (test vspi=426) 35.9 % 34.1-44.9 [id number] 08:46:00 Test Item Value Reference Range Comments FIBRINOGEN LEVEL (BEAKER) (test zxco=924) 172 mg/dl 225-434 PT/[id number] 08:41:00 Test Item Value Reference Range Comments PROTIME (BEAKER) (test xkxa=169) 20.9 seconds 11.7-14.7 INR (BEAKER) (test ukoi=217) 1.8 <=5.9 PARTIAL THROMBOPLASTIN TIME (BEAKER) (test 35.3 seconds 22.5-36.0 mezu=990) RECOMMENDED COUMADIN/WARFARIN INR THERAPY RANGESSTANDARD DOSE: 2.0 - 3.0 Includes: PROPHYLAXIS forvenous thrombosis, systemic embolization; TREATMENT for venous thrombosis and/or pulmonary embolus.HIGH RISK: Target INR is 2.5-3.5 for patients with mechanical heart valves.BLOOD GAS, [id number] 08:33:00 Test Item Value Reference Range Comments PH ARTERIAL (BEAKER) (test jcgu=253) 7.38 7.35-7.45 PCO2 ARTERIAL (BEAKER) (test vmnk=226) 49 mmHg 35-45 PO2 ARTERIAL (BEAKER) (test qeib=198) 210 mmHg 80-90 O2 SATURATION ARTERIAL (BEAKER) (test eesa=151) 99.4 % 96.0-97.0 HCO3 ARTERIAL (BEAKER) (test hxuv=917) 28 mmol/L 21-29 BASE EXCESS ARTERIAL (BEAKER) (test tqxw=604) 2.8 mmol/L -2.0-3.0 PATIENT TEMPERATURE (BEAKER) (test vjqp=5039) 37.0 C FIO2 (BEAKER) (test ccst=1948) 100.0 % GLUCOSE-STAT [id number] 08:33:00 Test Item Value Reference Range Comments GLUCOSE RANDOM (BEAKER) (test mfra=991) 152 mg/dL 70-110 POTASSIUM-STAT [id number] 08:33:00 Test Item Value Reference Range Comments POTASSIUM (BEAKER) (test zofd=540) 3.1 meq/L 3.6-5.5 HGB/HCT (H&H) - STAT [id number] 08:33:00 Test Item Value Reference Range Comments HEMOGLOBIN (BEAKER) (test skmn=960) 6.9 g/dL 12.0-15.0 HEMATOCRIT (BEAKER) (test jxod=628) 20.0 % 36.0-45.0 CALCIUM, [id number] 08:28:00 Test Item Value Reference Range Comments CALCIUM IONIZED (BEAKER) (test arsr=611) 1.11 mmol/L 1.12-1.27 PH, BLOOD (BEAKER) (test iyaa=5439) 7.38 SODIUM NA-STAT [id number] 08:26:00 Test Item Value Reference Range Comments SODIUM (BEAKER) (test ybuu=800) 139 meq/L 135-148 VANCOMYCIN LEVEL, [id number] 07:50:00 Test Item Value Reference Range Comments VANCOMYCIN TROUGH (BEAKER) (test pvaw=094) 17.2 ug/mL 10.0-20.0 Please draw 30 minutes prior to vancomycin due time. Do not administer if vancomycin trough is >20 mcg/mL. Thank you!POCT-GLUCOSE [id number] 06:16 :00 Test Item Value Reference Range Comments POC-GLUCOSE METER (BEAKER) 188 mg/dL 70-[address] [facility] [address] (test zkkc=8241) [place] [address] PROTHROMBIN [id number] 06:02:00 Test Item Value Reference Range Comments PROTIME (BEAKER) (test nfxu=068) 18.9 seconds 11.7-14.7 INR (BEAKER) (test uklp=089) 1.6 <=5.9 RECOMMENDED COUMADIN/WARFARIN INR THERAPY RANGESSTANDARD DOSE: 2.0 - 3.0 Includes: PROPHYLAXIS forvenous thrombosis, systemic embolization; TREATMENT for venous thrombosis and/or pulmonary embolus.HIGH RISK: Target INR is 2.5-3.5 for patients with mechanical heart valves.CALCIUM, [id number] 04:50:00 Test Item Value Reference Range Comments CALCIUM IONIZED (BEAKER) (test pemm=650) 1.16 mmol/L 1.12-1.27 PH, BLOOD (BEAKER) (test tqpv=3641) 7.45 CBC W/PLT COUNT & AUTO [id number] 04:43:00 Test Item Value Reference Range Comments WHITE BLOOD CELL COUNT (BEAKER) (test xmth=602) 19.2 K/ L 3.5-10.5 RED BLOOD CELL COUNT (BEAKER) (test rgxv=550) 2.17 M/ L 3.93-5.22 HEMOGLOBIN (BEAKER) (test zvsk=171) 6.6 GM/DL 11.2-15.7 HEMATOCRIT (BEAKER) (test jack=693) 20.6 % 34.1-44.9 MEAN CORPUSCULAR VOLUME (BEAKER) (test jfmq=272) 94.9 fL 79.4-94.8 MEAN CORPUSCULAR HEMOGLOBIN (BEAKER) (test 30.4 pg 25.6-32.2 cqzl=345) MEAN CORPUSCULAR HEMOGLOBIN CONC (BEAKER) (test 32.0 GM/DL 32.2-35.5 cmwf=774) RED CELL DISTRIBUTION WIDTH (BEAKER) (test 15.5 % 11.7-14.4 rcax=040) PLATELET COUNT (BEAKER) (test imhc=465) 217 K/CU MM 150-450 MEAN PLATELET VOLUME (BEAKER) (test vxya=679) 10.4 fL 9.4-12.3 NUCLEATED RED BLOOD CELLS (BEAKER) (test 0 /100 WBC 0-0 awau=566) NEUTROPHILS RELATIVE PERCENT (BEAKER) (test 83 % jdxp=957) LYMPHOCYTES RELATIVE PERCENT (BEAKER) (test 7 % ebrk=263) MONOCYTES RELATIVE PERCENT (BEAKER) (test 7 % oqsk=824) EOSINOPHILS RELATIVE PERCENT (BEAKER) (test 0 % cjks=682) BASOPHILS RELATIVE PERCENT (BEAKER) (test 0 % biik=143) NEUTROPHILS ABSOLUTE COUNT (BEAKER) (test 15.91 K/ L 1.56-6.13 zvwg=252) LYMPHOCYTES ABSOLUTE COUNT (BEAKER) (test 1.36 K/ L 1.18-3.74 nhou=254) MONOCYTES ABSOLUTE COUNT (BEAKER) (test 1.41 K/ L 0.24-0.36 wtsp=152) EOSINOPHILS ABSOLUTE COUNT (BEAKER) (test 0.01 K/ L 0.04-0.36 xcki=411) BASOPHILS ABSOLUTE COUNT (BEAKER) (test 0.02 K/ L 0.01-0.08 frih=718) IMMATURE GRANULOCYTES-RELATIVE PERCENT (BEAKER) 2 % 0-1 (test bwwb=5619) [id number] 04:31:00 Test Item Value Reference Range Comments PHOSPHORUS (BEAKER) (test nmvs=353) 2.2 mg/dL 2.3-4.7 [id number] 04:31:00 Test Item Value Reference Range Comments MAGNESIUM (BEAKER) (test bmxl=778) 1.9 mg/dL 1.6-2.6 BASIC METABOLIC [id number] 04:31:00 Test Item Value Reference Range Comments SODIUM (BEAKER) (test 146 meq/L 136-145 fkwr=440) POTASSIUM (BEAKER) (test 2.8 meq/L 3.5-5.1 cyqm=713) CHLORIDE (BEAKER) (test 109 meq/L 98-107 cjhz=145) CO2 (BEAKER) (test 29 meq/L 22-29 rtcz=362) BLOOD UREA NITROGEN 49 mg/dL 7-21 (BEAKER) (test igtx=091) CREATININE (BEAKER) (test 0.60 mg/dL 0.57-1.25 ummm=609) GLUCOSE RANDOM (BEAKER) 155 mg/dL 70-105 (test epke=388) CALCIUM (BEAKER) (test 8.1 mg/dL 8.4-10.2 eplb=567) EGFR (BEAKER) (test 102 mL/min/1.73 sq m ESTIMATED GFR IS NOT oejg=3445) ACCURATE CREATININE CLEARANCE IN PREDICTING GLOMERULAR FILTRATION RATE. ESTIMATED GFR IS NOT APPLICABLE FOR DIALYSIS PATIENTS. POCT-GLUCOSE [id number] 00:06:00 Test Item Value Reference Range Comments POC-GLUCOSE METER (BEAKER) 168 mg/dL 70-110 TESTED AT [address] (test cwcv=8858) [facility] [address] PROTHROMBIN [id number] 20:34:00 Test Item Value Reference Range Comments PROTIME (BEAKER) (test dqig=664) 17.1 seconds 11.7-14.7 INR (BEAKER) (test zauo=897) 1.4 <=5.9 RECOMMENDED COUMADIN/WARFARIN INR THERAPY RANGESSTANDARD DOSE: 2.0 - 3.0 Includes: PROPHYLAXIS forvenous thrombosis, systemic embolization; TREATMENT for venous thrombosis and/or pulmonary embolus.HIGH RISK: Target INR is 2.5-3.5 for patients with mechanical heart valves.HEMOGLOBIN AND [id number] 20 :29:00 Test Item Value Reference Range Comments HEMOGLOBIN (BEAKER) (test qlje=311) 8.8 GM/DL 11.2-15.7 HEMATOCRIT (BEAKER) (test xuor=621) 27.6 % 34.1-44.9 POCT-GLUCOSE [id number] 20:11:00 Test Item Value Reference Range Comments POC-GLUCOSE METER (BEAKER) 193 mg/dL 70-110 TESTED AT [address] (test ibug=0007) [place] [id number] TISSUE [id number] 17:28:00Surgical Pathology Report Case: [id number] Authorizing Provider: Saida Perkins MD Collected: 11/04/2017 1442 Ordering Location: [address] Received: 11/07/2017 0360 Cardiovascular Pathologist: Ze Truong MD Specimen: Small Bowel, NOS SMALL BOWEL, RESECTION: - NECROSIS ASSOCIATED WITH ACUTE AND CHRONIC INFLAMMATION, ULCERATION, COMPATIBLE WITH ISCHEMIC TYPE CHANGES (SEE COMMENT) - MARKED ACUTE AND ORGANIZING SEROSITIS WITH FOREIGN BODY GIANT CELL REACTION - NEGATIVE FOR FUNGAL ELEMENTS BY GMS STAIN - ONE REACTIVE LYMPH NODE Signing Pathologist Direct Phone Line: [phone] signed by Ze Truong MD on 2017 [...] on this case and concurs with the diagnosis.22559, 13416Sfbewivc bowel disease Small bowel The specimen is [...] sections of small bowel; A10, fat. CG/pl Performed.[id number] 15:08:00 Test Item Value Reference Range Comments MAGNESIUM (BEAKER) (test hfwf=015) 2.0 mg/dL 1.6-2.6 BASIC METABOLIC [id number] 15:08:00 Test Item Value Reference Range Comments SODIUM (BEAKER) (test 147 meq/L 136-145 eyqc=505) POTASSIUM (BEAKER) (test 3.5 meq/L 3.5-5.1 gabo=177) CHLORIDE (BEAKER) (test 110 meq/L 98-107 cuka=501) CO2 (BEAKER) (test 29 meq/L 22-29 hohs=127) BLOOD UREA NITROGEN 49 mg/dL 7-21 (BEAKER) (test iudz=338) CREATININE (BEAKER) (test 0.60 mg/dL 0.57-1.25 jczv=502) GLUCOSE RANDOM (BEAKER) 168 mg/dL 70-105 (test qzwl=745) CALCIUM (BEAKER) (test 8.2 mg/dL 8.4-10.2 lpfs=202) EGFR (BEAKER) (test 102 mL/min/1.73 sq m ESTIMATED GFR IS NOT ogmv=7893) ACCURATE CREATININE CLEARANCE IN PREDICTING GLOMERULAR FILTRATION RATE. ESTIMATED GFR IS NOT APPLICABLE FOR DIALYSIS PATIENTS. POCT-GLUCOSE [id number] 14:07:00 Test Item Value Reference Range Comments POC-GLUCOSE METER (BEAKER) 174 mg/dL 70-[address] [facility] [address] [facility] (test lukr=1178) [facility] [address] POCT-GLUCOSE [id number] 10:18:00 Test Item Value Reference Range Comments POC-GLUCOSE METER (BEAKER) 176 mg/dL 70-110 TESTED AT [address] (test xuam=8756) [facility] [address] PROTHROMBIN [id number] 09:40:00 Test Item Value Reference Range Comments PROTIME (BEAKER) (test qgpd=066) 18.7 seconds 11.7-14.7 INR (BEAKER) (test rjll=115) 1.6 <=5.9 RECOMMENDED COUMADIN/WARFARIN INR THERAPY RANGESSTANDARD DOSE: 2.0 - 3.0 Includes: PROPHYLAXIS forvenous thrombosis, systemic embolization; TREATMENT for venous thrombosis and/or pulmonary embolus.HIGH RISK: Target INR is 2.5-3.5 for patients with mechanical heart valves.HEMOGLOBIN AND [id number] 09 :27:00 Test Item Value Reference Range Comments HEMOGLOBIN (BEAKER) (test uijf=304) 8.9 GM/DL 11.2-15.7 HEMATOCRIT (BEAKER) (test jhmj=786) 27.6 % 34.1-44.9 SEDIMENTATION [id number] 09:18:00 Test Item Value Reference Range Comments SEDIMENTATION RATE, ERYTHROCYTE (BEAKER) (test 26 mm/HR 0-30 rwey=880) CALCIUM, [id number] 05:11:00 Test Item Value Reference Range Comments CALCIUM IONIZED (BEAKER) (test xkms=200) 1.19 mmol/L 1.12-1.27 PH, BLOOD (BEAKER) (test dzdi=7075) 7.41 CBC W/PLT COUNT & AUTO [id number] 04:46:00 Test Item Value Reference Range Comments WHITE BLOOD CELL COUNT (BEAKER) (test lydm=672) 17.4 K/ L 3.5-10.5 RED BLOOD CELL COUNT (BEAKER) (test dgpu=077) 2.81 M/ L 3.93-5.22 HEMOGLOBIN (BEAKER) (test kftj=211) 8.6 GM/DL 11.2-15.7 HEMATOCRIT (BEAKER) (test vmvk=053) 26.8 % 34.1-44.9 MEAN CORPUSCULAR VOLUME (BEAKER) (test hxri=982) 95.4 fL 79.4-94.8 MEAN CORPUSCULAR HEMOGLOBIN (BEAKER) (test 30.6 pg 25.6-32.2 yauf=915) MEAN CORPUSCULAR HEMOGLOBIN CONC (BEAKER) (test 32.1 GM/DL 32.2-35.5 cazj=289) RED CELL DISTRIBUTION WIDTH (BEAKER) (test 15.9 % 11.7-14.4 hhdi=289) PLATELET COUNT (BEAKER) (test oqxk=623) 225 K/CU MM 150-450 MEAN PLATELET VOLUME (BEAKER) (test xbdj=805) 10.6 fL 9.4-12.3 NUCLEATED RED BLOOD CELLS (BEAKER) (test 0 /100 WBC 0-0 ecjv=964) NEUTROPHILS RELATIVE PERCENT (BEAKER) (test 88 % gpen=216) LYMPHOCYTES RELATIVE PERCENT (BEAKER) (test 5 % bcqy=513) MONOCYTES RELATIVE PERCENT (BEAKER) (test 5 % crcv=918) EOSINOPHILS RELATIVE PERCENT (BEAKER) (test 0 % txvm=582) BASOPHILS RELATIVE PERCENT (BEAKER) (test 0 % fupe=491) NEUTROPHILS ABSOLUTE COUNT (BEAKER) (test 15.38 K/ L 1.56-6.13 bpzq=722) LYMPHOCYTES ABSOLUTE COUNT (BEAKER) (test 0.84 K/ L 1.18-3.74 hyai=612) MONOCYTES ABSOLUTE COUNT (BEAKER) (test 0.82 K/ L 0.24-0.36 wfej=455) EOSINOPHILS ABSOLUTE COUNT (BEAKER) (test 0.00 K/ L 0.04-0.36 xijh=002) BASOPHILS ABSOLUTE COUNT (BEAKER) (test 0.02 K/ L 0.01-0.08 xasq=033) IMMATURE GRANULOCYTES-RELATIVE PERCENT (BEAKER) 2 % 0-1 (test pkap=7098) [id number] 04:35:00 Test Item Value Reference Range Comments PHOSPHORUS (BEAKER) (test xjlp=777) 3.0 mg/dL 2.3-4.7 [id number] 04:35:00 Test Item Value Reference Range Comments MAGNESIUM (BEAKER) (test bpgd=440) 1.9 mg/dL 1.6-2.6 BASIC METABOLIC [id number] 04:35:00 Test Item Value Reference Range Comments SODIUM (BEAKER) (test 148 meq/L 136-145 bgai=751) POTASSIUM (BEAKER) (test 2.9 meq/L 3.5-5.1 fslj=876) CHLORIDE (BEAKER) (test 110 meq/L 98-107 fvfh=162) CO2 (BEAKER) (test 29 meq/L 22-29 oeyo=669) BLOOD UREA NITROGEN 54 mg/dL 7-21 (BEAKER) (test ohei=618) CREATININE (BEAKER) (test 0.64 mg/dL 0.57-1.25 aykl=774) GLUCOSE RANDOM (BEAKER) 165 mg/dL 70-105 (test ehzn=954) CALCIUM (BEAKER) (test 8.3 mg/dL 8.4-10.2 zcfh=372) EGFR (BEAKER) (test 95 mL/min/1.73 sq m ESTIMATED GFR IS NOT uiky=5551) ACCURATE CREATININE CLEARANCE IN PREDICTING GLOMERULAR FILTRATION RATE. ESTIMATED GFR IS NOT APPLICABLE FOR DIALYSIS PATIENTS. POCT-GLUCOSE [id number] 00:11:00 Test Item Value Reference Range Comments POC-GLUCOSE METER (BEAKER) 188 mg/dL 70-[address] [facility] [address] [facility] (test phsj=2313) [facility] [address] PROTHROMBIN TIME/[id number] 20:47:00 Test Item Value Reference Range Comments PROTIME (BEAKER) (test dpcu=811) 17.2 seconds 11.7-14.7 INR (BEAKER) (test ydcx=381) 1.4 <=5.9 RECOMMENDED COUMADIN/WARFARIN INR THERAPY RANGESSTANDARD DOSE: 2.0 - 3.0 Includes: PROPHYLAXIS forvenous thrombosis, systemic embolization; TREATMENT for venous thrombosis and/or pulmonary embolus.HIGH RISK: Target INR is 2.5-3.5 for patients with mechanical heart valves.HEMOGLOBIN AND [id number] 20 :41:00 Test Item Value Reference Range Comments HEMOGLOBIN (BEAKER) (test uzam=559) 8.5 GM/DL 11.2-15.7 HEMATOCRIT (BEAKER) (test pbbb=700) 26.0 % 34.1-44.9 POCT-GLUCOSE [id number] 18:26:00 Test Item Value Reference Range Comments POC-GLUCOSE METER (BEAKER) 151 mg/dL 70-[address] [facility] [address] [facility] (test gwnw=3837) [facility] [address] BASIC METABOLIC [id number] 15:46:00 Test Item Value Reference Range Comments SODIUM (BEAKER) (test 149 meq/L 136-145 cxff=899) POTASSIUM (BEAKER) (test 3.9 meq/L 3.5-5.1 yjgu=263) CHLORIDE (BEAKER) (test 114 meq/L 98-107 dqhk=670) CO2 (BEAKER) (test 26 meq/L 22-29 sixf=791) BLOOD UREA NITROGEN 65 mg/dL 7-21 (BEAKER) (test lrzp=772) CREATININE (BEAKER) (test 0.78 mg/dL 0.57-1.25 eqlg=989) GLUCOSE RANDOM (BEAKER) 177 mg/dL 70-105 (test nuag=283) CALCIUM (BEAKER) (test 8.4 mg/dL 8.4-10.2 wnlb=008) EGFR (BEAKER) (test 76 mL/min/1.73 sq m ESTIMATED GFR IS NOT uvgn=3399) ACCURATE CREATININE CLEARANCE IN PREDICTING GLOMERULAR FILTRATION RATE. ESTIMATED GFR IS NOT APPLICABLE FOR DIALYSIS PATIENTS. PROTHROMBIN TIME/[id number] 15:34:00 Test Item Value Reference Range Comments PROTIME (BEAKER) (test hwsz=988) 17.6 seconds 11.7-14.7 INR (BEAKER) (test pdxg=222) 1.5 <=5.9 RECOMMENDED COUMADIN/WARFARIN INR THERAPY RANGESSTANDARD DOSE: 2.0 - 3.0 Includes: PROPHYLAXIS forvenous thrombosis, systemic embolization; TREATMENT for venous thrombosis and/or pulmonary embolus.HIGH RISK: Target INR is 2.5-3.5 for patients with mechanical heart valves.HEMOGLOBIN AND [id number] 15 :27:00 Test Item Value Reference Range Comments HEMOGLOBIN (BEAKER) (test hedk=754) 8.6 GM/DL 11.2-15.7 HEMATOCRIT (BEAKER) (test fdft=992) 26.1 % 34.1-44.9 CMV PCR, [id number] 13:16:00 Test Item Value Reference Range Comments CMV VIRAL LOAD - NEGATIVE Negative or below the linear (BEAKER) (test mvte=9014) range of the assay (<375 copies/mL) Cytomegalovirus [...] and its performance characteristics determined by the [facility] Pathology Department, Section of Molecular Pathology. It has not been cleared or approved by the U.S. Food and Drug Administration (FDA), since FDA approval is not required for clinical use of the test. Validation was done as required by The Clinical Laboratory Improvement Amendments of 1988.POCT-GLUCOSE [id number] 12:45:00 Test Item Value Reference Range Comments POC-GLUCOSE METER (BEAKER) 213 mg/dL 70-110 TESTED AT [address] (test strd=1688) [facility] [address] RAD, CHEST, 1 VIEW, NON [id number] 09:02:00Reason for exam:->ETT placement verificationFINAL REPORT Chest [...] Verified Date/ Time: 11/08/2017 09:02:35 Reading Location: [facility] Radiology Reading Room POCT-GLUCOSE [id number] 06:36:00 Test Item Value Reference Range Comments POC-GLUCOSE METER (BEAKER) 197 mg/dL 70-110 TESTED AT [address] (test hlst=9444) [facility] [address] BLOOD GAS, [id number] 05:35:00 Test Item Value Reference Range Comments PH ARTERIAL (BEAKER) (test nzbl=684) 7.41 7.35-7.45 PCO2 ARTERIAL (BEAKER) (test ydij=530) 42 mmHg 35-45 PO2 ARTERIAL (BEAKER) (test tafh=699) 104 mmHg 80-90 O2 SATURATION ARTERIAL (BEAKER) (test cjzc=939) 97.8 % 96.0-97.0 HCO3 ARTERIAL (BEAKER) (test uviv=333) 26 mmol/L 21-29 BASE EXCESS ARTERIAL (BEAKER) (test fzka=810) 1.1 mmol/L -2.0-3.0 PATIENT TEMPERATURE (BEAKER) (test kcrg=2677) 37.0 C FIO2 (BEAKER) (test twrk=0118) 40.0 % CALCIUM, [id number] 05:19:00 Test Item Value Reference Range Comments CALCIUM IONIZED (BEAKER) (test yeqm=964) 1.24 mmol/L 1.12-1.27 PH, BLOOD (BEAKER) (test jqlx=7230) 7.41 [id number] 04:52:00 Test Item Value Reference Range Comments PHOSPHORUS (BEAKER) (test wnqn=690) 4.4 mg/dL 2.3-4.7 [id number] 04:52:00 Test Item Value Reference Range Comments MAGNESIUM (BEAKER) (test uqpy=855) 2.1 mg/dL 1.6-2.6 BASIC METABOLIC [id number] 04:52:00 Test Item Value Reference Range Comments SODIUM (BEAKER) (test 149 meq/L 136-145 tzru=422) POTASSIUM (BEAKER) (test 4.8 meq/L 3.5-5.1 vojs=274) CHLORIDE (BEAKER) (test 115 meq/L 98-107 amkc=184) CO2 (BEAKER) (test 24 meq/L 22-29 jxek=214) BLOOD UREA NITROGEN 69 mg/dL 7-21 (BEAKER) (test sval=100) CREATININE (BEAKER) (test 0.88 mg/dL 0.57-1.25 zpvc=443) GLUCOSE RANDOM (BEAKER) 180 mg/dL 70-105 (test qlwh=889) CALCIUM (BEAKER) (test 8.6 mg/dL 8.4-10.2 ufcj=582) EGFR (BEAKER) (test 66 mL/min/1.73 sq m ESTIMATED GFR IS NOT fxur=5820) ACCURATE CREATININE CLEARANCE IN PREDICTING GLOMERULAR FILTRATION RATE. ESTIMATED GFR IS NOT APPLICABLE FOR DIALYSIS PATIENTS. PROTHROMBIN [id number] 04:37:00 Test Item Value Reference Range Comments PROTIME (BEAKER) (test slpo=865) 21.0 seconds 11.7-14.7 INR (BEAKER) (test hgzv=883) 1.8 <=5.9 RECOMMENDED COUMADIN/WARFARIN INR THERAPY RANGESSTANDARD DOSE: 2.0 - 3.0 Includes: PROPHYLAXIS forvenous thrombosis, systemic embolization; TREATMENT for venous thrombosis and/or pulmonary embolus.HIGH RISK: Target INR is 2.5-3.5 for patients with mechanical heart valves.CBC W/PLT COUNT & AUTO [id number] 04:36:00 Test Item Value Reference Range Comments WHITE BLOOD CELL COUNT (BEAKER) (test dijc=962) 15.5 K/ L 3.5-10.5 RED BLOOD CELL COUNT (BEAKER) (test qwaz=687) 2.93 M/ L 3.93-5.22 HEMOGLOBIN (BEAKER) (test nefg=458) 9.1 GM/DL 11.2-15.7 HEMATOCRIT (BEAKER) (test habg=677) 27.4 % 34.1-44.9 MEAN CORPUSCULAR VOLUME (BEAKER) (test jffp=205) 93.5 fL 79.4-94.8 MEAN CORPUSCULAR HEMOGLOBIN (BEAKER) (test 31.1 pg 25.6-32.2 ljxw=708) MEAN CORPUSCULAR HEMOGLOBIN CONC (BEAKER) (test 33.2 GM/DL 32.2-35.5 bopb=334) RED CELL DISTRIBUTION WIDTH (BEAKER) (test 16.0 % 11.7-14.4 xekd=182) PLATELET COUNT (BEAKER) (test eaue=066) 211 K/CU MM 150-450 MEAN PLATELET VOLUME (BEAKER) (test nfva=493) 10.6 fL 9.4-12.3 NUCLEATED RED BLOOD CELLS (BEAKER) (test 0 /100 WBC 0-0 pwuy=867) NEUTROPHILS RELATIVE PERCENT (BEAKER) (test 87 % rfaa=705) LYMPHOCYTES RELATIVE PERCENT (BEAKER) (test 6 % qown=875) MONOCYTES RELATIVE PERCENT (BEAKER) (test 3 % utyr=736) EOSINOPHILS RELATIVE PERCENT (BEAKER) (test 0 % ulxu=683) BASOPHILS RELATIVE PERCENT (BEAKER) (test 0 % oeyg=299) NEUTROPHILS ABSOLUTE COUNT (BEAKER) (test 13.44 K/ L 1.56-6.13 ceea=854) LYMPHOCYTES ABSOLUTE COUNT (BEAKER) (test 0.97 K/ L 1.18-3.74 keoe=678) MONOCYTES ABSOLUTE COUNT (BEAKER) (test 0.40 K/ L 0.24-0.36 zoah=802) EOSINOPHILS ABSOLUTE COUNT (BEAKER) (test 0.00 K/ L 0.04-0.36 jhcx=457) BASOPHILS ABSOLUTE COUNT (BEAKER) (test 0.03 K/ L 0.01-0.08 qbny=958) IMMATURE GRANULOCYTES-RELATIVE PERCENT (BEAKER) 4 % 0-1 (test enzh=2369) HEMOGLOBIN AND [id number] 04:29:00 Test Item Value Reference Range Comments HEMOGLOBIN (BEAKER) (test xjag=125) 9.1 GM/DL 11.2-15.7 HEMATOCRIT (BEAKER) (test cvss=363) 27.4 % 34.1-44.9 POCT-GLUCOSE [id number] 00:24:00 Test Item Value Reference Range Comments POC-GLUCOSE METER (BEAKER) 221 mg/dL 70-110 TESTED AT [address] (test rpuz=3174) [facility] [id number] PROTHROMBIN [id number] 22:48:00 Test Item Value Reference Range Comments PROTIME (BEAKER) (test deah=877) 21.8 seconds 11.7-14.7 INR (BEAKER) (test qsrn=495) 1.9 <=5.9 RECOMMENDED COUMADIN/WARFARIN INR THERAPY RANGESSTANDARD DOSE: 2.0 - 3.0 Includes: PROPHYLAXIS forvenous thrombosis, systemic embolization; TREATMENT for venous thrombosis and/or pulmonary embolus.HIGH RISK: Target INR is 2.5-3.5 for patients with mechanical heart valves.HEMOGLOBIN AND [id number] 22 :41:00 Test Item Value Reference Range Comments HEMOGLOBIN (BEAKER) (test xpgk=175) 9.1 GM/DL 11.2-15.7 HEMATOCRIT (BEAKER) (test kiqn=734) 27.9 % 34.1-44.9 HIV-1 ANTIGEN WITH HIV-1/2 [id number] 20:14:00 Test Item Value Reference Range Comments HIV-1 ANTIGEN WITH HIV 1\\T\\2 ANTIBODY (2) Nonreactive Nonreactive (BEAKER) (test ykji=2915) POCT-GLUCOSE [id number] 18:39:00 Test Item Value Reference Range Comments POC-GLUCOSE METER (BEAKER) 152 mg/dL 70-110 TESTED AT [address] (test nxlw=6349) [facility] [facility] [address] PROTHROMBIN TIME/[id number] 17:42:00 Test Item Value Reference Range Comments PROTIME (BEAKER) (test dklq=487) 21.5 seconds 11.7-14.7 INR (BEAKER) (test dqxh=006) 1.9 <=5.9 RECOMMENDED COUMADIN/WARFARIN INR THERAPY RANGESSTANDARD DOSE: 2.0 - 3.0 Includes: PROPHYLAXIS forvenous thrombosis, systemic embolization; TREATMENT for venous thrombosis and/or pulmonary embolus.HIGH RISK: Target INR is 2.5-3.5 for patients with mechanical heart valves.HEMOGLOBIN AND [id number] 17 :33:00 Test Item Value Reference Range Comments HEMOGLOBIN (BEAKER) (test qzor=131) 9.2 GM/DL 11.2-15.7 HEMATOCRIT (BEAKER) (test jrnw=704) 27.9 % 34.1-44.9 BASIC METABOLIC [id number] 16:38:00 Test Item Value Reference Range Comments SODIUM (BEAKER) (test 148 meq/L 136-145 vlzo=542) POTASSIUM (BEAKER) (test 5.0 meq/L 3.5-5.1 ybgy=018) CHLORIDE (BEAKER) (test 117 meq/L 98-107 oeab=137) CO2 (BEAKER) (test 24 meq/L 22-29 fkeg=142) BLOOD UREA NITROGEN 57 mg/dL 7-21 (BEAKER) (test wabg=337) CREATININE (BEAKER) (test 0.78 mg/dL 0.57-1.25 dekt=265) GLUCOSE RANDOM (BEAKER) 175 mg/dL 70-105 (test ehgx=488) CALCIUM (BEAKER) (test 8.4 mg/dL 8.4-10.2 ctrc=591) EGFR (BEAKER) (test 76 mL/min/1.73 sq m ESTIMATED GFR IS NOT nhci=3408) ACCURATE CREATININE CLEARANCE IN PREDICTING GLOMERULAR FILTRATION RATE. ESTIMATED GFR IS NOT APPLICABLE FOR DIALYSIS PATIENTS. PROTHROMBIN [id number] 16:33:00 Test Item Value Reference Range Comments PROTIME (BEAKER) (test dsie=459) 21.3 seconds 11.7-14.7 INR (BEAKER) (test jqwx=107) 1.8 <=5.9 RECOMMENDED COUMADIN/WARFARIN INR THERAPY RANGESSTANDARD DOSE: 2.0 - 3.0 Includes: PROPHYLAXIS forvenous thrombosis, systemic embolization; TREATMENT for venous thrombosis and/or pulmonary embolus.HIGH RISK: Target INR is 2.5-3.5 for patients with mechanical heart valves.HEMOGLOBIN AND [id number] 16 :20:00 Test Item Value Reference Range Comments HEMOGLOBIN (BEAKER) (test ginh=651) 9.3 GM/DL 11.2-15.7 HEMATOCRIT (BEAKER) (test lfsq=684) 28.1 % 34.1-44.9 RAD, CHEST, 1 VIEW, NON [id number] 14:22:00Reason for exam:->ETT placement verificationFINAL REPORT AP chest HISTORY: Endotracheal tube placement COMPARISON: 11/05/2007 IMPRESSION:Supportive lines unchanged. Stable cardiac silhouette. Mild pulmonary vascular congestion. Small left effusion. No pneumothorax. Signed: Radha Machucaeport Verified Date/ Time: 11/07/2017 14:22:52 Reading Location: [facility] Reading Room POCT -GLUCOSE [id number] 12:08:00 Test Item Value Reference Range Comments POC-GLUCOSE METER (BEAKER) 168 mg/dL 70-[address] [facility] [address] [facility] (test almg=1528) [facility] [address] BASIC METABOLIC [id number] 11:57:00 Test Item Value Reference Range Comments SODIUM (BEAKER) (test 147 meq/L 136-145 ojae=785) POTASSIUM (BEAKER) (test 5.2 meq/L 3.5-5.1 cvom=854) CHLORIDE (BEAKER) (test 119 meq/L 98-107 uash=432) CO2 (BEAKER) (test 21 meq/L 22-29 kniv=153) BLOOD UREA NITROGEN 55 mg/dL 7-21 (BEAKER) (test ttac=032) CREATININE (BEAKER) (test 0.79 mg/dL 0.57-1.25 dvde=349) GLUCOSE RANDOM (BEAKER) 158 mg/dL 70-105 (test yhca=773) CALCIUM (BEAKER) (test 8.1 mg/dL 8.4-10.2 uhvq=443) EGFR (BEAKER) (test 74 mL/min/1.73 sq m ESTIMATED GFR IS NOT nnqz=0134) ACCURATE CREATININE CLEARANCE IN PREDICTING GLOMERULAR FILTRATION RATE. ESTIMATED GFR IS NOT APPLICABLE FOR DIALYSIS PATIENTS. HEMOGLOBIN AND [id number] 11:36:00 Test Item Value Reference Range Comments HEMOGLOBIN (BEAKER) (test nfpa=263) 9.0 GM/DL 11.2-15.7 HEMATOCRIT (BEAKER) (test qflt=999) 27.7 % 34.1-44.9 POCT-GLUCOSE [id number] 11:18:00 Test Item Value Reference Range Comments POC-GLUCOSE METER (BEAKER) 183 mg/dL 70-[address] [facility] [address] (test juhe=3812) [facility] [address] RAD, X-RAY, NO [id number] 10:48:00Reason for exam:->previous retained item Should this [...] MDReport Verified Date/Time: 11/07/2017 10:48:17 Reading Location: [address] [facility] Reading Room BASIC METABOLIC [id number] 08:13:00 Test Item Value Reference Range Comments SODIUM (BEAKER) (test 148 meq/L 136-145 qfnr=782) POTASSIUM (BEAKER) (test 4.9 meq/L 3.5-5.1 qvnx=146) CHLORIDE (BEAKER) (test 119 meq/L 98-107 vxyl=031) CO2 (BEAKER) (test 26 meq/L 22-29 oyka=269) BLOOD UREA NITROGEN 61 mg/dL 7-21 (BEAKER) (test cocg=540) CREATININE (BEAKER) (test 0.77 mg/dL 0.57-1.25 ymjg=713) GLUCOSE RANDOM (BEAKER) 92 mg/dL 70-105 (test gmqf=798) CALCIUM (BEAKER) (test 8.3 mg/dL 8.4-10.2 bxbs=064) EGFR (BEAKER) (test 77 mL/min/1.73 sq m ESTIMATED GFR IS NOT svou=7972) ACCURATE CREATININE CLEARANCE IN PREDICTING GLOMERULAR FILTRATION RATE. ESTIMATED GFR IS NOT APPLICABLE FOR DIALYSIS PATIENTS. ANAEROBIC [id number] 08:13:00 Test Item Value Reference Range Comments CULTURE (BEAKER) (test lyvj=5271) 2+ Lactobacillus species PROTHROMBIN [id number] 07:58:00 Test Item Value Reference Range Comments PROTIME (BEAKER) (test mnmk=653) 21.8 seconds 11.7-14.7 INR (BEAKER) (test swmw=002) 1.9 <=5.9 RECOMMENDED COUMADIN/WARFARIN INR THERAPY RANGESSTANDARD DOSE: 2.0 - 3.0 Includes: PROPHYLAXIS forvenous thrombosis, systemic embolization; TREATMENT for venous thrombosis and/or pulmonary embolus.HIGH RISK: Target INR is 2.5-3.5 for patients with mechanical heart valves.HEMOGLOBIN AND [id number] 07 :46:00 Test Item Value Reference Range Comments HEMOGLOBIN (BEAKER) (test gslh=049) 8.4 GM/DL 11.2-15.7 HEMATOCRIT (BEAKER) (test jhku=857) 25.4 % 34.1-44.9 BASIC METABOLIC [id number] 04:20:00 Test Item Value Reference Range Comments SODIUM (BEAKER) (test 147 meq/L 136-145 adop=447) POTASSIUM (BEAKER) (test 5.5 meq/L 3.5-5.1 pilk=468) CHLORIDE (BEAKER) (test 119 meq/L 98-107 flza=251) CO2 (BEAKER) (test 23 meq/L 22-29 ppnn=507) BLOOD UREA NITROGEN 63 mg/dL 7-21 (BEAKER) (test iktx=369) CREATININE (BEAKER) (test 0.83 mg/dL 0.57-1.25 rlnp=802) GLUCOSE RANDOM (BEAKER) 121 mg/dL 70-105 (test ytqf=970) CALCIUM (BEAKER) (test 8.3 mg/dL 8.4-10.2 nlfe=640) EGFR (BEAKER) (test 70 mL/min/1.73 sq m ESTIMATED GFR IS NOT ervi=1034) ACCURATE CREATININE CLEARANCE IN PREDICTING GLOMERULAR FILTRATION RATE. ESTIMATED GFR IS NOT APPLICABLE FOR DIALYSIS PATIENTS. [id number] 04:19:00 Test Item Value Reference Range Comments PHOSPHORUS (BEAKER) (test nzwn=114) 4.4 mg/dL 2.3-4.7 [id number] 04:19:00 Test Item Value Reference Range Comments MAGNESIUM (BEAKER) (test mrpz=077) 2.1 mg/dL 1.6-2.6 BLOOD GAS, [id number] 04:08:00 Test Item Value Reference Range Comments PH ARTERIAL (BEAKER) (test jlnm=183) 7.30 7.35-7.45 PCO2 ARTERIAL (BEAKER) (test ofpc=836) 50 mmHg 35-45 PO2 ARTERIAL (BEAKER) (test feus=190) 144 mmHg 80-90 O2 SATURATION ARTERIAL (BEAKER) (test rtbp=572) 98.5 % 96.0-97.0 HCO3 ARTERIAL (BEAKER) (test wycj=421) 24 mmol/L 21-29 BASE EXCESS ARTERIAL (BEAKER) (test hlyr=571) -2.3 mmol/L -2.0-3.0 PATIENT TEMPERATURE (BEAKER) (test nplx=1084) 37.6 C FIO2 (BEAKER) (test xjeh=4293) 40.0 % CALCIUM, [id number] 04:05:00 Test Item Value Reference Range Comments CALCIUM IONIZED (BEAKER) (test qpge=482) 1.28 mmol/L 1.12-1.27 PH, BLOOD (BEAKER) (test uxjf=8169) 7.31 PROTHROMBIN [id number] 04:02:00 Test Item Value Reference Range Comments PROTIME (BEAKER) (test fdyg=285) 24.4 seconds 11.7-14.7 INR (BEAKER) (test kqup=322) 2.2 <=5.9 RECOMMENDED COUMADIN/WARFARIN INR THERAPY RANGESSTANDARD DOSE: 2.0 - 3.0 Includes: PROPHYLAXIS forvenous thrombosis, systemic embolization; TREATMENT for venous thrombosis and/or pulmonary embolus.HIGH RISK: Target INR is 2.5-3.5 for patients with mechanical heart valves.CBC W/PLT COUNT & AUTO [id number] 04:00:00 Test Item Value Reference Range Comments WHITE BLOOD CELL COUNT (BEAKER) (test sknu=589) 17.3 K/ L 3.5-10.5 RED BLOOD CELL COUNT (BEAKER) (test ptsv=678) 2.76 M/ L 3.93-5.22 HEMOGLOBIN (BEAKER) (test sivy=940) 8.6 GM/DL 11.2-15.7 HEMATOCRIT (BEAKER) (test xddf=362) 26.0 % 34.1-44.9 MEAN CORPUSCULAR VOLUME (BEAKER) (test qiru=406) 94.2 fL 79.4-94.8 MEAN CORPUSCULAR HEMOGLOBIN (BEAKER) (test 31.2 pg 25.6-32.2 tvcs=754) MEAN CORPUSCULAR HEMOGLOBIN CONC (BEAKER) (test 33.1 GM/DL 32.2-35.5 scrd=375) RED CELL DISTRIBUTION WIDTH (BEAKER) (test 15.9 % 11.7-14.4 rqkq=336) PLATELET COUNT (BEAKER) (test aoeh=562) 181 K/CU MM 150-450 MEAN PLATELET VOLUME (BEAKER) (test njwe=646) 10.4 fL 9.4-12.3 NUCLEATED RED BLOOD CELLS (BEAKER) (test 0 /100 WBC 0-0 nzqh=692) NEUTROPHILS RELATIVE PERCENT (BEAKER) (test 73 % zxnl=194) LYMPHOCYTES RELATIVE PERCENT (BEAKER) (test 10 % rodz=602) MONOCYTES RELATIVE PERCENT (BEAKER) (test 8 % qhvm=762) EOSINOPHILS RELATIVE PERCENT (BEAKER) (test 4 % fzyk=201) BASOPHILS RELATIVE PERCENT (BEAKER) (test 1 % jgcl=406) NEUTROPHILS ABSOLUTE COUNT (BEAKER) (test 12.57 K/ L 1.56-6.13 szxa=726) LYMPHOCYTES ABSOLUTE COUNT (BEAKER) (test 1.65 K/ L 1.18-3.74 bxqp=581) MONOCYTES ABSOLUTE COUNT (BEAKER) (test 1.45 K/ L 0.24-0.36 tlfn=618) EOSINOPHILS ABSOLUTE COUNT (BEAKER) (test 0.76 K/ L 0.04-0.36 dwuf=896) BASOPHILS ABSOLUTE COUNT (BEAKER) (test 0.08 K/ L 0.01-0.08 ofob=212) IMMATURE GRANULOCYTES-RELATIVE PERCENT (BEAKER) 5 % 0-1 (test kdjt=8785) HEMOGLOBIN AND [id number] 03:53:00 Test Item Value Reference Range Comments HEMOGLOBIN (BEAKER) (test oidc=335) 8.6 GM/DL 11.2-15.7 HEMATOCRIT (BEAKER) (test erms=822) 26.0 % 34.1-44.9 POCT-GLUCOSE [id number] 03:46:00 Test Item Value Reference Range Comments POC-GLUCOSE METER (BEAKER) 125 mg/dL 70-110 TESTED AT [address] (test bqvu=9144) [facility] [address] POCT-GLUCOSE [id number] 00:59:00 Test Item Value Reference Range Comments POC-GLUCOSE METER (BEAKER) 106 mg/dL 70-110 TESTED AT [address] (test ewwh=0838) [facility] [address] POCT-GLUCOSE [id number] 00:23:00 Test Item Value Reference Range Comments POC-GLUCOSE METER (BEAKER) 55 mg/dL 70-110 Notified EVERARDO GRAHAM/TESTED AT [facility] (test jdvq=2241) [address] [place] [address] BASIC METABOLIC [id number] 22:22:00 Test Item Value Reference Range Comments SODIUM (BEAKER) (test 147 meq/L 136-145 fqjv=565) POTASSIUM (BEAKER) (test 5.8 meq/L 3.5-5.1 ehxq=446) CHLORIDE (BEAKER) (test 119 meq/L 98-107 sjcf=299) CO2 (BEAKER) (test 21 meq/L 22-29 ykuk=617) BLOOD UREA NITROGEN 64 mg/dL 7-21 (BEAKER) (test unhf=881) CREATININE (BEAKER) (test 0.84 mg/dL 0.57-1.25 pbsl=415) GLUCOSE RANDOM (BEAKER) 68 mg/dL 70-105 (test lrfl=285) CALCIUM (BEAKER) (test 8.3 mg/dL 8.4-10.2 qael=334) EGFR (BEAKER) (test 69 mL/min/1.73 sq m ESTIMATED GFR IS NOT plil=3115) ACCURATE CREATININE CLEARANCE IN PREDICTING GLOMERULAR FILTRATION RATE. ESTIMATED GFR IS NOT APPLICABLE FOR DIALYSIS PATIENTS. PROTHROMBIN [id number] 22:17:00 Test Item Value Reference Range Comments PROTIME (BEAKER) (test ibcv=692) 23.2 seconds 11.7-14.7 INR (BEAKER) (test wabu=697) 2.1 <=5.9 RECOMMENDED COUMADIN/WARFARIN INR THERAPY RANGESSTANDARD DOSE: 2.0 - 3.0 Includes: PROPHYLAXIS forvenous thrombosis, systemic embolization; TREATMENT for venous thrombosis and/or pulmonary embolus.HIGH RISK: Target INR is 2.5-3.5 for patients with mechanical heart valves.CBC W/PLT COUNT & AUTO [id number] 22:12:00 Test Item Value Reference Range Comments WHITE BLOOD CELL COUNT (BEAKER) (test nljx=243) 19.6 K/ L 3.5-10.5 RED BLOOD CELL COUNT (BEAKER) (test xfkn=552) 3.04 M/ L 3.93-5.22 HEMOGLOBIN (BEAKER) (test wurc=451) 9.3 GM/DL 11.2-15.7 HEMATOCRIT (BEAKER) (test nhrq=600) 28.4 % 34.1-44.9 MEAN CORPUSCULAR VOLUME (BEAKER) (test xpxv=410) 93.4 fL 79.4-94.8 MEAN CORPUSCULAR HEMOGLOBIN (BEAKER) (test 30.6 pg 25.6-32.2 gbzt=296) MEAN CORPUSCULAR HEMOGLOBIN CONC (BEAKER) (test 32.7 GM/DL 32.2-35.5 jeyt=190) RED CELL DISTRIBUTION WIDTH (BEAKER) (test 15.5 % 11.7-14.4 wkyp=064) PLATELET COUNT (BEAKER) (test bxoh=724) 189 K/CU MM 150-450 MEAN PLATELET VOLUME (BEAKER) (test muqp=963) 10.1 fL 9.4-12.3 NUCLEATED RED BLOOD CELLS (BEAKER) (test 0 /100 WBC 0-0 cnaj=584) NEUTROPHILS RELATIVE PERCENT (BEAKER) (test 71 % cinn=387) LYMPHOCYTES RELATIVE PERCENT (BEAKER) (test 10 % hkbt=886) MONOCYTES RELATIVE PERCENT (BEAKER) (test 8 % uuwq=002) EOSINOPHILS RELATIVE PERCENT (BEAKER) (test 5 % boru=793) BASOPHILS RELATIVE PERCENT (BEAKER) (test 1 % isoi=011) NEUTROPHILS ABSOLUTE COUNT (BEAKER) (test 13.94 K/ L 1.56-6.13 zenw=235) LYMPHOCYTES ABSOLUTE COUNT (BEAKER) (test 1.96 K/ L 1.18-3.74 leol=432) MONOCYTES ABSOLUTE COUNT (BEAKER) (test 1.64 K/ L 0.24-0.36 lpoz=900) EOSINOPHILS ABSOLUTE COUNT (BEAKER) (test 1.00 K/ L 0.04-0.36 gjgh=618) BASOPHILS ABSOLUTE COUNT (BEAKER) (test 0.10 K/ L 0.01-0.08 ogaf=869) IMMATURE GRANULOCYTES-RELATIVE PERCENT (BEAKER) 5 % 0-1 (test vksc=8241) POCT-GLUCOSE [id number] 17:55:00 Test Item Value Reference Range Comments POC-GLUCOSE METER (BEAKER) 129 mg/dL 70-[address] [facility] [address] [facility] (test hsbo=2086) [facility] [address] [id number] 17:04:00 Test Item Value Reference Range Comments PHOSPHORUS (BEAKER) (test iebl=253) 3.8 mg/dL 2.3-4.7 [id number] 17:04:00 Test Item Value Reference Range Comments MAGNESIUM (BEAKER) (test vcuw=516) 2.3 mg/dL 1.6-2.6 BASIC METABOLIC [id number] 17:04:00 Test Item Value Reference Range Comments SODIUM (BEAKER) (test 148 meq/L 136-145 bxay=642) POTASSIUM (BEAKER) (test 5.7 meq/L 3.5-5.1 ewlv=926) CHLORIDE (BEAKER) (test 120 meq/L 98-107 iupr=218) CO2 (BEAKER) (test 22 meq/L 22-29 epag=744) BLOOD UREA NITROGEN 67 mg/dL 7-21 (BEAKER) (test ptrc=069) CREATININE (BEAKER) (test 0.84 mg/dL 0.57-1.25 fkhp=271) GLUCOSE RANDOM (BEAKER) 124 mg/dL 70-105 (test znwm=941) CALCIUM (BEAKER) (test 8.8 mg/dL 8.4-10.2 izbc=538) EGFR (BEAKER) (test 69 mL/min/1.73 sq m ESTIMATED GFR IS NOT wnbv=2668) ACCURATE CREATININE CLEARANCE IN PREDICTING GLOMERULAR FILTRATION RATE. ESTIMATED GFR IS NOT APPLICABLE FOR DIALYSIS PATIENTS. PROTHROMBIN TIME/[id number] 17:01:00 Test Item Value Reference Range Comments PROTIME (BEAKER) (test qlnk=732) 24.4 seconds 11.7-14.7 INR (BEAKER) (test scvr=773) 2.2 <=5.9 RECOMMENDED COUMADIN/WARFARIN INR THERAPY RANGESSTANDARD DOSE: 2.0 - 3.0 Includes: PROPHYLAXIS forvenous thrombosis, systemic embolization; TREATMENT for venous thrombosis and/or pulmonary embolus.HIGH RISK: Target INR is 2.5-3.5 for patients with mechanical heart valves.CBC W/PLT COUNT & AUTO [id number] 16:51:00 Test Item Value Reference Range Comments WHITE BLOOD CELL COUNT (BEAKER) (test rhfk=208) 18.6 K/ L 3.5-10.5 RED BLOOD CELL COUNT (BEAKER) (test balx=915) 3.08 M/ L 3.93-5.22 HEMOGLOBIN (BEAKER) (test jyhk=861) 9.6 GM/DL 11.2-15.7 HEMATOCRIT (BEAKER) (test bjsz=515) 28.1 % 34.1-44.9 MEAN CORPUSCULAR VOLUME (BEAKER) (test vpns=314) 91.2 fL 79.4-94.8 MEAN CORPUSCULAR HEMOGLOBIN (BEAKER) (test 31.2 pg 25.6-32.2 pdqy=411) MEAN CORPUSCULAR HEMOGLOBIN CONC (BEAKER) (test 34.2 GM/DL 32.2-35.5 hpsd=624) RED CELL DISTRIBUTION WIDTH (BEAKER) (test 14.9 % 11.7-14.4 dwtv=194) PLATELET COUNT (BEAKER) (test vsvb=625) 181 K/CU MM 150-450 MEAN PLATELET VOLUME (BEAKER) (test qlpn=486) 10.5 fL 9.4-12.3 NUCLEATED RED BLOOD CELLS (BEAKER) (test 0 /100 WBC 0-0 rayr=605) NEUTROPHILS RELATIVE PERCENT (BEAKER) (test 74 % zxoq=295) LYMPHOCYTES RELATIVE PERCENT (BEAKER) (test 10 % pern=257) MONOCYTES RELATIVE PERCENT (BEAKER) (test 6 % akgc=151) EOSINOPHILS RELATIVE PERCENT (BEAKER) (test 6 % thul=987) BASOPHILS RELATIVE PERCENT (BEAKER) (test 1 % bgbr=800) NEUTROPHILS ABSOLUTE COUNT (BEAKER) (test 13.79 K/ L 1.56-6.13 srdq=932) LYMPHOCYTES ABSOLUTE COUNT (BEAKER) (test 1.76 K/ L 1.18-3.74 ygqw=790) MONOCYTES ABSOLUTE COUNT (BEAKER) (test 1.19 K/ L 0.24-0.36 lthm=618) EOSINOPHILS ABSOLUTE COUNT (BEAKER) (test 1.08 K/ L 0.04-0.36 tugr=756) BASOPHILS ABSOLUTE COUNT (BEAKER) (test 0.11 K/ L 0.01-0.08 bjak=058) IMMATURE GRANULOCYTES-RELATIVE PERCENT (BEAKER) 4 % 0-1 (test lxvc=8869) HEMOGLOBIN AND [id number] 16:39:00 Test Item Value Reference Range Comments HEMOGLOBIN (BEAKER) (test hbif=076) 9.6 GM/DL 11.2-15.7 HEMATOCRIT (BEAKER) (test fdev=770) 28.1 % 34.1-44.9 CBC W/PLT COUNT & AUTO [id number] 14:49:00 Test Item Value Reference Range Comments WHITE BLOOD CELL COUNT 19.0 K/ L 3.5-10.5 (BEAKER) (test khrw=383) RED BLOOD CELL COUNT (BEAKER) 3.06 M/ L 3.93-5.22 (test ospj=388) HEMOGLOBIN (BEAKER) (test 9.6 GM/DL 11.2-15.7 vfdt=943) HEMATOCRIT (BEAKER) (test 27.9 % 34.1-44.9 cmnd=555) MEAN CORPUSCULAR VOLUME 91.2 fL 79.4-94.8 (BEAKER) (test dqme=822) MEAN CORPUSCULAR HEMOGLOBIN 31.4 pg 25.6-32.2 (BEAKER) (test gqqn=549) MEAN CORPUSCULAR HEMOGLOBIN 34.4 GM/DL 32.2-35.5 CONC (BEAKER) (test lmzh=312) RED CELL DISTRIBUTION WIDTH 14.6 % 11.7-14.4 (BEAKER) (test hfqa=891) PLATELET COUNT (BEAKER) (test 172 K/CU MM 150-450 Few large platelets seen on heor=757) smear. MEAN PLATELET VOLUME (BEAKER) 10.7 fL 9.4-12.3 (test vujz=687) NUCLEATED RED BLOOD CELLS 0 /100 WBC 0-0 (BEAKER) (test dpab=404) NEUTROPHILS RELATIVE PERCENT 75 % (BEAKER) (test gqcg=556) LYMPHOCYTES RELATIVE PERCENT 9 % (BEAKER) (test byoj=777) MONOCYTES RELATIVE PERCENT 6 % (BEAKER) (test wcnk=585) EOSINOPHILS RELATIVE PERCENT 6 % (BEAKER) (test roku=829) BASOPHILS RELATIVE PERCENT 0 % (BEAKER) (test zchw=978) NEUTROPHILS ABSOLUTE COUNT 14.31 K/ L 1.56-6.13 (BEAKER) (test ydsm=637) LYMPHOCYTES ABSOLUTE COUNT 1.69 K/ L 1.18-3.74 (BEAKER) (test mjxd=296) MONOCYTES ABSOLUTE COUNT 1.14 K/ L 0.24-0.36 (BEAKER) (test vopn=019) EOSINOPHILS ABSOLUTE COUNT 1.14 K/ L 0.04-0.36 (BEAKER) (test eheb=754) BASOPHILS ABSOLUTE COUNT 0.07 K/ L 0.01-0.08 (BEAKER) (test bexu=666) IMMATURE GRANULOCYTES-RELATIVE 3 % 0-1 PERCENT (BEAKER) (test egib=0269) PROTHROMBIN [id number] 12:40:00 Test Item Value Reference Range Comments PROTIME (BEAKER) (test sdik=485) 22.2 seconds 11.7-14.7 INR (BEAKER) (test bldw=759) 2.0 <=5.9 RECOMMENDED COUMADIN/WARFARIN INR THERAPY RANGESSTANDARD DOSE: 2.0 - 3.0 Includes: PROPHYLAXIS forvenous thrombosis, systemic embolization; TREATMENT for venous thrombosis and/or pulmonary embolus.HIGH RISK: Target INR is 2.5-3.5 for patients with mechanical heart valves.POCT-GLUCOSE [id number] 12:17:00 Test Item Value Reference Range Comments POC-GLUCOSE METER (BEAKER) 103 mg/dL 70-[address] [facility] [address] [facility] (test wnpu=2164) [facility] [address] CBC W/PLT COUNT & AUTO [id number] 07:45:00 Test Item Value Reference Range Comments WHITE BLOOD CELL COUNT (BEAKER) (test ctyt=642) 17.7 K/ L 3.5-10.5 RED BLOOD CELL COUNT (BEAKER) (test kdkt=979) 2.18 M/ L 3.93-5.22 HEMOGLOBIN (BEAKER) (test utko=926) 6.8 GM/DL 11.2-15.7 HEMATOCRIT (BEAKER) (test texd=710) 19.7 % 34.1-44.9 MEAN CORPUSCULAR VOLUME (BEAKER) (test tact=608) 90.4 fL 79.4-94.8 MEAN CORPUSCULAR HEMOGLOBIN (BEAKER) (test 31.2 pg 25.6-32.2 wjhf=560) MEAN CORPUSCULAR HEMOGLOBIN CONC (BEAKER) (test 34.5 GM/DL 32.2-35.5 djpr=508) RED CELL DISTRIBUTION WIDTH (BEAKER) (test 14.7 % 11.7-14.4 gpgl=939) PLATELET COUNT (BEAKER) (test dyhe=352) 151 K/CU MM 150-450 MEAN PLATELET VOLUME (BEAKER) (test lxbu=913) 11.0 fL 9.4-12.3 NUCLEATED RED BLOOD CELLS (BEAKER) (test 0 /100 WBC 0-0 rcyr=156) IMMATURE GRANULOCYTES-RELATIVE PERCENT (BEAKER) 2 % 0-1 (test wmcv=6071) (MANUAL DIFFERENTIAL)2017-11-06 07:45:00 Test Item Value Reference Range Comments NEUTROPHILS - REL (DIFF) (BEAKER) (test 79 % robg=3946) LYMPHOCYTES - REL (DIFF) (BEAKER) (test 6 % hilr=3595) MONOCYTES - REL (DIFF) (BEAKER) (test cmvi=2887) 6 % EOSINOPHILS - REL (DIFF) (BEAKER) (test 6 % xesa=4015) BASOPHILS - REL (DIFF) (BEAKER) (test imrx=8185) 0 % BANDS - REL (DIFF) (BEAKER) (test igkg=6979) 3 % 0-10 NEUTROPHILS - ABS (DIFF) (BEAKER) (test 13.98 K/ L 1.80-8.00 evlo=0620) LYMPHOCYTES - ABS (DIFF) (BEAKER) (test 1.06 K/ L 1.48-4.50 zbzi=1666) MONOCYTES - ABS (DIFF) (BEAKER) (test slyc=4317) 1.06 K/ L 0.00-1.30 EOSINOPHILS - ABS (DIFF) (BEAKER) (test 1.06 K/ L 0.00-0.50 gief=4162) BASOPHILS - ABS (DIFF) (BEAKER) (test usea=2480) 0.00 K/ L 0.00-0.20 BANDS-ABS (DIFF) (BEAKER) (test edgm=7213) 0.5 K/ L 0.0-0.8 TOTAL COUNTED (BEAKER) (test typm=1413) 100 BANDS + SEGMENTED NEUTROPHILS (BEAKER) (test 14.51 yenu=1125) WBC MORPHOLOGY (BEAKER) (test whep=524) Normal PLT MORPHOLOGY (BEAKER) (test zncm=986) Normal RBC MORPHOLOGY (BEAKER) (test swie=564) Normal CALCIUM, [id number] 06:41:00 Test Item Value Reference Range Comments CALCIUM IONIZED (BEAKER) (test fywp=045) 1.24 mmol/L 1.12-1.27 PH, BLOOD (BEAKER) (test nukh=8875) 7.38 POCT-GLUCOSE [id number] 06:29:00 Test Item Value Reference Range Comments POC-GLUCOSE METER (BEAKER) 149 mg/dL 70-110 TESTED AT [address] (test zmol=5591) [facility] [address] BLOOD GAS, [id number] 04:40:00 Test Item Value Reference Range Comments PH ARTERIAL (BEAKER) (test wycw=393) 7.38 7.35-7.45 PCO2 ARTERIAL (BEAKER) (test zytn=876) 43 mmHg 35-45 PO2 ARTERIAL (BEAKER) (test pato=353) 213 mmHg 80-90 O2 SATURATION ARTERIAL (BEAKER) (test ychq=275) 99.4 % 96.0-97.0 HCO3 ARTERIAL (BEAKER) (test ouch=463) 25 mmol/L 21-29 BASE EXCESS ARTERIAL (BEAKER) (test fqdg=452) 0.0 mmol/L -2.0-3.0 PATIENT TEMPERATURE (BEAKER) (test iuyu=8685) 37.0 C FIO2 (BEAKER) (test gaqx=3088) 50.0 % BLOOD GAS, [id number] 04:38:00 Test Item Value Reference Range Comments PH ARTERIAL (BEAKER) (test mfls=965) 7.38 7.35-7.45 PCO2 ARTERIAL (BEAKER) (test zcof=638) 43 mmHg 35-45 PO2 ARTERIAL (BEAKER) (test jveb=498) 213 mmHg 80-90 O2 SATURATION ARTERIAL (BEAKER) (test feca=094) 99.4 % 96.0-97.0 HCO3 ARTERIAL (BEAKER) (test hndw=171) 25 mmol/L 21-29 BASE EXCESS ARTERIAL (BEAKER) (test xbup=578) 0.0 mmol/L -2.0-3.0 PATIENT TEMPERATURE (BEAKER) (test pqjj=4250) 37.0 C FIO2 (BEAKER) (test eyzb=7585) 50.0 % [id number] 04:20:00 Test Item Value Reference Range Comments PHOSPHORUS (BEAKER) (test oown=841) 3.6 mg/dL 2.3-4.7 [id number] 04:20:00 Test Item Value Reference Range Comments MAGNESIUM (BEAKER) (test nvpv=258) 2.4 mg/dL 1.6-2.6 BASIC METABOLIC [id number] 04:20:00 Test Item Value Reference Range Comments SODIUM (BEAKER) (test 143 meq/L 136-145 uyue=068) POTASSIUM (BEAKER) (test 5.5 meq/L 3.5-5.1 lbcc=702) CHLORIDE (BEAKER) (test 114 meq/L 98-107 uysi=138) CO2 (BEAKER) (test 24 meq/L 22-29 vzax=577) BLOOD UREA NITROGEN 74 mg/dL 7-21 (BEAKER) (test ouyz=329) CREATININE (BEAKER) (test 0.91 mg/dL 0.57-1.25 zaaw=221) GLUCOSE RANDOM (BEAKER) 137 mg/dL 70-105 (test swlv=607) CALCIUM (BEAKER) (test 8.5 mg/dL 8.4-10.2 ngxb=810) EGFR (BEAKER) (test 63 mL/min/1.73 sq m ESTIMATED GFR IS NOT mjyk=1253) ACCURATE CREATININE CLEARANCE IN PREDICTING GLOMERULAR FILTRATION RATE. ESTIMATED GFR IS NOT APPLICABLE FOR DIALYSIS PATIENTS. PROTHROMBIN [id number] 04:03:00 Test Item Value Reference Range Comments PROTIME (BEAKER) (test enzo=674) 23.9 seconds 11.7-14.7 INR (BEAKER) (test btik=106) 2.1 <=5.9 RECOMMENDED COUMADIN/WARFARIN INR THERAPY RANGESSTANDARD DOSE: 2.0 - 3.0 Includes: PROPHYLAXIS forvenous thrombosis, systemic embolization; TREATMENT for venous thrombosis and/or pulmonary embolus.HIGH RISK: Target INR is 2.5-3.5 for patients with mechanical heart valves.HEMOGLOBIN AND [id number] 04 :02:00 Test Item Value Reference Range Comments HEMOGLOBIN (BEAKER) (test waxm=525) 6.8 GM/DL 11.2-15.7 HEMATOCRIT (BEAKER) (test vbwj=440) 19.7 % 34.1-44.9 POCT-GLUCOSE [id number] 23:57:00 Test Item Value Reference Range Comments POC-GLUCOSE METER (BEAKER) 153 mg/dL 70-[address] [facility] [address] [facility] (test vxtf=7899) [facility] [address] CBC W/PLT COUNT & AUTO [id number] 21:17:00 Test Item Value Reference Range Comments WHITE BLOOD CELL COUNT (BEAKER) (test kenw=822) 17.6 K/ L 3.5-10.5 RED BLOOD CELL COUNT (BEAKER) (test ywfw=981) 2.67 M/ L 3.93-5.22 HEMOGLOBIN (BEAKER) (test ahkj=630) 8.1 GM/DL 11.2-15.7 HEMATOCRIT (BEAKER) (test swzs=160) 23.4 % 34.1-44.9 MEAN CORPUSCULAR VOLUME (BEAKER) (test ikus=053) 87.6 fL 79.4-94.8 MEAN CORPUSCULAR HEMOGLOBIN (BEAKER) (test 30.3 pg 25.6-32.2 mmad=912) MEAN CORPUSCULAR HEMOGLOBIN CONC (BEAKER) (test 34.6 GM/DL 32.2-35.5 ibnd=378) RED CELL DISTRIBUTION WIDTH (BEAKER) (test 14.5 % 11.7-14.4 vwlg=395) PLATELET COUNT (BEAKER) (test cxsy=165) 155 K/CU MM 150-450 MEAN PLATELET VOLUME (BEAKER) (test cpgs=538) 10.7 fL 9.4-12.3 NUCLEATED RED BLOOD CELLS (BEAKER) (test 0 /100 WBC 0-0 rofi=756) NEUTROPHILS RELATIVE PERCENT (BEAKER) (test 79 % fkme=850) LYMPHOCYTES RELATIVE PERCENT (BEAKER) (test 10 % xktz=622) MONOCYTES RELATIVE PERCENT (BEAKER) (test 6 % tbje=820) EOSINOPHILS RELATIVE PERCENT (BEAKER) (test 4 % izso=435) BASOPHILS RELATIVE PERCENT (BEAKER) (test 1 % grlf=954) NEUTROPHILS ABSOLUTE COUNT (BEAKER) (test 13.87 K/ L 1.56-6.13 sjdj=632) LYMPHOCYTES ABSOLUTE COUNT (BEAKER) (test 1.71 K/ L 1.18-3.74 objp=229) MONOCYTES ABSOLUTE COUNT (BEAKER) (test 1.07 K/ L 0.24-0.36 hoim=633) EOSINOPHILS ABSOLUTE COUNT (BEAKER) (test 0.63 K/ L 0.04-0.36 gcmb=625) BASOPHILS ABSOLUTE COUNT (BEAKER) (test 0.08 K/ L 0.01-0.08 hoed=150) IMMATURE GRANULOCYTES-RELATIVE PERCENT (BEAKER) 1 % 0-1 (test tinr=4884) PROTHROMBIN [id number] 21:03:00 Test Item Value Reference Range Comments PROTIME (BEAKER) (test gzak=705) 23.0 seconds 11.7-14.7 INR (BEAKER) (test gnbl=902) 2.0 <=5.9 RECOMMENDED COUMADIN/WARFARIN INR THERAPY RANGESSTANDARD DOSE: 2.0 - 3.0 Includes: PROPHYLAXIS forvenous thrombosis, systemic embolization; TREATMENT for venous thrombosis and/or pulmonary embolus.HIGH RISK: Target INR is 2.5-3.5 for patients with mechanical heart valves.THROMBOELASTOGRAPH (TEG)2017-11-05 19: 07:00 Test Item Value Reference Range Comments TEG ACTIVATED CLOTTING TIME (BEAKER) (test 8.2 minutes 4.0-7.0 tnda=1188) TEG FIBRINOGEN ACTIVITY (BEAKER) (test 63.1 degrees 61.0-73.0 xuzz=9135) TEG PLT. AGGREGATION (BEAKER) (test sqdv=0556) 59.5 MM 55.0-65.0 TEG FIBRINOLYSIS (BEAKER) (test uoyz=0265) 0.0 % 0.0-5.0 TGH ACTIVATED CLOTTING TIME (BEAKER) (test 8.8 minutes 4.0-7.0 udqo=4252) TGH FIBRINOGEN ACTIVITY (BEAKER) (test 64.5 degrees 61.0-73.0 wkdh=6909) TGH PLT. AGGREGATION (BEAKER) (test hywm=0282) 50.0 MM 55.0-65.0 TGH FIBRINOLYSIS (BEAKER) (test ftay=2246) 0.2 % 0.0-5.0 POCT-GLUCOSE [id number] 17:58:00 Test Item Value Reference Range Comments POC-GLUCOSE METER (BEAKER) 136 mg/dL 70-[address] [facility] [address] [facility] (test dbyd=2455) [facility] [address] [id number] 16:32:00 Test Item Value Reference Range Comments FIBRINOGEN LEVEL (BEAKER) (test znlz=652) 260 mg/dl 225-434 [id number] 16:32:00 Test Item Value Reference Range Comments PARTIAL THROMBOPLASTIN TIME (BEAKER) (test 39.9 seconds 22.5-36.0 qbvz=484) PROTHROMBIN [id number] 16:31:00 Test Item Value Reference Range Comments PROTIME (BEAKER) (test jiow=937) 20.9 seconds 11.7-14.7 INR (BEAKER) (test oezj=201) 1.8 <=5.9 RECOMMENDED COUMADIN/WARFARIN INR THERAPY RANGESSTANDARD DOSE: 2.0 - 3.0 Includes: PROPHYLAXIS forvenous thrombosis, systemic embolization; TREATMENT for venous thrombosis and/or pulmonary embolus.HIGH RISK: Target INR is 2.5-3.5 for patients with mechanical heart valves.CBC (HEMOGRAM ONLY)2017-11-05 16:21:00 Test Item Value Reference Range Comments WHITE BLOOD CELL COUNT (BEAKER) (test teni=507) 16.7 K/ L 3.5-10.5 RED BLOOD CELL COUNT (BEAKER) (test pext=906) 2.69 M/ L 3.93-5.22 HEMOGLOBIN (BEAKER) (test htdq=614) 8.2 GM/DL 11.2-15.7 HEMATOCRIT (BEAKER) (test mfvz=012) 24.1 % 34.1-44.9 MEAN CORPUSCULAR VOLUME (BEAKER) (test bzkx=365) 89.6 fL 79.4-94.8 MEAN CORPUSCULAR HEMOGLOBIN (BEAKER) (test 30.5 pg 25.6-32.2 tjqr=502) MEAN CORPUSCULAR HEMOGLOBIN CONC (BEAKER) (test 34.0 GM/DL 32.2-35.5 ixfh=898) RED CELL DISTRIBUTION WIDTH (BEAKER) (test 14.6 % 11.7-14.4 jzos=790) PLATELET COUNT (BEAKER) (test numr=864) 143 K/CU MM 150-450 MEAN PLATELET VOLUME (BEAKER) (test hnyv=711) 10.8 fL 9.4-12.3 NUCLEATED RED BLOOD CELLS (BEAKER) (test 0 /100 WBC 0-0 tnpo=727) CBC W/PLT COUNT & AUTO [id number] 13:14:00 Test Item Value Reference Range Comments WHITE BLOOD CELL COUNT (BEAKER) (test hpuh=291) 16.0 K/ L 3.5-10.5 RED BLOOD CELL COUNT (BEAKER) (test ybbj=793) 2.52 M/ L 3.93-5.22 HEMOGLOBIN (BEAKER) (test tkry=849) 7.5 GM/DL 11.2-15.7 HEMATOCRIT (BEAKER) (test ohap=684) 22.2 % 34.1-44.9 MEAN CORPUSCULAR VOLUME (BEAKER) (test hjtb=724) 88.1 fL 79.4-94.8 MEAN CORPUSCULAR HEMOGLOBIN (BEAKER) (test 29.8 pg 25.6-32.2 zdpw=709) MEAN CORPUSCULAR HEMOGLOBIN CONC (BEAKER) (test 33.8 GM/DL 32.2-35.5 zrps=334) RED CELL DISTRIBUTION WIDTH (BEAKER) (test 13.6 % 11.7-14.4 bwve=351) PLATELET COUNT (BEAKER) (test slzd=138) 149 K/CU MM 150-450 MEAN PLATELET VOLUME (BEAKER) (test awhm=383) 10.5 fL 9.4-12.3 NUCLEATED RED BLOOD CELLS (BEAKER) (test 0 /100 WBC 0-0 kvhk=669) NEUTROPHILS RELATIVE PERCENT (BEAKER) (test 79 % wqhp=608) LYMPHOCYTES RELATIVE PERCENT (BEAKER) (test 11 % xtel=382) MONOCYTES RELATIVE PERCENT (BEAKER) (test 7 % ruja=886) EOSINOPHILS RELATIVE PERCENT (BEAKER) (test 1 % urye=142) BASOPHILS RELATIVE PERCENT (BEAKER) (test 0 % asre=893) NEUTROPHILS ABSOLUTE COUNT (BEAKER) (test 12.69 K/ L 1.56-6.13 yzme=700) LYMPHOCYTES ABSOLUTE COUNT (BEAKER) (test 1.75 K/ L 1.18-3.74 etbs=056) MONOCYTES ABSOLUTE COUNT (BEAKER) (test 1.11 K/ L 0.24-0.36 bycd=412) EOSINOPHILS ABSOLUTE COUNT (BEAKER) (test 0.18 K/ L 0.04-0.36 qzzf=180) BASOPHILS ABSOLUTE COUNT (BEAKER) (test 0.05 K/ L 0.01-0.08 tplv=611) IMMATURE GRANULOCYTES-RELATIVE PERCENT (BEAKER) 1 % 0-1 (test vzfv=1088) (MANUAL DIFFERENTIAL)2017-11-05 13:14:00 Test Item Value Reference Range Comments TOTAL COUNTED (BEAKER) (test mlux=5453) WBC MORPHOLOGY (BEAKER) (test kumw=971) Normal PLT MORPHOLOGY (BEAKER) (test rvdi=504) Normal RBC MORPHOLOGY (BEAKER) (test qxis=765) Normal RAD, CHEST, 1 VIEW, NON [id number] 13:01:00Reason for exam:->ETT evaluationShould this be performed at the bedside?->YesFINAL REPORT AP chest HISTORY: Endotracheal tube COMPARISON: 11/01/2007 IMPRESSION:Endotracheal tube appears in satisfactory position. Nasogastric tube also noted. Stable cardiac silhouette. Mild perihilar edema. Small left effusion. No pneumothorax. Signed: Radha Machuca MDReport Verified Date/Time: 11/05/2017 13:01:25 Reading Location: [facility] B1 C013T Transitional Reading Room BASI METABOLIC [id number] 12:55:00 Test Item Value Reference Range Comments SODIUM (BEAKER) (test 142 meq/L 136-145 ekzs=330) POTASSIUM (BEAKER) (test 4.8 meq/L 3.5-5.1 dchs=651) CHLORIDE (BEAKER) (test 112 meq/L 98-107 pdco=390) CO2 (BEAKER) (test 25 meq/L 22-29 pnkp=425) BLOOD UREA NITROGEN 67 mg/dL 7-21 (BEAKER) (test ngxk=966) CREATININE (BEAKER) (test 0.90 mg/dL 0.57-1.25 crvd=531) GLUCOSE RANDOM (BEAKER) 141 mg/dL 70-105 (test fssz=460) CALCIUM (BEAKER) (test 7.5 mg/dL 8.4-10.2 uzuv=945) EGFR (BEAKER) (test 64 mL/min/1.73 sq m ESTIMATED GFR IS NOT txms=9650) ACCURATE CREATININE CLEARANCE IN PREDICTING GLOMERULAR FILTRATION RATE. ESTIMATED GFR IS NOT APPLICABLE FOR DIALYSIS PATIENTS. POCT-GLUCOSE [id number] 12:43:00 Test Item Value Reference Range Comments POC-GLUCOSE METER (BEAKER) 165 mg/dL 70-[address] [facility] [address] [facility] (test sbua=3451) [facility] [address] [id number] 12:38:00 Test Item Value Reference Range Comments PHOSPHORUS (BEAKER) (test qeae=189) 4.4 mg/dL 2.3-4.7 [id number] 12:38:00 Test Item Value Reference Range Comments MAGNESIUM (BEAKER) (test sdsf=041) 2.2 mg/dL 1.6-2.6 HEPATIC FUNCTION [id number] 12:38:00 Test Item Value Reference Range Comments TOTAL PROTEIN (BEAKER) (test nxue=300) 4.4 gm/dL 6.0-8.3 ALBUMIN (BEAKER) (test mwip=0001) 2.4 g/dL 3.5-5.0 BILIRUBIN TOTAL (BEAKER) (test owqq=704) 2.0 mg/dL 0.2-1.2 BILIRUBIN DIRECT (BEAKER) (test grle=059) 1.3 mg/dL 0.1-0.5 ALKALINE PHOSPHATASE (BEAKER) (test hapk=748) 48 U/L 40-150 AST (SGOT) (BEAKER) (test qlce=585) 13 U/L 5-34 ALT (SGPT) (BEAKER) (test xqji=723) 9 U/L 6-55 PROTHROMBIN [id number] 12:18:00 Test Item Value Reference Range Comments PROTIME (BEAKER) (test delh=963) 21.7 seconds 11.7-14.7 INR (BEAKER) (test pntg=404) 1.9 <=5.9 RECOMMENDED COUMADIN/WARFARIN INR THERAPY RANGESSTANDARD DOSE: 2.0 - 3.0 Includes: PROPHYLAXIS forvenous thrombosis, systemic embolization; TREATMENT for venous thrombosis and/or pulmonary embolus.HIGH RISK: Target INR is 2.5-3.5 for patients with mechanical heart valves.BLOOD GAS, [id number] 12:07:00 Test Item Value Reference Range Comments PH ARTERIAL (BEAKER) (test bwsu=984) 7.37 7.35-7.45 PCO2 ARTERIAL (BEAKER) (test busw=151) 46 mmHg 35-45 PO2 ARTERIAL (BEAKER) (test dnwp=667) 136 mmHg 80-90 O2 SATURATION ARTERIAL (BEAKER) (test mmzy=520) 98.7 % 96.0-97.0 HCO3 ARTERIAL (BEAKER) (test qsxa=010) 26 mmol/L 21-29 BASE EXCESS ARTERIAL (BEAKER) (test nade=634) 0.5 mmol/L -2.0-3.0 PATIENT TEMPERATURE (BEAKER) (test hdxa=4604) 35.6 C FIO2 (BEAKER) (test fdtu=7798) 50.0 % CALCIUM, [id number] 12:07:00 Test Item Value Reference Range Comments CALCIUM IONIZED (BEAKER) (test gzyc=092) 1.03 mmol/L 1.12-1.27 PH, BLOOD (BEAKER) (test xhpg=8275) 7.35 SURGICALLY OBTAINED CULTURE + GRAM [id number] 11:38:00 Test Item Value Reference Range Comments CULTURE (BEAKER) (test 1+ Same organism has been yxpk=2297) isolated from culture(s) of the same body site and collection date. Repeat identification performed only after consultation with the clinical microbiology laboratory.Refer to previous culture ofCandida tropicalis GRAM STAIN RESULT 1+ WBCs (BEAKER) (test gsvz=7500) GRAM STAIN RESULT No organisms seen (BEAKER) (test bzql=004920) THROMBOELASTOGRAPH (TEG)2017-11-05 11:25:00 Test Item Value Reference Range Comments TEG ACTIVATED CLOTTING TIME (BEAKER) (test 9.2 minutes 4.0-7.0 dwrb=0768) TEG FIBRINOGEN ACTIVITY (BEAKER) (test 55.5 degrees 61.0-73.0 edna=2045) TEG PLT. AGGREGATION (BEAKER) (test nisv=9675) 58.4 MM 55.0-65.0 TEG FIBRINOLYSIS (BEAKER) (test dcld=4049) 2.1 % 0.0-5.0 TGH ACTIVATED CLOTTING TIME (BEAKER) (test 9.5 minutes 4.0-7.0 pfmq=7516) TGH FIBRINOGEN ACTIVITY (BEAKER) (test 67.0 degrees 61.0-73.0 yrsq=0634) TGH PLT. AGGREGATION (BEAKER) (test hipi=0747) 53.7 MM 55.0-65.0 TGH FIBRINOLYSIS (BEAKER) (test qvum=9685) 0.6 % 0.0-5.0 CBC W/PLT COUNT & AUTO [id number] 10:58:00 Test Item Value Reference Range Comments WHITE BLOOD CELL COUNT 12.6 K/ L 3.5-10.5 (BEAKER) (test trhk=090) RED BLOOD CELL COUNT (BEAKER) 1.25 M/ L 3.93-5.22 (test bekz=066) HEMOGLOBIN (BEAKER) (test 3.4 GM/DL 11.2-15.7 Discordant result compared ozhq=431) to previous result; clinical correlation required. HEMATOCRIT (BEAKER) (test 10.9 % 34.1-44.9 nfuo=164) MEAN CORPUSCULAR VOLUME 87.2 fL 79.4-94.8 (BEAKER) (test jeec=254) MEAN CORPUSCULAR HEMOGLOBIN 27.2 pg 25.6-32.2 (BEAKER) (test plrk=282) MEAN CORPUSCULAR HEMOGLOBIN 31.2 GM/DL 32.2-35.5 CONC (BEAKER) (test zcyn=968) RED CELL DISTRIBUTION WIDTH 17.1 % 11.7-14.4 (BEAKER) (test rwfi=374) PLATELET COUNT (BEAKER) (test 233 K/CU MM 150-450 Discordant result compared ioij=381) to previous result; clinical correlation required. MEAN PLATELET VOLUME (BEAKER) 10.7 fL 9.4-12.3 (test xfec=414) NUCLEATED RED BLOOD CELLS 0 /100 WBC 0-0 (BEAKER) (test swcb=803) NEUTROPHILS RELATIVE PERCENT 78 % (BEAKER) (test glpe=492) LYMPHOCYTES RELATIVE PERCENT 12 % (BEAKER) (test jqxv=769) MONOCYTES RELATIVE PERCENT 8 % (BEAKER) (test uqao=817) EOSINOPHILS RELATIVE PERCENT 1 % (BEAKER) (test twki=874) BASOPHILS RELATIVE PERCENT 0 % (BEAKER) (test ufis=220) NEUTROPHILS ABSOLUTE COUNT 9.87 K/ L 1.56-6.13 (BEAKER) (test afxs=967) LYMPHOCYTES ABSOLUTE COUNT 1.56 K/ L 1.18-3.74 (BEAKER) (test maoz=277) MONOCYTES ABSOLUTE COUNT 0.95 K/ L 0.24-0.36 (BEAKER) (test hxjr=877) EOSINOPHILS ABSOLUTE COUNT 0.08 K/ L 0.04-0.36 (BEAKER) (test fzco=399) BASOPHILS ABSOLUTE COUNT 0.00 K/ L 0.01-0.08 (BEAKER) (test upfe=112) IMMATURE 1 % 0-1 GRANULOCYTES-RELATIVE PERCENT (BEAKER) (test yhad=3066) (MANUAL DIFFERENTIAL)2017-11-05 10:58:00 Test Item Value Reference Range Comments TOTAL COUNTED (BEAKER) (test rdny=5777) WBC MORPHOLOGY (BEAKER) (test pqpd=227) Normal PLT MORPHOLOGY (BEAKER) (test fbbf=337) Normal HYPOCHROMIA (BEAKER) (test uppk=580) 2+ moderate BASIC METABOLIC [id number] 10:09:00 Test Item Value Reference Range Comments SODIUM (BEAKER) (test 143 meq/L 136-145 oqur=890) POTASSIUM (BEAKER) (test 5.2 meq/L 3.5-5.1 eqgl=325) CHLORIDE (BEAKER) (test 113 meq/L 98-107 xylt=429) CO2 (BEAKER) (test 25 meq/L 22-29 ewrf=351) BLOOD UREA NITROGEN 68 mg/dL 7-21 (BEAKER) (test kaes=998) CREATININE (BEAKER) (test 0.85 mg/dL 0.57-1.25 gypb=613) GLUCOSE RANDOM (BEAKER) 183 mg/dL 70-105 (test khwo=273) CALCIUM (BEAKER) (test 7.6 mg/dL 8.4-10.2 zsmh=905) EGFR (BEAKER) (test 68 mL/min/1.73 sq m ESTIMATED GFR IS NOT ikvz=6394) ACCURATE CREATININE CLEARANCE IN PREDICTING GLOMERULAR FILTRATION RATE. ESTIMATED GFR IS NOT APPLICABLE FOR DIALYSIS PATIENTS. [id number] 09:55:00 Test Item Value Reference Range Comments PHOSPHORUS (BEAKER) (test mbyj=027) 4.5 mg/dL 2.3-4.7 [id number] 09:55:00 Test Item Value Reference Range Comments MAGNESIUM (BEAKER) (test chte=994) 2.1 mg/dL 1.6-2.6 [id number] 09:49:00 Test Item Value Reference Range Comments FIBRINOGEN LEVEL (BEAKER) (test bdvh=384) 233 mg/dl 225-434 [id number] 09:49:00 Test Item Value Reference Range Comments PARTIAL THROMBOPLASTIN TIME (BEAKER) (test 51.0 seconds 22.5-36.0 zzdp=932) PROTHROMBIN [id number] 09:48:00 Test Item Value Reference Range Comments PROTIME (BEAKER) (test wyww=714) 22.3 seconds 11.7-14.7 INR (BEAKER) (test jzbd=157) 2.0 <=5.9 RECOMMENDED COUMADIN/WARFARIN INR THERAPY RANGESSTANDARD DOSE: 2.0 - 3.0 Includes: PROPHYLAXIS forvenous thrombosis, systemic embolization; TREATMENT for venous thrombosis and/or pulmonary embolus.HIGH RISK: Target INR is 2.5-3.5 for patients with mechanical heart valves.BLOOD GAS, [id number] 09:43:00 Test Item Value Reference Range Comments PH ARTERIAL (BEAKER) (test qmjc=716) 7.37 7.35-7.45 PCO2 ARTERIAL (BEAKER) (test ttjr=659) 44 mmHg 35-45 PO2 ARTERIAL (BEAKER) (test bkie=377) 111 mmHg 80-90 O2 SATURATION ARTERIAL (BEAKER) (test abwq=756) 98.1 % 96.0-97.0 HCO3 ARTERIAL (BEAKER) (test hzhy=634) 25 mmol/L 21-29 BASE EXCESS ARTERIAL (BEAKER) (test bhbe=773) -0.4 mmol/L -2.0-3.0 PATIENT TEMPERATURE (BEAKER) (test aued=7462) 36.1 C FIO2 (BEAKER) (test xiab=8412) 28.0 % HEMOGLOBIN AND [id number] 09:39:00 Test Item Value Reference Range Comments HEMOGLOBIN (BEAKER) (test 9.2 GM/DL 11.2-15.7 Discordant result compared to dcvt=978) previous result; clinical correlation required. HEMATOCRIT (BEAKER) (test 27.3 % 34.1-44.9 whcu=774) PLATELET [id number] 09:39:00 Test Item Value Reference Range Comments PLATELET COUNT (BEAKER) 153 K/CU MM 150-450 Discordant result compared to (test gzvq=210) previous result; clinical correlation required. CBC (HEMOGRAM ONLY)2017-11-05 08:12:00 Test Item Value Reference Range Comments WHITE BLOOD CELL COUNT (BEAKER) (test xzzt=576) 14.6 K/ L 3.5-10.5 RED BLOOD CELL COUNT (BEAKER) (test wbzi=798) 0.86 M/ L 3.93-5.22 HEMOGLOBIN (BEAKER) (test xiqf=717) 2.4 GM/DL 11.2-15.7 HEMATOCRIT (BEAKER) (test zjyi=580) 7.5 % 34.1-44.9 MEAN CORPUSCULAR VOLUME (BEAKER) (test padg=236) 87.2 fL 79.4-94.8 MEAN CORPUSCULAR HEMOGLOBIN (BEAKER) (test 27.9 pg 25.6-32.2 bvwk=247) MEAN CORPUSCULAR HEMOGLOBIN CONC (BEAKER) (test 32.0 GM/DL 32.2-35.5 ifnp=656) RED CELL DISTRIBUTION WIDTH (BEAKER) (test 17.2 % 11.7-14.4 cpxg=239) PLATELET COUNT (BEAKER) (test pyym=287) 207 K/CU MM 150-450 MEAN PLATELET VOLUME (BEAKER) (test cbkm=219) 10.7 fL 9.4-12.3 NUCLEATED RED BLOOD CELLS (BEAKER) (test 0 /100 WBC 0-0 wcpu=175) [id number] 08:04:00 Test Item Value Reference Range Comments FIBRINOGEN LEVEL (BEAKER) (test grak=464) 146 mg/dl 225-434 [id number] 08:00:00 Test Item Value Reference Range Comments PARTIAL THROMBOPLASTIN TIME (BEAKER) (test 72.3 seconds 22.5-36.0 ejou=581) PROTHROMBIN [id number] 07:58:00 Test Item Value Reference Range Comments PROTIME (BEAKER) (test ayef=845) 31.0 seconds 11.7-14.7 INR (BEAKER) (test qkpf=631) 3.0 <=5.9 RECOMMENDED COUMADIN/WARFARIN INR THERAPY RANGESSTANDARD DOSE: 2.0 - 3.0 Includes: PROPHYLAXIS forvenous thrombosis, systemic embolization; TREATMENT for venous thrombosis and/or pulmonary embolus.HIGH RISK: Target INR is 2.5-3.5 for patients with mechanical heart valves.HGB/HCT (H&H) - STAT [id number] 07:50:00 Test Item Value Reference Range Comments HEMOGLOBIN (BEAKER) (test tasa=242) 2.6 g/dL 12.0-15.0 HEMATOCRIT (BEAKER) (test iaya=904) 8.0 % 36.0-45.0 GLUCOSE-STAT [id number] 07:50:00 Test Item Value Reference Range Comments GLUCOSE RANDOM (BEAKER) (test trao=890) 134 mg/dL 70-110 SODIUM NA-STAT [id number] 07:43:00 Test Item Value Reference Range Comments SODIUM (BEAKER) (test zmbd=930) 138 meq/L 135-148 POTASSIUM-STAT [id number] 07:43:00 Test Item Value Reference Range Comments POTASSIUM (BEAKER) (test xofs=140) 4.6 meq/L 3.6-5.5 POCT-GLUCOSE [id number] 06:26:00 Test Item Value Reference Range Comments POC-GLUCOSE METER (BEAKER) 171 mg/dL 70-[address] [facility] [address] [facility] (test tfrf=8756) [facility] [address] BASIC METABOLIC [id number] 04:22:00 Test Item Value Reference Range Comments SODIUM (BEAKER) (test 143 meq/L 136-145 uxko=172) POTASSIUM (BEAKER) (test 4.5 meq/L 3.5-5.1 kmjh=351) CHLORIDE (BEAKER) (test 109 meq/L 98-107 ijjx=701) CO2 (BEAKER) (test 28 meq/L 22-29 oijw=642) BLOOD UREA NITROGEN 67 mg/dL 7-21 (BEAKER) (test eqpe=188) CREATININE (BEAKER) (test 0.94 mg/dL 0.57-1.25 cuvn=325) GLUCOSE RANDOM (BEAKER) 141 mg/dL 70-105 (test hzxy=904) CALCIUM (BEAKER) (test 7.7 mg/dL 8.4-10.2 mcgn=456) EGFR (BEAKER) (test 61 mL/min/1.73 sq m ESTIMATED GFR IS NOT fwaj=0599) ACCURATE CREATININE CLEARANCE IN PREDICTING GLOMERULAR FILTRATION RATE. ESTIMATED GFR IS NOT APPLICABLE FOR DIALYSIS PATIENTS. [id number] 04:16:00 Test Item Value Reference Range Comments PHOSPHORUS (BEAKER) (test lnuv=338) 3.8 mg/dL 2.3-4.7 [id number] 04:16:00 Test Item Value Reference Range Comments MAGNESIUM (BEAKER) (test weab=569) 2.4 mg/dL 1.6-2.6 POCT-GLUCOSE [id number] 00:08:00 Test Item Value Reference Range Comments POC-GLUCOSE METER (BEAKER) 177 mg/dL 70-110 TESTED AT [address] (test sxyo=3663) [place] [address] POCT-GLUCOSE [id number] 18:45:00 Test Item Value Reference Range Comments POC-GLUCOSE METER (BEAKER) 149 mg/dL 70-110 TESTED AT [address] (test kxfr=3913) [place] [address] ANAEROBIC [id number] 18:14:00 Test Item Value Reference Range Comments CULTURE (BEAKER) (test mywc=1153) No anaerobes isolated [id number] 17:23:00 Test Item Value Reference Range Comments PHOSPHORUS (BEAKER) (test yjrh=917) 3.7 mg/dL 2.3-4.7 [id number] 17:23:00 Test Item Value Reference Range Comments MAGNESIUM (BEAKER) (test vsxk=657) 2.1 mg/dL 1.6-2.6 BASIC METABOLIC [id number] 17:23:00 Test Item Value Reference Range Comments SODIUM (BEAKER) (test 145 meq/L 136-145 lite=288) POTASSIUM (BEAKER) (test 4.2 meq/L 3.5-5.1 nbtv=878) CHLORIDE (BEAKER) (test 107 meq/L 98-107 ojhu=620) CO2 (BEAKER) (test 30 meq/L 22-29 pjhr=288) BLOOD UREA NITROGEN 55 mg/dL 7-21 (BEAKER) (test wdru=699) CREATININE (BEAKER) (test 0.77 mg/dL 0.57-1.25 mjrq=302) GLUCOSE RANDOM (BEAKER) 174 mg/dL 70-105 (test aakg=450) CALCIUM (BEAKER) (test 8.8 mg/dL 8.4-10.2 jawr=020) EGFR (BEAKER) (test 77 mL/min/1.73 sq m ESTIMATED GFR IS NOT mhpo=8319) ACCURATE CREATININE CLEARANCE IN PREDICTING GLOMERULAR FILTRATION RATE. ESTIMATED GFR IS NOT APPLICABLE FOR DIALYSIS PATIENTS. [id number] 17:15:00 Test Item Value Reference Range Comments PARTIAL THROMBOPLASTIN TIME (BEAKER) (test 47.1 seconds 22.5-36.0 lhvi=120) PROTHROMBIN TIME/[id number] 17:14:00 Test Item Value Reference Range Comments PROTIME (BEAKER) (test thgz=266) 21.3 seconds 11.7-14.7 INR (BEAKER) (test izzt=878) 1.9 <=5.9 RECOMMENDED COUMADIN/WARFARIN INR THERAPY RANGESSTANDARD DOSE: 2.0 - 3.0 Includes: PROPHYLAXIS forvenous thrombosis, systemic embolization; TREATMENT for venous thrombosis and/or pulmonary embolus.HIGH RISK: Target INR is 2.5-3.5 for patients with mechanical heart valves.CBC W/PLT COUNT & AUTO [id number] 17:05:00 Test Item Value Reference Range Comments WHITE BLOOD CELL COUNT (BEAKER) (test nhhs=817) 15.2 K/ L 3.5-10.5 RED BLOOD CELL COUNT (BEAKER) (test dace=115) 3.35 M/ L 3.93-5.22 HEMOGLOBIN (BEAKER) (test drwb=219) 8.9 GM/DL 11.2-15.7 HEMATOCRIT (BEAKER) (test zdmu=858) 28.2 % 34.1-44.9 MEAN CORPUSCULAR VOLUME (BEAKER) (test mxqe=904) 84.2 fL 79.4-94.8 MEAN CORPUSCULAR HEMOGLOBIN (BEAKER) (test 26.6 pg 25.6-32.2 xjpw=915) MEAN CORPUSCULAR HEMOGLOBIN CONC (BEAKER) (test 31.6 GM/DL 32.2-35.5 kyfp=850) RED CELL DISTRIBUTION WIDTH (BEAKER) (test 16.5 % 11.7-14.4 imxr=717) PLATELET COUNT (BEAKER) (test khar=635) 464 K/CU MM 150-450 MEAN PLATELET VOLUME (BEAKER) (test mijp=027) 10.0 fL 9.4-12.3 NUCLEATED RED BLOOD CELLS (BEAKER) (test 0 /100 WBC 0-0 xped=540) NEUTROPHILS RELATIVE PERCENT (BEAKER) (test 75 % agob=698) LYMPHOCYTES RELATIVE PERCENT (BEAKER) (test 14 % poxk=493) MONOCYTES RELATIVE PERCENT (BEAKER) (test 6 % ixzp=338) EOSINOPHILS RELATIVE PERCENT (BEAKER) (test 3 % nswm=636) BASOPHILS RELATIVE PERCENT (BEAKER) (test 1 % surv=535) NEUTROPHILS ABSOLUTE COUNT (BEAKER) (test 11.32 K/ L 1.56-6.13 pdis=387) LYMPHOCYTES ABSOLUTE COUNT (BEAKER) (test 2.09 K/ L 1.18-3.74 vood=842) MONOCYTES ABSOLUTE COUNT (BEAKER) (test 0.88 K/ L 0.24-0.36 raqu=037) EOSINOPHILS ABSOLUTE COUNT (BEAKER) (test 0.41 K/ L 0.04-0.36 hoei=078) BASOPHILS ABSOLUTE COUNT (BEAKER) (test 0.10 K/ L 0.01-0.08 wjio=812) IMMATURE GRANULOCYTES-RELATIVE PERCENT (BEAKER) 3 % 0-1 (test nuvm=6033) BLOOD GAS, [id number] 14:57:00 Test Item Value Reference Range Comments PH ARTERIAL (BEAKER) (test adua=167) 7.41 7.35-7.45 PCO2 ARTERIAL (BEAKER) (test odjz=937) 55 mmHg 35-45 PO2 ARTERIAL (BEAKER) (test qvnw=147) 202 mmHg 80-90 O2 SATURATION ARTERIAL (BEAKER) (test egqv=863) 99.4 % 96.0-97.0 HCO3 ARTERIAL (BEAKER) (test bpvs=010) 34 mmol/L 21-29 BASE EXCESS ARTERIAL (BEAKER) (test wrti=224) 8.0 mmol/L -2.0-3.0 PATIENT TEMPERATURE (BEAKER) (test ozab=1394) 37.0 C FIO2 (BEAKER) (test zevk=4998) 100.0 % GLUCOSE-STAT [id number] 14:57:00 Test Item Value Reference Range Comments GLUCOSE RANDOM (BEAKER) (test ltzk=352) 149 mg/dL 70-110 HGB/HCT (H&H) - STAT [id number] 14:57:00 Test Item Value Reference Range Comments HEMOGLOBIN (BEAKER) (test usru=294) 6.9 g/dL 12.0-15.0 HEMATOCRIT (BEAKER) (test iesk=935) 20.0 % 36.0-45.0 CALCIUM, [id number] 14:57:00 Test Item Value Reference Range Comments CALCIUM IONIZED (BEAKER) (test wkjj=804) 1.09 mmol/L 1.12-1.27 PH, BLOOD (BEAKER) (test mhce=1585) 7.41 SODIUM NA-STAT [id number] 14:56:00 Test Item Value Reference Range Comments SODIUM (BEAKER) (test aeaw=167) 141 meq/L 135-148 POTASSIUM-STAT [id number] 14:56:00 Test Item Value Reference Range Comments POTASSIUM (BEAKER) (test mxua=784) 3.6 meq/L 3.6-5.5 POCT-GLUCOSE [id number] 11:52:00 Test Item Value Reference Range Comments POC-GLUCOSE METER (BEAKER) 150 mg/dL 70-[address] [facility] [address] [facility] (test onau=1542) [facility] [address] PROTEIN, 24 HOUR [id number] 08:38:00 Test Item Value Reference Range Comments PROTEIN, 24HR URINE (BEAKER) (test mtvq=2598) 372 mg/24hr 0-300 VOLUME, TOTAL (BEAKER) (test rbbc=6136) 2325 ml PROTEIN, URINE (BEAKER) (test uxat=8633) 16 mg/dL 0-14 POCT-GLUCOSE [id number] 07:58:00 Test Item Value Reference Range Comments POC-GLUCOSE METER (BEAKER) 170 mg/dL 70-[address] [facility] [address] [facility] (test affn=1323) [facility] [address] [id number] 05:09:00 Test Item Value Reference Range Comments PHOSPHORUS (BEAKER) (test gtnl=755) 3.5 mg/dL 2.3-4.7 [id number] 05:09:00 Test Item Value Reference Range Comments MAGNESIUM (BEAKER) (test pois=959) 1.9 mg/dL 1.6-2.6 BASIC METABOLIC [id number] 05:09:00 Test Item Value Reference Range Comments SODIUM (BEAKER) (test 145 meq/L 136-145 sdvt=677) POTASSIUM (BEAKER) (test 3.6 meq/L 3.5-5.1 hihz=965) CHLORIDE (BEAKER) (test 103 meq/L 98-107 zgct=754) CO2 (BEAKER) (test 35 meq/L 22-29 czlm=577) BLOOD UREA NITROGEN 56 mg/dL 7-21 (BEAKER) (test zgvr=138) CREATININE (BEAKER) (test 0.75 mg/dL 0.57-1.25 qrjn=293) GLUCOSE RANDOM (BEAKER) 141 mg/dL 70-105 (test qcve=317) CALCIUM (BEAKER) (test 7.9 mg/dL 8.4-10.2 uegw=579) EGFR (BEAKER) (test 79 mL/min/1.73 sq m ESTIMATED GFR IS NOT kgiz=9594) ACCURATE CREATININE CLEARANCE IN PREDICTING GLOMERULAR FILTRATION RATE. ESTIMATED GFR IS NOT APPLICABLE FOR DIALYSIS PATIENTS. CBC W/PLT COUNT & AUTO [id number] 05:00:00 Test Item Value Reference Range Comments WHITE BLOOD CELL COUNT (BEAKER) (test xwxr=102) 17.6 K/ L 3.5-10.5 RED BLOOD CELL COUNT (BEAKER) (test ckbg=139) 2.83 M/ L 3.93-5.22 HEMOGLOBIN (BEAKER) (test fnrz=124) 7.6 GM/DL 11.2-15.7 HEMATOCRIT (BEAKER) (test vknr=342) 24.7 % 34.1-44.9 MEAN CORPUSCULAR VOLUME (BEAKER) (test inzh=802) 87.3 fL 79.4-94.8 MEAN CORPUSCULAR HEMOGLOBIN (BEAKER) (test 26.9 pg 25.6-32.2 mhrj=393) MEAN CORPUSCULAR HEMOGLOBIN CONC (BEAKER) (test 30.8 GM/DL 32.2-35.5 zgpz=886) RED CELL DISTRIBUTION WIDTH (BEAKER) (test 17.3 % 11.7-14.4 qumg=887) PLATELET COUNT (BEAKER) (test erdy=106) 530 K/CU MM 150-450 MEAN PLATELET VOLUME (BEAKER) (test qcue=749) 9.8 fL 9.4-12.3 NUCLEATED RED BLOOD CELLS (BEAKER) (test 0 /100 WBC 0-0 lkqy=849) NEUTROPHILS RELATIVE PERCENT (BEAKER) (test 77 % fnih=023) LYMPHOCYTES RELATIVE PERCENT (BEAKER) (test 12 % jchd=357) MONOCYTES RELATIVE PERCENT (BEAKER) (test 8 % ouit=432) EOSINOPHILS RELATIVE PERCENT (BEAKER) (test 1 % crot=056) BASOPHILS RELATIVE PERCENT (BEAKER) (test 1 % upba=108) NEUTROPHILS ABSOLUTE COUNT (BEAKER) (test 13.50 K/ L 1.56-6.13 cmjj=526) LYMPHOCYTES ABSOLUTE COUNT (BEAKER) (test 2.10 K/ L 1.18-3.74 qeuj=188) MONOCYTES ABSOLUTE COUNT (BEAKER) (test 1.48 K/ L 0.24-0.36 tkjm=087) EOSINOPHILS ABSOLUTE COUNT (BEAKER) (test 0.22 K/ L 0.04-0.36 efnw=778) BASOPHILS ABSOLUTE COUNT (BEAKER) (test 0.12 K/ L 0.01-0.08 eulr=423) IMMATURE GRANULOCYTES-RELATIVE PERCENT (BEAKER) 1 % 0-1 (test dkza=5810) PROTHROMBIN [id number] 04:47:00 Test Item Value Reference Range Comments PROTIME (BEAKER) (test birr=309) 21.6 seconds 11.7-14.7 INR (BEAKER) (test xcon=277) 1.9 <=5.9 RECOMMENDED COUMADIN/WARFARIN INR THERAPY RANGESSTANDARD DOSE: 2.0 - 3.0 Includes: PROPHYLAXIS forvenous thrombosis, systemic embolization; TREATMENT for venous thrombosis and/or pulmonary embolus.HIGH RISK: Target INR is 2.5-3.5 for patients with mechanical heart valves.POCT-GLUCOSE [id number] 02:38:00 Test Item Value Reference Range Comments POC-GLUCOSE METER (BEAKER) 167 mg/dL 70-110 TESTED AT [address] (test duwj=3671) [place] [address] POCT-GLUCOSE [id number] 17:37:00 Test Item Value Reference Range Comments POC-GLUCOSE METER (BEAKER) 141 mg/dL 70-110 TESTED AT [address] (test rzhe=9010) [place] [address] BLOOD [id number] 17:00:00 Test Item Value Reference Range Comments CULTURE (BEAKER) (test tozt=3753) No growth in 5 days BLOOD [id number] 17:00:00 Test Item Value Reference Range Comments CULTURE (BEAKER) (test zjla=1799) No growth in 5 days RAD, ABDOMEN/KUB, 1 VIEW [id number] 12:10:00Reason for exam:->NG placementFINAL REPORT Abdomen one view shows NG tube extending to the gastric body level. Signed: Jaiden Santana Verified Date /Time: 11/03/2017 12:10:21 Reading Location: [facility] Radiology Reading Room POCT-GLUCOSE [id number] 11:45:00 Test Item Value Reference Range Comments POC-GLUCOSE METER (BEAKER) 149 mg/dL 70-110 TESTED AT [address] (test fcbw=9663) [place] [address] POCT-GLUCOSE [id number] 07:20:00 Test Item Value Reference Range Comments POC-GLUCOSE METER (BEAKER) 157 mg/dL 70-110 TESTED AT [address] (test wucv=8868) [place] [address] BASIC METABOLIC [id number] 05:35:00 Test Item Value Reference Range Comments SODIUM (BEAKER) (test 150 meq/L 136-145 bzmc=630) POTASSIUM (BEAKER) (test 4.2 meq/L 3.5-5.1 lrti=469) CHLORIDE (BEAKER) (test 106 meq/L 98-107 yeji=866) CO2 (BEAKER) (test 35 meq/L 22-29 bfis=800) BLOOD UREA NITROGEN 53 mg/dL 7-21 (BEAKER) (test onkw=646) CREATININE (BEAKER) (test 0.78 mg/dL 0.57-1.25 lrww=230) GLUCOSE RANDOM (BEAKER) 124 mg/dL 70-105 (test qloy=579) CALCIUM (BEAKER) (test 7.9 mg/dL 8.4-10.2 szfd=653) EGFR (BEAKER) (test 76 mL/min/1.73 sq m ESTIMATED GFR IS NOT jzeb=2685) ACCURATE CREATININE CLEARANCE IN PREDICTING GLOMERULAR FILTRATION RATE. ESTIMATED GFR IS NOT APPLICABLE FOR DIALYSIS PATIENTS. [id number] 05:32:00 Test Item Value Reference Range Comments PHOSPHORUS (BEAKER) (test envr=984) 3.6 mg/dL 2.3-4.7 [id number] 05:32:00 Test Item Value Reference Range Comments MAGNESIUM (BEAKER) (test meqa=344) 2.0 mg/dL 1.6-2.6 CBC W/PLT COUNT & AUTO [id number] 05:26:00 Test Item Value Reference Range Comments WHITE BLOOD CELL COUNT (BEAKER) (test iqka=201) 16.8 K/ L 3.5-10.5 RED BLOOD CELL COUNT (BEAKER) (test xohk=908) 2.90 M/ L 3.93-5.22 HEMOGLOBIN (BEAKER) (test uxyl=196) 7.8 GM/DL 11.2-15.7 HEMATOCRIT (BEAKER) (test zgxw=522) 25.4 % 34.1-44.9 MEAN CORPUSCULAR VOLUME (BEAKER) (test fwzh=737) 87.6 fL 79.4-94.8 MEAN CORPUSCULAR HEMOGLOBIN (BEAKER) (test 26.9 pg 25.6-32.2 lrqm=471) MEAN CORPUSCULAR HEMOGLOBIN CONC (BEAKER) (test 30.7 GM/DL 32.2-35.5 kjue=459) RED CELL DISTRIBUTION WIDTH (BEAKER) (test 17.1 % 11.7-14.4 zqsh=365) PLATELET COUNT (BEAKER) (test rrtp=810) 523 K/CU MM 150-450 MEAN PLATELET VOLUME (BEAKER) (test ognn=252) 9.8 fL 9.4-12.3 NUCLEATED RED BLOOD CELLS (BEAKER) (test 0 /100 WBC 0-0 kxdx=337) NEUTROPHILS RELATIVE PERCENT (BEAKER) (test 71 % myjd=942) LYMPHOCYTES RELATIVE PERCENT (BEAKER) (test 13 % uaog=889) MONOCYTES RELATIVE PERCENT (BEAKER) (test 8 % cryl=832) EOSINOPHILS RELATIVE PERCENT (BEAKER) (test 6 % zsyg=555) BASOPHILS RELATIVE PERCENT (BEAKER) (test 1 % fmqs=482) NEUTROPHILS ABSOLUTE COUNT (BEAKER) (test 11.98 K/ L 1.56-6.13 bzzo=326) LYMPHOCYTES ABSOLUTE COUNT (BEAKER) (test 2.15 K/ L 1.18-3.74 xuwm=720) MONOCYTES ABSOLUTE COUNT (BEAKER) (test 1.40 K/ L 0.24-0.36 pvud=752) EOSINOPHILS ABSOLUTE COUNT (BEAKER) (test 0.96 K/ L 0.04-0.36 zjup=088) BASOPHILS ABSOLUTE COUNT (BEAKER) (test 0.15 K/ L 0.01-0.08 ikhb=032) IMMATURE GRANULOCYTES-RELATIVE PERCENT (BEAKER) 1 % 0-1 (test kitw=2652) POCT-GLUCOSE [id number] 00:53:00 Test Item Value Reference Range Comments POC-GLUCOSE METER (BEAKER) 136 mg/dL 70-110 TESTED AT [address] (test tbtk=6169) [place] [id number] POCT-GLUCOSE [id number] 18:41:00 Test Item Value Reference Range Comments POC-GLUCOSE METER (BEAKER) 131 mg/dL 70-110 TESTED AT [address] (test ycks=2746) [place] [address] SPIN/CONCENTRATION [id number] 15:10:00 Test Item Value Reference Range Comments CONCENTRATION CHARGED (BEAKER) (test menc=9423) Done SPIN/CONCENTRATION [id number] 15:10:00 Test Item Value Reference Range Comments CONCENTRATION CHARGED (BEAKER) (test gssp=9287) Done VANCOMYCIN LEVEL, [id number] 13:24:00 Test Item Value Reference Range Comments VANCOMYCIN TROUGH (BEAKER) (test ktko=481) 11.9 ug/mL 10.0-20.0 Please draw 30 minutes prior to vancomycin due time. Do not administer if vancomycin trough is >20 mcg/mL. Thank you!POCT-GLUCOSE [id number] 13:23 :00 Test Item Value Reference Range Comments POC-GLUCOSE METER (BEAKER) 140 mg/dL 70-[address] [facility] [address] (test wjhe=5025) [facility] [address] BLOOD [id number] 13:21:00 Test Item Value Reference Range Comments CULTURE (BEAKER) From Aerobic Bottle Only (test shuy=4922) Coagulase negative Staphylococcus GRAM STAIN RESULT From aerobic bottle (BEAKER) (test only: gram positive qrep=6681) cocci in clusters Coagulase Negative Staphylococcus Species [...] sample was tested at the [facility] Clinical Microbiology Laboratory using the [employer] Blood Culture ID Panel.This test is FDA cleared for in vitro diagnostic use and has been verified and approved by [facility] for [facility] use. Reference Range: Not DetectedBASI METABOLIC [id number] 06:02:00 Test Item Value Reference Range Comments SODIUM (BEAKER) (test 145 meq/L 136-145 ryow=822) POTASSIUM (BEAKER) (test 4.3 meq/L 3.5-5.1 mjto=160) CHLORIDE (BEAKER) (test 104 meq/L 98-107 faoh=854) CO2 (BEAKER) (test 35 meq/L 22-29 jprx=126) BLOOD UREA NITROGEN 52 mg/dL 7-21 (BEAKER) (test mbba=636) CREATININE (BEAKER) (test 0.99 mg/dL 0.57-1.25 fxlx=424) GLUCOSE RANDOM (BEAKER) 146 mg/dL 70-105 (test enic=510) CALCIUM (BEAKER) (test 7.7 mg/dL 8.4-10.2 wnok=922) EGFR (BEAKER) (test 57 mL/min/1.73 sq m ESTIMATED GFR IS NOT ynyk=5189) ACCURATE CREATININE CLEARANCE IN PREDICTING GLOMERULAR FILTRATION RATE. ESTIMATED GFR IS NOT APPLICABLE FOR DIALYSIS PATIENTS. [id number] 06:01:00 Test Item Value Reference Range Comments PHOSPHORUS (BEAKER) (test bnat=396) 2.9 mg/dL 2.3-4.7 [id number] 06:01:00 Test Item Value Reference Range Comments MAGNESIUM (BEAKER) (test xyxj=013) 2.3 mg/dL 1.6-2.6 POCT-GLUCOSE [id number] 05:59:00 Test Item Value Reference Range Comments POC-GLUCOSE METER (BEAKER) 153 mg/dL 70-[address] [facility] [address] [facility] (test fblq=9297) [facility] [address] CBC W/PLT COUNT & AUTO [id number] 05:40:00 Test Item Value Reference Range Comments WHITE BLOOD CELL COUNT (BEAKER) (test yrwy=100) 21.1 K/ L 3.5-10.5 RED BLOOD CELL COUNT (BEAKER) (test rlql=563) 3.05 M/ L 3.93-5.22 HEMOGLOBIN (BEAKER) (test jxre=712) 8.2 GM/DL 11.2-15.7 HEMATOCRIT (BEAKER) (test foig=671) 26.0 % 34.1-44.9 MEAN CORPUSCULAR VOLUME (BEAKER) (test ddwn=333) 85.2 fL 79.4-94.8 MEAN CORPUSCULAR HEMOGLOBIN (BEAKER) (test 26.9 pg 25.6-32.2 uypu=896) MEAN CORPUSCULAR HEMOGLOBIN CONC (BEAKER) (test 31.5 GM/DL 32.2-35.5 mtcn=186) RED CELL DISTRIBUTION WIDTH (BEAKER) (test 16.9 % 11.7-14.4 amqw=809) PLATELET COUNT (BEAKER) (test fkgj=418) 537 K/CU MM 150-450 MEAN PLATELET VOLUME (BEAKER) (test xwcq=736) 9.8 fL 9.4-12.3 NUCLEATED RED BLOOD CELLS (BEAKER) (test 0 /100 WBC 0-0 fuyx=038) NEUTROPHILS RELATIVE PERCENT (BEAKER) (test 82 % xdnk=909) LYMPHOCYTES RELATIVE PERCENT (BEAKER) (test 9 % jvtr=315) MONOCYTES RELATIVE PERCENT (BEAKER) (test 8 % vwca=439) EOSINOPHILS RELATIVE PERCENT (BEAKER) (test 0 % otzk=657) BASOPHILS RELATIVE PERCENT (BEAKER) (test 1 % ethg=493) NEUTROPHILS ABSOLUTE COUNT (BEAKER) (test 17.30 K/ L 1.56-6.13 rmbs=477) LYMPHOCYTES ABSOLUTE COUNT (BEAKER) (test 1.86 K/ L 1.18-3.74 gvrc=154) MONOCYTES ABSOLUTE COUNT (BEAKER) (test 1.58 K/ L 0.24-0.36 cxjg=645) EOSINOPHILS ABSOLUTE COUNT (BEAKER) (test 0.02 K/ L 0.04-0.36 mksp=462) BASOPHILS ABSOLUTE COUNT (BEAKER) (test 0.11 K/ L 0.01-0.08 otzy=123) IMMATURE GRANULOCYTES-RELATIVE PERCENT (BEAKER) 1 % 0-1 (test xovm=1029) POCT-GLUCOSE [id number] 00:46:00 Test Item Value Reference Range Comments POC-GLUCOSE METER (BEAKER) 144 mg/dL 70-110 TESTED AT [address] (test fuqy=2161) [facility] [address] BLOOD GAS, [id number] 18:49:00 Test Item Value Reference Range Comments PH ARTERIAL (BEAKER) (test cofg=160) 7.47 7.35-7.45 PCO2 ARTERIAL (BEAKER) (test queh=054) 50 mmHg 35-45 PO2 ARTERIAL (BEAKER) (test kxpv=019) 105 mmHg 80-90 O2 SATURATION ARTERIAL (BEAKER) (test exbm=013) 97.9 % 96.0-97.0 HCO3 ARTERIAL (BEAKER) (test ehet=866) 35 mmol/L 21-29 BASE EXCESS ARTERIAL (BEAKER) (test obil=567) 10.5 mmol/L -2.0-3.0 PATIENT TEMPERATURE (BEAKER) (test wtfx=3022) 37.5 C FIO2 (BEAKER) (test fpsh=7995) 60.0 % POCT-GLUCOSE [id number] 18:14:00 Test Item Value Reference Range Comments POC-GLUCOSE METER (BEAKER) 177 mg/dL 70-[address] [facility] [address] (test dvgn=8482) [place] [address] RAD, CHEST, 1 VIEW, NON [id number] 15:41:00Reason for exam:->low 02 saturationShould this be [...] Santana Verified Date/Time: 2017 15:41:20 Reading Location: [facility] C0[facility] Consult Reading Room BLOOD GAS, [id number] 14:58:00 Test Item Value Reference Range Comments PH VENOUS (BEAKER) (test cnmi=138) 7.41 7.32-7.42 PCO2 VENOUS (BEAKER) (test jhtw=238) 60 mmHg 41-51 PO2 VENOUS (BEAKER) (test ekvr=883) 46 mmHg 25-40 O2 SATURATION VENOUS (BEAKER) (test bcgl=904) 80.7 % 40.0-70.0 HCO3 VENOUS (BEAKER) (test eglc=505) 37 mmol/L 21-29 BASE EXCESS VENOUS (BEAKER) (test vytg=132) 11.3 mmol/L -2.0-3.0 PATIENT TEMPERATURE (BEAKER) (test vxgy=0610) 37.0 C FIO2 (BEAKER) (test rolc=6361) 60.0 % PROTHROMBIN [id number] 14:30:00 Test Item Value Reference Range Comments PROTIME (BEAKER) (test jqxj=415) 21.9 seconds 11.7-14.7 INR (BEAKER) (test eyxm=756) 1.9 <=5.9 RECOMMENDED COUMADIN/WARFARIN INR THERAPY RANGESSTANDARD DOSE: 2.0 - 3.0 Includes: PROPHYLAXIS forvenous thrombosis, systemic embolization; TREATMENT for venous thrombosis and/or pulmonary embolus.HIGH RISK: Target INR is 2.5-3.5 for patients with mechanical heart valves.BASIC METABOLIC [id number] 14:13: 00 Test Item Value Reference Range Comments SODIUM (BEAKER) (test 144 meq/L 136-145 obpo=066) POTASSIUM (BEAKER) (test 4.2 meq/L 3.5-5.1 pwpu=617) CHLORIDE (BEAKER) (test 104 meq/L 98-107 ddak=443) CO2 (BEAKER) (test 32 meq/L 22-29 mtso=080) BLOOD UREA NITROGEN 43 mg/dL 7-21 (BEAKER) (test zoqr=044) CREATININE (BEAKER) (test 0.88 mg/dL 0.57-1.25 gqwf=379) GLUCOSE RANDOM (BEAKER) 205 mg/dL 70-105 (test hisl=261) CALCIUM (BEAKER) (test 7.3 mg/dL 8.4-10.2 savj=509) EGFR (BEAKER) (test 66 mL/min/1.73 sq m ESTIMATED GFR IS NOT lwtp=0967) ACCURATE CREATININE CLEARANCE IN PREDICTING GLOMERULAR FILTRATION RATE. ESTIMATED GFR IS NOT APPLICABLE FOR DIALYSIS PATIENTS. HEPATIC FUNCTION [id number] 14:13:00 Test Item Value Reference Range Comments TOTAL PROTEIN (BEAKER) (test szai=691) 4.4 gm/dL 6.0-8.3 ALBUMIN (BEAKER) (test jetx=7387) 1.6 g/dL 3.5-5.0 BILIRUBIN TOTAL (BEAKER) (test mrko=111) 0.9 mg/dL 0.2-1.2 BILIRUBIN DIRECT (BEAKER) (test reyu=275) 0.6 mg/dL 0.1-0.5 ALKALINE PHOSPHATASE (BEAKER) (test uwvh=467) 82 U/L 40-150 AST (SGOT) (BEAKER) (test oprd=586) 28 U/L 5-34 ALT (SGPT) (BEAKER) (test rjlv=275) 14 U/L 6-55 [id number] 14:12:00 Test Item Value Reference Range Comments MAGNESIUM (BEAKER) (test pskq=714) 2.2 mg/dL 1.6-2.6 [id number] 14:09:00 Test Item Value Reference Range Comments PHOSPHORUS (BEAKER) (test mvzb=704) 3.2 mg/dL 2.3-4.7 CBC (HEMOGRAM ONLY)2017-11-01 13:59:00 Test Item Value Reference Range Comments WHITE BLOOD CELL COUNT (BEAKER) (test bkrn=130) 23.2 K/ L 3.5-10.5 RED BLOOD CELL COUNT (BEAKER) (test utod=704) 3.10 M/ L 3.93-5.22 HEMOGLOBIN (BEAKER) (test bnnb=543) 8.4 GM/DL 11.2-15.7 HEMATOCRIT (BEAKER) (test cedt=386) 26.2 % 34.1-44.9 MEAN CORPUSCULAR VOLUME (BEAKER) (test oros=708) 84.5 fL 79.4-94.8 MEAN CORPUSCULAR HEMOGLOBIN (BEAKER) (test 27.1 pg 25.6-32.2 ruvk=932) MEAN CORPUSCULAR HEMOGLOBIN CONC (BEAKER) (test 32.1 GM/DL 32.2-35.5 tvhv=492) RED CELL DISTRIBUTION WIDTH (BEAKER) (test 16.3 % 11.7-14.4 dqji=882) PLATELET COUNT (BEAKER) (test nkhu=191) 502 K/CU MM 150-450 MEAN PLATELET VOLUME (BEAKER) (test lyzf=808) 9.7 fL 9.4-12.3 NUCLEATED RED BLOOD CELLS (BEAKER) (test 0 /100 WBC 0-0 rmni=714) POCT-GLUCOSE [id number] 06:06:00 Test Item Value Reference Range Comments POC-GLUCOSE METER (BEAKER) 105 mg/dL 70-[address] [facility] [address] [facility] (test iufa=9593) [facility] [address] CALCIUM, [id number] 05:07:00 Test Item Value Reference Range Comments CALCIUM IONIZED (BEAKER) (test pnyw=968) 1.08 mmol/L 1.12-1.27 PH, BLOOD (BEAKER) (test lwjq=3472) 7.45 BASIC METABOLIC [id number] 04:19:00 Test Item Value Reference Range Comments SODIUM (BEAKER) (test 142 meq/L 136-145 rxfn=252) POTASSIUM (BEAKER) (test 3.8 meq/L 3.5-5.1 txyd=569) CHLORIDE (BEAKER) (test 97 meq/L 98-107 qwsf=524) CO2 (BEAKER) (test 37 meq/L 22-29 gsga=908) BLOOD UREA NITROGEN 42 mg/dL 7-21 (BEAKER) (test wxvv=972) CREATININE (BEAKER) (test 1.03 mg/dL 0.57-1.25 hjgg=741) GLUCOSE RANDOM (BEAKER) 139 mg/dL 70-105 (test smsm=312) CALCIUM (BEAKER) (test 7.6 mg/dL 8.4-10.2 lxjj=030) EGFR (BEAKER) (test 55 mL/min/1.73 sq m ESTIMATED GFR IS NOT fpdw=0786) ACCURATE CREATININE CLEARANCE IN PREDICTING GLOMERULAR FILTRATION RATE. ESTIMATED GFR IS NOT APPLICABLE FOR DIALYSIS PATIENTS. [id number] 04:11:00 Test Item Value Reference Range Comments PHOSPHORUS (BEAKER) (test kfge=663) 2.9 mg/dL 2.3-4.7 [id number] 04:11:00 Test Item Value Reference Range Comments MAGNESIUM (BEAKER) (test ykiz=337) 1.9 mg/dL 1.6-2.6 CBC W/PLT COUNT & AUTO [id number] 04:05:00 Test Item Value Reference Range Comments WHITE BLOOD CELL COUNT (BEAKER) (test rgqz=925) 18.8 K/ L 3.5-10.5 RED BLOOD CELL COUNT (BEAKER) (test uyzo=824) 3.09 M/ L 3.93-5.22 HEMOGLOBIN (BEAKER) (test bnmo=508) 8.3 GM/DL 11.2-15.7 HEMATOCRIT (BEAKER) (test fjbf=917) 25.6 % 34.1-44.9 MEAN CORPUSCULAR VOLUME (BEAKER) (test yirr=762) 82.8 fL 79.4-94.8 MEAN CORPUSCULAR HEMOGLOBIN (BEAKER) (test 26.9 pg 25.6-32.2 dpcs=193) MEAN CORPUSCULAR HEMOGLOBIN CONC (BEAKER) (test 32.4 GM/DL 32.2-35.5 oyhz=827) RED CELL DISTRIBUTION WIDTH (BEAKER) (test 16.0 % 11.7-14.4 nqoe=698) PLATELET COUNT (BEAKER) (test yfpo=872) 511 K/CU MM 150-450 MEAN PLATELET VOLUME (BEAKER) (test punq=308) 9.6 fL 9.4-12.3 NUCLEATED RED BLOOD CELLS (BEAKER) (test 0 /100 WBC 0-0 recb=381) NEUTROPHILS RELATIVE PERCENT (BEAKER) (test 79 % shsp=975) LYMPHOCYTES RELATIVE PERCENT (BEAKER) (test 8 % lqsz=100) MONOCYTES RELATIVE PERCENT (BEAKER) (test 9 % jesi=339) EOSINOPHILS RELATIVE PERCENT (BEAKER) (test 3 % cykm=254) BASOPHILS RELATIVE PERCENT (BEAKER) (test 1 % lcgi=074) NEUTROPHILS ABSOLUTE COUNT (BEAKER) (test 14.79 K/ L 1.56-6.13 ccry=095) LYMPHOCYTES ABSOLUTE COUNT (BEAKER) (test 1.42 K/ L 1.18-3.74 svup=931) MONOCYTES ABSOLUTE COUNT (BEAKER) (test 1.59 K/ L 0.24-0.36 nzjt=907) EOSINOPHILS ABSOLUTE COUNT (BEAKER) (test 0.64 K/ L 0.04-0.36 yafm=119) BASOPHILS ABSOLUTE COUNT (BEAKER) (test 0.12 K/ L 0.01-0.08 tpnw=856) IMMATURE GRANULOCYTES-RELATIVE PERCENT (BEAKER) 1 % 0-1 (test nupc=5441) POCT-GLUCOSE [id number] 00:36:00 Test Item Value Reference Range Comments POC-GLUCOSE METER (BEAKER) 145 mg/dL 70-110 TESTED AT [address] (test nozk=5757) [facility] [address] BASIC METABOLIC [id number] 22:49:00 Test Item Value Reference Range Comments SODIUM (BEAKER) (test 143 meq/L 136-145 pbho=545) POTASSIUM (BEAKER) (test 3.1 meq/L 3.5-5.1 fqxu=772) CHLORIDE (BEAKER) (test 97 meq/L 98-107 axnf=316) CO2 (BEAKER) (test 36 meq/L 22-29 lqgy=862) BLOOD UREA NITROGEN 40 mg/dL 7-21 (BEAKER) (test qlor=440) CREATININE (BEAKER) (test 1.03 mg/dL 0.57-1.25 ijrx=698) GLUCOSE RANDOM (BEAKER) 131 mg/dL 70-105 (test nwnt=216) CALCIUM (BEAKER) (test 7.5 mg/dL 8.4-10.2 lewq=004) EGFR (BEAKER) (test 55 mL/min/1.73 sq m ESTIMATED GFR IS NOT gixm=9521) ACCURATE CREATININE CLEARANCE IN PREDICTING GLOMERULAR FILTRATION RATE. ESTIMATED GFR IS NOT APPLICABLE FOR DIALYSIS PATIENTS. POCT-GLUCOSE [id number] 17:45:00 Test Item Value Reference Range Comments POC-GLUCOSE METER (BEAKER) 129 mg/dL 70-110 TESTED AT [address] (test egkv=9075) [place] [address] M[facility]CELL[facility]OUS [facility] [id number] 14:46:00 Test Item Value Reference Range Comments SCAN RESULT (test abcw=[id number]) Result comments: Coagulase Negative Staphylococcus Species (CoNS) [...] sample was tested at the [facility] using the [employer] Blood Culture ID Panel. This test is FDA cleared for in vitro diagnostic use and has been verified and approved by the [facility] for clinical use. Reference Range: Not DetectedANTI-NUCLEAR ANTIBODY (BECCA) 13:59:00 Test Item Value Reference Range Comments ANTI-NUCLEAR ANTIBODY (BECCA) (BEAKER) (test Negative Negative txiw=114) POCT-GLUCOSE [id number] 11:45:00 Test Item Value Reference Range Comments POC-GLUCOSE METER (BEAKER) 152 mg/dL 70-110 TESTED AT [address] (test cgsd=8593) [place] [address] BASIC METABOLIC [id number] 04:44:00 Test Item Value Reference Range Comments SODIUM (BEAKER) (test 139 meq/L 136-145 xhxe=935) POTASSIUM (BEAKER) (test 3.2 meq/L 3.5-5.1 btsw=895) CHLORIDE (BEAKER) (test 99 meq/L 98-107 jzef=984) CO2 (BEAKER) (test 32 meq/L 22-29 thbe=640) BLOOD UREA NITROGEN 35 mg/dL 7-21 (BEAKER) (test cvwk=703) CREATININE (BEAKER) (test 1.24 mg/dL 0.57-1.25 iczg=769) GLUCOSE RANDOM (BEAKER) 140 mg/dL 70-105 (test kwaz=797) CALCIUM (BEAKER) (test 7.6 mg/dL 8.4-10.2 zmtt=018) EGFR (BEAKER) (test 44 mL/min/1.73 sq m ESTIMATED GFR IS NOT tfks=5847) ACCURATE CREATININE CLEARANCE IN PREDICTING GLOMERULAR FILTRATION RATE. ESTIMATED GFR IS NOT APPLICABLE FOR DIALYSIS PATIENTS. [id number] 04:40:00 Test Item Value Reference Range Comments PHOSPHORUS (BEAKER) (test hflb=701) 2.3 mg/dL 2.3-4.7 [id number] 04:40:00 Test Item Value Reference Range Comments MAGNESIUM (BEAKER) (test uewd=176) 2.1 mg/dL 1.6-2.6 CBC W/PLT COUNT & AUTO [id number] 04:21:00 Test Item Value Reference Range Comments WHITE BLOOD CELL COUNT (BEAKER) (test aboe=591) 14.9 K/ L 3.5-10.5 RED BLOOD CELL COUNT (BEAKER) (test ybfo=189) 2.81 M/ L 3.93-5.22 HEMOGLOBIN (BEAKER) (test ohbv=512) 7.7 GM/DL 11.2-15.7 HEMATOCRIT (BEAKER) (test qncz=715) 23.3 % 34.1-44.9 MEAN CORPUSCULAR VOLUME (BEAKER) (test wngj=839) 82.9 fL 79.4-94.8 MEAN CORPUSCULAR HEMOGLOBIN (BEAKER) (test 27.4 pg 25.6-32.2 rrgm=050) MEAN CORPUSCULAR HEMOGLOBIN CONC (BEAKER) (test 33.0 GM/DL 32.2-35.5 cxce=747) RED CELL DISTRIBUTION WIDTH (BEAKER) (test 15.6 % 11.7-14.4 dija=823) PLATELET COUNT (BEAKER) (test rhak=322) 466 K/CU MM 150-450 MEAN PLATELET VOLUME (BEAKER) (test qfca=981) 9.6 fL 9.4-12.3 NUCLEATED RED BLOOD CELLS (BEAKER) (test 0 /100 WBC 0-0 drgt=483) NEUTROPHILS RELATIVE PERCENT (BEAKER) (test 79 % honj=317) LYMPHOCYTES RELATIVE PERCENT (BEAKER) (test 8 % fzfo=835) MONOCYTES RELATIVE PERCENT (BEAKER) (test 8 % mmzn=136) EOSINOPHILS RELATIVE PERCENT (BEAKER) (test 4 % phrd=941) BASOPHILS RELATIVE PERCENT (BEAKER) (test 0 % ouhp=255) NEUTROPHILS ABSOLUTE COUNT (BEAKER) (test 11.81 K/ L 1.56-6.13 rdnt=611) LYMPHOCYTES ABSOLUTE COUNT (BEAKER) (test 1.14 K/ L 1.18-3.74 lqnx=971) MONOCYTES ABSOLUTE COUNT (BEAKER) (test 1.14 K/ L 0.24-0.36 tsyd=061) EOSINOPHILS ABSOLUTE COUNT (BEAKER) (test 0.57 K/ L 0.04-0.36 gksk=394) BASOPHILS ABSOLUTE COUNT (BEAKER) (test 0.05 K/ L 0.01-0.08 sxhe=492) IMMATURE GRANULOCYTES-RELATIVE PERCENT (BEAKER) 1 % 0-1 (test swti=0554) POCT-GLUCOSE [id number] 00:13:00 Test Item Value Reference Range Comments POC-GLUCOSE METER (BEAKER) 136 mg/dL 70-110 TESTED AT [address] (test wpwy=8780) [facility] [address] BASIC METABOLIC [id number] 19:05:00 Test Item Value Reference Range Comments SODIUM (BEAKER) (test 138 meq/L 136-145 mrzw=219) POTASSIUM (BEAKER) (test 3.3 meq/L 3.5-5.1 zlhz=772) CHLORIDE (BEAKER) (test 99 meq/L 98-107 ahys=004) CO2 (BEAKER) (test 32 meq/L 22-29 yhld=736) BLOOD UREA NITROGEN 32 mg/dL 7-21 (BEAKER) (test nada=785) CREATININE (BEAKER) (test 1.35 mg/dL 0.57-1.25 wojc=227) GLUCOSE RANDOM (BEAKER) 111 mg/dL 70-105 (test hsuv=860) CALCIUM (BEAKER) (test 7.7 mg/dL 8.4-10.2 hccb=917) EGFR (BEAKER) (test 40 mL/min/1.73 sq m ESTIMATED GFR IS NOT iqxu=1025) ACCURATE CREATININE CLEARANCE IN PREDICTING GLOMERULAR FILTRATION RATE. ESTIMATED GFR IS NOT APPLICABLE FOR DIALYSIS PATIENTS. POCT-GLUCOSE [id number] 18:48:00 Test Item Value Reference Range Comments POC-GLUCOSE METER (BEAKER) 128 mg/dL 70-[address] [facility] [address] [facility] (test tmeo=8274) [facility] [address] EOSINOPHIL SMEAR, [id number] 16:07:00 Test Item Value Reference Range Comments EOSINOPHIL SMEAR, URINE Rare EOS=less than 5% No EOS seen Many yeasts seen (BEAKER) (test fedx=8697) WBCs seen are EOS URINALYSIS W/ [id number] 14:34:00 Test Item Value Reference Range Comments COLOR (BEAKER) (test vpqb=748) Yellow CLARITY (BEAKER) (test ysrl=838) Hazy SPECIFIC GRAVITY UA (BEAKER) (test deal=037) 1.009 1.001-1.035 PH UA (BEAKER) (test njwq=574) 6.5 5.0-8.0 PROTEIN UA (BEAKER) (test hbms=148) 20 mg/dL Negative GLUCOSE UA (BEAKER) (test dshh=631) Negative Negative KETONES UA (BEAKER) (test sjpw=777) Negative Negative BILIRUBIN UA (BEAKER) (test xxgz=920) Negative Negative BLOOD UA (BEAKER) (test thdb=893) Small Negative NITRITE UA (BEAKER) (test rybt=903) Negative Negative LEUKOCYTE ESTERASE UA (BEAKER) (test ygsy=113) Large Negative UROBILINOGEN UA (BEAKER) (test owim=713) 0.2 mg/dL 0.2-1.0 RBC UA (BEAKER) (test gkjy=643) 5 /HPF WBC UA (BEAKER) (test vbgh=050) 149 /HPF MUCUS (BEAKER) (test otco=1701) Rare SOURCE(BEAKER) (test dttj=6371) Urine, Shah SODIUM, RANDOM [id number] 13:51:00 Test Item Value Reference Range Comments SODIUM URINE (BEAKER) (test qwdm=630) 82 meq/L Reference Range: No NormalsPOCT-GLUCOSE [id number] 12:49:00 Test Item Value Reference Range Comments POC-GLUCOSE METER (BEAKER) 128 mg/dL 70-[address] [facility] [address] (test uheg=9129) [facility] [address] BASIC METABOLIC [id number] 07:39:00 Test Item Value Reference Range Comments SODIUM (BEAKER) (test 134 meq/L 136-145 gyhw=026) POTASSIUM (BEAKER) (test 3.6 meq/L 3.5-5.1 fpgo=888) CHLORIDE (BEAKER) (test 100 meq/L 98-107 hgsy=889) CO2 (BEAKER) (test 28 meq/L 22-29 lwij=212) BLOOD UREA NITROGEN 30 mg/dL 7-21 (BEAKER) (test loly=669) CREATININE (BEAKER) (test 1.42 mg/dL 0.57-1.25 kmop=563) GLUCOSE RANDOM (BEAKER) 117 mg/dL 70-105 (test bwhc=648) CALCIUM (BEAKER) (test 7.3 mg/dL 8.4-10.2 pckb=750) EGFR (BEAKER) (test 38 mL/min/1.73 sq m ESTIMATED GFR IS NOT oxqc=3773) ACCURATE CREATININE CLEARANCE IN PREDICTING GLOMERULAR FILTRATION RATE. ESTIMATED GFR IS NOT APPLICABLE FOR DIALYSIS PATIENTS. CBC W/PLT COUNT & AUTO [id number] 06:37:00 Test Item Value Reference Range Comments WHITE BLOOD CELL COUNT (BEAKER) (test ohwu=719) 15.6 K/ L 3.5-10.5 RED BLOOD CELL COUNT (BEAKER) (test fltz=283) 2.86 M/ L 3.93-5.22 HEMOGLOBIN (BEAKER) (test kmmf=752) 7.7 GM/DL 11.2-15.7 HEMATOCRIT (BEAKER) (test slxq=414) 23.7 % 34.1-44.9 MEAN CORPUSCULAR VOLUME (BEAKER) (test cpzi=346) 82.9 fL 79.4-94.8 MEAN CORPUSCULAR HEMOGLOBIN (BEAKER) (test 26.9 pg 25.6-32.2 cbpa=470) MEAN CORPUSCULAR HEMOGLOBIN CONC (BEAKER) (test 32.5 GM/DL 32.2-35.5 soio=403) RED CELL DISTRIBUTION WIDTH (BEAKER) (test 15.6 % 11.7-14.4 ouwo=214) PLATELET COUNT (BEAKER) (test yixs=439) 442 K/CU MM 150-450 MEAN PLATELET VOLUME (BEAKER) (test xxic=847) 9.6 fL 9.4-12.3 NUCLEATED RED BLOOD CELLS (BEAKER) (test 0 /100 WBC 0-0 sveg=908) NEUTROPHILS RELATIVE PERCENT (BEAKER) (test 80 % lmxi=210) LYMPHOCYTES RELATIVE PERCENT (BEAKER) (test 8 % szph=224) MONOCYTES RELATIVE PERCENT (BEAKER) (test 7 % cmpw=376) EOSINOPHILS RELATIVE PERCENT (BEAKER) (test 4 % wrko=221) BASOPHILS RELATIVE PERCENT (BEAKER) (test 1 % ntlf=993) NEUTROPHILS ABSOLUTE COUNT (BEAKER) (test 12.51 K/ L 1.56-6.13 jzqc=531) LYMPHOCYTES ABSOLUTE COUNT (BEAKER) (test 1.17 K/ L 1.18-3.74 cvol=097) MONOCYTES ABSOLUTE COUNT (BEAKER) (test 1.09 K/ L 0.24-0.36 qtjk=810) EOSINOPHILS ABSOLUTE COUNT (BEAKER) (test 0.58 K/ L 0.04-0.36 vrap=352) BASOPHILS ABSOLUTE COUNT (BEAKER) (test 0.08 K/ L 0.01-0.08 jlop=555) IMMATURE GRANULOCYTES-RELATIVE PERCENT (BEAKER) 1 % 0-1 (test alzm=2958) POCT-GLUCOSE [id number] 06:27:00 Test Item Value Reference Range Comments POC-GLUCOSE METER (BEAKER) 136 mg/dL 70-[address] [facility] [address] [facility] (test qacv=6753) [facility] [address] [id number] 05:48:00 Test Item Value Reference Range Comments PHOSPHORUS (BEAKER) (test qqwq=196) 2.6 mg/dL 2.3-4.7 [id number] 05:48:00 Test Item Value Reference Range Comments MAGNESIUM (BEAKER) (test gzde=529) 2.1 mg/dL 1.6-2.6 POCT-GLUCOSE [id number] 00:10:00 Test Item Value Reference Range Comments POC-GLUCOSE METER (BEAKER) 118 mg/dL 70-110 TESTED AT [address] (test cdqj=0363) [facility] [address] URINALYSIS W/ REFLEX URINE [id number] 19:35:00 Test Item Value Reference Range Comments COLOR (BEAKER) (test tfyr=633) Light Yellow CLARITY (BEAKER) (test ekta=017) Hazy SPECIFIC GRAVITY UA (BEAKER) (test fkmo=641) 1.008 1.001-1.035 PH UA (BEAKER) (test ebqj=761) 6.0 5.0-8.0 PROTEIN UA (BEAKER) (test ciks=268) Negative Negative GLUCOSE UA (BEAKER) (test pnxa=972) Negative Negative KETONES UA (BEAKER) (test bvrq=805) Negative Negative BILIRUBIN UA (BEAKER) (test nckp=635) Negative Negative BLOOD UA (BEAKER) (test uwts=857) Small Negative NITRITE UA (BEAKER) (test rgwg=989) Negative Negative LEUKOCYTE ESTERASE UA (BEAKER) (test enva=449) Moderate Negative UROBILINOGEN UA (BEAKER) (test lkfi=386) 0.2 mg/dL 0.2-1.0 RBC UA (BEAKER) (test szds=532) 17 /HPF WBC UA (BEAKER) (test jbbq=494) 23 /HPF BACTERIA (BEAKER) (test zctg=039) Occasional MUCUS (BEAKER) (test mplo=3775) Occasional SOURCE(BEAKER) (test wgeo=2144) POCT-GLUCOSE [id number] 18:41:00 Test Item Value Reference Range Comments POC-GLUCOSE METER (BEAKER) 114 mg/dL 70-110 TESTED AT [address] (test eewn=6282) [place] [id number] RAD, CHEST, 1 VIEW, NON [id number] 15:55:00Reason for exam:->line placementFINAL REPORT Chest, one [...] MDReport Verified Date/Time: 10/29/2017 15:55:41 Reading Location: [facility] C013Y CT Body Reading Room CT, CTA [id number] 12:50:00CTA abdomen and pelvis down to upper [...] Third spacing of fluid. Signed: [facility] Verified Date/Time: 10/29/2017 12:50:17 Reading Location: [facility] P047 Cardiology MRI POCT-GLUCOSE [id number] 12:27:00 Test Item Value Reference Range Comments POC-GLUCOSE METER (BEAKER) 119 mg/dL 70-[address] [facility] [address] [facility] (test grzw=4176) [facility] [address] POCT-GLUCOSE [id number] 06:40:00 Test Item Value Reference Range Comments POC-GLUCOSE METER (BEAKER) 113 mg/dL 70-[address] [facility] [address] [facility] (test nkrd=9289) [facility] [address] BASIC METABOLIC [id number] 04:26:00 Test Item Value Reference Range Comments SODIUM (BEAKER) (test 131 meq/L 136-145 wolj=752) POTASSIUM (BEAKER) (test 4.1 meq/L 3.5-5.1 hdke=414) CHLORIDE (BEAKER) (test 101 meq/L 98-107 rktg=189) CO2 (BEAKER) (test 24 meq/L 22-29 bayb=651) BLOOD UREA NITROGEN 23 mg/dL 7-21 (BEAKER) (test mxqc=851) CREATININE (BEAKER) (test 1.27 mg/dL 0.57-1.25 fvrq=226) GLUCOSE RANDOM (BEAKER) 98 mg/dL 70-105 (test ehnj=015) CALCIUM (BEAKER) (test 7.0 mg/dL 8.4-10.2 vevx=793) EGFR (BEAKER) (test 43 mL/min/1.73 sq m ESTIMATED GFR IS NOT ssgs=1278) ACCURATE CREATININE CLEARANCE IN PREDICTING GLOMERULAR FILTRATION RATE. ESTIMATED GFR IS NOT APPLICABLE FOR DIALYSIS PATIENTS. CBC W/PLT COUNT & AUTO [id number] 04:11:00 Test Item Value Reference Range Comments WHITE BLOOD CELL COUNT (BEAKER) (test xwof=073) 17.2 K/ L 3.5-10.5 RED BLOOD CELL COUNT (BEAKER) (test xrii=481) 2.79 M/ L 3.93-5.22 HEMOGLOBIN (BEAKER) (test mvws=977) 7.5 GM/DL 11.2-15.7 HEMATOCRIT (BEAKER) (test uibm=657) 23.2 % 34.1-44.9 MEAN CORPUSCULAR VOLUME (BEAKER) (test ukgf=455) 83.2 fL 79.4-94.8 MEAN CORPUSCULAR HEMOGLOBIN (BEAKER) (test 26.9 pg 25.6-32.2 okwp=132) MEAN CORPUSCULAR HEMOGLOBIN CONC (BEAKER) (test 32.3 GM/DL 32.2-35.5 nely=968) RED CELL DISTRIBUTION WIDTH (BEAKER) (test 15.4 % 11.7-14.4 vqlg=677) PLATELET COUNT (BEAKER) (test jvlk=110) 406 K/CU MM 150-450 MEAN PLATELET VOLUME (BEAKER) (test pzns=917) 9.8 fL 9.4-12.3 NUCLEATED RED BLOOD CELLS (BEAKER) (test 0 /100 WBC 0-0 bvbr=729) NEUTROPHILS RELATIVE PERCENT (BEAKER) (test 81 % rbll=730) LYMPHOCYTES RELATIVE PERCENT (BEAKER) (test 7 % zldz=570) MONOCYTES RELATIVE PERCENT (BEAKER) (test 7 % udwe=242) EOSINOPHILS RELATIVE PERCENT (BEAKER) (test 4 % gojn=492) BASOPHILS RELATIVE PERCENT (BEAKER) (test 1 % bwoe=282) NEUTROPHILS ABSOLUTE COUNT (BEAKER) (test 13.93 K/ L 1.56-6.13 bqrx=276) LYMPHOCYTES ABSOLUTE COUNT (BEAKER) (test 1.15 K/ L 1.18-3.74 jmmd=736) MONOCYTES ABSOLUTE COUNT (BEAKER) (test 1.26 K/ L 0.24-0.36 uufn=705) EOSINOPHILS ABSOLUTE COUNT (BEAKER) (test 0.63 K/ L 0.04-0.36 yqxx=798) BASOPHILS ABSOLUTE COUNT (BEAKER) (test 0.08 K/ L 0.01-0.08 gxrz=932) IMMATURE GRANULOCYTES-RELATIVE PERCENT (BEAKER) 1 % 0-1 (test nvih=6707) [id number] 04:00:00 Test Item Value Reference Range Comments TRIGLYCERIDES (BEAKER) (test woel=579) 200 mg/dL TRIGLYCERIDE REFERENCE RANGELow Risk <150Borderline Risk 150-199High Risk 200-499Very High Risk>=[id number] 04:00:00 Test Item Value Reference Range Comments MAGNESIUM (BEAKER) (test nypv=715) 1.6 mg/dL 1.6-2.6 [id number] 04:00:00 Test Item Value Reference Range Comments PHOSPHORUS (BEAKER) (test yols=406) 3.1 mg/dL 2.3-4.7 POCT-GLUCOSE [id number] 00:39:00 Test Item Value Reference Range Comments POC-GLUCOSE METER (BEAKER) 116 mg/dL 70-110 TESTED AT [address] (test grbk=1971) [place] [address] POCT-GLUCOSE [id number] 18:02:00 Test Item Value Reference Range Comments POC-GLUCOSE METER (BEAKER) 97 mg/dL 70-110 TESTED AT [address] (test crgj=8822) [place] [address] RAD, CHEST, 1 VIEW, NON [id number] 13:06:00Reason for exam:->concern for PNAShould this be [...] in satisfactory radiographic position. Signed: Alon Mars Verified Date/Time: 10/28/2017 13:06: 52 Reading Location: [facility] B1 C013W Consult Reading Room POCT-GLUCOSE [id number] 11 :35:00 Test Item Value Reference Range Comments POC-GLUCOSE METER (BEAKER) 115 mg/dL 70-110 TESTED AT [address] (test xrax=2332) [place] [address] URINALYSIS W/ [id number] 11:02:00 Test Item Value Reference Range Comments COLOR (BEAKER) (test motl=315) [place] CLARITY (BEAKER) (test icwj=177) Cloudy SPECIFIC GRAVITY UA (BEAKER) (test qwsd=413) 1.017 1.001-1.035 PH UA (BEAKER) (test nmdb=781) 6.0 5.0-8.0 PROTEIN UA (BEAKER) (test rtub=510) 50 mg/dL Negative GLUCOSE UA (BEAKER) (test jlyp=580) Negative Negative KETONES UA (BEAKER) (test meop=558) Negative Negative BILIRUBIN UA (BEAKER) (test owqd=809) Positive Negative BLOOD UA (BEAKER) (test ftux=018) Small Negative NITRITE UA (BEAKER) (test zzzu=055) Negative Negative LEUKOCYTE ESTERASE UA (BEAKER) (test nntm=975) Moderate Negative UROBILINOGEN UA (BEAKER) (test rwux=431) 2.0 mg/dL 0.2-1.0 RBC UA (BEAKER) (test ubrp=936) 41 /HPF WBC UA (BEAKER) (test balj=331) 68 /HPF SOURCE(BEAKER) (test qznw=9837) Urine, Shah RAD, ABDOMEN/KUB, 1 VIEW [id number] 07:33:00Reason for exam:->sboFINAL REPORT Abdomen one view [...] Mars Verified Date/Time: 10/28/2017 07:33:35 Reading Location: [facility] Radiology Reading Room POCT-GLUCOSE [id number] 05:58:00 Test Item Value Reference Range Comments POC-GLUCOSE METER (BEAKER) 122 mg/dL 70-110 TESTED AT [address] (test pypb=5540) [facility] [address] BASIC METABOLIC [id number] 04:27:00 Test Item Value Reference Range Comments SODIUM (BEAKER) (test 132 meq/L 136-145 btum=398) POTASSIUM (BEAKER) (test 4.2 meq/L 3.5-5.1 ybie=143) CHLORIDE (BEAKER) (test 104 meq/L 98-107 scjg=068) CO2 (BEAKER) (test 25 meq/L 22-29 poog=279) BLOOD UREA NITROGEN 18 mg/dL 7-21 (BEAKER) (test bmsv=664) CREATININE (BEAKER) (test 0.73 mg/dL 0.57-1.25 zxyi=431) GLUCOSE RANDOM (BEAKER) 127 mg/dL 70-105 (test nzen=192) CALCIUM (BEAKER) (test 6.6 mg/dL 8.4-10.2 qbsp=737) EGFR (BEAKER) (test 82 mL/min/1.73 sq m ESTIMATED GFR IS NOT seyd=2036) ACCURATE CREATININE CLEARANCE IN PREDICTING GLOMERULAR FILTRATION RATE. ESTIMATED GFR IS NOT APPLICABLE FOR DIALYSIS PATIENTS. [id number] 04:24:00 Test Item Value Reference Range Comments PHOSPHORUS (BEAKER) (test xdxt=703) 3.0 mg/dL 2.3-4.7 [id number] 04:24:00 Test Item Value Reference Range Comments MAGNESIUM (BEAKER) (test woll=696) 1.8 mg/dL 1.6-2.6 CBC W/PLT COUNT & AUTO [id number] 03:53:00 Test Item Value Reference Range Comments WHITE BLOOD CELL COUNT (BEAKER) (test rtbc=205) 19.5 K/ L 3.5-10.5 RED BLOOD CELL COUNT (BEAKER) (test qyel=561) 2.87 M/ L 3.93-5.22 HEMOGLOBIN (BEAKER) (test lpgv=152) 7.9 GM/DL 11.2-15.7 HEMATOCRIT (BEAKER) (test zjml=552) 23.8 % 34.1-44.9 MEAN CORPUSCULAR VOLUME (BEAKER) (test pilj=965) 82.9 fL 79.4-94.8 MEAN CORPUSCULAR HEMOGLOBIN (BEAKER) (test 27.5 pg 25.6-32.2 svjr=677) MEAN CORPUSCULAR HEMOGLOBIN CONC (BEAKER) (test 33.2 GM/DL 32.2-35.5 hevl=042) RED CELL DISTRIBUTION WIDTH (BEAKER) (test 15.6 % 11.7-14.4 djeq=552) PLATELET COUNT (BEAKER) (test uaah=202) 349 K/CU MM 150-450 MEAN PLATELET VOLUME (BEAKER) (test gqxe=403) 10.1 fL 9.4-12.3 NUCLEATED RED BLOOD CELLS (BEAKER) (test 0 /100 WBC 0-0 ahiw=259) NEUTROPHILS RELATIVE PERCENT (BEAKER) (test 84 % xlxu=475) LYMPHOCYTES RELATIVE PERCENT (BEAKER) (test 7 % fzto=686) MONOCYTES RELATIVE PERCENT (BEAKER) (test 8 % fbjg=098) EOSINOPHILS RELATIVE PERCENT (BEAKER) (test 1 % tevn=179) BASOPHILS RELATIVE PERCENT (BEAKER) (test 0 % ffws=223) NEUTROPHILS ABSOLUTE COUNT (BEAKER) (test 16.27 K/ L 1.56-6.13 mysm=660) LYMPHOCYTES ABSOLUTE COUNT (BEAKER) (test 1.32 K/ L 1.18-3.74 ozdt=712) MONOCYTES ABSOLUTE COUNT (BEAKER) (test 1.51 K/ L 0.24-0.36 ubss=644) EOSINOPHILS ABSOLUTE COUNT (BEAKER) (test 0.22 K/ L 0.04-0.36 tvus=109) BASOPHILS ABSOLUTE COUNT (BEAKER) (test 0.06 K/ L 0.01-0.08 tybn=061) IMMATURE GRANULOCYTES-RELATIVE PERCENT (BEAKER) 1 % 0-1 (test ygzh=5417) COMPREHENSIVE METABOLIC [id number] 21:24:00 Test Item Value Reference Range Comments TOTAL PROTEIN (BEAKER) 3.6 gm/dL 6.0-8.3 (test fbzm=638) ALBUMIN (BEAKER) (test 1.5 g/dL 3.5-5.0 quqn=2798) ALKALINE PHOSPHATASE 43 U/L 40-150 (BEAKER) (test uvjb=027) BILIRUBIN TOTAL (BEAKER) 2.0 mg/dL 0.2-1.2 (test shkz=850) SODIUM (BEAKER) (test 131 meq/L 136-145 ylkz=068) POTASSIUM (BEAKER) (test 4.6 meq/L 3.5-5.1 czts=577) CHLORIDE (BEAKER) (test 101 meq/L 98-107 buco=349) CO2 (BEAKER) (test 25 meq/L 22-29 wtki=695) BLOOD UREA NITROGEN 16 mg/dL 7-21 (BEAKER) (test vjhl=231) CREATININE (BEAKER) (test 0.65 mg/dL 0.57-1.25 llwm=512) GLUCOSE RANDOM (BEAKER) 109 mg/dL 70-105 (test uirc=997) CALCIUM (BEAKER) (test 6.5 mg/dL 8.4-10.2 oxqy=140) AST (SGOT) (BEAKER) (test 22 U/L 5-34 rjkr=402) ALT (SGPT) (BEAKER) (test 10 U/L 6-55 hzrv=127) EGFR (BEAKER) (test 93 mL/min/1.73 sq m ESTIMATED GFR IS NOT djpt=3763) ACCURATE CREATININE CLEARANCE IN PREDICTING GLOMERULAR FILTRATION RATE. ESTIMATED GFR IS NOT APPLICABLE FOR DIALYSIS PATIENTS. [id number] 21:19:00 Test Item Value Reference Range Comments PHOSPHORUS (BEAKER) (test tapd=661) 2.6 mg/dL 2.3-4.7 [id number] 21:19:00 Test Item Value Reference Range Comments MAGNESIUM (BEAKER) (test zlyn=409) 1.6 mg/dL 1.6-2.6 LACTIC ACID, VENOUS, WHOLE [id number] 21:16:00 Test Item Value Reference Range Comments LACTATE BLOOD VENOUS (2) (BEAKER) (test 1.2 mmol/L 0.5-2.2 uulg=7265) Effective 01/21/2016: Units/Reference Range ChangeNew: 0.5-2.2 mmol/L Previous: 5 -20 mg/dLCBC W/PLT COUNT & AUTO [id number] 21:07:00 Test Item Value Reference Range Comments WHITE BLOOD CELL COUNT (BEAKER) (test txca=627) 23.9 K/ L 3.5-10.5 RED BLOOD CELL COUNT (BEAKER) (test cfcq=500) 3.73 M/ L 3.93-5.22 HEMOGLOBIN (BEAKER) (test hbqc=247) 10.1 GM/DL 11.2-15.7 HEMATOCRIT (BEAKER) (test biyt=670) 30.7 % 34.1-44.9 MEAN CORPUSCULAR VOLUME (BEAKER) (test aykg=620) 82.3 fL 79.4-94.8 MEAN CORPUSCULAR HEMOGLOBIN (BEAKER) (test 27.1 pg 25.6-32.2 sluk=748) MEAN CORPUSCULAR HEMOGLOBIN CONC (BEAKER) (test 32.9 GM/DL 32.2-35.5 fprk=171) RED CELL DISTRIBUTION WIDTH (BEAKER) (test 15.6 % 11.7-14.4 cryt=563) PLATELET COUNT (BEAKER) (test umlb=329) 422 K/CU MM 150-450 MEAN PLATELET VOLUME (BEAKER) (test vffn=531) 10.3 fL 9.4-12.3 NUCLEATED RED BLOOD CELLS (BEAKER) (test 0 /100 WBC 0-0 zatj=415) NEUTROPHILS RELATIVE PERCENT (BEAKER) (test 84 % pyxw=407) LYMPHOCYTES RELATIVE PERCENT (BEAKER) (test 7 % vvia=916) MONOCYTES RELATIVE PERCENT (BEAKER) (test 8 % whsw=565) EOSINOPHILS RELATIVE PERCENT (BEAKER) (test 0 % nbgl=016) BASOPHILS RELATIVE PERCENT (BEAKER) (test 0 % vrnq=640) NEUTROPHILS ABSOLUTE COUNT (BEAKER) (test 20.10 K/ L 1.56-6.13 ozgb=621) LYMPHOCYTES ABSOLUTE COUNT (BEAKER) (test 1.64 K/ L 1.18-3.74 krpk=684) MONOCYTES ABSOLUTE COUNT (BEAKER) (test 1.86 K/ L 0.24-0.36 ewle=409) EOSINOPHILS ABSOLUTE COUNT (BEAKER) (test 0.03 K/ L 0.04-0.36 qoef=068) BASOPHILS ABSOLUTE COUNT (BEAKER) (test 0.08 K/ L 0.01-0.08 ekpr=913) IMMATURE GRANULOCYTES-RELATIVE PERCENT (BEAKER) 1 % 0-1 (test kctl=5268)
[2018-01-29] MEDS ORDERED: NA CHLORIDE 0.9% 1,000 ML ONE ×2 (17:21→19:35)
[2018-01-29] MEDS ORDERED: ONDANSETRON 4 MG/2 ML VIAL ONE (17:21)
[2018-01-29] MEDS ORDERED: MORPHINE 4 MG/ML SYR ONE (17:21)
[2018-01-29 17:46] LABS: Protime INR 1.08
[2018-01-29 17:48] LABS: Absolute Lymphocytes (CBC) 3.3 K/uL (0.7-4.9); Absolute Monocytes 0.5 K/uL (0.1-1.3); Absolute Neutrophil 4.5 K/uL (1.8-8.0); Basophils % 0.8 % (0-1.3); Eosinophils % 0.8 % (0-4.4); Hematocrit 34.9 % (36.0-45.0); Lymphocytes % 39.3 % (15.3-44.8); MCH 26.9 pg (27.0-35.0); MCV 84.4 fL (80-100); MPV 6.9 fL (7.6-11.3); Monocytes % 5.5 % (3.3-12.3); RBC Red Blood Cell Count 4.14 M/uL (3.86-4.86)
[2018-01-29 17:51] LABS: Bicarbonate 26 mEq/L (21-31); Glucose Level 127 mg/dL (65-120); Potassium 3.1 mEq/L (3.6-5.0); Sodium Level 143 mEq/L (135-145)
--- NOTE | 2018-01-29 17:55 | RAD REPORT ---
EXAM DESCRIPTION: CT - Abdomen Pelvis Wo Contrast - 01/29/2018 5:43 pm CLINICAL HISTORY: Abdominal pain. COMPARISON: 12/24/2017, 10/24/2017 TECHNIQUE: CT imaging of the abdomen and pelvis was performed without contrast. Solid organ, bowel a nd vascular assessment is limited due to lack of IV and oral contrast. All CT scans are performed using dose optimization technique as appropriate and may include automated exposure control or mA/KV adjustment according to patient size. FINDINGS: The lower lung valverde are clear. Diffuse fatty liver is seen. The spleen contains multiple calcified granulomas. Adrenal glands and ki dneys are within normal limits. 4 cm right renal cyst noted. Complex postsurgical changes are present in the abdomen. Lack of contrast both oral and IV significan tly limits assessment of the anatomy and bowel loops, however there is no evidence of bowel obstructi on or free air. Left lower quadrant ostomy noted. 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 Aortoiliac atherosclerosis. No fracture seen. No aggressive marrow lesion. IMPRESSION: Complex postsurgical anatomy is noted in the abdomen, however full assessment is difficu lt due to the lack of oral and IV contrast. A bowel obstruction is not observed. No free intraperiton eal air is seen. A limited non-contrast examination was performed as detailed.
[2018-01-29 17:57] LABS: ALT/SGPT 17 IU/L (10-60); AST/SGOT 23 IU/L (10-42); Albumin 2.5 g/dL (3.2-5.5); Alkaline Phosphatase 139 IU/L (42-121); BUN Blood Urea Nitrogen 10 mg/dL (6-20); Bilirubin Direct < 0.1 mg/dL (0-0.2); Bilirubin Total 0.2 mg/dL (0.3-1.2); Magnesium 1.9 mg/dL (1.8-2.5)
--- NOTE | 2018-01-29 17:59 | RAD REPORT ---
EXAM DESCRIPTION: RAD - Chest Single View - 01/29/2018 5:52 pm CLINICAL HISTORY: Chest pain. COMPARISON: 12/24/2017 FINDINGS: Portable technique limits examination quality. The lungs are mildly emphysematous but clear. The heart is normal in size. No displaced fractures. IMPRESSION: Mild COPD.
[2018-01-29] MEDS ORDERED: KETOROLAC 30 MG/ML INJ ONE (18:13)
[2018-01-29 18:38] LABS: Urine Blood NEGATIVE (NEG); Urine Glucose NEGATIVE (NEG); Urine Protein 1+ (NEG); Urine Specific Gravity 1.025 (1.005-1.030); Urine pH 5.5 (5.0-7.0)
[2018-01-29] MEDS ORDERED: POTASSIUM CL SA 10 MEQ TAB PO ONE (19:01)
[2018-01-29 19:02] LABS: Urine Bacteria <20 /HPF (<20); Urine Culture Reflex Order REFLEXED; Urine Mucus 1+ /HPF (NONE SEEN); Urine RBC <5 /HPF (NONE SEEN)
--- NOTE | 2018-01-29 19:03 | ER ---
Nurse's Notes [facility] Name: Rose Marie Carrasco Age: 57 yrs Sex: Female : 1960 Arrival Date: 01/29/2018 Time: 16:48 Bed 28 Private MD: Diagnosis: Unspecified abdominal pain-Chronic Presentation: 01/29 16:48 Presenting complaint: EMS states: severe abdominal pain. Transition of care: patient tl3 was not received from another setting of care. Onset of symptoms was January 29, 2018. Initial Sepsis Screen: Does the patient meet any 2 criteria? No. Patient's initial sepsis screen is negative. Does the patient have a suspected source of infection? No. Patient's initial sepsis screen is negative. Note pt has two colostomy bags has taken all of her pain meds, filled on the , daughter was OOT and when she got back Tuesday all of the pain meds were gone. Care prior to arrival: None. 16:48 Method Of Arrival: EMS: [facility] tl3 16:48 Acuity: MAU 3 tl3 Triage Assessment: 16:55 General: Appears distressed, uncomfortable, unkempt, Behavior is listless, restless. tl3 Pain: Complains of pain in abdomen. 16:55 EENT: No signs and/or symptoms were reported regarding the EENT system. Neuro: Level of tl3 Consciousness is awake, alert, obeys commands, Oriented to person, place, time, situation, Appropriate for age. Cardiovascular: Heart tones S1 S2 present Patient's skin is warm and dry. Respiratory: Airway is patent Trachea midline Respiratory effort is even, unlabored, Respiratory pattern is regular, symmetrical, Breath sounds are clear bilaterally. GI: Reports lower abdominal pain, upper abdominal pain. : No signs and/or symptoms were reported regarding the genitourinary system. Derm: No signs and/or symptoms reported regarding the dermatologic system. Musculoskeletal: No signs and/or symptoms reported regarding the musculoskeletal system. Historical: - Home Meds: 16:55 gabapentin 300 mg oral cap [Active]; Zofran (as hydrochloride) 4 mg Oral tab [Active]; tl3 [place] Oral [Active]; tramadol 50 mg Oral tab [Active]; magnesium oxide 400 mg Oral tab [Active]; nystatin 100,000 unit/mL Oral susp [Active]; - PMHx: 16:55 COPD; Hypertension; tl3 - PSHx: 16:55 Hysterectomy; Appendectomy; Bowel Obstruction; Colostomy; tl3 - Immunization history:: Adult Immunizations up to date. - Social history:: Smoking status: unknown. - Family history:: not pertinent. - Hospitalizations: : Patient was recently seen at. Screenin:40 Abuse screen: Denies threats or abuse. Nutritional screening: No deficits noted. rk2 Tuberculosis screening: No symptoms or risk factors identified. Fall Risk Secondary diagnosis (15 points). Assessment: 17:20 General: Appears uncomfortable, slender, malnourished, Behavior is calm, cooperative. rk2 17:20 Pain: Complains of pain in abdomen. Neuro: Level of Consciousness is alert, obeys rk2 commands, Oriented to person, place, time, situation. Cardiovascular: Rhythm is sinus tachycardia. Respiratory: Airway is patent Trachea Respiratory effort is even, unlabored. GI: Abdomen is flat, Colostomy site Abd fistula. Derm: Skin is pink, warm \T\ dry. 17:50 Reassessment: Pt. returned from CT. rk2 18:30 Reassessment: Pt. resting in room, appears to be in no distress... called out several rk2 time for pain medication. Provider notified and medication ordered/given. No other needs \T\ this time. 19:30 Reassessment: Pt. resting in room \T\ this time... appears to be in no distress. Pt. rk2 still c/o of abd pain, provider aware. No other needs voiced \T\ this time other than pt. given ice chips. Vital Signs: 16:55 BP 121 / 91; Pulse 136; Resp 20; Pulse Ox 98% ; tl3 17:35 BP 118 / 72; Pulse 121; Resp 17; Pulse Ox 96% on R/A; rk2 19:02 BP 132 / 78; Pulse 109; Resp 17; Pulse Ox 96% on R/A; rk2 19:20 Temp 98.3; rk2 20:15 BP 146 / 77; Pulse 114; Resp 17; Pulse Ox 98% ; rk2 20:45 BP 146 / 96; Pulse 113; Resp 17; Pulse Ox 97% on R/A; rk2 ED Course: 16:48 Patient arrived in ED. tl3 16:51 Triage completed. tl3 16:53 Marcelino Sinclair MD is Attending Physician. wa 16:55 Arm band placed on right wrist. tl3 16:59 Christa Sánchez, EVERARDO is Primary Nurse. rk2 17:40 Patient has correct armband on for positive identification. Bed in low position. Call rk2 light in reach. Side rails up X2. quality assurance monitor chassis on. Pulse ox on. 17:42 CT completed. Patient moved to CT via stretcher. Patient moved back from CT. cw1 17:43 CT Abd/Pelvis - Without Cont In Process Unspecified. EDMS 17:52 XRAY Chest (1 view) In Process Unspecified. EDMS 19:08 Notified ED physician of a critical lab result(s). Lactate 35.9. la1 19:40 Linden Castillo PA is PHCP. cp 20:53 Notified Nurse Practitioner and/or Physician Drafter Marine of a critical lab result(s), fc Lactate of 22.4. 21:30 No provider procedures requiring assistance completed. IV discontinued. rk2 Administered Medications: 17:30 Drug: NS 0.9% 1000 ml Route: IV; Rate: 1 bolus; Site: left upper arm; rk2 18:30 Follow up: Response: No adverse reaction; IV Status: Completed infusion rk2 17:30 Drug: Zofran 4 mg Route: IVP; Site: left upper arm; rk2 18:54 Follow up: Response: No adverse reaction rk2 17:30 Drug: morphine 4 mg Route: IVP; Site: left upper arm; rk2 18:54 Follow up: Response: No adverse reaction rk2 18:17 Drug: TORadol 30 mg Route: IVP; Site: left upper arm; rk2 18:56 Follow up: Response: No adverse reaction rk2 19:04 Drug: Potassium Chloride 40 mEq Route: PO; rk2 19:48 Follow up: Response: No adverse reaction rk2 19:37 Drug: NS 0.9% 500 ml Route: IV; Rate: bolus; Site: left upper arm; rk2 20:30 Follow up: Response: No adverse reaction; IV Status: Completed infusion rk2 Outcome: 19:02 Discharge ordered by . wa 20:58 Discharge ordered by . cp 21:30 Discharged to home via wheelchair. rk2 21:30 Condition: good 21:30 Discharge instructions given to patient, Prescriptions given X 2. 21:31 Patient left the ED. rk2 Addendum: 02/02/2018 10:38 Addendum: Culture Results: Positive urine culture. Patient was not prescribed i w antibiotics at discharge. Report given to EBER for further evaluation and then to timber selector for follow up with patient. Phone call Attempt #1 pt did not answer, unable to leave voice mail, mail box full. Signatures: Dispatcher [employer] EDMS Delmy Wilder RN RN Winsome Veloz RN RN iw Woodley, Crystal cw1 Stevenson Oneal RN RN la1 Linden Castillo PA PA cp Appiah, William, MD MD wa Kidder, Rhonda RN RN rk2 Susan Nichols RN RN tl3 Corrections: (The following items were deleted from the chart) 01/29 20:33 18:30 Reassessment: Pt. resting in room, appears to be in no distress... called out rk2 several time for pain medication. Provider aware. No other needs \T\ this time. rk2
--- NOTE | 2018-01-29 19:03 | EDPHYS ---
Physician Documentation [facility] Name: Rose Marie Carrasco Age: 57 yrs Sex: Female : 1960 Arrival Date: 01/29/2018 Time: 16:48 Bed 28 Private MD: ED Physician Marcelino Sinclair HPI: 01/29 17:33 This 57 yrs old Female presents to ER via EMS with complaints of Abdominal wa Pain. 17:33 The patient presents with abdominal pain that is diffuse. Onset: The symptoms/episode wa began/occurred today. The symptoms do not radiate. Associated signs and symptoms: Pertinent positives: nausea, Pertinent negatives: chest pain, vomiting. The symptoms are described as achy. Modifying factors: The symptoms are alleviated by nothing, the symptoms are aggravated by alcohol. Severity of pain: At its worst the pain was severe in the emergency department the pain is unchanged. The patient has experienced similar episodes in the past, several times, h/o bowel obstructions. pt has fistulae. also wears colostomy bag. The patient has not recently seen a physician. Historical: - Home Meds: 16:55 gabapentin 300 mg oral cap [Active]; Zofran (as hydrochloride) 4 mg Oral tab [Active]; tl3 [place] Oral [Active]; tramadol 50 mg Oral tab [Active]; magnesium oxide 400 mg Oral tab [Active]; nystatin 100,000 unit/mL Oral susp [Active]; - PMHx: 16:55 COPD; Hypertension; tl3 - PSHx: 16:55 Hysterectomy; Appendectomy; Bowel Obstruction; Colostomy; tl3 - Immunization history:: Adult Immunizations up to date. - Social history:: Smoking status: unknown. - Family history:: not pertinent. - Hospitalizations: : Patient was recently seen at. ROS: 17:41 Constitutional: Negative for fever, chills, and weight loss, Eyes: Negative for injury, wa pain, redness, and discharge, ENT: Negative for injury, pain, and discharge, Neck: Negative for injury, pain, and swelling, Cardiovascular: Negative for chest pain, palpitations, and edema, Respiratory: Negative for shortness of breath, cough, wheezing, and pleuritic chest pain, Back: Negative for injury and pain, : Negative for injury, bleeding, discharge, and swelling, MS/Extremity: Negative for injury and deformity, Skin: Negative for injury, rash, and discoloration, Neuro: Negative for headache, weakness, numbness, tingling, and seizure, Psych: Negative for depression, anxiety, suicide ideation, homicidal ideation, and hallucinations. 17:41 Abdomen/GI: Positive for abdominal pain, Negative for vomiting, diarrhea. Exam: 17:41 Constitutional: This is a well developed, well nourished patient who is awake, alert, wa and in no acute distress. Head/Face: Normocephalic, atraumatic. Eyes: Pupils equal round and reactive to light, extra-ocular motions intact. Lids and lashes normal. Conjunctiva and sclera are non-icteric and not injected. Cornea within normal limits. Periorbital areas with no swelling, redness, or edema. ENT: Nares patent. No nasal discharge, no septal abnormalities noted. Tympanic membranes are normal and external auditory canals are clear. Oropharynx with no redness, swelling, or masses, exudates, or evidence of obstruction, uvula midline. Mucous membranes moist. Neck: Trachea midline, no thyromegaly or masses palpated, and no cervical lymphadenopathy. Supple, full range of motion without nuchal rigidity, or vertebral point tenderness. No Meningismus. Chest/axilla: Normal chest wall appearance and motion. Nontender with no deformity. No lesions are appreciated. Back: No spinal tenderness. No costovertebral tenderness. Full range of motion. Skin: Warm, dry with normal turgor. Normal color with no rashes, no lesions, and no evidence of cellulitis. MS/ Extremity: Pulses equal, no cyanosis. Neurovascular intact. Full, normal range of motion. Neuro: Awake and alert, GCS 15, oriented to person, place, time, and situation. Cranial nerves II-XII grossly intact. Motor strength 5/5 in all extremities. Sensory grossly intact. Cerebellar exam normal. Normal gait. Psych: Awake, alert, with orientation to person, place and time. Behavior, mood, and affect are within normal limits. 17:41 Cardiovascular: Rate: tachycardic, Rhythm: regular, Pulses: no pulse deficits are appreciated, Heart sounds: normal, Edema: is not appreciated. 17:41 Respiratory: the patient does not display signs of respiratory distress, Respirations: normal, Breath sounds: note barrel chest. diminished breath sounds bilaterally. pursed lip breathing consistent with emphesema. Vital Signs: 16:55 BP 121 / 91; Pulse 136; Resp 20; Pulse Ox 98% ; tl3 17:35 BP 118 / 72; Pulse 121; Resp 17; Pulse Ox 96% on R/A; rk2 19:02 BP 132 / 78; Pulse 109; Resp 17; Pulse Ox 96% on R/A; rk2 19:20 Temp 98.3; rk2 20:15 BP 146 / 77; Pulse 114; Resp 17; Pulse Ox 98% ; rk2 20:45 BP 146 / 96; Pulse 113; Resp 17; Pulse Ox 97% on R/A; rk2 MDM: 16:53 Patient medically screened. wa 17:44 Differential diagnosis: abd pain. r/o acute bowel obstruction. wa 18:39 Data reviewed: vital signs, nurses notes, lab test result(s), radiologic studies. Test wa interpretation: by ED physician or midlevel provider: labs noted for hypokalemia. elevated alk phos. anemia. CXR: COPD. CT abd/pelvis: no acute bowel obstruction. complex post-surgical chages. 19:00 Response to treatment: the patient's symptoms have markedly improved after treatment. md ED course: replaced potassium po. will d/c home. has appt with her surgeon patrizia. 19:05 Test interpretation: by ED physician or midlevel provider: EKG: HR 135. sinus tach. LVH wa with repol. 20:57 Data reviewed: vital signs, nurses notes, lab test result(s), repeat lactate lower than cp previous. Abdominal pain improved. Patient reports having appt with surgeon tomorrow. Will discharge to home for continued monitroing. 01/29 17:15 Order name: Basic Metabolic Panel; Complete Time: 18:04 md 01/29 20:56 Interpretation: Normal except: K 3.1; GLUC 127. cp 01/29 17:15 Order name: BNP; Complete Time: 18:04 md 01/29 17:15 Order name: CBC with Diff; Complete Time: 18:08 md 01/29 20:55 Interpretation: Normal except: HGB 11.1; HCT 34.9; MCH 26.9; MCHC 31.9; PLT 566; RDW cp 17.2; MPV 6.9. 01/29 17:15 Order name: LFT's; Complete Time: 18:04 md 01/29 20:56 Interpretation: Normal except: ALK 139; BILIT 0.2; ALB 2.5; GLOB 4.5; A/G 0.6. cp 01/29 17:15 Order name: Magnesium; Complete Time: 18:04 md 01/29 17:15 Order name: PT-INR; Complete Time: 18:04 md 01/29 17:15 Order name: Troponin (emerg Dept Use Only); Complete Time: 18:04 md 01/29 17:15 Order name: XRAY Chest (1 view); Complete Time: 18:04 md 01/29 17:15 Order name: CT Abd/Pelvis - Without Cont; Complete Time: 18:04 md 01/29 18:07 Order name: Urine Microscopic Only; Complete Time: 19:40 md 01/29 18:07 Order name: Lactate; Complete Time: 19:40 md 01/29 18:10 Order name: Urine Dipstick--Ancillary (enter results); Complete Time: 18:38 01/29 19:04 Order name: Urine Culture EDPA 01/29 19:37 Order name: Lactate; Complete Time: 20:55 md 01/29 20:56 Interpretation: Abnormal: LAC 22.4. 01/29 17:15 Order name: EKG; Complete Time: 17:15 md 01/29 17:15 Order name: Cardiac monitoring; Complete Time: 17: md 01/29 17:15 Order name: EKG - Nurse/Tech; Complete Time: 17: md 01/29 17:15 Order name: IV Saline Lock; Complete Time: 17: md 01/29 17:15 Order name: Labs collected and sent; Complete Time: 17: md 01/29 17:15 Order name: O2 Per Protocol; Complete Time: 17: md 01/29 17:15 Order name: O2 Sat Monitoring; Complete Time: 17: md 01/29 17:15 Order name: Urine Dipstick-Ancillary (obtain specimen); Complete Time: 18:07 md Administered Medications: 17:30 Drug: NS 0.9% 1000 ml Route: IV; Rate: 1 bolus; Site: left upper arm; rk2 18:30 Follow up: Response: No adverse reaction; IV Status: Completed infusion rk2 17:30 Drug: Zofran 4 mg Route: IVP; Site: left upper arm; rk2 18:54 Follow up: Response: No adverse reaction rk2 17:30 Drug: morphine 4 mg Route: IVP; Site: left upper arm; rk2 18:54 Follow up: Response: No adverse reaction rk2 18:17 Drug: TORadol 30 mg Route: IVP; Site: left upper arm; rk2 18:56 Follow up: Response: No adverse reaction rk2 19:04 Drug: Potassium Chloride 40 mEq Route: PO; rk2 19:48 Follow up: Response: No adverse reaction rk2 19:37 Drug: NS 0.9% 500 ml Route: IV; Rate: bolus; Site: left upper arm; rk2 20:30 Follow up: Response: No adverse reaction; IV Status: Completed infusion rk2 Disposition: 01/29/18 20:58 Discharged to Home. Impression: Unspecified abdominal pain - Chronic. - Condition is Stable. - Discharge Instructions: Abdominal Pain, Adult. - Prescriptions for Bentyl 20 mg Oral Tablet - take 2 tablet by ORAL route every 6 hours As needed; 40 tablet. Zofran 4 mg Oral Tablet - take 1 tablet by ORAL route every 12 hours As needed; 20 tablet. - Medication Reconciliation Form, Thank You Letter, Antibiotic Education, Prescription Opioid Use form. - Follow up: Private Physician; When: 1 - 2 days; Reason: Recheck today's complaints. - Problem is chronic. - Symptoms have improved. - Notes: take your medicines per your regimen. follow up with your doctor tomorrow Addendum: 02/07/2018 05:59 Co-signature as Attending Physician, Marcelino Sinclair MD I agree with the assessment and w a plan of care. Signatures: Dispatcher [employer] EDPA Linden Castillo PA PA cp Appiah, William, MD MD wa Kidder, Rhonda RN RN rk2 Susan Nichols, RN RN tl3 Corrections: (The following items were deleted from the chart) 01/29 19:02 19:02 01/29/2018 19:02 Discharged to Home. Impression: Abdominal Pain. Condition is wa Stable. Forms are Medication Reconciliation Form, Thank You Letter, Antibiotic Education, Prescription Opioid Use. Follow up: Private Physician; When: Tomorrow; Reason: Recheck today's complaints. Problem is an acute exacerbation. Symptoms have improved. wa 19:36 19:02 01/29/2018 19:02 Discharged to Home. Impression: Abdominal Pain; Hypokalemia. md Condition is Stable. Forms are Medication Reconciliation Form, Thank You Letter, Antibiotic Education, Prescription Opioid Use. Follow up: Private Physician; When: Tomorrow; Reason: Recheck today's complaints. Problem is an acute exacerbation. Symptoms have improved. md 19:36 19:36 01/29/2018 19:02 Discharged to Other. Impression: Abdominal Pain; Hypokalemia. md Condition is Stable. Discharge Instructions: Abdominal Pain, Adult, [id number]. Forms are Medication Reconciliation Form, Thank You Letter, Antibiotic Education, Prescription Opioid Use. Follow up: Private Physician; When: Tomorrow; Reason: Recheck today's complaints. Problem is an acute exacerbation. Symptoms have improved. md 21:31 20:58 01/29/2018 20:58 Discharged to Home. Impression: Unspecified abdominal pain - rk2 Chronic. Condition is Stable. Forms are Medication Reconciliation Form, Thank You Letter, Antibiotic Education, Prescription Opioid Use. Follow up: Private Physician; When: 1 - 2 days; Reason: Recheck today's complaints. Problem is chronic. Symptoms have improved. cp
[2018-01-29 21:39] VITALS: TEMP 98.3
[2018-01-29 21:42] VITALS: BP 146/96; O2SAT 97
--- NOTE | 2018-01-30 14:45 | EKG ---
Test Date: 2018-01-29 Test Time: 17:12:37 Palliative Care Nurse: TL MEASUREMENT RESULTS: Intervals: Rate: 135 VA: 132 QRSD: 72 QT: 302 QTc: 453 Berry: P: 77 VA: 132 QRS: 77 T: 268 INTERPRETIVE STATEMENTS: Sinus tachycardia Left ventricular hypertrophy with repolarization abnormality Abnormal ECG Compared to ECG 12/24/2017 17:46:25 Early repolarization now present Sinus rhythm no longer present T-wave abnormality no longer present Prolonged QT interval no longer present Electronically Signed On 01-30-18 14:45:11 CDT by Real Concepcion
== END 2018-01-29 21:31 | disposition home or self-care (01) ==
LOC: ER 16:46
DX: R10.9 Unspecified abdominal pain (principal); I10 Essential (primary) hypertension; J44.9 Chronic obstructive pulmonary disease, unspecified
CPT/HCPCS: 36415; 71045; 74176; 80048; 80076; 81003; 81015; 83605; 83735; 83880; 84484; 85025; 85610; 87077; 87086; 87088; 87186; 93005; 96361; 96374; 96375; 99285; J2405; J7030